=== PATIENT | male | born 1950 | race Caucasian/White ===

== ENCOUNTER 2017-07-21 07:25 | Day surgery (SDC) | payer MEDICARE ==
[2017-07-14 15:34] VITALS: BMI 30.1
[~2017-07-21 07:25] MED LIST: LACTATED RINGERS 1,000 ML IV SCH; LIDOCAINE 1% 20 ML VIAL (10MG/ML) FOR IV START INTRADERMA PRN
[2017-07-21] MEDS: CYCLOPENTOLATE 1% OPHTH SOLN 2 ML BTL OP ONE ×2 (07:40→07:55)
[2017-07-21] MEDS: PHENYLEPHRINE 10% OPHTH DROPS 5 ML BTL OP ONE ×2 (07:43→07:51)
[2017-07-21] MEDS: KETOROLAC 0.5% OPHTH DROPS 3 ML BTL OP ONE ×3 (07:46→07:59)
[2017-07-21 07:47] VITALS: RESP 16; TEMP 98
[2017-07-21 07:47] LABS: Glucose,Whole Blood 93 mg/dL (75-99)
[2017-07-21] MEDS ORDERED: PROPOFOL 10 MG/ML 20 ML VIAL IV ONE ×2 (08:07→08:41)
[2017-07-21] MEDS ORDERED: BALANCED SALT IRRIG SOLN COMB2 15 ML IRRIG.SOLN INTRAOCULA ONE ×2 (08:40→08:51)
[2017-07-21] MEDS: TIMOLOL 0.5% OPHTH SOLN (PF) 0.2 ML DROPERETTE OP ONE ×2 (08:40→08:50)
[2017-07-21] MEDS: GENTAMICIN/PREDNISOL AC OPHTH OINT 3.5GM OPHTHALMIC ONE ×2 (08:40→08:50)
[2017-07-21] MEDS ORDERED: HYALURONATE SODIUM INTRAOCULAR 1 EACH SYRINGE (10MG/ML) INTRAOCULA ONE ×2 (08:40→08:51)
[2017-07-21] MEDS: BUPIVACAINE (PF) 0.75% 5 ML, LIDOCAINE 4% (PF) 5 ML, HYALURONIDASE, HUMAN RECOMB 150 UNIT MISCELLANE ONE ×6 (08:40→08:44)
[2017-07-21] MEDS ORDERED: EPINEPHrine (PF) 0.5 ML in BALANCED SALT IRRIG SOLN COMB2 500 ML IRRIGATION ONE (08:41)
--- NOTE | 2017-07-21 09:03 | P.OP ---
Date of Procedure: 07/21/17 Preoperative Diagnosis: Postoperative Diagnosis: Procedure(s) Performed: PREOPERATIVE DIAGNOSIS: Cataract, left eye. POSTOPERATIVE DIAGNOSIS: Cataract, left eye. OPERATION: Phacoemulsification cataract, left eye. DESCRIPTION OF PROCEDURE: The patient was taken to the preoperative holding area. Intravenous Propofol was given so as to bring about adequate sedation. The following mixture was given for local anesthesia: 5 mL of 2% lidocaine, 5 mL of 0.75% Marcaine, and 1 mL of Wydase. Approximately 4 mL was injected in the retrobulbar space of the surgical eye. Additional 1 mL was then directed to the temporal area of the surgical eye. This was performed to allow adequate neurological block of the facial muscles. The patient was revived and then taken into the operative room. The patient was prepped and draped in the usual sterile manner for the operative eye. A lid speculum was put into position. The conjunctiva was resected back from the limbus in the 12 o'clock position. Bleeding was controlled with electrocautery. A #69 blade was then used and a half-thickness scleral incision approximately 1-mm posterior to the limbus was made on bare sclera. This was shelved in the clear cornea using a crescent knife. Next a 15-degree blade was used to make a stab incision at the 3 o' clock position at the corneolimbal interface. Keratome blade was then used and the superior wound was extended into the anterior chamber. Viscoelastic was injected into the anterior chamber and to maintain its form. Next, a cystotome was used and a continuous anterior capsulotomy was made without difficulty. Hydrodissection using a blunt cannula and BSS was performed. Phaco probe was then employed and a groove extending from 12 to 6 o'clock in the lens was created. A Patrice wand was used through the stab incision so as to perform a divide and conquer technique. Next an irrigation aspiration probe was utilized and any residual cortex was removed from the eye. Again, viscoelastic was injected into the anterior chamber. An Louie posterior chamber lens implant was placed in the cartridge and injected into the anterior chamber without difficulty. The ReadyCartey hook was utilized to spin the lens into position and this was again performed without any difficulty. The irrigation and aspiration probe was again employed and any residual viscoelastic was removed from the eye. Then BSS was injected into the limbal stab incision and the anterior chamber re-inflated. The conjunctiva was reapproximated using electrocautery. One drop of 0.25% Timoptic was placed over the corneal along with TobraDex ophthalmic ointment. Two sterile patches and a Ball eye shield were taped into position. The patient was transported to the recovery room in stable condition. Implants: Pathology: none sent Condition: stable Disposition: same day Indications for Procedure: Operative Findings: Description of Procedure:
[2017-07-21 09:24] VITALS: BP 119/71; PULSE 77
[2017-07-21 09:53] LABS: Glucose,Whole Blood 99 mg/dL (75-99)
== END 2017-07-21 10:17 | disposition home or self-care (01) ==
LOC: OR 07:25
PROVIDERS: ATTEND Ophthalmology
DX: H25.042 Posterior subcapsular polar age-related cataract, left eye (principal); I10 Essential (primary) hypertension; E11.9 Type 2 diabetes mellitus without complications; I25.10 Atherosclerotic heart disease of native coronary artery without angina pectoris; I25.2 Old myocardial infarction; J44.9 Chronic obstructive pulmonary disease, unspecified; M19.90 Unspecified osteoarthritis, unspecified site; K21.9 Gastro-esophageal reflux disease without esophagitis; F17.200 Nicotine dependence, unspecified, uncomplicated; Z79.84 Long term (current) use of oral hypoglycemic drugs; Z79.82 Long term (current) use of aspirin; Z79.4 Long term (current) use of insulin; Z79.899 Other long term (current) drug therapy
CPT/HCPCS: 66984; V2632; J2001; J3470; J0171; J2704

== ENCOUNTER 2022-01-06 13:26 | Inpatient (IN) | payer MEDICARE ==
[2022-01-06] MEDS ORDERED: SODIUM CHLORIDE 0.9% 500 ML 500 ML IV STA (16:04)
[2022-01-06 16:39] LABS: Basophils % (A) 0 %; Eosinophils # (A) 0.2 k/uL (0-0.7); Eosinophils % (A) 1 %; HCT 32.4 % (39.0-53.0); HGB 10.4 gm/dL (13.0-17.5); Lymphocytes # (A) 0.3 k/uL (1.0-4.8); Lymphocytes % (A) 3 %; MCV 97.1 fL (80.0-100.0); Mean Platelet Volume 8.1; Monocytes # (A) 0.4 k/uL (0-1.0); Monocytes % (A) 3 %; Neutrophils # (A) 11.3 k/uL (1.3-7.7); Neutrophils % (A) 93 %; Platelet Count 250 k/uL (150-450); RBC 3.34 m/uL (4.30-5.90); RDW 14.8 % (11.5-15.5); WBC 12.2 k/uL (3.8-10.6)
--- NOTE | 2022-01-06 16:42 | XR ---
EXAMINATION TYPE: XR chest 1V portable DATE OF EXAM: 01/06/2022 4:37 PM COMPARISON:None TECHNIQUE: Frontal view of the chest. CLINICAL INDICATION:Male, 72 years old with history of abdominal pain; FINDINGS: Lungs/Pleura: Multifocal airspace opacities. No evidence of pneumothorax or pleural effusion. Pulmonary vascularity: Unremarkable. Heart/mediastinum: Cardiomediastinal silhouette is unremarkable. Musculoskeletal: No acute osseous pathology. IMPRESSION: Subtle scattered opacities which may represent an atypical pneumonia. Correlate for covid 19.
[2022-01-06] MEDS ORDERED: ONDANSETRON 4 MG/2 ML VIAL IVP STA (16:46)
[2022-01-06] MEDS ORDERED: MORPHINE SULFATE 4 MG/ML SYRINGE IV STA (16:46)
--- NOTE | 2022-01-06 16:47 | ED ---
General Adult HPI - General Chief complaint: Abdominal Pain Stated complaint: Abd pain Time Seen by Provider: 01/06/22 16:03 Source: patient, RN notes reviewed Mode of arrival: ambulatory - History of Present Illness Initial comments: This is a pleasant 72-year-old male with a history of bladder cancer. He presents to emergency department today stating that he has a rock hard area to his abdomen. Patient was recently admitted to the hospital for urinary tract infection and pneumonia. Patient was coughing had an episode of vomiting this morning. Patient states he then noticed that he had a distended, hard area to his abdomen which is quite painful. No headache, no fever or chills, no changes in vision or hearing, no sore throat or difficulty with speech, no neck pain, no chest pain or shortness of breath, no changes in urination or bowel movements, no numbness or tingling, no extremity pain, no skin rashes or lesions. - Related Data Home Medications Medication Instructions Recorded Confirmed Aspirin 81 mg PO DAILY 06/20/15 01/06/22 Atorvastatin [Lipitor] 20 mg PO DAILY 06/20/15 01/06/22 Omeprazole [PriLOSEC] 20 mg PO DAILY 06/20/15 01/06/22 Isosorbide Mononitrate ER [Imdur] 30 mg PO DAILY 07/14/17 01/06/22 Cholecalciferol [Vitamin D3 (25 25 mcg PO DAILY 01/06/22 01/06/22 Mcg = 1000 Iu)] Clopidogrel [Plavix] 75 mg PO DAILY 01/06/22 01/06/22 Docusate [Colace] 100 mg PO DAILY 01/06/22 01/06/22 Empagliflozin [Jardiance] 10 mg PO HS 01/06/22 01/06/22 Insulin Aspart Protam & Aspart 20 unit SQ BID 01/06/22 01/06/22 [NovoLOG MIX 70-30 Flexpen] Metoclopramide [Reglan] 10 mg PO TID PRN 01/06/22 01/06/22 Montelukast [Singulair] 10 mg PO HS 01/06/22 01/06/22 lisinopriL [Zestril] 5 mg PO DAILY 01/06/22 01/06/22 Allergies Allergy/AdvReac Type Severity Reaction Status Date / Time No Known Allergies Allergy Verified 01/06/22 17:24 Review of Systems ROS Statement: Those systems with pertinent positive or pertinent negative responses have been documented in the HPI. ROS Other: All systems not noted in ROS Statement are negative. Past Medical History Past Medical History: Coronary Artery Disease (CAD), Diabetes Mellitus, Eye Disorder, GERD/Reflux, Hyperlipidemia, Hypertension, Osteoarthritis (OA), Prostate Disorder Additional Past Medical History / Comment(s): ENLARGED PROSTATE, 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 History of Any Multi-Drug Resistant Organisms: None Reported Past Surgical History: Heart Catheterization With Stent Additional Past Surgical History / Comment(s): EXC.CATARACT RT EYE WITH LENS IMPLANT, COLONOSCOPY 01/2015, FATTY TUMORS REMOVED FROM STOMACH Past Anesthesia/Blood Transfusion Reactions: No Reported Reaction Date of Last Stent Placement:: 2008 Past Psychological History: No Psychological Hx Reported Smoking Status: Current every day smoker Past Alcohol Use History: Rare Past Drug Use History: None Reported - Past Family History Mother Family Medical History: Cancer, Deep Vein Thrombosis (DVT), Hypertension Additional Family Medical History / Comment(s): OF BREAST CA Father Family Medical History: Cancer Additional Family Medical History / Comment(s): STOMACH CA General Exam General appearance: alert, in distress Head exam: Present: atraumatic, normocephalic, normal inspection Eye exam: Present: normal appearance, PERRL, EOMI. Absent: scleral icterus, conjunctival injection, periorbital swelling ENT exam: Present: normal exam, mucous membranes moist Neck exam: Present: normal inspection. Absent: tenderness, meningismus, lym phadenopathy Respiratory exam: Present: normal lung sounds bilaterally. Absent: respiratory distress, wheezes, rales, rhonchi, stridor Cardiovascular Exam: Present: regular rate, normal rhythm, normal heart sounds. Absent: systolic murmur, diastolic murmur, rubs, gallop, clicks GI/Abdominal exam: Present: soft, distended, tenderness, guarding, normal bowel sounds, other (Patient has a urostomy in the right lower quadrant area. Distended over this area with increased bowel sounds over the area as well.). Absent: rebound, rigid Extremities exam: Present: normal inspection, full ROM, normal capillary refill. Absent: tenderness, pedal edema, joint swelling, calf tenderness Back exam: Present: normal inspection Neurological exam: Present: alert, oriented X3, CN II-XII intact Psychiatric exam: Present: normal affect, normal mood Skin exam: Present: warm, dry, intact, normal color. Absent: rash Course Vital Signs 01/06/22 01/06/22 01/06/22 13:27 17:00 17:30 Temperature 97.7 F 100.0 F H Pulse Rate 77 76 72 Respiratory 18 18 20 Rate Blood Pressure 133/72 116/68 92/54 O2 Sat by Pulse 96 95 95 Oximetry 01/06/22 01/06/22 18:00 18:51 Temperature 100.4 F H Pulse Rate 92 92 Respiratory 22 20 Rate Blood Pressure 102/55 84/54 O2 Sat by Pulse 95 95 Oximetry - Reevaluation(s) Reevaluation #1: 01/06/22 18:10 Medical record is reviewed Patient still complaining of pain. Patient's CAT scan shows a strangulate hernia with perforation per radiology. I did speak to the radiologist on the phone, waiting official report. Gen. surgery called. Patient is informed of results and questions answered Patient in no distress EKG Findings - EKG Comments: EKG Findings:: EKG reveals atrial fibrillation with left axis deviation, pulmonary disease pattern, no acute ST or T-wave changes. Other intervals are normal. Medical Decision Making - Medical Decision Making Case discussed with the on-call surgeon, Dr. Coffey. He stated that he was going to call the operating room for surgical intervention of the patient's strangulated abdominal wall hernia. Patient was given 3.375 g of Zosyn here in the ED. Blood cultures were sent. In the dynamically stable. The case was discussed in detail with ED attending physician. Presentation, findings, treatment plan discussed in detail. - Lab Data Result diagrams: 01/16/22 18:56 01/16/22 05:18 Lab Results 01/06/22 01/06/22 01/06/22 Range/Units 16:29 16:29 16:29 WBC 12.2 H (3.8-10.6) k/uL RBC 3.34 L (4.30-5.90) m/uL Hgb 10.4 L (13.0-17.5) gm/dL Hct 32.4 L (39.0-53.0) % MCV 97.1 (80.0-100.0) fL MCH 31.0 (25.0-35.0) pg MCHC 32.0 (31.0-37.0) g/dL RDW 14.8 (11.5-15.5) % Plt Count 250 (150-450) k/uL MPV 8.1 Neutrophils % 93 % Lymphocytes % 3 % Monocytes % 3 % Eosinophils % 1 % Basophils % 0 % Neutrophils # 11.3 H (1.3-7.7) k/uL Lymphocytes # 0.3 L (1.0-4.8) k/uL Monocytes # 0.4 (0-1.0) k/uL Eosinophils # 0.2 (0-0.7) k/uL Basophils # 0.0 (0-0.2) k/uL Sodium 138 (137-145) mmol/L Potassium 4.8 (3.5-5.1) mmol/L Chloride 101 (98-107) mmol/L Carbon Dioxide 24 (22-30) mmol/L Anion Gap 13 mmol/L BUN 47 H (9-20) mg/dL Creatinine 3.17 H (0.66-1.25) mg/dL Est GFR (CKD-EPI)AfAm 21 (>60 ml/min/1.73 sqM) Est GFR (CKD-EPI)NonAf 18 (>60 ml/min/1.73 sqM) Glucose 252 H (74-99) mg/dL Plasma Lactic Acid Guero 1.1 (0.7-2.0) mmol/L Calcium 9.6 (8.4-10.2) mg/dL Total Bilirubin 0.5 (0.2-1.3) mg/dL AST 21 (17-59) U/L ALT 20 (4-49) U/L Alkaline Phosphatase 103 (38-126) U/L Troponin I (0.000-0.034) ng/mL Total Protein 8.0 (6.3-8.2) g/dL Albumin 4.1 (3.5-5.0) g/dL Amylase 59 (30-110) U/L Lipase 84 (23-300) U/L Blood Type Blood Type Confirm Blood Type Recheck Bld Type Recheck Status Antibody Screen Spec Expiration Date 01/06/22 01/06/22 01/06/22 Range/Units 16:29 18:45 18:46 WBC (3.8-10.6) k/uL RBC (4.30-5.90) m/uL Hgb (13.0-17.5) gm/dL Hct (39.0-53.0) % MCV (80.0-100.0) fL MCH (25.0-35.0) pg MCHC (31.0-37.0) g/dL RDW (11.5-15.5) % Plt Count (150-450) k/uL MPV Neutrophils % % Lymphocytes % % Monocytes % % Eosinophils % % Basophils % % Neutrophils # (1.3-7.7) k/uL Lymphocytes # (1.0-4.8) k/uL Monocytes # (0-1.0) k/uL Eosinophils # (0-0.7) k/uL Basophils # (0-0.2) k/uL Sodium (137-145) mmol/L Potassium (3.5-5.1) mmol/L Chloride (98-107) mmol/L Carbon Dioxide (22-30) mmol/L Anion Gap mmol/L BUN (9-20) mg/dL Creatinine (0.66-1.25) mg/dL Est GFR (CKD-EPI)AfAm (>60 ml/min/1.73 sqM) Est GFR (CKD-EPI)NonAf (>60 ml/min/1.73 sqM) Glucose (74-99) mg/dL Plasma Lactic Acid Guero (0.7-2.0) mmol/L Calcium (8.4-10.2) mg/dL Total Bilirubin (0.2-1.3) mg/dL AST (17-59) U/L ALT (4-49) U/L Alkaline Phosphatase (38-126) U/L Troponin I 0.013 (0.000-0.034) ng/mL Total Protein (6.3-8.2) g/dL Albumin (3.5-5.0) g/dL Amylase (30-110) U/L Lipase (23-300) U/L Blood Type A Positive Blood Type Confirm A Positive Blood Type Recheck No Previous Record Bld Type Recheck Status CABO Indicated Antibody Screen NEGATIVE Spec Expiration Date 01/09/2022 - 2345 Disposition Clinical Impression: Strangulated hernia of abdominal wall, Bowel perforation, Chronic renal failure Disposition: ADMITTED IP TO THIS HOSP
[2022-01-06 16:49] LABS: Albumin 4.1 g/dL (3.5-5.0); Calcium 9.6 mg/dL (8.4-10.2); Potassium 4.8 mmol/L (3.5-5.1); Total Bilirubin 0.5 mg/dL (0.2-1.3)
[2022-01-06] MEDS ORDERED: PIPERACILLIN-TAZOBACTAM 3.375 GM in SODIUM CHLORIDE 0.9% 100 ML IVPB STA (18:00)
--- NOTE | 2022-01-06 18:07 | CT ---
EXAMINATION TYPE: CT abdomen pelvis wo con CT DLP: 786.7 mGycm, Automated exposure control for dose reduction was used. DATE OF EXAM: 01/06/2022 5:31 PM COMPARISON: None. CLINICAL INDICATION:Male, 72 years old with history of abd pain ; abdominal pain, distention TECHNIQUE: Standard CT of the abdomen and pelvis without IV or oral contrast. Lack of IV or oral co ntrast limits evaluation of solid and hollow organ viscera. Coronal and sagittal reformats were perfo rmed. FINDINGS: LOWER CHEST: Unremarkable ABDOMEN LIVER: Unremarkable GALLBLADDER AND BILE DUCTS: Layering high density seen within the gallbladder lumen. PANCREAS: Unremarkable. SPLEEN: Unremarkable. ADRENAL GLANDS: Unremarkable. KIDNEYS AND URETERS: Fat stranding changes to the bilateral kidneys with mild hydronephrosis. There h as been postsurgical changes of the urinary bladder with ileal conduit. Ileal conduit extends into th e ostomy site where there is a parastomal hernia with bowel present. The ileal conduit appears obstru cted near the neck adjacent to loop of small bowel which demonstrate surgical changes. The small alexandre l is dilated there appears to be pneumobilia within the wall the small bowel lumen suggesting strangu lation. Additionally appears to be stool is seen outside the expected lumen best appreciated on 90 of axial. PELVIS BLADDER: Surgically absent with ileal conduit. REPRODUCTIVE: Unremarkable. ABDOMEN & PELVIS STOMACH AND BOWEL: Colonic diverticulosis is present. A forementioned hernia as described above. No e vidence of bowel obstruction. PERITONEUM: No evidence of pneumoperitoneum or free fluid. VASCULATURE: Fusiform infrarenal aortic aneurysm measuring up to 3.7 cm. MUSCULOSKELETAL: No acute osseous abnormalities LYMPH NODES: No gross evidence for lymphadenopathy. SOFT TISSUE/ABDOMINAL WALL: Significant subcutaneous gas is seen around the hernia site superimposed infection is possible. No organizing fluid collection in the soft tissues. Findings communicated to Dr. Ignacio Ruiz, PAC on 01/06/2022 5:[address] Benji Larkin. IMPRESSION: 1. Findings suspicious for parastomal hernia which is obstructing the patient's ileal conduit throug h the subcutaneous tissues. This results in mild bilateral hydronephrosis and hydroureter and [place] i lanza conduit. 2. Parastomal hernia containing small bowel demonstrating pneumobilia suggesting strangulation small bowel with possible perforation. 3. Subcutaneous gas which may represent superimposed infections likely secondary to #2. No evidence o f organizing fluid collection at this time to suggest abscess. 4. Renal fusiform aortic aneurysm. Measuring up to 2.7 cm. 5. Colonic diverticulosis. 6. Biliary sludge/cholelithiasis.
[2022-01-06] MEDS ORDERED: NALOXONE 0.4 MG/ML 1 ML VIAL IV PRN ×2 (18:46→20:45)
[2022-01-06] MEDS ORDERED: 0.9% NACL WITH KCL 20 MEQ/L 1,000 ML IV SCH (19:00)
[2022-01-06] MEDS ORDERED: PHENYLEPHRINE-0.9% NACL SYG 1,000 MCG/10 ML SYRINGE ONE (19:40)
[2022-01-06] MEDS ORDERED: SUCCINYLCHOLINE CHLORIDE 100 MG/5 ML SYR IV ONE (19:40)
[2022-01-06] MEDS ORDERED: fentaNYL (PF) 50 MCG/ML 2 ML AMP ONE (19:40)
[2022-01-06] MEDS ORDERED: GLYCOPYRROLATE 0.2 MG/ML 2 ML VIAL ONE (19:40)
[2022-01-06] MEDS ORDERED: NEOSTIGMINE 1 MG/ML 10 ML VIAL ONE (19:40)
[2022-01-06] MEDS ORDERED: LACTATED RINGERS 1,000 ML IV ONE ×3 (19:40→21:00)
[2022-01-06] MEDS ORDERED: PROPOFOL 10 MG/ML 20 ML VIAL IV ONE (19:40)
[2022-01-06] MEDS ORDERED: ROCURONIUM 10 MG/ML (5 ML VIAL) IV ONE (19:40)
[2022-01-06] MEDS ORDERED: ONDANSETRON 4 MG/2 ML VIAL ONE (19:40)
--- NOTE | 2022-01-06 19:55 | P.GSHP ---
History of Present Illness H&P Date: 01/06/22 Chief Complaint: Strangulated parastomal hernia This a 72-year-old male who had an episode of coughing this morning. He then states he developed a mass at his his ostomy site. Patient developed pain and tenderness throughout the day. He was seen in the emergency room. His CAT scan shows a large parastomal hernia with possible strangulated the bowel. Patient states his urostomy was done at several years ago. He has a history of bladder cancer. Past Medical History Past Medical History: Coronary Artery Disease (CAD), Diabetes Mellitus, Eye Disorder, GERD/Reflux, Hyperlipidemia, Hypertension, Osteoarthritis (OA), Prostate Disorder Additional Past Medical History / Comment(s): ENLARGED PROSTATE, 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 History of Any Multi-Drug Resistant Organisms: None Reported Past Surgical History: Heart Catheterization With Stent Additional Past Surgical History / Comment(s): EXC.CATARACT RT EYE WITH LENS IMPLANT, COLONOSCOPY 01/2015, FATTY TUMORS REMOVED FROM STOMACH Past Anesthesia/Blood Transfusion Reactions: No Reported Reaction Date of Last Stent Placement:: 2008 Past Psychological History: No Psychological Hx Reported Smoking Status: Current every day smoker Past Alcohol Use History: Rare Past Drug Use History: None Reported - Past Family History Mother Family Medical History: Cancer, Deep Vein Thrombosis (DVT), Hypertension Additional Family Medical History / Comment(s): OF BREAST CA Father Family Medical History: Cancer Additional Family Medical History / Comment(s): STOMACH CA Medications and Allergies Home Medications Medication Instructions Recorded Confirmed Type Aspirin 81 mg PO DAILY 06/20/15 01/06/22 History Atorvastatin [Lipitor] 20 mg PO DAILY 06/20/15 01/06/22 History Omeprazole [PriLOSEC] 20 mg PO DAILY 06/20/15 01/06/22 History Isosorbide Mononitrate ER [Imdur] 30 mg PO DAILY 07/14/17 01/06/22 History Cholecalciferol [Vitamin D3 (25 25 mcg PO DAILY 01/06/22 01/06/22 History Mcg = 1000 Iu)] Clopidogrel [Plavix] 75 mg PO DAILY 01/06/22 01/06/22 History Docusate [Colace] 100 mg PO DAILY 01/06/22 01/06/22 History Empagliflozin [Jardiance] 10 mg PO HS 01/06/22 01/06/22 History Insulin Aspart Protam & Aspart 20 unit SQ BID 01/06/22 01/06/22 History [NovoLOG MIX 70-30 Flexpen] Metoclopramide [Reglan] 10 mg PO TID PRN 01/06/22 01/06/22 History Montelukast [Singulair] 10 mg PO HS 01/06/22 01/06/22 History lisinopriL [Zestril] 5 mg PO DAILY 01/06/22 01/06/22 History Allergies Allergy/AdvReac Type Severity Reaction Status Date / Time No Known Allergies Allergy Verified 01/06/22 17:24 Surgical - Exam Vital Signs Temp Pulse Resp BP Pulse Ox 97.7 F 77 18 133/72 96 01/06/22 13:27 01/06/22 13:27 01/06/22 13:27 01/06/22 13:27 01/06/22 13:27 - General well developed, moderate distress - Eyes PERRL - ENT normal pinna - Neck no masses - Respiratory normal expansion - Cardiovascular Rhythm: regular - Abdomen Distended with tenderness. Obvious parastomal hernia. There is evidence of ischemia of the urostomy Results - Labs 01/06/22 16:29 01/06/22 16:29 Abnormal Lab Results - Last 24 Hours (Table) 01/06/22 01/06/22 Range/Units 16:29 16:29 WBC 12.2 H (3.8-10.6) k/uL RBC 3.34 L (4.30-5.90) m/uL Hgb 10.4 L (13.0-17.5) gm/dL Hct 32.4 L (39.0-53.0) % Neutrophils # 11.3 H (1.3-7.7) k/uL Lymphocytes # 0.3 L (1.0-4.8) k/uL BUN 47 H (9-20) mg/dL Creatinine 3.17 H (0.66-1.25) mg/dL Glucose 252 H (74-99) mg/dL Diabetes panel 01/06/22 Range/Units 16:29 Sodium 138 (137-145) mmol/L Potassium 4.8 (3.5-5.1) mmol/L Chloride 101 (98-107) mmol/L Carbon Dioxide 24 (22-30) mmol/L BUN 47 H (9-20) mg/dL Creatinine 3.17 H (0.66-1.25) mg/dL Glucose 252 H (74-99) mg/dL Calcium 9.6 (8.4-10.2) mg/dL AST 21 (17-59) U/L ALT 20 (4-49) U/L Alkaline Phosphatase 103 (38-126) U/L Total Protein 8.0 (6.3-8.2) g/dL Albumin 4.1 (3.5-5.0) g/dL Calcium panel 01/06/22 Range/Units 16:29 Calcium 9.6 (8.4-10.2) mg/dL Albumin 4.1 (3.5-5.0) g/dL Pituitary panel 01/06/22 Range/Units 16:29 Sodium 138 (137-145) mmol/L Potassium 4.8 (3.5-5.1) mmol/L Chloride 101 (98-107) mmol/L Carbon Dioxide 24 (22-30) mmol/L BUN 47 H (9-20) mg/dL Creatinine 3.17 H (0.66-1.25) mg/dL Glucose 252 H (74-99) mg/dL Calcium 9.6 (8.4-10.2) mg/dL Adrenal panel 01/06/22 Range/Units 16:29 Sodium 138 (137-145) mmol/L Potassium 4.8 (3.5-5.1) mmol/L Chloride 101 (98-107) mmol/L Carbon Dioxide 24 (22-30) mmol/L BUN 47 H (9-20) mg/dL Creatinine 3.17 H (0.66-1.25) mg/dL Glucose 252 H (74-99) mg/dL Calcium 9.6 (8.4-10.2) mg/dL Total Bilirubin 0.5 (0.2-1.3) mg/dL AST 21 (17-59) U/L ALT 20 (4-49) U/L Alkaline Phosphatase 103 (38-126) U/L Total Protein 8.0 (6.3-8.2) g/dL Albumin 4.1 (3.5-5.0) g/dL Assessment and Plan Assessment: Strangulate parastomal hernia. Patient may have bowel in the hernia. I discussed the case with Dr. Mcdaniels. We will plan for operative intervention today. Dr. Mcdaniels will be available for surgical assistance if needed.
[2022-01-06] MEDS ORDERED: HYDROcodone/APAP 5-325MG 1 EACH TAB PO PRN (20:45)
[2022-01-06] MEDS ORDERED: ONDANSETRON 4 MG/2 ML VIAL IVP PRN (20:45)
[2022-01-06] MEDS ORDERED: METOCLOPRAMIDE 5 MG/ML 2 ML VIAL IVP PRN (20:45)
[2022-01-06] MEDS ORDERED: ACETAMINOPHEN TAB 325 MG TAB PO PRN (20:45)
--- NOTE | 2022-01-06 20:45 | P.OP ---
Date of Procedure: 01/06/22 Preoperative Diagnosis: Strangulated parastomal hernia Postoperative Diagnosis: Strangulate a parastomal hernia Incisional hernia Procedure(s) Performed: Exploratory laparotomy Repair of strangulated parastomal hernia Small bowel resection with ileostomy Repair of incisional hernia Anesthesia: MARY Surgeon: Colin Weinberg Estimated Blood Loss (ml): 25 Pathology: other (Strength of small bowel) Condition: stable Disposition: PACU Description of Procedure: The patient's placed the operative table in supine position. He received general endotracheal tube anesthesia. His abdomen was prepped and draped usual fashion. Patient had a urostomy right lower quadrant. The abdomen was entered through a midline incision. There was an incisional hernia located in the midline incision. The pleural cavity is entered. The parastomal hernia was visualized. The granulated contents appear stable hernia were tracked in with gentle pressure. There was a segment of small bowel was nonviable. At this point the small bowel was transected proximally distally with the LEIGHTON stapler. The distal end was approximately 4 inches from the ileocecal valve. The abdomen was irrigated there is no bleeding seen. The urostomy entering the fascia appeared to be viable. At this point I had a telephone conversation with Dr. Mcdaniels. I discussed with him the operative findings. It was decided to observe the urostomy and if needed in the future revises for ischemia. The urostomy was producing urine. At this point the parastomal hernia was closed using #1 PDS suture. The ileostomy was brought up in the left upper quadrant. The abdomen was irrigated there is no bleeding seen. The fascia was closed with looped #1 PDS suture. The incisional hernias repaired during fascial closure. Skin was closed yuliya. The ileostomy was then matured with 3-0 Vicryl suture. At the end of the case the urostomy appeared to be less dusky than it had prior to the procedure starting. Patient was extubated sent to recovery room stable condition.
[2022-01-06] MEDS ORDERED: ACETAMINOPHEN IV (For NPO) 1,000 MG/100 ML VIAL IVPB ONE (20:57)
[2022-01-06] MEDS ORDERED: HYDROmorphone 0.5 MG/0.5 ML SYRINGE IVP ONE ×5 (20:58→22:00)
[2022-01-06] MEDS ORDERED: diphenhydrAMINE 50 MG/ML 1 ML VIAL IVP ONE ×2 (21:40→21:45)
[2022-01-06] MEDS ORDERED: ALBUMIN HUMAN 5% (12.5gm) 250 ML BOTTLE IVPB ONE (21:45)
[2022-01-07] MEDS: HYDROmorphone 1 MG/ML 1 ML SYRINGE IVP PRN ×6 (00:13→21:08)
[2022-01-07] MEDS: D5-0.45% NACL WITH KCL 20MEQ/L 1,000 ML IV SCH ×2 (00:15→08:18)
[2022-01-07 06:09] LABS: ALT 18 U/L (4-49); AST 21 U/L (17-59); African American GFR (CKD) 20 (>60 ml/min/1.73 sqM); Albumin 2.9 g/dL (3.5-5.0); Alkaline Phosphatase 57 U/L (38-126); Anion Gap 11 mmol/L; Blood Urea Nitrogen 52 mg/dL (9-20); Calcium 8.5 mg/dL (8.4-10.2); Carbon Dioxide 18 mmol/L (22-30); Chloride 105 mmol/L (98-107); Glucose 340 mg/dL (74-99); Non-African American GFR(CKD) 18 (>60 ml/min/1.73 sqM); Sodium 134 mmol/L (137-145); Total Bilirubin 0.7 mg/dL (0.2-1.3); Total Protein 5.9 g/dL (6.3-8.2)
[2022-01-07 06:35] LABS: Basophils % (A) 1 %; Eosinophils % (A) 0 %; HCT 37.9 % (39.0-53.0); HGB 11.2 gm/dL (13.0-17.5); Hypochromasia Marked; Lymphocytes # (A) 0.2 k/uL (1.0-4.8); Lymphocytes % (A) 8 %; MCH 30.2 pg (25.0-35.0); MCHC 29.4 g/dL (31.0-37.0); Macrocytosis Slight; Mean Platelet Volume 7.7; Monocytes # (A) 0.1 k/uL (0-1.0); Monocytes % (A) 5 %; Neutrophils # (A) 2.2 k/uL (1.3-7.7); Neutrophils % (A) 85 %; Platelet Count 226 k/uL (150-450); RBC 3.69 m/uL (4.30-5.90); RDW 15.4 % (11.5-15.5); WBC 2.6 k/uL (3.8-10.6)
[2022-01-07 06:39] LABS: Potassium 6.1 mmol/L (3.5-5.1)
[2022-01-07 06:59] LABS: MCV 102.7 fL (80.0-100.0)
[2022-01-07] MEDS ORDERED: HYDROmorphone 0.5 MG/0.5 ML SYRINGE IVP PRN (07:00)
[2022-01-07 07:10] LABS: Glucose,Whole Blood 383 mg/dL (75-99)
--- NOTE | 2022-01-07 07:48 | P.GSCN ---
History of Present Illness Consult date: 01/07/22 History of present illness: 72-year-old gentleman in the hospital with an incarcerated peristomal hernia. He required emergency surgical exploration with resection of small bowel, ileostomy. The patient has a known history of bladder cancer. He had a cystectomy with ileal loop approximately 3 years ago at [facility]. He is following with his urologist there. He apparently did some heavy coughing yesterday and developed a parastomal hernia with incarcerated bowel and necrosis. contacted me last night when he was in the operating room because the ileal loop looked dusky on top of the necrotic small bowel that he had to resect a. The patient was making good urine. The question is whether to do anything to the loop at this point in time or wait. Due to the difficulty that would be required to deal with the dusky loop we elected to observe this as it may pink up in time. The patient is examined at the bedside this morning. He is uncomfortable from the surgery. He has had no problems with his loop. Review of Systems All systems: negative - Constitutional Denies fever, Denies weight loss - EENT Eyes: denies blurred vision Ears, nose, mouth and throat: Denies dysphagia - Cardiovascular Denies chest pain, Denies shortness of breath - Respiratory Denies cough, Denies 7 - Gastrointestinal Reports as per HPI - Genitourinary Denies dysuria, Denies hematuria - Integumentary Denies rash, Denies unusual bruising - Neurological Denies headaches, Denies syncope - Hematologic/Lymphatic Denies easy bleeding, Denies easy bruising Past Medical History Past Medical History: Coronary Artery Disease (CAD), Diabetes Mellitus, Eye Disorder, GERD/Reflux, Hyperlipidemia, Hypertension, Osteoarthritis (OA), Prostate Disorder Additional Past Medical History / Comment(s): ENLARGED PROSTATE, 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 Last Myocardial Infarction Date:: 2008 History of Any Multi-Drug Resistant Organisms: None Reported Past Surgical History: Heart Catheterization With Stent Additional Past Surgical History / Comment(s): EXC.CATARACT RT EYE WITH LENS IMPLANT, COLONOSCOPY 01/2015, FATTY TUMORS REMOVED FROM STOMACH Past Anesthesia/Blood Transfusion Reactions: No Reported Reaction Date of Last Stent Placement:: 2008 Past Psychological History: No Psychological Hx Reported Smoking Status: Current every day smoker Past Alcohol Use History: Rare Past Drug Use History: None Reported - Past Family History Mother Family Medical History: Cancer, Deep Vein Thrombosis (DVT), Hypertension Additional Family Medical History / Comment(s): OF BREAST CA Father Family Medical History: Cancer Additional Family Medical History / Comment(s): STOMACH CA Medications and Allergies Home Medications Medication Instructions Recorded Confirmed Type Aspirin 81 mg PO DAILY 06/20/15 01/06/22 History Atorvastatin [Lipitor] 20 mg PO DAILY 06/20/15 01/06/22 History Omeprazole [PriLOSEC] 20 mg PO DAILY 06/20/15 01/06/22 History Isosorbide Mononitrate ER [Imdur] 30 mg PO DAILY 07/14/17 01/06/22 History Cholecalciferol [Vitamin D3 (25 25 mcg PO DAILY 01/06/22 01/06/22 History Mcg = 1000 Iu)] Clopidogrel [Plavix] 75 mg PO DAILY 01/06/22 01/06/22 History Docusate [Colace] 100 mg PO DAILY 01/06/22 01/06/22 History Empagliflozin [Jardiance] 10 mg PO HS 01/06/22 01/06/22 History Insulin Aspart Protam & Aspart 20 unit SQ BID 01/06/22 01/06/22 History [NovoLOG MIX 70-30 Flexpen] Metoclopramide [Reglan] 10 mg PO TID PRN 01/06/22 01/06/22 History Montelukast [Singulair] 10 mg PO HS 01/06/22 01/06/22 History lisinopriL [Zestril] 5 mg PO DAILY 01/06/22 01/06/22 History Allergies Allergy/AdvReac Type Severity Reaction Status Date / Time No Known Allergies Allergy Verified 01/06/22 17:24 Surgical - Exam Vital Signs Temp Pulse Resp BP Pulse Ox 97.7 F 77 18 133/72 96 01/06/22 13:27 01/06/22 13:27 01/06/22 13:27 01/06/22 13:27 01/06/22 13:27 - General well developed, well nourished, moderate distress - Eyes PERRL - ENT no hearing loss - Neck trachea midline - Respiratory normal expansion, normal respiratory effort - Cardiovascular Rhythm: regular - Abdomen There is a left upper quadrant ileostomy with stool. There is a right lower quadrant ileal loop that is somewhat dusky. The urine is clear. Abdomen: soft, tender - Genitourinary normal penis with no external lesions, testicles present Results - Labs 01/07/22 05:20 01/07/22 05:20 Abnormal Lab Results - Last 24 Hours (Table) 01/06/22 01/06/22 01/06/22 Range/Units 16:29 16:29 22:05 WBC 12.2 H (3.8-10.6) k/uL RBC 3.34 L (4.30-5.90) m/uL Hgb 10.4 L (13.0-17.5) gm/dL Hct 32.4 L (39.0-53.0) % MCV (80.0-100.0) fL MCHC (31.0-37.0) g/dL Neutrophils # 11.3 H (1.3-7.7) k/uL Lymphocytes # 0.3 L (1.0-4.8) k/uL Sodium (137-145) mmol/L Potassium (3.5-5.1) mmol/L Carbon Dioxide (22-30) mmol/L BUN 47 H (9-20) mg/dL Creatinine 3.17 H (0.66-1.25) mg/dL Glucose 252 H (74-99) mg/dL POC Glucose (mg/dL) (75-99) mg/dL Plasma Lactic Acid Guero 2.2 H* (0.7-2.0) mmol/L Total Protein (6.3-8.2) g/dL Albumin (3.5-5.0) g/dL 01/07/22 01/07/22 01/07/22 Range/Units 01:27 05:20 05:20 WBC 2.6 L (3.8-10.6) k/uL RBC 3.69 L (4.30-5.90) m/uL Hgb 11.2 L (13.0-17.5) gm/dL Hct 37.9 L (39.0-53.0) % MCV 102.7 H D (80.0-100.0) fL MCHC 29.4 L (31.0-37.0) g/dL Neutrophils # (1.3-7.7) k/uL Lymphocytes # (1.0-4.8) k/uL Sodium 134 L (137-145) mmol/L Potassium 6.1 H* (3.5-5.1) mmol/L Carbon Dioxide 18 L (22-30) mmol/L BUN 52 H (9-20) mg/dL Creatinine 3.29 H (0.66-1.25) mg/dL Glucose 340 H (74-99) mg/dL POC Glucose (mg/dL) (75-99) mg/dL Plasma Lactic Acid Guero 2.9 H* (0.7-2.0) mmol/L Total Protein 5.9 L (6.3-8.2) g/dL Albumin 2.9 L (3.5-5.0) g/dL 01/07/22 01/07/22 Range/Units 05:20 07:07 WBC (3.8-10.6) k/uL RBC (4.30-5.90) m/uL Hgb (13.0-17.5) gm/dL Hct (39.0-53.0) % MCV (80.0-100.0) fL MCHC (31.0-37.0) g/dL Neutrophils # (1.3-7.7) k/uL Lymphocytes # (1.0-4.8) k/uL Sodium (137-145) mmol/L Potassium (3.5-5.1) mmol/L Carbon Dioxide (22-30) mmol/L BUN (9-20) mg/dL Creatinine (0.66-1.25) mg/dL Glucose (74-99) mg/dL POC Glucose (mg/dL) 383 H (75-99) mg/dL Plasma Lactic Acid Guero 3.5 H* (0.7-2.0) mmol/L Total Protein (6.3-8.2) g/dL Albumin (3.5-5.0) g/dL Diabetes panel 01/06/22 01/07/22 Range/Units 16:29 05:20 Sodium 138 134 L (137-145) mmol/L Potassium 4.8 6.1 H* (3.5-5.1) mmol/L Chloride 101 105 (98-107) mmol/L Carbon Dioxide 24 18 L (22-30) mmol/L BUN 47 H 52 H (9-20) mg/dL Creatinine 3.17 H 3.29 H (0.66-1.25) mg/dL Glucose 252 H 340 H (74-99) mg/dL Calcium 9.6 8.5 (8.4-10.2) mg/dL AST 21 21 (17-59) U/L ALT 20 18 (4-49) U/L Alkaline Phosphatase 103 57 (38-126) U/L Total Protein 8.0 5.9 L (6.3-8.2) g/dL Albumin 4.1 2.9 L (3.5-5.0) g/dL Calcium panel 01/06/22 01/07/22 Range/Units 16:29 05:20 Calcium 9.6 8.5 (8.4-10.2) mg/dL Albumin 4.1 2.9 L (3.5-5.0) g/dL Pituitary panel 01/06/22 01/07/22 Range/Units 16:29 05:20 Sodium 138 134 L (137-145) mmol/L Potassium 4.8 6.1 H* (3.5-5.1) mmol/L Chloride 101 105 (98-107) mmol/L Carbon Dioxide 24 18 L (22-30) mmol/L BUN 47 H 52 H (9-20) mg/dL Creatinine 3.17 H 3.29 H (0.66-1.25) mg/dL Glucose 252 H 340 H (74-99) mg/dL Calcium 9.6 8.5 (8.4-10.2) mg/dL Adrenal panel 01/06/22 01/07/22 Range/Units 16:29 05:20 Sodium 138 134 L (137-145) mmol/L Potassium 4.8 6.1 H* (3.5-5.1) mmol/L Chloride 101 105 (98-107) mmol/L Carbon Dioxide 24 18 L (22-30) mmol/L BUN 47 H 52 H (9-20) mg/dL Creatinine 3.17 H 3.29 H (0.66-1.25) mg/dL Glucose 252 H 340 H (74-99) mg/dL Calcium 9.6 8.5 (8.4-10.2) mg/dL Total Bilirubin 0.5 0.7 (0.2-1.3) mg/dL AST 21 21 (17-59) U/L ALT 20 18 (4-49) U/L Alkaline Phosphatase 103 57 (38-126) U/L Total Protein 8.0 5.9 L (6.3-8.2) g/dL Albumin 4.1 2.9 L (3.5-5.0) g/dL Assessment and Plan Assessment: Impression: Peristomal hernia, acute with necrotic bowel, resected. History of bladder cancer status post cystectomy with ileal loop placement. Recommendations: We will continue to observe this loop. Hopefully the superficial layer will slough in the loop will remain viable. If not he may need a loop revision. Need to be done at a tertiary center as we no longer doing this surgical procedure here urologically
[2022-01-07] MEDS ORDERED: PIPERACILLIN-TAZOBACTAM 3.375 GM in SODIUM CHLORIDE 0.9% 100 ML IVPB SCH (08:00)
[2022-01-07] MEDS: SODIUM CHLORIDE 0.9% 1,000 ML IV SCH ×2 (08:36→18:11)
[2022-01-07] MEDS ORDERED: INSULIN REGULAR 100 UNIT/ML VIAL (IV) IV ONE (08:48)
[2022-01-07] MEDS ORDERED: DEXTROSE 50% SYRINGE 50 ML IVP STA (08:49)
[2022-01-07] MEDS ORDERED: DEXTROSE 50% SYRINGE 50 ML IVP ONE (09:13)
--- NOTE | 2022-01-07 10:33 | P.PN ---
Subjective Progress Note Date: 01/07/22 CHIEF COMPLAINT: Strangulated parastomal hernia HISTORY OF PRESENT ILLNESS: Patient is status post Exploratory laparotomy, Repair of strangulated parastomal hernia, Small bowel resection with ileostomy and Repair of incisional hernia. Patient complaining of abdominal pain. He just received IV Dilaudid. He did have a temp last night of 101. He has had some tachycardia and hypotensive. His white count has normalized from 12.2-2.6. HGB 11.2 Potassium elevated at 6.1 creatinine elevated at 2.9 lactic acid 3.5 blood sugar 340. Positive blood cultures. Patient does have a known history of bladder cancer with urostomy. Patient seen by urology. Urine output is pinkish in color. Patient denies any nausea or vomiting. His ostomy does have stool. Patient seen and examined with Dr. allen PHYSICAL EXAM: VITAL SIGNS: Reviewed. GENERAL: Well-developed in no acute distress. HEENT: No sclera icterus. Extraocular movements grossly intact. Moist buccal mucosa. Head is atraumatic, normocephalic. ABDOMEN: Soft. Nondistended. Incisional dressing small area of blood saturation at the distal aspect. Stool present in the ileostomy bag . urostomy urine is pinkish in color stoma from the urostomy is dusky. Per her surgeon the urostomy stoma has shown improvement in color. NEUROLOGIC: Alert and oriented. Cranial nerves II through XII grossly intact. ASSESSMENT: 1. Strangulated parastomal hernia and incisional hernia status post Exploratory laparotomy, Repair of strangulated parastomal hernia, Small bowel resection with ileostomy and Repair of incisional hernia 2. History of bladder cancer with urostomy 3. Hyperkalemia 4. Acute kidney injury 5. Possible sepsis with hypotension, fever, tachycardia PLAN: -Patient is being transferred to the ICU -Dr. Allen did discuss CODE STATUS with patient. Patient wishes to be a no code -Keep patient nothing by mouth -Add IV Tylenol for pain -Continue the Dilaudid -Continue to monitor potassium level -Changed IV fluids normal saline due to elevated potassium and elevated blood sugars.Service has also corrected potassium with insulin and D5 -Repeat potassium level at noon -DVT prophylaxis subcu heparin Physician Director Of Mobile Marketing note has been reviewed by physician. Signing provider agrees with the documented findings, assessment, and plan of care. Objective - Vital Signs Vital signs: Vital Signs Temp 97.5 F L 01/07/22 08:00 Pulse 115 H 01/07/22 08:00 Resp 28 H 01/07/22 08:00 BP 88/54 01/07/22 08:00 Pulse Ox 96 01/07/22 08:00 Intake & Output 01/06/22 01/07/22 01/07/22 18:59 06:59 18:59 Intake Total 2500 Output Total 275 Balance 2225 Weight 83.915 kg 83.915 kg Intake: IV 2500 Output: Urine 200 Estimated Blood Loss 75 - Labs CBC & Chem 7: 01/07/22 05:20 01/07/22 11:39 Labs: Abnormal Lab Results - Last 24 Hours (Table) 01/06/22 01/06/22 01/06/22 Range/Units 16:29 16:29 22:05 WBC 12.2 H (3.8-10.6) k/uL RBC 3.34 L (4.30-5.90) m/uL Hgb 10.4 L (13.0-17.5) gm/dL Hct 32.4 L (39.0-53.0) % MCV (80.0-100.0) fL MCHC (31.0-37.0) g/dL Neutrophils # 11.3 H (1.3-7.7) k/uL Lymphocytes # 0.3 L (1.0-4.8) k/uL Sodium (137-145) mmol/L Potassium (3.5-5.1) mmol/L Carbon Dioxide (22-30) mmol/L BUN 47 H (9-20) mg/dL Creatinine 3.17 H (0.66-1.25) mg/dL Glucose 252 H (74-99) mg/dL POC Glucose (mg/dL) (75-99) mg/dL Plasma Lactic Acid Guero 2.2 H* (0.7-2.0) mmol/L Total Protein (6.3-8.2) g/dL Albumin (3.5-5.0) g/dL 01/07/22 01/07/22 01/07/22 Range/Units 01:27 05:20 05:20 WBC 2.6 L (3.8-10.6) k/uL RBC 3.69 L (4.30-5.90) m/uL Hgb 11.2 L (13.0-17.5) gm/dL Hct 37.9 L (39.0-53.0) % MCV 102.7 H D (80.0-100.0) fL MCHC 29.4 L (31.0-37.0) g/dL Neutrophils # (1.3-7.7) k/uL Lymphocytes # (1.0-4.8) k/uL Sodium 134 L (137-145) mmol/L Potassium 6.1 H* (3.5-5.1) mmol/L Carbon Dioxide 18 L (22-30) mmol/L BUN 52 H (9-20) mg/dL Creatinine 3.29 H (0.66-1.25) mg/dL Glucose 340 H (74-99) mg/dL POC Glucose (mg/dL) (75-99) mg/dL Plasma Lactic Acid Guero 2.9 H* (0.7-2.0) mmol/L Total Protein 5.9 L (6.3-8.2) g/dL Albumin 2.9 L (3.5-5.0) g/dL 01/07/22 01/07/22 01/07/22 Range/Units 05:20 07:07 08:49 WBC (3.8-10.6) k/uL RBC (4.30-5.90) m/uL Hgb (13.0-17.5) gm/dL Hct (39.0-53.0) % MCV (80.0-100.0) fL MCHC (31.0-37.0) g/dL Neutrophils # (1.3-7.7) k/uL Lymphocytes # (1.0-4.8) k/uL Sodium (137-145) mmol/L Potassium (3.5-5.1) mmol/L Carbon Dioxide (22-30) mmol/L BUN (9-20) mg/dL Creatinine (0.66-1.25) mg/dL Glucose (74-99) mg/dL POC Glucose (mg/dL) 383 H (75-99) mg/dL Plasma Lactic Acid Guero 3.5 H* 4.4 H* (0.7-2.0) mmol/L Total Protein (6.3-8.2) g/dL Albumin (3.5-5.0) g/dL
[2022-01-07] MEDS ORDERED: IPRATROPIUM-ALBUTEROL 3 ML NEB INHALATION PRN (10:38)
[2022-01-07] MEDS: INSULIN ASPART (NovoLOG) 100 UNIT/ML VIAL SQ SCH ×4 (10:46→21:06)
[2022-01-07] MEDS: ACETAMINOPHEN IV (For NPO) 1,000 MG in EMPTY BAG 1 BAG IVPB SCH ×3 (10:49→23:30)
[2022-01-07] MEDS: PANTOPRAZOLE 40 MG/10 ML VIAL IVP SCH (10:50)
[2022-01-07] MEDS ORDERED: SODIUM CHLORIDE 0.9% 500 ML 500 ML IV ONE ×2 (11:22→11:23)
[2022-01-07 11:56] LABS: Glucose,Whole Blood 307 mg/dL (75-99)
[2022-01-07 11:58] LABS: Band Neutrophils % 27 %; Basophils # (M) 0.03 k/uL (0-0.2); Lymphocytes # (M) 0.26 k/uL (1.0-4.8); Metamyelocytes % 4 %; Monocytes # (M) 0.13 k/uL (0-1.0); Neutrophils % (M) 55 %; Nucleated Red Blood Cells 0 /100 WBC (0-0); Total Cells Counted 200
[2022-01-07] MEDS: INSULIN DETEMIR (LEVEMIR) 100 UNIT/ML SYR SQ SCH (11:58)
[2022-01-07 12:08] LABS: Calcium 8.1 mg/dL (8.4-10.2); Potassium 5.5 mmol/L (3.5-5.1)
[2022-01-07] MEDS: IPRATROPIUM-ALBUTEROL 3 ML NEB INHALATION SCH ×3 (12:18→20:23)
[2022-01-07 12:34] LABS: Glucose,Whole Blood 293 mg/dL (75-99)
--- NOTE | 2022-01-07 12:49 | P.CNPUL ---
History of Present Illness Consult date: 01/07/22 Requesting physician: Cale Jimenez Reason for consult: other (Critical care management) Chief complaint: Abdominal pain History of present illness: This is a 72-year-old male patient with a known history of coronary artery disease with previous stent placement, diabetes mellitus, hypertension, hyperlipidemia, BPH, chronic and ongoing tobacco dependence. He also has a history of urostomy that was done at [facility] several years ago and previous bladder cancer. He had presented to the emergency room yesterday with complaints of abdominal painand distention. CAT scan of the abdomen revealed cyst addition for parastomal hernia which is obstructing the patient Werner conduit through the subcutaneous tissues. There is mild bilateral hydronephrosis. Parastomal hernia containing small bowel demonstrated pneumobilia suggesting strangulation small bowel with possible perforation. Subcutaneous gas which may represent superimposed infections secondary to the small bowel strangulation and possible perforation. White count 12.2. Hemoglobin 10.4. Sodium 138. Potassium 4.8. BUN 47. Creatinine 3.17. Glucose 252. Plasma lactic acid 2.2. Troponin 0.013. House virus by PCR not detected. He was taken to the operating room last evening and had undergone an exploratory laparotomy, repair of strangulated parastomal hernia, small bowel resection with ileostomy, repair of incisional hernia. Blood cultures preliminary revealing gram-negative bacilli. Lactic acid up to 4.9 today. The patient had issues with hypotension and tachycardia this morning. We're consulted for ICU management. He was transferred there per medicine. 1 L of fluid resuscitation was given. Current labs revealed WBC 2.6. Hemoglobin 11.2. Sodium 133. Potassium 5.5. Chloride 105. Bicarb 17. BUN 55. Creatinine 3.80. Glucose 305. currently on Zosyn. He is seen today in consultation. He is awake and alert. He is having some surgical site pain but denies any worsening shortness of breath. No cough or congestion. No fever. Review of Systems REVIEW OF SYSTEMS: CONSTITUTIONAL: Denies any recent significant weight loss or weight gain. EYES: Denies change in vision. EARS, NOSE, MOUTH, THROAT: Denies headaches, denies sore throat. CARDIOVASCULAR: Denies chest pain, palpitations or syncopal episodes. RESPIRATORY: Denies shortness of breath, cough, congestion or hemoptysis. GASTROINTESTINAL: Positive for surgical site abdominal pain GENITOURINARY: Denies hematuria, denies infections. MUSKULOSKELETAL: Denies pain, denies swelling. INTEGUMENTARY: Denies rash, denies eczema. NEUROLOGICAL: Denies recent memory loss, no recent seizure activity. PSYCHIATRIC: Denies anxiety, denies depression. HEMATOLOGIC/LYMPHATIC: Denies anemia, denies enlarged lymph nodes. Past Medical History Past Medical History: Coronary Artery Disease (CAD), Diabetes Mellitus, Eye Disorder, GERD/Reflux, Hyperlipidemia, Hypertension, Osteoarthritis (OA), Prostate Disorder Additional Past Medical History / Comment(s): ENLARGED PROSTATE, 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 Last Myocardial Infarction Date:: 2008 History of Any Multi-Drug Resistant Organisms: None Reported Past Surgical History: Heart Catheterization With Stent Additional Past Surgical History / Comment(s): EXC.CATARACT RT EYE WITH LENS IMPLANT, COLONOSCOPY 01/2015, FATTY TUMORS REMOVED FROM STOMACH Past Anesthesia/Blood Transfusion Reactions: No Reported Reaction Date of Last Stent Placement:: 2008 Past Psychological History: No Psychological Hx Reported Smoking Status: Current every day smoker Past Alcohol Use History: Rare Past Drug Use History: None Reported - Past Family History Mother Family Medical History: Cancer, Deep Vein Thrombosis (DVT), Hypertension Additional Family Medical History / Comment(s): OF BREAST CA Father Family Medical History: Cancer Additional Family Medical History / Comment(s): STOMACH CA Medications and Allergies Home Medications Medication Instructions Recorded Confirmed Type Aspirin 81 mg PO DAILY 06/20/15 01/06/22 History Atorvastatin [Lipitor] 20 mg PO DAILY 06/20/15 01/06/22 History Omeprazole [PriLOSEC] 20 mg PO DAILY 06/20/15 01/06/22 History Isosorbide Mononitrate ER [Imdur] 30 mg PO DAILY 07/14/17 01/06/22 History Cholecalciferol [Vitamin D3 (25 25 mcg PO DAILY 01/06/22 01/06/22 History Mcg = 1000 Iu)] Clopidogrel [Plavix] 75 mg PO DAILY 01/06/22 01/06/22 History Docusate [Colace] 100 mg PO DAILY 01/06/22 01/06/22 History Empagliflozin [Jardiance] 10 mg PO HS 01/06/22 01/06/22 History Insulin Aspart Protam & Aspart 20 unit SQ BID 01/06/22 01/06/22 History [NovoLOG MIX 70-30 Flexpen] Metoclopramide [Reglan] 10 mg PO TID PRN 01/06/22 01/06/22 History Montelukast [Singulair] 10 mg PO HS 01/06/22 01/06/22 History lisinopriL [Zestril] 5 mg PO DAILY 01/06/22 01/06/22 History Allergies Allergy/AdvReac Type Severity Reaction Status Date / Time No Known Allergies Allergy Verified 01/06/22 17:24 Physical Exam Vitals: Vital Signs Temp Pulse Pulse Resp BP BP Pulse Ox 01/07/22 12:02 96/54 01/07/22 11:44 90/58 01/07/22 11:29 97.6 F 119 H 28 H 78/47 97 01/07/22 11:15 97.6 F 119 H 28 H 78/47 97 01/07/22 08:00 97.5 F L 115 H 28 H 88/54 96 01/07/22 03:49 97.6 F 112 H 18 91/58 94 L 01/06/22 22:55 98.7 F 111 H 18 105/55 96 01/06/22 22:40 93 18 90/48 97 01/06/22 22:25 90 16 102/70 98 01/06/22 22:10 88 16 100/50 97 01/06/22 21:55 102 H 18 87/51 97 01/06/22 21:40 100 18 92/52 100 01/06/22 21:25 96 18 70/40 99 01/06/22 21:10 90 18 110/60 100 01/06/22 20:53 101.6 F H 89 18 95/50 97 01/06/22 18:51 100.4 F H 92 20 84/54 95 01/06/22 18:00 92 22 102/55 95 01/06/22 17:30 100.0 F H 72 20 92/54 95 01/06/22 17:00 76 18 116/68 95 01/06/22 13:27 97.7 F 77 18 133/72 96 Intake and Output 01/06/22 01/07/22 01/07/22 22:59 06:59 14:59 Intake Total 2500 Output Total 75 200 400 Balance 2425 -200 -400 Intake: IV 2500 Output: Drainage 200 Right Abdomen 200 Urine 200 200 Estimated Blood Loss 75 Other: Weight 83.915 kg 83.915 kg GENERAL EXAM: Alert, pleasant 72-year-old gentleman, on 3 L nasal cannula, fairly comfortable in no apparent distress. HEAD: Normocephalic. EYES: Normal reaction of pupils, equal size. NOSE: Clear with pink turbinates. THROAT: No erythema or exudates. NECK: No masses, no JVD. CHEST: No chest wall deformity. LUNGS: Equal air entry with faint crackles in the posterior bases. CVS: S1 and S2 normal with no audible murmur, regular rhythm. ABDOMEN: Colostomy on the left, ileostomy on the right, midline dressing dry and intact. SPINE: No scoliosis or deformity SKIN: No rashes CENTRAL NERVOUS SYSTEM: No focal deficits, tone is normal in all 4 extremities. EXTREMITIES: There is no peripheral edema. No clubbing, no cyanosis. Peripheral pulses are intact. Results - Laboratory Findings CBC and BMP: 01/07/22 05:20 01/07/22 11:39 Abnormal lab findings: Abnormal Labs 01/06/22 01/06/22 01/06/22 16:29 16:29 22:05 WBC 12.2 H RBC 3.34 L Hgb 10.4 L Hct 32.4 L MCV MCHC Neutrophils # 11.3 H Lymphocytes # 0.3 L Lymphocytes # (Manual) Metamyelocytes # (Man) Sodium Potassium Carbon Dioxide BUN 47 H Creatinine 3.17 H Glucose 252 H POC Glucose (mg/dL) Plasma Lactic Acid Guero 2.2 H* Calcium Total Protein Albumin 01/07/22 01/07/22 01/07/22 01:27 05:20 05:20 WBC 2.6 L RBC 3.69 L Hgb 11.2 L Hct 37.9 L MCV 102.7 H D MCHC 29.4 L Neutrophils # Lymphocytes # 0.2 L Lymphocytes # (Manual) 0.26 L Metamyelocytes # (Man) 0.10 H Sodium 134 L Potassium 6.1 H* Carbon Dioxide 18 L BUN 52 H Creatinine 3.29 H Glucose 340 H POC Glucose (mg/dL) Plasma Lactic Acid Guero 2.9 H* Calcium Total Protein 5.9 L Albumin 2.9 L 01/07/22 01/07/22 01/07/22 05:20 07:07 08:49 WBC RBC Hgb Hct MCV MCHC Neutrophils # Lymphocytes # Lymphocytes # (Manual) Metamyelocytes # (Man) Sodium Potassium Carbon Dioxide BUN Creatinine Glucose POC Glucose (mg/dL) 383 H Plasma Lactic Acid Guero 3.5 H* 4.4 H* Calcium Total Protein Albumin 01/07/22 01/07/22 01/07/22 11:39 11:39 11:54 WBC RBC Hgb Hct MCV MCHC Neutrophils # Lymphocytes # Lymphocytes # (Manual) Metamyelocytes # (Man) Sodium 133 L Potassium 5.5 H Carbon Dioxide 17 L BUN 55 H Creatinine 3.80 H Glucose 305 H POC Glucose (mg/dL) 307 H Plasma Lactic Acid Guero 4.9 H* Calcium 8.1 L Total Protein Albumin - Diagnostic Findings Chest x-ray: image reviewed Assessment and Plan Assessment: 1 Acute abdominal pain secondary to parastomal hernia containing small bowel demonstrating pneumobilia suggesting strangulation small bowel with possible perforation. Subcutaneous gas which may represent superimposed infection. No organizing fluid collection of the time to suggest abscess. Status post exploratory laparotomy, repair of strangulated parastomal hernia, small bowel resection with ileostomy, repair of incisional hernia performed on 01/06/2022. This is postoperative day #1. 2 Sepsis secondary to gram-negative bacteremia 3 Hypotension secondary to above 4 Lactic acidosis secondary to above, currently 4.9 5 Acute renal failure, current creatinine 3.8 6 Hyperkalemia secondary to above, current potassium 5.5 7 History of bladder cancer with previous ileostomy. 8 Diabetes mellitus with subsequent hyperglycemia 9 Hyperlipidemia 10 BPH 11 Visual disorder 12 Coronary artery disease with previous stent placement 13 Chronic tobacco dependence Plan: The patient was seen and evaluated in the ICU He is expressing that he is a DO NOT RESUSCITATE/DO NOT INTUBATE CODE STATUS We'll continue with fluid resuscitation Correct electrolyte imbalances Await final blood culture results Currently on Zosyn, ID is consulted We will continue to follow and make further recommendations based on his clinical status I, the cosigning physician, performed a history & physical examination of the patient. Lungs sounds with crackles in the posterior bases. Maintaining good O2 saturations in the 90s on 3 L/m per nasal cannular. I discussed the assessment and plan of care with my nurse practitioner, Cony Siegel. I attest to the above consultation as dictated by her. Time with Patient: Greater than 30
[2022-01-07] MEDS ORDERED: SODIUM CHLORIDE 0.9% 1,000 ML IV ONE ×2 (14:11→15:23)
--- NOTE | 2022-01-07 15:08 | XR ---
EXAMINATION TYPE: XR chest 1V portable DATE OF EXAM: 01/07/2022 COMPARISON: 01/06/2022 HISTORY: Central line placement TECHNIQUE: Single frontal view of the chest is obtained. FINDINGS: Right-sided central line is low in position near the right atrium IVC junction. Diffuse in terstitial pattern with bilateral infiltrate and small effusion. Atherosclerotic change aorta. Hypert rophic and degenerative change of the spine. No pneumothorax. IMPRESSION: 1. Bilateral infiltrate and pleural effusion with suspected chronic underlying interstitial pulmonary fibrosis. 2. No pneumothorax. Central line is somewhat low in position correlate clinically as discussed above.
--- NOTE | 2022-01-07 15:33 | OP ---
OPERATIVE REPORT OPERATIVE REPORT: Placement of right IJ triple-lumen catheter. PREOPERATIVE DIAGNOSIS: Acute Gram-negative sepsis, septic shock possible, hypotension, Gram-negative bacteremia. This was done on an emergency basis. Patient needed IV access. POSTOPERATIVE DIAGNOSIS: Acute Gram-negative sepsis, septic shock possible, hypotension, Gram-negative bacteremia. This was done on an emergency basis. Patient needed IV access. ANESTHESIA USED: Two mL of 1% lidocaine. PROCEDURE DESCRIPTION: The patient was placed in a Trendelenburg position. The right cervical region was prepared in a sterile fashion. Drapes were applied. The area below the posterior belly of the sternocleidomastoid was locally anesthetized with lidocaine. Then, using the posterior approach, the right internal jugular vein was easily cannulated, and a guidewire was placed. The area around the guidewire was dilated. Then a triple-lumen catheter was inserted over the guidewire, and the guidewire was removed. Good blood flow was noted in the 3 different ports. Line was secured using 3.0 silk sutures. Chest x-ray is pending. No immediate complications. MMODL / IJN: [id number] /
--- NOTE | 2022-01-07 15:39 | OP ---
OPERATIVE REPORT OPERATIVE REPORT: Placement of left radial arterial line. PREOPERATIVE DIAGNOSIS: Acute hypotension, sepsis, Gram-negative bacteremia. POSTOPERATIVE DIAGNOSIS: Acute hypotension, sepsis, Gram-negative bacteremia. ANESTHESIA USED: None deployed. PROCEDURE DESCRIPTION: The patient was placed in supine position. Left wrist was placed on a table. The wrist was prepared in a sterile fashion. Drapes were applied. Then the left radial artery was palpated, easily cannulated. A guidewire was placed. A Cook's catheter was inserted over the guidewire, and the guidewire was removed. Good blood flow and good waveform were noted. No complications. Line was secured using 3.0 silk sutures. MMODL / IJN: [id number] /
[2022-01-07] MEDS: NOREPINEPHRINE 8 MG in SODIUM CHLORIDE 0.9% 250 ML IV SCH (15:48)
[2022-01-07 18:09] LABS: Glucose,Whole Blood 200 mg/dL (75-99)
[2022-01-07 21:03] LABS: Glucose,Whole Blood 164 mg/dL (75-99)
[2022-01-07] MEDS: PIPERACILLIN-TAZOBACTAM 3.375 GM in SODIUM CHLORIDE 0.9% 100 ML IVPB SCH (21:05)
[2022-01-07] MEDS: HEPARIN SODIUM,PORCINE/PF 5,000 UNIT/0.5 ML SYRINGE SQ SCH (21:07)
--- NOTE | 2022-01-07 22:36 | P.CONS ---
History of Present Illness - Reason for Consult Consult date: 01/07/22 sepsis , bacteremia Requesting physician: Bernadette Gutiérrez - Chief Complaint abd pain x 1 day - History of Present Illness History of present illness : Patient is a 72-year-old male with a past medical history significant for coronary artery disease diabetes mellitus hypertension hyperlipidemia chronic and ongoing tobacco use history of bladder cancer this we did have a urostomy patient presented to [facility] ER yesterday evening for evaluation of abdominal pain apparently the patient has been going on for for a day or 2 before presentation to the hospital pain was throughout his abdominal with some nausea denies any diarrhea patient on presentation to the hospital did have a fever of 101.6 F the patient did have tachycardia patient did have a CT of abdominal pelvis findings suspicious for a parastomal hernia which is obstructing the patient ileal conduit post hernia containing small bowel demonstrating pneumobilia suggesting of strangulation small bowel patient was evaluated by general surgery he was taken to the OR last night patient status post expiratory laparotomy repair of the strangulated hernia resection of the small bowel with ileostomy and repair of the incisional hernia patient was on the floor hypotensive requiring fluid boluses and subsequently was transferred to the ICU patient also have a blood culture drawn which is showing a gram-negative bacilli that has prompted this infectious disease consultation patient denies having any chest pain shortness breath or cough has been complaining of abdominal pain more of a sharp in nature Ulmus 78 of did have nausea but no vomiting and did not have bowel movement Review of system: CONSTITUTIONAL: Positive for weakness along with the fever. EYES: No complaint. ENT: No complaint. RESPIRATORY: As per history of present illness. CARDIOVASCULAR: No complaint. GENITOURINARY: No complaint. GASTROINTESTINAL: As per history of present illness. MUSCULOSKELETAL: No complaint. INTEGUMENTARY: No complaint. PSYCHOLOGIC: No complaint. ENDOCRINE: No complaint. NEUROLOGIC: No complaint. Past medical history : Reviewed, documented below Past surgical history : Reviewed, documented below Social history: Reviewed, documented below Medications: Reviewed, as documented below EXAMINATION: Vital sigans= Reviewed and documented below GENERAL DESCRIPTION elderly male lying in bed, no distress. No tachypnea or accessory muscle of respiration use. HEENT: Shows Pallor , no scleral icterus. Oral mucous membrane is dry. NECK: Trachea central, no thyromegaly. LUNGS: Unlabored breathing. Decreased breath sound at the base. No wheeze or crackle. HEART: S1, S2, regular rate and rhythm. ABDOMEN: Soft, mild abdominal tenderness , no guarding or rigidity EXTREMITIES: No edema of feet. SKIN: No rash, no masses palpable. NEUROLOGICAL: The patient is awake, alert, oriented x3, mood and affect normal. LABS AND RADIOLOGY: Reviewed results see below Assessment : Patient admitted to hospital with sepsis in this patient did have a fever elevated white count tachycardia source is abdominal in this patient did have incarcerated abdominal hernia status post laparotomy repair resection of the small bowel and ileostomy now with evidence of gram-negative bacteremia likely abdominal source Plan: 1-blood cultures will be repeated document clearance of bacteremia 2-Zosyn 3.375 g every 8 8 hours to provide adequate antibiotic coverage 3-gentle IV fluid We will follow on clinical condition and cultures to further adjust medication if needed Thank you for this consultation we will follow the patient along with you Past Medical History Past Medical History: Coronary Artery Disease (CAD), Diabetes Mellitus, Eye Disorder, GERD/Reflux, Hyperlipidemia, Hypertension, Osteoarthritis (OA), Prostate Disorder Additional Past Medical History / Comment(s): ENLARGED PROSTATE, 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 Last Myocardial Infarction Date:: 2008 History of Any Multi-Drug Resistant Organisms: None Reported Past Surgical History: Heart Catheterization With Stent Additional Past Surgical History / Comment(s): EXC.CATARACT RT EYE WITH LENS IMPLANT, COLONOSCOPY 01/2015, FATTY TUMORS REMOVED FROM STOMACH Past Anesthesia/Blood Transfusion Reactions: No Reported Reaction Date of Last Stent Placement:: 2008 Past Psychological History: No Psychological Hx Reported Smoking Status: Current every day smoker Past Alcohol Use History: Rare Past Drug Use History: None Reported - Past Family History Mother Family Medical History: Cancer, Deep Vein Thrombosis (DVT), Hypertension Additional Family Medical History / Comment(s): OF BREAST CA Father Family Medical History: Cancer Additional Family Medical History / Comment(s): STOMACH CA Medications and Allergies Home Medications Medication Instructions Recorded Confirmed Type Aspirin 81 mg PO DAILY 06/20/15 01/06/22 History Atorvastatin [Lipitor] 20 mg PO DAILY 06/20/15 01/06/22 History Omeprazole [PriLOSEC] 20 mg PO DAILY 06/20/15 01/06/22 History Isosorbide Mononitrate ER [Imdur] 30 mg PO DAILY 07/14/17 01/06/22 History Cholecalciferol [Vitamin D3 (25 25 mcg PO DAILY 01/06/22 01/06/22 History Mcg = 1000 Iu)] Clopidogrel [Plavix] 75 mg PO DAILY 01/06/22 01/06/22 History Docusate [Colace] 100 mg PO DAILY 01/06/22 01/06/22 History Empagliflozin [Jardiance] 10 mg PO HS 01/06/22 01/06/22 History Insulin Aspart Protam & Aspart 20 unit SQ BID 01/06/22 01/06/22 History [NovoLOG MIX 70-30 Flexpen] Metoclopramide [Reglan] 10 mg PO TID PRN 01/06/22 01/06/22 History Montelukast [Singulair] 10 mg PO HS 01/06/22 01/06/22 History lisinopriL [Zestril] 5 mg PO DAILY 01/06/22 01/06/22 History Allergies Allergy/AdvReac Type Severity Reaction Status Date / Time No Known Allergies Allergy Verified 01/06/22 17:24 Physical Exam Vitals: Vital Signs Temp Pulse Pulse Resp BP BP Pulse Ox 01/07/22 12:02 96/54 01/07/22 11:44 90/58 01/07/22 11:29 97.6 F 119 H 28 H 78/47 97 01/07/22 11:15 97.6 F 119 H 28 H 78/47 97 01/07/22 08:00 97.5 F L 115 H 28 H 88/54 96 01/07/22 03:49 97.6 F 112 H 18 91/58 94 L 01/06/22 22:55 98.7 F 111 H 18 105/55 96 01/06/22 22:40 93 18 90/48 97 01/06/22 22:25 90 16 102/70 98 01/06/22 22:10 88 16 100/50 97 01/06/22 21:55 102 H 18 87/51 97 01/06/22 21:40 100 18 92/52 100 01/06/22 21:25 96 18 70/40 99 01/06/22 21:10 90 18 110/60 100 01/06/22 20:53 101.6 F H 89 18 95/50 97 01/06/22 18:51 100.4 F H 92 20 84/54 95 02/07/22 18:00 92 22 102/55 95 01/06/22 17:30 100.0 F H 72 20 92/54 95 01/06/22 17:00 76 18 116/68 95 01/06/22 13:27 97.7 F 77 18 133/72 96 Intake and Output 01/06/22 01/07/22 01/07/22 22:59 06:59 14:59 Intake Total 2500 Output Total 75 200 400 Balance 2425 -200 -400 Intake: IV 2500 Output: Drainage 200 Right Abdomen 200 Urine 200 200 Estimated Blood Loss 75 Other: Weight 83.915 kg 83.915 kg Results CBC & Chem 7: 01/07/22 05:20 01/07/22 11:39 Labs: Abnormal Lab Results - Last 24 Hours (Table) 01/06/22 01/06/22 01/06/22 Range/Units 16:29 16:29 22:05 WBC 12.2 H (3.8-10.6) k/uL RBC 3.34 L (4.30-5.90) m/uL Hgb 10.4 L (13.0-17.5) gm/dL Hct 32.4 L (39.0-53.0) % MCV (80.0-100.0) fL MCHC (31.0-37.0) g/dL Neutrophils # 11.3 H (1.3-7.7) k/uL Lymphocytes # 0.3 L (1.0-4.8) k/uL Lymphocytes # (Manual) (1.0-4.8) k/uL Metamyelocytes # (Man) (0) k/uL Sodium (137-145) mmol/L Potassium (3.5-5.1) mmol/L Carbon Dioxide (22-30) mmol/L BUN 47 H (9-20) mg/dL Creatinine 3.17 H (0.66-1.25) mg/dL Glucose 252 H (74-99) mg/dL POC Glucose (mg/dL) (75-99) mg/dL Plasma Lactic Acid Guero 2.2 H* (0.7-2.0) mmol/L Calcium (8.4-10.2) mg/dL Total Protein (6.3-8.2) g/dL Albumin (3.5-5.0) g/dL 01/07/22 01/07/22 01/07/22 Range/Units 01:27 05:20 05:20 WBC 2.6 L (3.8-10.6) k/uL RBC 3.69 L (4.30-5.90) m/uL Hgb 11.2 L (13.0-17.5) gm/dL Hct 37.9 L (39.0-53.0) % MCV 102.7 H D (80.0-100.0) fL MCHC 29.4 L (31.0-37.0) g/dL Neutrophils # (1.3-7.7) k/uL Lymphocytes # 0.2 L (1.0-4.8) k/uL Lymphocytes # (Manual) 0.26 L (1.0-4.8) k/uL Metamyelocytes # (Man) 0.10 H (0) k/uL Sodium 134 L (137-145) mmol/L Potassium 6.1 H* (3.5-5.1) mmol/L Carbon Dioxide 18 L (22-30) mmol/L BUN 52 H (9-20) mg/dL Creatinine 3.29 H (0.66-1.25) mg/dL Glucose 340 H (74-99) mg/dL POC Glucose (mg/dL) (75-99) mg/dL Plasma Lactic Acid Guero 2.9 H* (0.7-2.0) mmol/L Calcium (8.4-10.2) mg/dL Total Protein 5.9 L (6.3-8.2) g/dL Albumin 2.9 L (3.5-5.0) g/dL 01/07/22 01/07/22 01/07/22 Range/Units 05:20 07:07 08:49 WBC (3.8-10.6) k/uL RBC (4.30-5.90) m/uL Hgb (13.0-17.5) gm/dL Hct (39.0-53.0) % MCV (80.0-100.0) fL MCHC (31.0-37.0) g/dL Neutrophils # (1.3-7.7) k/uL Lymphocytes # (1.0-4.8) k/uL Lymphocytes # (Manual) (1.0-4.8) k/uL Metamyelocytes # (Man) (0) k/uL Sodium (137-145) mmol/L Potassium (3.5-5.1) mmol/L Carbon Dioxide (22-30) mmol/L BUN (9-20) mg/dL Creatinine (0.66-1.25) mg/dL Glucose (74-99) mg/dL POC Glucose (mg/dL) 383 H (75-99) mg/dL Plasma Lactic Acid Guero 3.5 H* 4.4 H* (0.7-2.0) mmol/L Calcium (8.4-10.2) mg/dL Total Protein (6.3-8.2) g/dL Albumin (3.5-5.0) g/dL 01/07/22 01/07/22 01/07/22 Range/Units 11:39 11:39 11:54 WBC (3.8-10.6) k/uL RBC (4.30-5.90) m/uL Hgb (13.0-17.5) gm/dL Hct (39.0-53.0) % MCV (80.0-100.0) fL MCHC (31.0-37.0) g/dL Neutrophils # (1.3-7.7) k/uL Lymphocytes # (1.0-4.8) k/uL Lymphocytes # (Manual) (1.0-4.8) k/uL Metamyelocytes # (Man) (0) k/uL Sodium 133 L (137-145) mmol/L Potassium 5.5 H (3.5-5.1) mmol/L Carbon Dioxide 17 L (22-30) mmol/L BUN 55 H (9-20) mg/dL Creatinine 3.80 H (0.66-1.25) mg/dL Glucose 305 H (74-99) mg/dL POC Glucose (mg/dL) 307 H (75-99) mg/dL Plasma Lactic Acid Guero 4.9 H* (0.7-2.0) mmol/L Calcium 8.1 L (8.4-10.2) mg/dL Total Protein (6.3-8.2) g/dL Albumin (3.5-5.0) g/dL 01/07/22 Range/Units 12:23 WBC (3.8-10.6) k/uL RBC (4.30-5.90) m/uL Hgb (13.0-17.5) gm/dL Hct (39.0-53.0) % MCV (80.0-100.0) fL MCHC (31.0-37.0) g/dL Neutrophils # (1.3-7.7) k/uL Lymphocytes # (1.0-4.8) k/uL Lymphocytes # (Manual) (1.0-4.8) k/uL Metamyelocytes # (Man) (0) k/uL Sodium (137-145) mmol/L Potassium (3.5-5.1) mmol/L Carbon Dioxide (22-30) mmol/L BUN (9-20) mg/dL Creatinine (0.66-1.25) mg/dL Glucose (74-99) mg/dL POC Glucose (mg/dL) 293 H (75-99) mg/dL Plasma Lactic Acid Guero (0.7-2.0) mmol/L Calcium (8.4-10.2) mg/dL Total Protein (6.3-8.2) g/dL Albumin (3.5-5.0) g/dL Microbiology - Last 24 Hours (Table) 01/06/22 18:30 Blood Culture - Final Blood 01/06/22 18:45 Blood Culture - Final Blood
[2022-01-07 23:43] LABS: Appearance,Urine Cloudy (Clear); Bacteria,Urine Rare /hpf; Bilirubin,Urine Negative (Negative); Blood,Urine Large (Negative); Color,Urine Yellow; Glucose,Urine (UA) 3+ (Negative); Ketones,Urine Negative (Negative); Leukocyte Esterase,Urine Large (Negative); Mucus,Urine Rare /hpf; Nitrite,Urine Negative (Negative); PH, Urine 6.5 (5.0-8.0); Protein,Urine 1+ (Negative); RBC,Urine 59 /hpf (0-5); Specific Gravity,Urine 1.011 (1.001-1.035); Squamous Epithelial Cell,Urine <1 /hpf (0-4); Urobilinogen,Urine <2.0 mg/dL (<2.0); WBC,Urine 83 /hpf (0-5)
[2022-01-08] MEDS: NOREPINEPHRINE 8 MG in SODIUM CHLORIDE 0.9% 250 ML IV SCH ×3 (01:23→16:00)
[2022-01-08] MEDS: SODIUM CHLORIDE 0.9% 1,000 ML IV SCH ×3 (01:26→09:16)
[2022-01-08] MEDS: HYDROmorphone 1 MG/ML 1 ML SYRINGE IVP PRN ×4 (03:22→20:06)
[2022-01-08 04:09] LABS: Calcium 7.6 mg/dL (8.4-10.2); Potassium 5.7 mmol/L (3.5-5.1)
[2022-01-08 04:10] LABS: HCT 31.5 % (39.0-53.0); HGB 9.8 gm/dL (13.0-17.5); Hypochromasia Slight; MCH 31.1 pg (25.0-35.0); MCHC 31.1 g/dL (31.0-37.0); MCV 100.1 fL (80.0-100.0); Macrocytosis Slight; Platelet Count 191 k/uL (150-450); RBC 3.15 m/uL (4.30-5.90); RDW 15.2 % (11.5-15.5); WBC 2.6 k/uL (3.8-10.6)
[2022-01-08 04:48] LABS: Band Neutrophils % 17 %; Basophils # (M) 0.03 k/uL (0-0.2); Dohle Bodies Present; Lymphocytes # (M) 0.42 k/uL (1.0-4.8); Metamyelocytes # (M) 0.18 k/uL (0); Metamyelocytes % 7 %; Monocytes # (M) 0.05 k/uL (0-1.0); Neutrophils % (M) 59 %; Nucleated Red Blood Cells 0 /100 WBC (0-0); Total Cells Counted 200
[2022-01-08 06:25] LABS: Glucose,Whole Blood 124 mg/dL (75-99)
[2022-01-08] MEDS: ACETAMINOPHEN IV (For NPO) 1,000 MG in EMPTY BAG 1 BAG IVPB SCH (06:37)
[2022-01-08] MEDS: INSULIN ASPART (NovoLOG) 100 UNIT/ML VIAL SQ SCH ×3 (06:39→17:03)
[2022-01-08] MEDS: INSULIN DETEMIR (LEVEMIR) 100 UNIT/ML SYR SQ SCH (06:39)
[2022-01-08] MEDS: IPRATROPIUM-ALBUTEROL 3 ML NEB INHALATION SCH ×4 (07:22→20:01)
--- NOTE | 2022-01-08 08:28 | P.CONS ---
History of Present Illness - Reason for Consult Consult date: 01/07/22 medical eval - Chief Complaint abdominal pain - History of Present Illness Xavier Langford is a 72 yo M with PMH of bladder cancer s/p cystectomy and urostomy, CAD, T2DM, who presented to the ED complaining of worsening abdominal pain and distention. CT on presentation showed large parastomal hernia obstructing his ileal conduit and concern for strangulation and possible perforation. Initial WBC 12.2. Hemoglobin 10.4. Sodium 138. Potassium 4.8. BUN 47. Creatinine 3.17. Glucose 252. Plasma lactic acid 2.2, trop negative. Pt underwent exploratory laparotomy, repair of strangulated parastomal hernia, small bowel resection with ileostomy, repair of incisional hernia. Today his labs reflect drop in WBC to 2.6, Potassium 6.1, Cr 3.8. Blood cultures preliminary revealing gram-negative bacilli. Review of Systems All systems: negative Constitutional: Reports malaise, Reports weakness, Denies chills, Denies fever Eyes: denies blurred vision, denies pain Ears, nose, mouth and throat: Denies headache, Denies sore throat Cardiovascular: Denies chest pain, Denies shortness of breath Respiratory: Denies cough Gastrointestinal: Reports abdominal pain, Reports bloating, Denies diarrhea, Denies nausea, Denies vomiting Musculoskeletal: Denies myalgias Integumentary: Denies pruritus, Denies rash Neurological: Denies numbness, Denies weakness Psychiatric: Denies anxiety, Denies depression Endocrine: Denies fatigue, Denies weight change Past Medical History Past Medical History: Coronary Artery Disease (CAD), Diabetes Mellitus, Eye Dis order, GERD/Reflux, Hyperlipidemia, Hypertension, Osteoarthritis (OA), Prostate Disorder Additional Past Medical History / Comment(s): ENLARGED PROSTATE, 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 Last Myocardial Infarction Date:: 2008 History of Any Multi-Drug Resistant Organisms: None Reported Past Surgical History: Heart Catheterization With Stent Additional Past Surgical History / Comment(s): EXC.CATARACT RT EYE WITH LENS IMPLANT, COLONOSCOPY 01/2015, FATTY TUMORS REMOVED FROM STOMACH Past Anesthesia/Blood Transfusion Reactions: No Reported Reaction Date of Last Stent Placement:: 2008 Past Psychological History: No Psychological Hx Reported Smoking Status: Current every day smoker Past Alcohol Use History: Rare Past Drug Use History: None Reported - Past Family History Mother Family Medical History: Cancer, Deep Vein Thrombosis (DVT), Hypertension Additional Family Medical History / Comment(s): OF BREAST CA Father Family Medical History: Cancer Additional Family Medical History / Comment(s): STOMACH CA Medications and Allergies Home Medications Medication Instructions Recorded Confirmed Type Aspirin 81 mg PO DAILY 06/20/15 01/06/22 History Atorvastatin [Lipitor] 20 mg PO DAILY 06/20/15 01/06/22 History Omeprazole [PriLOSEC] 20 mg PO DAILY 06/20/15 01/06/22 History Isosorbide Mononitrate ER [Imdur] 30 mg PO DAILY 07/14/17 01/06/22 History Cholecalciferol [Vitamin D3 (25 25 mcg PO DAILY 01/06/22 01/06/22 History Mcg = 1000 Iu)] Clopidogrel [Plavix] 75 mg PO DAILY 01/06/22 01/06/22 History Docusate [Colace] 100 mg PO DAILY 01/06/22 01/06/22 History Empagliflozin [Jardiance] 10 mg PO HS 01/06/22 01/06/22 History Insulin Aspart Protam & Aspart 20 unit SQ BID 01/06/22 01/06/22 History [NovoLOG MIX 70-30 Flexpen] Metoclopramide [Reglan] 10 mg PO TID PRN 01/06/22 01/06/22 History Montelukast [Singulair] 10 mg PO HS 01/06/22 01/06/22 History lisinopriL [Zestril] 5 mg PO DAILY 01/06/22 01/06/22 History Allergies Allergy/AdvReac Type Severity Reaction Status Date / Time No Known Allergies Allergy Verified 01/06/22 17:24 Physical Exam Vitals: Vital Signs Temp Pulse Pulse Resp BP BP Pulse Ox 01/07/22 23:00 129 H 26 H 96 01/07/22 22:30 122 H 21 98 01/07/22 22:00 125 H 25 H 92 L 01/07/22 21:30 126 H 24 97 01/07/22 21:00 123 H 24 106/71 98 01/07/22 20:37 112 H 01/07/22 20:30 115 H 17 106/71 100 01/07/22 20:24 115 H 01/07/22 20:00 98.8 F 120 H 32 H 105/71 97 01/07/22 19:30 120 H 30 H 105/71 94 L 01/07/22 19:00 115 H 22 96 01/07/22 18:30 113 H 18 97 01/07/22 18:00 118 H 22 96 01/07/22 17:30 118 H 13 95 01/07/22 17:00 117 H 28 H 96 01/07/22 16:53 105 H 18 01/07/22 16:39 113 H 18 01/07/22 16:30 98.5 F 117 H 31 H 98 01/07/22 16:00 112 H 26 H 89/34 01/07/22 15:30 116 H 23 89/34 99 01/07/22 15:00 118 H 26 H 99/63 92 L 01/07/22 14:30 116 H 25 H 99/63 93 L 01/07/22 14:00 118 H 28 H 113/99 93 L 01/07/22 13:30 118 H 36 H 85/57 93 L 01/07/22 13:00 118 H 27 H 89/61 93 L 01/07/22 12:30 121 H 38 H 113/68 01/07/22 12:23 123 H 24 113/68 97 01/07/22 12:02 96/54 01/07/22 11:44 90/58 01/07/22 11:29 97.6 F 119 H 28 H 78/47 97 01/07/22 11:15 97.6 F 119 H 28 H 78/47 97 01/07/22 08:00 97.5 F L 115 H 28 H 88/54 96 01/07/22 03:49 97.6 F 112 H 18 91/58 94 L Intake and Output 01/07/22 01/07/22 01/08/22 14:59 22:59 06:59 Intake Total 275 3042.268 150 Output Total 600 435 35 Balance -325 2607.268 115 Intake: IV 275 2900 150 ACETAMINOPHEN IV (For NPO 100 ) 1,000 mg In Empty Bag 1 bag @ 400 mls/hr IVPB Q6HR [facility] Rx#:[id number] Piperacillin-Tazobactam 3 50 25 .375 gm In Sodium Chloride 0.9% 100 ml @ 25 mls/hr IVPB Q12HR [facility] Rx #:[id number] Sodium Chloride 0.9% 1, 275 750 125 000 ml @ 125 mls/hr IV . Q8H [facility] Rx#:[id number] Sodium Chloride 0.9% 1, 2000 000 ml @ 999 mls/hr IV . Q1H1M [facility] Rx#:[id number] Intake, IV Titration 142.268 Amount Norepinephrine 8 mg In 142.268 Sodium Chloride 0.9% 250 ml @ 0.05 MCG/KG/MIN 8. 119 mls/hr IV .Q24H [facility] Rx#:[id number] Output: Drainage 200 Right Abdomen 200 Urine 400 435 35 Other: Weight 83.915 kg ABP, PAP, CO, CI - Last 8 Hours Arterial Blood Pressure 101/47 Arterial Blood Pressure 86/44 Arterial Blood Pressure 91/47 Arterial Blood Pressure 94/46 Arterial Blood Pressure 106/53 Arterial Blood Pressure 108/51 Arterial Blood Pressure 96/60 Arterial Blood Pressure 121/54 Arterial Blood Pressure 108/47 Arterial Blood Pressure 93/42 Arterial Blood Pressure 103/48 Arterial Blood Pressure 101/46 Arterial Blood Pressure 99/52 Arterial Blood Pressure 100/53 Arterial Blood Pressure 119/55 General: well nourished, well developed, NAD. Vitals reviewed Eyes: PERRL, EOMI, conjunctiva normal HENT: normocephalic, mucus membranes moist Neck: supple, no JVD Lungs: normal respiratory effort, no wheezes or rales CV: Regular rate and rhythm, no murmur. Peripheral pulses 2+ Abdomen: soft. generalized tenderness. RLQ ileostomy good urine output. Lymph: no cervical or axillary LAD Skin: warm and dry. Neuro: A&Ox3, normal mood and affect Results CBC & Chem 7: 01/08/22 03:25 01/08/22 03:25 Labs: Abnormal Lab Results - Last 24 Hours (Table) 01/07/22 01/07/22 01/07/22 Range/Units 01:27 05:20 05:20 WBC 2.6 L (3.8-10.6) k/uL RBC 3.69 L (4.30-5.90) m/uL Hgb 11.2 L (13.0-17.5) gm/dL Hct 37.9 L (39.0-53.0) % MCV 102.7 H D (80.0-100.0) fL MCHC 29.4 L (31.0-37.0) g/dL Lymphocytes # 0.2 L (1.0-4.8) k/uL Lymphocytes # (Manual) 0.26 L (1.0-4.8) k/uL Metamyelocytes # (Man) 0.10 H (0) k/uL Sodium 134 L (137-145) mmol/L Potassium 6.1 H* (3.5-5.1) mmol/L Carbon Dioxide 18 L (22-30) mmol/L BUN 52 H (9-20) mg/dL Creatinine 3.29 H (0.66-1.25) mg/dL Glucose 340 H (74-99) mg/dL POC Glucose (mg/dL) (75-99) mg/dL Plasma Lactic Acid Guero 2.9 H* (0.7-2.0) mmol/L Calcium (8.4-10.2) mg/dL Total Protein 5.9 L (6.3-8.2) g/dL Albumin 2.9 L (3.5-5.0) g/dL 01/07/22 01/07/22 01/07/22 Range/Units 05:20 07:07 08:49 WBC (3.8-10.6) k/uL RBC (4.30-5.90) m/uL Hgb (13.0-17.5) gm/dL Hct (39.0-53.0) % MCV (80.0-100.0) fL MCHC (31.0-37.0) g/dL Lymphocytes # (1.0-4.8) k/uL Lymphocytes # (Manual) (1.0-4.8) k/uL Metamyelocytes # (Man) (0) k/uL Sodium (137-145) mmol/L Potassium (3.5-5.1) mmol/L Carbon Dioxide (22-30) mmol/L BUN (9-20) mg/dL Creatinine (0.66-1.25) mg/dL Glucose (74-99) mg/dL POC Glucose (mg/dL) 383 H (75-99) mg/dL Plasma Lactic Acid Guero 3.5 H* 4.4 H* (0.7-2.0) mmol/L Calcium (8.4-10.2) mg/dL Total Protein (6.3-8.2) g/dL Albumin (3.5-5.0) g/dL 01/07/22 01/07/22 01/07/22 Range/Units 11:39 11:39 11:54 WBC (3.8-10.6) k/uL RBC (4.30-5.90) m/uL Hgb (13.0-17.5) gm/dL Hct (39.0-53.0) % MCV (80.0-100.0) fL MCHC (31.0-37.0) g/dL Lymphocytes # (1.0-4.8) k/uL Lymphocytes # (Manual) (1.0-4.8) k/uL Metamyelocytes # (Man) (0) k/uL Sodium 133 L (137-145) mmol/L Potassium 5.5 H (3.5-5.1) mmol/L Carbon Dioxide 17 L (22-30) mmol/L BUN 55 H (9-20) mg/dL Creatinine 3.80 H (0.66-1.25) mg/dL Glucose 305 H (74-99) mg/dL POC Glucose (mg/dL) 307 H (75-99) mg/dL Plasma Lactic Acid Guero 4.9 H* (0.7-2.0) mmol/L Calcium 8.1 L (8.4-10.2) mg/dL Total Protein (6.3-8.2) g/dL Albumin (3.5-5.0) g/dL 01/07/22 01/07/22 01/07/22 Range/Units 12:23 15:23 18:07 WBC (3.8-10.6) k/uL RBC (4.30-5.90) m/uL Hgb (13.0-17.5) gm/dL Hct (39.0-53.0) % MCV (80.0-100.0) fL MCHC (31.0-37.0) g/dL Lymphocytes # (1.0-4.8) k/uL Lymphocytes # (Manual) (1.0-4.8) k/uL Metamyelocytes # (Man) (0) k/uL Sodium (137-145) mmol/L Potassium (3.5-5.1) mmol/L Carbon Dioxide (22-30) mmol/L BUN (9-20) mg/dL Creatinine (0.66-1.25) mg/dL Glucose (74-99) mg/dL POC Glucose (mg/dL) 293 H 200 H (75-99) mg/dL Plasma Lactic Acid Guero 3.1 H* (0.7-2.0) mmol/L Calcium (8.4-10.2) mg/dL Total Protein (6.3-8.2) g/dL Albumin (3.5-5.0) g/dL 01/07/22 Range/Units 21:00 WBC (3.8-10.6) k/uL RBC (4.30-5.90) m/uL Hgb (13.0-17.5) gm/dL Hct (39.0-53.0) % MCV (80.0-100.0) fL MCHC (31.0-37.0) g/dL Lymphocytes # (1.0-4.8) k/uL Lymphocytes # (Manual) (1.0-4.8) k/uL Metamyelocytes # (Man) (0) k/uL Sodium (137-145) mmol/L Potassium (3.5-5.1) mmol/L Carbon Dioxide (22-30) mmol/L BUN (9-20) mg/dL Creatinine (0.66-1.25) mg/dL Glucose (74-99) mg/dL POC Glucose (mg/dL) 164 H (75-99) mg/dL Plasma Lactic Acid Guero (0.7-2.0) mmol/L Calcium (8.4-10.2) mg/dL Total Protein (6.3-8.2) g/dL Albumin (3.5-5.0) g/dL Microbiology - Last 24 Hours (Table) 01/07/22 18:30 Blood Culture Gram Stain - Preliminary Blood Blood Culture - Preliminary Pseudomonas aeruginosa 01/06/22 18:45 Blood Culture Gram Stain - Preliminary Blood 01/06/22 18:30 Blood Culture - Final Blood 01/06/22 18:45 Blood Culture - Final Blood Assessment and Plan Plan: 1. Septic shock; abdominal source. BC positive for pseudomonas. Continue with zosyn. Consult to ID and critical care. Transfer to ICU and pt started on levophed 2. Acute renal failure. Secondary to above. Fluid bolus and NS 3. Hyperkalemia. 10 units insulin; 50 gm D50; continue to monitor renal function. Consult Nephrology 4. Incarcerated hernia s/p colostomy creation. Good stool output today. Continue to monitor 5. T2DM. Accucheck and sliding scale insulin
[2022-01-08 08:40] LABS: ABG Base Excess -12.2 mmol/L; ABG HCO3 16 mmol/L (21-25); ABG Oxygen Saturation 93.8 % (94-97); ABG PCO2 38 mmHg (35-45); ABG PH 7.22 (7.35-7.45); ABG PO2 73 mmHg (83-108); ABG TCO2 17 mmol/L (19-24)
[2022-01-08 08:42] LABS: Allen Test Performed? NO
[2022-01-08] MEDS: PIPERACILLIN-TAZOBACTAM 3.375 GM in SODIUM CHLORIDE 0.9% 100 ML IVPB SCH ×2 (08:58→21:02)
[2022-01-08] MEDS: HEPARIN SODIUM,PORCINE/PF 5,000 UNIT/0.5 ML SYRINGE SQ SCH ×2 (08:59→21:02)
[2022-01-08] MEDS: PANTOPRAZOLE 40 MG/10 ML VIAL IVP SCH (08:59)
[2022-01-08] MEDS ORDERED: SODIUM BICARB 8.4% 50 ML SYR (1 MEQ/ML) ONE ×2 (09:01→19:01)
[2022-01-08] MEDS: DEXTROSE 5% IN WATER 1,000 ML with SODIUM BICARB (1 MEQ/ML) 150 ML IV SCH ×2 (09:15→20:37)
--- NOTE | 2022-01-08 09:42 | XR ---
EXAMINATION TYPE: XR chest 1V portable DATE OF EXAM: 01/08/2022 COMPARISON: Chest x-ray 01/07/2022 HISTORY: Sepsis and pneumonia TECHNIQUE: Single frontal view of the chest is obtained. FINDINGS: Interstitial changes in the lungs are noted peripherally similar to prior exam. No evident pneumothorax, difficult to exclude small effusion. Cardiac mediastinal silhouette is likely stable, aorta is dense. Right jugular central venous catheter is present, distal tip is likely within the rig ht atrium. There are overlying artifacts. IMPRESSION: Correlate for pneumonia versus basilar atelectasis, there is underlying interstitial yoanna g disease
--- NOTE | 2022-01-08 10:02 | P.PN ---
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 He also has a history of urostomy that was done at [facility] several years ago and previous bladder cancer. He had presented to the emergency room yesterday with complaints of abdominal painand distention. CAT scan of the abdomen revealed cyst addition for parastomal hernia which is obstructing the patient Werner conduit through the subcutaneous tissues. There is mild bilateral hydronephrosis. Parastomal hernia containing small bowel demonstrated pneumobilia suggesting strangulation small bowel with possible perforation. Subcutaneous gas which may represent superimposed infections secondary to the small bowel strangulation and possible perforation. White count 12.2. Hemoglobin 10.4. Sodium 138. Potassium 4.8. BUN 47. Creatinine 3.17. Glucose 252. Plasma lactic acid 2.2. Troponin 0.013. House virus by PCR not detected. He was taken to the operating room last evening and had undergone an exploratory laparotomy, repair of strangulated parastomal hernia, small bowel resection with ileostomy, repair of incisional hernia. Blood cultures preliminary revealing gram-negative bacilli. Lactic acid up to 4.9 today. The patient had issues with hypotension and tachycardia this morning. We're consulted for ICU management. He was transferred there per medicine. 1 L of fluid resuscitation was given. Current labs revealed WBC 2.6. Hemoglobin 11.2. Sodium 133. Potassium 5.5. Chloride 105. Bicarb 17. BUN 55. Creatinine 3.80. Glucose 305. currently on Zosyn. He is seen today in consultation. He is awake and alert. He is having some surgical site pain but denies any worsening shortness of breath. No cough or congestion. No fever. The patient is seen today 01/08/2022 in follow-up in the intensive care unit. He is currently sitting up in bed. More awake and alert today. His color is better. He did receive 4 L of fluid resuscitation yesterday. He is now requiring norepinephrine currently at 0.26 mcg/kg/m. He has 0.9% normal saline running at 125 ML's per hour. Mean arterial pressure 85 currently. He is tachycardic in the 120s. Sinus. Maintaining O2 saturation the high 90s on 2 L/m per nasal cannula. Chest x-ray continues to show interstitial changes in the lung bases. No pneumothorax. Suspect basilar atelectasis versus pneumonia and possible underlying interstitial lung disease. The patient denied having had COVID-19 infection. Blood culture is positive for pseudomonas aeruginosa. He is currently on Zosyn. White count 2.6. Hemoglobin 9.8. Sodium 138. Potassium 5.7. Bicarb 16. BUN 55. Creatinine 3.65. Glucose 140. Urinalysis with large amount of blood and high WBCs. Cultures pending. Arterial blood gases on 28% FiO2 revealed a PaO2 of 73, pCO2 38 and a pH of 7.22. He remains on DuoNeb inhalations, heparin for DVT prophylaxis, Protonix for GI prophylaxis. He remains nothing by mouth. There is minimal output of the ileostomy. Midline dressing dry and intact. Urostomy with adequate output. Currently in a 3.2 L positive balance Objective - Vital Signs Vital signs: Vital Signs Temp 98.6 F 01/08/22 04:00 Pulse 126 H 01/08/22 07:33 Resp 31 H 01/08/22 07:00 BP 117/69 01/08/22 07:00 Pulse Ox 98 01/08/22 07:22 Intake & Output 01/07/22 01/08/22 01/08/22 18:59 06:59 18:59 Intake Total 2646.516 2024.548 244.778 Output Total 745 715 230 Balance 9643.083 5105.548 14.778 Weight 83.915 kg 91.9 kg Intake: IV 2625 1575 125 ACETAMINOPHEN IV (For NPO 100 ) 1,000 mg In Empty Bag 1 bag @ 400 mls/hr IVPB Q6HR [facility] Rx#:[id number] Piperacillin-Tazobactam 3 75 .375 gm In Sodium Chloride 0.9% 100 ml @ 25 mls/hr IVPB Q12HR [facility] Rx #:[id number] Sodium Chloride 0.9% 1, 525 1500 125 000 ml @ 125 mls/hr IV . Q8H [facility] Rx#:[id number] Sodium Chloride 0.9% 1, 2000 000 ml @ 999 mls/hr IV . Q1H1M [facility] Rx#:[id number] Intake, IV Titration 21.516 449.548 119.778 Amount Norepinephrine 8 mg In 21.516 449.548 119.778 Sodium Chloride 0.9% 250 ml @ 0.05 MCG/KG/MIN 8. 119 mls/hr IV .Q24H [facility] Rx#:[id number] Output: Drainage 200 Right Abdomen 200 Urine 545 715 230 ABP, PAP, CO, CI - Last Documented Arterial Blood Pressure 105/46 - Exam GENERAL EXAM: Alert, pleasant 72-year-old gentleman, on 2 L nasal cannula, fairly comfortable in no apparent distress. HEAD: Normocephalic. EYES: Normal reaction of pupils, equal size. NOSE: Clear with pink turbinates. THROAT: No erythema or exudates. NECK: No masses, no JVD. CHEST: No chest wall deformity. LUNGS: Equal air entry with crackles in the posterior bases. CVS: S1 and S2 normal with no audible murmur, regular rhythm. ABDOMEN: Urostomy on the left, ileostomy on the right, midline dressing dry and intact. SPINE: No scoliosis or deformity SKIN: No rashes CENTRAL NERVOUS SYSTEM: No focal deficits, tone is normal in all 4 extremities. EXTREMITIES: There is no peripheral edema. No clubbing, no cyanosis. Perip heral pulses are intact. - Labs CBC & Chem 7: 01/08/22 03:25 01/08/22 03:25 Labs: Abnormal Lab Results - Last 24 Hours (Table) 01/07/22 01/07/22 01/07/22 Range/Units 05:20 11:39 11:39 WBC (3.8-10.6) k/uL RBC (4.30-5.90) m/uL Hgb (13.0-17.5) gm/dL Hct (39.0-53.0) % MCV (80.0-100.0) fL Lymphocytes # 0.2 L (1.0-4.8) k/uL Lymphocytes # (Manual) 0.26 L (1.0-4.8) k/uL Metamyelocytes # (Man) 0.10 H (0) k/uL ABG pH (7.35-7.45) ABG pO2 (83-108) mmHg ABG HCO3 (21-25) mmol/L ABG Total CO2 (19-24) mmol/L ABG O2 Saturation (94-97) % Sodium 133 L (137-145) mmol/L Potassium 5.5 H (3.5-5.1) mmol/L Chloride (98-107) mmol/L Carbon Dioxide 17 L (22-30) mmol/L BUN 55 H (9-20) mg/dL Creatinine 3.80 H (0.66-1.25) mg/dL Glucose 305 H (74-99) mg/dL POC Glucose (mg/dL) (75-99) mg/dL Plasma Lactic Acid Guero 4.9 H* (0.7-2.0) mmol/L Calcium 8.1 L (8.4-10.2) mg/dL Urine Protein (Negative) Urine Glucose (UA) (Negative) Urine Blood (Negative) Ur Leukocyte Esterase (Negative) Urine RBC (0-5) /hpf Urine WBC (0-5) /hpf Urine Bacteria (None) /hpf Urine Mucus (None) /hpf 01/07/22 01/07/22 01/07/22 Range/Units 11:54 12:23 15:23 WBC (3.8-10.6) k/uL RBC (4.30-5.90) m/uL Hgb (13.0-17.5) gm/dL Hct (39.0-53.0) % MCV (80.0-100.0) fL Lymphocytes # (1.0-4.8) k/uL Lymphocytes # (Manual) (1.0-4.8) k/uL Metamyelocytes # (Man) (0) k/uL ABG pH (7.35-7.45) ABG pO2 (83-108) mmHg ABG HCO3 (21-25) mmol/L ABG Total CO2 (19-24) mmol/L ABG O2 Saturation (94-97) % Sodium (137-145) mmol/L Potassium (3.5-5.1) mmol/L Chloride (98-107) mmol/L Carbon Dioxide (22-30) mmol/L BUN (9-20) mg/dL Creatinine (0.66-1.25) mg/dL Glucose (74-99) mg/dL POC Glucose (mg/dL) 307 H 293 H (75-99) mg/dL Plasma Lactic Acid Guero 3.1 H* (0.7-2.0) mmol/L Calcium (8.4-10.2) mg/dL Urine Protein (Negative) Urine Glucose (UA) (Negative) Urine Blood (Negative) Ur Leukocyte Esterase (Negative) Urine RBC (0-5) /hpf Urine WBC (0-5) /hpf Urine Bacteria (None) /hpf Urine Mucus (None) /hpf 01/07/22 01/07/22 01/07/22 Range/Units 18:07 21:00 23:30 WBC (3.8-10.6) k/uL RBC (4.30-5.90) m/uL Hgb (13.0-17.5) gm/dL Hct (39.0-53.0) % MCV (80.0-100.0) fL Lymphocytes # (1.0-4.8) k/uL Lymphocytes # (Manual) (1.0-4.8) k/uL Metamyelocytes # (Man) (0) k/uL ABG pH (7.35-7.45) ABG pO2 (83-108) mmHg ABG HCO3 (21-25) mmol/L ABG Total CO2 (19-24) mmol/L ABG O2 Saturation (94-97) % Sodium (137-145) mmol/L Potassium (3.5-5.1) mmol/L Chloride (98-107) mmol/L Carbon Dioxide (22-30) mmol/L BUN (9-20) mg/dL Creatinine (0.66-1.25) mg/dL Glucose (74-99) mg/dL POC Glucose (mg/dL) 200 H 164 H (75-99) mg/dL Plasma Lactic Acid Guero (0.7-2.0) mmol/L Calcium (8.4-10.2) mg/dL Urine Protein 1+ H (Negative) Urine Glucose (UA) 3+ H (Negative) Urine Blood Large H (Negative) Ur Leukocyte Esterase Large H (Negative) Urine RBC 59 H (0-5) /hpf Urine WBC 83 H (0-5) /hpf Urine Bacteria Rare H (None) /hpf Urine Mucus Rare H (None) /hpf 01/08/22 01/08/22 01/08/22 Range/Units 03:25 03:25 06:24 WBC 2.6 L (3.8-10.6) k/uL RBC 3.15 L (4.30-5.90) m/uL Hgb 9.8 L (13.0-17.5) gm/dL Hct 31.5 L (39.0-53.0) % MCV 100.1 H (80.0-100.0) fL Lymphocytes # (1.0-4.8) k/uL Lymphocytes # (Manual) 0.42 L (1.0-4.8) k/uL Metamyelocytes # (Man) 0.18 H (0) k/uL ABG pH (7.35-7.45) ABG pO2 (83-108) mmHg ABG HCO3 (21-25) mmol/L ABG Total CO2 (19-24) mmol/L ABG O2 Saturation (94-97) % Sodium (137-145) mmol/L Potassium 5.7 H (3.5-5.1) mmol/L Chloride 110 H (98-107) mmol/L Carbon Dioxide 16 L (22-30) mmol/L BUN 55 H (9-20) mg/dL Creatinine 3.65 H (0.66-1.25) mg/dL Glucose 140 H (74-99) mg/dL POC Glucose (mg/dL) 124 H (75-99) mg/dL Plasma Lactic Acid Guero (0.7-2.0) mmol/L Calcium 7.6 L (8.4-10.2) mg/dL Urine Protein (Negative) Urine Glucose (UA) (Negative) Urine Blood (Negative) Ur Leukocyte Esterase (Negative) Urine RBC (0-5) /hpf Urine WBC (0-5) /hpf Urine Bacteria (None) /hpf Urine Mucus (None) /hpf 01/08/22 Range/Units 08:38 WBC (3.8-10.6) k/uL RBC (4.30-5.90) m/uL Hgb (13.0-17.5) gm/dL Hct (39.0-53.0) % MCV (80.0-100.0) fL Lymphocytes # (1.0-4.8) k/uL Lymphocytes # (Manual) (1.0-4.8) k/uL Metamyelocytes # (Man) (0) k/uL ABG pH 7.22 L (7.35-7.45) ABG pO2 73 L (83-108) mmHg ABG HCO3 16 L (21-25) mmol/L ABG Total CO2 17 L (19-24) mmol/L ABG O2 Saturation 93.8 L (94-97) % Sodium (137-145) mmol/L Potassium (3.5-5.1) mmol/L Chloride (98-107) mmol/L Carbon Dioxide (22-30) mmol/L BUN (9-20) mg/dL Creatinine (0.66-1.25) mg/dL Glucose (74-99) mg/dL POC Glucose (mg/dL) (75-99) mg/dL Plasma Lactic Acid Guero (0.7-2.0) mmol/L Calcium (8.4-10.2) mg/dL Urine Protein (Negative) Urine Glucose (UA) (Negative) Urine Blood (Negative) Ur Leukocyte Esterase (Negative) Urine RBC (0-5) /hpf Urine WBC (0-5) /hpf Urine Bacteria (None) /hpf Urine Mucus (None) /hpf Microbiology - Last 24 Hours (Table) 01/07/22 18:30 Blood Culture Gram Stain - Preliminary Blood Blood Culture - Preliminary Pseudomonas aeruginosa 01/06/22 18:45 Blood Culture Gram Stain - Preliminary Blood 01/06/22 18:30 Blood Culture - Final Blood 01/06/22 18:45 Blood Culture - Final Blood Assessment and Plan Assessment: 1 Acute abdominal pain secondary to parastomal hernia containing small bowel demonstrating pneumobilia suggesting strangulation small bowel with possible p erforation. Subcutaneous gas which may represent superimposed infection. No organizing fluid collection of the time to suggest abscess. Status post exploratory laparotomy, repair of strangulated parastomal hernia, small bowel resection with ileostomy, repair of incisional hernia performed on 01/06/2022. This is postoperative day #2. 2 Sepsis with bacteremia secondary to pseudomonas aeruginosa, urine culture pending 3 Hypotension secondary to above, requiring norepinephrine 4 Lactic acidosis secondary to above, currently 3.1 5 Acute renal failure, current creatinine 3.65 6 Hyperkalemia secondary to above, current potassium 5.7 7 History of bladder cancer with previous urostomy. 8 Diabetes mellitus with subsequent hyperglycemia 9 Hyperlipidemia 10 BPH 11 Visual disorder 12 Coronary artery disease with previous stent placement 13 Chronic tobacco dependence Plan: The patient was seen and evaluated Chest x-ray, ABGs and labs reviewed Received adequate fluid resuscitation Currently requiring pressors, titrate to mean arterial pressure 60-65 Triple-lumen catheter and arterial line placed yesterday Blood culture noted, urine culture pending Decrease 0.9 normal saline to 50 mL per hour Given 1 amp of bicarb IVP Initiated bicarb drip with 3 A at 50 MLS per hour Correct electrolyte imbalances Currently on Zosyn, ID is consulted Continue work with the incentive spirometer Titrate the FiO2 as tolerated Nutritional support per surgical services We will continue to follow and make further recommendations based on his clinical status I, the cosigning physician, performed a history & physical examination of the patient. Lungs sounds with crackles in the posterior bases. Maintaining good O2 saturations in the 90s on 2 L/m per nasal cannular. I discussed the assessment and plan of care with my nurse practitioner, Cony Siegel. I attest to the above note as dictated by her.
--- NOTE | 2022-01-08 10:12 | P.PN ---
Subjective Progress Note Date: 01/08/22 The patient had an incarcerated parastomal hernia created previously for a cystectomy did an emergency exploration and resection of necrotic bowel an and ileostomy. The ileal loops was dusky appears to be doing much better. I suspect the mucosa sloughing is about 50% of it is pink this voiding. There is urine output from the stoma. I don't think anything urologic will need to be done. Objective - Vital Signs Vital signs: Vital Signs Temp 98.6 F 01/08/22 04:00 Pulse 126 H 01/08/22 07:33 Resp 31 H 01/08/22 07:00 BP 117/69 01/08/22 07:00 Pulse Ox 98 01/08/22 07:22 Intake & Output 01/07/22 01/08/22 01/08/22 18:59 06:59 18:59 Intake Total 2646.516 2024.548 244.778 Output Total 745 715 230 Balance 0933.300 9865.548 14.778 Weight 83.915 kg 91.9 kg Intake: IV 2625 1575 125 ACETAMINOPHEN IV (For NPO 100 ) 1,000 mg In Empty Bag 1 bag @ 400 mls/hr IVPB Q6HR [facility] Rx#:[id number] Piperacillin-Tazobactam 3 75 .375 gm In Sodium Chloride 0.9% 100 ml @ 25 mls/hr IVPB Q12HR [facility] Rx #:[id number] Sodium Chloride 0.9% 1, 525 1500 125 000 ml @ 125 mls/hr IV . Q8H [facility] Rx#:[id number] Sodium Chloride 0.9% 1, 2000 000 ml @ 999 mls/hr IV . Q1H1M [facility] Rx#:[id number] Intake, IV Titration 21.516 449.548 119.778 Amount Norepinephrine 8 mg In 21.516 449.548 119.778 Sodium Chloride 0.9% 250 ml @ 0.05 MCG/KG/MIN 8. 119 mls/hr IV .Q24H [facility] Rx#:[id number] Output: Drainage 200 Right Abdomen 200 Urine 545 715 230 ABP, PAP, CO, CI - Last Documented Arterial Blood Pressure 105/46 - Labs CBC & Chem 7: 01/08/22 03:25 01/08/22 03:25 Labs: Abnormal Lab Results - Last 24 Hours (Table) 01/07/22 01/07/22 01/07/22 Range/Units 05:20 11:39 11:39 WBC (3.8-10.6) k/uL RBC (4.30-5.90) m/uL Hgb (13.0-17.5) gm/dL Hct (39.0-53.0) % MCV (80.0-100.0) fL Lymphocytes # 0.2 L (1.0-4.8) k/uL Lymphocytes # (Manual) 0.26 L (1.0-4.8) k/uL Metamyelocytes # (Man) 0.10 H (0) k/uL ABG pH (7.35-7.45) ABG pO2 (83-108) mmHg ABG HCO3 (21-25) mmol/L ABG Total CO2 (19-24) mmol/L ABG O2 Saturation (94-97) % Sodium 133 L (137-145) mmol/L Potassium 5.5 H (3.5-5.1) mmol/L Chloride (98-107) mmol/L Carbon Dioxide 17 L (22-30) mmol/L BUN 55 H (9-20) mg/dL Creatinine 3.80 H (0.66-1.25) mg/dL Glucose 305 H (74-99) mg/dL POC Glucose (mg/dL) (75-99) mg/dL Plasma Lactic Acid Guero 4.9 H* (0.7-2.0) mmol/L Calcium 8.1 L (8.4-10.2) mg/dL Urine Protein (Negative) Urine Glucose (UA) (Negative) Urine Blood (Negative) Ur Leukocyte Esterase (Negative) Urine RBC (0-5) /hpf Urine WBC (0-5) /hpf Urine Bacteria (None) /hpf Urine Mucus (None) /hpf 01/07/22 01/07/22 01/07/22 Range/Units 11:54 12:23 15:23 WBC (3.8-10.6) k/uL RBC (4.30-5.90) m/uL Hgb (13.0-17.5) gm/dL Hct (39.0-53.0) % MCV (80.0-100.0) fL Lymphocytes # (1.0-4.8) k/uL Lymphocytes # (Manual) (1.0-4.8) k/uL Metamyelocytes # (Man) (0) k/uL ABG pH (7.35-7.45) ABG pO2 (83-108) mmHg ABG HCO3 (21-25) mmol/L ABG Total CO2 (19-24) mmol/L ABG O2 Saturation (94-97) % Sodium (137-145) mmol/L Potassium (3.5-5.1) mmol/L Chloride (98-107) mmol/L Carbon Dioxide (22-30) mmol/L BUN (9-20) mg/dL Creatinine (0.66-1.25) mg/dL Glucose (74-99) mg/dL POC Glucose (mg/dL) 307 H 293 H (75-99) mg/dL Plasma Lactic Acid Guero 3.1 H* (0.7-2.0) mmol/L Calcium (8.4-10.2) mg/dL Urine Protein (Negative) Urine Glucose (UA) (Negative) Urine Blood (Negative) Ur Leukocyte Esterase (Negative) Urine RBC (0-5) /hpf Urine WBC (0-5) /hpf Urine Bacteria (None) /hpf Urine Mucus (None) /hpf 01/07/22 01/07/22 01/07/22 Range/Units 18:07 21:00 23:30 WBC (3.8-10.6) k/uL RBC (4.30-5.90) m/uL Hgb (13.0-17.5) gm/dL Hct (39.0-53.0) % MCV (80.0-100.0) fL Lymphocytes # (1.0-4.8) k/uL Lymphocytes # (Manual) (1.0-4.8) k/uL Metamyelocytes # (Man) (0) k/uL ABG pH (7.35-7.45) ABG pO2 (83-108) mmHg ABG HCO3 (21-25) mmol/L ABG Total CO2 (19-24) mmol/L ABG O2 Saturation (94-97) % Sodium (137-145) mmol/L Potassium (3.5-5.1) mmol/L Chloride (98-107) mmol/L Carbon Dioxide (22-30) mmol/L BUN (9-20) mg/dL Creatinine (0.66-1.25) mg/dL Glucose (74-99) mg/dL POC Glucose (mg/dL) 200 H 164 H (75-99) mg/dL Plasma Lactic Acid Guero (0.7-2.0) mmol/L Calcium (8.4-10.2) mg/dL Urine Protein 1+ H (Negative) Urine Glucose (UA) 3+ H (Negative) Urine Blood Large H (Negative) Ur Leukocyte Esterase Large H (Negative) Urine RBC 59 H (0-5) /hpf Urine WBC 83 H (0-5) /hpf Urine Bacteria Rare H (None) /hpf Urine Mucus Rare H (None) /hpf 01/08/22 01/08/22 01/08/22 Range/Units 03:25 03:25 06:24 WBC 2.6 L (3.8-10.6) k/uL RBC 3.15 L (4.30-5.90) m/uL Hgb 9.8 L (13.0-17.5) gm/dL Hct 31.5 L (39.0-53.0) % MCV 100.1 H (80.0-100.0) fL Lymphocytes # (1.0-4.8) k/uL Lymphocytes # (Manual) 0.42 L (1.0-4.8) k/uL Metamyelocytes # (Man) 0.18 H (0) k/uL ABG pH (7.35-7.45) ABG pO2 (83-108) mmHg ABG HCO3 (21-25) mmol/L ABG Total CO2 (19-24) mmol/L ABG O2 Saturation (94-97) % Sodium (137-145) mmol/L Potassium 5.7 H (3.5-5.1) mmol/L Chloride 110 H (98-107) mmol/L Carbon Dioxide 16 L (22-30) mmol/L BUN 55 H (9-20) mg/dL Creatinine 3.65 H (0.66-1.25) mg/dL Glucose 140 H (74-99) mg/dL POC Glucose (mg/dL) 124 H (75-99) mg/dL Plasma Lactic Acid Guero (0.7-2.0) mmol/L Calcium 7.6 L (8.4-10.2) mg/dL Urine Protein (Negative) Urine Glucose (UA) (Negative) Urine Blood (Negative) Ur Leukocyte Esterase (Negative) Urine RBC (0-5) /hpf Urine WBC (0-5) /hpf Urine Bacteria (None) /hpf Urine Mucus (None) /hpf 01/08/22 Range/Units 08:38 WBC (3.8-10.6) k/uL RBC (4.30-5.90) m/uL Hgb (13.0-17.5) gm/dL Hct (39.0-53.0) % MCV (80.0-100.0) fL Lymphocytes # (1.0-4.8) k/uL Lymphocytes # (Manual) (1.0-4.8) k/uL Metamyelocytes # (Man) (0) k/uL ABG pH 7.22 L (7.35-7.45) ABG pO2 73 L (83-108) mmHg ABG HCO3 16 L (21-25) mmol/L ABG Total CO2 17 L (19-24) mmol/L ABG O2 Saturation 93.8 L (94-97) % Sodium (137-145) mmol/L Potassium (3.5-5.1) mmol/L Chloride (98-107) mmol/L Carbon Dioxide (22-30) mmol/L BUN (9-20) mg/dL Creatinine (0.66-1.25) mg/dL Glucose (74-99) mg/dL POC Glucose (mg/dL) (75-99) mg/dL Plasma Lactic Acid Guero (0.7-2.0) mmol/L Calcium (8.4-10.2) mg/dL Urine Protein (Negative) Urine Glucose (UA) (Negative) Urine Blood (Negative) Ur Leukocyte Esterase (Negative) Urine RBC (0-5) /hpf Urine WBC (0-5) /hpf Urine Bacteria (None) /hpf Urine Mucus (None) /hpf Microbiology - Last 24 Hours (Table) 01/07/22 23:30 Urine Culture - Preliminary Urine,Voided 01/07/22 18:30 Blood Culture Gram Stain - Preliminary Blood Blood Culture - Preliminary Pseudomonas aeruginosa 01/06/22 18:45 Blood Culture Gram Stain - Preliminary Blood 01/06/22 18:30 Blood Culture - Final Blood 01/06/22 18:45 Blood Culture - Final Blood
--- NOTE | 2022-01-08 11:31 | P.NPCON ---
History of Present Illness - Reason for Consult acute renal failure - History of Present Illness Patient is a 72-year-old male with previous history of bladder cancer status post cystectomy and ileal loop urostomy. 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 CT of the abdomen on initial admission showed parastomal hernia with obstruction and subcutaneous gas there was mild bilateral hydronephrosis and hydroureter noted. He has an ileal loop urostomy and urology is also on the case at this time(being monitored. He has had good urinary output from the urostomy. Patient had been hypotensive requiring pressors. Serum creatinine was 3.1 on initial admission and increased to 3.8 yesterday. Today it is down to 3.6 mg/dL. Previous creatinine was 0.7 in 2014. Urine output 80-100 mL an hour. 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 Last Myocardial Infarction Date:: 2008 History of Any Multi-Drug Resistant Organisms: None Reported Past Surgical History: Heart Catheterization With Stent Additional Past Surgical History / Comment(s): EXC.CATARACT RT EYE WITH LENS IMPLANT, COLONOSCOPY 01/2015, FATTY TUMORS REMOVED FROM STOMACH Past Anesthesia/Blood Transfusion Reactions: No Reported Reaction Date of Last Stent Placement:: 2008 Past Psychological History: No Psychological Hx Reported Smoking Status: Current every day smoker Past Alcohol Use History: Rare Past Drug Use History: None Reported - Past Family History Mother Family Medical History: Cancer, Deep Vein Thrombosis (DVT), Hypertension Additional Family Medical History / Comment(s): OF BREAST CA Father Family Medical History: Cancer Additional Family Medical History / Comment(s): STOMACH CA Medications and Allergies Home Medications Medication Instructions Recorded Confirmed Type Aspirin 81 mg PO DAILY 06/20/15 01/06/22 History Atorvastatin [Lipitor] 20 mg PO DAILY 06/20/15 01/06/22 History Omeprazole [PriLOSEC] 20 mg PO DAILY 06/20/15 01/06/22 History Isosorbide Mononitrate ER [Imdur] 30 mg PO DAILY 07/14/17 01/06/22 History Cholecalciferol [Vitamin D3 (25 25 mcg PO DAILY 01/06/22 01/06/22 History Mcg = 1000 Iu)] Clopidogrel [Plavix] 75 mg PO DAILY 01/06/22 01/06/22 History Docusate [Colace] 100 mg PO DAILY 01/06/22 01/06/22 History Empagliflozin [Jardiance] 10 mg PO HS 01/06/22 01/06/22 History Insulin Aspart Protam & Aspart 20 unit SQ BID 01/06/22 01/06/22 History [NovoLOG MIX 70-30 Flexpen] Metoclopramide [Reglan] 10 mg PO TID PRN 01/06/22 01/06/22 History Montelukast [Singulair] 10 mg PO HS 01/06/22 01/06/22 History lisinopriL [Zestril] 5 mg PO DAILY 01/06/22 01/06/22 History Allergies Allergy/AdvReac Type Severity Reaction Status Date / Time No Known Allergies Allergy Verified 01/06/22 17:24 Physical Exam Vitals: Vital Signs Temp Pulse Pulse Resp BP BP Pulse Ox 01/08/22 11:10 126 H 01/08/22 10:59 125 H 01/08/22 10:00 125 H 32 H 113/63 99 01/08/22 09:30 126 H 24 99 01/08/22 09:00 128 H 35 H 120/64 97 01/08/22 08:30 131 H 28 H 97 01/08/22 08:00 128 H 30 H 110/72 98 01/08/22 07:33 126 H 01/08/22 07:30 122 H 30 H 97 01/08/22 07:22 125 H 98 01/08/22 07:00 122 H 31 H 117/69 99 01/08/22 06:30 124 H 22 98 01/08/22 06:00 128 H 31 H 108/67 97 01/08/22 05:30 126 H 19 96 01/08/22 05:00 120 H 21 98 01/08/22 04:30 121 H 19 99/60 98 01/08/22 04:00 98.6 F 121 H 23 98/64 97 01/08/22 03:30 123 H 22 98 01/08/22 03:00 126 H 31 H 123/73 98 01/08/22 02:30 124 H 30 H 97 01/08/22 02:00 125 H 33 H 99/54 96 01/08/22 01:30 122 H 28 H 99/54 98 01/08/22 01:00 121 H 24 113/61 99 01/08/22 00:30 122 H 24 99 01/08/22 00:00 97.5 F L 121 H 20 112/57 99 01/07/22 23:30 121 H 22 100 01/07/22 23:16 122 H 19 99 01/07/22 23:00 129 H 26 H 96 01/07/22 22:30 122 H 21 98 01/07/22 22:00 125 H 25 H 92 L 01/07/22 21:30 126 H 24 97 01/07/22 21:00 123 H 24 106/71 98 01/07/22 20:37 112 H 01/07/22 20:30 115 H 17 106/71 100 01/07/22 20:24 115 H 01/07/22 20:00 98.8 F 120 H 32 H 105/71 97 01/07/22 19:30 120 H 30 H 105/71 94 L 01/07/22 19:00 115 H 22 96 01/07/22 18:30 113 H 18 97 01/07/22 18:00 118 H 22 96 01/07/22 17:30 118 H 13 95 01/07/22 17:00 117 H 28 H 96 01/07/22 16:53 105 H 18 01/07/22 16:39 113 H 18 01/07/22 16:30 98.5 F 117 H 31 H 98 01/07/22 16:00 112 H 26 H 89/34 01/07/22 15:30 116 H 23 89/34 99 01/07/22 15:00 118 H 26 H 99/63 92 L 01/07/22 14:30 116 H 25 H 99/63 93 L 01/07/22 14:00 118 H 28 H 113/99 93 L 01/07/22 13:30 118 H 36 H 85/57 93 L 01/07/22 13:00 118 H 27 H 89/61 93 L 01/07/22 12:30 121 H 38 H 113/68 01/07/22 12:23 123 H 24 113/68 97 01/07/22 12:02 96/54 01/07/22 11:44 90/58 01/07/22 11:29 97.6 F 119 H 28 H 78/47 97 Intake and Output 01/07/22 01/08/22 01/08/22 22:59 06:59 14:59 Intake Total 3042.268 1353.796 305.236 Output Total 435 425 355 Balance 2607.268 928.796 -49.764 Intake: IV 2900 1025 125 ACETAMINOPHEN IV (For NPO 100 ) 1,000 mg In Empty Bag 1 bag @ 400 mls/hr IVPB Q6HR [facility] Rx#:[id number] Piperacillin-Tazobactam 3 50 25 .375 gm In Sodium Chloride 0.9% 100 ml @ 25 mls/hr IVPB Q12HR [facility] Rx #:[id number] Sodium Chloride 0.9% 1, 750 1000 125 000 ml @ 125 mls/hr IV . Q8H [facility] Rx#:[id number] Sodium Chloride 0.9% 1, 2000 000 ml @ 999 mls/hr IV . Q1H1M [facility] Rx#:[id number] Intake, IV Titration 142.268 328.796 180.236 Amount Norepinephrine 8 mg In 142.268 328.796 180.236 Sodium Chloride 0.9% 250 ml @ 0.05 MCG/KG/MIN 8. 119 mls/hr IV .Q24H [facility] Rx#:[id number] Output: Urine 435 425 355 Other: Weight 91.9 kg ABP, PAP, CO, CI - Last 8 Hours Arterial Blood Pressure 106/48 Arterial Blood Pressure 114/49 Arterial Blood Pressure 125/54 Arterial Blood Pressure 121/52 Arterial Blood Pressure 114/49 Arterial Blood Pressure 115/49 Arterial Blood Pressure 105/46 Arterial Blood Pressure 106/47 Arterial Blood Pressure 120/50 Arterial Blood Pressure 124/51 Arterial Blood Pressure 96/44 Arterial Blood Pressure 88/42 Arterial Blood Pressure 86/41 Arterial Blood Pressure 91/42 Patient is currently awake. He is comfortable. Not in any acute distress. Examination of the heart S1 and S2 Examination lungs bilateral breath sounds are heard Abdomen is soft with ileostomy and urostomy Examination lower extremities shows no evidence of edema TECHNICAL OPERATOR exam grossly intact Results - Lab Results Most recent lab results ABG pH 7.22 (7.35-7.45) L 01/08/22 08:38 ABG pCO2 38 mmHg (35-45) 01/08/22 08:38 ABG pO2 73 mmHg (83-108) L 01/08/22 08:38 ABG HCO3 16 mmol/L (21-25) L 01/08/22 08:38 ABG O2 Saturation 93.8 % (94-97) L 01/08/22 08:38 Calcium 7.6 mg/dL (8.4-10.2) L 01/08/22 03:25 01/08/22 03:25 01/08/22 03:25 Assessment and Plan Assessment: 1. Acute kidney injury, ATN nonoliguric secondary to hypotension and sepsis as well as an obstructive, component. Currently urine output is good urine ostomy seems to be working fairly well. Continue with IV fluids 2. Incarcerated parastomal hernia and necrotic bowel status post emergency resection of the bowel with ileostomy and repair of strangulated parastomal hernia. 3. Hypotension from sepsis maintained on antibiotics and pressors. 4. History of bladder cancer status post cystectomy and ileal loop urostomy 5. Hyperkalemia associated with acute kidney injury and metabolic acidosis 6. Metabolic acidosis associated with acute kidney injury and hypotension, maintained on bicarb drip 7. Pseudomonas bacteremia, urine culture currently pending UA suggestive of urinary tract infection. Plan: Increase bicarb drip 200 mL an hour. Can DC normal saline. Continue to wean off pressors. Repeat labs in a.m. Avoid any nephrotoxic agents Repeat imaging studies if renal function does not improve further.
[2022-01-08 11:37] LABS: Glucose,Whole Blood 129 mg/dL (75-99)
--- NOTE | 2022-01-08 14:07 | P.PN ---
Subjective Progress Note Date: 01/08/22 CHIEF COMPLAINT: Strangulated parastomal hernia HISTORY OF PRESENT ILLNESS: Patient is status post Exploratory laparotomy, Repair of strangulated parastomal hernia, Small bowel resection with ileostomy and Repair of incisional hernia. POD #2. Patient transiently ICU yesterday due to possible sepsis with hypotension and tachycardic. Patient sitting up in bed. He is requiring Levophed but less than yesterday. Nephrology has evaluated patient and add sodium bicarb drip. Patient denies any nausea or vomiting. No output through his ostomy at this time. Patient's urostomy bag shows clearing of the urine. His stoma is less dusky and showing improvement. Patient does report abdominal pain. Pain is controlled. Afebrile. Tachycardic. BP 99/44 WBC 2.6 hemoglobin down from 11.2-9.8 sodium 138 potassium 5.7 CO2 16 creatinine 3.65 Patient seen and examined with Dr. allen PHYSICAL EXAM: VITAL SIGNS: Reviewed. GENERAL: Well-developed in no acute distress. HEENT: No sclera icterus. Extraocular movements grossly intact. Moist buccal mucosa. Head is atraumatic, normocephalic. ABDOMEN: Soft. Nondistended. Incisional dressing small area of blood saturation at the distal aspect. Ileostomy home pink. No stool present or air. Urostomy's stoma less dusky. Urine is clearing. NEUROLOGIC: Alert and oriented. Cranial nerves II through XII grossly intact. ASSESSMENT: 1. Strangulated parastomal hernia and incisional hernia status post Exploratory laparotomy, Repair of strangulated parastomal hernia, Small bowel resection with ileostomy and Repair of incisional hernia 2. History of bladder cancer with urostomy 3. Hyperkalemia 4. Acute kidney injury 5. Sepsis and bacteremia with Pseudomonas PLAN: -Continue ICU management -Continue supportive care -Keep patient nothing by mouth except ice chips -Continue pain medication as needed -DVT prophylaxis subcu heparin and GI prophylaxis Protonix Physician Project Manager Finance note has been reviewed by physician. Signing provider agrees with the documented findings, assessment, and plan of care. Objective - Vital Signs Vital signs: Vital Signs Temp 99.4 F 01/08/22 12:00 Pulse 119 H 01/08/22 12:00 Resp 31 H 01/08/22 12:00 BP 112/65 01/08/22 12:00 Pulse Ox 99 01/08/22 12:00 Intake & Output 01/07/22 01/08/22 01/08/22 18:59 06:59 18:59 Intake Total 2646.516 2024.548 734.030 Output Total 745 715 505 Balance 3588.146 1139.548 229.030 Weight 83.915 kg 91.9 kg Intake: IV 2625 1575 525 ACETAMINOPHEN IV (For NPO 100 ) 1,000 mg In Empty Bag 1 bag @ 400 mls/hr IVPB Q6HR [facility] Rx#:[id number] Dextrose 5% in Water 1, 300 000 ml @ 100 mls/hr IV . [id number] [facility] with Sodium Bicarb (1 Meq/ml) 150 ml Rx#:[id number] Piperacillin-Tazobactam 3 75 100 .375 gm In Sodium Chloride 0.9% 100 ml @ 25 mls/hr IVPB Q12HR [facility] Rx #:[id number] Sodium Chloride 0.9% 1, 525 1500 125 000 ml @ 125 mls/hr IV . Q8H [facility] Rx#:[id number] Sodium Chloride 0.9% 1, 2000 000 ml @ 999 mls/hr IV . Q1H1M [facility] Rx#:[id number] Intake, IV Titration 21.516 449.548 209.030 Amount Norepinephrine 8 mg In 21.516 449.548 209.030 Sodium Chloride 0.9% 250 ml @ 0.05 MCG/KG/MIN 8. 119 mls/hr IV .Q24H [facility] Rx#:[id number] Output: Drainage 200 Right Abdomen 200 Urine 545 715 505 ABP, PAP, CO, CI - Last Documented Arterial Blood Pressure 99/44 - Labs CBC & Chem 7: 01/08/22 03:25 01/08/22 03:25 Labs: Abnormal Lab Results - Last 24 Hours (Table) 01/07/22 01/07/22 01/07/22 Range/Units 15:23 18:07 21:00 WBC (3.8-10.6) k/uL RBC (4.30-5.90) m/uL Hgb (13.0-17.5) gm/dL Hct (39.0-53.0) % MCV (80.0-100.0) fL Lymphocytes # (Manual) (1.0-4.8) k/uL Metamyelocytes # (Man) (0) k/uL ABG pH (7.35-7.45) ABG pO2 (83-108) mmHg ABG HCO3 (21-25) mmol/L ABG Total CO2 (19-24) mmol/L ABG O2 Saturation (94-97) % Potassium (3.5-5.1) mmol/L Chloride (98-107) mmol/L Carbon Dioxide (22-30) mmol/L BUN (9-20) mg/dL Creatinine (0.66-1.25) mg/dL Glucose (74-99) mg/dL POC Glucose (mg/dL) 200 H 164 H (75-99) mg/dL Plasma Lactic Acid Guero 3.1 H* (0.7-2.0) mmol/L Calcium (8.4-10.2) mg/dL Urine Protein (Negative) Urine Glucose (UA) (Negative) Urine Blood (Negative) Ur Leukocyte Esterase (Negative) Urine RBC (0-5) /hpf Urine WBC (0-5) /hpf Urine Bacteria (None) /hpf Urine Mucus (None) /hpf 01/07/22 01/08/22 01/08/22 Range/Units 23:30 03:25 03:25 WBC 2.6 L (3.8-10.6) k/uL RBC 3.15 L (4.30-5.90) m/uL Hgb 9.8 L (13.0-17.5) gm/dL Hct 31.5 L (39.0-53.0) % MCV 100.1 H (80.0-100.0) fL Lymphocytes # (Manual) 0.42 L (1.0-4.8) k/uL Metamyelocytes # (Man) 0.18 H (0) k/uL ABG pH (7.35-7.45) ABG pO2 (83-108) mmHg ABG HCO3 (21-25) mmol/L ABG Total CO2 (19-24) mmol/L ABG O2 Saturation (94-97) % Potassium 5.7 H (3.5-5.1) mmol/L Chloride 110 H (98-107) mmol/L Carbon Dioxide 16 L (22-30) mmol/L BUN 55 H (9-20) mg/dL Creatinine 3.65 H (0.66-1.25) mg/dL Glucose 140 H (74-99) mg/dL POC Glucose (mg/dL) (75-99) mg/dL Plasma Lactic Acid Guero (0.7-2.0) mmol/L Calcium 7.6 L (8.4-10.2) mg/dL Urine Protein 1+ H (Negative) Urine Glucose (UA) 3+ H (Negative) Urine Blood Large H (Negative) Ur Leukocyte Esterase Large H (Negative) Urine RBC 59 H (0-5) /hpf Urine WBC 83 H (0-5) /hpf Urine Bacteria Rare H (None) /hpf Urine Mucus Rare H (None) /hpf 01/08/22 01/08/22 01/08/22 Range/Units 06:24 08:38 11:36 WBC (3.8-10.6) k/uL RBC (4.30-5.90) m/uL Hgb (13.0-17.5) gm/dL Hct (39.0-53.0) % MCV (80.0-100.0) fL Lymphocytes # (Manual) (1.0-4.8) k/uL Metamyelocytes # (Man) (0) k/uL ABG pH 7.22 L (7.35-7.45) ABG pO2 73 L (83-108) mmHg ABG HCO3 16 L (21-25) mmol/L ABG Total CO2 17 L (19-24) mmol/L ABG O2 Saturation 93.8 L (94-97) % Potassium (3.5-5.1) mmol/L Chloride (98-107) mmol/L Carbon Dioxide (22-30) mmol/L BUN (9-20) mg/dL Creatinine (0.66-1.25) mg/dL Glucose (74-99) mg/dL POC Glucose (mg/dL) 124 H 129 H (75-99) mg/dL Plasma Lactic Acid Guero (0.7-2.0) mmol/L Calcium (8.4-10.2) mg/dL Urine Protein (Negative) Urine Glucose (UA) (Negative) Urine Blood (Negative) Ur Leukocyte Esterase (Negative) Urine RBC (0-5) /hpf Urine WBC (0-5) /hpf Urine Bacteria (None) /hpf Urine Mucus (None) /hpf Microbiology - Last 24 Hours (Table) 01/06/22 18:45 Blood Culture Gram Stain - Preliminary Blood Blood Culture - Preliminary Gram Neg Bacilli 01/07/22 18:30 Blood Culture Gram Stain - Preliminary Blood Blood Culture - Preliminary Pseudomonas aeruginosa 01/07/22 23:30 Urine Culture - Preliminary Urine,Voided 01/06/22 18:30 Blood Culture - Final Blood 01/06/22 18:45 Blood Culture - Final Blood
[2022-01-08 17:01] LABS: Glucose,Whole Blood 180 mg/dL (75-99)
[2022-01-08] MEDS ORDERED: AMIODARONE 360 MG in DEXTROSE 5% IN WATER 200 ML IV ONE ×2 (17:47)
[2022-01-08] MEDS ORDERED: DEXTROSE 5% IN WATER 100 ML with AMIODARONE 150 MG IV ONE (17:47)
--- NOTE | 2022-01-08 17:49 | P.PN ---
Subjective Progress Note Date: 01/08/22 Xavier Langford is a 72 yo M with PMH of bladder cancer s/p cystectomy and urostomy, CAD, T2DM, who presented to the ED complaining of worsening abdominal pain and distention. CT on presentation showed large parastomal hernia obstructing his ileal conduit and concern for strangulation and possible perforation. Initial WBC 12.2. Hemoglobin 10.4. Sodium 138. Potassium 4.8. BUN 47. Creatinine 3.17. Glucose 252. Plasma lactic acid 2.2, trop negative. Pt underwent exploratory laparotomy, repair of strangulated parastomal hernia, small bowel resection with ileostomy, repair of incisional hernia. Today his labs reflect drop in WBC to 2.6, Potassium 6.1, Cr 3.8. Blood cultures preliminary revealing gram-negative bacilli. 01/08/22 Tachycardic, heart rates in the 120s to 130s, tachypneic.Maintained on Zo syn, blood culture reporting pseudomonas aeruginosa . Urine culture pending. Currently afebrile. Maintaining O2 sats in the high 90s on 2 L nasal cannula.Maintained on IV fluid hydration, and Levophed. Good urine output. Creatinine decreased to 3.65. ABGs reflecting metabolic acidosis, bicarb drip initiated. Complains of abdominal pain, greater on the right. Blood sugars controlled on low-dose Levemir. Objective - Vital Signs Vital signs: Vital Signs Temp 99.4 F 01/08/22 12:00 Pulse 129 H 01/08/22 15:54 Resp 21 01/08/22 14:00 BP 100/62 01/08/22 14:00 Pulse Ox 98 01/08/22 14:00 Intake & Output 01/07/22 01/08/22 01/08/22 18:59 06:59 18:59 Intake Total 2646.516 2024.548 1005.516 Output Total 745 715 605 Balance 7630.126 1850.548 400.516 Weight 83.915 kg 91.9 kg Intake: IV 3045 1575 725 ACETAMINOPHEN IV (For NPO 100 ) 1,000 mg In Empty Bag 1 bag @ 400 mls/hr IVPB Q6HR [facility] Rx#:[id number] Dextrose 5% in Water 1, 500 000 ml @ 100 mls/hr IV . [id number] [facility] with Sodium Bicarb (1 Meq/ml) 150 ml Rx#:[id number] Piperacillin-Tazobactam 3 75 100 .375 gm In Sodium Chloride 0.9% 100 ml @ 25 mls/hr IVPB Q12HR [facility] Rx #:[id number] Sodium Chloride 0.9% 1, 525 1500 125 000 ml @ 125 mls/hr IV . Q8H [facility] Rx#:[id number] Sodium Chloride 0.9% 1, 2000 000 ml @ 999 mls/hr IV . Q1H1M [facility] Rx#:[id number] Intake, IV Titration 21.516 449.548 280.516 Amount Norepinephrine 8 mg In 21.516 449.548 280.516 Sodium Chloride 0.9% 250 ml @ 0.05 MCG/KG/MIN 8. 119 mls/hr IV .Q24H [facility] Rx#:[id number] Output: Drainage 200 Right Abdomen 200 Urine 545 715 605 ABP, PAP, CO, CI - Last Documented Arterial Blood Pressure 108/47 - Exam General: Alert and oriented 3, sitting up in bed, NAD. Vitals reviewed Eyes: PERRL, EOMI, conjunctiva normal HENT: normocephalic, mucus membranes moist Neck: supple, no JVD Lungs: normal respiratory effort, no wheezes or rales CV: Regular rate and rhythm, tachycardic, no murmur. Peripheral pulses 2+ Abdomen: soft. generalized tenderness. RLQ ileostomy good urine output Skin: warm and dry. Microbiology 01/06/22 18:45 Blood Blood Culture Gram Stain - Preliminary 01/06/22 18:45 Blood Blood Culture - Preliminary Gram Neg Bacilli 01/07/22 18:30 Blood Blood Culture Gram Stain - Preliminary 01/07/22 18:30 Blood Blood Culture - Preliminary Pseudomonas aeruginosa 01/07/22 23:30 Urine,Voided Urine Culture - Preliminary 01/06/22 18:30 Blood Blood Culture - Final 01/06/22 18:45 Blood Blood Culture - Final - Labs CBC & Chem 7: 01/08/22 03:25 01/08/22 03:25 Labs: Abnormal Lab Results - Last 24 Hours (Table) 01/07/22 01/07/22 01/07/22 Range/Units 18:07 21:00 23:30 WBC (3.8-10.6) k/uL RBC (4.30-5.90) m/uL Hgb (13.0-17.5) gm/dL Hct (39.0-53.0) % MCV (80.0-100.0) fL Lymphocytes # (Manual) (1.0-4.8) k/uL Metamyelocytes # (Man) (0) k/uL ABG pH (7.35-7.45) ABG pO2 (83-108) mmHg ABG HCO3 (21-25) mmol/L ABG Total CO2 (19-24) mmol/L ABG O2 Saturation (94-97) % Potassium (3.5-5.1) mmol/L Chloride (98-107) mmol/L Carbon Dioxide (22-30) mmol/L BUN (9-20) mg/dL Creatinine (0.66-1.25) mg/dL Glucose (74-99) mg/dL POC Glucose (mg/dL) 200 H 164 H (75-99) mg/dL Calcium (8.4-10.2) mg/dL Urine Protein 1+ H (Negative) Urine Glucose (UA) 3+ H (Negative) Urine Blood Large H (Negative) Ur Leukocyte Esterase Large H (Negative) Urine RBC 59 H (0-5) /hpf Urine WBC 83 H (0-5) /hpf Urine Bacteria Rare H (None) /hpf Urine Mucus Rare H (None) /hpf 01/08/22 01/08/22 01/08/22 Range/Units 03:25 03:25 06:24 WBC 2.6 L (3.8-10.6) k/uL RBC 3.15 L (4.30-5.90) m/uL Hgb 9.8 L (13.0-17.5) gm/dL Hct 31.5 L (39.0-53.0) % MCV 100.1 H (80.0-100.0) fL Lymphocytes # (Manual) 0.42 L (1.0-4.8) k/uL Metamyelocytes # (Man) 0.18 H (0) k/uL ABG pH (7.35-7.45) ABG pO2 (83-108) mmHg ABG HCO3 (21-25) mmol/L ABG Total CO2 (19-24) mmol/L ABG O2 Saturation (94-97) % Potassium 5.7 H (3.5-5.1) mmol/L Chloride 110 H (98-107) mmol/L Carbon Dioxide 16 L (22-30) mmol/L BUN 55 H (9-20) mg/dL Creatinine 3.65 H (0.66-1.25) mg/dL Glucose 140 H (74-99) mg/dL POC Glucose (mg/dL) 124 H (75-99) mg/dL Calcium 7.6 L (8.4-10.2) mg/dL Urine Protein (Negative) Urine Glucose (UA) (Negative) Urine Blood (Negative) Ur Leukocyte Esterase (Negative) Urine RBC (0-5) /hpf Urine WBC (0-5) /hpf Urine Bacteria (None) /hpf Urine Mucus (None) /hpf 01/08/22 01/08/22 01/08/22 Range/Units 08:38 11:36 16:59 WBC (3.8-10.6) k/uL RBC (4.30-5.90) m/uL Hgb (13.0-17.5) gm/dL Hct (39.0-53.0) % MCV (80.0-100.0) fL Lymphocytes # (Manual) (1.0-4.8) k/uL Metamyelocytes # (Man) (0) k/uL ABG pH 7.22 L (7.35-7.45) ABG pO2 73 L (83-108) mmHg ABG HCO3 16 L (21-25) mmol/L ABG Total CO2 17 L (19-24) mmol/L ABG O2 Saturation 93.8 L (94-97) % Potassium (3.5-5.1) mmol/L Chloride (98-107) mmol/L Carbon Dioxide (22-30) mmol/L BUN (9-20) mg/dL Creatinine (0.66-1.25) mg/dL Glucose (74-99) mg/dL POC Glucose (mg/dL) 129 H 180 H (75-99) mg/dL Calcium (8.4-10.2) mg/dL Urine Protein (Negative) Urine Glucose (UA) (Negative) Urine Blood (Negative) Ur Leukocyte Esterase (Negative) Urine RBC (0-5) /hpf Urine WBC (0-5) /hpf Urine Bacteria (None) /hpf Urine Mucus (None) /hpf Microbiology - Last 24 Hours (Table) 01/06/22 18:45 Blood Culture Gram Stain - Preliminary Blood Blood Culture - Preliminary Gram Neg Bacilli 01/07/22 18:30 Blood Culture Gram Stain - Preliminary Blood Blood Culture - Preliminary Pseudomonas aeruginosa 01/07/22 23:30 Urine Culture - Preliminary Urine,Voided Assessment and Plan Assessment: Septic shock secondary to abdominal source. Pseudomonas Bacteremia Hypotension, secondary to septic shock, pressor dependent Acute renal failure secondary to septic shock, hypotension Hyperkalemia secondary to the above Labs acidosis secondary to septic shock with bacteremia Metabolic acidosis secondary to acute renal failure, currently on bicarb drip Incarcerated hernia status post colostomy creation Diabetes mellitus type 2 Plan: Continue on current medication regime ,monitoring and symptomatic treatment. Bicarb drip initiated. Pain management as per surgery.Antibiotics as per ID. urine culture pending. ICU management as per plumbing drafter. Urology evaluation/ recommendations noted. Prognosis guarded given multiple complex medical issues. The impression and plan of care has been dictated as directed. : I performed a history and examination of this patient, discussed the same with the dictator. I agree with the dictator's note ,documented as a scribe. Any additional findings or plans will be noted.
[2022-01-08] MEDS ORDERED: FUROSEMIDE 10 MG/ML 4 ML VIAL ONE (17:52)
[2022-01-08] MEDS ORDERED: FUROSEMIDE 10 MG/ML 4 ML VIAL IV STA (17:52)
[2022-01-08 17:56] LABS: HCT 26.3 % (39.0-53.0); HGB 8.5 gm/dL (13.0-17.5); Hypochromasia Moderate; MCH 32.3 pg (25.0-35.0); MCHC 32.3 g/dL (31.0-37.0); MCV 100.2 fL (80.0-100.0); Macrocytosis Slight; Mean Platelet Volume 8.4; Platelet Count 138 k/uL (150-450); RBC 2.63 m/uL (4.30-5.90); RDW 15.4 % (11.5-15.5); WBC 2.2 k/uL (3.8-10.6)
[2022-01-08] MEDS ORDERED: AMIODARONE IN DEXTROSE,ISO-OSM 360 MG/200 ML PLAST..BAG IV ONE (18:05)
[2022-01-08] MEDS ORDERED: AMIODARONE IN DEXTROSE,ISO-OSM 150 MG/100 ML PLAST..BAG IV ONE (18:05)
[2022-01-08 18:35] LABS: Calcium 7.6 mg/dL (8.4-10.2); Phosphorus 6.5 mg/dL (2.5-4.5); Potassium 5.1 mmol/L (3.5-5.1)
[2022-01-08 18:54] LABS: ABG Base Excess -7.9 mmol/L; ABG HCO3 19 mmol/L (21-25); ABG Oxygen Saturation 92.9 % (94-97); ABG PCO2 39 mmHg (35-45); ABG PH 7.29 (7.35-7.45); ABG PO2 69 mmHg (83-108); ABG TCO2 20 mmol/L (19-24); Allen Test Performed? Yes
[2022-01-08] MEDS ORDERED: SODIUM BICARB 8.4% 50 ML SYR (1 MEQ/ML) IV STA (19:11)
[2022-01-08] MEDS ORDERED: propofoL 100 ML IV ONE (19:44)
[2022-01-08] MEDS ORDERED: CISATRACURIUM 2 MG/ML 5 ML VIAL IV ONE ×2 (20:14→20:18)
[2022-01-08] MEDS ORDERED: Magnesium Replacement Protocol 1 EACH MISC MISCELLANE PRN (20:28)
[2022-01-08] MEDS: MAGNESIUM SULFATE-D5W PMX 1 GM in DEXTROSE/WATER 1 100ML.BAG IVPB SCH ×3 (20:34→22:37)
--- NOTE | 2022-01-08 20:35 | XR ---
EXAMINATION TYPE: XR chest 1V portable DATE OF EXAM: 01/08/2022 8:28 PM COMPARISON:Chest radiograph same day. TECHNIQUE: Frontal view of the chest. CLINICAL INDICATION:Male, 72 years old with history of Tube placement; FINDINGS: Lungs/Pleura: Multifocal airspace opacities. No evidence of pneumothorax or pleural effusion. Pulmonary vascularity: Unremarkable. Heart/mediastinum: Cardiomediastinal silhouette is partially obscured due to overlying and adjacent o pacities. Musculoskeletal: No acute osseous pathology. Other findings: None Lines/Tubes: Endotracheal tube with distal tip 5.1 cm above the jerry Nasogastric tube with its distal tip and side-port projecting under the diaphragm. Right internal jugular central venous catheter with distal tip at the cavoatrial junction. IMPRESSION: 1. Similar multifocal airspace opacities. 2. Support tubes and line in appropriate position.
[2022-01-08] MEDS: NOREPINEPHRINE 32 MG in SODIUM CHLORIDE 0.9% 218 ML IV SCH (20:45)
[2022-01-08] MEDS: CHLORHEXIDINE GLUCONATE 15 ML CUP MUCOUS MEM SCH (21:02)
[2022-01-08] MEDS: fentaNYL (PF) 2,500 MCG in SODIUM CHLORIDE 0.9% 200 ML IV SCH (21:09)
[2022-01-08 21:17] LABS: ABG Base Excess -4.2 mmol/L; ABG HCO3 24 mmol/L (21-25); ABG Oxygen Saturation 99.2 % (94-97); ABG PCO2 62 mmHg (35-45); ABG PO2 218 mmHg (83-108); ABG TCO2 26 mmol/L (19-24); Allen Test Performed? Yes
[2022-01-08] MEDS: SODIUM CHLORIDE 0.9% 50 ML with VASOPRESSIN 20 UNIT IVPB SCH ×2 (21:57)
--- NOTE | 2022-01-08 23:07 | P.PN ---
Subjective Progress Note Date: 01/08/22 Principal diagnosis: Pseudomonas bacteremia Patient is 72-year-old male, presented to hospital with abdominal pain has been diagnosed with strangulated parastomal hernia, in this patient was status post exploratory laparotomy, small bowel resection with ileostomy and re pair of incisional hernia patient was noticed to have a positive blood culture has been finalized with pseudomonas aeruginosa, patient was transferred to the ICU because of hypotension. On today's evaluation that is 01/08/2022, the patient is afebrile, patient is complaining of feeling weak patient denies having any chest pain or shortness of breath mention feeling thirsty and wants to drink abdominal pain is currently controlled no vomiting Objective - Vital Signs Vital signs: Vital Signs Temp 97.5 F L 01/08/22 20:00 Pulse 104 H 01/08/22 23:00 Resp 20 01/08/22 23:00 BP 123/61 01/08/22 22:00 Pulse Ox 99 01/08/22 23:00 Intake & Output 01/08/22 01/08/22 01/09/22 06:59 18:59 06:59 Intake Total 2024.548 1005.516 428.651 Output Total 715 905 650 Balance 1309.548 100.516 -221.349 Weight 91.9 kg Intake: IV 1575 725 300 Dextrose 5% in Water 1, 500 200 000 ml @ 100 mls/hr IV . [id number] [facility] with Sodium Bicarb (1 Meq/ml) 150 ml Rx#:[id number] Piperacillin-Tazobactam 3 75 100 100 .375 gm In Sodium Chloride 0.9% 100 ml @ 25 mls/hr IVPB Q12HR [facility] Rx #:[id number] Sodium Chloride 0.9% 1, 1500 125 000 ml @ 125 mls/hr IV . Q8H [facility] Rx#:[id number] Intake, IV Titration 449.548 280.516 128.651 Amount Norepinephrine 32 mg In 46.165 Sodium Chloride 0.9% 218 ml @ 0.44 MCG/KG/MIN 18. 954 mls/hr IV .[id number] [facility] Rx#:[id number] Norepinephrine 8 mg In 449.548 280.516 59.618 Sodium Chloride 0.9% 250 ml @ 0.05 MCG/KG/MIN 8. 119 mls/hr IV .Q24H [facility] Rx#:[id number] fentaNYL (PF) 2,500 mcg 6.51 In Sodium Chloride 0.9% 200 ml @ 2.5 MCG/KG/HR 22 .975 mls/hr IV .[id number] [facility] Rx#:[id number] propofoL 1,000 mg In 16.358 Empty Bag 1 bag @ Titrate IV .Q0M [facility] Rx#: [id number] Tube Feeding 0 Other 0 Output: Urine 715 905 650 ABP, PAP, CO, CI - Last Documented Arterial Blood Pressure 127/47 - Exam GENERAL DESCRIPTION: An elderly male lying in bed in no distress RESPIRATORY SYSTEM: Unlabored breathing , decreased breath sounds at bases HEART: S1 S2 regular rate and rhythm , ABDOMEN: Soft , mild tenderness EXTREMITIES: No edema fee - Labs CBC & Chem 7: 01/08/22 17:30 01/08/22 17:30 Labs: Abnormal Lab Results - Last 24 Hours (Table) 01/07/22 01/08/22 01/08/22 Range/Units 23:30 03:25 03:25 WBC 2.6 L (3.8-10.6) k/uL RBC 3.15 L (4.30-5.90) m/uL Hgb 9.8 L (13.0-17.5) gm/dL Hct 31.5 L (39.0-53.0) % MCV 100.1 H (80.0-100.0) fL Plt Count (150-450) k/uL Lymphocytes # (Manual) 0.42 L (1.0-4.8) k/uL Metamyelocytes # (Man) 0.18 H (0) k/uL ABG pH (7.35-7.45) ABG pCO2 (35-45) mmHg ABG pO2 (83-108) mmHg ABG HCO3 (21-25) mmol/L ABG Total CO2 (19-24) mmol/L ABG O2 Saturation (94-97) % ABG Lactic Acid (0.5-1.6) mmol/L Potassium 5.7 H (3.5-5.1) mmol/L Chloride 110 H (98-107) mmol/L Carbon Dioxide 16 L (22-30) mmol/L BUN 55 H (9-20) mg/dL Creatinine 3.65 H (0.66-1.25) mg/dL Glucose 140 H (74-99) mg/dL POC Glucose (mg/dL) (75-99) mg/dL Plasma Lactic Acid Guero (0.7-2.0) mmol/L Calcium 7.6 L (8.4-10.2) mg/dL Phosphorus (2.5-4.5) mg/dL Magnesium (1.6-2.3) mg/dL Urine Protein 1+ H (Negative) Urine Glucose (UA) 3+ H (Negative) Urine Blood Large H (Negative) Ur Leukocyte Esterase Large H (Negative) Urine RBC 59 H (0-5) /hpf Urine WBC 83 H (0-5) /hpf Urine Bacteria Rare H (None) /hpf Urine Mucus Rare H (None) /hpf 01/08/22 01/08/22 01/08/22 Range/Units 06:24 08:38 11:36 WBC (3.8-10.6) k/uL RBC (4.30-5.90) m/uL Hgb (13.0-17.5) gm/dL Hct (39.0-53.0) % MCV (80.0-100.0) fL Plt Count (150-450) k/uL Lymphocytes # (Manual) (1.0-4.8) k/uL Metamyelocytes # (Man) (0) k/uL ABG pH 7.22 L (7.35-7.45) ABG pCO2 (35-45) mmHg ABG pO2 73 L (83-108) mmHg ABG HCO3 16 L (21-25) mmol/L ABG Total CO2 17 L (19-24) mmol/L ABG O2 Saturation 93.8 L (94-97) % ABG Lactic Acid (0.5-1.6) mmol/L Potassium (3.5-5.1) mmol/L Chloride (98-107) mmol/L Carbon Dioxide (22-30) mmol/L BUN (9-20) mg/dL Creatinine (0.66-1.25) mg/dL Glucose (74-99) mg/dL POC Glucose (mg/dL) 124 H 129 H (75-99) mg/dL Plasma Lactic Acid Guero (0.7-2.0) mmol/L Calcium (8.4-10.2) mg/dL Phosphorus (2.5-4.5) mg/dL Magnesium (1.6-2.3) mg/dL Urine Protein (Negative) Urine Glucose (UA) (Negative) Urine Blood (Negative) Ur Leukocyte Esterase (Negative) Urine RBC (0-5) /hpf Urine WBC (0-5) /hpf Urine Bacteria (None) /hpf Urine Mucus (None) /hpf 01/08/22 01/08/22 01/08/22 Range/Units 16:59 17:30 17:30 WBC 2.2 L (3.8-10.6) k/uL RBC 2.63 L (4.30-5.90) m/uL Hgb 8.5 L (13.0-17.5) gm/dL Hct 26.3 L (39.0-53.0) % MCV 100.2 H (80.0-100.0) fL Plt Count 138 L (150-450) k/uL Lymphocytes # (Manual) (1.0-4.8) k/uL Metamyelocytes # (Man) (0) k/uL ABG pH (7.35-7.45) ABG pCO2 (35-45) mmHg ABG pO2 (83-108) mmHg ABG HCO3 (21-25) mmol/L ABG Total CO2 (19-24) mmol/L ABG O2 Saturation (94-97) % ABG Lactic Acid (0.5-1.6) mmol/L Potassium (3.5-5.1) mmol/L Chloride 111 H (98-107) mmol/L Carbon Dioxide 15 L (22-30) mmol/L BUN 56 H (9-20) mg/dL Creatinine 3.45 H (0.66-1.25) mg/dL Glucose 200 H (74-99) mg/dL POC Glucose (mg/dL) 180 H (75-99) mg/dL Plasma Lactic Acid Guero (0.7-2.0) mmol/L Calcium 7.6 L (8.4-10.2) mg/dL Phosphorus 6.5 H (2.5-4.5) mg/dL Magnesium 1.0 L (1.6-2.3) mg/dL Urine Protein (Negative) Urine Glucose (UA) (Negative) Urine Blood (Negative) Ur Leukocyte Esterase (Negative) Urine RBC (0-5) /hpf Urine WBC (0-5) /hpf Urine Bacteria (None) /hpf Urine Mucus (None) /hpf 01/08/22 01/08/22 01/08/22 Range/Units 17:30 18:50 21:12 WBC (3.8-10.6) k/uL RBC (4.30-5.90) m/uL Hgb (13.0-17.5) gm/dL Hct (39.0-53.0) % MCV (80.0-100.0) fL Plt Count (150-450) k/uL Lymphocytes # (Manual) (1.0-4.8) k/uL Metamyelocytes # (Man) (0) k/uL ABG pH 7.29 L 7.20 L (7.35-7.45) ABG pCO2 62 H (35-45) mmHg ABG pO2 69 L 218 H (83-108) mmHg ABG HCO3 19 L (21-25) mmol/L ABG Total CO2 26 H (19-24) mmol/L ABG O2 Saturation 92.9 L 99.2 H (94-97) % ABG Lactic Acid 6.5 H* (0.5-1.6) mmol/L Potassium (3.5-5.1) mmol/L Chloride (98-107) mmol/L Carbon Dioxide (22-30) mmol/L BUN (9-20) mg/dL Creatinine (0.66-1.25) mg/dL Glucose (74-99) mg/dL POC Glucose (mg/dL) (75-99) mg/dL Plasma Lactic Acid Guero (0.7-2.0) mmol/L Calcium (8.4-10.2) mg/dL Phosphorus (2.5-4.5) mg/dL Magnesium (1.6-2.3) mg/dL Urine Protein (Negative) Urine Glucose (UA) (Negative) Urine Blood (Negative) Ur Leukocyte Esterase (Negative) Urine RBC (0-5) /hpf Urine WBC (0-5) /hpf Urine Bacteria (None) /hpf Urine Mucus (None) /hpf 01/08/22 Range/Units 21:23 WBC (3.8-10.6) k/uL RBC (4.30-5.90) m/uL Hgb (13.0-17.5) gm/dL Hct (39.0-53.0) % MCV (80.0-100.0) fL Plt Count (150-450) k/uL Lymphocytes # (Manual) (1.0-4.8) k/uL Metamyelocytes # (Man) (0) k/uL ABG pH (7.35-7.45) ABG pCO2 (35-45) mmHg ABG pO2 (83-108) mmHg ABG HCO3 (21-25) mmol/L ABG Total CO2 (19-24) mmol/L ABG O2 Saturation (94-97) % ABG Lactic Acid (0.5-1.6) mmol/L Potassium (3.5-5.1) mmol/L Chloride (98-107) mmol/L Carbon Dioxide (22-30) mmol/L BUN (9-20) mg/dL Creatinine (0.66-1.25) mg/dL Glucose (74-99) mg/dL POC Glucose (mg/dL) (75-99) mg/dL Plasma Lactic Acid Guero 4.7 H* (0.7-2.0) mmol/L Calcium (8.4-10.2) mg/dL Phosphorus (2.5-4.5) mg/dL Magnesium (1.6-2.3) mg/dL Urine Protein (Negative) Urine Glucose (UA) (Negative) Urine Blood (Negative) Ur Leukocyte Esterase (Negative) Urine RBC (0-5) /hpf Urine WBC (0-5) /hpf Urine Bacteria (None) /hpf Urine Mucus (None) /hpf Microbiology - Last 24 Hours (Table) 01/06/22 18:45 Blood Culture Gram Stain - Preliminary Blood Blood Culture - Preliminary Gram Neg Bacilli 01/07/22 18:30 Blood Culture Gram Stain - Preliminary Blood Blood Culture - Preliminary Pseudomonas aeruginosa 01/07/22 23:30 Urine Culture - Preliminary Urine,Voided Assessment and Plan (1) Bacteremia Current Visit: Yes Status: Acute Code(s): R78.81 - BACTEREMIA SNOMED Code(s): 2831152 Plan: Patient with gram-negative bacteremia source is likely abdominal and this patient presented to the hospital with incarcerated hernia status post small b owel resection and ileostomy and repair of the hernia patient is currently covered with the Zosyn to continue while waiting for the sensitivities to finalized and monitor his clinical course closely Time with Patient: Less than 30
[2022-01-08] MEDS: AMIODARONE 450 MG in DEXTROSE 5% IN WATER 250 ML IV SCH ×2 (23:08)
[2022-01-09 00:02] LABS: Glucose,Whole Blood 216 mg/dL (75-99)
[2022-01-09] MEDS: INSULIN ASPART (NovoLOG) 100 UNIT/ML VIAL SQ SCH ×4 (00:17→18:36)
[2022-01-09] MEDS: SODIUM CHLORIDE 0.9% 50 ML with VASOPRESSIN 20 UNIT IVPB SCH ×6 (02:11→18:36)
[2022-01-09] MEDS: SODIUM CHLORIDE 0.9% 1,000 ML IV SCH (04:28)
[2022-01-09] MEDS: DEXTROSE 5% IN WATER 1,000 ML with SODIUM BICARB (1 MEQ/ML) 150 ML IV SCH (05:34)
[2022-01-09 05:40] LABS: Glucose,Whole Blood 196 mg/dL (75-99)
[2022-01-09 06:09] LABS: ABG Base Excess 1.3 mmol/L; ABG HCO3 27 mmol/L (21-25); ABG Oxygen Saturation 98.6 % (94-97); ABG PCO2 46 mmHg (35-45); ABG PH 7.37 (7.35-7.45); ABG PO2 125 mmHg (83-108); ABG TCO2 28 mmol/L (19-24); Allen Test Performed? Yes
[2022-01-09 06:13] LABS: HCT 27.5 % (39.0-53.0); HGB 8.8 gm/dL (13.0-17.5); Hypochromasia Slight; MCH 31.6 pg (25.0-35.0); MCHC 32.1 g/dL (31.0-37.0); MCV 98.4 fL (80.0-100.0); Macrocytosis Slight; Mean Platelet Volume 8.3; Platelet Count 135 k/uL (150-450); RBC 2.79 m/uL (4.30-5.90); WBC 3.8 k/uL (3.8-10.6)
[2022-01-09] MEDS: INSULIN DETEMIR (LEVEMIR) 100 UNIT/ML SYR SQ SCH (06:15)
[2022-01-09 06:18] LABS: Albumin 2.1 g/dL (3.5-5.0); Calcium 7.4 mg/dL (8.4-10.2); Magnesium 1.6 mg/dL (1.6-2.3); Potassium 4.3 mmol/L (3.5-5.1); Total Bilirubin 0.7 mg/dL (0.2-1.3); Total Protein 4.7 g/dL (6.3-8.2)
[2022-01-09] MEDS ORDERED: Magnesium Replacement Protocol 1 EACH MISC MISCELLANE PRN (06:21)
[2022-01-09] MEDS: MAGNESIUM SULFATE-D5W PMX 1 GM in DEXTROSE/WATER 1 100ML.BAG IVPB SCH ×2 (06:51→08:43)
[2022-01-09 06:59] LABS: Band Neutrophils % 29 %; Monocytes # (M) 0.15 k/uL (0-1.0); Neutrophils % (M) 59 %; Nucleated Red Blood Cells 0 /100 WBC (0-0); Total Cells Counted 100
[2022-01-09 07:00] LABS: Anisocytosis (M) Present; Poikilocytosis (M) Present
[2022-01-09] MEDS: IPRATROPIUM-ALBUTEROL 3 ML NEB INHALATION SCH ×4 (07:11→20:56)
--- NOTE | 2022-01-09 07:49 | P.PN ---
Subjective Progress Note Date: 01/09/22 The patient is in the hospital for an incarcerated hernia around his ileal loop stoma. He had emergency surgery to reduce the incarceration and resect the necrotic bowel. At the time of the surgery the ileal loop appeared dusky from the fascial level to the skin. Urine continued to be passed. It was discussed with me as to how to handle this. Most commonly this will resolve on its own with sloughing of the mucosa which is indeed the case. Yesterday about half of the necrotic mucosa sloughed and there is pink mucosa underneath today is almost completely normal. Patient continues to make urine. Unfortunately went into respiratory failure due to sepsis from the necrotic bowel. He is on the v entilator and being managed that way. From a urologic standpoint there is nothing further to be done. Objective - Vital Signs Vital signs: Vital Signs Temp 99 F 01/09/22 04:00 Pulse 99 01/09/22 07:20 Resp 20 01/09/22 07:00 BP 123/61 01/09/22 04:00 Pulse Ox 100 01/09/22 07:00 Intake & Output 01/08/22 01/09/22 01/09/22 18:59 06:59 18:59 Intake Total 0917.825 8821.672 49.396 Output Total 905 2140 Balance 100.516 -140.328 49.396 Weight 95.3 kg Intake: IV 725 1300 Dextrose 5% in Water 1, 500 1200 000 ml @ 100 mls/hr IV . [id number] [facility] with Sodium Bicarb (1 Meq/ml) 150 ml Rx#:[id number] Piperacillin-Tazobactam 3 100 100 .375 gm In Sodium Chloride 0.9% 100 ml @ 25 mls/hr IVPB Q12HR [facility] Rx #:[id number] Sodium Chloride 0.9% 1, 125 000 ml @ 125 mls/hr IV . Q8H [facility] Rx#:[id number] Intake, IV Titration 280.516 699.672 49.396 Amount Norepinephrine 32 mg In 138.502 49.396 Sodium Chloride 0.9% 218 ml @ 0.44 MCG/KG/MIN 18. 954 mls/hr IV .[id number] [facility] Rx#:[id number] Norepinephrine 8 mg In 280.516 235.484 Sodium Chloride 0.9% 250 ml @ 0.05 MCG/KG/MIN 8. 119 mls/hr IV .Q24H [facility] Rx#:[id number] Sodium Chloride 0.9% 50 25.908 ml @ 0.04 UNITS/MIN 6.12 mls/hr IVPB .Q8H20M [facility] with Vasopressin 20 unit Rx#:[id number] fentaNYL (PF) 2,500 mcg 141.297 In Sodium Chloride 0.9% 200 ml @ 2.5 MCG/KG/HR 22 .975 mls/hr IV .[id number] [facility] Rx#:[id number] propofoL 1,000 mg In 158.481 Empty Bag 1 bag @ Titrate IV .Q0M [facility] Rx#: [id number] Tube Feeding 0 Other 0 Output: Gastric Drainage 280 Urine 905 1860 ABP, PAP, CO, CI - Last Documented Arterial Blood Pressure 137/58 - Labs CBC & Chem 7: 01/09/22 05:30 01/09/22 05:30 Labs: Abnormal Lab Results - Last 24 Hours (Table) 01/08/22 01/08/22 01/08/22 Range/Units 08:38 11:36 16:59 WBC (3.8-10.6) k/uL RBC (4.30-5.90) m/uL Hgb (13.0-17.5) gm/dL Hct (39.0-53.0) % MCV (80.0-100.0) fL RDW (11.5-15.5) % Plt Count (150-450) k/uL Lymphocytes # (Manual) (1.0-4.8) k/uL ABG pH 7.22 L (7.35-7.45) ABG pCO2 (35-45) mmHg ABG pO2 73 L (83-108) mmHg ABG HCO3 16 L (21-25) mmol/L ABG Total CO2 17 L (19-24) mmol/L ABG O2 Saturation 93.8 L (94-97) % ABG Lactic Acid (0.5-1.6) mmol/L Chloride (98-107) mmol/L Carbon Dioxide (22-30) mmol/L BUN (9-20) mg/dL Creatinine (0.66-1.25) mg/dL Glucose (74-99) mg/dL POC Glucose (mg/dL) 129 H 180 H (75-99) mg/dL Plasma Lactic Acid Guero (0.7-2.0) mmol/L Calcium (8.4-10.2) mg/dL Phosphorus (2.5-4.5) mg/dL Magnesium (1.6-2.3) mg/dL Total Protein (6.3-8.2) g/dL Albumin (3.5-5.0) g/dL 01/08/22 01/08/22 01/08/22 Range/Units 17:30 17:30 17:30 WBC 2.2 L (3.8-10.6) k/uL RBC 2.63 L (4.30-5.90) m/uL Hgb 8.5 L (13.0-17.5) gm/dL Hct 26.3 L (39.0-53.0) % MCV 100.2 H (80.0-100.0) fL RDW (11.5-15.5) % Plt Count 138 L (150-450) k/uL Lymphocytes # (Manual) (1.0-4.8) k/uL ABG pH (7.35-7.45) ABG pCO2 (35-45) mmHg ABG pO2 (83-108) mmHg ABG HCO3 (21-25) mmol/L ABG Total CO2 (19-24) mmol/L ABG O2 Saturation (94-97) % ABG Lactic Acid 6.5 H* (0.5-1.6) mmol/L Chloride 111 H (98-107) mmol/L Carbon Dioxide 15 L (22-30) mmol/L BUN 56 H (9-20) mg/dL Creatinine 3.45 H (0.66-1.25) mg/dL Glucose 200 H (74-99) mg/dL POC Glucose (mg/dL) (75-99) mg/dL Plasma Lactic Acid Guero (0.7-2.0) mmol/L Calcium 7.6 L (8.4-10.2) mg/dL Phosphorus 6.5 H (2.5-4.5) mg/dL Magnesium 1.0 L (1.6-2.3) mg/dL Total Protein (6.3-8.2) g/dL Albumin (3.5-5.0) g/dL 01/08/22 01/08/22 01/08/22 Range/Units 18:50 21:12 21:23 WBC (3.8-10.6) k/uL RBC (4.30-5.90) m/uL Hgb (13.0-17.5) gm/dL Hct (39.0-53.0) % MCV (80.0-100.0) fL RDW (11.5-15.5) % Plt Count (150-450) k/uL Lymphocytes # (Manual) (1.0-4.8) k/uL ABG pH 7.29 L 7.20 L (7.35-7.45) ABG pCO2 62 H (35-45) mmHg ABG pO2 69 L 218 H (83-108) mmHg ABG HCO3 19 L (21-25) mmol/L ABG Total CO2 26 H (19-24) mmol/L ABG O2 Saturation 92.9 L 99.2 H (94-97) % ABG Lactic Acid (0.5-1.6) mmol/L Chloride (98-107) mmol/L Carbon Dioxide (22-30) mmol/L BUN (9-20) mg/dL Creatinine (0.66-1.25) mg/dL Glucose (74-99) mg/dL POC Glucose (mg/dL) (75-99) mg/dL Plasma Lactic Acid Guero 4.7 H* (0.7-2.0) mmol/L Calcium (8.4-10.2) mg/dL Phosphorus (2.5-4.5) mg/dL Magnesium (1.6-2.3) mg/dL Total Protein (6.3-8.2) g/dL Albumin (3.5-5.0) g/dL 01/09/22 01/09/22 01/09/22 Range/Units 00:01 05:30 05:30 WBC (3.8-10.6) k/uL RBC 2.79 L (4.30-5.90) m/uL Hgb 8.8 L (13.0-17.5) gm/dL Hct 27.5 L (39.0-53.0) % MCV (80.0-100.0) fL RDW 16.0 H (11.5-15.5) % Plt Count 135 L (150-450) k/uL Lymphocytes # (Manual) 0.30 L (1.0-4.8) k/uL ABG pH (7.35-7.45) ABG pCO2 (35-45) mmHg ABG pO2 (83-108) mmHg ABG HCO3 (21-25) mmol/L ABG Total CO2 (19-24) mmol/L ABG O2 Saturation (94-97) % ABG Lactic Acid (0.5-1.6) mmol/L Chloride 108 H (98-107) mmol/L Carbon Dioxide (22-30) mmol/L BUN 59 H (9-20) mg/dL Creatinine 3.15 H (0.66-1.25) mg/dL Glucose 224 H (74-99) mg/dL POC Glucose (mg/dL) 216 H (75-99) mg/dL Plasma Lactic Acid Guero (0.7-2.0) mmol/L Calcium 7.4 L (8.4-10.2) mg/dL Phosphorus (2.5-4.5) mg/dL Magnesium (1.6-2.3) mg/dL Total Protein 4.7 L (6.3-8.2) g/dL Albumin 2.1 L (3.5-5.0) g/dL 01/09/22 01/09/22 Range/Units 05:38 06:03 WBC (3.8-10.6) k/uL RBC (4.30-5.90) m/uL Hgb (13.0-17.5) gm/dL Hct (39.0-53.0) % MCV (80.0-100.0) fL RDW (11.5-15.5) % Plt Count (150-450) k/uL Lymphocytes # (Manual) (1.0-4.8) k/uL ABG pH (7.35-7.45) ABG pCO2 46 H (35-45) mmHg ABG pO2 125 H (83-108) mmHg ABG HCO3 27 H (21-25) mmol/L ABG Total CO2 28 H (19-24) mmol/L ABG O2 Saturation 98.6 H (94-97) % ABG Lactic Acid (0.5-1.6) mmol/L Chloride (98-107) mmol/L Carbon Dioxide (22-30) mmol/L BUN (9-20) mg/dL Creatinine (0.66-1.25) mg/dL Glucose (74-99) mg/dL POC Glucose (mg/dL) 196 H (75-99) mg/dL Plasma Lactic Acid Guero (0.7-2.0) mmol/L Calcium (8.4-10.2) mg/dL Phosphorus (2.5-4.5) mg/dL Magnesium (1.6-2.3) mg/dL Total Protein (6.3-8.2) g/dL Albumin (3.5-5.0) g/dL Microbiology - Last 24 Hours (Table) 01/06/22 18:45 Blood Culture Gram Stain - Preliminary Blood Blood Culture - Preliminary Gram Neg Bacilli 01/07/22 18:30 Blood Culture Gram Stain - Preliminary Blood Blood Culture - Preliminary Pseudomonas aeruginosa 01/07/22 23:30 Urine Culture - Preliminary Urine,Voided
--- NOTE | 2022-01-09 08:12 | XR ---
EXAMINATION TYPE: XR chest 1V portable DATE OF EXAM: 01/09/2022 COMPARISON: Chest x-ray 01/08/2022 HISTORY: Intubated TECHNIQUE: Single frontal view of the chest is obtained. FINDINGS: Endotracheal tube and NG tube, right jugular central venous catheter are all again noted, central venous catheter shows the tip in the right atrium. NG tube is within the stomach. Endotrachea l tube appropriate in position. Bilateral airspace disease and prominent interstitium is present with in the lungs. Cardiac mediastinal silhouette is stable. No evident pneumothorax. Difficult to exclude effusion. IMPRESSION: There is no significant change. Correlate for pneumonia, congestive heart failure, there is interstitial lung disease
[2022-01-09] MEDS: PIPERACILLIN-TAZOBACTAM 3.375 GM in SODIUM CHLORIDE 0.9% 100 ML IVPB SCH ×2 (08:43→20:40)
[2022-01-09] MEDS: fentaNYL (PF) 2,500 MCG in SODIUM CHLORIDE 0.9% 200 ML IV SCH ×2 (08:44→22:40)
[2022-01-09] MEDS: CHLORHEXIDINE GLUCONATE 15 ML CUP MUCOUS MEM SCH ×2 (08:45→20:41)
[2022-01-09] MEDS: PANTOPRAZOLE 40 MG/10 ML VIAL IVP SCH (08:45)
[2022-01-09] MEDS: HEPARIN SODIUM,PORCINE/PF 5,000 UNIT/0.5 ML SYRINGE SQ SCH ×2 (08:46→20:40)
[2022-01-09] MEDS: NOREPINEPHRINE 32 MG in SODIUM CHLORIDE 0.9% 218 ML IV SCH (08:54)
--- NOTE | 2022-01-09 09:08 | P.CRDCN ---
History of Present Illness History of present illness: HISTORY OF PRESENTING ILLNESS Patient is pleasant 72-year-old male with history of CAD with prior PCI, diabetes mellitus type 2, hypertension, hyperlipidemia, BPH, tobacco abuse, bladder cancer with urostomy. Patient had presented to the hospital with abdominal pain and distention and computed tomography scan showed hernia with small bowel perforation and therefore underwent exploratory laparotomy. Since then patient was found to be septic with Pseudomonas bacteremia as well as acute kidney injury. Patient has been having worsened respiratory distress yesterday and eventually intubated. He has had sinus tachycardia throughout his hospitalization with heart rates in the 120s however yesterday went into A. fib with RVR with heart rates in the 130s to 150s. Patient was placed on amiodarone drip and currently this morning is in sinus rhythm with frequent PVCs and PACs. REVIEW OF SYSTEMS Unable to exam secondary to intubated and sedated PHYSICAL EXAMINATION Vital signs reviewed. CONSTITUTIONAL: No apparent distress, ill appearing, sedated on vent HEENT: Head is normocephalic. Pupils are equal, round. Sclerae anicteric. Mucous membranes of the mouth are moist. No JVD. No carotid bruit. CHEST EXAMINATION: Lungs are clear to auscultation. No chest wall tenderness is noted on palpation or with deep breathing. HEART EXAMINATION: Regular rate and rhythm. S1, S2 heard. No murmurs, gallops or rub. ABDOMEN: Soft, nontender. Positive bowel sounds. EXTREMITIES: 2+ peripheral pulses, no lower extremity edema and no calf tenderness. NEUROLOGIC EXAMINATION: Patient is sedated and intubated ASSESSMENT 1. New-onset atrial fibrillation, currently sinus rhythm 2. Status post small bowel perforation and exploratory laparotomy with repair of strangulated hernia 3. Pseudomonas bacteremia 4. Septic shock on vasopressors 5. Acute kidney injury 6. Hyperkalemia 7. Coronary artery disease with prior history of PCI 8. Diabetes mellitus type 2 9. Tobacco abuse 10. Anemia Plan: Patient with new onset atrial fibrillation likely exacerbated by sepsis and bacteremia and metabolic disturbances. Continue amiodarone IV for a full 24 hours and then monitor after this. If he has recurrent episodes may consider more long-term amiodarone. We will check 2-D echo to evaluate left ventricular function. Ideally place patient back on antiplatelets however we will continue to monitor after surgery. Ideally also anticoagulation however we will further assess. Prognosis guarded. Past Medical History Past Medical History: Coronary Artery Disease (CAD), Diabetes Mellitus, Eye Disorder, GERD/Reflux, Hyperlipidemia, Hypertension, Osteoarthritis (OA), Prostate Disorder Additional Past Medical History / Comment(s): ENLARGED PROSTATE, 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 Last Myocardial Infarction Date:: 2008 History of Any Multi-Drug Resistant Organisms: None Reported Past Surgical History: Heart Catheterization With Stent Additional Past Surgical History / Comment(s): EXC.CATARACT RT EYE WITH LENS IMPLANT, COLONOSCOPY 01/2015, FATTY TUMORS REMOVED FROM STOMACH Past Anesthesia/Blood Transfusion Reactions: No Reported Reaction Date of Last Stent Placement:: 2008 Past Psychological History: No Psychological Hx Reported Smoking Status: Current every day smoker Past Alcohol Use History: Rare Past Drug Use History: None Reported - Past Family History Mother Family Medical History: Cancer, Deep Vein Thrombosis (DVT), Hypertension Additional Family Medical History / Comment(s): OF BREAST CA Father Family Medical History: Cancer Additional Family Medical History / Comment(s): STOMACH CA Medications and Allergies Home Medications Medication Instructions Recorded Confirmed Type Aspirin 81 mg PO DAILY 06/20/15 01/06/22 History Atorvastatin [Lipitor] 20 mg PO DAILY 06/20/15 01/06/22 History Omeprazole [PriLOSEC] 20 mg PO DAILY 06/20/15 01/06/22 History Isosorbide Mononitrate ER [Imdur] 30 mg PO DAILY 07/14/17 01/06/22 History Cholecalciferol [Vitamin D3 (25 25 mcg PO DAILY 01/06/22 01/06/22 History Mcg = 1000 Iu)] Clopidogrel [Plavix] 75 mg PO DAILY 01/06/22 01/06/22 History Docusate [Colace] 100 mg PO DAILY 01/06/22 01/06/22 History Empagliflozin [Jardiance] 10 mg PO HS 01/06/22 01/06/22 History Insulin Aspart Protam & Aspart 20 unit SQ BID 01/06/22 01/06/22 History [NovoLOG MIX 70-30 Flexpen] Metoclopramide [Reglan] 10 mg PO TID PRN 01/06/22 01/06/22 History Montelukast [Singulair] 10 mg PO HS 01/06/22 01/06/22 History lisinopriL [Zestril] 5 mg PO DAILY 01/06/22 01/06/22 History Allergies Allergy/AdvReac Type Severity Reaction Status Date / Time No Known Allergies Allergy Verified 01/06/22 17:24 Physical Exam Vitals: Vital Signs Temp Pulse Pulse Resp BP Pulse Ox 01/09/22 07:20 99 01/09/22 07:12 96 01/09/22 07:00 106 H 20 100 01/09/22 06:30 98 20 100 01/09/22 06:00 98 20 100 01/09/22 05:30 95 20 100 01/09/22 05:00 98 20 99 01/09/22 04:30 94 20 100 01/09/22 04:00 99 F 97 20 99 01/09/22 03:30 93 20 99 01/09/22 03:00 80 20 100 01/09/22 02:30 79 20 100 01/09/22 02:00 77 20 100 01/09/22 01:30 81 20 100 01/09/22 01:00 81 20 100 01/09/22 00:30 81 20 100 01/09/22 00:01 103 H 20 100 01/09/22 00:00 98.1 F 112 H 20 100 01/08/22 23:30 100 20 98 01/08/22 23:00 104 H 20 99 01/08/22 22:30 112 H 20 99 01/08/22 22:00 118 H 21 123/61 99 01/08/22 21:30 134 H 16 99 01/08/22 21:00 144 H 21 100 01/08/22 20:30 142 H 21 99 01/08/22 20:01 134 H 01/08/22 20:00 97.5 F L 141 H 24 113/91 88 L 01/08/22 19:30 152 H 23 01/08/22 19:00 144 H 58 H 97/73 74 L 01/08/22 18:30 134 H 16 97/73 97 01/08/22 18:00 151 H 25 H 108/77 95 01/08/22 17:30 133 H 34 H 108/77 94 L 01/08/22 17:00 135 H 29 H 103/52 98 01/08/22 16:30 128 H 24 98 01/08/22 16:00 131 H 119 H 34 H 77/50 99 02/09/22 15:54 129 H 01/08/22 15:45 123 H 01/08/22 15:30 126 H 28 H 99 01/08/22 15:00 120 H 20 100/62 98 01/08/22 14:00 122 H 21 100/62 98 01/08/22 13:30 123 H 18 80/51 97 01/08/22 13:00 124 H 18 107/63 98 01/08/22 12:30 130 H 20 107/63 99 01/08/22 12:00 99.4 F 128 H 119 H 31 H 112/65 99 01/08/22 11:30 131 H 34 H 99 01/08/22 11:10 126 H 01/08/22 11:00 128 H 31 H 98 01/08/22 10:59 125 H 01/08/22 10:30 125 H 27 H 99 01/08/22 10:00 125 H 32 H 113/63 99 01/08/22 09:30 126 H 24 99 Intake and Output 01/08/22 01/09/22 01/09/22 22:59 06:59 14:59 Intake Total 343.924 3933.021 251.631 Output Total 1060 1380 Balance -508.833 91.021 251.631 Intake: IV 400 900 Dextrose 5% in Water 1, 300 900 000 ml @ 100 mls/hr IV . [id number] [facility] with Sodium Bicarb (1 Meq/ml) 150 ml Rx#:[id number] Piperacillin-Tazobactam 3 100 .375 gm In Sodium Chloride 0.9% 100 ml @ 25 mls/hr IVPB Q12HR [facility] Rx #:[id number] Intake, IV Titration 151.167 571.021 251.631 Amount Norepinephrine 32 mg In 46.165 92.337 65.292 Sodium Chloride 0.9% 218 ml @ 0.44 MCG/KG/MIN 18. 954 mls/hr IV .[id number] [facility] Rx#:[id number] Norepinephrine 8 mg In 82.134 175.866 Sodium Chloride 0.9% 250 ml @ 0.05 MCG/KG/MIN 8. 119 mls/hr IV .Q24H [facility] Rx#:[id number] Sodium Chloride 0.9% 50 25.908 40.188 ml @ 0.04 UNITS/MIN 6.12 mls/hr IVPB .Q8H20M [facility] with Vasopressin 20 unit Rx#:[id number] fentaNYL (PF) 2,500 mcg 6.51 134.787 87.611 In Sodium Chloride 0.9% 200 ml @ 2.5 MCG/KG/HR 22 .975 mls/hr IV .[id number] [facility] Rx#:[id number] propofoL 1,000 mg In 16.358 142.123 58.54 Empty Bag 1 bag @ Titrate IV .Q0M [facility] Rx#: [id number] Tube Feeding 0 Other 0 Output: Gastric Drainage 280 Urine 1060 1100 Other: Weight 95.3 kg ABP, PAP, CO, CI - Last 8 Hours Arterial Blood Pressure 137/58 Arterial Blood Pressure 131/49 Arterial Blood Pressure 129/48 Arterial Blood Pressure 141/50 Arterial Blood Pressure 139/46 Arterial Blood Pressure 134/48 Arterial Blood Pressure 138/44 Arterial Blood Pressure 138/47 Arterial Blood Pressure 154/53 Arterial Blood Pressure 131/51 Arterial Blood Pressure 133/52 Arterial Blood Pressure 113/48 Results 01/09/22 05:30 01/09/22 05:30 Cardiac Enzymes 01/09/22 Range/Units 05:30 AST 21 (17-59) U/L CBC 01/08/22 01/09/22 Range/Units 17:30 05:30 WBC 2.2 L 3.8 (3.8-10.6) k/uL RBC 2.63 L 2.79 L (4.30-5.90) m/uL Hgb 8.5 L 8.8 L (13.0-17.5) gm/dL Hct 26.3 L 27.5 L (39.0-53.0) % Plt Count 138 L 135 L (150-450) k/uL Comprehensive Metabolic Panel 01/08/22 01/09/22 Range/Units 17:30 05:30 Sodium 141 141 (137-145) mmol/L Potassium 5.1 4.3 (3.5-5.1) mmol/L Chloride 111 H 108 H (98-107) mmol/L Carbon Dioxide 15 L 23 (22-30) mmol/L BUN 56 H 59 H (9-20) mg/dL Creatinine 3.45 H 3.15 H (0.66-1.25) mg/dL Glucose 200 H 224 H (74-99) mg/dL Calcium 7.6 L 7.4 L (8.4-10.2) mg/dL AST 21 (17-59) U/L ALT 17 (4-49) U/L Alkaline Phosphatase 61 (38-126) U/L Total Protein 4.7 L (6.3-8.2) g/dL Albumin 2.1 L (3.5-5.0) g/dL Current Medications Generic Name Dose Route Start Last Admin Trade Name Freq PRN Reason Stop Dose Admin Acetaminophen 650 mg 01/06/22 20:45 Acetaminophen Tab 325 Mg Tab PO Q6HR PRN Mild Pain or Fever >= 100.5 Hydrocodone Bitart/Acetaminophen 2 each 01/06/22 20:45 Hydrocodone/Apap 5-325mg 1 Each Tab PO Q6HR PRN Moderate to Severe Pain Albuterol/Ipratropium 3 ml 01/07/22 12:00 01/09/22 07:11 Ipratropium-Albuterol 3 Ml Neb INHALATION 3 ml RT-QID [facility] Administration Albuterol/Ipratropium 3 ml 01/07/22 10:38 Ipratropium-Albuterol 3 Ml Neb INHALATION RT-Q2H PRN Shortness Of Breath Or Wheezing Chlorhexidine Gluconate 15 ml 01/08/22 21:00 01/09/22 08:45 Chlorhexidine Gluconate 15 Ml Cup MUCOUS MEM 15 ml BID [facility] Administration Heparin Sodium (Porcine) 5,000 unit 01/07/22 21:00 01/09/22 08:46 Heparin Sodium,Porcine/Pf 5,000 Unit/0.5 Ml Syringe SQ 5,000 unit Q12HR [facility] Administration Hydromorphone HCl 1 mg 01/06/22 20:45 01/08/22 20:06 Hydromorphone 1 Mg/Ml 1 Ml Syringe IVP 1 mg Q3HR PRN Administration Moderate to Severe Pain Piperacillin Sod/Tazobactam 100 mls @ 25 mls/hr 01/07/22 21:00 01/09/22 08:43 Sod 3.375 gm/ Sodium Chloride IVPB 25 mls/hr Q12HR [facility] Administration Sodium Bicarbonate 150 ml/ 1,150 mls @ 100 mls/hr 01/08/22 09:00 01/09/22 05:34 Dextrose/Water IV 100 mls/hr .[id number] [facility] Administration Sodium Chloride 1,000 mls @ 50 mls/hr 01/08/22 09:15 01/09/22 04:28 Saline 0.9% IV 50 mls/hr .Q20H [facility] Administration Amiodarone HCl 450 mg/ 250 mls @ 16.667 mls/hr 01/08/22 23:45 01/08/22 23:08 Dextrose/Water IV 01/09/22 17:44 0.5 mg/min .Q15H [facility] 16.667 mls/hr Administration Protocol 0.5 MG/MIN Propofol 1,000 mg/ IV Solution 100 mls @ 0 mls/hr 01/08/22 20:00 01/09/22 08:45 IV 35 mcg/kg/min .Q0M [facility] 19.299 mls/hr Administration Protocol Titrate Fentanyl Citrate 2,500 mcg/ 250 mls @ 22.975 mls/hr 01/08/22 21:00 01/09/22 08:44 Sodium Chloride IV 2 mcg/kg/hr .[id number] [facility] 18.38 mls/hr Administration Protocol 2.5 MCG/KG/HR Norepinephrine Bitartrate 32 250 mls @ 18.954 mls/hr 01/08/22 20:30 01/09/22 08:54 mg/ Sodium Chloride IV 0.27 mcg/kg/min .[id number] [facility] 11.631 mls/hr Administration Protocol 0.44 MCG/KG/MIN Vasopressin 20 unit/ Sodium 51 mls @ 6.12 mls/hr 01/08/22 21:30 01/09/22 08:45 Chloride IVPB 0.04 units/min .Q8H20M [facility] 6.12 mls/hr Administration Protocol 0.04 UNITS/MIN Insulin Aspart 0 unit 01/09/22 00:00 01/09/22 05:41 Insulin Aspart (Novolog) 100 Unit/Ml Vial SQ 3 unit Q6H [facility] Administration Protocol Insulin Detemir 10 unit 01/07/22 11:30 01/09/22 06:15 Insulin Detemir (Levemir) 100 Unit/Ml Syr SQ 10 unit DAILY@0700 [facility] Administration Metoclopramide HCl 10 mg 01/06/22 20:45 Metoclopramide 5 Mg/Ml 2 Ml Vial IVP Q6H PRN Nausea And Vomiting Miscellaneous Information 1 each 01/08/22 20:28 Magnesium Replacement Protocol 1 Each Misc MISCELLANE DAILY PRN Per Protocol Protocol Miscellaneous Information 1 each 01/09/22 06:21 Magnesium Replacement Protocol 1 Each Misc MISCELLANE DAILY PRN Per Protocol Protocol Naloxone HCl 0.2 mg 01/06/22 20:45 Naloxone 0.4 Mg/Ml 1 Ml Vial IV Q2M PRN Opioid Reversal Ondansetron HCl 4 mg 01/06/22 20:45 Ondansetron 4 Mg/2 Ml Vial IVP Q6HR PRN Nausea And Vomiting Pantoprazole Sodium 40 mg 01/07/22 10:45 01/09/22 08:45 Pantoprazole 40 Mg/10 Ml Vial IVP 40 mg DAILY [facility] Administration Intake and Output 01/08/22 01/09/22 01/09/22 22:59 06:59 14:59 Intake Total 834.585 6458.021 251.631 Output Total 1060 1380 Balance -508.833 91.021 251.631 Intake: IV 400 900 Dextrose 5% in Water 1, 300 900 000 ml @ 100 mls/hr IV . [id number] [facility] with Sodium Bicarb (1 Meq/ml) 150 ml Rx#:[id number] Piperacillin-Tazobactam 3 100 .375 gm In Sodium Chloride 0.9% 100 ml @ 25 mls/hr IVPB Q12HR [facility] Rx #:[id number] Intake, IV Titration 151.167 571.021 251.631 Amount Norepinephrine 32 mg In 46.165 92.337 65.292 Sodium Chloride 0.9% 218 ml @ 0.44 MCG/KG/MIN 18. 954 mls/hr IV .[id number] [facility] Rx#:[id number] Norepinephrine 8 mg In 82.134 175.866 Sodium Chloride 0.9% 250 ml @ 0.05 MCG/KG/MIN 8. 119 mls/hr IV .Q24H [facility] Rx#:[id number] Sodium Chloride 0.9% 50 25.908 40.188 ml @ 0.04 UNITS/MIN 6.12 mls/hr IVPB .Q8H20M [facility] with Vasopressin 20 unit Rx#:[id number] fentaNYL (PF) 2,500 mcg 6.51 134.787 87.611 In Sodium Chloride 0.9% 200 ml @ 2.5 MCG/KG/HR 22 .975 mls/hr IV .[id number] [facility] Rx#:[id number] propofoL 1,000 mg In 16.358 142.123 58.54 Empty Bag 1 bag @ Titrate IV .Q0M [facility] Rx#: [id number] Tube Feeding 0 Other 0 Output: Gastric Drainage 280 Urine 1060 1100 Other: Weight 95.3 kg 01/09/22 05:30 01/09/22 05:30
--- NOTE | 2022-01-09 11:24 | P.PN ---
Subjective Principal diagnosis: Patient is a 72-year-old male with history of bladder cancer status post cystectomy and ileal loop urostomy he was admitted to the hospital with abdominal pain and found to have a parastomal hernia with incarceration and bowel necrosis. Patient was taken to surgery on 01/06/2022 and had explorative laparotomy with repair of strangulated parastomal hernia and small bowel resection with ileostomy and repair of incisional hernia. Patient is seen for follow-up for acute kidney injury, mostly ATN secondary to hypotension and sepsis as well as an obstructive component. Renal function has been improving. Patient has had good output from his urostomy. Pressors are being decreased. Patient remains on IV fluids. Objective - Vital Signs Vital signs: Vital Signs Temp 99 F 01/09/22 04:00 Pulse 99 01/09/22 07:20 Resp 20 01/09/22 07:00 BP 123/61 01/09/22 04:00 Pulse Ox 100 01/09/22 07:00 Intake & Output 01/08/22 01/09/22 01/09/22 18:59 06:59 18:59 Intake Total 0966.811 3379.672 251.631 Output Total 905 2140 Balance 100.516 -140.328 251.631 Weight 95.3 kg Intake: IV 725 1300 Dextrose 5% in Water 1, 500 1200 000 ml @ 100 mls/hr IV . [id number] [facility] with Sodium Bicarb (1 Meq/ml) 150 ml Rx#:[id number] Piperacillin-Tazobactam 3 100 100 .375 gm In Sodium Chloride 0.9% 100 ml @ 25 mls/hr IVPB Q12HR [facility] Rx #:[id number] Sodium Chloride 0.9% 1, 125 000 ml @ 125 mls/hr IV . Q8H [facility] Rx#:[id number] Intake, IV Titration 280.516 699.672 251.631 Amount Norepinephrine 32 mg In 138.502 65.292 Sodium Chloride 0.9% 218 ml @ 0.44 MCG/KG/MIN 18. 954 mls/hr IV .[id number] [facility] Rx#:[id number] Norepinephrine 8 mg In 280.516 235.484 Sodium Chloride 0.9% 250 ml @ 0.05 MCG/KG/MIN 8. 119 mls/hr IV .Q24H [facility] Rx#:[id number] Sodium Chloride 0.9% 50 25.908 40.188 ml @ 0.04 UNITS/MIN 6.12 mls/hr IVPB .Q8H20M [facility] with Vasopressin 20 unit Rx#:[id number] fentaNYL (PF) 2,500 mcg 141.297 87.611 In Sodium Chloride 0.9% 200 ml @ 2.5 MCG/KG/HR 22 .975 mls/hr IV .[id number] [facility] Rx#:[id number] propofoL 1,000 mg In 158.481 58.54 Empty Bag 1 bag @ Titrate IV .Q0M [facility] Rx#: [id number] Tube Feeding 0 Other 0 Output: Gastric Drainage 280 Urine 905 1860 ABP, PAP, CO, CI - Last Documented Arterial Blood Pressure 137/58 - Exam Patient is sedated. He is on the vent. Examination of the heart S1 and S2 Examination lungs bilateral breath sounds are heard Abdomen is soft. Ileostomy and urostomy noted Examination of the lower extremities shows no evidence of edema [employer] exam cannot be performed as patient is sedated - Labs CBC & Chem 7: 01/09/22 05:30 01/09/22 05:30 Labs: Abnormal Lab Results - Last 24 Hours (Table) 01/08/22 01/08/22 01/08/22 Range/Units 11:36 16:59 17:30 WBC 2.2 L (3.8-10.6) k/uL RBC 2.63 L (4.30-5.90) m/uL Hgb 8.5 L (13.0-17.5) gm/dL Hct 26.3 L (39.0-53.0) % MCV 100.2 H (80.0-100.0) fL RDW (11.5-15.5) % Plt Count 138 L (150-450) k/uL Lymphocytes # (Manual) (1.0-4.8) k/uL ABG pH (7.35-7.45) ABG pCO2 (35-45) mmHg ABG pO2 (83-108) mmHg ABG HCO3 (21-25) mmol/L ABG Total CO2 (19-24) mmol/L ABG O2 Saturation (94-97) % ABG Lactic Acid (0.5-1.6) mmol/L Chloride (98-107) mmol/L Carbon Dioxide (22-30) mmol/L BUN (9-20) mg/dL Creatinine (0.66-1.25) mg/dL Glucose (74-99) mg/dL POC Glucose (mg/dL) 129 H 180 H (75-99) mg/dL Plasma Lactic Acid Guero (0.7-2.0) mmol/L Calcium (8.4-10.2) mg/dL Phosphorus (2.5-4.5) mg/dL Magnesium (1.6-2.3) mg/dL Total Protein (6.3-8.2) g/dL Albumin (3.5-5.0) g/dL 01/08/22 01/08/22 01/08/22 Range/Units 17:30 17:30 18:50 WBC (3.8-10.6) k/uL RBC (4.30-5.90) m/uL Hgb (13.0-17.5) gm/dL Hct (39.0-53.0) % MCV (80.0-100.0) fL RDW (11.5-15.5) % Plt Count (150-450) k/uL Lymphocytes # (Manual) (1.0-4.8) k/uL ABG pH 7.29 L (7.35-7.45) ABG pCO2 (35-45) mmHg ABG pO2 69 L (83-108) mmHg ABG HCO3 19 L (21-25) mmol/L ABG Total CO2 (19-24) mmol/L ABG O2 Saturation 92.9 L (94-97) % ABG Lactic Acid 6.5 H* (0.5-1.6) mmol/L Chloride 111 H (98-107) mmol/L Carbon Dioxide 15 L (22-30) mmol/L BUN 56 H (9-20) mg/dL Creatinine 3.45 H (0.66-1.25) mg/dL Glucose 200 H (74-99) mg/dL POC Glucose (mg/dL) (75-99) mg/dL Plasma Lactic Acid Guero (0.7-2.0) mmol/L Calcium 7.6 L (8.4-10.2) mg/dL Phosphorus 6.5 H (2.5-4.5) mg/dL Magnesium 1.0 L (1.6-2.3) mg/dL Total Protein (6.3-8.2) g/dL Albumin (3.5-5.0) g/dL 01/08/22 01/08/22 01/09/22 Range/Units 21:12 21:23 00:01 WBC (3.8-10.6) k/uL RBC (4.30-5.90) m/uL Hgb (13.0-17.5) gm/dL Hct (39.0-53.0) % MCV (80.0-100.0) fL RDW (11.5-15.5) % Plt Count (150-450) k/uL Lymphocytes # (Manual) (1.0-4.8) k/uL ABG pH 7.20 L (7.35-7.45) ABG pCO2 62 H (35-45) mmHg ABG pO2 218 H (83-108) mmHg ABG HCO3 (21-25) mmol/L ABG Total CO2 26 H (19-24) mmol/L ABG O2 Saturation 99.2 H (94-97) % ABG Lactic Acid (0.5-1.6) mmol/L Chloride (98-107) mmol/L Carbon Dioxide (22-30) mmol/L BUN (9-20) mg/dL Creatinine (0.66-1.25) mg/dL Glucose (74-99) mg/dL POC Glucose (mg/dL) 216 H (75-99) mg/dL Plasma Lactic Acid Guero 4.7 H* (0.7-2.0) mmol/L Calcium (8.4-10.2) mg/dL Phosphorus (2.5-4.5) mg/dL Magnesium (1.6-2.3) mg/dL Total Protein (6.3-8.2) g/dL Albumin (3.5-5.0) g/dL 01/09/22 01/09/22 01/09/22 Range/Units 05:30 05:30 05:38 WBC (3.8-10.6) k/uL RBC 2.79 L (4.30-5.90) m/uL Hgb 8.8 L (13.0-17.5) gm/dL Hct 27.5 L (39.0-53.0) % MCV (80.0-100.0) fL RDW 16.0 H (11.5-15.5) % Plt Count 135 L (150-450) k/uL Lymphocytes # (Manual) 0.30 L (1.0-4.8) k/uL ABG pH (7.35-7.45) ABG pCO2 (35-45) mmHg ABG pO2 (83-108) mmHg ABG HCO3 (21-25) mmol/L ABG Total CO2 (19-24) mmol/L ABG O2 Saturation (94-97) % ABG Lactic Acid (0.5-1.6) mmol/L Chloride 108 H (98-107) mmol/L Carbon Dioxide (22-30) mmol/L BUN 59 H (9-20) mg/dL Creatinine 3.15 H (0.66-1.25) mg/dL Glucose 224 H (74-99) mg/dL POC Glucose (mg/dL) 196 H (75-99) mg/dL Plasma Lactic Acid Guero (0.7-2.0) mmol/L Calcium 7.4 L (8.4-10.2) mg/dL Phosphorus (2.5-4.5) mg/dL Magnesium (1.6-2.3) mg/dL Total Protein 4.7 L (6.3-8.2) g/dL Albumin 2.1 L (3.5-5.0) g/dL 01/09/22 Range/Units 06:03 WBC (3.8-10.6) k/uL RBC (4.30-5.90) m/uL Hgb (13.0-17.5) gm/dL Hct (39.0-53.0) % MCV (80.0-100.0) fL RDW (11.5-15.5) % Plt Count (150-450) k/uL Lymphocytes # (Manual) (1.0-4.8) k/uL ABG pH (7.35-7.45) ABG pCO2 46 H (35-45) mmHg ABG pO2 125 H (83-108) mmHg ABG HCO3 27 H (21-25) mmol/L ABG Total CO2 28 H (19-24) mmol/L ABG O2 Saturation 98.6 H (94-97) % ABG Lactic Acid (0.5-1.6) mmol/L Chloride (98-107) mmol/L Carbon Dioxide (22-30) mmol/L BUN (9-20) mg/dL Creatinine (0.66-1.25) mg/dL Glucose (74-99) mg/dL POC Glucose (mg/dL) (75-99) mg/dL Plasma Lactic Acid Guero (0.7-2.0) mmol/L Calcium (8.4-10.2) mg/dL Phosphorus (2.5-4.5) mg/dL Magnesium (1.6-2.3) mg/dL Total Protein (6.3-8.2) g/dL Albumin (3.5-5.0) g/dL Microbiology - Last 24 Hours (Table) 01/07/22 23:30 Urine Culture - Final Urine,Voided 01/06/22 18:45 Blood Culture Gram Stain - Preliminary Blood Blood Culture - Preliminary Gram Neg Bacilli 01/07/22 18:30 Blood Culture Gram Stain - Preliminary Blood Blood Culture - Preliminary Pseudomonas aeruginosa Assessment and Plan Assessment: 1. Acute kidney injury, ATN nonoliguric secondary to hypotension and sepsis as well as an obstructive, component. CT of the abdomen on initial admission showed the parastomal hernia with obstruction and mild bilateral hydronephrosis and hydroureter. Currently urine output is good urine ostomy seems to be working fairly well. Continue with IV fluids 2. Incarcerated parastomal hernia and necrotic bowel status post emergency resection of the bowel with ileostomy and repair of strangulated parastomal hernia. 3. Hypotension from sepsis maintained on antibiotics and pressors. 4. History of bladder cancer status post cystectomy and ileal loop urostomy 5. Hyperkalemia associated with acute kidney injury and metabolic acidosis 6. Metabolic acidosis associated with acute kidney injury and hypotension, maintained on bicarb drip 7. Pseudomonas bacteremia, urine culture currently pending UA suggestive of urinary tract infection. Plan: I continue with IV fluids, we will DC the bicarb drip tomorrow Repeat labs in a.m. Continue with antibiotics
[2022-01-09 11:33] LABS: Glucose,Whole Blood 176 mg/dL (75-99)
[2022-01-09] MEDS: AMIODARONE 450 MG in DEXTROSE 5% IN WATER 250 ML IV SCH ×2 (12:00)
--- NOTE | 2022-01-09 12:25 | P.PN ---
Subjective Progress Note Date: 01/09/22 Principal diagnosis: Acute hypoxic respiratory failure secondary to Sepsis and septic shock secondary to Pseudomonas bacteremia, exact source is unclear This is a 72-year-old male patient with a known history of coronary artery disease with previous stent placement, diabetes mellitus, hypertension, hyperlipidemia, BPH, chronic and ongoing tobacco dependence. He also has a hist ory of urostomy that was done at [facility] several years ago and previous bladder cancer. He had presented to the emergency room yesterday with complaints of abdominal painand distention. CAT scan of the abdomen revealed cyst addition for parastomal hernia which is obstructing the patient Werner conduit through the subcutaneous tissues. There is mild bilateral hydronephrosis. Parastomal hernia containing small bowel demonstrated pneumobilia suggesting strangulation small bowel with possible perforation. Subcutaneous gas which may represent superimposed infections secondary to the small bowel strangulation and possible perforation. White count 12.2. Hemoglobin 10.4. Sodium 138. Pot assium 4.8. BUN 47. Creatinine 3.17. Glucose 252. Plasma lactic acid 2.2. Troponin 0.013. House virus by PCR not detected. He was taken to the operating room last evening and had undergone an exploratory laparotomy, repair of strangulated parastomal hernia, small bowel resection with ileostomy, repair of incisional hernia. Blood cultures preliminary revealing gram-negative bacilli. Lactic acid up to 4.9 today. The patient had issues with hypotension and tachycardia this morning. We're consulted for ICU management. He was transferred there per medicine. 1 L of fluid resuscitation was given. Current labs revealed WBC 2.6. Hemoglobin 11.2. Sodium 133. Potassium 5.5. Chloride 105. Bicarb 17. BUN 55. Creatinine 3.80. Glucose 305. currently on Zosyn. He is seen today in consultation. He is awake and alert. He is having some surgical site pain but denies any worsening shortness of breath. No cough or congestion. No fever. The patient is seen today 01/08/2022 in follow-up in the intensive care unit. He is currently sitting up in bed. More awake and alert today. His color is better. He did receive 4 L of fluid resuscitation yesterday. He is now requiring norepinephrine currently at 0.26 mcg/kg/m. He has 0.9% normal saline running at 125 ML's per hour. Mean arterial pressure 85 currently. He is tachycardic in the 120s. Sinus. Maintaining O2 saturation the high 90s on 2 L/m per nasal cannula. Chest x-ray continues to show interstitial changes in the lung bases. No pneumothorax. Suspect basilar atelectasis versus pneumonia and possible underlying interstitial lung disease. The patient denied having had COVID-19 infection. Blood culture is positive for pseudomonas aeruginosa. He is currently on Zosyn. White count 2.6. Hemoglobin 9.8. Sodium 138. Potassium 5.7. Bicarb 16. BUN 55. Creatinine 3.65. Glucose 140. Urinalysis with large amount of blood and high WBCs. Cultures pending. Arterial blood gases on 28% FiO2 revealed a PaO2 of 73, pCO2 38 and a pH of 7.22. He remains on DuoNeb inhalations, heparin for DVT prophylaxis, Protonix for GI prophylaxis. He remains nothing by mouth. There is minimal output of the ileostomy. [place]lin e dressing dry and intact. Urostomy with adequate output. Currently in a 3.2 L positive balance Reevaluated today on 01/09/2022, patient remains in the ICU, intubated and mechanically ventilated. Clinical status deteriorated last night, patient had to be intubated. He is now on assist control rate of 30 tidal volume 500 FiO2 50% and PEEP of 8. ABG showed a pO2 of 125 pCO2 46 pH of 7.37. Patient had to be placed on bicarb drip yesterday and he is now on bicarbonate 50 mL per hour. His FiO2 was decreased down to 40% after reviewing the ABG. Patient is requiring norepinephrine at 0.25 he is also requiring vasopressin at 0.04. Received multiple fluid boluses yesterday, and the patient clearly has a septic shock presentation. He is on vasopressin at 0.04. He is also on fentanyl at 2 mcg/kg/hour, propofol at 35 mcg/kg/m, patient is not requiring any paralysis. Chest x-ray is showing a picture of congestive heart failure, possibly some pneumonia/superimposed. His cultures have been positive for pseudomonas aeruginosa. Patient remains on Zosyn. Urine cultures are nondiagnostic, sputum cultures are pending. WBC count today is 3.8 hemoglobin is 8.8. Complete metabolic profile is relatively unremarkable except for worsening renal profile with a BUN up to 59 and creatinine 3.15, being followed by nephrology on the case. Objective - Vital Signs Vital signs: Vital Signs Temp 99 F 01/09/22 04:00 Pulse 99 01/09/22 11:27 Resp 20 01/09/22 07:00 BP 123/61 01/09/22 04:00 Pulse Ox 100 01/09/22 07:00 Intake & Output 01/08/22 01/09/22 01/09/22 18:59 06:59 18:59 Intake Total 4566.007 5180.672 251.631 Output Total 905 2140 Balance 100.516 -140.328 251.631 Weight 95.3 kg Intake: IV 725 1300 Dextrose 5% in Water 1, 500 1200 000 ml @ 100 mls/hr IV . [id number] [facility] with Sodium Bicarb (1 Meq/ml) 150 ml Rx#:[id number] Piperacillin-Tazobactam 3 100 100 .375 gm In Sodium Chloride 0.9% 100 ml @ 25 mls/hr IVPB Q12HR COUNT INCLUDES THE [facility] Rx #:[id number] Sodium Chloride 0.9% 1, 125 000 ml @ 125 mls/hr IV . Q8H COUNT INCLUDES THE [facility] Rx#:[id number] Intake, IV Titration 280.516 699.672 251.631 Amount Norepinephrine 32 mg In 138.502 65.292 Sodium Chloride 0.9% 218 ml @ 0.44 MCG/KG/MIN 18. 954 mls/hr IV .[id number] COUNT INCLUDES THE [facility] Rx#:[id number] Norepinephrine 8 mg In 280.516 235.484 Sodium Chloride 0.9% 250 ml @ 0.05 MCG/KG/MIN 8. 119 mls/hr IV .Q24H COUNT INCLUDES THE [facility] Rx#:[id number] Sodium Chloride 0.9% 50 25.908 40.188 ml @ 0.04 UNITS/MIN 6.12 mls/hr IVPB .Q8H20M [facility] with Vasopressin 20 unit Rx#:[id number] fentaNYL (PF) 2,500 mcg 141.297 87.611 In Sodium Chloride 0.9% 200 ml @ 2.5 MCG/KG/HR 22 .975 mls/hr IV .[id number] COUNT INCLUDES THE [facility] Rx#:[id number] propofoL 1,000 mg In 158.481 58.54 Empty Bag 1 bag @ Titrate IV .Q0M COUNT INCLUDES THE [facility] Rx#: [id number] Tube Feeding 0 Other 0 Output: Gastric Drainage 280 Urine 905 1860 ABP, PAP, CO, CI - Last Documented Arterial Blood Pressure 137/58 - Exam GENERAL EXAM: Revealed a 72-year-old white male intubated, mechanically ventilated, sedated, but not paralysis. HEAD: Normocephalic. Atraumatic. EYES: Normal reaction of pupils, equal size. NOSE: Clear with pink turbinates. THROAT: No erythema or exudates. Endotracheal tube and orogastric tube are intact. NECK: No masses, no JVD. CHEST: Symmetrical chest expansion, no deformity. LUNGS: Fine crackles at the bases. CVS: Irregular irregular rhythm. S1 and S2 normal with no audible murmur, regular rhythm. ABDOMEN: Urostomy on the left, ileostomy on the right, midline dressing dry and intact. SKIN: No rashes CENTRAL NERVOUS SYSTEM: Cannot assess, patient is fully sedated. On propofol and fentanyl. EXTREMITIES: Cannot assess - Labs CBC & Chem 7: 01/09/22 05:30 01/09/22 05:30 Labs: Abnormal Lab Results - Last 24 Hours (Table) 01/08/22 01/08/22 01/08/22 Range/Units 16:59 17:30 17:30 WBC 2.2 L (3.8-10.6) k/uL RBC 2.63 L (4.30-5.90) m/uL Hgb 8.5 L (13.0-17.5) gm/dL Hct 26.3 L (39.0-53.0) % MCV 100.2 H (80.0-100.0) fL RDW (11.5-15.5) % Plt Count 138 L (150-450) k/uL Lymphocytes # (Manual) (1.0-4.8) k/uL ABG pH (7.35-7.45) ABG pCO2 (35-45) mmHg ABG pO2 (83-108) mmHg ABG HCO3 (21-25) mmol/L ABG Total CO2 (19-24) mmol/L ABG O2 Saturation (94-97) % ABG Lactic Acid (0.5-1.6) mmol/L Chloride 111 H (98-107) mmol/L Carbon Dioxide 15 L (22-30) mmol/L BUN 56 H (9-20) mg/dL Creatinine 3.45 H (0.66-1.25) mg/dL Glucose 200 H (74-99) mg/dL POC Glucose (mg/dL) 180 H (75-99) mg/dL Plasma Lactic Acid Guero (0.7-2.0) mmol/L Calcium 7.6 L (8.4-10.2) mg/dL Phosphorus 6.5 H (2.5-4.5) mg/dL Magnesium 1.0 L (1.6-2.3) mg/dL Total Protein (6.3-8.2) g/dL Albumin (3.5-5.0) g/dL 01/08/22 01/08/22 01/08/22 Range/Units 17:30 18:50 21:12 WBC (3.8-10.6) k/uL RBC (4.30-5.90) m/uL Hgb (13.0-17.5) gm/dL Hct (39.0-53.0) % MCV (80.0-100.0) fL RDW (11.5-15.5) % Plt Count (150-450) k/uL Lymphocytes # (Manual) (1.0-4.8) k/uL ABG pH 7.29 L 7.20 L (7.35-7.45) ABG pCO2 62 H (35-45) mmHg ABG pO2 69 L 218 H (83-108) mmHg ABG HCO3 19 L (21-25) mmol/L ABG Total CO2 26 H (19-24) mmol/L ABG O2 Saturation 92.9 L 99.2 H (94-97) % ABG Lactic Acid 6.5 H* (0.5-1.6) mmol/L Chloride (98-107) mmol/L Carbon Dioxide (22-30) mmol/L BUN (9-20) mg/dL Creatinine (0.66-1.25) mg/dL Glucose (74-99) mg/dL POC Glucose (mg/dL) (75-99) mg/dL Plasma Lactic Acid Guero (0.7-2.0) mmol/L Calcium (8.4-10.2) mg/dL Phosphorus (2.5-4.5) mg/dL Magnesium (1.6-2.3) mg/dL Total Protein (6.3-8.2) g/dL Albumin (3.5-5.0) g/dL 01/08/22 01/09/22 01/09/22 Range/Units 21:23 00:01 05:30 WBC (3.8-10.6) k/uL RBC (4.30-5.90) m/uL Hgb (13.0-17.5) gm/dL Hct (39.0-53.0) % MCV (80.0-100.0) fL RDW (11.5-15.5) % Plt Count (150-450) k/uL Lymphocytes # (Manual) (1.0-4.8) k/uL ABG pH (7.35-7.45) ABG pCO2 (35-45) mmHg ABG pO2 (83-108) mmHg ABG HCO3 (21-25) mmol/L ABG Total CO2 (19-24) mmol/L ABG O2 Saturation (94-97) % ABG Lactic Acid (0.5-1.6) mmol/L Chloride 108 H (98-107) mmol/L Carbon Dioxide (22-30) mmol/L BUN 59 H (9-20) mg/dL Creatinine 3.15 H (0.66-1.25) mg/dL Glucose 224 H (74-99) mg/dL POC Glucose (mg/dL) 216 H (75-99) mg/dL Plasma Lactic Acid Guero 4.7 H* (0.7-2.0) mmol/L Calcium 7.4 L (8.4-10.2) mg/dL Phosphorus (2.5-4.5) mg/dL Magnesium (1.6-2.3) mg/dL Total Protein 4.7 L (6.3-8.2) g/dL Albumin 2.1 L (3.5-5.0) g/dL 01/09/22 01/09/22 01/09/22 Range/Units 05:30 05:38 06:03 WBC (3.8-10.6) k/uL RBC 2.79 L (4.30-5.90) m/uL Hgb 8.8 L (13.0-17.5) gm/dL Hct 27.5 L (39.0-53.0) % MCV (80.0-100.0) fL RDW 16.0 H (11.5-15.5) % Plt Count 135 L (150-450) k/uL Lymphocytes # (Manual) 0.30 L (1.0-4.8) k/uL ABG pH (7.35-7.45) ABG pCO2 46 H (35-45) mmHg ABG pO2 125 H (83-108) mmHg ABG HCO3 27 H (21-25) mmol/L ABG Total CO2 28 H (19-24) mmol/L ABG O2 Saturation 98.6 H (94-97) % ABG Lactic Acid (0.5-1.6) mmol/L Chloride (98-107) mmol/L Carbon Dioxide (22-30) mmol/L BUN (9-20) mg/dL Creatinine (0.66-1.25) mg/dL Glucose (74-99) mg/dL POC Glucose (mg/dL) 196 H (75-99) mg/dL Plasma Lactic Acid Guero (0.7-2.0) mmol/L Calcium (8.4-10.2) mg/dL Phosphorus (2.5-4.5) mg/dL Magnesium (1.6-2.3) mg/dL Total Protein (6.3-8.2) g/dL Albumin (3.5-5.0) g/dL 01/09/22 Range/Units 11:32 WBC (3.8-10.6) k/uL RBC (4.30-5.90) m/uL Hgb (13.0-17.5) gm/dL Hct (39.0-53.0) % MCV (80.0-100.0) fL RDW (11.5-15.5) % Plt Count (150-450) k/uL Lymphocytes # (Manual) (1.0-4.8) k/uL ABG pH (7.35-7.45) ABG pCO2 (35-45) mmHg ABG pO2 (83-108) mmHg ABG HCO3 (21-25) mmol/L ABG Total CO2 (19-24) mmol/L ABG O2 Saturation (94-97) % ABG Lactic Acid (0.5-1.6) mmol/L Chloride (98-107) mmol/L Carbon Dioxide (22-30) mmol/L BUN (9-20) mg/dL Creatinine (0.66-1.25) mg/dL Glucose (74-99) mg/dL POC Glucose (mg/dL) 176 H (75-99) mg/dL Plasma Lactic Acid Guero (0.7-2.0) mmol/L Calcium (8.4-10.2) mg/dL Phosphorus (2.5-4.5) mg/dL Magnesium (1.6-2.3) mg/dL Total Protein (6.3-8.2) g/dL Albumin (3.5-5.0) g/dL Microbiology - Last 24 Hours (Table) 01/07/22 23:30 Urine Culture - Final Urine,Voided 01/06/22 18:45 Blood Culture Gram Stain - Preliminary Blood Blood Culture - Preliminary Gram Neg Bacilli 01/07/22 18:30 Blood Culture Gram Stain - Preliminary Blood Blood Culture - Preliminary Pseudomonas aeruginosa Assessment and Plan Assessment: Impression: Acute hypoxic respiratory failure secondary to septic shock, secondary to Pseudomonas aeruginosa bacteremia, exact source is not clear, patient presented initially with strangulation of the small bowel with possible perforation and had small bowel and pneumobilia. Patient is status post exploratory laparotomy repair of strangulated parastomal hernia small bowel resection and ileostomy with repair of incisional hernia on 01/06/2022, postoperative day #3. Patient was intubated on 01/08/20, and remains intubated Pseudomonas aeruginosa bacteremia Hypotension secondary to septic shock Lactic acidosis secondary to sepsis and septic shock Acute kidney injury secondary to sepsis and septic shock, suspect acute tubular necrosis Hyperkalemia secondary to acute kidney injury and septic shock/hypotension History of bladder cancer with previous urostomy Type 2 diabetes. Dyslipidemia. Coronary artery disease and previous stent placement. Tobacco dependence syndrome. New onset atrial fibrillation that developed last night, patient was treated w ith amiodarone, he is presently in sinus rhythm. Being followed by cardiology. Recommendation: Continue ventilatory support. FiO2 was decreased down to 40% today. Continue hemodynamic support. Patient is presently on vasopressin and norepinephrine Continue sedation, patient is not ready for weaning. Continue antibiotics/Zosyn. Continue bicarb drip but cut down the dose. Nephrology is addressing his acute kidney injury Enteral feeding/nutritional support continue amiodarone. Continue subcu heparin Continue GI and DVT prophylaxis. Prognosis remains relatively poor and guarded. Patient is critically ill. Critical care time is over 30 minutes. . Time with Patient: Greater than 30
--- NOTE | 2022-01-09 12:41 | P.PN ---
Subjective Progress Note Date: 01/09/22 CHIEF COMPLAINT: Strangulated parastomal hernia HISTORY OF PRESENT ILLNESS: Patient is status post Exploratory laparotomy, Repair of strangulated parastomal hernia, Small bowel resection with ileostomy and Repair of incisional hernia. POD #3. Patient required to be intubated last night. He went into atrial fibrillation and had elevated respiratory rate. Patient's by cardiology. He is on amiodarone drip. Patient remains on a bicarb drip. Also requiring Levophed and vasopressin. He did receive multiple fluid boluses yesterday. Afebrile. WBC 3.8 hemoglobin 8.8 platelets 135 creatinine is 3.15 Patient seen and examined with Dr. allen PHYSICAL EXAM: VITAL SIGNS: Reviewed. GENERAL: Well-developed in no acute distress. HEENT: No sclera icterus. Extraocular movements grossly intact. Moist buccal mucosa. Head is atraumatic, normocephalic. ABDOMEN: Soft. Nondistended. Incisional site clean dry and intact. There is some dried blood noted on E incisional dressing. Ileostomy stoma pink. No stool present or air in bag. Urostomy's stoma less dusky. Urine is clearing. NEUROLOGIC: Alert and oriented. Cranial nerves II through XII grossly intact. ASSESSMENT: 1. Strangulated parastomal hernia and incisional hernia status post Exploratory laparotomy, Repair of strangulated parastomal hernia, Small bowel resection with ileostomy and Repair of incisional hernia 2. History of bladder cancer with urostomy 3. Hyperkalemia 4. Acute kidney injury 5. Sepsis and septic shock 6. Bacteremia with Pseudomonas 7. New onset of A. fib PLAN: -Continue ICU management -Continue supportive care -Continue antibiotics per ID -Continue IV fluids -DVT prophylaxis subcu heparin and GI prophylaxis Protonix Physician [employer] note has been reviewed by physician. Signing provider agrees with the documented findings, assessment, and plan of care. Objective - Vital Signs Vital signs: Vital Signs Temp 99 F 01/09/22 04:00 Pulse 99 01/09/22 11:27 Resp 20 01/09/22 07:00 BP 123/61 01/09/22 04:00 Pulse Ox 100 01/09/22 07:00 Intake & Output 01/08/22 01/09/22 01/09/22 18:59 06:59 18:59 Intake Total 9401.286 8218.672 251.631 Output Total 905 2140 Balance 100.516 -140.328 251.631 Weight 95.3 kg Intake: IV 725 1300 Dextrose 5% in Water 1, 500 1200 000 ml @ 100 mls/hr IV . [id number] [facility] with Sodium Bicarb (1 Meq/ml) 150 ml Rx#:[id number] Piperacillin-Tazobactam 3 100 100 .375 gm In Sodium Chloride 0.9% 100 ml @ 25 mls/hr IVPB Q12HR [facility] Rx #:[id number] Sodium Chloride 0.9% 1, 125 000 ml @ 125 mls/hr IV . Q8H [facility] Rx#:[id number] Intake, IV Titration 280.516 699.672 251.631 Amount Norepinephrine 32 mg In 138.502 65.292 Sodium Chloride 0.9% 218 ml @ 0.44 MCG/KG/MIN 18. 954 mls/hr IV .[id number] [facility] Rx#:[id number] Norepinephrine 8 mg In 280.516 235.484 Sodium Chloride 0.9% 250 ml @ 0.05 MCG/KG/MIN 8. 119 mls/hr IV .Q24H [facility] Rx#:[id number] Sodium Chloride 0.9% 50 25.908 40.188 ml @ 0.04 UNITS/MIN 6.12 mls/hr IVPB .Q8H20M [facility] with Vasopressin 20 unit Rx#:[id number] fentaNYL (PF) 2,500 mcg 141.297 87.611 In Sodium Chloride 0.9% 200 ml @ 2.5 MCG/KG/HR 22 .975 mls/hr IV .[id number] [facility] Rx#:[id number] propofoL 1,000 mg In 158.481 58.54 Empty Bag 1 bag @ Titrate IV .Q0M [facility] Rx#: [id number] Tube Feeding 0 Other 0 Output: Gastric Drainage 280 Urine 905 1860 ABP, PAP, CO, CI - Last Documented Arterial Blood Pressure 137/58 - Labs CBC & Chem 7: 01/09/22 05:30 01/09/22 05:30 Labs: Abnormal Lab Results - Last 24 Hours (Table) 01/08/22 01/08/22 01/08/22 Range/Units 16:59 17:30 17:30 WBC 2.2 L (3.8-10.6) k/uL RBC 2.63 L (4.30-5.90) m/uL Hgb 8.5 L (13.0-17.5) gm/dL Hct 26.3 L (39.0-53.0) % MCV 100.2 H (80.0-100.0) fL RDW (11.5-15.5) % Plt Count 138 L (150-450) k/uL Lymphocytes # (Manual) (1.0-4.8) k/uL ABG pH (7.35-7.45) ABG pCO2 (35-45) mmHg ABG pO2 (83-108) mmHg ABG HCO3 (21-25) mmol/L ABG Total CO2 (19-24) mmol/L ABG O2 Saturation (94-97) % ABG Lactic Acid (0.5-1.6) mmol/L Chloride 111 H (98-107) mmol/L Carbon Dioxide 15 L (22-30) mmol/L BUN 56 H (9-20) mg/dL Creatinine 3.45 H (0.66-1.25) mg/dL Glucose 200 H (74-99) mg/dL POC Glucose (mg/dL) 180 H (75-99) mg/dL Plasma Lactic Acid Guero (0.7-2.0) mmol/L Calcium 7.6 L (8.4-10.2) mg/dL Phosphorus 6.5 H (2.5-4.5) mg/dL Magnesium 1.0 L (1.6-2.3) mg/dL Total Protein (6.3-8.2) g/dL Albumin (3.5-5.0) g/dL 01/08/22 01/08/22 01/08/22 Range/Units 17:30 18:50 21:12 WBC (3.8-10.6) k/uL RBC (4.30-5.90) m/uL Hgb (13.0-17.5) gm/dL Hct (39.0-53.0) % MCV (80.0-100.0) fL RDW (11.5-15.5) % Plt Count (150-450) k/uL Lymphocytes # (Manual) (1.0-4.8) k/uL ABG pH 7.29 L 7.20 L (7.35-7.45) ABG pCO2 62 H (35-45) mmHg ABG pO2 69 L 218 H (83-108) mmHg ABG HCO3 19 L (21-25) mmol/L ABG Total CO2 26 H (19-24) mmol/L ABG O2 Saturation 92.9 L 99.2 H (94-97) % ABG Lactic Acid 6.5 H* (0.5-1.6) mmol/L Chloride (98-107) mmol/L Carbon Dioxide (22-30) mmol/L BUN (9-20) mg/dL Creatinine (0.66-1.25) mg/dL Glucose (74-99) mg/dL POC Glucose (mg/dL) (75-99) mg/dL Plasma Lactic Acid Guero (0.7-2.0) mmol/L Calcium (8.4-10.2) mg/dL Phosphorus (2.5-4.5) mg/dL Magnesium (1.6-2.3) mg/dL Total Protein (6.3-8.2) g/dL Albumin (3.5-5.0) g/dL 01/08/22 01/09/22 01/09/22 Range/Units 21:23 00:01 05:30 WBC (3.8-10.6) k/uL RBC (4.30-5.90) m/uL Hgb (13.0-17.5) gm/dL Hct (39.0-53.0) % MCV (80.0-100.0) fL RDW (11.5-15.5) % Plt Count (150-450) k/uL Lymphocytes # (Manual) (1.0-4.8) k/uL ABG pH (7.35-7.45) ABG pCO2 (35-45) mmHg ABG pO2 (83-108) mmHg ABG HCO3 (21-25) mmol/L ABG Total CO2 (19-24) mmol/L ABG O2 Saturation (94-97) % ABG Lactic Acid (0.5-1.6) mmol/L Chloride 108 H (98-107) mmol/L Carbon Dioxide (22-30) mmol/L BUN 59 H (9-20) mg/dL Creatinine 3.15 H (0.66-1.25) mg/dL Glucose 224 H (74-99) mg/dL POC Glucose (mg/dL) 216 H (75-99) mg/dL Plasma Lactic Acid Guero 4.7 H* (0.7-2.0) mmol/L Calcium 7.4 L (8.4-10.2) mg/dL Phosphorus (2.5-4.5) mg/dL Magnesium (1.6-2.3) mg/dL Total Protein 4.7 L (6.3-8.2) g/dL Albumin 2.1 L (3.5-5.0) g/dL 01/09/22 01/09/22 01/09/22 Range/Units 05:30 05:38 06:03 WBC (3.8-10.6) k/uL RBC 2.79 L (4.30-5.90) m/uL Hgb 8.8 L (13.0-17.5) gm/dL Hct 27.5 L (39.0-53.0) % MCV (80.0-100.0) fL RDW 16.0 H (11.5-15.5) % Plt Count 135 L (150-450) k/uL Lymphocytes # (Manual) 0.30 L (1.0-4.8) k/uL ABG pH (7.35-7.45) ABG pCO2 46 H (35-45) mmHg ABG pO2 125 H (83-108) mmHg ABG HCO3 27 H (21-25) mmol/L ABG Total CO2 28 H (19-24) mmol/L ABG O2 Saturation 98.6 H (94-97) % ABG Lactic Acid (0.5-1.6) mmol/L Chloride (98-107) mmol/L Carbon Dioxide (22-30) mmol/L BUN (9-20) mg/dL Creatinine (0.66-1.25) mg/dL Glucose (74-99) mg/dL POC Glucose (mg/dL) 196 H (75-99) mg/dL Plasma Lactic Acid Guero (0.7-2.0) mmol/L Calcium (8.4-10.2) mg/dL Phosphorus (2.5-4.5) mg/dL Magnesium (1.6-2.3) mg/dL Total Protein (6.3-8.2) g/dL Albumin (3.5-5.0) g/dL 01/09/22 Range/Units 11:32 WBC (3.8-10.6) k/uL RBC (4.30-5.90) m/uL Hgb (13.0-17.5) gm/dL Hct (39.0-53.0) % MCV (80.0-100.0) fL RDW (11.5-15.5) % Plt Count (150-450) k/uL Lymphocytes # (Manual) (1.0-4.8) k/uL ABG pH (7.35-7.45) ABG pCO2 (35-45) mmHg ABG pO2 (83-108) mmHg ABG HCO3 (21-25) mmol/L ABG Total CO2 (19-24) mmol/L ABG O2 Saturation (94-97) % ABG Lactic Acid (0.5-1.6) mmol/L Chloride (98-107) mmol/L Carbon Dioxide (22-30) mmol/L BUN (9-20) mg/dL Creatinine (0.66-1.25) mg/dL Glucose (74-99) mg/dL POC Glucose (mg/dL) 176 H (75-99) mg/dL Plasma Lactic Acid Guero (0.7-2.0) mmol/L Calcium (8.4-10.2) mg/dL Phosphorus (2.5-4.5) mg/dL Magnesium (1.6-2.3) mg/dL Total Protein (6.3-8.2) g/dL Albumin (3.5-5.0) g/dL Microbiology - Last 24 Hours (Table) 01/07/22 23:30 Urine Culture - Final Urine,Voided 01/06/22 18:45 Blood Culture Gram Stain - Preliminary Blood Blood Culture - Preliminary Gram Neg Bacilli 01/07/22 18:30 Blood Culture Gram Stain - Preliminary Blood Blood Culture - Preliminary Pseudomonas aeruginosa
--- NOTE | 2022-01-09 16:49 | P.PN ---
Subjective Progress Note Date: 01/09/22 Xavier Langford is a 72 yo M with PMH of bladder cancer s/p cystectomy and urostomy, CAD, T2DM, who presented to the ED complaining of worsening abdominal pain and distention. CT on presentation showed large parastomal hernia obstructing his ileal conduit and concern for strangulation and possible perforation. Initial WBC 12.2. Hemoglobin 10.4. Sodium 138. Potassium 4.8. BUN 47. Creatinine 3.17. Glucose 252. Plasma lactic acid 2.2, trop negative. Pt underwent exploratory laparotomy, repair of strangulated parastomal hernia, small bowel resection with ileostomy, repair of incisional hernia. Today his labs reflect drop in WBC to 2.6, Potassium 6.1, Cr 3.8. Blood cultures preliminary revealing gram-negative bacilli. 01/08/22 Tachycardic, heart rates in the 120s to 130s, tachypneic.Maintained on Zo syn, blood culture reporting pseudomonas aeruginosa . Urine culture pending. Currently afebrile. Maintaining O2 sats in the high 90s on 2 L nasal cannula.Maintained on IV fluid hydration, and Levophed. Good urine output. Creatinine decreased to 3.65. ABGs reflecting metabolic acidosis, bicarb drip initiated. Complains of abdominal pain, greater on the right. Blood sugars controlled on low-dose Levemir. 01/09/2022 Developed atrial fibrillation with RVR in addition to respiratory distress requiring intubation and antiarrhythmics last night. Currently on FiO2 40%/+8 of PEEP. Maintained on fentanyl, bicarb, diprovan, amiodarone, vasopressin and the Levophed drips. Telemetry currently sinus rhythm .Continues on Zosyn for Pseudomonas bacteremia. Urine cultures negative. Sputum culture pending. Multiple fluid boluses yesterday, chest x-ray this morning reporting possible pneumonia, CHF, interstitial lung disease. Afebrile, T-max 99.4, normal WBC. Hemoglobin 8.8, platelets 135. Creatinine trending down, 3.15,Magnesium 1.6, nephrology following. Objective - Vital Signs Vital signs: Vital Signs Temp 98.6 F 01/09/22 12:00 Pulse 104 H 01/09/22 15:13 Resp 20 01/09/22 14:00 BP 123/61 01/09/22 04:00 Pulse Ox 98 01/09/22 14:00 Intake & Output 01/08/22 01/09/22 01/09/22 18:59 06:59 18:59 Intake Total 2362.840 6786.672 317.865 Output Total 905 2140 Balance 100.516 -140.328 317.865 Weight 95.3 kg Intake: IV 725 1300 Dextrose 5% in Water 1, 500 1200 000 ml @ 100 mls/hr IV . [id number] [facility] with Sodium Bicarb (1 Meq/ml) 150 ml Rx#:[id number] Piperacillin-Tazobactam 3 100 100 .375 gm In Sodium Chloride 0.9% 100 ml @ 25 mls/hr IVPB Q12HR COUNTS INCLUDE 234 BEDS AT [facility] Rx #:[id number] Sodium Chloride 0.9% 1, 125 000 ml @ 125 mls/hr IV . Q8H COUNTS INCLUDE 234 BEDS AT [facility] Rx#:[id number] Intake, IV Titration 280.516 699.672 317.865 Amount Norepinephrine 32 mg In 138.502 126.936 Sodium Chloride 0.9% 218 ml @ 0.44 MCG/KG/MIN 18. 954 mls/hr IV .[id number] COUNTS INCLUDE 234 BEDS AT [facility] Rx#:[id number] Norepinephrine 8 mg In 280.516 235.484 Sodium Chloride 0.9% 250 ml @ 0.05 MCG/KG/MIN 8. 119 mls/hr IV .Q24H COUNTS INCLUDE 234 BEDS AT [facility] Rx#:[id number] Sodium Chloride 0.9% 50 25.908 44.778 ml @ 0.04 UNITS/MIN 6.12 mls/hr IVPB .Q8H20M COUNTS INCLUDE 234 BEDS AT [facility] with Vasopressin 20 unit Rx#:[id number] fentaNYL (PF) 2,500 mcg 141.297 87.611 In Sodium Chloride 0.9% 200 ml @ 2.5 MCG/KG/HR 22 .975 mls/hr IV .[id number] COUNTS INCLUDE 234 BEDS AT [facility] Rx#:[id number] propofoL 1,000 mg In 158.481 58.54 Empty Bag 1 bag @ Titrate IV .Q0M COUNTS INCLUDE 234 BEDS AT [facility] Rx#: [id number] Tube Feeding 0 Other 0 Output: Gastric Drainage 280 Urine 905 1860 ABP, PAP, CO, CI - Last Documented Arterial Blood Pressure 127/50 - Exam General: Intubated and sedated Eyes: PERRL, EOMI, conjunctiva normal HENT: normocephalic, atraumatic Neck: supple, no JVD Lungs: normal respiratory effort, no wheezes CV: Regular rate and rhythm, less tachycardic, no murmur. Peripheral pulses 2+ Abdomen: soft. generalized tenderness. RLQ ileostomy good urine output Skin: warm and dry. - Labs CBC & Chem 7: 01/09/22 05:30 01/09/22 05:30 Labs: Abnormal Lab Results - Last 24 Hours (Table) 01/08/22 01/08/22 01/08/22 Range/Units 16:59 17:30 17:30 WBC 2.2 L (3.8-10.6) k/uL RBC 2.63 L (4.30-5.90) m/uL Hgb 8.5 L (13.0-17.5) gm/dL Hct 26.3 L (39.0-53.0) % MCV 100.2 H (80.0-100.0) fL RDW (11.5-15.5) % Plt Count 138 L (150-450) k/uL Lymphocytes # (Manual) (1.0-4.8) k/uL ABG pH (7.35-7.45) ABG pCO2 (35-45) mmHg ABG pO2 (83-108) mmHg ABG HCO3 (21-25) mmol/L ABG Total CO2 (19-24) mmol/L ABG O2 Saturation (94-97) % ABG Lactic Acid (0.5-1.6) mmol/L Chloride 111 H (98-107) mmol/L Carbon Dioxide 15 L (22-30) mmol/L BUN 56 H (9-20) mg/dL Creatinine 3.45 H (0.66-1.25) mg/dL Glucose 200 H (74-99) mg/dL POC Glucose (mg/dL) 180 H (75-99) mg/dL Plasma Lactic Acid Guero (0.7-2.0) mmol/L Calcium 7.6 L (8.4-10.2) mg/dL Phosphorus 6.5 H (2.5-4.5) mg/dL Magnesium 1.0 L (1.6-2.3) mg/dL Total Protein (6.3-8.2) g/dL Albumin (3.5-5.0) g/dL 01/08/22 01/08/22 01/08/22 Range/Units 17:30 18:50 21:12 WBC (3.8-10.6) k/uL RBC (4.30-5.90) m/uL Hgb (13.0-17.5) gm/dL Hct (39.0-53.0) % MCV (80.0-100.0) fL RDW (11.5-15.5) % Plt Count (150-450) k/uL Lymphocytes # (Manual) (1.0-4.8) k/uL ABG pH 7.29 L 7.20 L (7.35-7.45) ABG pCO2 62 H (35-45) mmHg ABG pO2 69 L 218 H (83-108) mmHg ABG HCO3 19 L (21-25) mmol/L ABG Total CO2 26 H (19-24) mmol/L ABG O2 Saturation 92.9 L 99.2 H (94-97) % ABG Lactic Acid 6.5 H* (0.5-1.6) mmol/L Chloride (98-107) mmol/L Carbon Dioxide (22-30) mmol/L BUN (9-20) mg/dL Creatinine (0.66-1.25) mg/dL Glucose (74-99) mg/dL POC Glucose (mg/dL) (75-99) mg/dL Plasma Lactic Acid Guero (0.7-2.0) mmol/L Calcium (8.4-10.2) mg/dL Phosphorus (2.5-4.5) mg/dL Magnesium (1.6-2.3) mg/dL Total Protein (6.3-8.2) g/dL Albumin (3.5-5.0) g/dL 01/08/22 01/09/22 01/09/22 Range/Units 21:23 00:01 05:30 WBC (3.8-10.6) k/uL RBC (4.30-5.90) m/uL Hgb (13.0-17.5) gm/dL Hct (39.0-53.0) % MCV (80.0-100.0) fL RDW (11.5-15.5) % Plt Count (150-450) k/uL Lymphocytes # (Manual) (1.0-4.8) k/uL ABG pH (7.35-7.45) ABG pCO2 (35-45) mmHg ABG pO2 (83-108) mmHg ABG HCO3 (21-25) mmol/L ABG Total CO2 (19-24) mmol/L ABG O2 Saturation (94-97) % ABG Lactic Acid (0.5-1.6) mmol/L Chloride 108 H (98-107) mmol/L Carbon Dioxide (22-30) mmol/L BUN 59 H (9-20) mg/dL Creatinine 3.15 H (0.66-1.25) mg/dL Glucose 224 H (74-99) mg/dL POC Glucose (mg/dL) 216 H (75-99) mg/dL Plasma Lactic Acid Guero 4.7 H* (0.7-2.0) mmol/L Calcium 7.4 L (8.4-10.2) mg/dL Phosphorus (2.5-4.5) mg/dL Magnesium (1.6-2.3) mg/dL Total Protein 4.7 L (6.3-8.2) g/dL Albumin 2.1 L (3.5-5.0) g/dL 01/09/22 01/09/22 01/09/22 Range/Units 05:30 05:38 06:03 WBC (3.8-10.6) k/uL RBC 2.79 L (4.30-5.90) m/uL Hgb 8.8 L (13.0-17.5) gm/dL Hct 27.5 L (39.0-53.0) % MCV (80.0-100.0) fL RDW 16.0 H (11.5-15.5) % Plt Count 135 L (150-450) k/uL Lymphocytes # (Manual) 0.30 L (1.0-4.8) k/uL ABG pH (7.35-7.45) ABG pCO2 46 H (35-45) mmHg ABG pO2 125 H (83-108) mmHg ABG HCO3 27 H (21-25) mmol/L ABG Total CO2 28 H (19-24) mmol/L ABG O2 Saturation 98.6 H (94-97) % ABG Lactic Acid (0.5-1.6) mmol/L Chloride (98-107) mmol/L Carbon Dioxide (22-30) mmol/L BUN (9-20) mg/dL Creatinine (0.66-1.25) mg/dL Glucose (74-99) mg/dL POC Glucose (mg/dL) 196 H (75-99) mg/dL Plasma Lactic Acid Guero (0.7-2.0) mmol/L Calcium (8.4-10.2) mg/dL Phosphorus (2.5-4.5) mg/dL Magnesium (1.6-2.3) mg/dL Total Protein (6.3-8.2) g/dL Albumin (3.5-5.0) g/dL 01/09/22 Range/Units 11:32 WBC (3.8-10.6) k/uL RBC (4.30-5.90) m/uL Hgb (13.0-17.5) gm/dL Hct (39.0-53.0) % MCV (80.0-100.0) fL RDW (11.5-15.5) % Plt Count (150-450) k/uL Lymphocytes # (Manual) (1.0-4.8) k/uL ABG pH (7.35-7.45) ABG pCO2 (35-45) mmHg ABG pO2 (83-108) mmHg ABG HCO3 (21-25) mmol/L ABG Total CO2 (19-24) mmol/L ABG O2 Saturation (94-97) % ABG Lactic Acid (0.5-1.6) mmol/L Chloride (98-107) mmol/L Carbon Dioxide (22-30) mmol/L BUN (9-20) mg/dL Creatinine (0.66-1.25) mg/dL Glucose (74-99) mg/dL POC Glucose (mg/dL) 176 H (75-99) mg/dL Plasma Lactic Acid Guero (0.7-2.0) mmol/L Calcium (8.4-10.2) mg/dL Phosphorus (2.5-4.5) mg/dL Magnesium (1.6-2.3) mg/dL Total Protein (6.3-8.2) g/dL Albumin (3.5-5.0) g/dL Microbiology - Last 24 Hours (Table) 01/06/22 18:45 Blood Culture Gram Stain - Final Blood Blood Culture - Final Pseudomonas aeruginosa 01/07/22 18:30 Blood Culture Gram Stain - Final Blood Blood Culture - Final Pseudomonas aeruginosa 01/07/22 23:30 Urine Culture - Final Urine,Voided Assessment and Plan Assessment: Septic shock secondary to Pseudomonas bacteremia, etiology unclear, suspect abdomen Acute hypoxic respiratory failure secondary to the above Pseudomonas Bacteremia Hypotension, secondary to septic shock, pressor dependent Acute renal failure secondary to septic shock, hypotension Atrial fibrillation with RVR, new onset-suspect related to septic shock and bacteremia, currently sinus rhythm Hyperkalemia secondary to the above Labs acidosis secondary to septic shock with bacteremia Metabolic acidosis secondary to acute renal failure, currently on bicarb drip Incarcerated hernia status post colostomy creation Diabetes mellitus type 2 History of bladder cancer with previous urostomy Plan: Continue on current medication regime ,monitoring and symptomatic treatment. Antiarrhythmics/anticoagulation as per cardiology, antibiotics as per ID, ICU management as per head loader. Prognosis guarded given multiple complex medical issues. The impression and plan of care has been dictated as directed. : I performed a history and examination of this patient, discussed the same with the dictator. I agree with the dictator's note ,documented as a scribe. Any additional findings or plans will be noted.
[2022-01-09 17:26] LABS: Glucose,Whole Blood 141 mg/dL (75-99)
[2022-01-09] MEDS ORDERED: fentaNYL (PF) 2,500 MCG in SODIUM CHLORIDE 0.9% 200 ML IV SCH (20:00)
[2022-01-09 23:10] LABS: Glucose,Whole Blood 75 mg/dL (75-99)
[2022-01-10] MEDS: INSULIN ASPART (NovoLOG) 100 UNIT/ML VIAL SQ SCH ×5 (00:18→23:40)
[2022-01-10] MEDS: SODIUM CHLORIDE 0.9% 50 ML with VASOPRESSIN 20 UNIT IVPB SCH ×6 (02:43→20:54)
[2022-01-10 04:24] LABS: Anisocytosis Slight; HCT 25.3 % (39.0-53.0); HGB 8.6 gm/dL (13.0-17.5); MCH 32.5 pg (25.0-35.0); MCV 95.6 fL (80.0-100.0); Mean Platelet Volume 8.5; RBC 2.65 m/uL (4.30-5.90); RDW 16.1 % (11.5-15.5); WBC 4.5 k/uL (3.8-10.6)
[2022-01-10 04:51] LABS: Calcium 7.7 mg/dL (8.4-10.2); Magnesium 1.9 mg/dL (1.6-2.3); Platelet Count 98 k/uL (150-450); Potassium 3.6 mmol/L (3.5-5.1); Total Bilirubin 0.7 mg/dL (0.2-1.3); Total Protein 4.5 g/dL (6.3-8.2)
[2022-01-10 05:01] LABS: Band Neutrophils % 10 %; Dohle Bodies Present; Eosinophils # (M) 0.09 k/uL (0-0.7); Lymphocytes # (M) 0.32 k/uL (1.0-4.8); Monocytes # (M) 0.09 k/uL (0-1.0); Neutrophils % (M) 79 %; Nucleated Red Blood Cells 0 /100 WBC (0-0); Total Cells Counted 100; Toxic Granulation Present
[2022-01-10 05:36] LABS: ABG Base Excess 5.9 mmol/L; ABG HCO3 31 mmol/L (21-25); ABG Oxygen Saturation 97.9 % (94-97); ABG PCO2 45 mmHg (35-45); ABG PH 7.45 (7.35-7.45); ABG PO2 106 mmHg (83-108); Allen Test Performed? Yes
[2022-01-10 05:37] LABS: Glucose,Whole Blood 80 mg/dL (75-99)
[2022-01-10] MEDS ORDERED: Magnesium Replacement Protocol 1 EACH MISC MISCELLANE PRN (06:50)
[2022-01-10] MEDS: NOREPINEPHRINE 32 MG in SODIUM CHLORIDE 0.9% 218 ML IV SCH ×2 (06:57→17:51)
[2022-01-10] MEDS: INSULIN DETEMIR (LEVEMIR) 100 UNIT/ML SYR SQ SCH (07:08)
[2022-01-10] MEDS: IPRATROPIUM-ALBUTEROL 3 ML NEB INHALATION SCH ×4 (08:29→20:17)
[2022-01-10] MEDS: DEXTROSE 5% IN WATER 1,000 ML with SODIUM BICARB (1 MEQ/ML) 150 ML IV SCH (08:36)
[2022-01-10] MEDS: fentaNYL (PF) 2,500 MCG in SODIUM CHLORIDE 0.9% 200 ML IV SCH ×3 (08:37→18:39)
[2022-01-10] MEDS: PANTOPRAZOLE 40 MG/10 ML VIAL IVP SCH (08:55)
[2022-01-10] MEDS: PIPERACILLIN-TAZOBACTAM 3.375 GM in SODIUM CHLORIDE 0.9% 100 ML IVPB SCH (08:55)
[2022-01-10] MEDS: CHLORHEXIDINE GLUCONATE 15 ML CUP MUCOUS MEM SCH ×2 (08:55→19:48)
[2022-01-10] MEDS: MAGNESIUM SULFATE-D5W PMX 1 GM in DEXTROSE/WATER 1 100ML.BAG IVPB SCH ×2 (08:56→11:05)
--- NOTE | 2022-01-10 09:02 | XR ---
EXAMINATION TYPE: XR chest 1V portable DATE OF EXAM: 01/10/2022 COMPARISON: 01/09/2022 HISTORY: Tube placement FINDINGS: There are bilateral pleural effusions with cardiomegaly and bibasilar infiltrate. There is a diffuse interstitial pattern. ET and NG tube stable. Right-sided central line overlying the right atrium. Hy perinflation may been the basis of COPD. Hypertrophic and degenerative change of the spine and arthro melia shoulders. Atherosclerotic change aorta. IMPRESSION: 1. Bilateral infiltrate and pleural effusion stable. Correlate for CHF superimposed on a background o f chronic interstitial pulmonary fibrosis and COPD. Underlying pneumonia not excluded.
--- NOTE | 2022-01-10 09:03 | P.PN ---
Subjective HISTORY OF PRESENTING ILLNESS Patient is pleasant 72-year-old male with history of CAD with prior PCI, diabetes mellitus type 2, hypertension, hyperlipidemia, BPH, tobacco abuse, bladder cancer with urostomy. Patient had presented to the hospital with abdominal pain and distention and computed tomography scan showed hernia with small bowel perforation and therefore underwent exploratory laparotomy. Since then patient was found to be septic with Pseudomonas bacteremia as well as acute kidney injury. Patient has been having worsened respiratory distress yesterday and eventually intubated. He has had sinus tachycardia throughout his hospit alization with heart rates in the 120s however yesterday went into A. fib with RVR with heart rates in the 130s to 150s. Patient was placed on amiodarone drip and currently this morning is in sinus rhythm with frequent PVCs and PACs. 01/10 Patient seen and examined. Patient remains intubated and sedated. No further episodes of A. fib however frequent PACs and PVCs. No anticoagulation given rec ent surgery. Remains on pressors for septic shock. REVIEW OF SYSTEMS Unable to exam secondary to intubated and sedated PHYSICAL EXAMINATION Vital signs reviewed. CONSTITUTIONAL: No apparent distress, ill appearing, sedated on vent HEENT: Head is normocephalic. Pupils are equal, round. Sclerae anicteric. Mucous membranes of the mouth are moist. No JVD. No carotid bruit. CHEST EXAMINATION: Lungs are clear to auscultation. No chest wall tenderness is noted on palpation or with deep breathing. HEART EXAMINATION: Regular rate and rhythm. S1, S2 heard. No murmurs, gallops or rub. ABDOMEN: Soft, nontender. Positive bowel sounds. EXTREMITIES: 2+ peripheral pulses, no lower extremity edema and no calf tenderness. NEUROLOGIC EXAMINATION: Patient is sedated and intubated ASSESSMENT 1. New-onset atrial fibrillation, currently sinus rhythm s/p amio for 24 hrs 2. Status post small bowel perforation and exploratory laparotomy with repair of strangulated hernia 3. Pseudomonas bacteremia 4. Septic shock on vasopressors 5. Acute kidney injury 6. Hyperkalemia 7. Coronary artery disease with prior history of PCI 8. Diabetes mellitus type 2 9. Tobacco abuse 10. Anemia Plan: Patient with new onset atrial fibrillation likely exacerbated by sepsis and bacteremia and metabolic disturbances. Continue to monitor rhythm however currently sinus rhythm with frequent PACs. Await 2-D echo. Continue supportive care for septic shock. Ideally place patient back on antiplatelets and anticoagulation however we will continue to monitor after surgery. Prognosis guarded. Objective - Vital Signs Vital signs: Vital Signs Temp 99.8 F H 01/10/22 08:00 Pulse 92 01/10/22 08:39 Resp 22 01/10/22 08:15 BP 135/70 01/10/22 08:15 Pulse Ox 97 01/10/22 08:15 Intake & Output 01/09/22 01/10/22 01/10/22 18:59 06:59 18:59 Intake Total 4804.699 1361.856 302.294 Output Total 1205 1150 115 Balance 119.083 124.856 187.294 Weight 95.2 kg Intake: IV 650 600 100 Dextrose 5% in Water 1, 550 600 100 000 ml @ 50 mls/hr IV . Q23H [facility] with Sodium Bicarb (1 Meq/ml) 150 ml Rx#:[id number] Piperacillin-Tazobactam 3 100 .375 gm In Sodium Chloride 0.9% 100 ml @ 25 mls/hr IVPB Q12HR [facility] Rx #:[id number] Intake, IV Titration 674.083 674.856 202.294 Amount Amiodarone 450 mg In 214.449 Dextrose 5% in Water 250 ml @ 0.5 MG/MIN 16.667 mls/hr IV .Q15H [facility] Rx#: [id number] Norepinephrine 32 mg In 126.936 187.6 19.413 Sodium Chloride 0.9% 218 ml @ 0.44 MCG/KG/MIN 18. 954 mls/hr IV .[id number] [facility] Rx#:[id number] Sodium Chloride 0.9% 50 86.547 37.256 ml @ 0.04 UNITS/MIN 6.12 mls/hr IVPB .Q8H20M [facility] with Vasopressin 20 unit Rx#:[id number] fentaNYL (PF) 2,500 mcg 87.611 250 182.881 In Sodium Chloride 0.9% 200 ml @ 2.5 MCG/KG/HR 22 .975 mls/hr IV .[id number] [facility] Rx#:[id number] propofoL 1,000 mg In 158.54 200 Empty Bag 1 bag @ Titrate IV .Q0M [facility] Rx#: [id number] Output: Urine 1205 1150 115 ABP, PAP, CO, CI - Last Documented Arterial Blood Pressure 133/50 - Labs CBC & Chem 7: 01/10/22 03:58 01/10/22 03:58 Labs: Abnormal Lab Results - Last 24 Hours (Table) 01/09/22 01/09/22 01/10/22 Range/Units 11:32 17:24 03:58 RBC 2.65 L (4.30-5.90) m/uL Hgb 8.6 L (13.0-17.5) gm/dL Hct 25.3 L (39.0-53.0) % RDW 16.1 H (11.5-15.5) % Plt Count 98 L (150-450) k/uL Lymphocytes # (Manual) 0.32 L (1.0-4.8) k/uL ABG HCO3 (21-25) mmol/L ABG O2 Saturation (94-97) % Carbon Dioxide (22-30) mmol/L BUN (9-20) mg/dL Creatinine (0.66-1.25) mg/dL POC Glucose (mg/dL) 176 H 141 H (75-99) mg/dL Calcium (8.4-10.2) mg/dL Total Protein (6.3-8.2) g/dL Albumin (3.5-5.0) g/dL 01/10/22 01/10/22 Range/Units 03:58 05:45 RBC (4.30-5.90) m/uL Hgb (13.0-17.5) gm/dL Hct (39.0-53.0) % RDW (11.5-15.5) % Plt Count (150-450) k/uL Lymphocytes # (Manual) (1.0-4.8) k/uL ABG HCO3 31 H (21-25) mmol/L ABG O2 Saturation 97.9 H (94-97) % Carbon Dioxide 31 H (22-30) mmol/L BUN 58 H (9-20) mg/dL Creatinine 2.72 H (0.66-1.25) mg/dL POC Glucose (mg/dL) (75-99) mg/dL Calcium 7.7 L (8.4-10.2) mg/dL Total Protein 4.5 L (6.3-8.2) g/dL Albumin 2.0 L (3.5-5.0) g/dL Microbiology - Last 24 Hours (Table) 01/09/22 00:00 Sputum Culture - Preliminary Sputum 01/06/22 18:45 Blood Culture Gram Stain - Final Blood Blood Culture - Final Pseudomonas aeruginosa 01/07/22 18:30 Blood Culture Gram Stain - Final Blood Blood Culture - Final Pseudomonas aeruginosa 01/07/22 23:30 Urine Culture - Final Urine,Voided
[2022-01-10] MEDS: HEPARIN SODIUM,PORCINE/PF 5,000 UNIT/0.5 ML SYRINGE SQ SCH ×2 (10:09→19:48)
[2022-01-10 11:38] LABS: Glucose,Whole Blood 133 mg/dL (75-99)
[2022-01-10 12:18] LABS: Ionized Calcium 4.3 mg/dL (4.5-5.3)
[2022-01-10 12:31] LABS: Phosphorus 4.5 mg/dL (2.5-4.5)
--- NOTE | 2022-01-10 13:19 | P.PN ---
Subjective Progress Note Date: 01/10/22 Xavier Langford is a 72 yo M with PMH of bladder cancer s/p cystectomy and urostomy, CAD, T2DM, who presented to the ED complaining of worsening abdominal pain and distention. CT on presentation showed large parastomal hernia obstructing his ileal conduit and concern for strangulation and possible perforation. Initial WBC 12.2. Hemoglobin 10.4. Sodium 138. Potassium 4.8. BUN 47. Creatinine 3.17. Glucose 252. Plasma lactic acid 2.2, trop negative. Pt underwent exploratory laparotomy, repair of strangulated parastomal hernia, small bowel resection with ileostomy, repair of incisional hernia. Today his labs reflect drop in WBC to 2.6, Potassium 6.1, Cr 3.8. Blood cultures preliminary revealing gram-negative bacilli. 01/08/22 Tachycardic, heart rates in the 120s to 130s, tachypneic.Maintained on Zo syn, blood culture reporting pseudomonas aeruginosa . Urine culture pending. Currently afebrile. Maintaining O2 sats in the high 90s on 2 L nasal cannula.Maintained on IV fluid hydration, and Levophed. Good urine output. Creatinine decreased to 3.65. ABGs reflecting metabolic acidosis, bicarb drip initiated. Complains of abdominal pain, greater on the right. Blood sugars controlled on low-dose Levemir. 01/09/2022 Developed atrial fibrillation with RVR in addition to respiratory distress requiring intubation and antiarrhythmics last night. Currently on FiO2 40%/+8 of PEEP. Maintained on fentanyl, bicarb, diprovan, amiodarone, vasopressin and the Levophed drips. Telemetry currently sinus rhythm .Continues on Zosyn for Pseudomonas bacteremia. Urine cultures negative. Sputum culture pending. Multiple fluid boluses yesterday, chest x-ray this morning reporting possible pneumonia, CHF, interstitial lung disease. Afebrile, T-max 99.4, normal WBC. Hemoglobin 8.8, platelets 135. Creatinine trending down, 3.15,Magnesium 1.6, nephrology following. 01/10/22 Remains vent dependent, FiO2 40%/+8 peep. Chest x-ray reporting stable bilateral infiltrate and pleural effusion, possible CHF superimposed on background of chronic interstitial pulmonary fibrosis and COPD, possible un derlying pneumonia. Telemetry sinus rhythm. 2-D echo completed, results pending .Maintained on bicarb, fentanyl, vasopressin, Levophed, diprovan drips. Hemoglobin 8.6 Creatinine continues to improve down to 2.72. T-max 99.8, WBC 4.5. Continues on Zosyn. Objective - Vital Signs Vital signs: Vital Signs Temp 99.8 F H 01/10/22 08:00 Pulse 89 01/10/22 10:00 Resp 20 01/10/22 10:00 BP 112/56 01/10/22 10:00 Pulse Ox 98 01/10/22 10:00 Intake & Output 01/09/22 01/10/22 01/10/22 18:59 06:59 18:59 Intake Total 7782.169 8269.856 540.240 Output Total 1205 1150 190 Balance 119.083 124.856 350.240 Weight 95.2 kg 95.2 kg Intake: IV 650 600 165 .9 NS 15 Dextrose 5% in Water 1, 550 600 150 000 ml @ 50 mls/hr IV . Q23H [facility] with Sodium Bicarb (1 Meq/ml) 150 ml Rx#:[id number] Piperacillin-Tazobactam 3 100 .375 gm In Sodium Chloride 0.9% 100 ml @ 25 mls/hr IVPB Q12HR [facility] Rx #:[id number] Intake, IV Titration 674.083 674.856 375.240 Amount Amiodarone 450 mg In 214.449 Dextrose 5% in Water 250 ml @ 0.5 MG/MIN 16.667 mls/hr IV .Q15H [facility] Rx#: [id number] Norepinephrine 32 mg In 126.936 187.6 19.413 Sodium Chloride 0.9% 218 ml @ 0.44 MCG/KG/MIN 18. 954 mls/hr IV .[id number] [facility] Rx#:[id number] Sodium Chloride 0.9% 50 86.547 37.256 35.573 ml @ 0.04 UNITS/MIN 6.12 mls/hr IVPB .Q8H20M [facility] with Vasopressin 20 unit Rx#:[id number] fentaNYL (PF) 2,500 mcg 87.611 250 220.254 In Sodium Chloride 0.9% 200 ml @ 2.5 MCG/KG/HR 22 .975 mls/hr IV .[id number] COUNTS INCLUDE 234 BEDS AT [facility] Rx#:[id number] propofoL 1,000 mg In 158.54 200 100 Empty Bag 1 bag @ Titrate IV .Q0M COUNTS INCLUDE 234 BEDS AT [facility] Rx#: [id number] Output: Urine 1205 1150 190 ABP, PAP, CO, CI - Last Documented Arterial Blood Pressure 124/52 - Exam General: Intubated and sedated Eyes: PERRL, EOMI, conjunctiva normal HENT: normocephalic, atraumatic Neck: supple, no JVD Lungs: normal respiratory effort, no wheezes CV: Regular rate and rhythm, less tachycardic, no murmur. Peripheral pulses 2+ Abdomen: Distended,firmer on right sided abdominal quadrants,Righ RLQ ileostomy good urine output, hypoactive BS. Skin: warm and dry. - Labs CBC & Chem 7: 01/10/22 03:58 01/10/22 03:58 Labs: Abnormal Lab Results - Last 24 Hours (Table) 01/09/22 01/10/22 01/10/22 Range/Units 17:24 03:58 03:58 RBC 2.65 L (4.30-5.90) m/uL Hgb 8.6 L (13.0-17.5) gm/dL Hct 25.3 L (39.0-53.0) % RDW 16.1 H (11.5-15.5) % Plt Count 98 L (150-450) k/uL Lymphocytes # (Manual) 0.32 L (1.0-4.8) k/uL ABG HCO3 (21-25) mmol/L ABG O2 Saturation (94-97) % Carbon Dioxide 31 H (22-30) mmol/L BUN 58 H (9-20) mg/dL Creatinine 2.72 H (0.66-1.25) mg/dL POC Glucose (mg/dL) 141 H (75-99) mg/dL Calcium 7.7 L (8.4-10.2) mg/dL Ionized Calcium Cait (4.5-5.3) mg/dL Total Protein 4.5 L (6.3-8.2) g/dL Albumin 2.0 L (3.5-5.0) g/dL 01/10/22 01/10/22 01/10/22 Range/Units 05:45 11:37 11:55 RBC (4.30-5.90) m/uL Hgb (13.0-17.5) gm/dL Hct (39.0-53.0) % RDW (11.5-15.5) % Plt Count (150-450) k/uL Lymphocytes # (Manual) (1.0-4.8) k/uL ABG HCO3 31 H (21-25) mmol/L ABG O2 Saturation 97.9 H (94-97) % Carbon Dioxide (22-30) mmol/L BUN (9-20) mg/dL Creatinine (0.66-1.25) mg/dL POC Glucose (mg/dL) 133 H (75-99) mg/dL Calcium (8.4-10.2) mg/dL Ionized Calcium Cait 4.3 L (4.5-5.3) mg/dL Total Protein (6.3-8.2) g/dL Albumin (3.5-5.0) g/dL Microbiology - Last 24 Hours (Table) 01/09/22 00:00 Gram Stain - Preliminary Sputum Sputum Culture - Preliminary 01/06/22 18:45 Blood Culture Gram Stain - Final Blood Blood Culture - Final Pseudomonas aeruginosa 01/07/22 18:30 Blood Culture Gram Stain - Final Blood Blood Culture - Final Pseudomonas aeruginosa 01/07/22 23:30 Urine Culture - Final Urine,Voided Assessment and Plan Assessment: Septic shock secondary to Pseudomonas bacteremia, etiology unclear, suspect abdomen Acute hypoxic respiratory failure secondary to the above Pseudomonas Bacteremia Hypotension, secondary to septic shock, pressor dependent Acute renal failure secondary to septic shock, hypotension Atrial fibrillation with RVR, new onset-suspect related to septic shock and bacteremia, currently sinus rhythm Hyperkalemia secondary to the above Labs acidosis secondary to septic shock with bacteremia Metabolic acidosis secondary to acute renal failure, currently on bicarb drip Incarcerated hernia status post colostomy creation Diabetes mellitus type 2 History of bladder cancer with previous urostomy Plan: Continue on current medication regime ,monitoring and symptomatic treatment. Echo results pending .Antiarrhythmics/anticoagulation as per cardiology. Maintained antibiotics as per ID, ICU management as per prefabricator. Prognosis guarded given multiple complex medical issues. The impression and plan of care has been dictated as directed. : I performed a history and examination of this patient, discussed the same with the dictator. I agree with the dictator's note ,documented as a scribe. Any additional findings or plans will be noted.
[2022-01-10] MEDS ORDERED: PARENTERAL ELECTROLYTES 20 ML, MVI, ADULT NO.4 WITH VIT K 10 ML, TRACE (CONC-1ML/DOSE) ... IV ONE ×4 (14:00)
--- NOTE | 2022-01-10 14:00 | P.PN ---
Subjective Progress Note Date: 01/10/22 Principal diagnosis: Acute hypoxic respiratory failure secondary to Sepsis and septic shock secondary to Pseudomonas bacteremia, exact source is unclear This is a 72-year-old male patient with a known history of coronary artery disease with previous stent placement, diabetes mellitus, hypertension, hyperlipidemia, BPH, chronic and ongoing tobacco dependence. He also has a hist ory of urostomy that was done at [facility] several years ago and previous bladder cancer. He had presented to the emergency room yesterday with complaints of abdominal painand distention. CAT scan of the abdomen revealed cyst addition for parastomal hernia which is obstructing the patient Werner conduit through the subcutaneous tissues. There is mild bilateral hydronephrosis. Parastomal hernia containing small bowel demonstrated pneumobilia suggesting strangulation small bowel with possible perforation. Subcutaneous gas which may represent superimposed infections secondary to the small bowel strangulation and possible perforation. White count 12.2. Hemoglobin 10.4. Sodium 138. Pot assium 4.8. BUN 47. Creatinine 3.17. Glucose 252. Plasma lactic acid 2.2. Troponin 0.013. House virus by PCR not detected. He was taken to the operating room last evening and had undergone an exploratory laparotomy, repair of strangulated parastomal hernia, small bowel resection with ileostomy, repair of incisional hernia. Blood cultures preliminary revealing gram-negative bacilli. Lactic acid up to 4.9 today. The patient had issues with hypotension and tachycardia this morning. We're consulted for ICU management. He was transferred there per medicine. 1 L of fluid resuscitation was given. Current labs revealed WBC 2.6. Hemoglobin 11.2. Sodium 133. Potassium 5.5. Chloride 105. Bicarb 17. BUN 55. Creatinine 3.80. Glucose 305. currently on Zosyn. He is seen today in consultation. He is awake and alert. He is having some surgical site pain but denies any worsening shortness of breath. No cough or congestion. No fever. The patient is seen today 01/08/2022 in follow-up in the intensive care unit. He is currently sitting up in bed. More awake and alert today. His color is better. He did receive 4 L of fluid resuscitation yesterday. He is now requiring norepinephrine currently at 0.26 mcg/kg/m. He has 0.9% normal saline running at 125 ML's per hour. Mean arterial pressure 85 currently. He is tachycardic in the 120s. Sinus. Maintaining O2 saturation the high 90s on 2 L/m per nasal cannula. Chest x-ray continues to show interstitial changes in the lung bases. No pneumothorax. Suspect basilar atelectasis versus pneumonia and possible underlying interstitial lung disease. The patient denied having had COVID-19 infection. Blood culture is positive for pseudomonas aeruginosa. He is currently on Zosyn. White count 2.6. Hemoglobin 9.8. Sodium 138. Potassium 5.7. Bicarb 16. BUN 55. Creatinine 3.65. Glucose 140. Urinalysis with large amount of blood and high WBCs. Cultures pending. Arterial blood gases on 28% FiO2 revealed a PaO2 of 73, pCO2 38 and a pH of 7.22. He remains on DuoNeb inhalations, heparin for DVT prophylaxis, Protonix for GI prophylaxis. He remains nothing by mouth. There is minimal output of the ileostomy. Midlin e dressing dry and intact. Urostomy with adequate output. Currently in a 3.2 L positive balance Reevaluated today on 01/09/2022, patient remains in the ICU, intubated and mechanically ventilated. Clinical status deteriorated last night, patient had to be intubated. He is now on assist control rate of 30 tidal volume 500 FiO2 50% and PEEP of 8. ABG showed a pO2 of 125 pCO2 46 pH of 7.37. Patient had to be placed on bicarb drip yesterday and he is now on bicarbonate 50 mL per hour. His FiO2 was decreased down to 40% after reviewing the ABG. Patient is requiring norepinephrine at 0.25 he is also requiring vasopressin at 0.04. Received multiple fluid boluses yesterday, and the patient clearly has a septic shock presentation. He is on vasopressin at 0.04. He is also on fentanyl at 2 mcg/kg/hour, propofol at 35 mcg/kg/m, patient is not requiring any paralysis. Chest x-ray is showing a picture of congestive heart failure, possibly some pneumonia/superimposed. His cultures have been positive for pseudomonas aeruginosa. Patient remains on Zosyn. Urine cultures are nondiagnostic, sputum cultures are pending. WBC count today is 3.8 hemoglobin is 8.8. Complete metabolic profile is relatively unremarkable except for worsening renal profile with a BUN up to 59 and creatinine 3.15, being followed by nephrology on the case. Reevaluated today on 01/10/2022, patient remains in the ICU, intubated and mechanically ventilated sedated, but not paralyzed. Patient is on assist cont rol mode of mechanical ventilation rate of 20, volume 500 FiO2 40% and PEEP of 8. ABG showed a pO2 of 106 pCO2 45 pH of 7.45. Patient is still requiring hemodynamic support, he is on vasopressin at 0.03 units per minute, norepinephrine at 0.24 mcg/kg/m. Total of 22 mcg/m. He is on fentanyl at 2 mcg/kg/m. And on propofol at 35 mcg/kg/m. Chest x-ray continues to show bilateral interstitial edema and/or infiltrates. Patient received significant amount of fluids on his initial presentation when he was septic and hypotensive, later on he was placed on pressors in the form of vasopressin and norepinephrine. CVP today is 8, hence no need for more fluids and no need for aggressive diuresis. Patient remains on bicarb drip at 50 mL per hour, and I will go ahead and discontinue bicarbonate based on his electrolytes and based on his ABG. His bicarb is 31. Renal profile today is improving, it was as high as 3.8, creatinine now is 2.72. WBC count is 4.5 hemoglobin is 8.6. Patient remains on Zosyn for his Pseudomonas bacteremia and I believe the most likely source of his Pseudomonas is his GI tract patient remains on GI and DVT prophylaxis. Platelets are 98,000, not unexpected considering the patient is septic and has septic shock on presentation Objective - Vital Signs Vital signs: Vital Signs Temp 99.0 F 01/10/22 12:00 Pulse 80 01/10/22 13:24 Resp 20 01/10/22 13:00 BP 114/68 01/10/22 12:15 Pulse Ox 98 01/10/22 13:00 Intake & Output 01/09/22 01/10/22 01/10/22 18:59 06:59 18:59 Intake Total 4851.507 3056.856 758.859 Output Total 1205 1150 540 Balance 119.083 124.856 218.859 Weight 95.2 kg 95.2 kg Intake: IV 650 600 340 .9 NS 115 Dextrose 5% in Water 1, 550 600 150 000 ml @ 50 mls/hr IV . Q23H [facility] with Sodium Bicarb (1 Meq/ml) 150 ml Rx#:[id number] Piperacillin-Tazobactam 3 100 75 .375 gm In Sodium Chloride 0.9% 100 ml @ 25 mls/hr IVPB Q12HR [facility] Rx #:[id number] Intake, IV Titration 674.083 674.856 418.859 Amount Amiodarone 450 mg In 214.449 Dextrose 5% in Water 250 ml @ 0.5 MG/MIN 16.667 mls/hr IV .Q15H [facility] Rx#: [id number] Norepinephrine 32 mg In 126.936 187.6 19.413 Sodium Chloride 0.9% 218 ml @ 0.44 MCG/KG/MIN 18. 954 mls/hr IV .[id number] [facility] Rx#:[id number] Sodium Chloride 0.9% 50 86.547 37.256 43.121 ml @ 0.04 UNITS/MIN 6.12 mls/hr IVPB .Q8H20M [facility] with Vasopressin 20 unit Rx#:[id number] fentaNYL (PF) 2,500 mcg 87.611 250 256.325 In Sodium Chloride 0.9% 200 ml @ 2.5 MCG/KG/HR 22 .975 mls/hr IV .[id number] [facility] Rx#:[id number] propofoL 1,000 mg In 158.54 200 100 Empty Bag 1 bag @ Titrate IV .Q0M [facility] Rx#: [id number] Output: Urine 1205 1150 540 ABP, PAP, CO, CI - Last Documented Arterial Blood Pressure 113/49 - Exam GENERAL EXAM: Revealed a 72-year-old white male intubated, mechanically ventilated, sedated, on propofol and fentanyl. HEAD: Normocephalic. Atraumatic. EYES: Normal reaction of pupils, equal size. NOSE: Clear with pink turbinates. THROAT: No erythema or exudates. Endotracheal tube and orogastric tube are intact. NECK: No masses, no JVD. CHEST: Symmetrical chest expansion, no deformity. LUNGS: Fine crackles at the bases. CVS: Irregular irregular rhythm. S1 and S2 normal with no audible murmur, regular rhythm. ABDOMEN: Urostomy on the left, ileostomy on the right, midline dressing dry and intact. SKIN: No rashes CENTRAL NERVOUS SYSTEM: Cannot assess, patient is fully sedated. On propofol and fentanyl. EXTREMITIES: Cannot assess - Labs CBC & Chem 7: 01/10/22 03:58 01/10/22 03:58 Labs: Abnormal Lab Results - Last 24 Hours (Table) 01/09/22 01/10/22 01/10/22 Range/Units 17:24 03:58 03:58 RBC 2.65 L (4.30-5.90) m/uL Hgb 8.6 L (13.0-17.5) gm/dL Hct 25.3 L (39.0-53.0) % RDW 16.1 H (11.5-15.5) % Plt Count 98 L (150-450) k/uL Lymphocytes # (Manual) 0.32 L (1.0-4.8) k/uL ABG HCO3 (21-25) mmol/L ABG O2 Saturation (94-97) % Carbon Dioxide 31 H (22-30) mmol/L BUN 58 H (9-20) mg/dL Creatinine 2.72 H (0.66-1.25) mg/dL POC Glucose (mg/dL) 141 H (75-99) mg/dL Calcium 7.7 L (8.4-10.2) mg/dL Ionized Calcium Cait (4.5-5.3) mg/dL Total Protein 4.5 L (6.3-8.2) g/dL Albumin 2.0 L (3.5-5.0) g/dL 01/10/22 01/10/22 01/10/22 Range/Units 05:45 11:37 11:55 RBC (4.30-5.90) m/uL Hgb (13.0-17.5) gm/dL Hct (39.0-53.0) % RDW (11.5-15.5) % Plt Count (150-450) k/uL Lymphocytes # (Manual) (1.0-4.8) k/uL ABG HCO3 31 H (21-25) mmol/L ABG O2 Saturation 97.9 H (94-97) % Carbon Dioxide (22-30) mmol/L BUN (9-20) mg/dL Creatinine (0.66-1.25) mg/dL POC Glucose (mg/dL) 133 H (75-99) mg/dL Calcium (8.4-10.2) mg/dL Ionized Calcium Cait 4.3 L (4.5-5.3) mg/dL Total Protein (6.3-8.2) g/dL Albumin (3.5-5.0) g/dL Microbiology - Last 24 Hours (Table) 01/09/22 00:00 Gram Stain - Preliminary Sputum Sputum Culture - Preliminary 01/06/22 18:45 Blood Culture Gram Stain - Final Blood Blood Culture - Final Pseudomonas aeruginosa 01/07/22 18:30 Blood Culture Gram Stain - Final Blood Blood Culture - Final Pseudomonas aeruginosa 01/07/22 23:30 Urine Culture - Final Urine,Voided Assessment and Plan Assessment: Impression: Acute hypoxic respiratory failure secondary to septic shock, secondary to Pseudomonas aeruginosa bacteremia, most likely is GI source. patient presented initially with strangulation of the small bowel with possible perforation and had small bowel and pneumobilia. Patient is status post exploratory laparotomy repair of strangulated parastomal hernia small bowel resection and ileostomy with repair of incisional hernia on 01/06/2022, postoperative day #4. Patient was intubated on 01/08/20, and remains intubated , sedated, and mechanically ventilated. Pseudomonas aeruginosa bacteremia Hypotension secondary to septic shock Lactic acidosis secondary to sepsis and septic shock Acute kidney injury secondary to sepsis and septic shock, suspect acute tubular necrosis, today seems to be improving. Hyperkalemia secondary to acute kidney injury and septic shock/hypotension, resolved. History of bladder cancer with previous urostomy Type 2 diabetes. Dyslipidemia. Coronary artery disease and previous stent placement. Tobacco dependence syndrome. New onset atrial fibrillation that developed last night, patient was treated with amiodarone, he is presently in sinus rhythm. Being followed by cardiology. Recommendation: Continue ventilatory support. No changes made in his ventilator settings today Continue hemodynamic support. Patient is presently on vasopressin and norepinephrine, titrate accordingly Continue sedation, patient is not ready for weaning. Continue Zosyn. Discontinue bicarb drip. Start patient on TPN. continue amiodarone. Continue subcu heparin Continue GI and DVT prophylaxis. Prognosis remains relatively poor and guarded. Patient is critically ill. Critical care time is over 30 minutes. . Time with Patient: Greater than 30
--- NOTE | 2022-01-10 14:26 | P.PN ---
Subjective Progress Note Date: 01/10/22 CHIEF COMPLAINT: Strangulated parastomal hernia HISTORY OF PRESENT ILLNESS: Patient is status post Exploratory laparotomy, Repair of strangulated parastomal hernia, Small bowel resection with ileostomy and Repair of incisional hernia. POD #4. Patient is intubated and on mechanical ventilation. FiO2 40% PEEP of 8. Patient still requiring vasopressin and norepinephrine. Patient does remain on a bicarb drip. Patient has Pseudomonas bacteremia and Dr. allen feels that it's likely coming from the GI tract. Low-grade temps 99.8 WBC 4.5 hemoglobin 8.6 platelets 98 sodium 142 potassium 3.6 creatinine 2.72 Patient seen and examined with Dr. allen PHYSICAL EXAM: VITAL SIGNS: Reviewed. GENERAL: Well-developed in no acute distress. HEENT: No sclera icterus. Extraocular movements grossly intact. Moist buccal mucosa. Head is atraumatic, normocephalic. ABDOMEN: Soft. Nondistended. Incisional site clean dry and intact. Ileostomy stoma pink. No stool present or air in bag. Urostomy's stoma less dusky and becoming more pink. Urine is clearing. NEUROLOGIC: Alert and oriented. Cranial nerves II through XII grossly intact. ASSESSMENT: 1. Strangulated parastomal hernia and incisional hernia status post Exploratory laparotomy, Repair of strangulated parastomal hernia, Small bowel resection with ileostomy and Repair of incisional hernia 2. History of bladder cancer with urostomy 3. Hyperkalemia 4. Acute kidney injury 5. Sepsis and septic shock 6. Bacteremia with Pseudomonas 7. New onset of A. fib PLAN: -Consult dietitian to start TPN -Consult placed for PICC line placement -Continue ICU management -Continue supportive care -Continue antibiotics per ID -DVT prophylaxis subcu heparin and GI prophylaxis Protonix Physician Hide Trimmer note has been reviewed by physician. Signing provider agrees with the documented findings, assessment, and plan of care. Objective - Vital Signs Vital signs: Vital Signs Temp 99.0 F 01/10/22 12:00 Pulse 80 01/10/22 13:24 Resp 20 01/10/22 13:00 BP 114/68 01/10/22 12:15 Pulse Ox 98 01/10/22 13:00 Intake & Output 02/10/22 02/11/22 02/11/22 18:59 06:59 18:59 Intake Total 0409.451 7605.856 758.859 Output Total 1205 1150 540 Balance 119.083 124.856 218.859 Weight 95.2 kg 95.2 kg Intake: IV 650 600 340 .9 NS 115 Dextrose 5% in Water 1, 550 600 150 000 ml @ 50 mls/hr IV . Q23H [facility] with Sodium Bicarb (1 Meq/ml) 150 ml Rx#:[id number] Piperacillin-Tazobactam 3 100 75 .375 gm In Sodium Chloride 0.9% 100 ml @ 25 mls/hr IVPB Q12HR [facility] Rx #:[id number] Intake, IV Titration 674.083 674.856 418.859 Amount Amiodarone 450 mg In 214.449 Dextrose 5% in Water 250 ml @ 0.5 MG/MIN 16.667 mls/hr IV .Q15H [facility] Rx#: [id number] Norepinephrine 32 mg In 126.936 187.6 19.413 Sodium Chloride 0.9% 218 ml @ 0.44 MCG/KG/MIN 18. 954 mls/hr IV .[id number] [facility] Rx#:[id number] Sodium Chloride 0.9% 50 86.547 37.256 43.121 ml @ 0.04 UNITS/MIN 6.12 mls/hr IVPB .Q8H20M [facility] with Vasopressin 20 unit Rx#:[id number] fentaNYL (PF) 2,500 mcg 87.611 250 256.325 In Sodium Chloride 0.9% 200 ml @ 2.5 MCG/KG/HR 22 .975 mls/hr IV .[id number] [facility] Rx#:[id number] propofoL 1,000 mg In 158.54 200 100 Empty Bag 1 bag @ Titrate IV .Q0M [facility] Rx#: [id number] Output: Urine 1205 1150 540 ABP, PAP, CO, CI - Last Documented Arterial Blood Pressure 113/49 - Labs CBC & Chem 7: 01/10/22 03:58 01/10/22 03:58 Labs: Abnormal Lab Results - Last 24 Hours (Table) 01/09/22 01/10/22 01/10/22 Range/Units 17:24 03:58 03:58 RBC 2.65 L (4.30-5.90) m/uL Hgb 8.6 L (13.0-17.5) gm/dL Hct 25.3 L (39.0-53.0) % RDW 16.1 H (11.5-15.5) % Plt Count 98 L (150-450) k/uL Lymphocytes # (Manual) 0.32 L (1.0-4.8) k/uL ABG HCO3 (21-25) mmol/L ABG O2 Saturation (94-97) % Carbon Dioxide 31 H (22-30) mmol/L BUN 58 H (9-20) mg/dL Creatinine 2.72 H (0.66-1.25) mg/dL POC Glucose (mg/dL) 141 H (75-99) mg/dL Calcium 7.7 L (8.4-10.2) mg/dL Ionized Calcium Cait (4.5-5.3) mg/dL Total Protein 4.5 L (6.3-8.2) g/dL Albumin 2.0 L (3.5-5.0) g/dL 01/10/22 01/10/22 01/10/22 Range/Units 05:45 11:37 11:55 RBC (4.30-5.90) m/uL Hgb (13.0-17.5) gm/dL Hct (39.0-53.0) % RDW (11.5-15.5) % Plt Count (150-450) k/uL Lymphocytes # (Manual) (1.0-4.8) k/uL ABG HCO3 31 H (21-25) mmol/L ABG O2 Saturation 97.9 H (94-97) % Carbon Dioxide (22-30) mmol/L BUN (9-20) mg/dL Creatinine (0.66-1.25) mg/dL POC Glucose (mg/dL) 133 H (75-99) mg/dL Calcium (8.4-10.2) mg/dL Ionized Calcium Cait 4.3 L (4.5-5.3) mg/dL Total Protein (6.3-8.2) g/dL Albumin (3.5-5.0) g/dL Microbiology - Last 24 Hours (Table) 01/09/22 00:00 Gram Stain - Preliminary Sputum Sputum Culture - Preliminary 01/06/22 18:45 Blood Culture Gram Stain - Final Blood Blood Culture - Final Pseudomonas aeruginosa 01/07/22 18:30 Blood Culture Gram Stain - Final Blood Blood Culture - Final Pseudomonas aeruginosa 01/07/22 23:30 Urine Culture - Final Urine,Voided
--- NOTE | 2022-01-10 15:24 | P.PN ---
Subjective Progress Note Date: 01/09/22 Principal diagnosis: Pseudomonas bacteremia Patient is 72-year-old male, presented to hospital with abdominal pain has been diagnosed with strangulated parastomal hernia, in this patient was status post exploratory laparotomy, small bowel resection with ileostomy and re pair of incisional hernia patient was noticed to have a positive blood culture has been finalized with pseudomonas aeruginosa, patient was transferred to the ICU because of hypotension. On today's evaluation that is 01/09/2022, the patient remains to be afebrile, patient did have worsening respiratory status requiring intubation, currently on the vent, is hemodynamically stable not on any pressor support no significant purulent secretions through the ET or diarrhea reported by the nursing staff Objective - Vital Signs Vital signs: Vital Signs Temp 99 F 01/09/22 04:00 Pulse 99 01/09/22 11:27 Resp 20 01/09/22 07:00 BP 123/61 01/09/22 04:00 Pulse Ox 100 01/09/22 07:00 Intake & Output 01/08/22 01/09/22 01/09/22 18:59 06:59 18:59 Intake Total 1568.743 2381.672 251.631 Output Total 905 2140 Balance 100.516 -140.328 251.631 Weight 95.3 kg Intake: IV 725 1300 Dextrose 5% in Water 1, 500 1200 000 ml @ 100 mls/hr IV . [id number] [facility] with Sodium Bicarb (1 Meq/ml) 150 ml Rx#:[id number] Piperacillin-Tazobactam 3 100 100 .375 gm In Sodium Chloride 0.9% 100 ml @ 25 mls/hr IVPB Q12HR [facility] Rx #:[id number] Sodium Chloride 0.9% 1, 125 000 ml @ 125 mls/hr IV . Q8H [facility] Rx#:[id number] Intake, IV Titration 280.516 699.672 251.631 Amount Norepinephrine 32 mg In 138.502 65.292 Sodium Chloride 0.9% 218 ml @ 0.44 MCG/KG/MIN 18. 954 mls/hr IV .[id number] [facility] Rx#:[id number] Norepinephrine 8 mg In 280.516 235.484 Sodium Chloride 0.9% 250 ml @ 0.05 MCG/KG/MIN 8. 119 mls/hr IV .Q24H [facility] Rx#:[id number] Sodium Chloride 0.9% 50 25.908 40.188 ml @ 0.04 UNITS/MIN 6.12 mls/hr IVPB .Q8H20M [facility] with Vasopressin 20 unit Rx#:[id number] fentaNYL (PF) 2,500 mcg 141.297 87.611 In Sodium Chloride 0.9% 200 ml @ 2.5 MCG/KG/HR 22 .975 mls/hr IV .[id number] [facility] Rx#:[id number] propofoL 1,000 mg In 158.481 58.54 Empty Bag 1 bag @ Titrate IV .Q0M [facility] Rx#: [id number] Tube Feeding 0 Other 0 Output: Gastric Drainage 280 Urine 905 1860 ABP, PAP, CO, CI - Last Documented Arterial Blood Pressure 137/58 - Exam GENERAL DESCRIPTION: An elderly male intubated on the vent RESPIRATORY SYSTEM: Unlabored breathing , decreased breath sounds at bases HEART: S1 S2 regular rate and rhythm , ABDOMEN: Soft , mild distention, no tenderness EXTREMITIES: No edema feeT - Labs CBC & Chem 7: 01/10/22 03:58 01/10/22 03:58 Labs: Abnormal Lab Results - Last 24 Hours (Table) 01/08/22 01/08/22 01/08/22 Range/Units 16:59 17:30 17:30 WBC 2.2 L (3.8-10.6) k/uL RBC 2.63 L (4.30-5.90) m/uL Hgb 8.5 L (13.0-17.5) gm/dL Hct 26.3 L (39.0-53.0) % MCV 100.2 H (80.0-100.0) fL RDW (11.5-15.5) % Plt Count 138 L (150-450) k/uL Lymphocytes # (Manual) (1.0-4.8) k/uL ABG pH (7.35-7.45) ABG pCO2 (35-45) mmHg ABG pO2 (83-108) mmHg ABG HCO3 (21-25) mmol/L ABG Total CO2 (19-24) mmol/L ABG O2 Saturation (94-97) % ABG Lactic Acid (0.5-1.6) mmol/L Chloride 111 H (98-107) mmol/L Carbon Dioxide 15 L (22-30) mmol/L BUN 56 H (9-20) mg/dL Creatinine 3.45 H (0.66-1.25) mg/dL Glucose 200 H (74-99) mg/dL POC Glucose (mg/dL) 180 H (75-99) mg/dL Plasma Lactic Acid Guero (0.7-2.0) mmol/L Calcium 7.6 L (8.4-10.2) mg/dL Phosphorus 6.5 H (2.5-4.5) mg/dL Magnesium 1.0 L (1.6-2.3) mg/dL Total Protein (6.3-8.2) g/dL Albumin (3.5-5.0) g/dL 01/08/22 01/08/22 01/08/22 Range/Units 17:30 18:50 21:12 WBC (3.8-10.6) k/uL RBC (4.30-5.90) m/uL Hgb (13.0-17.5) gm/dL Hct (39.0-53.0) % MCV (80.0-100.0) fL RDW (11.5-15.5) % Plt Count (150-450) k/uL Lymphocytes # (Manual) (1.0-4.8) k/uL ABG pH 7.29 L 7.20 L (7.35-7.45) ABG pCO2 62 H (35-45) mmHg ABG pO2 69 L 218 H (83-108) mmHg ABG HCO3 19 L (21-25) mmol/L ABG Total CO2 26 H (19-24) mmol/L ABG O2 Saturation 92.9 L 99.2 H (94-97) % ABG Lactic Acid 6.5 H* (0.5-1.6) mmol/L Chloride (98-107) mmol/L Carbon Dioxide (22-30) mmol/L BUN (9-20) mg/dL Creatinine (0.66-1.25) mg/dL Glucose (74-99) mg/dL POC Glucose (mg/dL) (75-99) mg/dL Plasma Lactic Acid Guero (0.7-2.0) mmol/L Calcium (8.4-10.2) mg/dL Phosphorus (2.5-4.5) mg/dL Magnesium (1.6-2.3) mg/dL Total Protein (6.3-8.2) g/dL Albumin (3.5-5.0) g/dL 01/08/22 01/09/22 01/09/22 Range/Units 21:23 00:01 05:30 WBC (3.8-10.6) k/uL RBC (4.30-5.90) m/uL Hgb (13.0-17.5) gm/dL Hct (39.0-53.0) % MCV (80.0-100.0) fL RDW (11.5-15.5) % Plt Count (150-450) k/uL Lymphocytes # (Manual) (1.0-4.8) k/uL ABG pH (7.35-7.45) ABG pCO2 (35-45) mmHg ABG pO2 (83-108) mmHg ABG HCO3 (21-25) mmol/L ABG Total CO2 (19-24) mmol/L ABG O2 Saturation (94-97) % ABG Lactic Acid (0.5-1.6) mmol/L Chloride 108 H (98-107) mmol/L Carbon Dioxide (22-30) mmol/L BUN 59 H (9-20) mg/dL Creatinine 3.15 H (0.66-1.25) mg/dL Glucose 224 H (74-99) mg/dL POC Glucose (mg/dL) 216 H (75-99) mg/dL Plasma Lactic Acid Guero 4.7 H* (0.7-2.0) mmol/L Calcium 7.4 L (8.4-10.2) mg/dL Phosphorus (2.5-4.5) mg/dL Magnesium (1.6-2.3) mg/dL Total Protein 4.7 L (6.3-8.2) g/dL Albumin 2.1 L (3.5-5.0) g/dL 01/09/22 01/09/22 01/09/22 Range/Units 05:30 05:38 06:03 WBC (3.8-10.6) k/uL RBC 2.79 L (4.30-5.90) m/uL Hgb 8.8 L (13.0-17.5) gm/dL Hct 27.5 L (39.0-53.0) % MCV (80.0-100.0) fL RDW 16.0 H (11.5-15.5) % Plt Count 135 L (150-450) k/uL Lymphocytes # (Manual) 0.30 L (1.0-4.8) k/uL ABG pH (7.35-7.45) ABG pCO2 46 H (35-45) mmHg ABG pO2 125 H (83-108) mmHg ABG HCO3 27 H (21-25) mmol/L ABG Total CO2 28 H (19-24) mmol/L ABG O2 Saturation 98.6 H (94-97) % ABG Lactic Acid (0.5-1.6) mmol/L Chloride (98-107) mmol/L Carbon Dioxide (22-30) mmol/L BUN (9-20) mg/dL Creatinine (0.66-1.25) mg/dL Glucose (74-99) mg/dL POC Glucose (mg/dL) 196 H (75-99) mg/dL Plasma Lactic Acid Guero (0.7-2.0) mmol/L Calcium (8.4-10.2) mg/dL Phosphorus (2.5-4.5) mg/dL Magnesium (1.6-2.3) mg/dL Total Protein (6.3-8.2) g/dL Albumin (3.5-5.0) g/dL 01/09/22 Range/Units 11:32 WBC (3.8-10.6) k/uL RBC (4.30-5.90) m/uL Hgb (13.0-17.5) gm/dL Hct (39.0-53.0) % MCV (80.0-100.0) fL RDW (11.5-15.5) % Plt Count (150-450) k/uL Lymphocytes # (Manual) (1.0-4.8) k/uL ABG pH (7.35-7.45) ABG pCO2 (35-45) mmHg ABG pO2 (83-108) mmHg ABG HCO3 (21-25) mmol/L ABG Total CO2 (19-24) mmol/L ABG O2 Saturation (94-97) % ABG Lactic Acid (0.5-1.6) mmol/L Chloride (98-107) mmol/L Carbon Dioxide (22-30) mmol/L BUN (9-20) mg/dL Creatinine (0.66-1.25) mg/dL Glucose (74-99) mg/dL POC Glucose (mg/dL) 176 H (75-99) mg/dL Plasma Lactic Acid Guero (0.7-2.0) mmol/L Calcium (8.4-10.2) mg/dL Phosphorus (2.5-4.5) mg/dL Magnesium (1.6-2.3) mg/dL Total Protein (6.3-8.2) g/dL Albumin (3.5-5.0) g/dL Microbiology - Last 24 Hours (Table) 01/07/22 23:30 Urine Culture - Final Urine,Voided 01/06/22 18:45 Blood Culture Gram Stain - Preliminary Blood Blood Culture - Preliminary Gram Neg Bacilli 01/07/22 18:30 Blood Culture Gram Stain - Preliminary Blood Blood Culture - Preliminary Pseudomonas aeruginosa Assessment and Plan (1) Bacteremia Current Visit: Yes Status: Acute Code(s): R78.81 - BACTEREMIA SNOMED Code(s): 3584408 Plan: Patient with gram-negative bacteremia source is likely abdominal and this patient presented to the hospital with incarcerated hernia status post small bowel resection and ileostomy and repair of the hernia patient did have worsening of his respiratory status requiring intubation, patient to continue with the Zosyn while waiting for the sensitivities to finalized and monitor his clinical course closely Time with Patient: Less than 30
--- NOTE | 2022-01-10 15:25 | P.PN ---
Subjective Progress Note Date: 01/10/22 Principal diagnosis: Pseudomonas bacteremia Patient is 72-year-old male, presented to hospital with abdominal pain has been diagnosed with strangulated parastomal hernia, in this patient was status post exploratory laparotomy, small bowel resection with ileostomy and re pair of incisional hernia patient was noticed to have a positive blood culture has been finalized with pseudomonas aeruginosa, patient was transferred to the ICU because of hypotension. On today's evaluation that is 01/10/2022, the patient did have a low-grade fever of 99F, patient remains to be intubated on the vent, the patient is hemodynamically stable not on any pressor support no significant purulent secretions through the ET or diarrhea reported by the nursing staff Objective - Vital Signs Vital signs: Vital Signs Temp 99.0 F 01/10/22 12:00 Pulse 83 01/10/22 15:00 Resp 20 01/10/22 15:00 BP 99/58 01/10/22 14:15 Pulse Ox 99 01/10/22 15:00 Intake & Output 01/09/22 01/10/22 01/10/22 18:59 06:59 18:59 Intake Total 1426.365 3969.856 758.859 Output Total 1205 1150 540 Balance 119.083 124.856 218.859 Weight 95.2 kg 95.2 kg Intake: IV 650 600 340 .9 NS 115 Dextrose 5% in Water 1, 550 600 150 000 ml @ 50 mls/hr IV . Q23H [facility] with Sodium Bicarb (1 Meq/ml) 150 ml Rx#:[id number] Piperacillin-Tazobactam 3 100 75 .375 gm In Sodium Chloride 0.9% 100 ml @ 25 mls/hr IVPB Q12HR [facility] Rx #:[id number] Intake, IV Titration 674.083 674.856 418.859 Amount Amiodarone 450 mg In 214.449 Dextrose 5% in Water 250 ml @ 0.5 MG/MIN 16.667 mls/hr IV .Q15H [facility] Rx#: [id number] Norepinephrine 32 mg In 126.936 187.6 19.413 Sodium Chloride 0.9% 218 ml @ 0.44 MCG/KG/MIN 18. 954 mls/hr IV .[id number] [facility] Rx#:[id number] Sodium Chloride 0.9% 50 86.547 37.256 43.121 ml @ 0.04 UNITS/MIN 6.12 mls/hr IVPB .Q8H20M [facility] with Vasopressin 20 unit Rx#:[id number] fentaNYL (PF) 2,500 mcg 87.611 250 256.325 In Sodium Chloride 0.9% 200 ml @ 2.5 MCG/KG/HR 22 .975 mls/hr IV .[id number] ON LICENSE OF [facility] Rx#:[id number] propofoL 1,000 mg In 158.54 200 100 Empty Bag 1 bag @ Titrate IV .Q0M [facility] OF [facility] Rx#: [id number] Output: Urine 1205 1150 540 ABP, PAP, CO, CI - Last Documented Arterial Blood Pressure 119/52 - Exam GENERAL DESCRIPTION: An elderly male intubated on the vent RESPIRATORY SYSTEM: Unlabored breathing , decreased breath sounds at bases HEART: S1 S2 regular rate and rhythm , ABDOMEN: Soft , mild distention, no tenderness EXTREMITIES: No edema feeT - Labs CBC & Chem 7: 01/10/22 03:58 01/10/22 03:58 Labs: Abnormal Lab Results - Last 24 Hours (Table) 01/09/22 01/10/22 01/10/22 Range/Units 17:24 03:58 03:58 RBC 2.65 L (4.30-5.90) m/uL Hgb 8.6 L (13.0-17.5) gm/dL Hct 25.3 L (39.0-53.0) % RDW 16.1 H (11.5-15.5) % Plt Count 98 L (150-450) k/uL Lymphocytes # (Manual) 0.32 L (1.0-4.8) k/uL ABG HCO3 (21-25) mmol/L ABG O2 Saturation (94-97) % Carbon Dioxide 31 H (22-30) mmol/L BUN 58 H (9-20) mg/dL Creatinine 2.72 H (0.66-1.25) mg/dL POC Glucose (mg/dL) 141 H (75-99) mg/dL Calcium 7.7 L (8.4-10.2) mg/dL Ionized Calcium Cait (4.5-5.3) mg/dL Total Protein 4.5 L (6.3-8.2) g/dL Albumin 2.0 L (3.5-5.0) g/dL 01/10/22 01/10/22 01/10/22 Range/Units 05:45 11:37 11:55 RBC (4.30-5.90) m/uL Hgb (13.0-17.5) gm/dL Hct (39.0-53.0) % RDW (11.5-15.5) % Plt Count (150-450) k/uL Lymphocytes # (Manual) (1.0-4.8) k/uL ABG HCO3 31 H (21-25) mmol/L ABG O2 Saturation 97.9 H (94-97) % Carbon Dioxide (22-30) mmol/L BUN (9-20) mg/dL Creatinine (0.66-1.25) mg/dL POC Glucose (mg/dL) 133 H (75-99) mg/dL Calcium (8.4-10.2) mg/dL Ionized Calcium Cait 4.3 L (4.5-5.3) mg/dL Total Protein (6.3-8.2) g/dL Albumin (3.5-5.0) g/dL Microbiology - Last 24 Hours (Table) 01/09/22 00:00 Gram Stain - Preliminary Sputum Sputum Culture - Preliminary 01/06/22 18:45 Blood Culture Gram Stain - Final Blood Blood Culture - Final Pseudomonas aeruginosa 01/07/22 18:30 Blood Culture Gram Stain - Final Blood Blood Culture - Final Pseudomonas aeruginosa 01/07/22 23:30 Urine Culture - Final Urine,Voided Assessment and Plan (1) Bacteremia Current Visit: Yes Status: Acute Code(s): R78.81 - BACTEREMIA SNOMED Code(s): 5052710 Plan: Patient with gram-negative bacteremia source is likely abdominal and this pat ient presented to the hospital with incarcerated hernia status post small bowel resection and ileostomy and repair of the hernia patient did have worsening of his respiratory status requiring intubation, patient pseudomonas and it shows intermediate sensitivity to Zosyn and cefepime, antibiotic will be switched over to meropenem and will monitor his clinical course closely Time with Patient: Less than 30
--- NOTE | 2022-01-10 15:38 | P.PN ---
Subjective Principal diagnosis: Patient is a 72-year-old male with history of bladder cancer status post cystectomy and ileal loop urostomy, he was admitted to the hospital with abdominal pain and found to have a parastomal hernia with incarceration and bowel necrosis. Patient was taken to surgery on 01/06/2022 and had explorative laparotomy with repair of strangulated parastomal hernia and small bowel resection with ileostomy and repair of incisional hernia. Patient is seen for follow-up for acute kidney injury, mostly ATN secondary to hypotension and sepsis as well as an obstructive component. Renal function has been improving. Patient has had good output from his urostomy. Pressors are being decreased. Patient remains on IV fluids. Urine output at about 75 mL an hour. Levo fed is at 0.25 mcg/kg/m. Vasopressin is off. Objective - Vital Signs Vital signs: Vital Signs Temp 99.0 F 01/10/22 12:00 Pulse 83 01/10/22 15:00 Resp 20 01/10/22 15:00 BP 99/58 01/10/22 14:15 Pulse Ox 99 01/10/22 15:00 Intake & Output 01/09/22 01/10/22 01/10/22 18:59 06:59 18:59 Intake Total 2477.173 5428.856 758.859 Output Total 1205 1150 540 Balance 119.083 124.856 218.859 Weight 95.2 kg 95.2 kg Intake: IV 650 600 340 .9 NS 115 Dextrose 5% in Water 1, 550 600 150 000 ml @ 50 mls/hr IV . Q23H [facility] with Sodium Bicarb (1 Meq/ml) 150 ml Rx#:[id number] Piperacillin-Tazobactam 3 100 75 .375 gm In Sodium Chloride 0.9% 100 ml @ 25 mls/hr IVPB Q12HR [facility] Rx #:[id number] Intake, IV Titration 674.083 674.856 418.859 Amount Amiodarone 450 mg In 214.449 Dextrose 5% in Water 250 ml @ 0.5 MG/MIN 16.667 mls/hr IV .Q15H [facility] Rx#: [id number] Norepinephrine 32 mg In 126.936 187.6 19.413 Sodium Chloride 0.9% 218 ml @ 0.44 MCG/KG/MIN 18. 954 mls/hr IV .[id number] [facility] Rx#:[id number] Sodium Chloride 0.9% 50 86.547 37.256 43.121 ml @ 0.04 UNITS/MIN 6.12 mls/hr IVPB .Q8H20M [facility] with Vasopressin 20 unit Rx#:[id number] fentaNYL (PF) 2,500 mcg 87.611 250 256.325 In Sodium Chloride 0.9% 200 ml @ 2.5 MCG/KG/HR 22 .975 mls/hr IV .[id number] [facility] Rx#:[id number] propofoL 1,000 mg In 158.54 200 100 Empty Bag 1 bag @ Titrate IV .Q0M [facility] Rx#: [id number] Output: Urine 1205 1150 540 ABP, PAP, CO, CI - Last Documented Arterial Blood Pressure 119/52 - Exam Patient is sedated. He is on the vent. Examination of the heart S1 and S2 Examination lungs bilateral breath sounds are heard Abdomen is soft. Ileostomy and urostomy noted. Stoma off the urostomy is dark in color. Some sloughing is noted. Examination of the lower extremities shows no evidence of edema [employer] exam cannot be performed as patient is sedated - Labs CBC & Chem 7: 01/10/22 03:58 01/10/22 03:58 Labs: Abnormal Lab Results - Last 24 Hours (Table) 01/09/22 01/10/22 01/10/22 Range/Units 17:24 03:58 03:58 RBC 2.65 L (4.30-5.90) m/uL Hgb 8.6 L (13.0-17.5) gm/dL Hct 25.3 L (39.0-53.0) % RDW 16.1 H (11.5-15.5) % Plt Count 98 L (150-450) k/uL Lymphocytes # (Manual) 0.32 L (1.0-4.8) k/uL ABG HCO3 (21-25) mmol/L ABG O2 Saturation (94-97) % Carbon Dioxide 31 H (22-30) mmol/L BUN 58 H (9-20) mg/dL Creatinine 2.72 H (0.66-1.25) mg/dL POC Glucose (mg/dL) 141 H (75-99) mg/dL Calcium 7.7 L (8.4-10.2) mg/dL Ionized Calcium Cait (4.5-5.3) mg/dL Total Protein 4.5 L (6.3-8.2) g/dL Albumin 2.0 L (3.5-5.0) g/dL 01/10/22 01/10/22 01/10/22 Range/Units 05:45 11:37 11:55 RBC (4.30-5.90) m/uL Hgb (13.0-17.5) gm/dL Hct (39.0-53.0) % RDW (11.5-15.5) % Plt Count (150-450) k/uL Lymphocytes # (Manual) (1.0-4.8) k/uL ABG HCO3 31 H (21-25) mmol/L ABG O2 Saturation 97.9 H (94-97) % Carbon Dioxide (22-30) mmol/L BUN (9-20) mg/dL Creatinine (0.66-1.25) mg/dL POC Glucose (mg/dL) 133 H (75-99) mg/dL Calcium (8.4-10.2) mg/dL Ionized Calcium Cait 4.3 L (4.5-5.3) mg/dL Total Protein (6.3-8.2) g/dL Albumin (3.5-5.0) g/dL Microbiology - Last 24 Hours (Table) 01/09/22 00:00 Gram Stain - Preliminary Sputum Sputum Culture - Preliminary 01/06/22 18:45 Blood Culture Gram Stain - Final Blood Blood Culture - Final Pseudomonas aeruginosa 01/07/22 18:30 Blood Culture Gram Stain - Final Blood Blood Culture - Final Pseudomonas aeruginosa 01/07/22 23:30 Urine Culture - Final Urine,Voided Assessment and Plan Assessment: 1. Acute kidney injury, ATN nonoliguric secondary to hypotension and sepsis as well as an obstructive, component. CT of the abdomen on initial admission showed the parastomal hernia with obstruction and mild bilateral hydronephrosis and hydroureter. Currently urine output is good urine ostomy seems to be working fairly well. Continue with IV fluids 2. Incarcerated parastomal hernia and necrotic bowel status post emergency resection of the bowel with ileostomy and repair of strangulated parastomal hernia. 3. Hypotension from sepsis maintained on antibiotics and pressors. 4. History of bladder cancer status post cystectomy and ileal loop urostomy 5. Hyperkalemia associated with acute kidney injury and metabolic acidosis 6. Metabolic acidosis associated with acute kidney injury and hypotension, maintained on bicarb drip 7. Pseudomonas bacteremia, source is likely abdominal. Urine culture is negative. Plan: continue with IV fluids Discontinue IV bicarb Repeat labs in a.m. Continue with antibiotics
[2022-01-10] MEDS ORDERED: POTASSIUM CHLORIDE 10 MEQ in WATER FOR INJECTION 1 100ML.BAG IVPB STA (16:38)
[2022-01-10] MEDS ORDERED: PIPERACILLIN-TAZOBACTAM 3.375 GM in SODIUM CHLORIDE 0.9% 100 ML IVPB SCH (17:00)
[2022-01-10] MEDS: MEROPENEM 1 GM in SODIUM CHLORIDE 0.9% 100 ML IVPB SCH ×2 (17:40→23:40)
[2022-01-10] MEDS: SODIUM CHLORIDE 0.9% 1,000 ML IV SCH (17:50)
[2022-01-10 18:00] LABS: Glucose,Whole Blood 153 mg/dL (75-99)
[2022-01-10 23:37] LABS: Glucose,Whole Blood 228 mg/dL (75-99)
[2022-01-11] MEDS: NOREPINEPHRINE 32 MG in SODIUM CHLORIDE 0.9% 218 ML IV SCH ×2 (00:39→16:20)
[2022-01-11 05:37] LABS: HCT 26.3 % (39.0-53.0); HGB 8.5 gm/dL (13.0-17.5); Hypochromasia Slight; MCH 31.6 pg (25.0-35.0); MCHC 32.3 g/dL (31.0-37.0); MCV 97.9 fL (80.0-100.0); Macrocytosis Slight; Mean Platelet Volume 9.8; RBC 2.69 m/uL (4.30-5.90); WBC 5.4 k/uL (3.8-10.6)
[2022-01-11 05:39] LABS: Platelet Count 85 k/uL (150-450)
[2022-01-11 05:49] LABS: Calcium 7.7 mg/dL (8.4-10.2); Magnesium 2.2 mg/dL (1.6-2.3); Phosphorus 4.8 mg/dL (2.5-4.5); Potassium 3.4 mmol/L (3.5-5.1); Total Bilirubin 0.6 mg/dL (0.2-1.3); Total Protein 4.4 g/dL (6.3-8.2)
[2022-01-11 05:51] LABS: Glucose,Whole Blood 197 mg/dL (75-99)
[2022-01-11 05:55] LABS: ABG Base Excess 5.9 mmol/L; ABG HCO3 30 mmol/L (21-25); ABG Oxygen Saturation 98.9 % (94-97); ABG PCO2 41 mmHg (35-45); ABG PH 7.46 (7.35-7.45); ABG PO2 135 mmHg (83-108); ABG TCO2 31 mmol/L (19-24); Allen Test Performed? Yes
[2022-01-11] MEDS: fentaNYL (PF) 2,500 MCG in SODIUM CHLORIDE 0.9% 200 ML IV SCH ×2 (06:17→15:45)
[2022-01-11] MEDS: INSULIN ASPART (NovoLOG) 100 UNIT/ML VIAL SQ SCH ×3 (06:18→18:36)
[2022-01-11 06:20] LABS: Band Neutrophils % 22 %; Eosinophils # (M) 0.05 k/uL (0-0.7); Lymphocytes # (M) 0.54 k/uL (1.0-4.8); Monocytes # (M) 0.05 k/uL (0-1.0); Neutrophils % (M) 66 %; Nucleated Red Blood Cells 0 /100 WBC (0-0); Total Cells Counted 100
[2022-01-11] MEDS: SODIUM CHLORIDE 0.9% 1,000 ML IV SCH ×2 (06:20→09:40)
[2022-01-11 06:21] LABS: Anisocytosis (M) Present
--- NOTE | 2022-01-11 06:46 | XR ---
EXAMINATION TYPE: XR chest 1V portable DATE OF EXAM: 01/11/2022 5:41 AM COMPARISON:Chest radiograph from one day prior. TECHNIQUE: XR chest 1V portable Frontal view of the chest. CLINICAL INDICATION:Male, 72 years old with history of Tube placement; FINDINGS: Lungs/Pleura: Similar multifocal airspace opacities. No evidence of pneumothorax or pleural effusion. Pulmonary vascularity: Unremarkable. Heart/mediastinum: Cardiomediastinal silhouette is unremarkable. Musculoskeletal: No acute osseous pathology. Other findings: None Lines/Tubes: Endotracheal tube with distal tip is 5.5 cm above the jerry Nasogastric tube with its distal tip and side-port projecting under the diaphragm. Right internal jugular central venous catheter with distal tip at the cavoatrial junction. IMPRESSION: 1. Similar multifocal airspace opacities. 2. Stable support lines and tubes.
[2022-01-11] MEDS: POTASSIUM CHLORIDE 20 MEQ in WATER FOR INJECTION 1 100ML.BAG IVPB SCH ×2 (06:52→09:11)
[2022-01-11] MEDS: IPRATROPIUM-ALBUTEROL 3 ML NEB INHALATION SCH ×4 (07:44→19:47)
[2022-01-11] MEDS: SODIUM CHLORIDE 0.9% 50 ML with VASOPRESSIN 20 UNIT IVPB SCH ×4 (08:45→16:43)
[2022-01-11] MEDS: PANTOPRAZOLE 40 MG/10 ML VIAL IVP SCH (09:10)
[2022-01-11] MEDS: CHLORHEXIDINE GLUCONATE 15 ML CUP MUCOUS MEM SCH ×2 (09:11→19:35)
[2022-01-11] MEDS: INSULIN DETEMIR (LEVEMIR) 100 UNIT/ML SYR SQ SCH (09:11)
[2022-01-11] MEDS: MEROPENEM 1 GM in SODIUM CHLORIDE 0.9% 100 ML IVPB SCH ×2 (09:11→16:03)
--- NOTE | 2022-01-11 10:11 | P.PN ---
Progress Note - Text Progress Note Date: 01/11/22 The patient remains on the ventilator. He did have a sedation holiday yesterday. He is currently on 40% FiO2. On exam vital signs appear stable. Abdomen soft. Urostomy has less ischemic appearance. It is slightly more pink than yesterday. His ileostomy is healthy and pink there is no evidence of any significant bowel function. However he has had limited NG tube output. Status post repair of strangulated parastomal hernia. Patient sepsis has improved. Hopefully he can start weaning trials. We will start some low-dose tube feeds and give him a trial of enteric feeding.
--- NOTE | 2022-01-11 10:46 | P.PN ---
Subjective Principal diagnosis: Patient is a 72-year-old male with history of bladder cancer status post cystectomy and ileal loop urostomy, he was admitted to the hospital with abdominal pain and found to have a parastomal hernia with incarceration and bowel necrosis. Patient was taken to surgery on 01/06/2022 and had explorative laparotomy with repair of strangulated parastomal hernia and small bowel resection with ileostomy and repair of incisional hernia. Patient is seen for follow-up for acute kidney injury, mostly ATN secondary to hypotension and sepsis as well as an obstructive component. Renal function has been improving. Patient has had good output from his urostomy. Pressors are being decreased. Patient remains on IV fluids. Urine output at about 75 - 200mL an hour. Levo fed is at 0.25 mcg/kg/m. Vasopressin is off. Objective - Vital Signs Vital signs: Vital Signs Temp 99.4 F 01/11/22 08:00 Pulse 108 H 01/11/22 09:45 Resp 21 01/11/22 09:45 BP 93/57 01/11/22 09:45 Pulse Ox 98 01/11/22 09:45 Intake & Output 01/10/22 01/11/22 01/11/22 18:59 06:59 18:59 Intake Total 9983.592 7134.526 256.746 Output Total 915 1080 Balance 253.859 391.526 256.746 Weight 95.2 kg 95.3 kg Intake: IV 650 1200 .9 NS 365 840 Dextrose 5% in Water 1, 150 000 ml @ 50 mls/hr IV . Q23H [facility] with Sodium Bicarb (1 Meq/ml) 150 ml Rx#:[id number] Parenteral Electrolytes 60 360 20 ml Mvi, Adult No.4 with Vit K 10 ml Trace ( Conc-1Ml/Dose) 1 ml In Amino Acid 4.25%-D10w 1, 000 ml @ 30 mls/hr IV . Q24H ONE Rx#:[id number] Piperacillin-Tazobactam 3 75 .375 gm In Sodium Chloride 0.9% 100 ml @ 25 mls/hr IVPB Q12HR [facility] Rx #:[id number] Intake, IV Titration 518.859 271.526 256.746 Amount Norepinephrine 32 mg In 19.413 171.947 Sodium Chloride 0.9% 218 ml @ 0.44 MCG/KG/MIN 18. 954 mls/hr IV .[id number] [facility] Rx#:[id number] Sodium Chloride 0.9% 50 43.121 ml @ 0.04 UNITS/MIN 6.12 mls/hr IVPB .Q8H20M [facility] with Vasopressin 20 unit Rx#:[id number] fentaNYL (PF) 2,500 mcg 256.325 In Sodium Chloride 0.9% 200 ml @ 2.5 MCG/KG/HR 22 .975 mls/hr IV .[id number] [facility] Rx#:[id number] fentaNYL (PF) 2,500 mcg 201.72 In Sodium Chloride 0.9% 200 ml @ 2.5 MCG/KG/HR 22 .975 mls/hr IV .[id number] [facility] Rx#:[id number] propofoL 1,000 mg In 200.000 99.579 55.026 Empty Bag 1 bag @ Titrate IV .Q0M [facility] Rx#: [id number] Output: Gastric Drainage 100 Urine 915 980 ABP, PAP, CO, CI - Last Documented Arterial Blood Pressure 106/50 - Exam Patient is sedated. He is on the vent. Examination of the heart S1 and S2 Examination lungs bilateral breath sounds are heard Abdomen is soft. Ileostomy and urostomy noted. Stoma off the urostomy is dark in color. Some sloughing is noted. Examination of the lower extremities shows no evidence of edema [employer] exam cannot be performed as patient is sedated - Labs CBC & Chem 7: 01/11/22 05:00 01/11/22 05:00 Labs: Abnormal Lab Results - Last 24 Hours (Table) 01/10/22 01/10/22 01/10/22 Range/Units 11:37 11:55 17:59 RBC (4.30-5.90) m/uL Hgb (13.0-17.5) gm/dL Hct (39.0-53.0) % RDW (11.5-15.5) % Plt Count (150-450) k/uL Lymphocytes # (Manual) (1.0-4.8) k/uL ABG pH (7.35-7.45) ABG pO2 (83-108) mmHg ABG HCO3 (21-25) mmol/L ABG Total CO2 (19-24) mmol/L ABG O2 Saturation (94-97) % Potassium (3.5-5.1) mmol/L BUN (9-20) mg/dL Creatinine (0.66-1.25) mg/dL Glucose (74-99) mg/dL POC Glucose (mg/dL) 133 H 153 H (75-99) mg/dL Calcium (8.4-10.2) mg/dL Ionized Calcium Cait 4.3 L (4.5-5.3) mg/dL Phosphorus (2.5-4.5) mg/dL Total Protein (6.3-8.2) g/dL Albumin (3.5-5.0) g/dL Triglycerides 514.00 H (0.00-149.00) mg/dL 01/10/22 01/11/22 01/11/22 Range/Units 23:35 05:00 05:00 RBC 2.69 L (4.30-5.90) m/uL Hgb 8.5 L (13.0-17.5) gm/dL Hct 26.3 L (39.0-53.0) % RDW 16.0 H (11.5-15.5) % Plt Count 85 L (150-450) k/uL Lymphocytes # (Manual) 0.54 L (1.0-4.8) k/uL ABG pH (7.35-7.45) ABG pO2 (83-108) mmHg ABG HCO3 (21-25) mmol/L ABG Total CO2 (19-24) mmol/L ABG O2 Saturation (94-97) % Potassium 3.4 L (3.5-5.1) mmol/L BUN 63 H (9-20) mg/dL Creatinine 2.53 H (0.66-1.25) mg/dL Glucose 200 H (74-99) mg/dL POC Glucose (mg/dL) 228 H (75-99) mg/dL Calcium 7.7 L (8.4-10.2) mg/dL Ionized Calcium Cait (4.5-5.3) mg/dL Phosphorus 4.8 H (2.5-4.5) mg/dL Total Protein 4.4 L (6.3-8.2) g/dL Albumin 2.0 L (3.5-5.0) g/dL Triglycerides (0.00-149.00) mg/dL 01/11/22 01/11/22 Range/Units 05:36 05:50 RBC (4.30-5.90) m/uL Hgb (13.0-17.5) gm/dL Hct (39.0-53.0) % RDW (11.5-15.5) % Plt Count (150-450) k/uL Lymphocytes # (Manual) (1.0-4.8) k/uL ABG pH 7.46 H (7.35-7.45) ABG pO2 135 H (83-108) mmHg ABG HCO3 30 H (21-25) mmol/L ABG Total CO2 31 H (19-24) mmol/L ABG O2 Saturation 98.9 H (94-97) % Potassium (3.5-5.1) mmol/L BUN (9-20) mg/dL Creatinine (0.66-1.25) mg/dL Glucose (74-99) mg/dL POC Glucose (mg/dL) 197 H (75-99) mg/dL Calcium (8.4-10.2) mg/dL Ionized Calcium Cait (4.5-5.3) mg/dL Phosphorus (2.5-4.5) mg/dL Total Protein (6.3-8.2) g/dL Albumin (3.5-5.0) g/dL Triglycerides (0.00-149.00) mg/dL Microbiology - Last 24 Hours (Table) 01/09/22 00:00 Gram Stain - Final Sputum Sputum Culture - Final Vesta albicans Assessment and Plan Assessment: 1. Acute kidney injury, ATN nonoliguric secondary to hypotension and sepsis as well as an obstructive, component. CT of the abdomen on initial admission showed the parastomal hernia with obstruction and mild bilateral hydronephrosis and hydroureter. Currently urine output is good urine ostomy seems to be wor brynn fairly well. Continue with IV fluids 2. Incarcerated parastomal hernia and necrotic bowel status post emergency resection of the bowel with ileostomy and repair of strangulated parastomal hernia. 3. Hypotension from sepsis maintained on antibiotics and pressors. 4. History of bladder cancer status post cystectomy and ileal loop urostomy 5. Hyperkalemia associated with acute kidney injury and metabolic acidosis 6. Metabolic acidosis associated with acute kidney injury and hypotension, maintained on bicarb drip 7. Pseudomonas bacteremia, source is likely abdominal. Urine culture is negative. Plan: continue with IV fluids, if patient is getting TPN we can DC the normal saline. Repeat labs in a.m. Continue with antibiotics
--- NOTE | 2022-01-11 11:24 | P.PN ---
Subjective Progress Note Date: 01/11/22 Principal diagnosis: Acute hypoxic respiratory failure secondary to Sepsis and septic shock secondary to Pseudomonas bacteremia, exact source is unclear This is a 72-year-old male patient with a known history of coronary artery disease with previous stent placement, diabetes mellitus, hypertension, hyperlipidemia, BPH, chronic and ongoing tobacco dependence. He also has a hist ory of urostomy that was done at [facility] several years ago and previous bladder cancer. He had presented to the emergency room yesterday with complaints of abdominal painand distention. CAT scan of the abdomen revealed cyst addition for parastomal hernia which is obstructing the patient Werner conduit through the subcutaneous tissues. There is mild bilateral hydronephrosis. Parastomal hernia containing small bowel demonstrated pneumobilia suggesting strangulation small bowel with possible perforation. Subcutaneous gas which may represent superimposed infections secondary to the small bowel strangulation and possible perforation. White count 12.2. Hemoglobin 10.4. Sodium 138. Pot assium 4.8. BUN 47. Creatinine 3.17. Glucose 252. Plasma lactic acid 2.2. Troponin 0.013. House virus by PCR not detected. He was taken to the operating room last evening and had undergone an exploratory laparotomy, repair of strangulated parastomal hernia, small bowel resection with ileostomy, repair of incisional hernia. Blood cultures preliminary revealing gram-negative bacilli. Lactic acid up to 4.9 today. The patient had issues with hypotension and tachycardia this morning. We're consulted for ICU management. He was transferred there per medicine. 1 L of fluid resuscitation was given. Current labs revealed WBC 2.6. Hemoglobin 11.2. Sodium 133. Potassium 5.5. Chloride 105. Bicarb 17. BUN 55. Creatinine 3.80. Glucose 305. currently on Zosyn. He is seen today in consultation. He is awake and alert. He is having some surgical site pain but denies any worsening shortness of breath. No cough or congestion. No fever. The patient is seen today 01/08/2022 in follow-up in the intensive care unit. He is currently sitting up in bed. More awake and alert today. His color is better. He did receive 4 L of fluid resuscitation yesterday. He is now requiring norepinephrine currently at 0.26 mcg/kg/m. He has 0.9% normal saline running at 125 ML's per hour. Mean arterial pressure 85 currently. He is tachycardic in the 120s. Sinus. Maintaining O2 saturation the high 90s on 2 L/m per nasal cannula. Chest x-ray continues to show interstitial changes in the lung bases. No pneumothorax. Suspect basilar atelectasis versus pneumonia and possible underlying interstitial lung disease. The patient denied having had COVID-19 infection. Blood culture is positive for pseudomonas aeruginosa. He is currently on Zosyn. White count 2.6. Hemoglobin 9.8. Sodium 138. Potassium 5.7. Bicarb 16. BUN 55. Creatinine 3.65. Glucose 140. Urinalysis with large amount of blood and high WBCs. Cultures pending. Arterial blood gases on 28% FiO2 revealed a PaO2 of 73, pCO2 38 and a pH of 7.22. He remains on DuoNeb inhalations, heparin for DVT prophylaxis, Protonix for GI prophylaxis. He remains nothing by mouth. There is minimal output of the ileostomy. Midlin e dressing dry and intact. Urostomy with adequate output. Currently in a 3.2 L positive balance Reevaluated today on 01/09/2022, patient remains in the ICU, intubated and mechanically ventilated. Clinical status deteriorated last night, patient had to be intubated. He is now on assist control rate of 30 tidal volume 500 FiO2 50% and PEEP of 8. ABG showed a pO2 of 125 pCO2 46 pH of 7.37. Patient had to be placed on bicarb drip yesterday and he is now on bicarbonate 50 mL per hour. His FiO2 was decreased down to 40% after reviewing the ABG. Patient is requiring norepinephrine at 0.25 he is also requiring vasopressin at 0.04. Received multiple fluid boluses yesterday, and the patient clearly has a septic shock presentation. He is on vasopressin at 0.04. He is also on fentanyl at 2 mcg/kg/hour, propofol at 35 mcg/kg/m, patient is not requiring any paralysis. Chest x-ray is showing a picture of congestive heart failure, possibly some pneumonia/superimposed. His cultures have been positive for pseudomonas aeruginosa. Patient remains on Zosyn. Urine cultures are nondiagnostic, sputum cultures are pending. WBC count today is 3.8 hemoglobin is 8.8. Complete metabolic profile is relatively unremarkable except for worsening renal profile with a BUN up to 59 and creatinine 3.15, being followed by nephrology on the case. Reevaluated today on 01/10/2022, patient remains in the ICU, intubated and mechanically ventilated sedated, but not paralyzed. Patient is on assist cont rol mode of mechanical ventilation rate of 20, volume 500 FiO2 40% and PEEP of 8. ABG showed a pO2 of 106 pCO2 45 pH of 7.45. Patient is still requiring hemodynamic support, he is on vasopressin at 0.03 units per minute, norepinephrine at 0.24 mcg/kg/m. Total of 22 mcg/m. He is on fentanyl at 2 mcg/kg/m. And on propofol at 35 mcg/kg/m. Chest x-ray continues to show bilateral interstitial edema and/or infiltrates. Patient received significant amount of fluids on his initial presentation when he was septic and hypotensive, later on he was placed on pressors in the form of vasopressin and norepinephrine. CVP today is 8, hence no need for more fluids and no need for aggressive diuresis. Patient remains on bicarb drip at 50 mL per hour, and I will go ahead and discontinue bicarbonate based on his electrolytes and based on his ABG. His bicarb is 31. Renal profile today is improving, it was as high as 3.8, creatinine now is 2.72. WBC count is 4.5 hemoglobin is 8.6. Patient remains on Zosyn for his Pseudomonas bacteremia and I believe the most likely source of his Pseudomonas is his GI tract patient remains on GI and DVT prophylaxis. Platelets are 98,000, not unexpected considering the patient is septic and has septic shock on presentation Reevaluated today on 01/11/2022, patient remains in the ICU, intubated and mechanically ventilated. He is on assist control rate of 2012 volume 500 FiO2 40% and PEEP of 8. Today I cut down the PEEP down to 6. ABG showed a pO2 of 13 5 pCO2 41 pH of 7.46. WBC count is 5.4 hemoglobin 8.5. Electrolytes are normal, renal profile is improving with a BUN 63 creatinine is down to 2.53. Creatinine was as high as 3.80 few days ago. Chest x-ray continues to show bilateral interstitial infiltrates/interstitial edema but nonetheless it is improving. Patient remains empirically on antibiotics for his Pseudomonas bacteremia and sepsis as well as septic shock. His platelets are noted to go down further today, hence I'm holding the heparin, patient will have Venodyne boots, and we will order a heparin-induced thrombocytopenia profile. Noted today that the patient was changed to Merrem instead of Zosyn. Mostly because the sensitivity on the pseudomonas seems to be intermediate to Zosyn. However it is sensitive to Merrem. Patient is still requiring norepinephrine he is on 0.21 mcg/kg/minute, and he is off vasopressin. I have a feeling that the patient will likely even though much less on norepinephrine if we cut down his sedation especially his fentanyl. And I plan to do so. We'll try to manage the patient's sedation only with propofol if possible. Objective - Vital Signs Vital signs: Vital Signs Temp 99.4 F 01/11/22 08:00 Pulse 108 H 01/11/22 09:45 Resp 21 01/11/22 09:45 BP 93/57 01/11/22 09:45 Pulse Ox 98 01/11/22 09:45 Intake & Output 01/10/22 01/11/22 01/11/22 18:59 06:59 18:59 Intake Total 2563.897 2331.526 256.746 Output Total 915 1080 Balance 253.859 391.526 256.746 Weight 95.2 kg 95.3 kg Intake: IV 650 1200 .9 NS 365 840 Dextrose 5% in Water 1, 150 000 ml @ 50 mls/hr IV . Q23H [facility] with Sodium Bicarb (1 Meq/ml) 150 ml Rx#:[id number] Parenteral Electrolytes 60 360 20 ml Mvi, Adult No.4 with Vit K 10 ml Trace ( Conc-1Ml/Dose) 1 ml In Amino Acid 4.25%-D10w 1, 000 ml @ 30 mls/hr IV . Q24H [facility] Rx#:[id number] Piperacillin-Tazobactam 3 75 .375 gm In Sodium Chloride 0.9% 100 ml @ 25 mls/hr IVPB Q12HR [facility] Rx #:[id number] Intake, IV Titration 518.859 271.526 256.746 Amount Norepinephrine 32 mg In 19.413 171.947 Sodium Chloride 0.9% 218 ml @ 0.44 MCG/KG/MIN 18. 954 mls/hr IV .[id number] [facility] Rx#:[id number] Sodium Chloride 0.9% 50 43.121 ml @ 0.04 UNITS/MIN 6.12 mls/hr IVPB .Q8H20M [facility] with Vasopressin 20 unit Rx#:[id number] fentaNYL (PF) 2,500 mcg 256.325 In Sodium Chloride 0.9% 200 ml @ 2.5 MCG/KG/HR 22 .975 mls/hr IV .[id number] [facility] Rx#:[id number] fentaNYL (PF) 2,500 mcg 201.72 In Sodium Chloride 0.9% 200 ml @ 2.5 MCG/KG/HR 22 .975 mls/hr IV .[id number] [facility] Rx#:[id number] propofoL 1,000 mg In 200.000 99.579 55.026 Empty Bag 1 bag @ Titrate IV .Q0M [facility] Rx#: [id number] Output: Gastric Drainage 100 Urine 915 980 ABP, PAP, CO, CI - Last Documented Arterial Blood Pressure 106/50 - Exam GENERAL EXAM: Revealed a 72-year-old white male intubated, mechanically ventilated, sedated, on propofol and fentanyl. Still requiring norepinephrine but off vasopressin. HEAD: Normocephalic. Atraumatic. EYES: Normal reaction of pupils, equal size. NOSE: Clear with pink turbinates. THROAT: No erythema or exudates. Endotracheal tube and orogastric tube are intact. NECK: No masses, no JVD. CHEST: Symmetrical chest expansion, no deformity. LUNGS: Fine crackles at the bases. CVS: Irregular irregular rhythm. S1 and S2 normal with no audible murmur, regular rhythm. ABDOMEN: Urostomy on the left, ileostomy on the right, midline dressing dry and intact. SKIN: No rashes CENTRAL NERVOUS SYSTEM: Cannot assess, patient is fully sedated. On propofol and fentanyl. EXTREMITIES: Cannot assess - Labs CBC & Chem 7: 01/11/22 05:00 01/11/22 05:00 Labs: Abnormal Lab Results - Last 24 Hours (Table) 01/10/22 01/10/22 01/10/22 Range/Units 11:37 11:55 17:59 RBC (4.30-5.90) m/uL Hgb (13.0-17.5) gm/dL Hct (39.0-53.0) % RDW (11.5-15.5) % Plt Count (150-450) k/uL Lymphocytes # (Manual) (1.0-4.8) k/uL ABG pH (7.35-7.45) ABG pO2 (83-108) mmHg ABG HCO3 (21-25) mmol/L ABG Total CO2 (19-24) mmol/L ABG O2 Saturation (94-97) % Potassium (3.5-5.1) mmol/L BUN (9-20) mg/dL Creatinine (0.66-1.25) mg/dL Glucose (74-99) mg/dL POC Glucose (mg/dL) 133 H 153 H (75-99) mg/dL Calcium (8.4-10.2) mg/dL Ionized Calcium Cait 4.3 L (4.5-5.3) mg/dL Phosphorus (2.5-4.5) mg/dL Total Protein (6.3-8.2) g/dL Albumin (3.5-5.0) g/dL Triglycerides 514.00 H (0.00-149.00) mg/dL 01/10/22 01/11/22 01/11/22 Range/Units 23:35 05:00 05:00 RBC 2.69 L (4.30-5.90) m/uL Hgb 8.5 L (13.0-17.5) gm/dL Hct 26.3 L (39.0-53.0) % RDW 16.0 H (11.5-15.5) % Plt Count 85 L (150-450) k/uL Lymphocytes # (Manual) 0.54 L (1.0-4.8) k/uL ABG pH (7.35-7.45) ABG pO2 (83-108) mmHg ABG HCO3 (21-25) mmol/L ABG Total CO2 (19-24) mmol/L ABG O2 Saturation (94-97) % Potassium 3.4 L (3.5-5.1) mmol/L BUN 63 H (9-20) mg/dL Creatinine 2.53 H (0.66-1.25) mg/dL Glucose 200 H (74-99) mg/dL POC Glucose (mg/dL) 228 H (75-99) mg/dL Calcium 7.7 L (8.4-10.2) mg/dL Ionized Calcium Cait (4.5-5.3) mg/dL Phosphorus 4.8 H (2.5-4.5) mg/dL Total Protein 4.4 L (6.3-8.2) g/dL Albumin 2.0 L (3.5-5.0) g/dL Triglycerides (0.00-149.00) mg/dL 01/11/22 01/11/22 Range/Units 05:36 05:50 RBC (4.30-5.90) m/uL Hgb (13.0-17.5) gm/dL Hct (39.0-53.0) % RDW (11.5-15.5) % Plt Count (150-450) k/uL Lymphocytes # (Manual) (1.0-4.8) k/uL ABG pH 7.46 H (7.35-7.45) ABG pO2 135 H (83-108) mmHg ABG HCO3 30 H (21-25) mmol/L ABG Total CO2 31 H (19-24) mmol/L ABG O2 Saturation 98.9 H (94-97) % Potassium (3.5-5.1) mmol/L BUN (9-20) mg/dL Creatinine (0.66-1.25) mg/dL Glucose (74-99) mg/dL POC Glucose (mg/dL) 197 H (75-99) mg/dL Calcium (8.4-10.2) mg/dL Ionized Calcium Cait (4.5-5.3) mg/dL Phosphorus (2.5-4.5) mg/dL Total Protein (6.3-8.2) g/dL Albumin (3.5-5.0) g/dL Triglycerides (0.00-149.00) mg/dL Microbiology - Last 24 Hours (Table) 01/09/22 00:00 Gram Stain - Final Sputum Sputum Culture - Final Vesta albicans Assessment and Plan Assessment: Impression: Acute hypoxic respiratory failure secondary to septic shock, secondary to Pseudomonas aeruginosa bacteremia, most likely is GI source. patient presented initially with strangulation of the small bowel with possible perforation and had small bowel and pneumobilia. Patient is status post exploratory laparotomy repair of strangulated parastomal hernia small bowel resection and ileostomy with repair of incisional hernia on 01/06/2022, postoperative day #5. Patient was intubated on 01/08/20, and remains intubated , sedated, and mechanically ventilated. Pseudomonas aeruginosa bacteremia Hypotension secondary to septic shock Lactic acidosis secondary to sepsis and septic shock Acute kidney injury secondary to sepsis and septic shock, suspect acute tubular necrosis, today seems to be improving. Hyperkalemia secondary to acute kidney injury and septic shock/hypotension, resolved. History of bladder cancer with previous urostomy Type 2 diabetes. Dyslipidemia. Coronary artery disease and previous stent placement. Tobacco dependence syndrome. New onset atrial fibrillation being addressed by cardiology. Recommendation: Continue ventilatory support. Daily assessment of mental status or at least a sedation holiday on a daily basis. Continue hemodynamic support. Patient is off vasopressin but norepinephrine is being titrated down. Continue sedation, patient is not ready for weaning. Continue Merrem, patient is off Zosyn. Continue TPN./Nutritional support Discontinue heparin, order heparin-induced thrombocytopenia profile. Continue GI and DVT prophylaxis. Prognosis remains relatively poor and guarded. Patient is critically ill. Critical care time is over 30 minutes. . Time with Patient: Greater than 30
[2022-01-11 11:41] LABS: Glucose,Whole Blood 208 mg/dL (75-99)
--- NOTE | 2022-01-11 13:18 | P.PN ---
Subjective HISTORY OF PRESENTING ILLNESS Patient is pleasant 72-year-old male with history of CAD with prior PCI, diabetes mellitus type 2, hypertension, hyperlipidemia, BPH, tobacco abuse, bladder cancer with urostomy. Patient had presented to the hospital with abdominal pain and distention and computed tomography scan showed hernia with small bowel perforation and therefore underwent exploratory laparotomy. Since then patient was found to be septic with Pseudomonas bacteremia as well as acute kidney injury. Patient has been having worsened respiratory distress yesterday and eventually intubated. He has had sinus tachycardia throughout his hospit alization with heart rates in the 120s however yesterday went into A. fib with RVR with heart rates in the 130s to 150s. Patient was placed on amiodarone drip and currently this morning is in sinus rhythm with frequent PVCs and PACs. 01/10 Patient seen and examined. Patient remains intubated and sedated. No further episodes of A. fib however frequent PACs and PVCs. No anticoagulation given rec ent surgery. Remains on pressors for septic shock. 01/11 seen and examined. Patient remains on ventilator with FiO2 of 35% and a PEEP of 6. Remains on a low-dose of norepinephrine at 0.23. Echo was performed 01/09/2022 however report not transferred over however on personal review EF appears 35-40% with global hypokinesis and no significant valvular disease, mild aortic stenosis. Patient to go in A. fib with mild RVR heart rates in the 110 range overnight. Converted back to sinus rhythm this morning. REVIEW OF SYSTEMS Unable to exam secondary to intubated and sedated PHYSICAL EXAMINATION Vital signs reviewed. CONSTITUTIONAL: No apparent distress, ill appearing, sedated on vent HEENT: Head is normocephalic. Pupils are equal, round. Sclerae anicteric. Mucous membranes of the mouth are moist. No JVD. No carotid bruit. CHEST EXAMINATION: Lungs are clear to auscultation. No chest wall tenderness is noted on palpation or with deep breathing. HEART EXAMINATION: Regular rate and rhythm. S1, S2 heard. No murmurs, gallops or rub. ABDOMEN: Soft, nontender. Positive bowel sounds. EXTREMITIES: 2+ peripheral pulses, no lower extremity edema and no calf tenderness. NEUROLOGIC EXAMINATION: Patient is sedated and intubated ASSESSMENT 1. New-onset atrial fibrillation, currently sinus rhythm s/p amio for 24 hrs 2. Status post small bowel perforation and exploratory laparotomy with repair of strangulated hernia 3. Pseudomonas bacteremia 4. Septic shock on vasopressors 5. Acute kidney injury 6. Hyperkalemia 7. Coronary artery disease with prior history of PCI 8. Diabetes mellitus type 2 9. Tobacco abuse 10. Anemia 11. New cardiomyopathy EF 35-40% may be related to sepsis versus other, prior EF 2014 EF 50-55% Plan: Continue supportive care. Ideally restart antiplatelets as well as anticoagulation pending approval by surgery. Patient to go back in A. fib with mild RVR overnight for approximately 12 hours. Back in and is currently. We will however start amiodarone to attempt to further control him during ICU admission. Ideally start heart failure regimen if blood pressure can tolerate however currently hypotensive. Decrease EF may be related to A. fib with RVR, sepsis versus other. Continue to monitor. Objective - Vital Signs Vital signs: Vital Signs Temp 99.1 F 01/11/22 12:00 Pulse 120 H 01/11/22 12:00 Resp 21 01/11/22 12:00 BP 107/57 01/11/22 12:00 Pulse Ox 98 01/11/22 12:00 Intake & Output 01/10/22 01/11/22 01/11/22 18:59 06:59 18:59 Intake Total 5703.756 0059.526 965.606 Output Total 915 1080 485 Balance 253.859 391.526 480.606 Weight 95.2 kg 95.3 kg Intake: IV 650 1200 700 .9 NS 365 840 280 Dextrose 5% in Water 1, 150 000 ml @ 50 mls/hr IV . Q23H [facility] with Sodium Bicarb (1 Meq/ml) 150 ml Rx#:[id number] Parenteral Electrolytes 60 360 120 20 ml Mvi, Adult No.4 with Vit K 10 ml Trace ( Conc-1Ml/Dose) 1 ml In Amino Acid 4.25%-D10w 1, 000 ml @ 30 mls/hr IV . Q24H [facility] Rx#:[id number] Piperacillin-Tazobactam 3 75 100 .375 gm In Sodium Chloride 0.9% 100 ml @ 25 mls/hr IVPB Q12HR [facility] Rx #:[id number] Potassium Chloride 20 meq 200 In Water For Injection 1 100ml.bag @ 50 mls/hr IVPB Q2H [facility] Rx#: [id number] Intake, IV Titration 518.859 271.526 265.606 Amount Norepinephrine 32 mg In 19.413 171.947 Sodium Chloride 0.9% 218 ml @ 0.44 MCG/KG/MIN 18. 954 mls/hr IV .[id number] [facility] Rx#:[id number] Sodium Chloride 0.9% 50 43.121 ml @ 0.04 UNITS/MIN 6.12 mls/hr IVPB .Q8H20M [facility] with Vasopressin 20 unit Rx#:[id number] fentaNYL (PF) 2,500 mcg 256.325 In Sodium Chloride 0.9% 200 ml @ 2.5 MCG/KG/HR 22 .975 mls/hr IV .[id number] [facility] Rx#:[id number] fentaNYL (PF) 2,500 mcg 201.72 In Sodium Chloride 0.9% 200 ml @ 2.5 MCG/KG/HR 22 .975 mls/hr IV .[id number] [facility] Rx#:[id number] propofoL 1,000 mg In 200.000 99.579 63.886 Empty Bag 1 bag @ Titrate IV .Q0M [facility] Rx#: [id number] Output: Gastric Drainage 100 Urine 915 980 485 ABP, PAP, CO, CI - Last Documented Arterial Blood Pressure 83/59 - Labs CBC & Chem 7: 01/11/22 05:00 01/11/22 05:00 Labs: Abnormal Lab Results - Last 24 Hours (Table) 01/10/22 01/10/22 01/10/22 Range/Units 11:55 17:59 23:35 RBC (4.30-5.90) m/uL Hgb (13.0-17.5) gm/dL Hct (39.0-53.0) % RDW (11.5-15.5) % Plt Count (150-450) k/uL Lymphocytes # (Manual) (1.0-4.8) k/uL ABG pH (7.35-7.45) ABG pO2 (83-108) mmHg ABG HCO3 (21-25) mmol/L ABG Total CO2 (19-24) mmol/L ABG O2 Saturation (94-97) % Potassium (3.5-5.1) mmol/L BUN (9-20) mg/dL Creatinine (0.66-1.25) mg/dL Glucose (74-99) mg/dL POC Glucose (mg/dL) 153 H 228 H (75-99) mg/dL Calcium (8.4-10.2) mg/dL Phosphorus (2.5-4.5) mg/dL Total Protein (6.3-8.2) g/dL Albumin (3.5-5.0) g/dL Triglycerides 514.00 H (0.00-149.00) mg/dL 01/11/22 01/11/22 01/11/22 Range/Units 05:00 05:00 05:36 RBC 2.69 L (4.30-5.90) m/uL Hgb 8.5 L (13.0-17.5) gm/dL Hct 26.3 L (39.0-53.0) % RDW 16.0 H (11.5-15.5) % Plt Count 85 L (150-450) k/uL Lymphocytes # (Manual) 0.54 L (1.0-4.8) k/uL ABG pH 7.46 H (7.35-7.45) ABG pO2 135 H (83-108) mmHg ABG HCO3 30 H (21-25) mmol/L ABG Total CO2 31 H (19-24) mmol/L ABG O2 Saturation 98.9 H (94-97) % Potassium 3.4 L (3.5-5.1) mmol/L BUN 63 H (9-20) mg/dL Creatinine 2.53 H (0.66-1.25) mg/dL Glucose 200 H (74-99) mg/dL POC Glucose (mg/dL) (75-99) mg/dL Calcium 7.7 L (8.4-10.2) mg/dL Phosphorus 4.8 H (2.5-4.5) mg/dL Total Protein 4.4 L (6.3-8.2) g/dL Albumin 2.0 L (3.5-5.0) g/dL Triglycerides (0.00-149.00) mg/dL 01/11/22 01/11/22 01/11/22 Range/Units 05:50 11:36 11:39 RBC (4.30-5.90) m/uL Hgb (13.0-17.5) gm/dL Hct (39.0-53.0) % RDW (11.5-15.5) % Plt Count (150-450) k/uL Lymphocytes # (Manual) (1.0-4.8) k/uL ABG pH (7.35-7.45) ABG pO2 (83-108) mmHg ABG HCO3 (21-25) mmol/L ABG Total CO2 (19-24) mmol/L ABG O2 Saturation (94-97) % Potassium (3.5-5.1) mmol/L BUN (9-20) mg/dL Creatinine (0.66-1.25) mg/dL Glucose (74-99) mg/dL POC Glucose (mg/dL) 197 H 208 H (75-99) mg/dL Calcium (8.4-10.2) mg/dL Phosphorus (2.5-4.5) mg/dL Total Protein (6.3-8.2) g/dL Albumin 1.9 L (3.5-5.0) g/dL Triglycerides (0.00-149.00) mg/dL Microbiology - Last 24 Hours (Table) 01/09/22 00:00 Gram Stain - Final Sputum Sputum Culture - Final Vesta albicans
[2022-01-11] MEDS: AMIODARONE 200 MG TAB PO SCH ×2 (16:04→19:35)
[2022-01-11] MEDS: ASPIRIN 81 MG PO SCH (16:04)
[2022-01-11] MEDS: 1: PARENTERAL ELECTROLYTES 20 ML, MVI, ADULT NO.4 WITH VIT K 10 ML, TRACE (CONC-1ML/DOSE IV SCH ×4 (16:04)
[2022-01-11] MEDS: HYDROmorphone 1 MG/ML 1 ML SYRINGE IVP PRN ×2 (16:05→19:35)
--- NOTE | 2022-01-11 16:17 | PN ---
PROGRESS NOTE I am covering for Dr. Jimenez. DATE OF SERVICE: 01/11/2022 This 72-year-old gentleman who was admitted with multiple medical issues, including exploratory laparotomy with repair of strangulated parastomal hernia, also had atrial fibrillation as well as Pseudomonas sepsis. The patient also had acute hypoxic respiratory failure. The patient is mechanically ventilated and sedated and monitored in the ICU at this time. Patient is on broad-spectrum IV antibiotics. The vent settings are noted. Multiple consultants are following the patient closely. Past medical history reviewed. Review of systems could not be taken; the patient is sedated. CURRENT MEDICATIONS: Reviewed. They include Tylenol, [place], DuoNeb, Cordarone, hydromorphone, Levemir, meropenem. PHYSICAL EXAMINATION: Patient is mechanically and sedated. Vent settings are noted. Pulse 87, blood pressure 101/50, respiration 20, temperature normal, pulse ox 97% on mechanical ventilation. HEENT: Conjunctivae normal. NECK: No jugular venous distention. CARDIOVASCULAR: S1, S2 muffled. RESPIRATORY SYSTEM: A few scattered rhonchi. ABDOMEN: Soft. Status post surgery, LEGS: No edema. No swelling. NERVOUS SYSTEM: Patient is mechanically ventilated and sedated. LABS: Hemoglobin 8.5. ABGs noted. Sodium 140, potassium 3.5, creatinine is 2.53. ASSESSMENT: 1. Acute strangulation and parastomal hernia with small-bowel resection and ileostomy with repair of incisional hernia and status post exploratory laparotomy. 2. Acute hypoxic respiratory failure secondary to sepsis and septic shock. 3. Pseudomonas aeruginosa bacteremia. 4. Atrial fibrillation with fast ventricular rate. 5. Lactic acidosis. 6. Diabetes mellitus, type 2. 7. Hyperlipidemia. 8. History of coronary artery disease and stents. RECOMMENDATIONS AND DISCUSSION: In this 72-year-old gentleman who presented with multiple complex medical issues, would recommend to continue the current medications, continue with symptomatic treatment. Continue the mechanical ventilation. Sputum culture also showed some Vesta albicans and blood culture showed Pseudomonas aeruginosa last done on 01/07. Recommend repeat blood cultures and add antifungals to the current regimen. Guarded prognosis. Further recommendations to follow. MMODL / IJN: [id number] /
[2022-01-11] MEDS: FLUCONAZOLE IN NACL,ISO-OSM 100 MG in SALINE 1 50ML.BAG IVPB SCH (16:20)
[2022-01-11 17:41] LABS: Glucose,Whole Blood 200 mg/dL (75-99)
[2022-01-11 23:59] LABS: Glucose,Whole Blood 221 mg/dL (75-99)
[2022-01-12] MEDS: INSULIN ASPART (NovoLOG) 100 UNIT/ML VIAL SQ SCH ×4 (00:01→19:23)
[2022-01-12] MEDS: MEROPENEM 1 GM in SODIUM CHLORIDE 0.9% 100 ML IVPB SCH ×3 (00:02→16:16)
[2022-01-12] MEDS: SODIUM CHLORIDE 0.9% 50 ML with VASOPRESSIN 20 UNIT IVPB SCH ×6 (00:03→19:20)
[2022-01-12] MEDS: fentaNYL (PF) 2,500 MCG in SODIUM CHLORIDE 0.9% 200 ML IV SCH ×2 (00:08→19:18)
[2022-01-12 05:44] LABS: Basophils % (A) 0 %; Eosinophils # (A) 0.1 k/uL (0-0.7); Eosinophils % (A) 1 %; HCT 25.7 % (39.0-53.0); HGB 8.1 gm/dL (13.0-17.5); Hypochromasia Slight; Lymphocytes # (A) 0.3 k/uL (1.0-4.8); Lymphocytes % (A) 4 %; MCH 31.2 pg (25.0-35.0); MCHC 31.4 g/dL (31.0-37.0); MCV 99.4 fL (80.0-100.0); Macrocytosis Slight; Mean Platelet Volume 9.2; Monocytes # (A) 0.3 k/uL (0-1.0); Monocytes % (A) 3 %; Neutrophils # (A) 7.9 k/uL (1.3-7.7); Neutrophils % (A) 91 %; RBC 2.59 m/uL (4.30-5.90); RDW 15.9 % (11.5-15.5); WBC 8.7 k/uL (3.8-10.6)
[2022-01-12 05:52] LABS: Glucose,Whole Blood 265 mg/dL (75-99)
[2022-01-12 05:53] LABS: Albumin 1.8 g/dL (3.5-5.0); Calcium 7.7 mg/dL (8.4-10.2); Phosphorus 3.7 mg/dL (2.5-4.5); Potassium 3.4 mmol/L (3.5-5.1); Total Bilirubin 0.5 mg/dL (0.2-1.3); Total Protein 4.2 g/dL (6.3-8.2)
[2022-01-12] MEDS: NOREPINEPHRINE 32 MG in SODIUM CHLORIDE 0.9% 218 ML IV SCH ×2 (05:54→20:05)
[2022-01-12] MEDS ORDERED: Potassium Replacement Protocol 1 EACH MISC MISCELLANE PRN (05:58)
[2022-01-12 06:02] LABS: Platelet Count 83 k/uL (150-450)
[2022-01-12 06:05] LABS: ABG HCO3 29 mmol/L (21-25); ABG Oxygen Saturation 97.4 % (94-97); ABG PCO2 42 mmHg (35-45); ABG PH 7.45 (7.35-7.45); ABG PO2 97 mmHg (83-108); ABG TCO2 30 mmol/L (19-24); Allen Test Performed? Yes
[2022-01-12] MEDS: INSULIN DETEMIR (LEVEMIR) 100 UNIT/ML SYR SQ SCH (06:25)
[2022-01-12] MEDS: POTASSIUM BICARBONATE/CIT AC 20 MEQ TABLET.EFF NG-TUBE SCH ×2 (06:25→09:02)
[2022-01-12] MEDS ORDERED: FUROSEMIDE 10 MG/ML 4 ML VIAL IV STA (08:05)
[2022-01-12] MEDS: IPRATROPIUM-ALBUTEROL 3 ML NEB INHALATION SCH ×4 (08:19→19:55)
--- NOTE | 2022-01-12 08:46 | XR ---
EXAMINATION TYPE: XR chest 1V portable DATE OF EXAM: 01/12/2022 COMPARISON: 01/11/2022 INDICATION: Tube placement difficulty breathing TECHNIQUE: Single frontal view of the chest is obtained. FINDINGS: The heart size is normal. The pulmonary vasculature is normal. Mild diffuse increased lung markings are present greater at the left base and periphery of the right lung. Findings are stable. Endotracheal tube tip is above the jerry. Nasogastric tube transverses the thorax. Right central juan david ous catheter tip is within the right atrium. IMPRESSION: 1. Stable diffuse infiltrates. 2. Lines and catheters discussed above.
--- NOTE | 2022-01-12 08:59 | P.PN ---
Subjective Progress Note Date: 01/11/22 Principal diagnosis: Pseudomonas bacteremia Patient is 72-year-old male, presented to hospital with abdominal pain has been diagnosed with strangulated parastomal hernia, in this patient was status post exploratory laparotomy, small bowel resection with ileostomy and re pair of incisional hernia patient was noticed to have a positive blood culture has been finalized with pseudomonas aeruginosa, patient was transferred to the ICU because of hypotension. On today's evaluation that is 01/11/2022, the patient afebrile, patient intubated on the vent and FiO2 is currently stable, the patient is hemodynamically stable not requiring any pressor support no significant purulent secretions through the ET or diarrhea reported by the nursing staff Objective - Vital Signs Vital signs: Vital Signs Temp 99.1 F 01/11/22 12:00 Pulse 120 H 01/11/22 12:00 Resp 21 01/11/22 12:00 BP 107/57 01/11/22 12:00 Pulse Ox 98 01/11/22 12:00 Intake & Output 01/10/22 01/11/22 01/11/22 18:59 06:59 18:59 Intake Total 2368.823 7521.526 965.606 Output Total 915 1080 485 Balance 253.859 391.526 480.606 Weight 95.2 kg 95.3 kg Intake: IV 650 1200 700 .9 NS 365 840 280 Dextrose 5% in Water 1, 150 000 ml @ 50 mls/hr IV . Q23H [facility] with Sodium Bicarb (1 Meq/ml) 150 ml Rx#:[id number] Parenteral Electrolytes 60 360 120 20 ml Mvi, Adult No.4 with Vit K 10 ml Trace ( Conc-1Ml/Dose) 1 ml In Amino Acid 4.25%-D10w 1, 000 ml @ 30 mls/hr IV . Q24H [facility] Rx#:[id number] Piperacillin-Tazobactam 3 75 100 .375 gm In Sodium Chloride 0.9% 100 ml @ 25 mls/hr IVPB Q12HR [facility] Rx #:[id number] Potassium Chloride 20 meq 200 In Water For Injection 1 100ml.bag @ 50 mls/hr IVPB Q2H [facility] Rx#: [id number] Intake, IV Titration 518.859 271.526 265.606 Amount Norepinephrine 32 mg In 19.413 171.947 Sodium Chloride 0.9% 218 ml @ 0.44 MCG/KG/MIN 18. 954 mls/hr IV .[id number] [facility] Rx#:[id number] Sodium Chloride 0.9% 50 43.121 ml @ 0.04 UNITS/MIN 6.12 mls/hr IVPB .Q8H20M [facility] with Vasopressin 20 unit Rx#:[id number] fentaNYL (PF) 2,500 mcg 256.325 In Sodium Chloride 0.9% 200 ml @ 2.5 MCG/KG/HR 22 .975 mls/hr IV .[id number] [facility] Rx#:[id number] fentaNYL (PF) 2,500 mcg 201.72 In Sodium Chloride 0.9% 200 ml @ 2.5 MCG/KG/HR 22 .975 mls/hr IV .[id number] [facility] Rx#:[id number] propofoL 1,000 mg In 200.000 99.579 63.886 Empty Bag 1 bag @ Titrate IV .Q0M [facility] Rx#: [id number] Output: Gastric Drainage 100 Urine 915 980 485 ABP, PAP, CO, CI - Last Documented Arterial Blood Pressure 83/59 - Exam GENERAL DESCRIPTION: An elderly male intubated on the vent RESPIRATORY SYSTEM: Unlabored breathing , decreased breath sounds at bases HEART: S1 S2 regular rate and rhythm , ABDOMEN: Soft , mild distention, no tenderness EXTREMITIES: No edema feeT - Labs CBC & Chem 7: 01/12/22 05:25 01/12/22 05:25 Labs: Abnormal Lab Results - Last 24 Hours (Table) 01/10/22 01/10/22 01/10/22 Range/Units 11:55 17:59 23:35 RBC (4.30-5.90) m/uL Hgb (13.0-17.5) gm/dL Hct (39.0-53.0) % RDW (11.5-15.5) % Plt Count (150-450) k/uL Lymphocytes # (Manual) (1.0-4.8) k/uL ABG pH (7.35-7.45) ABG pO2 (83-108) mmHg ABG HCO3 (21-25) mmol/L ABG Total CO2 (19-24) mmol/L ABG O2 Saturation (94-97) % Potassium (3.5-5.1) mmol/L BUN (9-20) mg/dL Creatinine (0.66-1.25) mg/dL Glucose (74-99) mg/dL POC Glucose (mg/dL) 153 H 228 H (75-99) mg/dL Calcium (8.4-10.2) mg/dL Phosphorus (2.5-4.5) mg/dL Total Protein (6.3-8.2) g/dL Albumin (3.5-5.0) g/dL Triglycerides 514.00 H (0.00-149.00) mg/dL 01/11/22 01/11/22 01/11/22 Range/Units 05:00 05:00 05:36 RBC 2.69 L (4.30-5.90) m/uL Hgb 8.5 L (13.0-17.5) gm/dL Hct 26.3 L (39.0-53.0) % RDW 16.0 H (11.5-15.5) % Plt Count 85 L (150-450) k/uL Lymphocytes # (Manual) 0.54 L (1.0-4.8) k/uL ABG pH 7.46 H (7.35-7.45) ABG pO2 135 H (83-108) mmHg ABG HCO3 30 H (21-25) mmol/L ABG Total CO2 31 H (19-24) mmol/L ABG O2 Saturation 98.9 H (94-97) % Potassium 3.4 L (3.5-5.1) mmol/L BUN 63 H (9-20) mg/dL Creatinine 2.53 H (0.66-1.25) mg/dL Glucose 200 H (74-99) mg/dL POC Glucose (mg/dL) (75-99) mg/dL Calcium 7.7 L (8.4-10.2) mg/dL Phosphorus 4.8 H (2.5-4.5) mg/dL Total Protein 4.4 L (6.3-8.2) g/dL Albumin 2.0 L (3.5-5.0) g/dL Triglycerides (0.00-149.00) mg/dL 01/11/22 01/11/22 01/11/22 Range/Units 05:50 11:36 11:39 RBC (4.30-5.90) m/uL Hgb (13.0-17.5) gm/dL Hct (39.0-53.0) % RDW (11.5-15.5) % Plt Count (150-450) k/uL Lymphocytes # (Manual) (1.0-4.8) k/uL ABG pH (7.35-7.45) ABG pO2 (83-108) mmHg ABG HCO3 (21-25) mmol/L ABG Total CO2 (19-24) mmol/L ABG O2 Saturation (94-97) % Potassium (3.5-5.1) mmol/L BUN (9-20) mg/dL Creatinine (0.66-1.25) mg/dL Glucose (74-99) mg/dL POC Glucose (mg/dL) 197 H 208 H (75-99) mg/dL Calcium (8.4-10.2) mg/dL Phosphorus (2.5-4.5) mg/dL Total Protein (6.3-8.2) g/dL Albumin 1.9 L (3.5-5.0) g/dL Triglycerides (0.00-149.00) mg/dL Microbiology - Last 24 Hours (Table) 01/09/22 00:00 Gram Stain - Final Sputum Sputum Culture - Final Vesta albicans Assessment and Plan (1) Bacteremia Current Visit: Yes Status: Acute Code(s): R78.81 - BACTEREMIA SNOMED Code(s): 3356598 Plan: 1-Patient with pseudomonas bacteremia source is likely abdominal and this patient presented to the hospital with incarcerated hernia status post small bowel resection and ileostomy and repair of the hernia patient did have worsening of his respiratory status requiring intubation, patient pseudomonas is intermediate sensitivity to Zosyn and cefepime, patient is currently covered with meropenem and will monitor his clinical course closely 2-positive sputum culture with Vesta likely colonizer Time with Patient: Less than 30
[2022-01-12] MEDS: 1: PARENTERAL ELECTROLYTES 20 ML, MVI, ADULT NO.4 WITH VIT K 10 ML, TRACE (CONC-1ML/DOSE IV SCH ×4 (09:02)
[2022-01-12] MEDS: PANTOPRAZOLE 40 MG/10 ML VIAL IVP SCH (09:02)
[2022-01-12] MEDS: CHLORHEXIDINE GLUCONATE 15 ML CUP MUCOUS MEM SCH ×2 (09:02→21:24)
[2022-01-12] MEDS: SODIUM CHLORIDE 0.9% 1,000 ML IV SCH (09:03)
[2022-01-12] MEDS: AMIODARONE 200 MG TAB PO SCH ×2 (09:03→21:24)
[2022-01-12] MEDS: ASPIRIN 81 MG PO SCH (09:04)
--- NOTE | 2022-01-12 10:07 | OP ---
OPERATIVE REPORT OPERATIVE REPORT: Placement of left brachial arterial line. PREOPERATIVE DIAGNOSIS: Acute hypoxic respiratory failure secondary to septic shock. POSTOPERATIVE DIAGNOSIS: Acute hypoxic respiratory failure secondary to septic shock. ANESTHESIA USED: None deployed. PROCEDURE DESCRIPTION: The patient was placed in supine position. The left brachial region was prepared in a sterile fashion and drapes were applied. The left brachial artery was palpated, easily cannulated, and a guidewire was placed. A Cook's catheter was inserted over the guidewire, and the guidewire was removed. Good blood flow and good waveform were noted. No complications. Line was secured using 3.0 silk sutures. MMODL / IJN: [id number] /
--- NOTE | 2022-01-12 10:52 | P.PN ---
Subjective Progress Note Date: 01/12/22 Principal diagnosis: Acute hypoxic respiratory failure secondary to Sepsis and septic shock secondary to Pseudomonas bacteremia, most likely secondary to abdominal sepsis This is a 72-year-old male patient with a known history of coronary artery disease with previous stent placement, diabetes mellitus, hypertension, hyperlipidemia, BPH, chronic and ongoing tobacco dependence. He also has a history of urostomy that was done at [facility] several years ago and previous bladder cancer. He had presented to the emergency room yesterday with complaints of abdominal painand distention. CAT scan of the abdomen revealed cyst addition for parastomal hernia which is obstructing the patient Werner conduit through the subcutaneous tissues. There is mild bilateral hydronephrosis. Parastomal hernia containing small bowel demonstrated pneumobilia suggesting strangulation small bowel with possible perforation. Subcutaneous gas which may represent superimposed infections secondary to the small bowel strangulation and possible perforation. White count 12.2. Hemoglobin 10.4. Sodium 138. Potassium 4.8. BUN 47. Creatinine 3.17. Glucose 252. Plasma lactic acid 2.2. Troponin 0.013. House virus by PCR not detected. He was taken to the operating room last evening and had undergone an exploratory laparotomy, repair of strangulated parastomal hernia, small bowel resection with ileostomy, repair of incisional hernia. Blood cultures preliminary revealing gram-negative bacilli. Lactic acid up to 4.9 today. The patient had issues with hypotension and tachycardia this morning. We're consulted for ICU management. He was transferred there per medicine. 1 L of fluid resuscitation was given. Current labs revealed WBC 2.6. Hemoglobin 11.2. Sodium 133. Potassium 5.5. Chloride 105. Bicarb 17. BUN 55. Creatinine 3.80. Glucose 305. currently on Zosyn. He is seen today in consultation. He is awake and alert. He is having some surgical site pain but denies any worsening shortness of breath. No cough or congestion. No fever. The patient is seen today 01/08/2022 in follow-up in the intensive care unit. He is currently sitting up in bed. More awake and alert today. His color is better. He did receive 4 L of fluid resuscitation yesterday. He is now req uiring norepinephrine currently at 0.26 mcg/kg/m. He has 0.9% normal saline running at 125 ML's per hour. Mean arterial pressure 85 currently. He is tachycardic in the 120s. Sinus. Maintaining O2 saturation the high 90s on 2 L/m per nasal cannula. Chest x-ray continues to show interstitial changes in the lung bases. No pneumothorax. Suspect basilar atelectasis versus pneumonia and possible underlying interstitial lung disease. The patient denied having had COVID-19 infection. Blood culture is positive for pseudomonas aeruginosa. He is currently on Zosyn. White count 2.6. Hemoglobin 9.8. Sodium 138. Potassium 5.7. Bicarb 16. BUN 55. Creatinine 3.65. Glucose 140. Urinalysis with large amount of blood and high WBCs. Cultures pending. Arterial blood gases on 28% FiO2 revealed a PaO2 of 73, pCO2 38 and a pH of 7.22. He remains on DuoNeb inhalations, heparin for DVT prophylaxis, Protonix for GI prophylaxis. He remains nothing by mouth. There is minimal output of the ileostomy. Midline dressing dry and intact. Urostomy with adequate output. Currently in a 3.2 L positive balance Reevaluated today on 01/09/2022, patient remains in the ICU, intubated and mechanically ventilated. Clinical status deteriorated last night, patient had to be intubated. He is now on assist control rate of 30 tidal volume 500 FiO2 50% and PEEP of 8. ABG showed a pO2 of 125 pCO2 46 pH of 7.37. Patient had to be placed on bicarb drip yesterday and he is now on bicarbonate 50 mL per hour. His FiO2 was decreased down to 40% after reviewing the ABG. Patient is requiring norepinephrine at 0.25 he is also requiring vasopressin at 0.04. Received multiple fluid boluses yesterday, and the patient clearly has a septic shock presentation. He is on vasopressin at 0.04. He is also on fentanyl at 2 mcg/kg/hour, propofol at 35 mcg/kg/m, patient is not requiring any paralysis. Chest x-ray is showing a picture of congestive heart failure, possibly some pneumonia/superimposed. His cultures have been positive for pseudomonas aeruginosa. Patient remains on Zosyn. Urine cultures are nondiagnostic, sputum cultures are pending. WBC count today is 3.8 hemoglobin is 8.8. Complete metabolic profile is relatively unremarkable except for worsening renal profile with a BUN up to 59 and creatinine 3.15, being followed by nephrology on the case. Reevaluated today on 01/10/2022, patient remains in the ICU, intubated and mechanically ventilated sedated, but not paralyzed. Patient is on assist control mode of mechanical ventilation rate of 20, volume 500 FiO2 40% and PEEP of 8. ABG showed a pO2 of 106 pCO2 45 pH of 7.45. Patient is still requiring hemodynamic support, he is on vasopressin at 0.03 units per minute, norepinephrine at 0.24 mcg/kg/m. Total of 22 mcg/m. He is on fentanyl at 2 mcg/kg/m. And on propofol at 35 mcg/kg/m. Chest x-ray continues to show bilateral interstitial edema and/or infiltrates. Patient received significant amount of fluids on his initial presentation when he was septic and hypotensive, later on he was placed on pressors in the form of vasopressin and norepinephrine. CVP today is 8, hence no need for more fluids and no need for aggressive diuresis. Patient remains on bicarb drip at 50 mL per hour, and I will go ahead and discontinue bicarbonate based on his electrolytes and based on his ABG. His bicarb is 31. Renal profile today is improving, it was as high as 3.8, creatinine now is 2.72. WBC count is 4.5 hemoglobin is 8.6. Patient remains on Zosyn for his Pseudomonas bacteremia and I believe the most likely source of his Pseudomonas is his GI tract patient remains on GI and DVT prophylaxis. Platelets are 98,000, not unexpected considering the patient is septic and has septic shock on presentation Reevaluated today on 01/11/2022, patient remains in the ICU, intubated and mechanically ventilated. He is on assist control rate of 2012 volume 500 FiO2 40% and PEEP of 8. Today I cut down the PEEP down to 6. ABG showed a pO2 of 135 pCO2 41 pH of 7.46. WBC count is 5.4 hemoglobin 8.5. Electrolytes are normal, renal profile is improving with a BUN 63 creatinine is down to 2.53. Creatinine was as high as 3.80 few days ago. Chest x-ray continues to show bilateral interstitial infiltrates/interstitial edema but nonetheless it is improving. Patient remains empirically on antibiotics for his Pseudomonas patricia teremia and sepsis as well as septic shock. His platelets are noted to go down further today, hence I'm holding the heparin, patient will have Venodyne boots, and we will order a heparin-induced thrombocytopenia profile. Noted today that the patient was changed to Merrem instead of Zosyn. Mostly because the sensitivity on the pseudomonas seems to be intermediate to Zosyn. However it is sensitive to Merrem. Patient is still requiring norepinephrine he is on 0.21 mcg/kg/minute, and he is off vasopressin. I have a feeling that the patient will likely even though much less on norepinephrine if we cut down his sedation especially his fentanyl. And I plan to do so. We'll try to manage the patient's sedation only with propofol if possible. Reevaluated today on 01/12/2022, patient remains in the ICU, intubated and mechanically ventilated. Patient is on assist control rate of 20, volume 500 FiO2 40% and PEEP of 6. ABG showed a pO2 of 97 pCO2 42 pH of 7.45. Chest x-ray continues to show bilateral infiltrates, and possibly some component of interstitial edema. His WBC count is 8.7 hemoglobin is 8.1 and hematocrit is 25.7. Patient remains on propofol at 50 mcg/kg/m, remains on norepinephrine at 0.25, IV fluids at 75 mL per hour. Electrolytes showed low potassium of 3.4, BUN is 66 creatinine is 2.18, steadily improving. Patient is receiving Nepro and he is still on TPN. Platelets are down to 83, patient remains off heparin even subcu heparin. Workup for heparin-induced thrombocytopenia is pending. Patient remains on Merrem for pseudomonas aeruginosa bacteremia sepsis and septic shock. Objective - Vital Signs Vital signs: Vital Signs Temp 99.8 F H 01/12/22 08:00 Pulse 86 01/12/22 09:30 Resp 23 01/12/22 09:30 BP 105/58 01/12/22 09:30 Pulse Ox 98 01/12/22 09:30 Intake & Output 01/11/22 01/12/22 01/12/22 18:59 06:59 18:59 Intake Total 2136.172 1480.464 100 Output Total 980 1050 Balance 1156.172 430.464 100 Weight 95.8 kg Intake: IV 1550 840 .9 NS 770 840 Fluconazole in NaCl,Iso- 50 Osm 100 mg In Saline 1 50ml.bag @ 50 mls/hr IVPB DAILY@1600 [facility] Rx#: [id number] Meropenem 1 gm In Sodium 100 Chloride 0.9% 100 ml @ 33 .3 mls/hr IVPB Q8HR [facility] Rx#:[id number] Parenteral Electrolytes 330 20 ml Mvi, Adult No.4 with Vit K 10 ml Trace ( Conc-1Ml/Dose) 1 ml In Amino Acid 4.25%-D10w 1, 000 ml @ 30 mls/hr IV . Q24H [facility] Rx#:[id number] Piperacillin-Tazobactam 3 100 .375 gm In Sodium Chloride 0.9% 100 ml @ 25 mls/hr IVPB Q12HR [facility] Rx #:[id number] Potassium Chloride 20 meq 200 In Water For Injection 1 100ml.bag @ 50 mls/hr IVPB Q2H [facility] Rx#: [id number] Intake, IV Titration 526.172 310.464 100 Amount Norepinephrine 32 mg In 169.426 124.075 Sodium Chloride 0.9% 218 ml @ 0.44 MCG/KG/MIN 18. 954 mls/hr IV .[id number] [facility] Rx#:[id number] fentaNYL (PF) 2,500 mcg 201.72 In Sodium Chloride 0.9% 200 ml @ 2.5 MCG/KG/HR 22 .975 mls/hr IV .[id number] [facility] Rx#:[id number] propofoL 1,000 mg In 155.026 186.389 100 Empty Bag 1 bag @ Titrate IV .Q0M [facility] Rx#: [id number] Tube Feeding 60 240 Other 90 Output: Urine 980 1050 ABP, PAP, CO, CI - Last Documented Arterial Blood Pressure 118/48 - Exam GENERAL EXAM: Revealed a 72-year-old white male intubated, mechanically ventilated, sedated, on propofol and fentanyl. Still requiring norepinephrine , being titrated, new arterial line was placed today since the old one was not functional HEAD: Normocephalic. Atraumatic. EYES: Normal reaction of pupils, equal size. NOSE: Clear with pink turbinates. THROAT: No erythema or exudates. Endotracheal tube and orogastric tube are intact. NECK: No masses, no JVD. CHEST: Symmetrical chest expansion, no deformity. LUNGS: Fine crackles at the bases. CVS: Irregular irregular rhythm. S1 and S2 normal with no audible murmur, regular rhythm. ABDOMEN: Urostomy on the left, ileostomy on the right, midline dressing dry and intact. SKIN: No rashes CENTRAL NERVOUS SYSTEM: Cannot assess, patient is fully sedated. On propofol and fentanyl. However the patient was appropriate according to the nurses when sedation was placed on hold yesterday EXTREMITIES: Cannot assess - Labs CBC & Chem 7: 01/12/22 05:25 01/12/22 05:25 Labs: Abnormal Lab Results - Last 24 Hours (Table) 01/11/22 01/11/22 01/11/22 Range/Units 11:36 11:39 17:40 RBC (4.30-5.90) m/uL Hgb (13.0-17.5) gm/dL Hct (39.0-53.0) % RDW (11.5-15.5) % Plt Count (150-450) k/uL Neutrophils # (1.3-7.7) k/uL Lymphocytes # (1.0-4.8) k/uL ABG HCO3 (21-25) mmol/L ABG Total CO2 (19-24) mmol/L ABG O2 Saturation (94-97) % Potassium (3.5-5.1) mmol/L BUN (9-20) mg/dL Creatinine (0.66-1.25) mg/dL Glucose (74-99) mg/dL POC Glucose (mg/dL) 208 H 200 H (75-99) mg/dL Calcium (8.4-10.2) mg/dL Total Protein (6.3-8.2) g/dL Albumin 1.9 L (3.5-5.0) g/dL 01/11/22 01/12/22 01/12/22 Range/Units 23:57 05:25 05:25 RBC 2.59 L (4.30-5.90) m/uL Hgb 8.1 L (13.0-17.5) gm/dL Hct 25.7 L (39.0-53.0) % RDW 15.9 H (11.5-15.5) % Plt Count 83 L (150-450) k/uL Neutrophils # 7.9 H (1.3-7.7) k/uL Lymphocytes # 0.3 L (1.0-4.8) k/uL ABG HCO3 (21-25) mmol/L ABG Total CO2 (19-24) mmol/L ABG O2 Saturation (94-97) % Potassium 3.4 L (3.5-5.1) mmol/L BUN 66 H (9-20) mg/dL Creatinine 2.18 H (0.66-1.25) mg/dL Glucose 248 H (74-99) mg/dL POC Glucose (mg/dL) 221 H (75-99) mg/dL Calcium 7.7 L (8.4-10.2) mg/dL Total Protein 4.2 L (6.3-8.2) g/dL Albumin 1.8 L (3.5-5.0) g/dL 01/12/22 01/12/22 Range/Units 05:51 06:00 RBC (4.30-5.90) m/uL Hgb (13.0-17.5) gm/dL Hct (39.0-53.0) % RDW (11.5-15.5) % Plt Count (150-450) k/uL Neutrophils # (1.3-7.7) k/uL Lymphocytes # (1.0-4.8) k/uL ABG HCO3 29 H (21-25) mmol/L ABG Total CO2 30 H (19-24) mmol/L ABG O2 Saturation 97.4 H (94-97) % Potassium (3.5-5.1) mmol/L BUN (9-20) mg/dL Creatinine (0.66-1.25) mg/dL Glucose (74-99) mg/dL POC Glucose (mg/dL) 265 H (75-99) mg/dL Calcium (8.4-10.2) mg/dL Total Protein (6.3-8.2) g/dL Albumin (3.5-5.0) g/dL Microbiology - Last 24 Hours (Table) 01/10/22 11:55 Blood Culture - Preliminary Blood No Growth after 24 hours 01/09/22 00:00 Gram Stain - Final Sputum Sputum Culture - Final Vesta albicans Assessment and Plan Assessment: Impression: Acute hypoxic respiratory failure secondary to septic shock, secondary to Pseudomonas aeruginosa bacteremia, most likely is GI source. patient presented initially with strangulation of the small bowel with possible perforation and had small bowel and pneumobilia. Patient is status post exploratory laparotomy repair of strangulated parastomal hernia small bowel resection and ileostomy with repair of incisional hernia on 01/06/2022, postoperative day #6. Patient was intubated on 01/08/20, and remains intubated , sedated, and mechanically ventilated. Pseudomonas aeruginosa bacteremia, presently on Merrem. Hypotension secondary to septic shock, improving. Nonetheless the patient is still requiring norepinephrine but he is off vasopressin. Lactic acidosis secondary to sepsis and septic shock, resolved. Acute kidney injury secondary to sepsis and septic shock, suspect acute tubular necrosis, steadily improving Hyperkalemia secondary to acute kidney injury and septic shock/hypotension, resolved. History of bladder cancer with previous urostomy Type 2 diabetes. Dyslipidemia. Coronary artery disease and previous stent placement. Tobacco dependence syndrome. New onset atrial fibrillation being addressed by cardiology. Recommendation: Continue ventilatory support. No changes made in his ventilator settings, remains on assist control rate of 20, volume 500 FiO2 40% and PEEP of 6 Daily assessment of mental status or at least a sedation holiday on a daily basis. Continue hemodynamic support.norepinephrine is being titrated down. Continue sedation, patient is not ready for weaning. Continue Merrem, patient is off Zosyn. Continue TPN./Nutritional support, patient was restarted on enteral feeding slo wly. Now he has both on board. Continue to hold heparin, order heparin-induced thrombocytopenia profile. Continue GI and DVT prophylaxis. Prognosis remains relatively poor and guarded. Patient is critically ill. Critical care time is over 30 minutes. . 0 Time with Patient: Greater than 30
--- NOTE | 2022-01-12 10:54 | P.PN ---
Subjective Principal diagnosis: Patient is a 72-year-old male with history of bladder cancer status post cystectomy and ileal loop urostomy, he was admitted to the hospital with abdominal pain and found to have a parastomal hernia with incarceration and bowel necrosis. Patient was taken to surgery on 01/06/2022 and had explorative laparotomy with repair of strangulated parastomal hernia and small bowel resection with ileostomy and repair of incisional hernia. Patient is seen for follow-up for acute kidney injury, mostly ATN secondary to hypotension and sepsis as well as an obstructive component. Renal function has been improving. Patient has had good output from his urostomy. Pressors are being decreased. Patient remains on IV fluids. TPN started but tolerating tube feeds so hopefully it will be discontinued Urine output at about 75 - 200mL an hour. Levo fed is at 0.27mcg/kg/m. Vasopressin is off. Objective - Vital Signs Vital signs: Vital Signs Temp 99.8 F H 01/12/22 08:00 Pulse 86 01/12/22 09:30 Resp 23 01/12/22 09:30 BP 105/58 01/12/22 09:30 Pulse Ox 98 01/12/22 09:30 Intake & Output 01/11/22 01/12/22 01/12/22 18:59 06:59 18:59 Intake Total 2136.172 1480.464 100 Output Total 980 1050 Balance 1156.172 430.464 100 Weight 95.8 kg Intake: IV 1550 840 .9 NS 770 840 Fluconazole in NaCl,Iso- 50 Osm 100 mg In Saline 1 50ml.bag @ 50 mls/hr IVPB DAILY@1600 [facility] Rx#: [id number] Meropenem 1 gm In Sodium 100 Chloride 0.9% 100 ml @ 33 .3 mls/hr IVPB Q8HR [facility] Rx#:[id number] Parenteral Electrolytes 330 20 ml Mvi, Adult No.4 with Vit K 10 ml Trace ( Conc-1Ml/Dose) 1 ml In Amino Acid 4.25%-D10w 1, 000 ml @ 30 mls/hr IV . Q24H [facility] Rx#:[id number] Piperacillin-Tazobactam 3 100 .375 gm In Sodium Chloride 0.9% 100 ml @ 25 mls/hr IVPB Q12HR [facility] Rx #:[id number] Potassium Chloride 20 meq 200 In Water For Injection 1 100ml.bag @ 50 mls/hr IVPB Q2H [facility] Rx#: [id number] Intake, IV Titration 526.172 310.464 100 Amount Norepinephrine 32 mg In 169.426 124.075 Sodium Chloride 0.9% 218 ml @ 0.44 MCG/KG/MIN 18. 954 mls/hr IV .[id number] [facility] Rx#:[id number] fentaNYL (PF) 2,500 mcg 201.72 In Sodium Chloride 0.9% 200 ml @ 2.5 MCG/KG/HR 22 .975 mls/hr IV .[id number] [facility] Rx#:[id number] propofoL 1,000 mg In 155.026 186.389 100 Empty Bag 1 bag @ Titrate IV .Q0M [facility] Rx#: [id number] Tube Feeding 60 240 Other 90 Output: Urine 980 1050 ABP, PAP, CO, CI - Last Documented Arterial Blood Pressure 118/48 - Exam Patient is sedated. He is on the vent. Examination of the heart S1 and S2 Examination lungs bilateral breath sounds are heard Abdomen is soft. Ileostomy and urostomy noted. Stoma off the urostomy is dark in color. Some sloughing is noted. Examination of the lower extremities shows no evidence of edema [employer] exam cannot be performed as patient is sedated - Labs CBC & Chem 7: 01/12/22 05:25 01/12/22 05:25 Labs: Abnormal Lab Results - Last 24 Hours (Table) 01/11/22 01/11/22 01/11/22 Range/Units 11:36 11:39 17:40 RBC (4.30-5.90) m/uL Hgb (13.0-17.5) gm/dL Hct (39.0-53.0) % RDW (11.5-15.5) % Plt Count (150-450) k/uL Neutrophils # (1.3-7.7) k/uL Lymphocytes # (1.0-4.8) k/uL ABG HCO3 (21-25) mmol/L ABG Total CO2 (19-24) mmol/L ABG O2 Saturation (94-97) % Potassium (3.5-5.1) mmol/L BUN (9-20) mg/dL Creatinine (0.66-1.25) mg/dL Glucose (74-99) mg/dL POC Glucose (mg/dL) 208 H 200 H (75-99) mg/dL Calcium (8.4-10.2) mg/dL Total Protein (6.3-8.2) g/dL Albumin 1.9 L (3.5-5.0) g/dL 01/11/22 01/12/22 01/12/22 Range/Units 23:57 05:25 05:25 RBC 2.59 L (4.30-5.90) m/uL Hgb 8.1 L (13.0-17.5) gm/dL Hct 25.7 L (39.0-53.0) % RDW 15.9 H (11.5-15.5) % Plt Count 83 L (150-450) k/uL Neutrophils # 7.9 H (1.3-7.7) k/uL Lymphocytes # 0.3 L (1.0-4.8) k/uL ABG HCO3 (21-25) mmol/L ABG Total CO2 (19-24) mmol/L ABG O2 Saturation (94-97) % Potassium 3.4 L (3.5-5.1) mmol/L BUN 66 H (9-20) mg/dL Creatinine 2.18 H (0.66-1.25) mg/dL Glucose 248 H (74-99) mg/dL POC Glucose (mg/dL) 221 H (75-99) mg/dL Calcium 7.7 L (8.4-10.2) mg/dL Total Protein 4.2 L (6.3-8.2) g/dL Albumin 1.8 L (3.5-5.0) g/dL 01/12/22 01/12/22 Range/Units 05:51 06:00 RBC (4.30-5.90) m/uL Hgb (13.0-17.5) gm/dL Hct (39.0-53.0) % RDW (11.5-15.5) % Plt Count (150-450) k/uL Neutrophils # (1.3-7.7) k/uL Lymphocytes # (1.0-4.8) k/uL ABG HCO3 29 H (21-25) mmol/L ABG Total CO2 30 H (19-24) mmol/L ABG O2 Saturation 97.4 H (94-97) % Potassium (3.5-5.1) mmol/L BUN (9-20) mg/dL Creatinine (0.66-1.25) mg/dL Glucose (74-99) mg/dL POC Glucose (mg/dL) 265 H (75-99) mg/dL Calcium (8.4-10.2) mg/dL Total Protein (6.3-8.2) g/dL Albumin (3.5-5.0) g/dL Microbiology - Last 24 Hours (Table) 01/10/22 11:55 Blood Culture - Preliminary Blood No Growth after 24 hours 01/09/22 00:00 Gram Stain - Final Sputum Sputum Culture - Final Vesta albicans Assessment and Plan Assessment: 1. Acute kidney injury, ATN nonoliguric secondary to hypotension and sepsis as well as an obstructive, component. CT of the abdomen on initial admission showed the parastomal hernia with obstruction and mild bilateral hydronephrosis and hydroureter. Currently urine output is good urine ostomy seems to be working fairly well. Continue with IV fluids 2. Incarcerated parastomal hernia and necrotic bowel status post emergency resection of the bowel with ileostomy and repair of strangulated parastomal hernia. 3. Hypotension from sepsis maintained on antibiotics and pressors. 4. History of bladder cancer status post cystectomy and ileal loop urostomy 5. Hyperkalemia associated with acute kidney injury and metabolic acidosis 6. Metabolic acidosis associated with acute kidney injury and hypotension, status post IV bicarb 7. Pseudomonas bacteremia, source is likely abdominal. Urine culture is negativtive Plan: continue with IV fluids, if patient is getting TPN we can DC the normal saline. Repeat labs in a.m. Replace potassium Continue with antibiotics
--- NOTE | 2022-01-12 11:25 | P.PN ---
Progress Note - Text Progress Note Date: 01/12/22 Patient remains on the ventilator. Vital signs are stable. Abdomen soft incision is clean dry intact. Urostomy appears viable. The superficial mucosa soft. There is healthy pink tissue seen beneath. Ileostomy is had some minimal function. Status post repair of strangulated parastomal hernia with small bowel resection. Patient will continue to receive supportive care.
[2022-01-12 11:32] LABS: Glucose,Whole Blood 283 mg/dL (75-99)
--- NOTE | 2022-01-12 12:18 | P.PN ---
Subjective HISTORY OF PRESENTING ILLNESS Patient is pleasant 72-year-old male with history of CAD with prior PCI, diabetes mellitus type 2, hypertension, hyperlipidemia, BPH, tobacco abuse, bladder cancer with urostomy. Patient had presented to the hospital with abdominal pain and distention and computed tomography scan showed hernia with small bowel perforation and therefore underwent exploratory laparotomy. Since then patient was found to be septic with Pseudomonas bacteremia as well as acute kidney injury. Patient has been having worsened respiratory distress yesterday and eventually intubated. He has had sinus tachycardia throughout his hospit alization with heart rates in the 120s however yesterday went into A. fib with RVR with heart rates in the 130s to 150s. Patient was placed on amiodarone drip and currently this morning is in sinus rhythm with frequent PVCs and PACs. 01/10 Patient seen and examined. Patient remains intubated and sedated. No further episodes of A. fib however frequent PACs and PVCs. No anticoagulation given rec ent surgery. Remains on pressors for septic shock. 01/11 seen and examined. Patient remains on ventilator with FiO2 of 35% and a PEEP of 6. Remains on a low-dose of norepinephrine at 0.23. Echo was performed 01/09/2022 however report not transferred over however on personal review EF appears 35-40% with global hypokinesis and no significant valvular disease, mild aortic stenosis. Patient to go in A. fib with mild RVR heart rates in the 110 range overnight. Converted back to sinus rhythm this morning. 01/12 Patient seen and examined. Discussed with with no reported history of cardiomyopathy in the past. No history of atrial fibrillation either. Remains on vent with similar pressors, norepinephrine at 0.23. He is receiving IV fluids at 70 mL creatinine mildly improved to 2.1 today. He has remained in sinus rhythm with frequent PVCs, mild sinus tachycardia. REVIEW OF SYSTEMS Unable to exam secondary to intubated and sedated PHYSICAL EXAMINATION Vital signs reviewed. CONSTITUTIONAL: No apparent distress, ill appearing, sedated on vent HEENT: Head is normocephalic. Pupils are equal, round. Sclerae anicteric. Mucous membranes of the mouth are moist. No JVD. No carotid bruit. CHEST EXAMINATION: Lungs are clear to auscultation. No chest wall tenderness is noted on palpation or with deep breathing. HEART EXAMINATION: Regular rate and rhythm. S1, S2 heard. No murmurs, gallops or rub. ABDOMEN: Soft, nontender. Positive bowel sounds. EXTREMITIES: 2+ peripheral pulses, no lower extremity edema and no calf tenderness. NEUROLOGIC EXAMINATION: Patient is sedated and intubated ASSESSMENT 1. New-onset atrial fibrillation, currently sinus rhythm s/p amio for 24 hrs 2. Status post small bowel perforation and exploratory laparotomy with repair of strangulated hernia 3. Pseudomonas bacteremia 4. Septic shock on vasopressors 5. Acute kidney injury 6. Hyperkalemia 7. Coronary artery disease with prior history of PCI 8. Diabetes mellitus type 2 9. Tobacco abuse 10. Anemia 11. New cardiomyopathy EF 35-40% may be related to sepsis versus other, prior EF 2014 EF 50-55% Plan: Continue supportive care. Ideally restart antiplatelets as well as anticoagu lation pending approval by surgery. Discussed long-term recommendations for anticoagulation with . Continue amiodarone. Kidney injury appears improving with IV fluids. Per new cardiomyopathy and would recommend further workup when stabilizes. Ideally start heart failure regimen if blood pressure can tolerate however currently hypotensive. Decrease EF may be related to A. fib with RVR, sepsis versus other. Objective - Vital Signs Vital signs: Vital Signs Temp 99.8 F H 01/12/22 08:00 Pulse 86 01/12/22 09:30 Resp 23 01/12/22 09:30 BP 105/58 01/12/22 09:30 Pulse Ox 98 01/12/22 09:30 Intake & Output 01/11/22 01/12/22 01/12/22 18:59 06:59 18:59 Intake Total 2136.172 1480.464 100 Output Total 980 1050 Balance 1156.172 430.464 100 Weight 95.8 kg Intake: IV 1550 840 .9 NS 770 840 Fluconazole in NaCl,Iso- 50 Osm 100 mg In Saline 1 50ml.bag @ 50 mls/hr IVPB DAILY@1600 [facility] Rx#: [id number] Meropenem 1 gm In Sodium 100 Chloride 0.9% 100 ml @ 33 .3 mls/hr IVPB Q8HR [facility] Rx#:[id number] Parenteral Electrolytes 330 20 ml Mvi, Adult No.4 with Vit K 10 ml Trace ( Conc-1Ml/Dose) 1 ml In Amino Acid 4.25%-D10w 1, 000 ml @ 30 mls/hr IV . Q24H [facility] Rx#:[id number] Piperacillin-Tazobactam 3 100 .375 gm In Sodium Chloride 0.9% 100 ml @ 25 mls/hr IVPB Q12HR [facility] Rx #:[id number] Potassium Chloride 20 meq 200 In Water For Injection 1 100ml.bag @ 50 mls/hr IVPB Q2H [facility] Rx#: [id number] Intake, IV Titration 526.172 310.464 100 Amount Norepinephrine 32 mg In 169.426 124.075 Sodium Chloride 0.9% 218 ml @ 0.44 MCG/KG/MIN 18. 954 mls/hr IV .[id number] [facility] Rx#:[id number] fentaNYL (PF) 2,500 mcg 201.72 In Sodium Chloride 0.9% 200 ml @ 2.5 MCG/KG/HR 22 .975 mls/hr IV .[id number] [facility] Rx#:[id number] propofoL 1,000 mg In 155.026 186.389 100 Empty Bag 1 bag @ Titrate IV .Q0M [facility] Rx#: [id number] Tube Feeding 60 240 Other 90 Output: Urine 980 1050 ABP, PAP, CO, CI - Last Documented Arterial Blood Pressure 118/48 - Labs CBC & Chem 7: 01/12/22 05:25 01/12/22 05:25 Labs: Abnormal Lab Results - Last 24 Hours (Table) 01/11/22 01/11/22 01/11/22 Range/Units 11:36 17:40 23:57 RBC (4.30-5.90) m/uL Hgb (13.0-17.5) gm/dL Hct (39.0-53.0) % RDW (11.5-15.5) % Plt Count (150-450) k/uL Neutrophils # (1.3-7.7) k/uL Lymphocytes # (1.0-4.8) k/uL ABG HCO3 (21-25) mmol/L ABG Total CO2 (19-24) mmol/L ABG O2 Saturation (94-97) % Potassium (3.5-5.1) mmol/L BUN (9-20) mg/dL Creatinine (0.66-1.25) mg/dL Glucose (74-99) mg/dL POC Glucose (mg/dL) 200 H 221 H (75-99) mg/dL Calcium (8.4-10.2) mg/dL Total Protein (6.3-8.2) g/dL Albumin 1.9 L (3.5-5.0) g/dL 01/12/22 01/12/22 01/12/22 Range/Units 05:25 05:25 05:51 RBC 2.59 L (4.30-5.90) m/uL Hgb 8.1 L (13.0-17.5) gm/dL Hct 25.7 L (39.0-53.0) % RDW 15.9 H (11.5-15.5) % Plt Count 83 L (150-450) k/uL Neutrophils # 7.9 H (1.3-7.7) k/uL Lymphocytes # 0.3 L (1.0-4.8) k/uL ABG HCO3 (21-25) mmol/L ABG Total CO2 (19-24) mmol/L ABG O2 Saturation (94-97) % Potassium 3.4 L (3.5-5.1) mmol/L BUN 66 H (9-20) mg/dL Creatinine 2.18 H (0.66-1.25) mg/dL Glucose 248 H (74-99) mg/dL POC Glucose (mg/dL) 265 H (75-99) mg/dL Calcium 7.7 L (8.4-10.2) mg/dL Total Protein 4.2 L (6.3-8.2) g/dL Albumin 1.8 L (3.5-5.0) g/dL 01/12/22 01/12/22 Range/Units 06:00 11:29 RBC (4.30-5.90) m/uL Hgb (13.0-17.5) gm/dL Hct (39.0-53.0) % RDW (11.5-15.5) % Plt Count (150-450) k/uL Neutrophils # (1.3-7.7) k/uL Lymphocytes # (1.0-4.8) k/uL ABG HCO3 29 H (21-25) mmol/L ABG Total CO2 30 H (19-24) mmol/L ABG O2 Saturation 97.4 H (94-97) % Potassium (3.5-5.1) mmol/L BUN (9-20) mg/dL Creatinine (0.66-1.25) mg/dL Glucose (74-99) mg/dL POC Glucose (mg/dL) 283 H (75-99) mg/dL Calcium (8.4-10.2) mg/dL Total Protein (6.3-8.2) g/dL Albumin (3.5-5.0) g/dL Microbiology - Last 24 Hours (Table) 01/10/22 11:55 Blood Culture - Preliminary Blood No Growth after 24 hours 01/09/22 00:00 Gram Stain - Final Sputum Sputum Culture - Final Vesta albicans
[2022-01-12 12:33] LABS: Glucose,Whole Blood 271 mg/dL (75-99)
[2022-01-12] MEDS: FLUCONAZOLE IN NACL,ISO-OSM 100 MG in SALINE 1 50ML.BAG IVPB SCH (16:16)
[2022-01-12 19:13] LABS: Glucose,Whole Blood 271 mg/dL (75-99)
--- NOTE | 2022-01-12 20:04 | PN ---
PROGRESS NOTE DATE OF SERVICE: 01/12/2022 This 72-year-old gentleman who was admitted after exploratory laparotomy has Pseudomonas sepsis at this time. The patient also had acute respiratory failure. The patient was mechanically ventilated and intubated. Patient also had thrombocytopenia. HIT workup is underway. The patient is currently on bronchodilators as well as broad- spectrum antibiotics and meropenem. The cultures are also showing Vesta albicans. Past medical history reviewed. Review of systems could not be taken; the patient is mechanically ventilated. CURRENT MEDICATIONS: Current medications are reviewed and include [place], DuoNeb, Cordarone. Doses and other medications are reviewed. PHYSICAL EXAMINATION: Pulse is 86, blood pressure 103/56, respiration 28, temperature normal. HEENT: Conjunctivae normal. CARDIOVASCULAR: S1, S2 muffled. RESPIRATION: Breath sounds diminished at the bases. A few scattered rhonchi. ABDOMEN: Soft. Status post surgery. LEGS: No edema. No swelling. NERVOUS SYSTEM: Sedated. LABS: WBC 8.6, hemoglobin 8.1, platelets 83. ASSESSMENT: 1. Acute strangulation of parastomal hernia with small-bowel resection and ileostomy with exploratory laparotomy. 2. Acute hypoxic respiratory failure secondary to sepsis and septic shock. 3. Pseudomonas aeruginosa sepsis. 4. Thrombocytopenia. Rule out HIT. 5. Atrial fibrillation with fast ventricular rate. 6. Lactic acidosis. 7. Diabetes mellitus, type 2. 8. Hyperlipidemia. 9. History of coronary artery disease, stents. RECOMMENDATIONS AND DISCUSSION: I recommend to continue current medications, continue with the monitoring, symptomatic treatment. Continue broad-spectrum IV antibiotics. HIT workup. Continue with the mechanical ventilation. Repeat labs. Chest x-ray reviewed personally. Prognosis is guarded because of multiple complex medical issues. Further recommendations to follow. MMODL / IJN: [id number] /
--- NOTE | 2022-01-12 20:37 | P.PN ---
Subjective Progress Note Date: 01/12/22 Principal diagnosis: Pseudomonas bacteremia Patient is 72-year-old male, presented to hospital with abdominal pain has been diagnosed with strangulated parastomal hernia, in this patient was status post exploratory laparotomy, small bowel resection with ileostomy and re pair of incisional hernia patient was noticed to have a positive blood culture has been finalized with pseudomonas aeruginosa, patient was transferred to the ICU because of hypotension. On today's evaluation that is 01/12/2022, the patient did have low-grade fever of 99.8F this morning, patient intubated on the vent and FiO2 is currently stable at 40%, the patient is hemodynamically stable requiring low-dose pressor support no significant purulent secretions through the ET or diarrhea reported by the nursing staff Objective - Vital Signs Vital signs: Vital Signs Temp 99.8 F H 01/12/22 08:00 Pulse 82 01/12/22 15:57 Resp 23 01/12/22 09:30 BP 105/58 01/12/22 09:30 Pulse Ox 98 01/12/22 09:30 Intake & Output 01/11/22 01/12/22 01/12/22 18:59 06:59 18:59 Intake Total 2136.172 1480.464 100 Output Total 980 1050 Balance 1156.172 430.464 100 Weight 95.8 kg Intake: IV 1550 840 .9 NS 770 840 Fluconazole in NaCl,Iso- 50 Osm 100 mg In Saline 1 50ml.bag @ 50 mls/hr IVPB DAILY@1600 [facility] Rx#: [id number] Meropenem 1 gm In Sodium 100 Chloride 0.9% 100 ml @ 33 .3 mls/hr IVPB Q8HR [facility] Rx#:[id number] Parenteral Electrolytes 330 20 ml Mvi, Adult No.4 with Vit K 10 ml Trace ( Conc-1Ml/Dose) 1 ml In Amino Acid 4.25%-D10w 1, 000 ml @ 30 mls/hr IV . Q24H [facility] Rx#:[id number] Piperacillin-Tazobactam 3 100 .375 gm In Sodium Chloride 0.9% 100 ml @ 25 mls/hr IVPB Q12HR [facility] Rx #:[id number] Potassium Chloride 20 meq 200 In Water For Injection 1 100ml.bag @ 50 mls/hr IVPB Q2H [facility] Rx#: [id number] Intake, IV Titration 526.172 310.464 100 Amount Norepinephrine 32 mg In 169.426 124.075 Sodium Chloride 0.9% 218 ml @ 0.44 MCG/KG/MIN 18. 954 mls/hr IV .[id number] [facility] Rx#:[id number] fentaNYL (PF) 2,500 mcg 201.72 In Sodium Chloride 0.9% 200 ml @ 2.5 MCG/KG/HR 22 .975 mls/hr IV .[id number] [facility] Rx#:[id number] propofoL 1,000 mg In 155.026 186.389 100 Empty Bag 1 bag @ Titrate IV .Q0M [facility] Rx#: [id number] Tube Feeding 60 240 Other 90 Output: Urine 980 1050 ABP, PAP, CO, CI - Last Documented Arterial Blood Pressure 118/48 - Exam GENERAL DESCRIPTION: An elderly male intubated on the vent RESPIRATORY SYSTEM: Unlabored breathing , decreased breath sounds at bases HEART: S1 S2 regular rate and rhythm , ABDOMEN: Soft , mild distention, no tenderness EXTREMITIES: No edema feeT - Labs CBC & Chem 7: 01/12/22 05:25 01/12/22 05:25 Labs: Abnormal Lab Results - Last 24 Hours (Table) 01/11/22 01/11/22 01/12/22 Range/Units 17:40 23:57 05:25 RBC (4.30-5.90) m/uL Hgb (13.0-17.5) gm/dL Hct (39.0-53.0) % RDW (11.5-15.5) % Plt Count (150-450) k/uL Neutrophils # (1.3-7.7) k/uL Lymphocytes # (1.0-4.8) k/uL ABG HCO3 (21-25) mmol/L ABG Total CO2 (19-24) mmol/L ABG O2 Saturation (94-97) % Potassium 3.4 L (3.5-5.1) mmol/L BUN 66 H (9-20) mg/dL Creatinine 2.18 H (0.66-1.25) mg/dL Glucose 248 H (74-99) mg/dL POC Glucose (mg/dL) 200 H 221 H (75-99) mg/dL Calcium 7.7 L (8.4-10.2) mg/dL Total Protein 4.2 L (6.3-8.2) g/dL Albumin 1.8 L (3.5-5.0) g/dL 01/12/22 01/12/22 01/12/22 Range/Units 05:25 05:51 06:00 RBC 2.59 L (4.30-5.90) m/uL Hgb 8.1 L (13.0-17.5) gm/dL Hct 25.7 L (39.0-53.0) % RDW 15.9 H (11.5-15.5) % Plt Count 83 L (150-450) k/uL Neutrophils # 7.9 H (1.3-7.7) k/uL Lymphocytes # 0.3 L (1.0-4.8) k/uL ABG HCO3 29 H (21-25) mmol/L ABG Total CO2 30 H (19-24) mmol/L ABG O2 Saturation 97.4 H (94-97) % Potassium (3.5-5.1) mmol/L BUN (9-20) mg/dL Creatinine (0.66-1.25) mg/dL Glucose (74-99) mg/dL POC Glucose (mg/dL) 265 H (75-99) mg/dL Calcium (8.4-10.2) mg/dL Total Protein (6.3-8.2) g/dL Albumin (3.5-5.0) g/dL 01/12/22 01/12/22 Range/Units 11:29 12:31 RBC (4.30-5.90) m/uL Hgb (13.0-17.5) gm/dL Hct (39.0-53.0) % RDW (11.5-15.5) % Plt Count (150-450) k/uL Neutrophils # (1.3-7.7) k/uL Lymphocytes # (1.0-4.8) k/uL ABG HCO3 (21-25) mmol/L ABG Total CO2 (19-24) mmol/L ABG O2 Saturation (94-97) % Potassium (3.5-5.1) mmol/L BUN (9-20) mg/dL Creatinine (0.66-1.25) mg/dL Glucose (74-99) mg/dL POC Glucose (mg/dL) 283 H 271 H (75-99) mg/dL Calcium (8.4-10.2) mg/dL Total Protein (6.3-8.2) g/dL Albumin (3.5-5.0) g/dL Microbiology - Last 24 Hours (Table) 01/10/22 11:55 Blood Culture - Preliminary Blood No Growth after 24 hours Assessment and Plan (1) Bacteremia Current Visit: Yes Status: Acute Code(s): R78.81 - BACTEREMIA SNOMED Code(s): 9092889 Plan: 1-Patient with pseudomonas bacteremia source is likely abdominal and this patient presented to the hospital with incarcerated hernia status post small bowel resection and ileostomy and repair of the hernia patient did have worsening of his respiratory status requiring intubation, patient pseudomonas is intermediate sensitivity to Zosyn and cefepime, patient to continue with meropenem and will monitor his clinical course closely 2-positive sputum culture with Vesta likely colonizer, continue supportive care Time with Patient: Less than 30
[2022-01-13] MEDS: MEROPENEM 1 GM in SODIUM CHLORIDE 0.9% 100 ML IVPB SCH ×3 (01:12→16:32)
[2022-01-13] MEDS: SODIUM CHLORIDE 0.9% 50 ML with VASOPRESSIN 20 UNIT IVPB SCH ×2 (01:53)
[2022-01-13 02:02] LABS: Glucose,Whole Blood 272 mg/dL (75-99)
[2022-01-13] MEDS: INSULIN ASPART (NovoLOG) 100 UNIT/ML VIAL SQ SCH ×4 (02:03→19:00)
[2022-01-13] MEDS: SODIUM CHLORIDE 0.9% 1,000 ML IV SCH (02:04)
[2022-01-13] MEDS: fentaNYL (PF) 2,500 MCG in SODIUM CHLORIDE 0.9% 200 ML IV SCH (02:05)
[2022-01-13] MEDS: 1: PARENTERAL ELECTROLYTES 20 ML, MVI, ADULT NO.4 WITH VIT K 10 ML, TRACE (CONC-1ML/DOSE IV SCH ×10 (02:51→20:40)
[2022-01-13 06:10] LABS: ABG Base Excess 4.6 mmol/L; ABG HCO3 29 mmol/L (21-25); ABG Oxygen Saturation 97.6 % (94-97); ABG PCO2 42 mmHg (35-45); ABG PH 7.45 (7.35-7.45); ABG PO2 101 mmHg (83-108); ABG TCO2 30 mmol/L (19-24); Allen Test Performed? Yes
[2022-01-13] MEDS: NOREPINEPHRINE 32 MG in SODIUM CHLORIDE 0.9% 218 ML IV SCH (06:17)
[2022-01-13 06:23] LABS: Glucose,Whole Blood 257 mg/dL (75-99)
[2022-01-13] MEDS: INSULIN DETEMIR (LEVEMIR) 100 UNIT/ML SYR SQ SCH (06:29)
[2022-01-13 07:04] LABS: Albumin 1.8 g/dL (3.5-5.0); Calcium 7.9 mg/dL (8.4-10.2); Magnesium 1.9 mg/dL (1.6-2.3); Phosphorus 3.6 mg/dL (2.5-4.5); Potassium 3.6 mmol/L (3.5-5.1); Total Bilirubin 0.6 mg/dL (0.2-1.3); Total Protein 4.5 g/dL (6.3-8.2)
[2022-01-13 07:32] LABS: INR 0.9 (<1.2); Prothrombin Time 9.8 sec (9.0-12.0)
[2022-01-13] MEDS ORDERED: Potassium Replacement Protocol 1 EACH MISC MISCELLANE PRN (07:51)
[2022-01-13] MEDS ORDERED: Magnesium Replacement Protocol 1 EACH MISC MISCELLANE PRN (07:51)
[2022-01-13] MEDS ORDERED: POTASSIUM BICARBONATE/CIT AC 20 MEQ TABLET.EFF NG-TUBE SCH (08:00)
[2022-01-13] MEDS: MAGNESIUM SULFATE-D5W PMX 1 GM in DEXTROSE/WATER 1 100ML.BAG IVPB SCH ×2 (08:09→09:49)
[2022-01-13] MEDS: ASPIRIN 81 MG PO SCH (08:10)
[2022-01-13] MEDS: AMIODARONE 200 MG TAB PO SCH ×2 (08:10→20:13)
[2022-01-13] MEDS: PANTOPRAZOLE 40 MG/10 ML VIAL IVP SCH (08:10)
[2022-01-13] MEDS: CHLORHEXIDINE GLUCONATE 15 ML CUP MUCOUS MEM SCH ×2 (08:10→20:13)
[2022-01-13] MEDS ORDERED: FUROSEMIDE 10 MG/ML 4 ML VIAL IV STA (08:39)
--- NOTE | 2022-01-13 08:44 | P.PN ---
Subjective Patient is seen in follow-up for acute kidney injury. Renal function fairly stable. Nonoliguric. Receiving TPN as well as tube feeds. On Levophed. Vital signs are stable. On vasopressor support. HEENT: Intubated. LUNGS: Lungs are clear to auscultation and percussion. Breath sounds decreased. HEART: Rate and Rhythm are regular. ABDOMEN: No distention. EXTREMITITES: No edema. Objective - Vital Signs Vital signs: Vital Signs Temp 100.3 F H 01/13/22 04:00 Pulse 85 01/13/22 07:15 Resp 22 01/13/22 07:15 BP 137/79 01/13/22 07:15 Pulse Ox 99 01/13/22 07:15 Intake & Output 01/12/22 01/13/22 01/13/22 18:59 06:59 18:59 Intake Total 2190 1825.000 Output Total 1115 1555 Balance 1075 270.000 Weight 98.2 kg Intake: IV 1680 1105 .9 NS 770 325 Fluconazole in NaCl,Iso- 50 Osm 100 mg In Saline 1 50ml.bag @ 50 mls/hr IVPB DAILY@1600 [facility] Rx#: [id number] Meropenem 1 gm In Sodium 200 Chloride 0.9% 100 ml @ 33 .3 mls/hr IVPB Q8HR [facility] Rx#:[id number] Parenteral Electrolytes 660 780 20 ml Potassium Chloride 20 meq In Amino Acid 4.25 %-D10w 1,000 ml @ 60 mls/ hr IV .BY DURATION [facility] Rx #:[id number] Intake, IV Titration 200 350.000 Amount Norepinephrine 32 mg In 250.000 Sodium Chloride 0.9% 218 ml @ 0.44 MCG/KG/MIN 18. 954 mls/hr IV .[id number] [facility] Rx#:[id number] propofoL 1,000 mg In 200 100 Empty Bag 1 bag @ Titrate IV .Q0M [facility] Rx#: [id number] Tube Feeding 220 220 Other 90 150 Output: Urine 1115 1555 ABP, PAP, CO, CI - Last Documented Arterial Blood Pressure 149/55 - Labs CBC & Chem 7: 01/12/22 05:25 01/13/22 06:20 Labs: Abnormal Lab Results - Last 24 Hours (Table) 01/12/22 01/12/22 01/12/22 Range/Units 11:29 12:31 19:11 ABG HCO3 (21-25) mmol/L ABG Total CO2 (19-24) mmol/L ABG O2 Saturation (94-97) % Chloride (98-107) mmol/L BUN (9-20) mg/dL Creatinine (0.66-1.25) mg/dL Glucose (74-99) mg/dL POC Glucose (mg/dL) 283 H 271 H 271 H (75-99) mg/dL Calcium (8.4-10.2) mg/dL Total Protein (6.3-8.2) g/dL Albumin (3.5-5.0) g/dL 01/13/22 01/13/22 01/13/22 Range/Units 02:00 06:06 06:20 ABG HCO3 29 H (21-25) mmol/L ABG Total CO2 30 H (19-24) mmol/L ABG O2 Saturation 97.6 H (94-97) % Chloride 112 H (98-107) mmol/L BUN 73 H (9-20) mg/dL Creatinine 2.09 H (0.66-1.25) mg/dL Glucose 244 H (74-99) mg/dL POC Glucose (mg/dL) 272 H (75-99) mg/dL Calcium 7.9 L (8.4-10.2) mg/dL Total Protein 4.5 L (6.3-8.2) g/dL Albumin 1.8 L (3.5-5.0) g/dL 01/13/22 Range/Units 06:22 ABG HCO3 (21-25) mmol/L ABG Total CO2 (19-24) mmol/L ABG O2 Saturation (94-97) % Chloride (98-107) mmol/L BUN (9-20) mg/dL Creatinine (0.66-1.25) mg/dL Glucose (74-99) mg/dL POC Glucose (mg/dL) 257 H (75-99) mg/dL Calcium (8.4-10.2) mg/dL Total Protein (6.3-8.2) g/dL Albumin (3.5-5.0) g/dL Microbiology - Last 24 Hours (Table) 01/10/22 11:55 Blood Culture - Final Blood 01/11/22 16:39 Blood Culture - Preliminary Blood No Growth after 24 hours Assessment and Plan Plan: Assessment: 1. Acute kidney injury secondary to ATN secondary to septic shock and ob structive uropathy. Patient fairly stable. Creatinine 2.09 today. Nonoliguric. 2. Strangulated parastomal hernia status post for a laparotomy with repair of hernia, small bowel resection with ileostomy on 01/06/2022. 3. History of bladder cancer status post cystectomy and ileal loop urostomy. 4. Pseudomonas bacteremia on antibiotics. 5. Metabolic acidosis secondary to acute kidney injury. Status post IV bicarb. Resolved. Plan: Maintain TPN. Also receiving tube feeds. Wean FiO2 and vasopressors. Avoid nephrotoxins. Continue to monitor renal function and urine output. Potassium being replaced.
--- NOTE | 2022-01-13 08:50 | XR ---
EXAMINATION TYPE: XR chest 1V portable DATE OF EXAM: 01/13/2022 COMPARISON: 01/12/2022 HISTORY: Tube placement TECHNIQUE: Single frontal view of the chest is obtained. FINDINGS: ET and NG tube and right-sided central line stable and there is a diffuse interstitial pat tern with bilateral infiltrate and pleural effusion. Hypertrophic and degenerative change of the spin e. Atherosclerotic change aorta. Diffuse osteopenia and arthropathy shoulders. IMPRESSION: 1. Diffuse bilateral infiltrate with pleural effusion correlate for CHF, ARDS or diffuse pneumonia.
[2022-01-13] MEDS: IPRATROPIUM-ALBUTEROL 3 ML NEB INHALATION SCH ×4 (09:21→19:48)
--- NOTE | 2022-01-13 10:09 | P.PN ---
Subjective Progress Note Date: 01/13/22 Principal diagnosis: Respiratory failure. Reevaluated today on 01/10/2022, patient remains in the ICU, intubated and mechanically ventilated sedated, but not paralyzed. Patient is on assist control mode of mechanical ventilation rate of 20, volume 500 FiO2 40% and PEEP of 8. ABG showed a pO2 of 106 pCO2 45 pH of 7.45. Patient is still requiring hemodynamic support, he is on vasopressin at 0.03 units per minute, norepinephrine at 0.24 mcg/kg/m. Total of 22 mcg/m. He is on fentanyl at 2 mcg/kg/m. And on propofol at 35 mcg/kg/m. Chest x-ray continues to show bilateral interstitial edema and/or infiltrates. Patient received significant amount of fluids on his initial presentation when he was septic and hypotensive, later on he was placed on pressors in the form of vasopressin and norepinephrine. CVP today is 8, hence no need for more fluids and no need for aggressive diuresis. Patient remains on bicarb drip at 50 mL per hour, and I will go ahead and discontinue bicarbonate based on his electrolytes and based on his ABG. His bicarb is 31. Renal profile today is improving, it was as high as 3.8, creatinine now is 2.72. WBC count is 4.5 hemoglobin is 8.6. Patient remains on Zosyn for his Pseudomonas bacteremia and I believe the most likely source of his Pseudomonas is his GI tract patient remains on GI and DVT prophylaxis. Platelets are 98,000, not unexpected considering the patient is septic and has septic shock on presentation Reevaluated today on 01/11/2022, patient remains in the ICU, intubated and mechanically ventilated. He is on assist control rate of 2012 volume 500 FiO2 40% and PEEP of 8. Today I cut down the PEEP down to 6. ABG showed a pO2 of 135 pCO2 41 pH of 7.46. WBC count is 5.4 hemoglobin 8.5. Electrolytes are normal, renal profile is improving with a BUN 63 creatinine is down to 2.53. Creatinine was as high as 3.80 few days ago. Chest x-ray continues to show bilateral interstitial infiltrates/interstitial edema but nonetheless it is improving. Patient remains empirically on antibiotics for his Pseudomonas bacteremia and sepsis as well as septic shock. His platelets are noted to go down further today, hence I'm holding the heparin, patient will have Venodyne boots, and we will order a heparin-induced thrombocytopenia profile. Noted today that the patient was changed to Merrem instead of Zosyn. Mostly because the sensitivity on the pseudomonas seems to be intermediate to Zosyn. However it is sensitive to Merrem. Patient is still requiring norepinephrine he is on 0.21 mcg/kg/minute, and he is off vasopressin. I have a feeling that the patient will likely even though much less on norepinephrine if we cut down his sedation especially his fentanyl. And I plan to do so. We'll try to manage the patient's sedation only with propofol if possible. Reevaluated today on 01/12/2022, patient remains in the ICU, intubated and mechanically ventilated. Patient is on assist control rate of 20, volume 500 FiO2 40% and PEEP of 6. ABG showed a pO2 of 97 pCO2 42 pH of 7.45. Chest x-ray continues to show bilateral infiltrates, and possibly some component of interstitial edema. His WBC count is 8.7 hemoglobin is 8.1 and hematocrit is 25.7. Patient remains on propofol at 50 mcg/kg/m, remains on norepinephrine at 0.25, IV fluids at 75 mL per hour. Electrolytes showed low potassium of 3.4, BUN is 66 creatinine is 2.18, steadily improving. Patient is receiving Nepro and he is still on TPN. Platelets are down to 83, patient remains off heparin even subcu heparin. Workup for heparin-induced thrombocytopenia is pending. Patient remains on Merrem for pseudomonas aeruginosa bacteremia sepsis and septic shock. Progress note dated 01/13/2022. 72-year-old male, again seen in room 261. The patient was initially admitted back on 01/06, for abdominal pain, and an incarcerated hernia. The patient went to the operating room on 01/06, for exploratory laparotomy and ileostomy. The patient was extubated successfully, but came to the intensive care unit on 01/07/2022, and was intubated on 01/07/2022. The patient remains on the mechanical ventilator. Blood cultures show evidence of Pseudomonas. Currently, he's on meropenem and fluconazole. He will get some Lasix IV push today, as he is quite edematous. Current ventilator settings include the volume assist control mode, rate 20, tidal volume 500, FiO2 40%, and PEEP of 6. Arterial blood gases show pO2 101, pCO2 42, and pH 7.45. The patient remains on norepinephrine at 25 mcg/m, propofol at 35 mcg/kg/m, TPN at 60 mL an hour, tube feedings with Nepro at 20 mL an hour, and saline at 25 mL an hour. Because of the ongoing use of norepinephrine, I asked the nurses to draw a stat TSH and random cortisol. Current laboratory data includes a sodium 143, potassium 3.6, chlorides 112, CO2 27, anion gap 4, BUN 73, and creatinine 2.09. Blood cultures from January 06 and January 07 both show evidence of pseudomonas aeruginosa. Chest x-ray shows diffuse bilateral infiltrates. Objective - Vital Signs Vital signs: Vital Signs Temp 99.1 F 01/13/22 08:00 Pulse 91 01/13/22 09:00 Resp 23 01/13/22 09:00 BP 123/65 01/13/22 09:00 Pulse Ox 98 01/13/22 09:00 Intake & Output 01/12/22 01/13/22 01/13/22 18:59 06:59 18:59 Intake Total 2190 1925.000 471.530 Output Total 1115 1555 315 Balance 1075 370.000 156.530 Weight 98.2 kg Intake: IV 1680 1105 175 .9 NS 770 325 75 Fluconazole in NaCl,Iso- 50 Osm 100 mg In Saline 1 50ml.bag @ 50 mls/hr IVPB DAILY@1600 [facility] Rx#: [id number] Meropenem 1 gm In Sodium 200 100 Chloride 0.9% 100 ml @ 33 .3 mls/hr IVPB Q8HR [facility] Rx#:[id number] Parenteral Electrolytes 660 780 20 ml Potassium Chloride 20 meq In Amino Acid 4.25 %-D10w 1,000 ml @ 60 mls/ hr IV .BY DURATION [facility] Rx #:[id number] Intake, IV Titration 200 450.000 236.530 Amount Magnesium Sulfate-D5w Pmx 200 1 gm In Dextrose/Water 1 100ml.bag @ 100 mls/hr IVPB Q1H [facility] Rx#: [id number] Norepinephrine 32 mg In 250.000 36.530 Sodium Chloride 0.9% 218 ml @ 0.44 MCG/KG/MIN 18. 954 mls/hr IV .[id number] [facility] Rx#:[id number] propofoL 1,000 mg In 200 200 Empty Bag 1 bag @ Titrate IV .Q0M [facility] Rx#: [id number] Tube Feeding 220 220 60 Other 90 150 Output: Urine 1115 1555 315 ABP, PAP, CO, CI - Last Documented Arterial Blood Pressure 134/55 - Exam No acute distress, sedated and intubated, with an orally placed endotracheal tube and NG tube. HEENT examination is grossly unremarkable. Neck supple. Full range of motion. No adenopathy thyromegaly or neck vein distention. Cardiovascular examination reveals regular rhythm rate. S1-S2 normal. No S3 or S4. No discernible murmur noted. Heart sounds are distant. Heart rate 91 bpm. Lungs reveal coarse bilateral rhonchi. Breath sounds equal. No wheezes or crackles. Saturations are 98-99%. Abdomen soft, without bowel sounds. A urostomy bag and a ileostomy bag is noted. Extremities are intact. No cyanosis or clubbing. Diffuse anasarca is noted. Skin is without rash or lesion. Neurologic examination cannot be adequately assessed as the patient's currently sedated. - Labs CBC & Chem 7: 01/12/22 05:25 01/13/22 06:20 Labs: Abnormal Lab Results - Last 24 Hours (Table) 01/12/22 01/12/22 01/12/22 Range/Units 11:29 12:31 19:11 ABG HCO3 (21-25) mmol/L ABG Total CO2 (19-24) mmol/L ABG O2 Saturation (94-97) % Chloride (98-107) mmol/L BUN (9-20) mg/dL Creatinine (0.66-1.25) mg/dL Glucose (74-99) mg/dL POC Glucose (mg/dL) 283 H 271 H 271 H (75-99) mg/dL Calcium (8.4-10.2) mg/dL Total Protein (6.3-8.2) g/dL Albumin (3.5-5.0) g/dL 01/13/22 01/13/22 01/13/22 Range/Units 02:00 06:06 06:20 ABG HCO3 29 H (21-25) mmol/L ABG Total CO2 30 H (19-24) mmol/L ABG O2 Saturation 97.6 H (94-97) % Chloride 112 H (98-107) mmol/L BUN 73 H (9-20) mg/dL Creatinine 2.09 H (0.66-1.25) mg/dL Glucose 244 H (74-99) mg/dL POC Glucose (mg/dL) 272 H (75-99) mg/dL Calcium 7.9 L (8.4-10.2) mg/dL Total Protein 4.5 L (6.3-8.2) g/dL Albumin 1.8 L (3.5-5.0) g/dL 01/13/22 Range/Units 06:22 ABG HCO3 (21-25) mmol/L ABG Total CO2 (19-24) mmol/L ABG O2 Saturation (94-97) % Chloride (98-107) mmol/L BUN (9-20) mg/dL Creatinine (0.66-1.25) mg/dL Glucose (74-99) mg/dL POC Glucose (mg/dL) 257 H (75-99) mg/dL Calcium (8.4-10.2) mg/dL Total Protein (6.3-8.2) g/dL Albumin (3.5-5.0) g/dL Microbiology - Last 24 Hours (Table) 01/10/22 11:55 Blood Culture - Final Blood 01/11/22 16:39 Blood Culture - Preliminary Blood No Growth after 24 hours Assessment and Plan Assessment: Acute hypoxemic respiratory failure secondary to septic shock, from pseudomonas aeruginosa bacteremia, likely related to a GI source. Status post exploratory laparotomy with repair of strangulated parastomal hernia, small bowel resection, incisional hernia repair, and ileostomy, on January 06, postop day #7. Status post intubation on 01/07/2022, for respiratory failure. Routine postoperative ventilator management. Hypotension, secondary to septic shock, still requiring norepinephrine. Pseudomonas aeruginosa bacteremia. Lactic acidosis, secondary to sepsis, resolved. Acute kidney injury secondary to septic shock. History of bladder cancer, status post urostomy. Type 2 diabetes. Hyperlipidemia. CAD with previous stent placement. Tobacco dependence syndrome. New onset atrial fibrillation. Plan: Plan dated 01/13/2022. The patient will have a stat TSH and cortisol level sent. The patient remains on antibiotic for Pseudomonas bacteremia. Labs, x-rays, and medications are all reviewed. The patient's postop day #7. Patient was intubated for respiratory failure on 01/07/2022. We continue with postoperative ventilator management. We will continue to follow make recommendations where appropriate. Prognosis is very guarded. Time with Patient: Greater than 30
--- NOTE | 2022-01-13 11:50 | P.PN ---
Subjective Progress Note Date: 01/13/22 This is a 72-year-old gentleman with history of coronary artery disease with previous PCI, diabetes mellitus, hypertension and hyperlipidemia and also history of bladder cancer with urostomy. Patient is status post surgery for perforated viscus. Patient is also intubated. His echocardiogram showed an ej ection fraction about 35-40% with global hypokinesia without any significant valvular abnormalities. Patient had an episode of A. fib but converted back to sinus rhythm. In the rhythm appears to be mostly is a sinus rhythm with APCs are multifocal atrial rhythm at this time. Objective - Vital Signs Vital signs: Vital Signs Temp 99.1 F 01/13/22 08:00 Pulse 83 01/13/22 11:39 Resp 23 01/13/22 09:00 BP 123/65 01/13/22 09:00 Pulse Ox 98 01/13/22 09:00 Intake & Output 01/12/22 01/13/22 01/13/22 18:59 06:59 18:59 Intake Total 2190 1925.000 471.530 Output Total 1115 1555 715 Balance 1075 370.000 -243.470 Weight 98.2 kg Intake: IV 1680 1105 175 .9 NS 770 325 75 Fluconazole in NaCl,Iso- 50 Osm 100 mg In Saline 1 50ml.bag @ 50 mls/hr IVPB DAILY@1600 [facility] Rx#: [id number] Meropenem 1 gm In Sodium 200 100 Chloride 0.9% 100 ml @ 33 .3 mls/hr IVPB Q8HR [facility] Rx#:[id number] Parenteral Electrolytes 660 780 20 ml Potassium Chloride 20 meq In Amino Acid 4.25 %-D10w 1,000 ml @ 60 mls/ hr IV .BY DURATION [facility] Rx #:[id number] Intake, IV Titration 200 450.000 236.530 Amount Magnesium Sulfate-D5w Pmx 200 1 gm In Dextrose/Water 1 100ml.bag @ 100 mls/hr IVPB Q1H [facility] Rx#: [id number] Norepinephrine 32 mg In 250.000 36.530 Sodium Chloride 0.9% 218 ml @ 0.44 MCG/KG/MIN 18. 954 mls/hr IV .[id number] [facility] Rx#:[id number] propofoL 1,000 mg In 200 200 Empty Bag 1 bag @ Titrate IV .Q0M [facility] Rx#: [id number] Tube Feeding 220 220 60 Other 90 150 Output: Urine 1115 1555 315 Stool 400 ABP, PAP, CO, CI - Last Documented Arterial Blood Pressure 134/55 - Exam GENERAL EXAM: Patient is intubated and sedated HEENT: Normocephalic. Normal reaction of pupils, equal size, normal range of extraocular motion. No erythema or exudates in the throat. NECK: No masses, no nuchal rigidity. CHEST: No chest wall deformity. LUNGS: Diminished air exchange HEART: S1 and S2 normal . Distant heart sounds ABDOMEN: No hepatosplenomegaly, normal bowel sounds, no guarding or rigidity. SKIN: No rashes CENTRAL NERVOUS SYSTEM: Deferred EXTREMITIES: No cyanosis, clubbing or edema. - Labs CBC & Chem 7: 01/12/22 05:25 01/13/22 06:20 Labs: Abnormal Lab Results - Last 24 Hours (Table) 01/12/22 01/12/22 01/13/22 Range/Units 12:31 19:11 02:00 ABG HCO3 (21-25) mmol/L ABG Total CO2 (19-24) mmol/L ABG O2 Saturation (94-97) % Chloride (98-107) mmol/L BUN (9-20) mg/dL Creatinine (0.66-1.25) mg/dL Glucose (74-99) mg/dL POC Glucose (mg/dL) 271 H 271 H 272 H (75-99) mg/dL Calcium (8.4-10.2) mg/dL Total Protein (6.3-8.2) g/dL Albumin (3.5-5.0) g/dL 01/13/22 01/13/22 01/13/22 Range/Units 06:06 06:20 06:22 ABG HCO3 29 H (21-25) mmol/L ABG Total CO2 30 H (19-24) mmol/L ABG O2 Saturation 97.6 H (94-97) % Chloride 112 H (98-107) mmol/L BUN 73 H (9-20) mg/dL Creatinine 2.09 H (0.66-1.25) mg/dL Glucose 244 H (74-99) mg/dL POC Glucose (mg/dL) 257 H (75-99) mg/dL Calcium 7.9 L (8.4-10.2) mg/dL Total Protein 4.5 L (6.3-8.2) g/dL Albumin 1.8 L (3.5-5.0) g/dL Microbiology - Last 24 Hours (Table) 01/10/22 11:55 Blood Culture - Final Blood 01/11/22 16:39 Blood Culture - Preliminary Blood No Growth after 24 hours Assessment and Plan (1) Atrial fibrillation Current Visit: Yes Status: Acute Code(s): I48.91 - UNSPECIFIED ATRIAL FIBRILLATION SNOMED Code(s): 53603935 (2) Bowel perforation Current Visit: Yes Status: Acute Code(s): K63.1 - PERFORATION OF INTESTINE (NONTRAUMATIC) SNOMED Code(s): 88484885 (3) Chronic renal failure Current Visit: Yes Status: Acute Code(s): N18.9 - CHRONIC KIDNEY DISEASE, UNSPECIFIED SNOMED Code(s): 92328025 (4) Strangulated hernia of abdominal wall Current Visit: Yes Status: Acute Code(s): K43.6 - OTHER AND UNSP VENTRAL HERNIA WITH OBSTRUCTION, W/O GANGRENE SNOMED Code(s): 46499448 Plan: Patient is back in what looks to sinus rhythm with APCs or multifocal atrial rhythm. Continue current cardiac management. Rest of the management as for the ancillary services manager
[2022-01-13 12:05] LABS: Glucose,Whole Blood 277 mg/dL (75-99)
--- NOTE | 2022-01-13 13:47 | P.PN ---
Subjective Progress Note Date: 01/13/22 Xavier Langford is a 72 yo M with PMH of bladder cancer s/p cystectomy and urostomy, CAD, T2DM, who presented to the ED complaining of worsening abdominal pain and distention. CT on presentation showed large parastomal hernia obstructing his ileal conduit and concern for strangulation and possible perforation. Initial WBC 12.2. Hemoglobin 10.4. Sodium 138. Potassium 4.8. BUN 47. Creatinine 3.17. Glucose 252. Plasma lactic acid 2.2, trop negative. Pt underwent exploratory laparotomy, repair of strangulated parastomal hernia, small bowel resection with ileostomy, repair of incisional hernia. Today his labs reflect drop in WBC to 2.6, Potassium 6.1, Cr 3.8. Blood cultures preliminary revealing gram-negative bacilli. 01/08/22 Tachycardic, heart rates in the 120s to 130s, tachypneic.Maintained on Zo syn, blood culture reporting pseudomonas aeruginosa . Urine culture pending. Currently afebrile. Maintaining O2 sats in the high 90s on 2 L nasal cannula.Maintained on IV fluid hydration, and Levophed. Good urine output. Creatinine decreased to 3.65. ABGs reflecting metabolic acidosis, bicarb drip initiated. Complains of abdominal pain, greater on the right. Blood sugars controlled on low-dose Levemir. 01/09/2022 Developed atrial fibrillation with RVR in addition to respiratory distress requiring intubation and antiarrhythmics last night. Currently on FiO2 40%/+8 of PEEP. Maintained on fentanyl, bicarb, diprovan, amiodarone, vasopressin and the Levophed drips. Telemetry currently sinus rhythm .Continues on Zosyn for Pseudomonas bacteremia. Urine cultures negative. Sputum culture pending. Multiple fluid boluses yesterday, chest x-ray this morning reporting possible pneumonia, CHF, interstitial lung disease. Afebrile, T-max 99.4, normal WBC. Hemoglobin 8.8, platelets 135. Creatinine trending down, 3.15,Magnesium 1.6, nephrology following. 01/10/22 Remains vent dependent, FiO2 40%/+8 peep. Chest x-ray reporting stable bilateral infiltrate and pleural effusion, possible CHF superimposed on background of chronic interstitial pulmonary fibrosis and COPD, possible un derlying pneumonia. Telemetry sinus rhythm. 2-D echo completed, results pending .Maintained on bicarb, fentanyl, vasopressin, Levophed, diprovan drips. Hemoglobin 8.6 Creatinine continues to improve down to 2.72. T-max 99.8, WBC 4.5. Continues on Zosyn. 01/13/2010 remains vent dependent, FiO2 40%/+6 of PEEP. Chest x-ray pending. Maintained on diprovan, Levophed drips. T-max 100.1. Pseudomonas bacteremia suspect related to the abdomen. Maintained on meropenem, fluconazole. Preliminary repeat blood cultures currently reporting no growth after 24 hours. BUN 73, creatinine 2.09. Received a dose of Lasix today-generalized edema. Continues on TPN, tube feeds. Objective - Vital Signs Vital signs: Vital Signs Temp 99.1 F 01/13/22 08:00 Pulse 82 01/13/22 12:00 Resp 19 01/13/22 12:00 BP 105/63 01/13/22 11:00 Pulse Ox 99 01/13/22 12:00 Intake & Output 01/12/22 01/13/22 01/13/22 18:59 06:59 18:59 Intake Total 2190 1925.000 561.530 Output Total 1115 1555 1215 Balance 1075 370.000 -653.470 Weight 98.2 kg Intake: IV 1680 1105 225 .9 NS 770 325 125 Fluconazole in NaCl,Iso- 50 Osm 100 mg In Saline 1 50ml.bag @ 50 mls/hr IVPB DAILY@1600 [facility] Rx#: [id number] Meropenem 1 gm In Sodium 200 100 Chloride 0.9% 100 ml @ 33 .3 mls/hr IVPB Q8HR [facility] Rx#:[id number] Parenteral Electrolytes 660 780 20 ml Potassium Chloride 20 meq In Amino Acid 4.25 %-D10w 1,000 ml @ 60 mls/ hr IV .BY DURATION [facility] Rx #:[id number] Intake, IV Titration 200 450.000 236.530 Amount Magnesium Sulfate-D5w Pmx 200 1 gm In Dextrose/Water 1 100ml.bag @ 100 mls/hr IVPB Q1H [facility] Rx#: [id number] Norepinephrine 32 mg In 250.000 36.530 Sodium Chloride 0.9% 218 ml @ 0.44 MCG/KG/MIN 18. 954 mls/hr IV .[id number] [facility] Rx#:[id number] propofoL 1,000 mg In 200 200 Empty Bag 1 bag @ Titrate IV .Q0M [facility] Rx#: [id number] Tube Feeding 220 220 100 Other 90 150 Output: Urine 1115 1555 815 Stool 400 ABP, PAP, CO, CI - Last Documented Arterial Blood Pressure 129/52 - Exam General: Intubated and sedated Eyes: PERRL, EOMI, conjunctiva normal HENT: normocephalic, atraumatic Neck: supple, no JVD Lungs: normal respiratory effort, coarse rhonchi, no wheezes. CV: Regular rate and rhythm, no murmur. Peripheral pulses 2+ Abdomen: Distended,tense, ileostomy and urostomy,hypoactive BS. Skin: warm and dry. - Labs CBC & Chem 7: 01/12/22 05:25 01/13/22 06:20 Labs: Abnormal Lab Results - Last 24 Hours (Table) 01/12/22 01/13/22 01/13/22 Range/Units 19:11 02:00 06:06 ABG HCO3 29 H (21-25) mmol/L ABG Total CO2 30 H (19-24) mmol/L ABG O2 Saturation 97.6 H (94-97) % Chloride (98-107) mmol/L BUN (9-20) mg/dL Creatinine (0.66-1.25) mg/dL Glucose (74-99) mg/dL POC Glucose (mg/dL) 271 H 272 H (75-99) mg/dL Calcium (8.4-10.2) mg/dL Total Protein (6.3-8.2) g/dL Albumin (3.5-5.0) g/dL 01/13/22 01/13/22 01/13/22 Range/Units 06:20 06:22 12:03 ABG HCO3 (21-25) mmol/L ABG Total CO2 (19-24) mmol/L ABG O2 Saturation (94-97) % Chloride 112 H (98-107) mmol/L BUN 73 H (9-20) mg/dL Creatinine 2.09 H (0.66-1.25) mg/dL Glucose 244 H (74-99) mg/dL POC Glucose (mg/dL) 257 H 277 H (75-99) mg/dL Calcium 7.9 L (8.4-10.2) mg/dL Total Protein 4.5 L (6.3-8.2) g/dL Albumin 1.8 L (3.5-5.0) g/dL Microbiology - Last 24 Hours (Table) 01/10/22 11:55 Blood Culture - Final Blood 01/11/22 16:39 Blood Culture - Preliminary Blood No Growth after 24 hours Assessment and Plan Assessment: Septic shock secondary to Pseudomonas bacteremia, etiology unclear, suspect abdomen Acute hypoxic respiratory failure secondary to the above. Pseudomonas Bacteremia Hypotension, secondary to septic shock, pressor dependent Acute renal failure secondary to septic shock, hypotension Atrial fibrillation with RVR, new onset-suspect related to septic shock and bacteremia, currently sinus rhythm Thrombocytopenia, HIT W/U in progress Hyperkalemia secondary to the above Labs acidosis secondary to septic shock with bacteremia Metabolic acidosis secondary to acute renal failure, currently on bicarb drip Incarcerated hernia status post colostomy creation Diabetes mellitus type 2 History of bladder cancer with previous urostomy Plan: Continue on current medication regime ,monitoring and symptomatic treatment. HIT workup in progress .Antibiotics as per ID. ICU management as per milieu manager. Prognosis guarded given multiple complex medical issues. The impression and plan of care has been dictated as directed. : I performed a history and examination of this patient, discussed the same with the dictator. I agree with the dictator's note ,documented as a scribe. Any additional findings or plans will be noted.
--- NOTE | 2022-01-13 14:56 | P.PN ---
Subjective Progress Note Date: 01/13/22 CHIEF COMPLAINT: Strangulated parastomal hernia HISTORY OF PRESENT ILLNESS: Patient is status post Exploratory laparotomy, Repair of strangulated parastomal hernia, Small bowel resection with ileostomy and Repair of incisional hernia. POD #7. Patient is intubated and on mechanical ventilation. On he is on TPN as well as tube feeds at 20 mL per hour. He did receive a dose of IV Lasix for edema. He is also still requiring norepinephrine. Patient has been having fevers to 100.3 WBC is 8.7 hemoglobin 8.1 platelets 83 sodium 143 potassium 3.6 creatinine 2.09 albumin 1.8 Patient seen and examined with Dr. allen PHYSICAL EXAM: VITAL SIGNS: Reviewed. GENERAL: Well-developed in no acute distress. HEENT: No sclera icterus. Extraocular movements grossly intact. Moist buccal mucosa. Head is atraumatic, normocephalic. ABDOMEN: Soft. Nondistended. Incision site with 2 areas of purulent drainage. Ileostomy stoma pink. Stool present in ileostomy bag. Urostomy's stoma less dusky and becoming more pink. Urine is clear NEUROLOGIC: Alert and oriented. Cranial nerves II through XII grossly intact. ASSESSMENT: 1. Strangulated parastomal hernia and incisional hernia status post Exploratory laparotomy, Repair of strangulated parastomal hernia, Small bowel resection with ileostomy and Repair of incisional hernia 2. Abdominal incision infection 3. History of bladder cancer with urostomy 4. Acute kidney injury 5. Sepsis and septic shock 6. Bacteremia with Pseudomonas 7. New onset of A. fib PLAN: -Dr. allen removed 4 yuliya from abdominal incision. There is an opening in the upper area of the incision and the distal aspect of the incision areas was packed with gauze. Purulent drainage was noted. -Continue local wound care -Continue ICU management -Continue supportive care -Continue antibiotics per ID -DVT prophylaxis subcu heparin and GI prophylaxis Protonix Physician Disassembler note has been reviewed by physician. Signing provider agrees with the documented findings, assessment, and plan of care. Objective - Vital Signs Vital signs: Vital Signs Temp 99.1 F 01/13/22 08:00 Pulse 82 01/13/22 12:00 Resp 19 01/13/22 12:00 BP 105/63 01/13/22 11:00 Pulse Ox 99 01/13/22 12:00 Intake & Output 01/12/22 01/13/22 01/13/22 18:59 06:59 18:59 Intake Total 2190 1925.000 701.773 Output Total 1115 1555 1215 Balance 1075 370.000 -513.227 Weight 98.2 kg 98.2 kg Intake: IV 1680 1105 225 .9 NS 770 325 125 Fluconazole in NaCl,Iso- 50 Osm 100 mg In Saline 1 50ml.bag @ 50 mls/hr IVPB DAILY@1600 [facility] Rx#: [id number] Meropenem 1 gm In Sodium 200 100 Chloride 0.9% 100 ml @ 33 .3 mls/hr IVPB Q8HR [facility] Rx#:[id number] Parenteral Electrolytes 660 780 20 ml Potassium Chloride 20 meq In Amino Acid 4.25 %-D10w 1,000 ml @ 60 mls/ hr IV .BY DURATION [facility] Rx #:[id number] Intake, IV Titration 200 450.000 376.773 Amount Magnesium Sulfate-D5w Pmx 200 1 gm In Dextrose/Water 1 100ml.bag @ 100 mls/hr IVPB Q1H [facility] Rx#: [id number] Norepinephrine 32 mg In 250.000 76.773 Sodium Chloride 0.9% 218 ml @ 0.44 MCG/KG/MIN 18. 954 mls/hr IV .[id number] [facility] Rx#:[id number] propofoL 1,000 mg In 200 200 100 Empty Bag 1 bag @ Titrate IV .Q0M [facility] Rx#: [id number] Tube Feeding 220 220 100 Other 90 150 Output: Urine 1115 1555 815 Stool 400 ABP, PAP, CO, CI - Last Documented Arterial Blood Pressure 129/52 - Labs CBC & Chem 7: 01/12/22 05:25 01/13/22 06:20 Labs: Abnormal Lab Results - Last 24 Hours (Table) 01/12/22 01/13/22 01/13/22 Range/Units 19:11 02:00 06:06 ABG HCO3 29 H (21-25) mmol/L ABG Total CO2 30 H (19-24) mmol/L ABG O2 Saturation 97.6 H (94-97) % Chloride (98-107) mmol/L BUN (9-20) mg/dL Creatinine (0.66-1.25) mg/dL Glucose (74-99) mg/dL POC Glucose (mg/dL) 271 H 272 H (75-99) mg/dL Calcium (8.4-10.2) mg/dL Total Protein (6.3-8.2) g/dL Albumin (3.5-5.0) g/dL 01/13/22 01/13/22 01/13/22 Range/Units 06:20 06:22 12:03 ABG HCO3 (21-25) mmol/L ABG Total CO2 (19-24) mmol/L ABG O2 Saturation (94-97) % Chloride 112 H (98-107) mmol/L BUN 73 H (9-20) mg/dL Creatinine 2.09 H (0.66-1.25) mg/dL Glucose 244 H (74-99) mg/dL POC Glucose (mg/dL) 257 H 277 H (75-99) mg/dL Calcium 7.9 L (8.4-10.2) mg/dL Total Protein 4.5 L (6.3-8.2) g/dL Albumin 1.8 L (3.5-5.0) g/dL Microbiology - Last 24 Hours (Table) 01/10/22 11:55 Blood Culture Gram Stain - Preliminary Blood 01/10/22 11:55 Blood Culture - Final Blood 01/11/22 16:39 Blood Culture - Preliminary Blood No Growth after 24 hours
[2022-01-13] MEDS: FLUCONAZOLE IN NACL,ISO-OSM 100 MG in SALINE 1 50ML.BAG IVPB SCH (16:33)
[2022-01-13 18:07] LABS: Glucose,Whole Blood 225 mg/dL (75-99)
--- NOTE | 2022-01-13 22:12 | P.PN ---
Subjective Progress Note Date: 01/13/22 Principal diagnosis: Pseudomonas bacteremia Patient is 72-year-old male, presented to hospital with abdominal pain has been diagnosed with strangulated parastomal hernia, in this patient was status post exploratory laparotomy, small bowel resection with ileostomy and re pair of incisional hernia patient was noticed to have a positive blood culture has been finalized with pseudomonas aeruginosa, patient was transferred to the ICU because of hypotension. On today's evaluation that is 01/13/2022, the patient did have a fever of 100F this morning, patient intubated on the vent and FiO2 is currently stable at 40%, the patient is hemodynamically stable and pressors are currently being weaned off, no significant purulent secretions through the ET or diarrhea reported by the nursing staff Objective - Vital Signs Vital signs: Vital Signs Temp 99.1 F 01/13/22 08:00 Pulse 82 01/13/22 12:00 Resp 19 01/13/22 12:00 BP 105/63 01/13/22 11:00 Pulse Ox 99 01/13/22 12:00 Intake & Output 01/12/22 01/13/22 01/13/22 18:59 06:59 18:59 Intake Total 2190 1925.000 561.530 Output Total 1115 1555 1215 Balance 1075 370.000 -653.470 Weight 98.2 kg Intake: IV 1680 1105 225 .9 NS 770 325 125 Fluconazole in NaCl,Iso- 50 Osm 100 mg In Saline 1 50ml.bag @ 50 mls/hr IVPB DAILY@1600 [facility] Rx#: [id number] Meropenem 1 gm In Sodium 200 100 Chloride 0.9% 100 ml @ 33 .3 mls/hr IVPB Q8HR [facility] Rx#:[id number] Parenteral Electrolytes 660 780 20 ml Potassium Chloride 20 meq In Amino Acid 4.25 %-D10w 1,000 ml @ 60 mls/ hr IV .BY DURATION [facility] Rx #:[id number] Intake, IV Titration 200 450.000 236.530 Amount Magnesium Sulfate-D5w Pmx 200 1 gm In Dextrose/Water 1 100ml.bag @ 100 mls/hr IVPB Q1H [facility] Rx#: [id number] Norepinephrine 32 mg In 250.000 36.530 Sodium Chloride 0.9% 218 ml @ 0.44 MCG/KG/MIN 18. 954 mls/hr IV .[id number] [facility] Rx#:[id number] propofoL 1,000 mg In 200 200 Empty Bag 1 bag @ Titrate IV .Q0M [facility] Rx#: [id number] Tube Feeding 220 220 100 Other 90 150 Output: Urine 1115 1555 815 Stool 400 ABP, PAP, CO, CI - Last Documented Arterial Blood Pressure 129/52 - Exam GENERAL DESCRIPTION: An elderly male intubated on the vent RESPIRATORY SYSTEM: Unlabored breathing , decreased breath sounds at bases HEART: S1 S2 regular rate and rhythm , ABDOMEN: Soft , mild distention, no tenderness EXTREMITIES: No edema feeT - Labs CBC & Chem 7: 01/12/22 05:25 01/13/22 06:20 Labs: Abnormal Lab Results - Last 24 Hours (Table) 01/12/22 01/13/22 01/13/22 Range/Units 19:11 02:00 06:06 ABG HCO3 29 H (21-25) mmol/L ABG Total CO2 30 H (19-24) mmol/L ABG O2 Saturation 97.6 H (94-97) % Chloride (98-107) mmol/L BUN (9-20) mg/dL Creatinine (0.66-1.25) mg/dL Glucose (74-99) mg/dL POC Glucose (mg/dL) 271 H 272 H (75-99) mg/dL Calcium (8.4-10.2) mg/dL Total Protein (6.3-8.2) g/dL Albumin (3.5-5.0) g/dL 01/13/22 01/13/22 01/13/22 Range/Units 06:20 06:22 12:03 ABG HCO3 (21-25) mmol/L ABG Total CO2 (19-24) mmol/L ABG O2 Saturation (94-97) % Chloride 112 H (98-107) mmol/L BUN 73 H (9-20) mg/dL Creatinine 2.09 H (0.66-1.25) mg/dL Glucose 244 H (74-99) mg/dL POC Glucose (mg/dL) 257 H 277 H (75-99) mg/dL Calcium 7.9 L (8.4-10.2) mg/dL Total Protein 4.5 L (6.3-8.2) g/dL Albumin 1.8 L (3.5-5.0) g/dL Microbiology - Last 24 Hours (Table) 01/10/22 11:55 Blood Culture - Final Blood 01/11/22 16:39 Blood Culture - Preliminary Blood No Growth after 24 hours Assessment and Plan (1) Bacteremia Current Visit: Yes Status: Acute Code(s): R78.81 - BACTEREMIA SNOMED Code(s): 0728152 Plan: 1-Patient with pseudomonas bacteremia source is likely abdominal and this patient presented to the hospital with incarcerated hernia status post small bowel resection and ileostomy and repair of the hernia patient did have worsening of his respiratory status requiring intubation, patient pseudomonas with intermediate sensitivity to Zosyn and cefepime, patient is currently being treated with meropenem repeat blood culture has been negative 2-positive sputum culture with Vesta likely colonizer, continue supportive care Time with Patient: Less than 30
[2022-01-14] MEDS: NOREPINEPHRINE 32 MG in SODIUM CHLORIDE 0.9% 218 ML IV SCH ×2 (01:59→07:29)
[2022-01-14] MEDS: 1: PARENTERAL ELECTROLYTES 20 ML, MVI, ADULT NO.4 WITH VIT K 10 ML, TRACE (CONC-1ML/DOSE IV SCH ×5 (02:05)
[2022-01-14] MEDS: MEROPENEM 1 GM in SODIUM CHLORIDE 0.9% 100 ML IVPB SCH ×3 (02:15→17:16)
[2022-01-14] MEDS: SODIUM CHLORIDE 0.9% 1,000 ML IV SCH (02:17)
[2022-01-14 02:25] LABS: Glucose,Whole Blood 313 mg/dL (75-99)
[2022-01-14] MEDS: INSULIN ASPART (NovoLOG) 100 UNIT/ML VIAL SQ SCH ×4 (02:25→18:35)
[2022-01-14] MEDS: DILTIAZEM 125 MG in SODIUM CHLORIDE 0.9% 100 ML IV SCH (05:00)
[2022-01-14 05:29] LABS: Basophils % (A) 0 %; Eosinophils # (A) 0.1 k/uL (0-0.7); Eosinophils % (A) 1 %; HCT 26.6 % (39.0-53.0); HGB 8.4 gm/dL (13.0-17.5); Hypochromasia Moderate; Lymphocytes # (A) 0.4 k/uL (1.0-4.8); Lymphocytes % (A) 3 %; MCH 31.6 pg (25.0-35.0); MCHC 31.7 g/dL (31.0-37.0); MCV 99.6 fL (80.0-100.0); Macrocytosis Slight; Mean Platelet Volume 9.7; Monocytes # (A) 0.2 k/uL (0-1.0); Monocytes % (A) 2 %; Neutrophils # (A) 10.6 k/uL (1.3-7.7); Neutrophils % (A) 93 %; RBC 2.67 m/uL (4.30-5.90); RDW 15.7 % (11.5-15.5); WBC 11.4 k/uL (3.8-10.6)
[2022-01-14 05:31] LABS: Platelet Count 98 k/uL (150-450)
[2022-01-14 05:37] LABS: INR 0.9 (<1.2); Prothrombin Time 10.1 sec (9.0-12.0)
[2022-01-14 05:40] LABS: Calcium 7.9 mg/dL (8.4-10.2); Magnesium 2.2 mg/dL (1.6-2.3); Phosphorus 3.8 mg/dL (2.5-4.5); Potassium 4.1 mmol/L (3.5-5.1)
[2022-01-14 05:53] LABS: ABG Base Excess 3.1 mmol/L; ABG HCO3 27 mmol/L (21-25); ABG Oxygen Saturation 97.3 % (94-97); ABG PCO2 38 mmHg (35-45); ABG PH 7.46 (7.35-7.45); ABG PO2 96 mmHg (83-108); ABG TCO2 28 mmol/L (19-24); Allen Test Performed? Yes
[2022-01-14 07:07] LABS: Glucose,Whole Blood 314 mg/dL (75-99)
[2022-01-14] MEDS: INSULIN DETEMIR (LEVEMIR) 100 UNIT/ML SYR SQ SCH (07:23)
[2022-01-14] MEDS: IPRATROPIUM-ALBUTEROL 3 ML NEB INHALATION SCH ×4 (07:59→19:29)
--- NOTE | 2022-01-14 08:25 | P.PN ---
Subjective Patient is seen in follow-up for acute kidney injury. Renal function fairly stable. Nonoliguric. Receiving TPN as well as tube feeds. On Levophed. Cardizem drip started last night for A. fib. Intubated. On 40% FiO2. Vital signs are stable. On vasopressor support. HEENT: Intubated. LUNGS: Breath sounds decreased. HEART: Irregular rate and rhythm. ABDOMEN: No distention. EXTREMITITES: No edema. Objective - Vital Signs Vital signs: Vital Signs Temp 100.2 F H 01/14/22 04:00 Pulse 105 H 01/14/22 08:10 Resp 28 H 01/14/22 07:00 BP 86/69 01/14/22 07:00 Pulse Ox 98 01/14/22 07:00 Intake & Output 01/13/22 01/14/22 01/14/22 18:59 06:59 18:59 Intake Total 0344.086 9284.724 190.805 Output Total 2210 1100 Balance -1031.467 315.724 190.805 Weight 98.2 kg Intake: IV 550 950 .9 NS 300 250 Fluconazole in NaCl,Iso- 50 Osm 100 mg In Saline 1 50ml.bag @ 50 mls/hr IVPB DAILY@1600 [facility] Rx#: [id number] Meropenem 1 gm In Sodium 200 100 Chloride 0.9% 100 ml @ 33 .3 mls/hr IVPB Q8HR [facility] Rx#:[id number] Parenteral Electrolytes 600 20 ml Potassium Chloride 20 meq In Amino Acid 4.25 %-D10w 1,000 ml @ 60 mls/ hr IV .BY DURATION [facility] Rx #:[id number] Intake, IV Titration 388.533 115.724 190.805 Amount Magnesium Sulfate-D5w Pmx 200 1 gm In Dextrose/Water 1 100ml.bag @ 100 mls/hr IVPB Q1H [facility] Rx#: [id number] Norepinephrine 32 mg In 88.533 15.724 90.805 Sodium Chloride 0.9% 218 ml @ 0.44 MCG/KG/MIN 18. 954 mls/hr IV .[id number] [facility] Rx#:[id number] propofoL 1,000 mg In 100 100.000 100 Empty Bag 1 bag @ Titrate IV .Q0M [facility] Rx#: [id number] Tube Feeding 240 200 Other 150 Output: Urine 1660 1100 Stool 550 ABP, PAP, CO, CI - Last Documented Arterial Blood Pressure 98/53 - Labs CBC & Chem 7: 01/14/22 04:30 01/14/22 04:30 Labs: Abnormal Lab Results - Last 24 Hours (Table) 01/13/22 01/13/22 01/14/22 Range/Units 12:03 18:05 02:23 WBC (3.8-10.6) k/uL RBC (4.30-5.90) m/uL Hgb (13.0-17.5) gm/dL Hct (39.0-53.0) % RDW (11.5-15.5) % Plt Count (150-450) k/uL Neutrophils # (1.3-7.7) k/uL Lymphocytes # (1.0-4.8) k/uL ABG pH (7.35-7.45) ABG HCO3 (21-25) mmol/L ABG Total CO2 (19-24) mmol/L ABG O2 Saturation (94-97) % Chloride (98-107) mmol/L BUN (9-20) mg/dL Creatinine (0.66-1.25) mg/dL Glucose (74-99) mg/dL POC Glucose (mg/dL) 277 H 225 H 313 H (75-99) mg/dL Calcium (8.4-10.2) mg/dL 01/14/22 01/14/22 01/14/22 Range/Units 04:30 04:30 05:49 WBC 11.4 H (3.8-10.6) k/uL RBC 2.67 L (4.30-5.90) m/uL Hgb 8.4 L (13.0-17.5) gm/dL Hct 26.6 L (39.0-53.0) % RDW 15.7 H (11.5-15.5) % Plt Count 98 L (150-450) k/uL Neutrophils # 10.6 H (1.3-7.7) k/uL Lymphocytes # 0.4 L (1.0-4.8) k/uL ABG pH 7.46 H (7.35-7.45) ABG HCO3 27 H (21-25) mmol/L ABG Total CO2 28 H (19-24) mmol/L ABG O2 Saturation 97.3 H (94-97) % Chloride 109 H (98-107) mmol/L BUN 84 H (9-20) mg/dL Creatinine 2.01 H (0.66-1.25) mg/dL Glucose 299 H (74-99) mg/dL POC Glucose (mg/dL) (75-99) mg/dL Calcium 7.9 L (8.4-10.2) mg/dL 01/14/22 Range/Units 07:06 WBC (3.8-10.6) k/uL RBC (4.30-5.90) m/uL Hgb (13.0-17.5) gm/dL Hct (39.0-53.0) % RDW (11.5-15.5) % Plt Count (150-450) k/uL Neutrophils # (1.3-7.7) k/uL Lymphocytes # (1.0-4.8) k/uL ABG pH (7.35-7.45) ABG HCO3 (21-25) mmol/L ABG Total CO2 (19-24) mmol/L ABG O2 Saturation (94-97) % Chloride (98-107) mmol/L BUN (9-20) mg/dL Creatinine (0.66-1.25) mg/dL Glucose (74-99) mg/dL POC Glucose (mg/dL) 314 H (75-99) mg/dL Calcium (8.4-10.2) mg/dL Microbiology - Last 24 Hours (Table) 01/11/22 16:39 Blood Culture - Preliminary Blood No Growth after 48 hours 01/10/22 11:55 Blood Culture - Final Blood 01/10/22 11:55 Blood Culture Gram Stain - Preliminary Blood Assessment and Plan Plan: Assessment: 1. Acute kidney injury secondary to ATN secondary to septic shock and obstructive uropathy. Renal function stable. Creatinine 2.01 today. Nonoligur ic. 2. Strangulated parastomal hernia status post for a laparotomy with repair of hernia, small bowel resection with ileostomy on 01/06/2022. 3. History of bladder cancer status post cystectomy and ileal loop urostomy. 4. Pseudomonas bacteremia on antibiotics. 5. Metabolic acidosis secondary to acute kidney injury. Status post IV bicarb. Resolved. 6. A. fib with RVR maintained on Cardizem drip. Plan: Receiving tube feeds. Also on TPN. Wean FiO2 and vasopressors. Avoid nephrotoxins. Continue to monitor renal function and urine output.
[2022-01-14] MEDS: PANTOPRAZOLE 40 MG/10 ML VIAL IVP SCH (08:27)
[2022-01-14] MEDS: AMIODARONE 200 MG TAB PO SCH ×2 (08:27→20:54)
[2022-01-14] MEDS: ASPIRIN 81 MG PO SCH (08:27)
[2022-01-14] MEDS: CHLORHEXIDINE GLUCONATE 15 ML CUP MUCOUS MEM SCH ×2 (08:27→20:54)
--- NOTE | 2022-01-14 09:04 | XR ---
EXAMINATION TYPE: XR chest 1V portable DATE OF EXAM: 01/14/2022 COMPARISON: X-ray dated 01/13/2022 HISTORY: Follow-up TECHNIQUE: Single frontal view of the chest is obtained. FINDINGS: Slight interval improvement of the previously seen congested bilateral pulmonary vasculature and prom inent interstitial lung markings yet still appreciated. This could be related to improving pulmonary edema, please correlate clinically. The tip of endotracheal tube is about 5.9 cm proximal to the jerry. Unchanged position of the NG tub e and the right central venous line with the latter tip is seen within the right atrium. Persistent s mall right pleural effusion. Unchanged cardiomediastinal silhouette and bony thoracic cage. IMPRESSION: Apparent slight improvement of the previously seen signs suggestive of pulmonary edema as described jr damon, for follow-up.
--- NOTE | 2022-01-14 09:59 | P.PN ---
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 He also has a history of urostomy that was done at [facility] several years ago and previous bladder cancer. He had presented to the emergency room yesterday with complaints of abdominal painand distention. CAT scan of the abdomen revealed cyst addition for parastomal hernia which is obstructing the patient Werner conduit through the subcutaneous tissues. There is mild bilateral hydronephrosis. Parastomal hernia containing small bowel demonstrated pneumobilia suggesting strangulation small bowel with possible perforation. Subcutaneous gas which may represent superimposed infections secondary to the small bowel strangulation and possible perforation. White count 12.2. Hemoglobin 10.4. Sodium 138. Potassium 4.8. BUN 47. Creatinine 3.17. Glucose 252. Plasma lactic acid 2.2. Troponin 0.013. House virus by PCR not detected. He was taken to the operating room last evening and had undergone an exploratory laparotomy, repair of strangulated parastomal hernia, small bowel resection with ileostomy, repair of incisional hernia. Blood cultures preliminary revealing gram-negative bacilli. Lactic acid up to 4.9 today. The patient had issues with hypotension and tachycardia this morning. We're consulted for ICU management. He was transferred there per medicine. 1 L of fluid resuscitation was given. Current labs revealed WBC 2.6. Hemoglobin 11.2. Sodium 133. Potassium 5.5. Chloride 105. Bicarb 17. BUN 55. Creatinine 3.80. Glucose 305. currently on Zosyn. He is seen today in consultation. He is awake and alert. He is having some surgical site pain but denies any worsening shortness of breath. No cough or congestion. No fever. The patient is seen today 01/08/2022 in follow-up in the intensive care unit. He is currently sitting up in bed. More awake and alert today. His color is better. He did receive 4 L of fluid resuscitation yesterday. He is now requiring norepinephrine currently at 0.26 mcg/kg/m. He has 0.9% normal saline running at 125 ML's per hour. Mean arterial pressure 85 currently. He is tachycardic in the 120s. Sinus. Maintaining O2 saturation the high 90s on 2 L/m per nasal cannula. Chest x-ray continues to show interstitial changes in the lung bases. No pneumothorax. Suspect basilar atelectasis versus pneumonia and possible underlying interstitial lung disease. The patient denied having had COVID-19 infection. Blood culture is positive for pseudomonas aeruginosa. He is currently on Zosyn. White count 2.6. Hemoglobin 9.8. Sodium 138. Potassium 5.7. Bicarb 16. BUN 55. Creatinine 3.65. Glucose 140. Urinalysis with large amount of blood and high WBCs. Cultures pending. Arterial blood gases on 28% FiO2 revealed a PaO2 of 73, pCO2 38 and a pH of 7.22. He remains on DuoNeb inhalations, heparin for DVT prophylaxis, Protonix for GI prophylaxis. He remains nothing by mouth. There is minimal output of the ileostomy. Midline dressing dry and intact. Urostomy with adequate output. Currently in a 3.2 L positive balance Progress note dated 01/13/2022. 72-year-old male, again seen in room 261. The patient was initially admitted back on 01/06, for abdominal pain, and an incarcerated hernia. The patient went to the operating room on 01/06, for exploratory laparotomy and ileostomy. The patient was extubated successfully, but came to the intensive care unit on 01/07/2022, and was intubated on 01/07/2022. The patient remains on the mechanical ventilator. Blood cultures show evidence of Pseudomonas. Currently, he's on meropenem and fluconazole. He will get some Lasix IV push today, as he is quite edematous. Current ventilator settings include the volume assist control mode, rate 20, tidal volume 500, FiO2 40%, and PEEP of 6. Arterial blood gases show pO2 101, pCO2 42, and pH 7.45. The patient remains on norepinephrine at 25 mcg/m, propofol at 35 mcg/kg/m, TPN at 60 mL an hour, tube feedings with Nepro at 20 mL an hour, and saline at 25 mL an hour. Because of the ongoing use of norepinephrine, I asked the nurses to draw a stat TSH and random cortisol. Current laboratory data includes a sodium 143, potassium 3.6, chlorides 112, CO2 27, anion gap 4, BUN 73, and creatinine 2.09. Blood cultures from January 06 and January 07 both show evidence of pseudomonas aeruginosa. Chest x-ray shows diffuse bilateral infiltrates. The patient is seen today 01/14/2022 in follow-up in the intensive care unit. He remains intubated and on mechanical ventilator. Currently on assist control mode at a rate of 20, tidal volume 500, FiO2 40% and a PEEP of 6. Morning blood gases revealed a PaO2 of 96, pCO2 38, pH 7.46. He is still requiring norepinephrine at 24 mcg/kg/m. He is on a Cardizem drip at 5 mg an hour. He is being nourished with TPN at 60 ML's per hour and 0.9 normal saline at a 20 ML's per hour. He is being transitioned to Vital HP. Today's chest x-ray shows slight improvement. There is continued bilateral patchy infiltrates mostly in the lower lobes. Nasogastric tube remains in place. Right central line remains in place. Initial blood cultures were positive for pseudomonas aeruginosa. Subsequent blood cultures are pending. Continued on meropenem and fluconazole. White count 11.4. Hemoglobin 8.4. Platelet count 90,000. Sodium 142. Potassium 4.1. Chloride 109. BUN 84. Creatinine 2.01. Blood glucose 299. Serum cortisol level is 22. He remains on DuoNeb inhalations. Currently in sinus rhythm. Having issues with paroxysmal atrial fibrillation which occurred yesterday during his daily interruption of sedation. Objective - Vital Signs Vital signs: Vital Signs Temp 100.2 F H 01/14/22 04:00 Pulse 105 H 01/14/22 08:10 Resp 28 H 01/14/22 07:00 BP 86/69 01/14/22 07:00 Pulse Ox 98 01/14/22 07:00 Intake & Output 01/13/22 01/14/22 01/14/22 18:59 06:59 18:59 Intake Total 3819.002 9152.724 201.445 Output Total 2210 1100 Balance -1031.467 315.724 201.445 Weight 98.2 kg Intake: IV 550 950 .9 NS 300 250 Fluconazole in NaCl,Iso- 50 Osm 100 mg In Saline 1 50ml.bag @ 50 mls/hr IVPB DAILY@1600 [facility] Rx#: [id number] Meropenem 1 gm In Sodium 200 100 Chloride 0.9% 100 ml @ 33 .3 mls/hr IVPB Q8HR [facility] Rx#:[id number] Parenteral Electrolytes 600 20 ml Potassium Chloride 20 meq In Amino Acid 4.25 %-D10w 1,000 ml @ 60 mls/ hr IV .BY DURATION [facility] Rx #:[id number] Intake, IV Titration 388.533 115.724 201.445 Amount Magnesium Sulfate-D5w Pmx 200 1 gm In Dextrose/Water 1 100ml.bag @ 100 mls/hr IVPB Q1H [facility] Rx#: [id number] Norepinephrine 32 mg In 88.533 15.724 101.445 Sodium Chloride 0.9% 218 ml @ 0.44 MCG/KG/MIN 18. 954 mls/hr IV .[id number] [facility] Rx#:[id number] propofoL 1,000 mg In 100 100.000 100 Empty Bag 1 bag @ Titrate IV .Q0M [facility] Rx#: [id number] Tube Feeding 240 200 Other 150 Output: Urine 1660 1100 Stool 550 ABP, PAP, CO, CI - Last Documented Arterial Blood Pressure 98/53 - Exam GENERAL EXAM: Intubated, sedated 72-year-old gentleman, fairly comfortable in no apparent distress. HEAD: Normocephalic. EYES: Normal reaction of pupils, equal size. NOSE: Clear with pink turbinates. THROAT: Oral endotracheal and gastric tube secured in place. No erythema or exudates. NECK: No masses, no JVD. CHEST: No chest wall deformity. LUNGS: Equal air entry with crackles in the posterior bases. CVS: S1 and S2 normal with no audible murmur, regular rhythm. ABDOMEN: Urostomy on the left, ileostomy on the right, midline dressing dry and intact. SPINE: No scoliosis or deformity SKIN: No rashes CENTRAL NERVOUS SYSTEM: No focal deficits, tone is normal in all 4 extremities. EXTREMITIES: There is no peripheral edema. No clubbing, no cyanosis. Peripheral pulses are intact. - Labs CBC & Chem 7: 01/14/22 04:30 01/14/22 04:30 Labs: Abnormal Lab Results - Last 24 Hours (Table) 01/13/22 01/13/22 01/14/22 Range/Units 12:03 18:05 02:23 WBC (3.8-10.6) k/uL RBC (4.30-5.90) m/uL Hgb (13.0-17.5) gm/dL Hct (39.0-53.0) % RDW (11.5-15.5) % Plt Count (150-450) k/uL Neutrophils # (1.3-7.7) k/uL Lymphocytes # (1.0-4.8) k/uL ABG pH (7.35-7.45) ABG HCO3 (21-25) mmol/L ABG Total CO2 (19-24) mmol/L ABG O2 Saturation (94-97) % Chloride (98-107) mmol/L BUN (9-20) mg/dL Creatinine (0.66-1.25) mg/dL Glucose (74-99) mg/dL POC Glucose (mg/dL) 277 H 225 H 313 H (75-99) mg/dL Calcium (8.4-10.2) mg/dL 01/14/22 01/14/22 01/14/22 Range/Units 04:30 04:30 05:49 WBC 11.4 H (3.8-10.6) k/uL RBC 2.67 L (4.30-5.90) m/uL Hgb 8.4 L (13.0-17.5) gm/dL Hct 26.6 L (39.0-53.0) % RDW 15.7 H (11.5-15.5) % Plt Count 98 L (150-450) k/uL Neutrophils # 10.6 H (1.3-7.7) k/uL Lymphocytes # 0.4 L (1.0-4.8) k/uL ABG pH 7.46 H (7.35-7.45) ABG HCO3 27 H (21-25) mmol/L ABG Total CO2 28 H (19-24) mmol/L ABG O2 Saturation 97.3 H (94-97) % Chloride 109 H (98-107) mmol/L BUN 84 H (9-20) mg/dL Creatinine 2.01 H (0.66-1.25) mg/dL Glucose 299 H (74-99) mg/dL POC Glucose (mg/dL) (75-99) mg/dL Calcium 7.9 L (8.4-10.2) mg/dL 01/14/22 Range/Units 07:06 WBC (3.8-10.6) k/uL RBC (4.30-5.90) m/uL Hgb (13.0-17.5) gm/dL Hct (39.0-53.0) % RDW (11.5-15.5) % Plt Count (150-450) k/uL Neutrophils # (1.3-7.7) k/uL Lymphocytes # (1.0-4.8) k/uL ABG pH (7.35-7.45) ABG HCO3 (21-25) mmol/L ABG Total CO2 (19-24) mmol/L ABG O2 Saturation (94-97) % Chloride (98-107) mmol/L BUN (9-20) mg/dL Creatinine (0.66-1.25) mg/dL Glucose (74-99) mg/dL POC Glucose (mg/dL) 314 H (75-99) mg/dL Calcium (8.4-10.2) mg/dL Microbiology - Last 24 Hours (Table) 01/11/22 16:39 Blood Culture - Preliminary Blood No Growth after 48 hours 01/10/22 11:55 Blood Culture - Final Blood 01/10/22 11:55 Blood Culture Gram Stain - Preliminary Blood Assessment and Plan Assessment: 1 Acute abdominal pain secondary to parastomal hernia containing small bowel demonstrating pneumobilia suggesting strangulation small bowel with possible perforation. Subcutaneous gas which may represent superimposed infection. No organizing fluid collection of the time to suggest abscess. Status post exploratory laparotomy, repair of strangulated parastomal hernia, small bowel resection with ileostomy, repair of incisional hernia performed on 01/06/2022. 2 Sepsis with bacteremia secondary to pseudomonas aeruginosa 3 Hypotension secondary to above, requiring norepinephrine 4 Lactic acidosis, resolved 5 Acute renal failure, current creatinine 2.01 6 Hyperkalemia secondary to above, current potassium 4.1 7 History of bladder cancer with previous urostomy. 8 Diabetes mellitus with subsequent hyperglycemia 9 Hyperlipidemia 10 BPH 11 Visual disorder 12 Coronary artery disease with previous stent placement 13 Chronic tobacco dependence Plan: The patient was seen and evaluated Chest x-ray, ABGs and labs reviewed We'll plan for daily interruption of sedation Continued on meropenem and fluconazole Start hydrocortisone 50 mg IVP every 6 hours Wean down the norepinephrine as tolerated Transition to vital HP for nutritional support Remains on a Cardizem drip. Anticoagulants per cardiology We will continue to follow and make further recommendations based on his clinical status Critical care time 36 minutes I, the cosigning physician, performed a history & physical examination of the patient. Lungs sounds with crackles in the posterior bases. Maintaining good O2 saturations in the 90s on 40% FiO2 and a PEEP of 6 via the mechanical ventilator. I discussed the assessment and plan of care with my nurse prac titioner, Cony Siegel. I attest to the above note as dictated by her.
[2022-01-14] MEDS ORDERED: INSULIN DETEMIR (LEVEMIR) 100 UNIT/ML SYR SQ ONE (11:08)
[2022-01-14] MEDS: HYDROCORTISONE SUCCINATE 100 MG/2 ML VIAL IV SCH ×3 (11:38→18:35)
[2022-01-14 11:39] LABS: Glucose,Whole Blood 257 mg/dL (75-99)
--- NOTE | 2022-01-14 13:39 | P.PN ---
Subjective Progress Note Date: 01/14/22 Xavier Langford is a 72 yo M with PMH of bladder cancer s/p cystectomy and urostomy, CAD, T2DM, who presented to the ED complaining of worsening abdominal pain and distention. CT on presentation showed large parastomal hernia obstructing his ileal conduit and concern for strangulation and possible perforation. Initial WBC 12.2. Hemoglobin 10.4. Sodium 138. Potassium 4.8. BUN 47. Creatinine 3.17. Glucose 252. Plasma lactic acid 2.2, trop negative. Pt underwent exploratory laparotomy, repair of strangulated parastomal hernia, small bowel resection with ileostomy, repair of incisional hernia. Today his labs reflect drop in WBC to 2.6, Potassium 6.1, Cr 3.8. Blood cultures preliminary revealing gram-negative bacilli. 01/08/22 Tachycardic, heart rates in the 120s to 130s, tachypneic.Maintained on Zo syn, blood culture reporting pseudomonas aeruginosa . Urine culture pending. Currently afebrile. Maintaining O2 sats in the high 90s on 2 L nasal cannula.Maintained on IV fluid hydration, and Levophed. Good urine output. Creatinine decreased to 3.65. ABGs reflecting metabolic acidosis, bicarb drip initiated. Complains of abdominal pain, greater on the right. Blood sugars controlled on low-dose Levemir. 01/09/2022 Developed atrial fibrillation with RVR in addition to respiratory distress requiring intubation and antiarrhythmics last night. Currently on FiO2 40%/+8 of PEEP. Maintained on fentanyl, bicarb, diprovan, amiodarone, vasopressin and the Levophed drips. Telemetry currently sinus rhythm .Continues on Zosyn for Pseudomonas bacteremia. Urine cultures negative. Sputum culture pending. Multiple fluid boluses yesterday, chest x-ray this morning reporting possible pneumonia, CHF, interstitial lung disease. Afebrile, T-max 99.4, normal WBC. Hemoglobin 8.8, platelets 135. Creatinine trending down, 3.15,Magnesium 1.6, nephrology following. 01/10/22 Remains vent dependent, FiO2 40%/+8 peep. Chest x-ray reporting stable bilateral infiltrate and pleural effusion, possible CHF superimposed on background of chronic interstitial pulmonary fibrosis and COPD, possible un derlying pneumonia. Telemetry sinus rhythm. 2-D echo completed, results pending .Maintained on bicarb, fentanyl, vasopressin, Levophed, diprovan drips. Hemoglobin 8.6 Creatinine continues to improve down to 2.72. T-max 99.8, WBC 4.5. Continues on Zosyn. 01/13/2010 remains vent dependent, FiO2 40%/+6 of PEEP. Chest x-ray pending. Maintained on diprovan, Levophed drips. T-max 100.1. Pseudomonas bacteremia suspect related to the abdomen. Maintained on meropenem, fluconazole. Preliminary repeat blood cultures currently reporting no growth after 24 hours. BUN 73, creatinine 2.09. Received a dose of Lasix today-generalized edema. Continues on TPN, tube feeds. 01/14/2022 vent dependent, FiO2 40%/+6 of PEEP. Chest x-ray reporting slight improvement. Last night developed atrial fibrillation with RVR, placed on Cardizem drip. Currently on sedation holiday with diprovan temporarily off. Continues to require pressor support with Levophed. Maintained on TPN ,blood sugars elevated. T-max 100.3, WBC 11.4, repeat preliminary blood cultures reporting no growth after 48 hours. Objective - Vital Signs Vital signs: Vital Signs Temp 99.0 F 01/14/22 08:00 Pulse 110 H 01/14/22 09:00 Resp 26 H 01/14/22 09:00 BP 110/71 01/14/22 09:00 Pulse Ox 97 01/14/22 09:00 Intake & Output 01/13/22 01/14/22 01/14/22 18:59 06:59 18:59 Intake Total 0451.336 4077.724 221.445 Output Total 2210 1100 Balance -1031.467 315.724 221.445 Weight 98.2 kg Intake: IV 550 950 .9 NS 300 250 Fluconazole in NaCl,Iso- 50 Osm 100 mg In Saline 1 50ml.bag @ 50 mls/hr IVPB DAILY@1600 [facility] Rx#: [id number] Meropenem 1 gm In Sodium 200 100 Chloride 0.9% 100 ml @ 33 .3 mls/hr IVPB Q8HR [facility] Rx#:[id number] Parenteral Electrolytes 600 20 ml Potassium Chloride 20 meq In Amino Acid 4.25 %-D10w 1,000 ml @ 60 mls/ hr IV .BY DURATION [facility] Rx #:[id number] Intake, IV Titration 388.533 115.724 201.445 Amount Magnesium Sulfate-D5w Pmx 200 1 gm In Dextrose/Water 1 100ml.bag @ 100 mls/hr IVPB Q1H [facility] Rx#: [id number] Norepinephrine 32 mg In 88.533 15.724 101.445 Sodium Chloride 0.9% 218 ml @ 0.44 MCG/KG/MIN 18. 954 mls/hr IV .[id number] [facility] Rx#:[id number] propofoL 1,000 mg In 100 100.000 100 Empty Bag 1 bag @ Titrate IV .Q0M [facility] Rx#: [id number] Tube Feeding 240 200 20 Other 150 Output: Urine 1660 1100 Stool 550 ABP, PAP, CO, CI - Last Documented Arterial Blood Pressure 74/47 - Exam General: Intubated, sedation recently turned off Eyes: PERRL, EOMI, conjunctiva normal HENT: normocephalic, atraumatic Neck: supple, no JVD Lungs: normal respiratory effort, coarse rhonchi, no wheezes. CV: Regular rate and rhythm, no murmur. Peripheral pulses 2+ Abdomen: Distended, softer, ileostomy and urostomy,hypoactive BS. Skin: warm and dry. - Labs CBC & Chem 7: 01/14/22 04:30 01/14/22 04:30 Labs: Abnormal Lab Results - Last 24 Hours (Table) 01/13/22 01/14/22 01/14/22 Range/Units 18:05 02:23 04:30 WBC 11.4 H (3.8-10.6) k/uL RBC 2.67 L (4.30-5.90) m/uL Hgb 8.4 L (13.0-17.5) gm/dL Hct 26.6 L (39.0-53.0) % RDW 15.7 H (11.5-15.5) % Plt Count 98 L (150-450) k/uL Neutrophils # 10.6 H (1.3-7.7) k/uL Lymphocytes # 0.4 L (1.0-4.8) k/uL ABG pH (7.35-7.45) ABG HCO3 (21-25) mmol/L ABG Total CO2 (19-24) mmol/L ABG O2 Saturation (94-97) % Chloride (98-107) mmol/L BUN (9-20) mg/dL Creatinine (0.66-1.25) mg/dL Glucose (74-99) mg/dL POC Glucose (mg/dL) 225 H 313 H (75-99) mg/dL Calcium (8.4-10.2) mg/dL 01/14/22 01/14/22 01/14/22 Range/Units 04:30 05:49 07:06 WBC (3.8-10.6) k/uL RBC (4.30-5.90) m/uL Hgb (13.0-17.5) gm/dL Hct (39.0-53.0) % RDW (11.5-15.5) % Plt Count (150-450) k/uL Neutrophils # (1.3-7.7) k/uL Lymphocytes # (1.0-4.8) k/uL ABG pH 7.46 H (7.35-7.45) ABG HCO3 27 H (21-25) mmol/L ABG Total CO2 28 H (19-24) mmol/L ABG O2 Saturation 97.3 H (94-97) % Chloride 109 H (98-107) mmol/L BUN 84 H (9-20) mg/dL Creatinine 2.01 H (0.66-1.25) mg/dL Glucose 299 H (74-99) mg/dL POC Glucose (mg/dL) 314 H (75-99) mg/dL Calcium 7.9 L (8.4-10.2) mg/dL 01/14/22 Range/Units 11:37 WBC (3.8-10.6) k/uL RBC (4.30-5.90) m/uL Hgb (13.0-17.5) gm/dL Hct (39.0-53.0) % RDW (11.5-15.5) % Plt Count (150-450) k/uL Neutrophils # (1.3-7.7) k/uL Lymphocytes # (1.0-4.8) k/uL ABG pH (7.35-7.45) ABG HCO3 (21-25) mmol/L ABG Total CO2 (19-24) mmol/L ABG O2 Saturation (94-97) % Chloride (98-107) mmol/L BUN (9-20) mg/dL Creatinine (0.66-1.25) mg/dL Glucose (74-99) mg/dL POC Glucose (mg/dL) 257 H (75-99) mg/dL Calcium (8.4-10.2) mg/dL Microbiology - Last 24 Hours (Table) 01/10/22 11:55 Blood Culture Gram Stain - Final Blood Blood Culture - Final Proprionibacterium species 01/11/22 16:39 Blood Culture - Preliminary Blood No Growth after 48 hours 01/10/22 11:55 Blood Culture - Final Blood Assessment and Plan Assessment: Septic shock secondary to Pseudomonas bacteremia, etiology unclear, suspect abdomen Acute hypoxic respiratory failure secondary to the above. Hypotension, secondary to septic shock, pressor dependent Acute renal failure secondary to septic shock, hypotension Atrial fibrillation with RVR, new onset-suspect related to septic shock and bacteremia, currently sinus rhythm Thrombocytopenia, HIT W/U in progress Hyperkalemia secondary to the above Labs acidosis secondary to septic shock with bacteremia Metabolic acidosis secondary to acute renal failure, currently on bicarb drip Incarcerated hernia status post colostomy creation Diabetes mellitus type 2 History of bladder cancer with previous urostomy Plan: Continue on current medication regime ,monitoring and symptomatic treatment. Antibiotics as per ID. ICU management as per adjunct professor. Prognosis guarded given multiple complex medical issues. The impression and plan of care has been dictated as directed. : I performed a history and examination of this patient, discussed the same with the dictator. I agree with the dictator's note ,documented as a scribe. Any additional findings or plans will be noted.
[2022-01-14] MEDS: FLUCONAZOLE IN NACL,ISO-OSM 100 MG in SALINE 1 50ML.BAG IVPB SCH (15:05)
--- NOTE | 2022-01-14 15:29 | P.PN ---
Subjective Progress Note Date: 01/14/22 CHIEF COMPLAINT: Strangulated parastomal hernia HISTORY OF PRESENT ILLNESS: Patient is status post Exploratory laparotomy, Repair of strangulated parastomal hernia, Small bowel resection with ileostomy and Repair of incisional hernia. POD #8. Patient is intubated and on mechanical ventilation. On he is on TPN as well as tube feeds at 20 mL per hour. He did receive a dose of IV Lasix for edema. He is also still requiring norepinephrine. Patient has had low-grade fevers as high as 100.3. WBC 11.4 hemoglobin 8.4 platelets 98 sodium 142 potassium 4.1 creatinine 2.01 Patient seen and examined with Dr. allen PHYSICAL EXAM: VITAL SIGNS: Reviewed. GENERAL: Well-developed in no acute distress. HEENT: No sclera icterus. Extraocular movements grossly intact. Moist buccal mucosa. Head is atraumatic, normocephalic. ABDOMEN: Soft. Nondistended. Abdominal incision site clean dry and intact. 2 areas are open with gauze placed. Ileostomy liquidy brown stool. Urostomy stoma continues become less dusky and more pink B day. Urine is clear NEUROLOGIC: Alert and oriented. Cranial nerves II through XII grossly intact. ASSESSMENT: 1. Strangulated parastomal hernia and incisional hernia status post Exploratory laparotomy, Repair of strangulated parastomal hernia, Small bowel resection with ileostomy and Repair of incisional hernia 2. Abdominal incision infection 3. History of bladder cancer with urostomy 4. Acute kidney injury 5. Sepsis and septic shock 6. Bacteremia with Pseudomonas 7. New onset of A. fib PLAN: -Dietitian consulted to Discontinue TPN and titrate tube feedings to goal -Continue local wound care -Continue ICU management -Continue supportive care -Continue antibiotics per ID -DVT prophylaxis subcu heparin and GI prophylaxis Protonix Physician Change Management Consultant note has been reviewed by physician. Signing provider agrees with the documented findings, assessment, and plan of care. Objective - Vital Signs Vital signs: Vital Signs Temp 99.0 F 01/14/22 08:00 Pulse 110 H 01/14/22 09:00 Resp 26 H 01/14/22 09:00 BP 110/71 01/14/22 09:00 Pulse Ox 97 01/14/22 09:00 Intake & Output 01/13/22 01/14/22 01/14/22 18:59 06:59 18:59 Intake Total 7777.361 8844.724 290.199 Output Total 2210 1100 Balance -1031.467 315.724 290.199 Weight 98.2 kg 98.2 kg Intake: IV 550 950 .9 NS 300 250 Fluconazole in NaCl,Iso- 50 Osm 100 mg In Saline 1 50ml.bag @ 50 mls/hr IVPB DAILY@1600 [facility] Rx#: [id number] Meropenem 1 gm In Sodium 200 100 Chloride 0.9% 100 ml @ 33 .3 mls/hr IVPB Q8HR [facility] Rx#:[id number] Parenteral Electrolytes 600 20 ml Potassium Chloride 20 meq In Amino Acid 4.25 %-D10w 1,000 ml @ 60 mls/ hr IV .BY DURATION [facility] Rx #:[id number] Intake, IV Titration 388.533 115.724 270.199 Amount Magnesium Sulfate-D5w Pmx 200 1 gm In Dextrose/Water 1 100ml.bag @ 100 mls/hr IVPB Q1H [facility] Rx#: [id number] Norepinephrine 32 mg In 88.533 15.724 170.199 Sodium Chloride 0.9% 218 ml @ 0.44 MCG/KG/MIN 18. 954 mls/hr IV .[id number] [facility] Rx#:[id number] propofoL 1,000 mg In 100 100.000 100 Empty Bag 1 bag @ Titrate IV .Q0M [facility] Rx#: [id number] Tube Feeding 240 200 20 Other 150 Output: Urine 1660 1100 Stool 550 ABP, PAP, CO, CI - Last Documented Arterial Blood Pressure 74/47 - Labs CBC & Chem 7: 01/14/22 04:30 01/14/22 04:30 Labs: Abnormal Lab Results - Last 24 Hours (Table) 01/13/22 01/14/22 01/14/22 Range/Units 18:05 02:23 04:30 WBC 11.4 H (3.8-10.6) k/uL RBC 2.67 L (4.30-5.90) m/uL Hgb 8.4 L (13.0-17.5) gm/dL Hct 26.6 L (39.0-53.0) % RDW 15.7 H (11.5-15.5) % Plt Count 98 L (150-450) k/uL Neutrophils # 10.6 H (1.3-7.7) k/uL Lymphocytes # 0.4 L (1.0-4.8) k/uL ABG pH (7.35-7.45) ABG HCO3 (21-25) mmol/L ABG Total CO2 (19-24) mmol/L ABG O2 Saturation (94-97) % Chloride (98-107) mmol/L BUN (9-20) mg/dL Creatinine (0.66-1.25) mg/dL Glucose (74-99) mg/dL POC Glucose (mg/dL) 225 H 313 H (75-99) mg/dL Calcium (8.4-10.2) mg/dL 01/14/22 01/14/22 01/14/22 Range/Units 04:30 05:49 07:06 WBC (3.8-10.6) k/uL RBC (4.30-5.90) m/uL Hgb (13.0-17.5) gm/dL Hct (39.0-53.0) % RDW (11.5-15.5) % Plt Count (150-450) k/uL Neutrophils # (1.3-7.7) k/uL Lymphocytes # (1.0-4.8) k/uL ABG pH 7.46 H (7.35-7.45) ABG HCO3 27 H (21-25) mmol/L ABG Total CO2 28 H (19-24) mmol/L ABG O2 Saturation 97.3 H (94-97) % Chloride 109 H (98-107) mmol/L BUN 84 H (9-20) mg/dL Creatinine 2.01 H (0.66-1.25) mg/dL Glucose 299 H (74-99) mg/dL POC Glucose (mg/dL) 314 H (75-99) mg/dL Calcium 7.9 L (8.4-10.2) mg/dL 01/14/22 Range/Units 11:37 WBC (3.8-10.6) k/uL RBC (4.30-5.90) m/uL Hgb (13.0-17.5) gm/dL Hct (39.0-53.0) % RDW (11.5-15.5) % Plt Count (150-450) k/uL Neutrophils # (1.3-7.7) k/uL Lymphocytes # (1.0-4.8) k/uL ABG pH (7.35-7.45) ABG HCO3 (21-25) mmol/L ABG Total CO2 (19-24) mmol/L ABG O2 Saturation (94-97) % Chloride (98-107) mmol/L BUN (9-20) mg/dL Creatinine (0.66-1.25) mg/dL Glucose (74-99) mg/dL POC Glucose (mg/dL) 257 H (75-99) mg/dL Calcium (8.4-10.2) mg/dL Microbiology - Last 24 Hours (Table) 01/10/22 11:55 Blood Culture Gram Stain - Final Blood Blood Culture - Final Proprionibacterium species 01/11/22 16:39 Blood Culture - Preliminary Blood No Growth after 48 hours 01/10/22 11:55 Blood Culture - Final Blood
--- NOTE | 2022-01-14 17:40 | P.PN ---
Subjective Progress Note Date: 01/14/22 This is a 72-year-old gentleman with history of coronary artery disease with previous PCI, diabetes mellitus, hypertension and hyperlipidemia and also history of bladder cancer with urostomy. Patient is status post surgery for perforated viscus. Patient is also intubated. His echocardiogram showed an ej ection fraction about 35-40% with global hypokinesia without any significant valvular abnormalities. Patient had an episode of A. fib but converted back to sinus rhythm. In the rhythm appears to be mostly is a sinus rhythm with APCs are multifocal atrial rhythm at this time. 01/14/2022: This patient is status post surgery for possible perforated viscus. Patient also has sepsis. We're following patient because of intermittent atrial fibrillation. Patient is currently on IV Cardizem 5 mg daily is maintaining sinus rhythm. His her multiple medications including antibiotics. Still on mechanical ventilator. His echo Cardigan showed ejection fraction 35-40%. We'll continue current management. We'll follow Objective - Vital Signs Vital signs: Vital Signs Temp 98.8 F 01/14/22 12:00 Pulse 87 01/14/22 17:00 Resp 20 01/14/22 17:00 BP 130/75 01/14/22 17:00 Pulse Ox 99 01/14/22 17:00 Intake & Output 01/13/22 01/14/22 01/14/22 18:59 06:59 18:59 Intake Total 1862.271 7946.724 1082.403 Output Total 2210 1100 700 Balance -1031.467 315.724 382.403 Weight 98.2 kg 98.2 kg Intake: IV 550 950 500 .9 NS 300 250 250 Fluconazole in NaCl,Iso- 50 50 Osm 100 mg In Saline 1 50ml.bag @ 50 mls/hr IVPB DAILY@1600 [facility] Rx#: [id number] Meropenem 1 gm In Sodium 200 100 200 Chloride 0.9% 100 ml @ 33 .3 mls/hr IVPB Q8HR [facility] Rx#:[id number] Parenteral Electrolytes 600 20 ml Potassium Chloride 20 meq In Amino Acid 4.25 %-D10w 1,000 ml @ 60 mls/ hr IV .BY DURATION [facility] Rx #:[id number] Intake, IV Titration 388.533 115.724 331.403 Amount Magnesium Sulfate-D5w Pmx 200 1 gm In Dextrose/Water 1 100ml.bag @ 100 mls/hr IVPB Q1H [facility] Rx#: [id number] Norepinephrine 32 mg In 88.533 15.724 190.159 Sodium Chloride 0.9% 218 ml @ 0.44 MCG/KG/MIN 18. 954 mls/hr IV .[id number] [facility] Rx#:[id number] propofoL 1,000 mg In 100 100.000 141.244 Empty Bag 1 bag @ Titrate IV .Q0M [facility] Rx#: [id number] Tube Feeding 240 200 251 Other 150 Output: Urine 1660 1100 700 Stool 550 ABP, PAP, CO, CI - Last Documented Arterial Blood Pressure 88/47 - Exam GENERAL EXAM: Patient is intubated and sedated HEENT: Normocephalic. Normal reaction of pupils, equal size, normal range of extraocular motion. No erythema or exudates in the throat. NECK: No masses, no nuchal rigidity. CHEST: No chest wall deformity. LUNGS: Diminished air exchange HEART: S1 and S2 normal . Distant heart sounds ABDOMEN: No hepatosplenomegaly, normal bowel sounds, no guarding or rigidity. SKIN: No rashes CENTRAL NERVOUS SYSTEM: Deferred EXTREMITIES: No cyanosis, clubbing or edema. - Labs CBC & Chem 7: 01/14/22 04:30 01/14/22 04:30 Labs: Abnormal Lab Results - Last 24 Hours (Table) 01/13/22 01/14/22 01/14/22 Range/Units 18:05 02:23 04:30 WBC 11.4 H (3.8-10.6) k/uL RBC 2.67 L (4.30-5.90) m/uL Hgb 8.4 L (13.0-17.5) gm/dL Hct 26.6 L (39.0-53.0) % RDW 15.7 H (11.5-15.5) % Plt Count 98 L (150-450) k/uL Neutrophils # 10.6 H (1.3-7.7) k/uL Lymphocytes # 0.4 L (1.0-4.8) k/uL ABG pH (7.35-7.45) ABG HCO3 (21-25) mmol/L ABG Total CO2 (19-24) mmol/L ABG O2 Saturation (94-97) % Chloride (98-107) mmol/L BUN (9-20) mg/dL Creatinine (0.66-1.25) mg/dL Glucose (74-99) mg/dL POC Glucose (mg/dL) 225 H 313 H (75-99) mg/dL Calcium (8.4-10.2) mg/dL 01/14/22 01/14/22 01/14/22 Range/Units 04:30 05:49 07:06 WBC (3.8-10.6) k/uL RBC (4.30-5.90) m/uL Hgb (13.0-17.5) gm/dL Hct (39.0-53.0) % RDW (11.5-15.5) % Plt Count (150-450) k/uL Neutrophils # (1.3-7.7) k/uL Lymphocytes # (1.0-4.8) k/uL ABG pH 7.46 H (7.35-7.45) ABG HCO3 27 H (21-25) mmol/L ABG Total CO2 28 H (19-24) mmol/L ABG O2 Saturation 97.3 H (94-97) % Chloride 109 H (98-107) mmol/L BUN 84 H (9-20) mg/dL Creatinine 2.01 H (0.66-1.25) mg/dL Glucose 299 H (74-99) mg/dL POC Glucose (mg/dL) 314 H (75-99) mg/dL Calcium 7.9 L (8.4-10.2) mg/dL 01/14/22 Range/Units 11:37 WBC (3.8-10.6) k/uL RBC (4.30-5.90) m/uL Hgb (13.0-17.5) gm/dL Hct (39.0-53.0) % RDW (11.5-15.5) % Plt Count (150-450) k/uL Neutrophils # (1.3-7.7) k/uL Lymphocytes # (1.0-4.8) k/uL ABG pH (7.35-7.45) ABG HCO3 (21-25) mmol/L ABG Total CO2 (19-24) mmol/L ABG O2 Saturation (94-97) % Chloride (98-107) mmol/L BUN (9-20) mg/dL Creatinine (0.66-1.25) mg/dL Glucose (74-99) mg/dL POC Glucose (mg/dL) 257 H (75-99) mg/dL Calcium (8.4-10.2) mg/dL Microbiology - Last 24 Hours (Table) 01/10/22 11:55 Blood Culture Gram Stain - Final Blood Blood Culture - Final Proprionibacterium species 01/11/22 16:39 Blood Culture - Preliminary Blood No Growth after 48 hours 01/10/22 11:55 Blood Culture - Final Blood Assessment and Plan (1) Atrial fibrillation Current Visit: Yes Status: Acute Code(s): I48.91 - UNSPECIFIED ATRIAL FIBRILLATION SNOMED Code(s): 96750718 (2) Bowel perforation Current Visit: Yes Status: Acute Code(s): K63.1 - PERFORATION OF INTESTINE (NONTRAUMATIC) SNOMED Code(s): 62685308 (3) Chronic renal failure Current Visit: Yes Status: Acute Code(s): N18.9 - CHRONIC KIDNEY DISEASE, UNSPECIFIED SNOMED Code(s): 41162069 (4) Strangulated hernia of abdominal wall Current Visit: Yes Status: Acute Code(s): K43.6 - OTHER AND UNSP VENTRAL HERNIA WITH OBSTRUCTION, W/O GANGRENE SNOMED Code(s): 71860070 Plan: On IV Cardizem 5 mg. Maintaining sinus rhythm. On the respirator support and antibiotics. Continue current management. We will follow
[2022-01-14 17:48] LABS: Glucose,Whole Blood 487 mg/dL (75-99)
[2022-01-14] MEDS ORDERED: INSULIN DETEMIR (LEVEMIR) 100 UNIT/ML SYR SQ SCH (21:00)
[2022-01-15] MEDS: HYDROCORTISONE SUCCINATE 100 MG/2 ML VIAL IV SCH ×4 (00:30→17:48)
[2022-01-15 02:41] LABS: Glucose,Whole Blood 162 mg/dL (75-99)
[2022-01-15] MEDS: DILTIAZEM 125 MG in SODIUM CHLORIDE 0.9% 100 ML IV SCH (03:00)
[2022-01-15] MEDS: INSULIN ASPART (NovoLOG) 100 UNIT/ML VIAL SQ SCH ×4 (03:16→17:48)
[2022-01-15] MEDS: MEROPENEM 1 GM in SODIUM CHLORIDE 0.9% 100 ML IVPB SCH ×3 (03:21→17:36)
[2022-01-15] MEDS: SODIUM CHLORIDE 0.9% 1,000 ML IV SCH (03:42)
[2022-01-15 05:30] LABS: ABG Base Excess 2.1 mmol/L; ABG HCO3 26 mmol/L (21-25); ABG Oxygen Saturation 97.7 % (94-97); ABG PCO2 40 mmHg (35-45); ABG PH 7.43 (7.35-7.45); ABG PO2 100 mmHg (83-108); ABG TCO2 28 mmol/L (19-24)
[2022-01-15 05:32] LABS: Allen Test Performed? no
[2022-01-15 05:50] LABS: Anisocytosis Slight; Basophils % (A) 0 %; Eosinophils % (A) 0 %; HCT 25.6 % (39.0-53.0); HGB 7.8 gm/dL (13.0-17.5); Hypochromasia Moderate; Lymphocytes # (A) 0.3 k/uL (1.0-4.8); Lymphocytes % (A) 3 %; MCH 30.3 pg (25.0-35.0); MCHC 30.6 g/dL (31.0-37.0); MCV 98.9 fL (80.0-100.0); Macrocytosis Slight; Mean Platelet Volume 10.3; Monocytes # (A) 0.2 k/uL (0-1.0); Monocytes % (A) 3 %; Neutrophils % (A) 93 %; Platelet Count 124 k/uL (150-450); RBC 2.58 m/uL (4.30-5.90); RDW 16.2 % (11.5-15.5); WBC 9.7 k/uL (3.8-10.6)
[2022-01-15 05:51] LABS: Calcium 8.1 mg/dL (8.4-10.2); Phosphorus 5.3 mg/dL (2.5-4.5); Potassium 4.6 mmol/L (3.5-5.1)
[2022-01-15 05:55] LABS: Glucose,Whole Blood 259 mg/dL (75-99)
[2022-01-15] MEDS ORDERED: INSULIN DETEMIR (LEVEMIR) 100 UNIT/ML SYR SQ SCH (07:00)
[2022-01-15] MEDS ORDERED: FUROSEMIDE 10 MG/ML 4 ML VIAL IV STA (07:59)
[2022-01-15] MEDS: IPRATROPIUM-ALBUTEROL 3 ML NEB INHALATION SCH ×4 (08:01→19:59)
--- NOTE | 2022-01-15 09:16 | P.PN ---
Subjective Patient is seen in follow-up for acute kidney injury. Renal function fairly stable. Nonoliguric. Receiving tube feeds. On Levophed. Cardizem drip started last night for A. fib. Intubated. On 40% FiO2. Vital signs are stable. On vasopressor support. HEENT: Intubated. LUNGS: Breath sounds decreased. HEART: Irregular rate and rhythm. ABDOMEN: No distention. EXTREMITITES: Trace edema in lower extremities. 2+ edema in the upper extremities. Objective - Vital Signs Vital signs: Vital Signs Temp 99.1 F 01/15/22 04:00 Pulse 77 01/15/22 08:19 Resp 24 01/15/22 07:00 BP 108/56 01/15/22 07:00 Pulse Ox 98 01/15/22 07:00 Intake & Output 01/14/22 01/15/22 01/15/22 18:59 06:59 18:59 Intake Total 3205.583 4325.224 64 Output Total 900 1150 75 Balance 294.403 27.224 -11 Weight 98.2 kg Intake: IV 550 463.0 33 .9 NS 300 275 25 Cardizem 55 5 Fluconazole in NaCl,Iso- 50 Osm 100 mg In Saline 1 50ml.bag @ 50 mls/hr IVPB DAILY@1600 [facility] Rx#: [id number] Meropenem 1 gm In Sodium 200 100.0 Chloride 0.9% 100 ml @ 33 .3 mls/hr IVPB Q8HR [facility] Rx#:[id number] Pressure bag 33 3 Intake, IV Titration 331.403 263.224 Amount Diltiazem 125 mg In 110 Sodium Chloride 0.9% 100 ml @ 5 MG/HR 5 mls/hr IV .Q24H [facility] Rx#:[id number] Norepinephrine 32 mg In 190.159 12.406 Sodium Chloride 0.9% 218 ml @ 0.44 MCG/KG/MIN 18. 954 mls/hr IV .[id number] [facility] Rx#:[id number] propofoL 1,000 mg In 141.244 140.818 Empty Bag 1 bag @ Titrate IV .Q0M [facility] Rx#: [id number] Tube Feeding 313 361 31 Other 90 Output: Urine 850 1150 75 Stool 50 ABP, PAP, CO, CI - Last Documented Arterial Blood Pressure 112/46 - Labs CBC & Chem 7: 01/15/22 04:50 01/15/22 04:50 Labs: Abnormal Lab Results - Last 24 Hours (Table) 01/14/22 01/14/22 01/15/22 Range/Units 11:37 17:46 00:25 RBC (4.30-5.90) m/uL Hgb (13.0-17.5) gm/dL Hct (39.0-53.0) % MCHC (31.0-37.0) g/dL RDW (11.5-15.5) % Plt Count (150-450) k/uL Neutrophils # (1.3-7.7) k/uL Lymphocytes # (1.0-4.8) k/uL ABG HCO3 (21-25) mmol/L ABG Total CO2 (19-24) mmol/L ABG O2 Saturation (94-97) % Chloride (98-107) mmol/L BUN (9-20) mg/dL Creatinine (0.66-1.25) mg/dL Glucose (74-99) mg/dL POC Glucose (mg/dL) 257 H 487 H 162 H (75-99) mg/dL Calcium (8.4-10.2) mg/dL Phosphorus (2.5-4.5) mg/dL 01/15/22 01/15/22 01/15/22 Range/Units 04:50 04:50 05:28 RBC 2.58 L (4.30-5.90) m/uL Hgb 7.8 L (13.0-17.5) gm/dL Hct 25.6 L (39.0-53.0) % MCHC 30.6 L (31.0-37.0) g/dL RDW 16.2 H (11.5-15.5) % Plt Count 124 L (150-450) k/uL Neutrophils # 9.0 H (1.3-7.7) k/uL Lymphocytes # 0.3 L (1.0-4.8) k/uL ABG HCO3 26 H (21-25) mmol/L ABG Total CO2 28 H (19-24) mmol/L ABG O2 Saturation 97.7 H (94-97) % Chloride 112 H (98-107) mmol/L BUN 98 H (9-20) mg/dL Creatinine 2.10 H (0.66-1.25) mg/dL Glucose 230 H (74-99) mg/dL POC Glucose (mg/dL) (75-99) mg/dL Calcium 8.1 L (8.4-10.2) mg/dL Phosphorus 5.3 H (2.5-4.5) mg/dL 01/15/22 Range/Units 05:54 RBC (4.30-5.90) m/uL Hgb (13.0-17.5) gm/dL Hct (39.0-53.0) % MCHC (31.0-37.0) g/dL RDW (11.5-15.5) % Plt Count (150-450) k/uL Neutrophils # (1.3-7.7) k/uL Lymphocytes # (1.0-4.8) k/uL ABG HCO3 (21-25) mmol/L ABG Total CO2 (19-24) mmol/L ABG O2 Saturation (94-97) % Chloride (98-107) mmol/L BUN (9-20) mg/dL Creatinine (0.66-1.25) mg/dL Glucose (74-99) mg/dL POC Glucose (mg/dL) 259 H (75-99) mg/dL Calcium (8.4-10.2) mg/dL Phosphorus (2.5-4.5) mg/dL Microbiology - Last 24 Hours (Table) 01/11/22 16:39 Blood Culture - Preliminary Blood No Growth after 72 hours 01/10/22 11:55 Blood Culture Gram Stain - Final Blood Blood Culture - Final Proprionibacterium species Assessment and Plan Plan: Assessment: 1. Acute kidney injury secondary to ATN secondary to septic shock and obstructive uropathy. Renal function stable. Creatinine 2.1 today. Nonoliguric. 2. Strangulated parastomal hernia status post for a laparotomy with repair of hernia, small bowel resection with ileostomy on 01/06/2022. 3. History of bladder cancer status post cystectomy and ileal loop urostomy. 4. Pseudomonas bacteremia on antibiotics. 5. Metabolic acidosis secondary to acute kidney injury. Status post IV bicarb. Resolved. 6. A. fib with RVR maintained on Cardizem drip. 7. Mild hypernatremia from lack of oral water intake. 8. Volume overload. Plan: Receiving tube feeds. Add free water flushes 200 mL every 4 hours. Lasix 40 mg IV once today. Wean FiO2 and vasopressors. Avoid nephrotoxins. Continue to monitor renal function and urine output.
[2022-01-15] MEDS: NOREPINEPHRINE 32 MG in SODIUM CHLORIDE 0.9% 218 ML IV SCH ×3 (09:34→23:12)
[2022-01-15] MEDS: PANTOPRAZOLE 40 MG/10 ML VIAL IVP SCH (09:39)
[2022-01-15] MEDS: CHLORHEXIDINE GLUCONATE 15 ML CUP MUCOUS MEM SCH ×2 (09:39→21:36)
[2022-01-15] MEDS: ASPIRIN 81 MG PO SCH (09:39)
[2022-01-15] MEDS: AMIODARONE 200 MG TAB PO SCH ×2 (09:39→21:36)
--- NOTE | 2022-01-15 09:51 | P.PN ---
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 He also has a history of urostomy that was done at [facility] several years ago and previous bladder cancer. He had presented to the emergency room yesterday with complaints of abdominal painand distention. CAT scan of the abdomen revealed cyst addition for parastomal hernia which is obstructing the patient Werner conduit through the subcutaneous tissues. There is mild bilateral hydronephrosis. Parastomal hernia containing small bowel demonstrated pneumobilia suggesting strangulation small bowel with possible perforation. Subcutaneous gas which may represent superimposed infections secondary to the small bowel strangulation and possible perforation. White count 12.2. Hemoglobin 10.4. Sodium 138. Potassium 4.8. BUN 47. Creatinine 3.17. Glucose 252. Plasma lactic acid 2.2. Troponin 0.013. House virus by PCR not detected. He was taken to the operating room last evening and had undergone an exploratory laparotomy, repair of strangulated parastomal hernia, small bowel resection with ileostomy, repair of incisional hernia. Blood cultures preliminary revealing gram-negative bacilli. Lactic acid up to 4.9 today. The patient had issues with hypotension and tachycardia this morning. We're consulted for ICU management. He was transferred there per medicine. 1 L of fluid resuscitation was given. Current labs revealed WBC 2.6. Hemoglobin 11.2. Sodium 133. Potassium 5.5. Chloride 105. Bicarb 17. BUN 55. Creatinine 3.80. Glucose 305. currently on Zosyn. He is seen today in consultation. He is awake and alert. He is having some surgical site pain but denies any worsening shortness of breath. No cough or congestion. No fever. The patient is seen today 01/08/2022 in follow-up in the intensive care unit. He is currently sitting up in bed. More awake and alert today. His color is better. He did receive 4 L of fluid resuscitation yesterday. He is now requiring norepinephrine currently at 0.26 mcg/kg/m. He has 0.9% normal saline running at 125 ML's per hour. Mean arterial pressure 85 currently. He is tachycardic in the 120s. Sinus. Maintaining O2 saturation the high 90s on 2 L/m per nasal cannula. Chest x-ray continues to show interstitial changes in the lung bases. No pneumothorax. Suspect basilar atelectasis versus pneumonia and possible underlying interstitial lung disease. The patient denied having had COVID-19 infection. Blood culture is positive for pseudomonas aeruginosa. He is currently on Zosyn. White count 2.6. Hemoglobin 9.8. Sodium 138. Potassium 5.7. Bicarb 16. BUN 55. Creatinine 3.65. Glucose 140. Urinalysis with large amount of blood and high WBCs. Cultures pending. Arterial blood gases on 28% FiO2 revealed a PaO2 of 73, pCO2 38 and a pH of 7.22. He remains on DuoNeb inhalations, heparin for DVT prophylaxis, Protonix for GI prophylaxis. He remains nothing by mouth. There is minimal output of the ileostomy. Midline dressing dry and intact. Urostomy with adequate output. Currently in a 3.2 L positive balance Progress note dated 01/13/2022. 72-year-old male, again seen in room 261. The patient was initially admitted back on 01/06, for abdominal pain, and an incarcerated hernia. The patient went to the operating room on 01/06, for exploratory laparotomy and ileostomy. The patient was extubated successfully, but came to the intensive care unit on 01/07/2022, and was intubated on 01/07/2022. The patient remains on the mechanical ventilator. Blood cultures show evidence of Pseudomonas. Currently, he's on meropenem and fluconazole. He will get some Lasix IV push today, as he is quite edematous. Current ventilator settings include the volume assist control mode, rate 20, tidal volume 500, FiO2 40%, and PEEP of 6. Arterial blood gases show pO2 101, pCO2 42, and pH 7.45. The patient remains on norepinephrine at 25 mcg/m, propofol at 35 mcg/kg/m, TPN at 60 mL an hour, tube feedings with Nepro at 20 mL an hour, and saline at 25 mL an hour. Because of the ongoing use of norepinephrine, I asked the nurses to draw a stat TSH and random cortisol. Current laboratory data includes a sodium 143, potassium 3.6, chlorides 112, CO2 27, anion gap 4, BUN 73, and creatinine 2.09. Blood cultures from January 06 and January 07 both show evidence of pseudomonas aeruginosa. Chest x-ray shows diffuse bilateral infiltrates. The patient is seen today 01/14/2022 in follow-up in the intensive care unit. He remains intubated and on mechanical ventilator. Currently on assist control mode at a rate of 20, tidal volume 500, FiO2 40% and a PEEP of 6. Morning blood gases revealed a PaO2 of 96, pCO2 38, pH 7.46. He is still requiring norepinephrine at 24 mcg/kg/m. He is on a Cardizem drip at 5 mg an hour. He is being nourished with TPN at 60 ML's per hour and 0.9 normal saline at a 20 ML's per hour. He is being transitioned to Vital HP. Today's chest x-ray shows slight improvement. There is continued bilateral patchy infiltrates mostly in the lower lobes. Nasogastric tube remains in place. Right central line remains in place. Initial blood cultures were positive for pseudomonas aeruginosa. Subsequent blood cultures are pending. Continued on meropenem and fluconazole. White count 11.4. Hemoglobin 8.4. Platelet count 90,000. Sodium 142. Potassium 4.1. Chloride 109. BUN 84. Creatinine 2.01. Blood glucose 299. Serum cortisol level is 22. He remains on DuoNeb inhalations. Currently in sinus rhythm. Having issues with paroxysmal atrial fibrillation which occurred yesterday during his daily interruption of sedation. The patient is seen today 01/15/2022 in follow-up in the intensive care unit. He remains intubated on the mechanical ventilator. Current settings are assist-control mode at a rate of 20, tidal volume 500, FiO2 40% and a PEEP of 6. Morning blood gases revealed a PaO2 of 100, pCO2 40, pH 7.43. He is still requiring norepinephrine at 0.16 mcg/kg/m. He's on Cardizem drip at 5 mg per hour. Sedated with propofol at 25 mcg/mg/m. He is being nourished with vital HP at 31 ML's per hour which is goal. His ostomies are functioning. He is on antibiotics in the form of meropenem and fluconazole. He did fail weaning trials yesterday. He develops atrial fibrillation with rapid ventricular response and increased respiratory rate. He is currently in sinus rhythm. He was given Lasix 80 mg IVP 1 this morning per nephrology. Free water flushes were increased as well. Blood cultures were positive for Proprionibacterium species. Previous cultures positive for pseudomonas aeruginosa. Sputum culture positive for Vesta. White count 9.7. Hemoglobin 7.8. Platelets 124,000. Sodium 144. Potassium 4.6. BUN 98. Creatinine 2.10. Glucose 230. He is currently in a -715 ML balance. He remains on Solu-Cortef, bronchodilators, amiodarone. Blood glucose controlled with Levemir. Objective - Vital Signs Vital signs: Vital Signs Temp 99.1 F 01/15/22 04:00 Pulse 77 01/15/22 09:00 Resp 27 H 01/15/22 09:00 BP 114/62 01/15/22 09:00 Pulse Ox 98 01/15/22 09:00 Intake & Output 01/14/22 01/15/22 01/15/22 18:59 06:59 18:59 Intake Total 2719.280 7172.224 64 Output Total 900 1150 250 Balance 294.403 27.224 -186 Weight 98.2 kg 97.2 kg Intake: IV 550 463.0 33 .9 NS 300 275 25 Cardizem 55 5 Fluconazole in NaCl,Iso- 50 Osm 100 mg In Saline 1 50ml.bag @ 50 mls/hr IVPB DAILY@1600 [facility] Rx#: [id number] Meropenem 1 gm In Sodium 200 100.0 Chloride 0.9% 100 ml @ 33 .3 mls/hr IVPB Q8HR [facility] Rx#:[id number] Pressure bag 33 3 Intake, IV Titration 331.403 263.224 Amount Diltiazem 125 mg In 110 Sodium Chloride 0.9% 100 ml @ 5 MG/HR 5 mls/hr IV .Q24H [facility] Rx#:[id number] Norepinephrine 32 mg In 190.159 12.406 Sodium Chloride 0.9% 218 ml @ 0.44 MCG/KG/MIN 18. 954 mls/hr IV .[id number] [facility] Rx#:[id number] propofoL 1,000 mg In 141.244 140.818 Empty Bag 1 bag @ Titrate IV .Q0M [facility] Rx#: [id number] Tube Feeding 313 361 31 Other 90 Output: Urine 850 1150 200 Stool 50 50 ABP, PAP, CO, CI - Last Documented Arterial Blood Pressure 103/42 - Exam GENERAL EXAM: Intubated, sedated 72-year-old gentleman, fairly comfortable in no apparent distress. HEAD: Normocephalic. EYES: Normal reaction of pupils, equal size. NOSE: Clear with pink turbinates. THROAT: Oral endotracheal and gastric tube secured in place. No erythema or exudates. NECK: No masses, no JVD. CHEST: No chest wall deformity. LUNGS: Equal air entry with crackles in the posterior bases. CVS: S1 and S2 normal with no audible murmur, regular rhythm. ABDOMEN: Urostomy on the left, ileostomy on the right, midline dressing dry and intact. SPINE: No scoliosis or deformity SKIN: No rashes CENTRAL NERVOUS SYSTEM: No focal deficits, tone is normal in all 4 extremities. EXTREMITIES: There is no peripheral edema. No clubbing, no cyanosis. Peripheral pulses are intact. - Labs CBC & Chem 7: 01/15/22 04:50 01/15/22 04:50 Labs: Abnormal Lab Results - Last 24 Hours (Table) 01/14/22 01/14/22 01/15/22 Range/Units 11:37 17:46 00:25 RBC (4.30-5.90) m/uL Hgb (13.0-17.5) gm/dL Hct (39.0-53.0) % MCHC (31.0-37.0) g/dL RDW (11.5-15.5) % Plt Count (150-450) k/uL Neutrophils # (1.3-7.7) k/uL Lymphocytes # (1.0-4.8) k/uL ABG HCO3 (21-25) mmol/L ABG Total CO2 (19-24) mmol/L ABG O2 Saturation (94-97) % Chloride (98-107) mmol/L BUN (9-20) mg/dL Creatinine (0.66-1.25) mg/dL Glucose (74-99) mg/dL POC Glucose (mg/dL) 257 H 487 H 162 H (75-99) mg/dL Calcium (8.4-10.2) mg/dL Phosphorus (2.5-4.5) mg/dL 01/15/22 01/15/22 01/15/22 Range/Units 04:50 04:50 05:28 RBC 2.58 L (4.30-5.90) m/uL Hgb 7.8 L (13.0-17.5) gm/dL Hct 25.6 L (39.0-53.0) % MCHC 30.6 L (31.0-37.0) g/dL RDW 16.2 H (11.5-15.5) % Plt Count 124 L (150-450) k/uL Neutrophils # 9.0 H (1.3-7.7) k/uL Lymphocytes # 0.3 L (1.0-4.8) k/uL ABG HCO3 26 H (21-25) mmol/L ABG Total CO2 28 H (19-24) mmol/L ABG O2 Saturation 97.7 H (94-97) % Chloride 112 H (98-107) mmol/L BUN 98 H (9-20) mg/dL Creatinine 2.10 H (0.66-1.25) mg/dL Glucose 230 H (74-99) mg/dL POC Glucose (mg/dL) (75-99) mg/dL Calcium 8.1 L (8.4-10.2) mg/dL Phosphorus 5.3 H (2.5-4.5) mg/dL 01/15/22 Range/Units 05:54 RBC (4.30-5.90) m/uL Hgb (13.0-17.5) gm/dL Hct (39.0-53.0) % MCHC (31.0-37.0) g/dL RDW (11.5-15.5) % Plt Count (150-450) k/uL Neutrophils # (1.3-7.7) k/uL Lymphocytes # (1.0-4.8) k/uL ABG HCO3 (21-25) mmol/L ABG Total CO2 (19-24) mmol/L ABG O2 Saturation (94-97) % Chloride (98-107) mmol/L BUN (9-20) mg/dL Creatinine (0.66-1.25) mg/dL Glucose (74-99) mg/dL POC Glucose (mg/dL) 259 H (75-99) mg/dL Calcium (8.4-10.2) mg/dL Phosphorus (2.5-4.5) mg/dL Microbiology - Last 24 Hours (Table) 01/11/22 16:39 Blood Culture - Preliminary Blood No Growth after 72 hours 01/10/22 11:55 Blood Culture Gram Stain - Final Blood Blood Culture - Final Proprionibacterium species Assessment and Plan Assessment: 1 Acute abdominal pain secondary to parastomal hernia containing small bowel demonstrating pneumobilia suggesting strangulation small bowel with possible perforation. Subcutaneous gas which may represent superimposed infection. No organizing fluid collection of the time to suggest abscess. Status post e xploratory laparotomy, repair of strangulated parastomal hernia, small bowel resection with ileostomy, repair of incisional hernia performed on 01/06/2022. 2 Sepsis with bacteremia secondary to pseudomonas aeruginosa 3 Hypotension secondary to above, requiring norepinephrine 4 Lactic acidosis, resolved 5 Acute renal failure, current creatinine 2.10 6 Hyperkalemia secondary to above, current potassium 4.6 7 History of bladder cancer with previous urostomy. 8 Diabetes mellitus with subsequent hyperglycemia 9 Hyperlipidemia 10 BPH 11 Visual disorder 12 Coronary artery disease with previous stent placement 13 Chronic tobacco dependence 14 Anemia, current hemoglobin 7.8 15 Thrombocytopenia, improving, current platelet count 124,000 Plan: The patient was seen and evaluated ABGs and labs reviewed We'll plan for daily interruption of sedation Continued on meropenem and fluconazole Continue hydrocortisone 50 mg IVP every 6 hours Wean down the norepinephrine as tolerated Continue vital HP for nutritional support Remains on a Cardizem drip. Anticoagulants per cardiology We will continue to follow and make further recommendations based on his clinical status Critical care time 38 minutes I, the cosigning physician, performed a history & physical examination of the patient. Lungs sounds with crackles in the posterior bases. Maintaining good O2 saturations in the 90s on 40% FiO2 and a PEEP of 6 via the mechanical ventilator. I discussed the assessment and plan of care with my nurse practitioner, Cony Siegel. I attest to the above note as dictated by her.
[2022-01-15 11:32] LABS: Glucose,Whole Blood 301 mg/dL (75-99)
[2022-01-15] MEDS ORDERED: LIDOCAINE 1% INJ 10MG/ML (20 ML MDV) SQ ONE (12:01)
[2022-01-15] MEDS ORDERED: INSULIN DETEMIR (LEVEMIR) 100 UNIT/ML SYR SQ ONE (13:00)
--- NOTE | 2022-01-15 13:17 | XR ---
EXAMINATION TYPE: XR chest 1V confirm line [facility] DATE OF EXAM: 01/15/2022 COMPARISON: 01/15/2022 HISTORY: PICC line TECHNIQUE: Single frontal view of the chest is obtained. FINDINGS: Right-sided PICC line seen overlying the right atrial SVC confluence. Additional right IJ central line seen with tip overlying the right atrium. Interstitial lung pattern again noted with bonnie ateral infiltrate and small effusion. Heart size stable. Atherosclerotic change aorta. No pneumothora x. IMPRESSION: 1. PICC line in good position. 2. Stable bilateral interstitial and alveolar infiltrates.
--- NOTE | 2022-01-15 13:26 | P.PN ---
Subjective Progress Note Date: 01/15/22 Xavier Langford is a 72 yo M with PMH of bladder cancer s/p cystectomy and urostomy, CAD, T2DM, who presented to the ED complaining of worsening abdominal pain and distention. CT on presentation showed large parastomal hernia obstructing his ileal conduit and concern for strangulation and possible perforation. Initial WBC 12.2. Hemoglobin 10.4. Sodium 138. Potassium 4.8. BUN 47. Creatinine 3.17. Glucose 252. Plasma lactic acid 2.2, trop negative. Pt underwent exploratory laparotomy, repair of strangulated parastomal hernia, small bowel resection with ileostomy, repair of incisional hernia. Today his labs reflect drop in WBC to 2.6, Potassium 6.1, Cr 3.8. Blood cultures preliminary revealing gram-negative bacilli. 01/08/22 Tachycardic, heart rates in the 120s to 130s, tachypneic.Maintained on Zo syn, blood culture reporting pseudomonas aeruginosa . Urine culture pending. Currently afebrile. Maintaining O2 sats in the high 90s on 2 L nasal cannula.Maintained on IV fluid hydration, and Levophed. Good urine output. Creatinine decreased to 3.65. ABGs reflecting metabolic acidosis, bicarb drip initiated. Complains of abdominal pain, greater on the right. Blood sugars controlled on low-dose Levemir. 01/09/2022 Developed atrial fibrillation with RVR in addition to respiratory distress requiring intubation and antiarrhythmics last night. Currently on FiO2 40%/+8 of PEEP. Maintained on fentanyl, bicarb, diprovan, amiodarone, vasopressin and the Levophed drips. Telemetry currently sinus rhythm .Continues on Zosyn for Pseudomonas bacteremia. Urine cultures negative. Sputum culture pending. Multiple fluid boluses yesterday, chest x-ray this morning reporting possible pneumonia, CHF, interstitial lung disease. Afebrile, T-max 99.4, normal WBC. Hemoglobin 8.8, platelets 135. Creatinine trending down, 3.15,Magnesium 1.6, nephrology following. 01/10/22 Remains vent dependent, FiO2 40%/+8 peep. Chest x-ray reporting stable bilateral infiltrate and pleural effusion, possible CHF superimposed on background of chronic interstitial pulmonary fibrosis and COPD, possible un derlying pneumonia. Telemetry sinus rhythm. 2-D echo completed, results pending .Maintained on bicarb, fentanyl, vasopressin, Levophed, diprovan drips. Hemoglobin 8.6 Creatinine continues to improve down to 2.72. T-max 99.8, WBC 4.5. Continues on Zosyn. 01/13/2010 remains vent dependent, FiO2 40%/+6 of PEEP. Chest x-ray pending. Maintained on diprovan, Levophed drips. T-max 100.1. Pseudomonas bacteremia suspect related to the abdomen. Maintained on meropenem, fluconazole. Preliminary repeat blood cultures currently reporting no growth after 24 hours. BUN 73, creatinine 2.09. Received a dose of Lasix today-generalized edema. Continues on TPN, tube feeds. 01/14/2022 vent dependent, FiO2 40%/+6 of PEEP. Chest x-ray reporting slight improvement. Last night developed atrial fibrillation with RVR, placed on Cardizem drip. Currently on sedation holiday with diprovan temporarily off. Continues to require pressor support with Levophed. Maintained on TPN ,blood sugars elevated. T-max 100.3, WBC 11.4, repeat preliminary blood cultures reporting no growth after 48 hours. 01/15/2022 remains vent dependent with FiO2 40%/+6 of PEEP. Maintained on Cardizem, Levophed and Diprovan drips. Failed weaning trials yesterday. Objective - Vital Signs Vital signs: Vital Signs Temp 99.1 F 01/15/22 04:00 Pulse 77 01/15/22 09:00 Resp 27 H 01/15/22 09:00 BP 114/62 01/15/22 09:00 Pulse Ox 98 01/15/22 09:00 Intake & Output 01/14/22 01/15/22 01/15/22 18:59 06:59 18:59 Intake Total 8721.182 2087.224 64 Output Total 900 1150 250 Balance 294.403 27.224 -186 Weight 98.2 kg 97.2 kg Intake: IV 550 463.0 33 .9 NS 300 275 25 Cardizem 55 5 Fluconazole in NaCl,Iso- 50 Osm 100 mg In Saline 1 50ml.bag @ 50 mls/hr IVPB DAILY@1600 [facility] Rx#: [id number] Meropenem 1 gm In Sodium 200 100.0 Chloride 0.9% 100 ml @ 33 .3 mls/hr IVPB Q8HR [facility] Rx#:[id number] Pressure bag 33 3 Intake, IV Titration 331.403 263.224 Amount Diltiazem 125 mg In 110 Sodium Chloride 0.9% 100 ml @ 5 MG/HR 5 mls/hr IV .Q24H [facility] Rx#:[id number] Norepinephrine 32 mg In 190.159 12.406 Sodium Chloride 0.9% 218 ml @ 0.44 MCG/KG/MIN 18. 954 mls/hr IV .[id number] [facility] Rx#:[id number] propofoL 1,000 mg In 141.244 140.818 Empty Bag 1 bag @ Titrate IV .Q0M [facility] Rx#: [id number] Tube Feeding 313 361 31 Other 90 Output: Urine 850 1150 200 Stool 50 50 ABP, PAP, CO, CI - Last Documented Arterial Blood Pressure 103/42 - Exam General: Intubated, sedation recently turned off Eyes: PERRL, EOMI, conjunctiva normal HENT: normocephalic, atraumatic Neck: supple, no JVD Lungs: normal respiratory effort, coarse rhonchi, no wheezes. CV: Regular rate and rhythm, no murmur. Peripheral pulses 2+, positive edema with trace edema lower extremities Abdomen: Distended, soft, ileostomy and urostomy,hypoactive BS. Skin: warm and dry. Microbiology 01/11/22 16:39 Blood Blood Culture - Preliminary No Growth after 72 hours 01/10/22 11:55 Blood Blood Culture Gram Stain - Final 01/10/22 11:55 Blood Blood Culture - Final Proprionibacterium species 01/10/22 11:55 Blood Blood Culture - Final 01/09/22 00:00 Sputum Gram Stain - Final 01/09/22 00:00 Sputum Sputum Culture - Final Vesta albicans 01/06/22 18:45 Blood Blood Culture Gram Stain - Final 01/06/22 18:45 Blood Blood Culture - Final Pseudomonas aeruginosa 01/07/22 18:30 Blood Blood Culture Gram Stain - Final 01/07/22 18:30 Blood Blood Culture - Final Pseudomonas aeruginosa 01/07/22 23:30 Urine,Voided Urine Culture - Final 01/06/22 18:30 Blood Blood Culture - Final 01/06/22 18:45 Blood Blood Culture - Final - Labs CBC & Chem 7: 01/15/22 04:50 01/15/22 04:50 Labs: Abnormal Lab Results - Last 24 Hours (Table) 01/14/22 01/15/22 01/15/22 Range/Units 17:46 00:25 04:50 RBC 2.58 L (4.30-5.90) m/uL Hgb 7.8 L (13.0-17.5) gm/dL Hct 25.6 L (39.0-53.0) % MCHC 30.6 L (31.0-37.0) g/dL RDW 16.2 H (11.5-15.5) % Plt Count 124 L (150-450) k/uL Neutrophils # 9.0 H (1.3-7.7) k/uL Lymphocytes # 0.3 L (1.0-4.8) k/uL ABG HCO3 (21-25) mmol/L ABG Total CO2 (19-24) mmol/L ABG O2 Saturation (94-97) % Chloride (98-107) mmol/L BUN (9-20) mg/dL Creatinine (0.66-1.25) mg/dL Glucose (74-99) mg/dL POC Glucose (mg/dL) 487 H 162 H (75-99) mg/dL Calcium (8.4-10.2) mg/dL Phosphorus (2.5-4.5) mg/dL 01/15/22 01/15/22 01/15/22 Range/Units 04:50 05:28 05:54 RBC (4.30-5.90) m/uL Hgb (13.0-17.5) gm/dL Hct (39.0-53.0) % MCHC (31.0-37.0) g/dL RDW (11.5-15.5) % Plt Count (150-450) k/uL Neutrophils # (1.3-7.7) k/uL Lymphocytes # (1.0-4.8) k/uL ABG HCO3 26 H (21-25) mmol/L ABG Total CO2 28 H (19-24) mmol/L ABG O2 Saturation 97.7 H (94-97) % Chloride 112 H (98-107) mmol/L BUN 98 H (9-20) mg/dL Creatinine 2.10 H (0.66-1.25) mg/dL Glucose 230 H (74-99) mg/dL POC Glucose (mg/dL) 259 H (75-99) mg/dL Calcium 8.1 L (8.4-10.2) mg/dL Phosphorus 5.3 H (2.5-4.5) mg/dL 01/15/22 Range/Units 11:30 RBC (4.30-5.90) m/uL Hgb (13.0-17.5) gm/dL Hct (39.0-53.0) % MCHC (31.0-37.0) g/dL RDW (11.5-15.5) % Plt Count (150-450) k/uL Neutrophils # (1.3-7.7) k/uL Lymphocytes # (1.0-4.8) k/uL ABG HCO3 (21-25) mmol/L ABG Total CO2 (19-24) mmol/L ABG O2 Saturation (94-97) % Chloride (98-107) mmol/L BUN (9-20) mg/dL Creatinine (0.66-1.25) mg/dL Glucose (74-99) mg/dL POC Glucose (mg/dL) 301 H (75-99) mg/dL Calcium (8.4-10.2) mg/dL Phosphorus (2.5-4.5) mg/dL Microbiology - Last 24 Hours (Table) 01/11/22 16:39 Blood Culture - Preliminary Blood No Growth after 72 hours 01/10/22 11:55 Blood Culture Gram Stain - Final Blood Blood Culture - Final Proprionibacterium species Assessment and Plan Assessment: Septic shock secondary to Pseudomonas bacteremia, etiology unclear, suspect abdomen Acute hypoxic respiratory failure secondary to the above. Hypotension, secondary to septic shock, pressor dependent Acute renal failure secondary to septic shock, hypotension Atrial fibrillation with RVR, new onset-suspect related to septic shock and bacteremia, currently sinus rhythm Thrombocytopenia, HIT W/U in progress Hyperkalemia secondary to the above Labs acidosis secondary to septic shock with bacteremia Metabolic acidosis secondary to acute renal failure, currently on bicarb drip Incarcerated hernia status post colostomy creation Diabetes mellitus type 2 History of bladder cancer with previous urostomy Plan: Continue on current medication regime ,monitoring and symptomatic treatment. Antibiotics as per ID. weaning trial scheduled again for today .ICU management as per multimedia author. Prognosis guarded given multiple complex medical issues. The impression and plan of care has been dictated as directed. : I performed a history and examination of this patient, discussed the same with the dictator. I agree with the dictator's note ,documented as a scribe. Any additional findings or plans will be noted.
--- NOTE | 2022-01-15 13:44 | IR ---
PICC LINE PLACEMENT: HISTORY: TPN PROCEDURE: Ultrasound guidance of PICC line placement. COMPLICATIONS: None ANESTHESIA: 1. 1% Lidocaine locally. FINDINGS/TECHNIQUE: The procedure was explained to the patient. The risks, complications, benefits and alternatives were discussed and any questions were answered. Informed consent was obtained. The patient was placed supine on the fluoroscopic table and prepped and draped in the usual sterile fash ion. Utilizing a 21 gauge needle and sonographic guidance, access in the right basilic vein was ach ieved and there is placement of a 0.018 guidewire. The vein is patent. A 5-F. sheath was placed ove r the guidewire. The guidewire and dilator were removed and a 5-F. Double lumen PICC line was placed through the sheath with the chest x-ray confirming the tip at the level of the SVC. The sheath was removed, the catheter was flushed and sutured into position. The patient was stable throughout the p rocedure and remained stable upon discharge from the Department of Radiology. The vein puncture was patent under ultrasound. A clancy scale image was obtained to document patency of the vein punctured. All elements of the maximal barrier technique were utilized. IMPRESSION: 1. Successful PICC line placement under ultrasound performed bedside within the ICU.
[2022-01-15] MEDS ORDERED: SODIUM FERRIC GLUCONAT-SUCROSE 125 MG in SODIUM CHLORIDE 0.9% 100 ML IVPB ONE (15:00)
--- NOTE | 2022-01-15 15:18 | P.PN ---
Subjective Progress Note Date: 01/15/22 CHIEF COMPLAINT: Strangulated parastomal hernia HISTORY OF PRESENT ILLNESS: Patient is status post Exploratory laparotomy, Repair of strangulated parastomal hernia, Small bowel resection with ileostomy and Repair of incisional hernia. POD #9. They're trying to wean patient off of the vent today. He is tolerating tube feeds. TPN has been discontinued. He remains anemic 11 7.8 which is down from 8.4. He'll receive a dose of IV iron. They have discontinue the propofol and weaning down on the Levophed. Ostomy is functioning. Afebrile Patient seen and examined with Dr. allen PHYSICAL EXAM: VITAL SIGNS: Reviewed. GENERAL: Well-developed in no acute distress. HEENT: No sclera icterus. Extraocular movements grossly intact. Moist buccal mucosa. Head is atraumatic, normocephalic. ABDOMEN: Soft. Abdominal incision site clean dry and intact. 2 areas are open with gauze placed. Ileostomy liquidy brown stool. Urostomy stoma continues become less dusky and more pink. Urine is clear NEUROLOGIC: Intubated and sedated ASSESSMENT: 1. Strangulated parastomal hernia and incisional hernia status post Exploratory laparotomy, Repair of strangulated parastomal hernia, Small bowel resection with ileostomy and Repair of incisional hernia 2. Abdominal incision infection 3. History of bladder cancer with urostomy 4. Acute kidney injury 5. Sepsis and septic shock 6. Bacteremia with Pseudomonas 7. New onset of A. fib PLAN: -We'll give a dose of IV iron for anemia -Continue local wound care -Continue ICU management -Continue supportive care -Continue antibiotics per ID -DVT prophylaxis subcu heparin and GI prophylaxis Protonix Physician Mortgage Counselor note has been reviewed by physician. Signing provider agrees with the documented findings, assessment, and plan of care. Objective - Vital Signs Vital signs: Vital Signs Temp 99.1 F 01/15/22 04:00 Pulse 79 01/15/22 15:13 Resp 31 H 01/15/22 14:00 BP 111/61 01/15/22 12:00 Pulse Ox 98 01/15/22 14:00 Intake & Output 01/14/22 01/15/22 01/15/22 18:59 06:59 18:59 Intake Total 7512.150 6700.224 784.980 Output Total 900 1150 1300 Balance 294.403 27.224 -515.020 Weight 98.2 kg 97.2 kg Intake: IV 550 463.0 133 .9 NS 300 275 25 Cardizem 55 5 Fluconazole in NaCl,Iso- 50 Osm 100 mg In Saline 1 50ml.bag @ 50 mls/hr IVPB DAILY@1600 [facility] Rx#: [id number] Meropenem 1 gm In Sodium 200 100.0 100 Chloride 0.9% 100 ml @ 33 .3 mls/hr IVPB Q8HR [facility] Rx#:[id number] Pressure bag 33 3 Intake, IV Titration 331.403 263.224 296.980 Amount Diltiazem 125 mg In 110 Sodium Chloride 0.9% 100 ml @ 5 MG/HR 5 mls/hr IV .Q24H [facility] Rx#:[id number] Norepinephrine 32 mg In 190.159 12.406 133.150 Sodium Chloride 0.9% 218 ml @ 0.44 MCG/KG/MIN 18. 954 mls/hr IV .[id number] [facility] Rx#:[id number] Sodium Ferric Gluconat- 100 Sucrose 125 mg In Sodium Chloride 0.9% 100 ml @ 100 mls/hr IVPB ONCE ONE Rx#:[id number] propofoL 1,000 mg In 141.244 140.818 63.83 Empty Bag 1 bag @ Titrate IV .Q0M [facility] Rx#: [id number] Tube Feeding 313 361 155 Other 90 200 Output: Urine 850 1150 1150 Stool 50 150 ABP, PAP, CO, CI - Last Documented Arterial Blood Pressure 110/37 - Labs CBC & Chem 7: 01/15/22 04:50 01/15/22 04:50 Labs: Abnormal Lab Results - Last 24 Hours (Table) 01/14/22 01/15/22 01/15/22 Range/Units 17:46 00:25 04:50 RBC 2.58 L (4.30-5.90) m/uL Hgb 7.8 L (13.0-17.5) gm/dL Hct 25.6 L (39.0-53.0) % MCHC 30.6 L (31.0-37.0) g/dL RDW 16.2 H (11.5-15.5) % Plt Count 124 L (150-450) k/uL Neutrophils # 9.0 H (1.3-7.7) k/uL Lymphocytes # 0.3 L (1.0-4.8) k/uL ABG HCO3 (21-25) mmol/L ABG Total CO2 (19-24) mmol/L ABG O2 Saturation (94-97) % Chloride (98-107) mmol/L BUN (9-20) mg/dL Creatinine (0.66-1.25) mg/dL Glucose (74-99) mg/dL POC Glucose (mg/dL) 487 H 162 H (75-99) mg/dL Calcium (8.4-10.2) mg/dL Phosphorus (2.5-4.5) mg/dL 01/15/22 01/15/22 01/15/22 Range/Units 04:50 05:28 05:54 RBC (4.30-5.90) m/uL Hgb (13.0-17.5) gm/dL Hct (39.0-53.0) % MCHC (31.0-37.0) g/dL RDW (11.5-15.5) % Plt Count (150-450) k/uL Neutrophils # (1.3-7.7) k/uL Lymphocytes # (1.0-4.8) k/uL ABG HCO3 26 H (21-25) mmol/L ABG Total CO2 28 H (19-24) mmol/L ABG O2 Saturation 97.7 H (94-97) % Chloride 112 H (98-107) mmol/L BUN 98 H (9-20) mg/dL Creatinine 2.10 H (0.66-1.25) mg/dL Glucose 230 H (74-99) mg/dL POC Glucose (mg/dL) 259 H (75-99) mg/dL Calcium 8.1 L (8.4-10.2) mg/dL Phosphorus 5.3 H (2.5-4.5) mg/dL 01/15/22 Range/Units 11:30 RBC (4.30-5.90) m/uL Hgb (13.0-17.5) gm/dL Hct (39.0-53.0) % MCHC (31.0-37.0) g/dL RDW (11.5-15.5) % Plt Count (150-450) k/uL Neutrophils # (1.3-7.7) k/uL Lymphocytes # (1.0-4.8) k/uL ABG HCO3 (21-25) mmol/L ABG Total CO2 (19-24) mmol/L ABG O2 Saturation (94-97) % Chloride (98-107) mmol/L BUN (9-20) mg/dL Creatinine (0.66-1.25) mg/dL Glucose (74-99) mg/dL POC Glucose (mg/dL) 301 H (75-99) mg/dL Calcium (8.4-10.2) mg/dL Phosphorus (2.5-4.5) mg/dL Microbiology - Last 24 Hours (Table) 01/11/22 16:39 Blood Culture - Preliminary Blood No Growth after 72 hours 01/10/22 11:55 Blood Culture Gram Stain - Final Blood Blood Culture - Final Proprionibacterium species
--- NOTE | 2022-01-15 15:35 | P.PN ---
Subjective Progress Note Date: 01/15/22 This is a 72-year-old gentleman with history of coronary artery disease with previous PCI, diabetes mellitus, hypertension and hyperlipidemia and also history of bladder cancer with urostomy. Patient is status post surgery for perforated viscus. Patient is also intubated. His echocardiogram showed an ej ection fraction about 35-40% with global hypokinesia without any significant valvular abnormalities. Patient had an episode of A. fib but converted back to sinus rhythm. In the rhythm appears to be mostly is a sinus rhythm with APCs are multifocal atrial rhythm at this time. 01/14/2022: This patient is status post surgery for possible perforated viscus. Patient also has sepsis. We're following patient because of intermittent atrial fibrillation. Patient is currently on IV Cardizem 5 mg daily is maintaining sinus rhythm. His her multiple medications including antibiotics. Still on mechanical ventilator. His echo [place] showed ejection fraction 35-40%. We'll continue current management. We'll follow. 01/15/2022: This patient with history of coronary artery disease, diabetes, hy pertension and hypercholesterolemia who was admitted to the abdominal pain and was noted. Strength ablation of the small bowel in the parastomal hernia. Patient underwent surgical procedure including small bowel resection and ileostomy. Patient is also being treated for sepsis and bacteremia and also hypertension. patient had episodes of atrial fibrillation and was treated with amiodarone. Patient is on IV Cardizem and maintaining sinus rhythm. Patient had thrombocytopenia and also anemia. Platelet count is improving and seemed to be around 1 20,000. However, his hemoglobin dropped to 7.8. Patient needs to go on and decortication therapy because of his coronary artery disease and imp aired LV function. He was okay with the surgical team, patient to be constricted for Eliquis 5 mg by mouth twice a day. However, his platelet counts and hemoglobin 8 followed closely Objective - Vital Signs Vital signs: Vital Signs Temp 99.1 F 01/15/22 04:00 Pulse 79 01/15/22 15:13 Resp 31 H 01/15/22 14:00 BP 111/61 01/15/22 12:00 Pulse Ox 98 01/15/22 14:00 Intake & Output 01/14/22 01/15/22 01/15/22 18:59 06:59 18:59 Intake Total 0840.706 3867.224 784.980 Output Total 900 1150 1300 Balance 294.403 27.224 -515.020 Weight 98.2 kg 97.2 kg Intake: IV 550 463.0 133 .9 NS 300 275 25 Cardizem 55 5 Fluconazole in NaCl,Iso- 50 Osm 100 mg In Saline 1 50ml.bag @ 50 mls/hr IVPB DAILY@1600 [facility] Rx#: [id number] Meropenem 1 gm In Sodium 200 100.0 100 Chloride 0.9% 100 ml @ 33 .3 mls/hr IVPB Q8HR [facility] Rx#:[id number] Pressure bag 33 3 Intake, IV Titration 331.403 263.224 296.980 Amount Diltiazem 125 mg In 110 Sodium Chloride 0.9% 100 ml @ 5 MG/HR 5 mls/hr IV .Q24H [facility] Rx#:[id number] Norepinephrine 32 mg In 190.159 12.406 133.150 Sodium Chloride 0.9% 218 ml @ 0.44 MCG/KG/MIN 18. 954 mls/hr IV .[id number] [facility] Rx#:[id number] Sodium Ferric Gluconat- 100 Sucrose 125 mg In Sodium Chloride 0.9% 100 ml @ 100 mls/hr IVPB ONCE ONE Rx#:[id number] propofoL 1,000 mg In 141.244 140.818 63.83 Empty Bag 1 bag @ Titrate IV .Q0M [facility] Rx#: [id number] Tube Feeding 313 361 155 Other 90 200 Output: Urine 850 1150 1150 Stool 50 150 ABP, PAP, CO, CI - Last Documented Arterial Blood Pressure 110/37 - Exam GENERAL EXAM: Patient is intubated and sedated HEENT: Normocephalic. Normal reaction of pupils, equal size, normal range of extraocular motion. No erythema or exudates in the throat. NECK: No masses, no nuchal rigidity. CHEST: No chest wall deformity. LUNGS: Diminished air exchange HEART: S1 and S2 normal . Distant heart sounds ABDOMEN: No hepatosplenomegaly, normal bowel sounds, no guarding or rigidity. SKIN: No rashes CENTRAL NERVOUS SYSTEM: Deferred EXTREMITIES: No cyanosis, clubbing or edema. - Labs CBC & Chem 7: 01/15/22 04:50 01/15/22 04:50 Labs: Abnormal Lab Results - Last 24 Hours (Table) 0201/15/22 01/15/22 Range/Units 17:46 00:25 04:50 RBC 2.58 L (4.30-5.90) m/uL Hgb 7.8 L (13.0-17.5) gm/dL Hct 25.6 L (39.0-53.0) % MCHC 30.6 L (31.0-37.0) g/dL RDW 16.2 H (11.5-15.5) % Plt Count 124 L (150-450) k/uL Neutrophils # 9.0 H (1.3-7.7) k/uL Lymphocytes # 0.3 L (1.0-4.8) k/uL ABG HCO3 (21-25) mmol/L ABG Total CO2 (19-24) mmol/L ABG O2 Saturation (94-97) % Chloride (98-107) mmol/L BUN (9-20) mg/dL Creatinine (0.66-1.25) mg/dL Glucose (74-99) mg/dL POC Glucose (mg/dL) 487 H 162 H (75-99) mg/dL Calcium (8.4-10.2) mg/dL Phosphorus (2.5-4.5) mg/dL 01/15/22 01/15/22 01/15/22 Range/Units 04:50 05:28 05:54 RBC (4.30-5.90) m/uL Hgb (13.0-17.5) gm/dL Hct (39.0-53.0) % MCHC (31.0-37.0) g/dL RDW (11.5-15.5) % Plt Count (150-450) k/uL Neutrophils # (1.3-7.7) k/uL Lymphocytes # (1.0-4.8) k/uL ABG HCO3 26 H (21-25) mmol/L ABG Total CO2 28 H (19-24) mmol/L ABG O2 Saturation 97.7 H (94-97) % Chloride 112 H (98-107) mmol/L BUN 98 H (9-20) mg/dL Creatinine 2.10 H (0.66-1.25) mg/dL Glucose 230 H (74-99) mg/dL POC Glucose (mg/dL) 259 H (75-99) mg/dL Calcium 8.1 L (8.4-10.2) mg/dL Phosphorus 5.3 H (2.5-4.5) mg/dL 01/15/22 Range/Units 11:30 RBC (4.30-5.90) m/uL Hgb (13.0-17.5) gm/dL Hct (39.0-53.0) % MCHC (31.0-37.0) g/dL RDW (11.5-15.5) % Plt Count (150-450) k/uL Neutrophils # (1.3-7.7) k/uL Lymphocytes # (1.0-4.8) k/uL ABG HCO3 (21-25) mmol/L ABG Total CO2 (19-24) mmol/L ABG O2 Saturation (94-97) % Chloride (98-107) mmol/L BUN (9-20) mg/dL Creatinine (0.66-1.25) mg/dL Glucose (74-99) mg/dL POC Glucose (mg/dL) 301 H (75-99) mg/dL Calcium (8.4-10.2) mg/dL Phosphorus (2.5-4.5) mg/dL Microbiology - Last 24 Hours (Table) 01/11/22 16:39 Blood Culture - Preliminary Blood No Growth after 72 hours 01/10/22 11:55 Blood Culture Gram Stain - Final Blood Blood Culture - Final Proprionibacterium species Assessment and Plan (1) Atrial fibrillation Current Visit: Yes Status: Acute Code(s): I48.91 - UNSPECIFIED ATRIAL FIBRILLATION SNOMED Code(s): 68935787 (2) Bowel perforation Current Visit: Yes Status: Acute Code(s): K63.1 - PERFORATION OF INTESTINE (NONTRAUMATIC) SNOMED Code(s): 64599538 (3) Chronic renal failure Current Visit: Yes Status: Acute Code(s): N18.9 - CHRONIC KIDNEY DISEASE, UNSPECIFIED SNOMED Code(s): 00163063 (4) Strangulated hernia of abdominal wall Current Visit: Yes Status: Acute Code(s): K43.6 - OTHER AND UNSP VENTRAL HERNIA WITH OBSTRUCTION, W/O GANGRENE SNOMED Code(s): 84503353 Plan: A she is maintaining sinus rhythm. His on IV Cardizem. His hemoglobin dropped to 7.8, platelet count improved to 1 25,000. We will discuss with surgical team regarding possibility of initiating anticoagulation therapy
[2022-01-15] MEDS: FLUCONAZOLE IN NACL,ISO-OSM 100 MG in SALINE 1 50ML.BAG IVPB SCH (16:38)
[2022-01-15 17:46] LABS: Glucose,Whole Blood 299 mg/dL (75-99)
[2022-01-15] MEDS: HYDROmorphone 1 MG/ML 1 ML SYRINGE IVP PRN (19:07)
[2022-01-15 21:29] LABS: Glucose,Whole Blood 278 mg/dL (75-99)
[2022-01-15] MEDS: INSULIN DETEMIR (LEVEMIR) 100 UNIT/ML SYR SQ SCH (21:29)
[2022-01-15] MEDS: APIXABAN 5 MG TAB PO SCH (21:37)
--- NOTE | 2022-01-15 21:40 | P.PN ---
Subjective Progress Note Date: 01/14/22 Principal diagnosis: Pseudomonas bacteremia Patient is 72-year-old male, presented to hospital with abdominal pain has been diagnosed with strangulated parastomal hernia, in this patient was status post exploratory laparotomy, small bowel resection with ileostomy and re pair of incisional hernia patient was noticed to have a positive blood culture has been finalized with pseudomonas aeruginosa, patient was transferred to the ICU because of hypotension. On today's evaluation that is 01/13/2022, the patient did have a fever of 100.2F this morning, patient remains to be intubated on the vent and FiO2 is currently stable at 40%, the patient is hemodynamically stable , no significant purulent secretions through the ET or diarrhea reported by the nursing staff Objective - Vital Signs Vital signs: Vital Signs Temp 99.0 F 01/14/22 08:00 Pulse 110 H 01/14/22 09:00 Resp 26 H 01/14/22 09:00 BP 110/71 01/14/22 09:00 Pulse Ox 97 01/14/22 09:00 Intake & Output 01/13/22 01/14/22 01/14/22 18:59 06:59 18:59 Intake Total 0873.002 6853.724 221.445 Output Total 2210 1100 Balance -1031.467 315.724 221.445 Weight 98.2 kg 98.2 kg Intake: IV 550 950 .9 NS 300 250 Fluconazole in NaCl,Iso- 50 Osm 100 mg In Saline 1 50ml.bag @ 50 mls/hr IVPB DAILY@1600 [facility] Rx#: [id number] Meropenem 1 gm In Sodium 200 100 Chloride 0.9% 100 ml @ 33 .3 mls/hr IVPB Q8HR [facility] Rx#:[id number] Parenteral Electrolytes 600 20 ml Potassium Chloride 20 meq In Amino Acid 4.25 %-D10w 1,000 ml @ 60 mls/ hr IV .BY DURATION [facility] Rx #:[id number] Intake, IV Titration 388.533 115.724 201.445 Amount Magnesium Sulfate-D5w Pmx 200 1 gm In Dextrose/Water 1 100ml.bag @ 100 mls/hr IVPB Q1H [facility] Rx#: [id number] Norepinephrine 32 mg In 88.533 15.724 101.445 Sodium Chloride 0.9% 218 ml @ 0.44 MCG/KG/MIN 18. 954 mls/hr IV .[id number] [facility] Rx#:[id number] propofoL 1,000 mg In 100 100.000 100 Empty Bag 1 bag @ Titrate IV .Q0M [facility] Rx#: [id number] Tube Feeding 240 200 20 Other 150 Output: Urine 1660 1100 Stool 550 ABP, PAP, CO, CI - Last Documented Arterial Blood Pressure 74/47 - Exam GENERAL DESCRIPTION: An elderly male intubated on the vent RESPIRATORY SYSTEM: Unlabored breathing , decreased breath sounds at bases HEART: S1 S2 regular rate and rhythm , ABDOMEN: Soft , mild distention, no tenderness EXTREMITIES: No edema feeT - Labs CBC & Chem 7: 01/15/22 04:50 01/15/22 04:50 Labs: Abnormal Lab Results - Last 24 Hours (Table) 01/13/22 01/14/22 01/14/22 Range/Units 18:05 02:23 04:30 WBC 11.4 H (3.8-10.6) k/uL RBC 2.67 L (4.30-5.90) m/uL Hgb 8.4 L (13.0-17.5) gm/dL Hct 26.6 L (39.0-53.0) % RDW 15.7 H (11.5-15.5) % Plt Count 98 L (150-450) k/uL Neutrophils # 10.6 H (1.3-7.7) k/uL Lymphocytes # 0.4 L (1.0-4.8) k/uL ABG pH (7.35-7.45) ABG HCO3 (21-25) mmol/L ABG Total CO2 (19-24) mmol/L ABG O2 Saturation (94-97) % Chloride (98-107) mmol/L BUN (9-20) mg/dL Creatinine (0.66-1.25) mg/dL Glucose (74-99) mg/dL POC Glucose (mg/dL) 225 H 313 H (75-99) mg/dL Calcium (8.4-10.2) mg/dL 01/14/22 01/14/22 01/14/22 Range/Units 04:30 05:49 07:06 WBC (3.8-10.6) k/uL RBC (4.30-5.90) m/uL Hgb (13.0-17.5) gm/dL Hct (39.0-53.0) % RDW (11.5-15.5) % Plt Count (150-450) k/uL Neutrophils # (1.3-7.7) k/uL Lymphocytes # (1.0-4.8) k/uL ABG pH 7.46 H (7.35-7.45) ABG HCO3 27 H (21-25) mmol/L ABG Total CO2 28 H (19-24) mmol/L ABG O2 Saturation 97.3 H (94-97) % Chloride 109 H (98-107) mmol/L BUN 84 H (9-20) mg/dL Creatinine 2.01 H (0.66-1.25) mg/dL Glucose 299 H (74-99) mg/dL POC Glucose (mg/dL) 314 H (75-99) mg/dL Calcium 7.9 L (8.4-10.2) mg/dL 01/14/22 Range/Units 11:37 WBC (3.8-10.6) k/uL RBC (4.30-5.90) m/uL Hgb (13.0-17.5) gm/dL Hct (39.0-53.0) % RDW (11.5-15.5) % Plt Count (150-450) k/uL Neutrophils # (1.3-7.7) k/uL Lymphocytes # (1.0-4.8) k/uL ABG pH (7.35-7.45) ABG HCO3 (21-25) mmol/L ABG Total CO2 (19-24) mmol/L ABG O2 Saturation (94-97) % Chloride (98-107) mmol/L BUN (9-20) mg/dL Creatinine (0.66-1.25) mg/dL Glucose (74-99) mg/dL POC Glucose (mg/dL) 257 H (75-99) mg/dL Calcium (8.4-10.2) mg/dL Microbiology - Last 24 Hours (Table) 01/10/22 11:55 Blood Culture Gram Stain - Final Blood Blood Culture - Final Proprionibacterium species 01/11/22 16:39 Blood Culture - Preliminary Blood No Growth after 48 hours 01/10/22 11:55 Blood Culture - Final Blood Assessment and Plan (1) Bacteremia Current Visit: Yes Status: Acute Code(s): R78.81 - BACTEREMIA SNOMED Code(s): 0375898 Plan: 1-Patient with pseudomonas bacteremia source is likely abdominal and this patient presented to the hospital with incarcerated hernia status post small bowel resection and ileostomy and repair of the hernia patient did have worsening of his respiratory status requiring intubation, patient pseudomonas with intermediate sensitivity to Zosyn and cefepime, patient is currently covered with meropenem repeat blood culture has been negative so for 2-positive sputum culture with Vesta likely colonizer, continue supportive care Time with Patient: Less than 30
--- NOTE | 2022-01-15 21:42 | P.PN ---
Subjective Progress Note Date: 01/15/22 Principal diagnosis: Pseudomonas bacteremia Patient is 72-year-old male, presented to hospital with abdominal pain has been diagnosed with strangulated parastomal hernia, in this patient was status post exploratory laparotomy, small bowel resection with ileostomy and re pair of incisional hernia patient was noticed to have a positive blood culture has been finalized with pseudomonas aeruginosa, patient was transferred to the ICU because of hypotension. On today's evaluation that is 01/15/2022, the patient is afebrile today, patient is intubated on the vent and FiO2 is currently stable at 40%, the patient is hemodynamically stable, no purulent secretions through the ET or diarrhea reported by the nursing staff Objective - Vital Signs Vital signs: Vital Signs Temp 98.6 F 01/15/22 16:00 Pulse 75 01/15/22 16:00 Resp 33 H 01/15/22 16:00 BP 111/61 01/15/22 12:00 Pulse Ox 95 01/15/22 16:00 Intake & Output 01/14/22 01/15/22 01/15/22 18:59 06:59 18:59 Intake Total 7475.676 3439.224 1108.980 Output Total 900 1150 1450 Balance 294.403 27.224 -341.020 Weight 98.2 kg 97.2 kg Intake: IV 550 463.0 133 .9 NS 300 275 25 Cardizem 55 5 Fluconazole in NaCl,Iso- 50 Osm 100 mg In Saline 1 50ml.bag @ 50 mls/hr IVPB DAILY@1600 [facility] Rx#: [id number] Meropenem 1 gm In Sodium 200 100.0 100 Chloride 0.9% 100 ml @ 33 .3 mls/hr IVPB Q8HR [facility] Rx#:[id number] Pressure bag 33 3 Intake, IV Titration 331.403 263.224 296.980 Amount Diltiazem 125 mg In 110 Sodium Chloride 0.9% 100 ml @ 5 MG/HR 5 mls/hr IV .Q24H [facility] Rx#:[id number] Norepinephrine 32 mg In 190.159 12.406 133.150 Sodium Chloride 0.9% 218 ml @ 0.44 MCG/KG/MIN 18. 954 mls/hr IV .[id number] [facility] Rx#:[id number] Sodium Ferric Gluconat- 100 Sucrose 125 mg In Sodium Chloride 0.9% 100 ml @ 100 mls/hr IVPB ONCE ONE Rx#:[id number] propofoL 1,000 mg In 141.244 140.818 63.83 Empty Bag 1 bag @ Titrate IV .Q0M [facility] Rx#: [id number] Tube Feeding 313 361 279 Other 90 400 Output: Urine 850 1150 1300 Stool 50 150 ABP, PAP, CO, CI - Last Documented Arterial Blood Pressure 110/34 - Exam GENERAL DESCRIPTION: An elderly male intubated on the vent RESPIRATORY SYSTEM: Unlabored breathing , decreased breath sounds at bases HEART: S1 S2 regular rate and rhythm , ABDOMEN: Soft , mild distention, no tenderness EXTREMITIES: No edema feet - Labs CBC & Chem 7: 01/15/22 04:50 01/15/22 04:50 Labs: Abnormal Lab Results - Last 24 Hours (Table) 01/14/22 01/15/22 01/15/22 Range/Units 17:46 00:25 04:50 RBC 2.58 L (4.30-5.90) m/uL Hgb 7.8 L (13.0-17.5) gm/dL Hct 25.6 L (39.0-53.0) % MCHC 30.6 L (31.0-37.0) g/dL RDW 16.2 H (11.5-15.5) % Plt Count 124 L (150-450) k/uL Neutrophils # 9.0 H (1.3-7.7) k/uL Lymphocytes # 0.3 L (1.0-4.8) k/uL ABG HCO3 (21-25) mmol/L ABG Total CO2 (19-24) mmol/L ABG O2 Saturation (94-97) % Chloride (98-107) mmol/L BUN (9-20) mg/dL Creatinine (0.66-1.25) mg/dL Glucose (74-99) mg/dL POC Glucose (mg/dL) 487 H 162 H (75-99) mg/dL Calcium (8.4-10.2) mg/dL Phosphorus (2.5-4.5) mg/dL 01/15/22 01/15/22 01/15/22 Range/Units 04:50 05:28 05:54 RBC (4.30-5.90) m/uL Hgb (13.0-17.5) gm/dL Hct (39.0-53.0) % MCHC (31.0-37.0) g/dL RDW (11.5-15.5) % Plt Count (150-450) k/uL Neutrophils # (1.3-7.7) k/uL Lymphocytes # (1.0-4.8) k/uL ABG HCO3 26 H (21-25) mmol/L ABG Total CO2 28 H (19-24) mmol/L ABG O2 Saturation 97.7 H (94-97) % Chloride 112 H (98-107) mmol/L BUN 98 H (9-20) mg/dL Creatinine 2.10 H (0.66-1.25) mg/dL Glucose 230 H (74-99) mg/dL POC Glucose (mg/dL) 259 H (75-99) mg/dL Calcium 8.1 L (8.4-10.2) mg/dL Phosphorus 5.3 H (2.5-4.5) mg/dL 01/15/22 Range/Units 11:30 RBC (4.30-5.90) m/uL Hgb (13.0-17.5) gm/dL Hct (39.0-53.0) % MCHC (31.0-37.0) g/dL RDW (11.5-15.5) % Plt Count (150-450) k/uL Neutrophils # (1.3-7.7) k/uL Lymphocytes # (1.0-4.8) k/uL ABG HCO3 (21-25) mmol/L ABG Total CO2 (19-24) mmol/L ABG O2 Saturation (94-97) % Chloride (98-107) mmol/L BUN (9-20) mg/dL Creatinine (0.66-1.25) mg/dL Glucose (74-99) mg/dL POC Glucose (mg/dL) 301 H (75-99) mg/dL Calcium (8.4-10.2) mg/dL Phosphorus (2.5-4.5) mg/dL Microbiology - Last 24 Hours (Table) 01/11/22 16:39 Blood Culture - Preliminary Blood No Growth after 72 hours 01/10/22 11:55 Blood Culture Gram Stain - Final Blood Blood Culture - Final Proprionibacterium species Assessment and Plan (1) Bacteremia Current Visit: Yes Status: Acute Code(s): R78.81 - BACTEREMIA SNOMED Code(s): 1852972 Plan: 1-Patient with pseudomonas bacteremia source is likely abdominal and this patient presented to the hospital with incarcerated hernia status post small bowel resection and ileostomy and repair of the hernia patient did have worsening of his respiratory status requiring intubation, patient pseudomonas with intermediate sensitivity to Zosyn and cefepime, patient is currently covered with meropenem repeat blood culture did grew Propionibacterium and should be covered with the meropenem 2-positive sputum culture with Vesta likely colonizer, continue supportive care Time with Patient: Less than 30
[2022-01-15 23:57] LABS: Glucose,Whole Blood 195 mg/dL (75-99)
[2022-01-16 00:05] LABS: Glucose,Whole Blood 210 mg/dL (75-99)
[2022-01-16] MEDS: HYDROCORTISONE SUCCINATE 100 MG/2 ML VIAL IV SCH ×3 (00:07→17:37)
[2022-01-16] MEDS: INSULIN ASPART (NovoLOG) 100 UNIT/ML VIAL SQ SCH ×5 (00:07→23:37)
[2022-01-16] MEDS: MEROPENEM 1 GM in SODIUM CHLORIDE 0.9% 100 ML IVPB SCH ×4 (00:07→23:37)
[2022-01-16] MEDS: SODIUM CHLORIDE 0.9% 1,000 ML IV SCH (00:08)
[2022-01-16 05:14] LABS: Glucose,Whole Blood 210 mg/dL (75-99)
[2022-01-16 05:28] LABS: Anisocytosis Slight; Basophils % (A) 0 %; Eosinophils % (A) 0 %; HCT 21.4 % (39.0-53.0); Hypochromasia Slight; Lymphocytes # (A) 0.3 k/uL (1.0-4.8); Lymphocytes % (A) 4 %; MCH 30.8 pg (25.0-35.0); MCHC 31.2 g/dL (31.0-37.0); MCV 98.7 fL (80.0-100.0); Macrocytosis Slight; Mean Platelet Volume 10.4; Monocytes # (A) 0.2 k/uL (0-1.0); Monocytes % (A) 4 %; Neutrophils # (A) 5.8 k/uL (1.3-7.7); Neutrophils % (A) 91 %; Platelet Count 126 k/uL (150-450); RBC 2.17 m/uL (4.30-5.90); RDW 16.2 % (11.5-15.5); WBC 6.4 k/uL (3.8-10.6)
[2022-01-16 05:31] LABS: ABG Base Excess 2.7 mmol/L; ABG HCO3 27 mmol/L (21-25); ABG PCO2 39 mmHg (35-45); ABG PH 7.44 (7.35-7.45); ABG PO2 108 mmHg (83-108); ABG TCO2 28 mmol/L (19-24); Allen Test Performed? Yes
[2022-01-16 05:38] LABS: HGB 6.7 gm/dL (13.0-17.5)
[2022-01-16 05:49] LABS: Potassium 3.9 mmol/L (3.5-5.1)
[2022-01-16] MEDS: IPRATROPIUM-ALBUTEROL 3 ML NEB INHALATION SCH ×4 (08:18→20:59)
--- NOTE | 2022-01-16 08:46 | P.PN ---
Subjective Patient is seen in follow-up for acute kidney injury. Renal function slightly better. Scheduled to receive a unit of blood today. Possible extubation today as well. Nonoliguric. Receiving tube feeds. Off Levophed. On Cardizem drip for A. fib. Intubated. On 40% FiO2. Vital signs are stable. HEENT: Intubated. LUNGS: Breath sounds decreased. HEART: Regular rate and rhythm. ABDOMEN: No distention. EXTREMITITES: Trace edema. Objective - Vital Signs Vital signs: Vital Signs Temp 98.8 F 01/16/22 04:00 Pulse 85 01/16/22 08:27 Resp 26 H 01/16/22 07:00 BP 118/59 01/16/22 06:00 Pulse Ox 97 01/16/22 07:00 Intake & Output 01/15/22 01/16/22 01/16/22 18:59 06:59 18:59 Intake Total 1590.906 889.214 47 Output Total 1925 1095 50 Balance -334.094 -205.786 -3 Weight 97.2 kg 96.3 kg Intake: IV 283 164 16 .9 NS 25 140 10 Cardizem 5 Fluconazole in NaCl,Iso- 50 Osm 100 mg In Saline 1 50ml.bag @ 50 mls/hr IVPB DAILY@1600 [facility] Rx#: [id number] Meropenem 1 gm In Sodium 200 Chloride 0.9% 100 ml @ 33 .3 mls/hr IVPB Q8HR [facility] Rx#:[id number] Pressure bag 3 24 6 Intake, IV Titration 304.906 46.214 Amount Norepinephrine 32 mg In 141.076 46.214 Sodium Chloride 0.9% 218 ml @ 0.44 MCG/KG/MIN 18. 954 mls/hr IV .[id number] [facility] Rx#:[id number] Sodium Ferric Gluconat- 100 Sucrose 125 mg In Sodium Chloride 0.9% 100 ml @ 100 mls/hr IVPB ONCE ONE Rx#:[id number] propofoL 1,000 mg In 63.83 Empty Bag 1 bag @ Titrate IV .Q0M [facility] Rx#: [id number] Tube Feeding 403 279 31 Other 600 400 Output: Urine 1775 995 50 Stool 150 100 ABP, PAP, CO, CI - Last Documented Arterial Blood Pressure 113/45 - Labs CBC & Chem 7: 01/16/22 05:18 01/16/22 05:18 Labs: Abnormal Lab Results - Last 24 Hours (Table) 01/15/22 01/15/22 01/15/22 Range/Units 11:30 17:45 21:28 RBC (4.30-5.90) m/uL Hgb (13.0-17.5) gm/dL Hct (39.0-53.0) % RDW (11.5-15.5) % Plt Count (150-450) k/uL Lymphocytes # (1.0-4.8) k/uL ABG HCO3 (21-25) mmol/L ABG Total CO2 (19-24) mmol/L ABG O2 Saturation (94-97) % Sodium (137-145) mmol/L Chloride (98-107) mmol/L BUN (9-20) mg/dL Creatinine (0.66-1.25) mg/dL Glucose (74-99) mg/dL POC Glucose (mg/dL) 301 H 299 H 278 H (75-99) mg/dL Calcium (8.4-10.2) mg/dL Crossmatch 01/15/22 01/16/22 01/16/22 Range/Units 23:55 00:03 04:55 RBC (4.30-5.90) m/uL Hgb (13.0-17.5) gm/dL Hct (39.0-53.0) % RDW (11.5-15.5) % Plt Count (150-450) k/uL Lymphocytes # (1.0-4.8) k/uL ABG HCO3 27 H (21-25) mmol/L ABG Total CO2 28 H (19-24) mmol/L ABG O2 Saturation 98.0 H (94-97) % Sodium (137-145) mmol/L Chloride (98-107) mmol/L BUN (9-20) mg/dL Creatinine (0.66-1.25) mg/dL Glucose (74-99) mg/dL POC Glucose (mg/dL) 195 H 210 H (75-99) mg/dL Calcium (8.4-10.2) mg/dL Crossmatch 01/16/22 01/16/22 01/16/22 Range/Units 05:12 05:18 05:18 RBC 2.17 L (4.30-5.90) m/uL Hgb 6.7 L* (13.0-17.5) gm/dL Hct 21.4 L (39.0-53.0) % RDW 16.2 H (11.5-15.5) % Plt Count 126 L (150-450) k/uL Lymphocytes # 0.3 L (1.0-4.8) k/uL ABG HCO3 (21-25) mmol/L ABG Total CO2 (19-24) mmol/L ABG O2 Saturation (94-97) % Sodium 146 H (137-145) mmol/L Chloride 116 H (98-107) mmol/L BUN 114 H* (9-20) mg/dL Creatinine 1.96 H (0.66-1.25) mg/dL Glucose 200 H (74-99) mg/dL POC Glucose (mg/dL) 210 H (75-99) mg/dL Calcium 8.0 L (8.4-10.2) mg/dL Crossmatch 01/16/22 Range/Units 06:37 RBC (4.30-5.90) m/uL Hgb (13.0-17.5) gm/dL Hct (39.0-53.0) % RDW (11.5-15.5) % Plt Count (150-450) k/uL Lymphocytes # (1.0-4.8) k/uL ABG HCO3 (21-25) mmol/L ABG Total CO2 (19-24) mmol/L ABG O2 Saturation (94-97) % Sodium (137-145) mmol/L Chloride (98-107) mmol/L BUN (9-20) mg/dL Creatinine (0.66-1.25) mg/dL Glucose (74-99) mg/dL POC Glucose (mg/dL) (75-99) mg/dL Calcium (8.4-10.2) mg/dL Crossmatch See Detail Microbiology - Last 24 Hours (Table) 01/11/22 16:39 Blood Culture - Preliminary Blood No Growth after 96 hours Assessment and Plan Plan: Assessment: 1. Acute kidney injury secondary to ATN secondary to septic shock and obstructive uropathy. Renal function stable. Creatinine 1.96 today. Nonoliguric. Elevated BUN secondary to steroids and possible bleed. 2. Strangulated parastomal hernia status post for a laparotomy with repair of hernia, small bowel resection with ileostomy on 01/06/2022. 3. History of bladder cancer status post cystectomy and ileal loop urostomy. 4. Pseudomonas bacteremia on antibiotics. 5. Metabolic acidosis secondary to acute kidney injury. Status post IV bicarb. Resolved. 6. A. fib with RVR maintained on Cardizem drip. 7. Mild hypernatremia from lack of oral water intake. 8. Volume overload. 9. Acute blood loss anemia. No active bleeding or nurse. Plan: Receiving tube feeds. Maintain water flushes. If extubated, start D5W at 70 mL an hour. Lasix 40 mg IV once today after blood transfusion completed. Wean FiO2. Avoid nephrotoxins. Continue to monitor renal function and urine output. I will give him a dose of IV DDAVP today.
--- NOTE | 2022-01-16 08:54 | XR ---
EXAMINATION TYPE: XR chest 1V portable DATE OF EXAM: 01/16/2022 COMPARISON: 01/15/2022 HISTORY: Shortness of breath TECHNIQUE: Single frontal view of the chest is obtained. FINDINGS: Right-sided PICC line seen overlying the right atrial SVC confluence. Additional right IJ central line seen with tip overlying the right atrium. Interstitial lung pattern again noted with bonnie ateral infiltrate and small effusion. Heart size stable. Atherosclerotic change aorta. No pneumothora x. IMPRESSION: Stable diffuse bilateral pleural-parenchymal changes correlate for diffuse pneumonia or CHF.
[2022-01-16] MEDS ORDERED: DESMOPRESSIN ACETATE 24 MCG in SODIUM CHLORIDE 0.9% 50 ML IVPB ONE (09:00)
[2022-01-16] MEDS ORDERED: HYDROCORTISONE SUCCINATE 100 MG/2 ML VIAL IV SCH (09:00)
[2022-01-16] MEDS: DILTIAZEM 125 MG in SODIUM CHLORIDE 0.9% 100 ML IV SCH (09:35)
[2022-01-16] MEDS: CHLORHEXIDINE GLUCONATE 15 ML CUP MUCOUS MEM SCH (09:36)
[2022-01-16] MEDS: AMIODARONE 200 MG TAB PO SCH ×2 (09:36→21:12)
[2022-01-16] MEDS: SCOPOLAMINE 1.5MG/72HR PATCH TRANSDERM SCH (09:37)
[2022-01-16] MEDS: INSULIN DETEMIR (LEVEMIR) 100 UNIT/ML SYR SQ SCH ×2 (09:44→20:57)
[2022-01-16] MEDS: PANTOPRAZOLE 40 MG/10 ML VIAL IVP SCH (09:44)
--- NOTE | 2022-01-16 09:46 | P.PN ---
Subjective Progress Note Date: 01/16/22 Principal diagnosis: Her stomal hernia containing small bowel demonstrating pneumobilia suggesting strangulation, status post repair This is a 72-year-old male patient with a known history of coronary artery disease with previous stent placement, diabetes mellitus, hypertension, hyperlipidemia, BPH, chronic and ongoing tobacco dependence. He also has a history of urostomy that was done at [facility] several years ago and previous bladder cancer. He had presented to the emergency room yesterday with complaints of abdominal painand distention. CAT scan of the abdomen revealed cyst addition for parastomal hernia which is obstructing the patient Werner conduit through the subcutaneous tissues. There is mild bilateral hydronephrosis. Parastomal hernia containing small bowel demonstrated pneumobilia suggesting strangulation small bowel with possible perforation. Subcutaneous gas which may represent superimposed infections secondary to the small bowel strangulation and possible perforation. White count 12.2. Hemoglobin 10.4. Sodium 138. Potassium 4.8. BUN 47. Creatinine 3.17. Glucose 252. Plasma lactic acid 2.2. Troponin 0.013. House virus by PCR not detected. He was taken to the operating room last evening and had undergone an exploratory laparotomy, repair of strangulated parastomal hernia, small bowel resection with ileostomy, repair of incisional hernia. Blood cultures preliminary revealing gram-negative bacilli. Lactic acid up to 4.9 today. The patient had issues with hypotension and tachycardia this morning. We're consulted for ICU management. He was transferred there per medicine. 1 L of fluid resuscitation was given. Current labs revealed WBC 2.6. Hemoglobin 11.2. Sodium 133. Potassium 5.5. Chloride 105. Bicarb 17. BUN 55. Creatinine 3.80. Glucose 305. currently on Zosyn. He is seen today in consultation. He is awake and alert. He is having some surgical site pain but denies any worsening shortness of breath. No cough or congestion. No fever. The patient is seen today 01/08/2022 in follow-up in the intensive care unit. He is currently sitting up in bed. More awake and alert today. His color is better. He did receive 4 L of fluid resuscitation yesterday. He is now requiring norepinephrine currently at 0.26 mcg/kg/m. He has 0.9% normal saline running at 125 ML's per hour. Mean arterial pressure 85 currently. He is tachycardic in the 120s. Sinus. Maintaining O2 saturation the high 90s on 2 L/m per nasal cannula. Chest x-ray continues to show interstitial changes in the lung bases. No pneumothorax. Suspect basilar atelectasis versus pneumonia and possible underlying interstitial lung disease. The patient denied having had COVID-19 infection. Blood culture is positive for pseudomonas aeruginosa. He is currently on Zosyn. White count 2.6. Hemoglobin 9.8. Sodium 138. Potassium 5.7. Bicarb 16. BUN 55. Creatinine 3.65. Glucose 140. Urinalysis with large amount of blood and high WBCs. Cultures pending. Arterial blood gases on 28% FiO2 revealed a PaO2 of 73, pCO2 38 and a pH of 7.22. He remains on DuoNeb inhalations, heparin for DVT prophylaxis, Protonix for GI prophylaxis. He remains nothing by mouth. There is minimal output of the ileostomy. Midline dressing dry and intact. Urostomy with adequate output. Currently in a 3.2 L positive balance Progress note dated 01/13/2022. 72-year-old male, again seen in room 261. The patient was initially admitted back on 01/06, for abdominal pain, and an incarcerated hernia. The patient went to the operating room on 01/06, for exploratory laparotomy and ileostomy. The patient was extubated successfully, but came to the intensive care unit on 01/07/2022, and was intubated on 01/07/2022. The patient remains on the mechanical ventilator. Blood cultures show evidence of Pseudomonas. Currently, he's on meropenem and fluconazole. He will get some Lasix IV push today, as he is quite edematous. Current ventilator settings include the volume assist control mode, rate 20, tidal volume 500, FiO2 40%, and PEEP of 6. Arterial blood gases show pO2 101, pCO2 42, and pH 7.45. The patient remains on norepinephrine at 25 mcg/m, propofol at 35 mcg/kg/m, TPN at 60 mL an hour, tube feedings with Nepro at 20 mL an hour, and saline at 25 mL an hour. Because of the ongoing use of norepinephrine, I asked the nurses to draw a stat TSH and random cortisol. Current laboratory data includes a sodium 143, potassium 3.6, chlorides 112, CO2 27, anion gap 4, BUN 73, and creatinine 2.09. Blood cultures from January 06 and January 07 both show evidence of pseudomonas aeruginosa. Chest x-ray shows diffuse bilateral infiltrates. The patient is seen today 01/14/2022 in follow-up in the intensive care unit. He remains intubated and on mechanical ventilator. Currently on assist control mode at a rate of 20, tidal volume 500, FiO2 40% and a PEEP of 6. Morning blood gases revealed a PaO2 of 96, pCO2 38, pH 7.46. He is still requiring norepinephrine at 24 mcg/kg/m. He is on a Cardizem drip at 5 mg an hour. He is being nourished with TPN at 60 ML's per hour and 0.9 normal saline at a 20 ML's per hour. He is being transitioned to Vital HP. Today's chest x-ray shows slight improvement. There is continued bilateral patchy infiltrates mostly in the lower lobes. Nasogastric tube remains in place. Right central line remains in place. Initial blood cultures were positive for pseudomonas aeruginosa. Subsequent blood cultures are pending. Continued on meropenem and fluconazole. White count 11.4. Hemoglobin 8.4. Platelet count 90,000. Sodium 142. Potassium 4.1. Chloride 109. BUN 84. Creatinine 2.01. Blood glucose 299. Serum cortisol level is 22. He remains on DuoNeb inhalations. Currently in sinus rhythm. Having issues with paroxysmal atrial fibrillation which occurred yesterday during his daily interruption of sedation. The patient is seen today 01/15/2022 in follow-up in the intensive care unit. He remains intubated on the mechanical ventilator. Current settings are assist-control mode at a rate of 20, tidal volume 500, FiO2 40% and a PEEP of 6. Morning blood gases revealed a PaO2 of 100, pCO2 40, pH 7.43. He is still requiring norepinephrine at 0.16 mcg/kg/m. He's on Cardizem drip at 5 mg per hour. Sedated with propofol at 25 mcg/mg/m. He is being nourished with vital HP at 31 ML's per hour which is goal. His ostomies are functioning. He is on antibiotics in the form of meropenem and fluconazole. He did fail weaning trials yesterday. He develops atrial fibrillation with rapid ventricular response and increased respiratory rate. He is currently in sinus rhythm. He was given Lasix 80 mg IVP 1 this morning per nephrology. Free water flushes were increased as well. Blood cultures were positive for Proprionibacterium species. Previous cultures positive for pseudomonas aeruginosa. Sputum culture positive for Vesta. White count 9.7. Hemoglobin 7.8. Platelets 124,000. Sodium 144. Potassium 4.6. BUN 98. Creatinine 2.10. Glucose 230. He is currently in a -715 ML balance. He remains on Solu-Cortef, bronchodilators, amiodarone. Blood glucose controlled with Levemir. Patient is seen today 01/16/2022 in the intensive care unit. Blood gases revealed a PaO2 of 108, pCO2 39 and a pH of 7.44 on 40% FiO2. He had good weaning parameters and was extubated earlier this morning. He is currently on 6 L high flow nasal cannula. He is maintaining O2 saturation in the upper 90s. Currently afebrile. Hemodynamically stable. His ventricular rate is well controlled. He is still on Cardizem drip at 5 mg per hour. He's been restarted on Eliquis 5 mg twice a day. He is awake. Still quite weak. He has a weak cough. His heart rate is better controlled. He's on Cardizem drip at 5 mg per hour. Amiodarone 400 mg by mouth twice a day. He's been resumed on Eliquis 5 mg twice a day. He is continued on meropenem and fluconazole. Earlier blood cultures are positive for pseudomonas aeruginosa. Follow-up blood cultures are revealing no growth thus far. 0.9 normal saline at KVO. He is continued on Solu-Cortef 50 mg IV every 6 hours. Levemir for blood glucose control. He remains on bronchodilators. Chest x-ray continues to show diffuse bilateral patchy infiltrates. White count 6.4. Hemoglobin 6.7. Platelet count 127,000. Sodium 146. Potassium 3.9. Bicarb 25. BUN 114. Creatinine 1.96. Glucose 200. He is currently in a positive balance 183 ML's. Objective - Vital Signs Vital signs: Vital Signs Temp 98.6 F 01/16/22 08:00 Pulse 83 01/16/22 09:00 Resp 32 H 01/16/22 09:00 BP 112/32 01/16/22 09:00 Pulse Ox 98 02/17/22 09:00 Intake & Output 01/15/22 01/16/22 01/16/22 18:59 06:59 18:59 Intake Total 1590.906 889.214 110 Output Total 1925 1095 200 Balance -334.094 -205.786 -90 Weight 97.2 kg 96.3 kg Intake: IV 283 164 48 .9 NS 25 140 30 Cardizem 5 Fluconazole in NaCl,Iso- 50 Osm 100 mg In Saline 1 50ml.bag @ 50 mls/hr IVPB DAILY@1600 [facility] Rx#: [id number] Meropenem 1 gm In Sodium 200 Chloride 0.9% 100 ml @ 33 .3 mls/hr IVPB Q8HR [facility] Rx#:[id number] Pressure bag 3 24 18 Intake, IV Titration 304.906 46.214 Amount Norepinephrine 32 mg In 141.076 46.214 Sodium Chloride 0.9% 218 ml @ 0.44 MCG/KG/MIN 18. 954 mls/hr IV .[id number] [facility] Rx#:[id number] Sodium Ferric Gluconat- 100 Sucrose 125 mg In Sodium Chloride 0.9% 100 ml @ 100 mls/hr IVPB ONCE ONE Rx#:[id number] propofoL 1,000 mg In 63.83 Empty Bag 1 bag @ Titrate IV .Q0M [facility] Rx#: [id number] Tube Feeding 403 279 62 Other 600 400 Output: Urine 1775 995 200 Stool 150 100 ABP, PAP, CO, CI - Last Documented Arterial Blood Pressure 107/47 - Exam GENERAL EXAM: Awake, alert quite weak and debilitated 72-year-old gentleman, on 6 L high flow nasal cannula, fairly comfortable in no apparent distress. HEAD: Normocephalic. EYES: Normal reaction of pupils, equal size. NOSE: Clear with pink turbinates. THROAT: Oral endotracheal and gastric tube secured in place. No erythema or exudates. NECK: No masses, no JVD. CHEST: No chest wall deformity. LUNGS: Equal air entry with crackles in the posterior bases. CVS: S1 and S2 normal with no audible murmur, regular rhythm. ABDOMEN: Urostomy and ileostomy both functioning.. SPINE: No scoliosis or deformity SKIN: No rashes CENTRAL NERVOUS SYSTEM: No focal deficits, tone is normal in all 4 extremities. EXTREMITIES: There is no peripheral edema. No clubbing, no cyanosis. Peripheral pulses are intact. - Labs CBC & Chem 7: 01/16/22 05:18 01/16/22 05:18 Labs: Abnormal Lab Results - Last 24 Hours (Table) 01/15/22 01/15/22 01/15/22 Range/Units 11:30 17:45 21:28 RBC (4.30-5.90) m/uL Hgb (13.0-17.5) gm/dL Hct (39.0-53.0) % RDW (11.5-15.5) % Plt Count (150-450) k/uL Lymphocytes # (1.0-4.8) k/uL ABG HCO3 (21-25) mmol/L ABG Total CO2 (19-24) mmol/L ABG O2 Saturation (94-97) % Sodium (137-145) mmol/L Chloride (98-107) mmol/L BUN (9-20) mg/dL Creatinine (0.66-1.25) mg/dL Glucose (74-99) mg/dL POC Glucose (mg/dL) 301 H 299 H 278 H (75-99) mg/dL Calcium (8.4-10.2) mg/dL Crossmatch 01/15/22 01/16/22 01/16/22 Range/Units 23:55 00:03 04:55 RBC (4.30-5.90) m/uL Hgb (13.0-17.5) gm/dL Hct (39.0-53.0) % RDW (11.5-15.5) % Plt Count (150-450) k/uL Lymphocytes # (1.0-4.8) k/uL ABG HCO3 27 H (21-25) mmol/L ABG Total CO2 28 H (19-24) mmol/L ABG O2 Saturation 98.0 H (94-97) % Sodium (137-145) mmol/L Chloride (98-107) mmol/L BUN (9-20) mg/dL Creatinine (0.66-1.25) mg/dL Glucose (74-99) mg/dL POC Glucose (mg/dL) 195 H 210 H (75-99) mg/dL Calcium (8.4-10.2) mg/dL Crossmatch 01/16/22 01/16/22 01/16/22 Range/Units 05:12 05:18 05:18 RBC 2.17 L (4.30-5.90) m/uL Hgb 6.7 L* (13.0-17.5) gm/dL Hct 21.4 L (39.0-53.0) % RDW 16.2 H (11.5-15.5) % Plt Count 126 L (150-450) k/uL Lymphocytes # 0.3 L (1.0-4.8) k/uL ABG HCO3 (21-25) mmol/L ABG Total CO2 (19-24) mmol/L ABG O2 Saturation (94-97) % Sodium 146 H (137-145) mmol/L Chloride 116 H (98-107) mmol/L BUN 114 H* (9-20) mg/dL Creatinine 1.96 H (0.66-1.25) mg/dL Glucose 200 H (74-99) mg/dL POC Glucose (mg/dL) 210 H (75-99) mg/dL Calcium 8.0 L (8.4-10.2) mg/dL Crossmatch 01/16/22 Range/Units 06:37 RBC (4.30-5.90) m/uL Hgb (13.0-17.5) gm/dL Hct (39.0-53.0) % RDW (11.5-15.5) % Plt Count (150-450) k/uL Lymphocytes # (1.0-4.8) k/uL ABG HCO3 (21-25) mmol/L ABG Total CO2 (19-24) mmol/L ABG O2 Saturation (94-97) % Sodium (137-145) mmol/L Chloride (98-107) mmol/L BUN (9-20) mg/dL Creatinine (0.66-1.25) mg/dL Glucose (74-99) mg/dL POC Glucose (mg/dL) (75-99) mg/dL Calcium (8.4-10.2) mg/dL Crossmatch See Detail Microbiology - Last 24 Hours (Table) 01/11/22 16:39 Blood Culture - Preliminary Blood No Growth after 96 hours Assessment and Plan Assessment: 1 Acute abdominal pain secondary to parastomal hernia containing small bowel demonstrating pneumobilia suggesting strangulation small bowel with possible perforation. Subcutaneous gas which may represent superimposed infection. No o rganizing fluid collection of the time to suggest abscess. Status post exploratory laparotomy, repair of strangulated parastomal hernia, small bowel resection with ileostomy, repair of incisional hernia performed on 01/06/2022. 2 Sepsis with bacteremia secondary to pseudomonas aeruginosa 3 Acute hypoxemic respiratory failure secondary to above requiring prolonged intubation. Extubated on 01/16/2022. Currently on 6 L high flow nasal cannula. 4 Lactic acidosis, resolved 5 Acute renal failure, current creatinine 1.96 6 Hyperkalemia secondary to above, current potassium 3.9 7 History of bladder cancer with previous urostomy. 8 Diabetes mellitus with subsequent hyperglycemia 9 Hyperlipidemia 10 BPH 11 Visual disorder 12 Coronary artery disease with previous stent placement 13 Chronic tobacco dependence 14 Anemia, current hemoglobin 6.7 15 Thrombocytopenia, improving, current platelet count 126,000 Plan: The patient was seen and evaluated Chest x-ray, ABGs and labs reviewed Extubated this morning to 6 L high flow nasal cannula Titrate the FiO2 as tolerated Oral suctioning as needed, continues with a weak cough Continued on meropenem and fluconazole Decrease hydrocortisone 50 mg IVP every 12 hours Weaned off norepinephrine Continue vital HP for nutritional support Remains on a Cardizem drip. Anticoagulanted with Eliquis We will continue to follow and make further recommendations based on his clinical status Critical care time 36 minutes I, the cosigning physician, performed a history & physical examination of the patient. Lungs sounds with crackles in the posterior bases. Maintaining good O2 saturations in the 90s on 6 L high flow nasal cannula. I discussed the assessment and plan of care with my nurse practitioner, Cony Siegel. I attest to the above note as dictated by her.
[2022-01-16] MEDS: DEXTROSE 5% IN WATER 1,000 ML IV SCH (10:37)
[2022-01-16 11:51] LABS: Glucose,Whole Blood 244 mg/dL (75-99)
[2022-01-16] MEDS: NOREPINEPHRINE 32 MG in SODIUM CHLORIDE 0.9% 218 ML IV SCH (12:48)
--- NOTE | 2022-01-16 12:59 | P.PN ---
Subjective Progress Note Date: 01/16/22 This is a 72-year-old gentleman with history of coronary artery disease with previous PCI, diabetes mellitus, hypertension and hyperlipidemia and also history of bladder cancer with urostomy. Patient is status post surgery for perforated viscus. Patient is also intubated. His echocardiogram showed an ej ection fraction about 35-40% with global hypokinesia without any significant valvular abnormalities. Patient had an episode of A. fib but converted back to sinus rhythm. In the rhythm appears to be mostly is a sinus rhythm with APCs are multifocal atrial rhythm at this time. 01/14/2022: This patient is status post surgery for possible perforated viscus. Patient also has sepsis. We're following patient because of intermittent atrial fibrillation. Patient is currently on IV Cardizem 5 mg daily is maintaining sinus rhythm. His her multiple medications including antibiotics. Still on mechanical ventilator. His echo [place] showed ejection fraction 35-40%. We'll continue current management. We'll follow. 01/15/2022: This patient with history of coronary artery disease, diabetes, hy pertension and hypercholesterolemia who was admitted to the abdominal pain and was noted. Strength ablation of the small bowel in the parastomal hernia. Patient underwent surgical procedure including small bowel resection and ileostomy. Patient is also being treated for sepsis and bacteremia and also hypertension. patient had episodes of atrial fibrillation and was treated with amiodarone. Patient is on IV Cardizem and maintaining sinus rhythm. Patient had thrombocytopenia and also anemia. Platelet count is improving and seemed to be around 1 20,000. However, his hemoglobin dropped to 7.8. Patient needs to go on and decortication therapy because of his coronary artery disease and imp aired LV function. He was okay with the surgical team, patient to be constricted for Eliquis 5 mg by mouth twice a day. However, his platelet counts and hemoglobin 8 followed closely. 01/16/2022: This patient is extubated today. Is awake but seemed to be weak and frail. Patient is afebrile. So far his maintaining sinus rhythm. He is on anticoagulation therapy is also on IV Cardizem. We'll switch to by mouth Cardizem. He is also on amiodarone 400 mg by mouth twice a day. We will taper the amiodarone to 200 mg by mouth twice a day from tomorrow. Chest x-ray shows bilateral infiltrates. Apparently blood cultures have been negative. His hemoglobin dropped to 6.8. Surgical team is following. Plan is to repeat hemoglobin in the afternoon. If hemoglobin evidence for the, may have to discontinue anticoagulation. Further examination depend upon clinical course Objective - Vital Signs Vital signs: Vital Signs Temp 98.6 F 01/16/22 08:00 Pulse 84 01/16/22 11:25 Resp 42 H 01/16/22 11:00 BP 113/50 01/16/22 11:00 Pulse Ox 98 01/16/22 11:00 Intake & Output 01/15/22 01/16/22 01/16/22 18:59 06:59 18:59 Intake Total 0104.199 3959.214 422 Output Total 1925 1095 475 Balance -334.094 -80.786 -53 Weight 97.2 kg 96.3 kg Intake: IV 283 164 360 .9 NS 25 140 40 Cardizem 5 Desmopressin Acetate 24 50 mcg In Sodium Chloride 0. 9% 50 ml @ 200 mls/hr IVPB ONCE ONE Rx#: [id number] Dextrose 5% in Water 1, 140 000 ml @ 70 mls/hr IV . [id number] [facility] Rx#:[id number] Fluconazole in NaCl,Iso- 50 Osm 100 mg In Saline 1 50ml.bag @ 50 mls/hr IVPB DAILY@1600 [facility] Rx#: [id number] Meropenem 1 gm In Sodium 200 100 Chloride 0.9% 100 ml @ 33 .3 mls/hr IVPB Q8HR [facility] Rx#:[id number] Pressure bag 3 24 30 Intake, IV Titration 304.906 171.214 Amount Diltiazem 125 mg In 125 Sodium Chloride 0.9% 100 ml @ 5 MG/HR 5 mls/hr IV .Q24H [facility] Rx#:[id number] Norepinephrine 32 mg In 141.076 46.214 Sodium Chloride 0.9% 218 ml @ 0.44 MCG/KG/MIN 18. 954 mls/hr IV .[id number] [facility] Rx#:[id number] Sodium Ferric Gluconat- 100 Sucrose 125 mg In Sodium Chloride 0.9% 100 ml @ 100 mls/hr IVPB ONCE ONE Rx#:[id number] propofoL 1,000 mg In 63.83 Empty Bag 1 bag @ Titrate IV .Q0M [facility] Rx#: [id number] Tube Feeding 403 279 62 Other 600 400 Output: Urine 1775 995 475 Stool 150 100 ABP, PAP, CO, CI - Last Documented Arterial Blood Pressure 103/46 - Exam GENERAL EXAM: Patient is intubated and sedated HEENT: Normocephalic. Normal reaction of pupils, equal size, normal range of extraocular motion. No erythema or exudates in the throat. NECK: No masses, no nuchal rigidity. CHEST: No chest wall deformity. LUNGS: Diminished air exchange HEART: S1 and S2 normal . Distant heart sounds ABDOMEN: No hepatosplenomegaly, normal bowel sounds, no guarding or rigidity. SKIN: No rashes CENTRAL NERVOUS SYSTEM: Deferred EXTREMITIES: No cyanosis, clubbing or edema. - Labs CBC & Chem 7: 01/16/22 05:18 01/16/22 05:18 Labs: Abnormal Lab Results - Last 24 Hours (Table) 01/15/22 01/15/22 01/15/22 Range/Units 17:45 21:28 23:55 RBC (4.30-5.90) m/uL Hgb (13.0-17.5) gm/dL Hct (39.0-53.0) % RDW (11.5-15.5) % Plt Count (150-450) k/uL Lymphocytes # (1.0-4.8) k/uL ABG HCO3 (21-25) mmol/L ABG Total CO2 (19-24) mmol/L ABG O2 Saturation (94-97) % Sodium (137-145) mmol/L Chloride (98-107) mmol/L BUN (9-20) mg/dL Creatinine (0.66-1.25) mg/dL Glucose (74-99) mg/dL POC Glucose (mg/dL) 299 H 278 H 195 H (75-99) mg/dL Calcium (8.4-10.2) mg/dL Crossmatch 01/16/22 01/16/22 01/16/22 Range/Units 00:03 04:55 05:12 RBC (4.30-5.90) m/uL Hgb (13.0-17.5) gm/dL Hct (39.0-53.0) % RDW (11.5-15.5) % Plt Count (150-450) k/uL Lymphocytes # (1.0-4.8) k/uL ABG HCO3 27 H (21-25) mmol/L ABG Total CO2 28 H (19-24) mmol/L ABG O2 Saturation 98.0 H (94-97) % Sodium (137-145) mmol/L Chloride (98-107) mmol/L BUN (9-20) mg/dL Creatinine (0.66-1.25) mg/dL Glucose (74-99) mg/dL POC Glucose (mg/dL) 210 H 210 H (75-99) mg/dL Calcium (8.4-10.2) mg/dL Crossmatch 01/16/22 01/16/22 01/16/22 Range/Units 05:18 05:18 06:37 RBC 2.17 L (4.30-5.90) m/uL Hgb 6.7 L* (13.0-17.5) gm/dL Hct 21.4 L (39.0-53.0) % RDW 16.2 H (11.5-15.5) % Plt Count 126 L (150-450) k/uL Lymphocytes # 0.3 L (1.0-4.8) k/uL ABG HCO3 (21-25) mmol/L ABG Total CO2 (19-24) mmol/L ABG O2 Saturation (94-97) % Sodium 146 H (137-145) mmol/L Chloride 116 H (98-107) mmol/L BUN 114 H* (9-20) mg/dL Creatinine 1.96 H (0.66-1.25) mg/dL Glucose 200 H (74-99) mg/dL POC Glucose (mg/dL) (75-99) mg/dL Calcium 8.0 L (8.4-10.2) mg/dL Crossmatch See Detail 01/16/22 Range/Units 11:50 RBC (4.30-5.90) m/uL Hgb (13.0-17.5) gm/dL Hct (39.0-53.0) % RDW (11.5-15.5) % Plt Count (150-450) k/uL Lymphocytes # (1.0-4.8) k/uL ABG HCO3 (21-25) mmol/L ABG Total CO2 (19-24) mmol/L ABG O2 Saturation (94-97) % Sodium (137-145) mmol/L Chloride (98-107) mmol/L BUN (9-20) mg/dL Creatinine (0.66-1.25) mg/dL Glucose (74-99) mg/dL POC Glucose (mg/dL) 244 H (75-99) mg/dL Calcium (8.4-10.2) mg/dL Crossmatch Microbiology - Last 24 Hours (Table) 01/11/22 16:39 Blood Culture - Preliminary Blood No Growth after 96 hours Assessment and Plan (1) Atrial fibrillation Current Visit: Yes Status: Acute Code(s): I48.91 - UNSPECIFIED ATRIAL FIBRILLATION SNOMED Code(s): 30939943 (2) Bowel perforation Current Visit: Yes Status: Acute Code(s): K63.1 - PERFORATION OF INTESTINE (NONTRAUMATIC) SNOMED Code(s): 13290267 (3) Chronic renal failure Current Visit: Yes Status: Acute Code(s): N18.9 - CHRONIC KIDNEY DISEASE, UNSPECIFIED SNOMED Code(s): 76614281 (4) Strangulated hernia of abdominal wall Current Visit: Yes Status: Acute Code(s): K43.6 - OTHER AND UNSP VENTRAL HERNIA WITH OBSTRUCTION, W/O GANGRENE SNOMED Code(s): 38938438 Plan: Patient is successfully extubated. Remained in sinus rhythm. On amiodarone 400 mg by mouth twice a day which will be tapered down to 200 mg by mouth twice a day from tomorrow. We'll also initiate him on by mouth Cardizem and discontinue IV Cardizem. Further recommendations depend upon the clinical course
--- NOTE | 2022-01-16 15:13 | P.PN ---
Subjective Progress Note Date: 01/16/22 CHIEF COMPLAINT: Strangulated parastomal hernia HISTORY OF PRESENT ILLNESS: Patient is status post Exploratory laparotomy, Repair of strangulated parastomal hernia, Small bowel resection with ileostomy and Repair of incisional hernia. POD #10. Patient has been extubated this morning. He is currently on 6 L high flow oxygen satting 99%. Patient has been weaned off the norepinephrine. He was started on Eliquis for anticoagulation for his atrial fibrillation. Patient's ileostomy is functioning. He is receiving tube feeds for nutrition support. Afebrile. WBC 6.4 hemoglobin is down to 6.7 he is receiving a unit of blood today. Patient did receive a dose of IV iron yesterday. Patient seen and examined with Dr. allen PHYSICAL EXAM: VITAL SIGNS: Reviewed. GENERAL: Well-developed in no acute distress. HEENT: No sclera icterus. Extraocular movements grossly intact. Moist buccal mucosa. Head is atraumatic, normocephalic. ABDOMEN: Soft. Abdominal incision site clean dry and intact. 2 areas are open with gauze placed. There is a small amount purulent drainage noted at these 2 areas. Ileostomy liquidy brown stool. Urostomy stoma continues become less dusky and more pink. Urine is clear NEUROLOGIC: Intubated and sedated ASSESSMENT: 1. Strangulated parastomal hernia and incisional hernia status post Exploratory laparotomy, Repair of strangulated parastomal hernia, Small bowel resection with ileostomy and Repair of incisional hernia 2. Abdominal incision infection 3. History of bladder cancer with urostomy 4. Acute kidney injury 5. Sepsis and septic shock 6. Bacteremia with Pseudomonas 7. New onset of A. fib PLAN: -Continue local wound care -Continue ICU management -Continue supportive care -Continue antibiotics per ID -DVT prophylaxis subcu heparin and GI prophylaxis Protonix Physician Boat Dispatcher note has been reviewed by physician. Signing provider agrees with the documented findings, assessment, and plan of care. Objective - Vital Signs Vital signs: Vital Signs Temp 98.7 F 01/16/22 13:00 Pulse 96 01/16/22 15:04 Resp 30 H 01/16/22 14:00 BP 111/53 01/16/22 14:00 Pulse Ox 99 01/16/22 14:00 Intake & Output 01/15/22 01/16/22 01/16/22 18:59 06:59 18:59 Intake Total 7772.534 9456.214 680 Output Total 1925 1095 875 Balance -334.094 -80.786 -195 Weight 97.2 kg 96.3 kg Intake: IV 283 164 618 .9 NS 25 140 70 Cardizem 5 Desmopressin Acetate 24 50 mcg In Sodium Chloride 0. 9% 50 ml @ 200 mls/hr IVPB ONCE ONE Rx#: [id number] Dextrose 5% in Water 1, 350 000 ml @ 70 mls/hr IV . [id number] [facility] Rx#:[id number] Fluconazole in NaCl,Iso- 50 Osm 100 mg In Saline 1 50ml.bag @ 50 mls/hr IVPB DAILY@1600 [facility] Rx#: [id number] Meropenem 1 gm In Sodium 200 100 Chloride 0.9% 100 ml @ 33 .3 mls/hr IVPB Q8HR [facility] Rx#:[id number] Pressure bag 3 24 48 Intake, IV Titration 304.906 171.214 Amount Diltiazem 125 mg In 125 Sodium Chloride 0.9% 100 ml @ 5 MG/HR 5 mls/hr IV .Q24H [facility] Rx#:[id number] Norepinephrine 32 mg In 141.076 46.214 Sodium Chloride 0.9% 218 ml @ 0.44 MCG/KG/MIN 18. 954 mls/hr IV .[id number] [facility] Rx#:[id number] Sodium Ferric Gluconat- 100 Sucrose 125 mg In Sodium Chloride 0.9% 100 ml @ 100 mls/hr IVPB ONCE ONE Rx#:[id number] propofoL 1,000 mg In 63.83 Empty Bag 1 bag @ Titrate IV .Q0M [facility] Rx#: [id number] Tube Feeding 403 279 62 Other 600 400 Output: Urine 1775 995 875 Stool 150 100 ABP, PAP, CO, CI - Last Documented Arterial Blood Pressure 101/44 - Labs CBC & Chem 7: 01/16/22 05:18 01/16/22 05:18 Labs: Abnormal Lab Results - Last 24 Hours (Table) 01/15/22 01/15/22 01/15/22 Range/Units 17:45 21:28 23:55 RBC (4.30-5.90) m/uL Hgb (13.0-17.5) gm/dL Hct (39.0-53.0) % RDW (11.5-15.5) % Plt Count (150-450) k/uL Lymphocytes # (1.0-4.8) k/uL ABG HCO3 (21-25) mmol/L ABG Total CO2 (19-24) mmol/L ABG O2 Saturation (94-97) % Sodium (137-145) mmol/L Chloride (98-107) mmol/L BUN (9-20) mg/dL Creatinine (0.66-1.25) mg/dL Glucose (74-99) mg/dL POC Glucose (mg/dL) 299 H 278 H 195 H (75-99) mg/dL Calcium (8.4-10.2) mg/dL Crossmatch 01/16/22 01/16/22 01/16/22 Range/Units 00:03 04:55 05:12 RBC (4.30-5.90) m/uL Hgb (13.0-17.5) gm/dL Hct (39.0-53.0) % RDW (11.5-15.5) % Plt Count (150-450) k/uL Lymphocytes # (1.0-4.8) k/uL ABG HCO3 27 H (21-25) mmol/L ABG Total CO2 28 H (19-24) mmol/L ABG O2 Saturation 98.0 H (94-97) % Sodium (137-145) mmol/L Chloride (98-107) mmol/L BUN (9-20) mg/dL Creatinine (0.66-1.25) mg/dL Glucose (74-99) mg/dL POC Glucose (mg/dL) 210 H 210 H (75-99) mg/dL Calcium (8.4-10.2) mg/dL Crossmatch 01/16/22 01/16/22 01/16/22 Range/Units 05:18 05:18 06:37 RBC 2.17 L (4.30-5.90) m/uL Hgb 6.7 L* (13.0-17.5) gm/dL Hct 21.4 L (39.0-53.0) % RDW 16.2 H (11.5-15.5) % Plt Count 126 L (150-450) k/uL Lymphocytes # 0.3 L (1.0-4.8) k/uL ABG HCO3 (21-25) mmol/L ABG Total CO2 (19-24) mmol/L ABG O2 Saturation (94-97) % Sodium 146 H (137-145) mmol/L Chloride 116 H (98-107) mmol/L BUN 114 H* (9-20) mg/dL Creatinine 1.96 H (0.66-1.25) mg/dL Glucose 200 H (74-99) mg/dL POC Glucose (mg/dL) (75-99) mg/dL Calcium 8.0 L (8.4-10.2) mg/dL Crossmatch See Detail 01/16/22 Range/Units 11:50 RBC (4.30-5.90) m/uL Hgb (13.0-17.5) gm/dL Hct (39.0-53.0) % RDW (11.5-15.5) % Plt Count (150-450) k/uL Lymphocytes # (1.0-4.8) k/uL ABG HCO3 (21-25) mmol/L ABG Total CO2 (19-24) mmol/L ABG O2 Saturation (94-97) % Sodium (137-145) mmol/L Chloride (98-107) mmol/L BUN (9-20) mg/dL Creatinine (0.66-1.25) mg/dL Glucose (74-99) mg/dL POC Glucose (mg/dL) 244 H (75-99) mg/dL Calcium (8.4-10.2) mg/dL Crossmatch Microbiology - Last 24 Hours (Table) 01/11/22 16:39 Blood Culture - Preliminary Blood No Growth after 96 hours
--- NOTE | 2022-01-16 15:35 | P.PN ---
Subjective Progress Note Date: 01/16/22 Xavier Langford is a 72 yo M with PMH of bladder cancer s/p cystectomy and urostomy, CAD, T2DM, who presented to the ED complaining of worsening abdominal pain and distention. CT on presentation showed large parastomal hernia obstructing his ileal conduit and concern for strangulation and possible perforation. Initial WBC 12.2. Hemoglobin 10.4. Sodium 138. Potassium 4.8. BUN 47. Creatinine 3.17. Glucose 252. Plasma lactic acid 2.2, trop negative. Pt underwent exploratory laparotomy, repair of strangulated parastomal hernia, small bowel resection with ileostomy, repair of incisional hernia. Today his labs reflect drop in WBC to 2.6, Potassium 6.1, Cr 3.8. Blood cultures preliminary revealing gram-negative bacilli. 01/08/22 Tachycardic, heart rates in the 120s to 130s, tachypneic.Maintained on Zo syn, blood culture reporting pseudomonas aeruginosa . Urine culture pending. Currently afebrile. Maintaining O2 sats in the high 90s on 2 L nasal cannula.Maintained on IV fluid hydration, and Levophed. Good urine output. Creatinine decreased to 3.65. ABGs reflecting metabolic acidosis, bicarb drip initiated. Complains of abdominal pain, greater on the right. Blood sugars controlled on low-dose Levemir. 01/09/2022 Developed atrial fibrillation with RVR in addition to respiratory distress requiring intubation and antiarrhythmics last night. Currently on FiO2 40%/+8 of PEEP. Maintained on fentanyl, bicarb, diprovan, amiodarone, vasopressin and the Levophed drips. Telemetry currently sinus rhythm .Continues on Zosyn for Pseudomonas bacteremia. Urine cultures negative. Sputum culture pending. Multiple fluid boluses yesterday, chest x-ray this morning reporting possible pneumonia, CHF, interstitial lung disease. Afebrile, T-max 99.4, normal WBC. Hemoglobin 8.8, platelets 135. Creatinine trending down, 3.15,Magnesium 1.6, nephrology following. 01/10/22 Remains vent dependent, FiO2 40%/+8 peep. Chest x-ray reporting stable bilateral infiltrate and pleural effusion, possible CHF superimposed on background of chronic interstitial pulmonary fibrosis and COPD, possible un derlying pneumonia. Telemetry sinus rhythm. 2-D echo completed, results pending .Maintained on bicarb, fentanyl, vasopressin, Levophed, diprovan drips. Hemoglobin 8.6 Creatinine continues to improve down to 2.72. T-max 99.8, WBC 4.5. Continues on Zosyn. 01/13/2010 remains vent dependent, FiO2 40%/+6 of PEEP. Chest x-ray pending. Maintained on diprovan, Levophed drips. T-max 100.1. Pseudomonas bacteremia suspect related to the abdomen. Maintained on meropenem, fluconazole. Preliminary repeat blood cultures currently reporting no growth after 24 hours. BUN 73, creatinine 2.09. Received a dose of Lasix today-generalized edema. Continues on TPN, tube feeds. 01/14/2022 vent dependent, FiO2 40%/+6 of PEEP. Chest x-ray reporting slight improvement. Last night developed atrial fibrillation with RVR, placed on Cardizem drip. Currently on sedation holiday with diprovan temporarily off. Continues to require pressor support with Levophed. Maintained on TPN ,blood sugars elevated. T-max 100.3, WBC 11.4, repeat preliminary blood cultures reporting no growth after 48 hours. 01/15/2022 remains vent dependent with FiO2 40%/+6 of PEEP. Maintained on Cardizem, Levophed and Diprovan drips. Failed weaning trials yesterday. 01/16/2022 remained off of sedation 24 hours with good weaning parameters, extubated this morning.Levophed has been off early a.m.Maintaining O2 sats in the 90s on 6 L high flow nasal cannula. Audible loose congestion,weak cough,scopolamine patch added to med regimen. Chest x-ray reporting stable diffuse bilateral pleural parenchymal changes.telemetry sinus rhythm.Continues on Cardizem drip,oral amiodarone with Eliquis resumed.hemoglobin 6.7, no blood t ransfusion at this time with repeat hemoglobin this afternoon as per surgery. Sodium 146,BUN 114, creatinine 1.96;DDAVP and IV fluids adjusted to D5 /0.45 as per nephrology.continues on meropenem and fluconazole,repeat blood culture report no growth after 96 hours. Objective - Vital Signs Vital signs: Vital Signs Temp 98.7 F 01/16/22 13:00 Pulse 96 01/16/22 15:04 Resp 30 H 01/16/22 14:00 BP 111/53 01/16/22 14:00 Pulse Ox 99 01/16/22 14:00 Intake & Output 01/15/22 01/16/22 01/16/22 18:59 06:59 18:59 Intake Total 3005.605 9361.214 680 Output Total 1925 1095 875 Balance -334.094 -80.786 -195 Weight 97.2 kg 96.3 kg Intake: IV 283 164 618 .9 NS 25 140 70 Cardizem 5 Desmopressin Acetate 24 50 mcg In Sodium Chloride 0. 9% 50 ml @ 200 mls/hr IVPB ONCE ONE Rx#: [id number] Dextrose 5% in Water 1, 350 000 ml @ 70 mls/hr IV . [id number] [facility] Rx#:[id number] Fluconazole in NaCl,Iso- 50 Osm 100 mg In Saline 1 50ml.bag @ 50 mls/hr IVPB DAILY@1600 [facility] Rx#: [id number] Meropenem 1 gm In Sodium 200 100 Chloride 0.9% 100 ml @ 33 .3 mls/hr IVPB Q8HR [facility] Rx#:[id number] Pressure bag 3 24 48 Intake, IV Titration 304.906 171.214 Amount Diltiazem 125 mg In 125 Sodium Chloride 0.9% 100 ml @ 5 MG/HR 5 mls/hr IV .Q24H [facility] Rx#:[id number] Norepinephrine 32 mg In 141.076 46.214 Sodium Chloride 0.9% 218 ml @ 0.44 MCG/KG/MIN 18. 954 mls/hr IV .[id number] [facility] Rx#:[id number] Sodium Ferric Gluconat- 100 Sucrose 125 mg In Sodium Chloride 0.9% 100 ml @ 100 mls/hr IVPB ONCE ONE Rx#:[id number] propofoL 1,000 mg In 63.83 Empty Bag 1 bag @ Titrate IV .Q0M [facility] Rx#: [id number] Tube Feeding 403 279 62 Other 600 400 Output: Urine 1775 995 875 Stool 150 100 ABP, PAP, CO, CI - Last Documented Arterial Blood Pressure 101/44 - Exam General:recently extubated, following simple commands. Alert and oriented 2 Eyes: PERRL, EOMI, conjunctiva normal HENT: normocephalic, atraumatic Neck: supple, no JVD Lungs: normal respiratory effort, coarse rhonchi, no wheezes. CV: Regular rate and rhythm, no murmur. Peripheral pulses 2+, positive edema with trace edema lower extremities Abdomen: Distended, soft, ileostomy and urostomy,hypoactive BS. Skin: warm and dry. Microbiology 01/11/22 16:39 Blood Blood Culture - Preliminary No Growth after 96 hours 01/10/22 11:55 Blood Blood Culture Gram Stain - Final 01/10/22 11:55 Blood Blood Culture - Final Proprionibacterium species 01/10/22 11:55 Blood Blood Culture - Final 01/09/22 00:00 Sputum Gram Stain - Final 01/09/22 00:00 Sputum Sputum Culture - Final Vesta albicans 01/06/22 18:45 Blood Blood Culture Gram Stain - Final 01/06/22 18:45 Blood Blood Culture - Final Pseudomonas aeruginosa 01/07/22 18:30 Blood Blood Culture Gram Stain - Final 01/07/22 18:30 Blood Blood Culture - Final Pseudomonas aeruginosa 01/07/22 23:30 Urine,Voided Urine Culture - Final 01/06/22 18:30 Blood Blood Culture - Final 01/06/22 18:45 Blood Blood Culture - Final - Labs CBC & Chem 7: 01/16/22 05:18 01/16/22 05:18 Labs: Abnormal Lab Results - Last 24 Hours (Table) 01/15/22 01/15/22 01/15/22 Range/Units 17:45 21:28 23:55 RBC (4.30-5.90) m/uL Hgb (13.0-17.5) gm/dL Hct (39.0-53.0) % RDW (11.5-15.5) % Plt Count (150-450) k/uL Lymphocytes # (1.0-4.8) k/uL ABG HCO3 (21-25) mmol/L ABG Total CO2 (19-24) mmol/L ABG O2 Saturation (94-97) % Sodium (137-145) mmol/L Chloride (98-107) mmol/L BUN (9-20) mg/dL Creatinine (0.66-1.25) mg/dL Glucose (74-99) mg/dL POC Glucose (mg/dL) 299 H 278 H 195 H (75-99) mg/dL Calcium (8.4-10.2) mg/dL Crossmatch 01/16/22 01/16/22 01/16/22 Range/Units 00:03 04:55 05:12 RBC (4.30-5.90) m/uL Hgb (13.0-17.5) gm/dL Hct (39.0-53.0) % RDW (11.5-15.5) % Plt Count (150-450) k/uL Lymphocytes # (1.0-4.8) k/uL ABG HCO3 27 H (21-25) mmol/L ABG Total CO2 28 H (19-24) mmol/L ABG O2 Saturation 98.0 H (94-97) % Sodium (137-145) mmol/L Chloride (98-107) mmol/L BUN (9-20) mg/dL Creatinine (0.66-1.25) mg/dL Glucose (74-99) mg/dL POC Glucose (mg/dL) 210 H 210 H (75-99) mg/dL Calcium (8.4-10.2) mg/dL Crossmatch 01/16/22 01/16/22 01/16/22 Range/Units 05:18 05:18 06:37 RBC 2.17 L (4.30-5.90) m/uL Hgb 6.7 L* (13.0-17.5) gm/dL Hct 21.4 L (39.0-53.0) % RDW 16.2 H (11.5-15.5) % Plt Count 126 L (150-450) k/uL Lymphocytes # 0.3 L (1.0-4.8) k/uL ABG HCO3 (21-25) mmol/L ABG Total CO2 (19-24) mmol/L ABG O2 Saturation (94-97) % Sodium 146 H (137-145) mmol/L Chloride 116 H (98-107) mmol/L BUN 114 H* (9-20) mg/dL Creatinine 1.96 H (0.66-1.25) mg/dL Glucose 200 H (74-99) mg/dL POC Glucose (mg/dL) (75-99) mg/dL Calcium 8.0 L (8.4-10.2) mg/dL Crossmatch See Detail 01/16/22 Range/Units 11:50 RBC (4.30-5.90) m/uL Hgb (13.0-17.5) gm/dL Hct (39.0-53.0) % RDW (11.5-15.5) % Plt Count (150-450) k/uL Lymphocytes # (1.0-4.8) k/uL ABG HCO3 (21-25) mmol/L ABG Total CO2 (19-24) mmol/L ABG O2 Saturation (94-97) % Sodium (137-145) mmol/L Chloride (98-107) mmol/L BUN (9-20) mg/dL Creatinine (0.66-1.25) mg/dL Glucose (74-99) mg/dL POC Glucose (mg/dL) 244 H (75-99) mg/dL Calcium (8.4-10.2) mg/dL Crossmatch Microbiology - Last 24 Hours (Table) 01/11/22 16:39 Blood Culture - Preliminary Blood No Growth after 96 hours Assessment and Plan Assessment: Septic shock secondary to Pseudomonas,repeat culture reported Proprionibacterium species bacteremia, etiology unclear, suspect abdomen Acute hypoxic respiratory failure secondary to the above,status post vent dependent. Hypotension, secondary to septic shock,status post pressor dependent Acute renal failure secondary to septic shock, hypotension hypernatremia, mild anemia Atrial fibrillation with RVR, new onset-suspect related to septic shock and bacteremia, currently sinus rhythm Thrombocytopenia, HIT W/U in progress Hyperkalemia secondary to the above Labs acidosis secondary to septic shock with bacteremia Metabolic acidosis secondary to acute renal failure, currently on bicarb drip Incarcerated hernia status post colostomy creation Diabetes mellitus type 2 History of bladder cancer with previous urostomy Plan: Continue on current medication regime ,monitoring and symptomatic treatment. repeat hemoglobin this afternoon-may require packed RBCs. antiarrhythmics/anticoagulation as per cardiology.Antibiotics as per ID.ICU management as per pelt inspector. mild hypernatremia,IV fluids adjusted. Prognosis guarded given multiple complex medical issues. The impression and plan of care has been dictated as directed. : I performed a history and examination of this patient, discussed the same with the dictator. I agree with the dictator's note ,documented as a scribe. Any additional findings or plans will be noted.
[2022-01-16] MEDS: DILTIAZEM ORAL 60 MG TAB PO SCH ×2 (16:45→21:12)
[2022-01-16] MEDS: ASPIRIN 81 MG PO SCH (17:34)
[2022-01-16] MEDS: APIXABAN 5 MG TAB PO SCH ×2 (17:34→21:12)
[2022-01-16] MEDS: FLUCONAZOLE IN NACL,ISO-OSM 100 MG in SALINE 1 50ML.BAG IVPB SCH (17:37)
[2022-01-16 17:40] LABS: Glucose,Whole Blood 180 mg/dL (75-99)
[2022-01-16 19:06] LABS: Anisocytosis Slight; HCT 22.4 % (39.0-53.0); Hypochromasia Slight; MCH 30.7 pg (25.0-35.0); MCHC 31.2 g/dL (31.0-37.0); MCV 98.4 fL (80.0-100.0); Macrocytosis Slight; Mean Platelet Volume 10.7; Platelet Count 145 k/uL (150-450); RBC 2.28 m/uL (4.30-5.90); RDW 16.2 % (11.5-15.5); WBC 8.3 k/uL (3.8-10.6)
[2022-01-16 20:39] LABS: Glucose,Whole Blood 144 mg/dL (75-99)
--- NOTE | 2022-01-16 21:25 | P.PN ---
Subjective Progress Note Date: 01/16/22 Principal diagnosis: Pseudomonas bacteremia Patient is 72-year-old male, presented to hospital with abdominal pain has been diagnosed with strangulated parastomal hernia, in this patient was status post exploratory laparotomy, small bowel resection with ileostomy and re pair of incisional hernia patient was noticed to have a positive blood culture has been finalized with pseudomonas aeruginosa, patient was transferred to the ICU because of hypotension. On today's evaluation that is 01/16/2022, the patient remains to be afebrile, patient has been extremely this morning and is currently on a 6 L nasal cannula, the patient is hemodynamically stable not requiring any pressor support, the patient remains to be lethargic and unable to provide any history Objective - Vital Signs Vital signs: Vital Signs Temp 98.6 F 01/16/22 08:00 Pulse 85 01/16/22 10:00 Resp 35 H 01/16/22 10:00 BP 106/48 01/16/22 10:00 Pulse Ox 98 01/16/22 10:00 Intake & Output 01/15/22 01/16/22 01/16/22 18:59 06:59 18:59 Intake Total 5680.638 2901.214 336 Output Total 1925 1095 350 Balance -334.094 -80.786 -14 Weight 97.2 kg 96.3 kg Intake: IV 283 164 274 .9 NS 25 140 30 Cardizem 5 Desmopressin Acetate 24 50 mcg In Sodium Chloride 0. 9% 50 ml @ 200 mls/hr IVPB ONCE ONE Rx#: [id number] Dextrose 5% in Water 1, 70 000 ml @ 70 mls/hr IV . [id number] [facility] Rx#:[id number] Fluconazole in NaCl,Iso- 50 Osm 100 mg In Saline 1 50ml.bag @ 50 mls/hr IVPB DAILY@1600 [facility] Rx#: [id number] Meropenem 1 gm In Sodium 200 100 Chloride 0.9% 100 ml @ 33 .3 mls/hr IVPB Q8HR [facility] Rx#:[id number] Pressure bag 3 24 24 Intake, IV Titration 304.906 171.214 Amount Diltiazem 125 mg In 125 Sodium Chloride 0.9% 100 ml @ 5 MG/HR 5 mls/hr IV .Q24H [facility] Rx#:[id number] Norepinephrine 32 mg In 141.076 46.214 Sodium Chloride 0.9% 218 ml @ 0.44 MCG/KG/MIN 18. 954 mls/hr IV .[id number] [facility] Rx#:[id number] Sodium Ferric Gluconat- 100 Sucrose 125 mg In Sodium Chloride 0.9% 100 ml @ 100 mls/hr IVPB ONCE ONE Rx#:[id number] propofoL 1,000 mg In 63.83 Empty Bag 1 bag @ Titrate IV .Q0M [facility] Rx#: [id number] Tube Feeding 403 279 62 Other 600 400 Output: Urine 1775 995 350 Stool 150 100 ABP, PAP, CO, CI - Last Documented Arterial Blood Pressure 110/47 - Exam GENERAL DESCRIPTION: An elderly male lying in bed in no distress RESPIRATORY SYSTEM: Unlabored breathing , decreased breath sounds at bases HEART: S1 S2 regular rate and rhythm , ABDOMEN: Soft , no tenderness EXTREMITIES: No edema feet - Labs CBC & Chem 7: 01/16/22 18:56 01/16/22 05:18 Labs: Abnormal Lab Results - Last 24 Hours (Table) 01/15/22 01/15/22 01/15/22 Range/Units 11:30 17:45 21:28 RBC (4.30-5.90) m/uL Hgb (13.0-17.5) gm/dL Hct (39.0-53.0) % RDW (11.5-15.5) % Plt Count (150-450) k/uL Lymphocytes # (1.0-4.8) k/uL ABG HCO3 (21-25) mmol/L ABG Total CO2 (19-24) mmol/L ABG O2 Saturation (94-97) % Sodium (137-145) mmol/L Chloride (98-107) mmol/L BUN (9-20) mg/dL Creatinine (0.66-1.25) mg/dL Glucose (74-99) mg/dL POC Glucose (mg/dL) 301 H 299 H 278 H (75-99) mg/dL Calcium (8.4-10.2) mg/dL Crossmatch 01/15/22 01/16/22 01/16/22 Range/Units 23:55 00:03 04:55 RBC (4.30-5.90) m/uL Hgb (13.0-17.5) gm/dL Hct (39.0-53.0) % RDW (11.5-15.5) % Plt Count (150-450) k/uL Lymphocytes # (1.0-4.8) k/uL ABG HCO3 27 H (21-25) mmol/L ABG Total CO2 28 H (19-24) mmol/L ABG O2 Saturation 98.0 H (94-97) % Sodium (137-145) mmol/L Chloride (98-107) mmol/L BUN (9-20) mg/dL Creatinine (0.66-1.25) mg/dL Glucose (74-99) mg/dL POC Glucose (mg/dL) 195 H 210 H (75-99) mg/dL Calcium (8.4-10.2) mg/dL Crossmatch 01/16/22 01/16/22 01/16/22 Range/Units 05:12 05:18 05:18 RBC 2.17 L (4.30-5.90) m/uL Hgb 6.7 L* (13.0-17.5) gm/dL Hct 21.4 L (39.0-53.0) % RDW 16.2 H (11.5-15.5) % Plt Count 126 L (150-450) k/uL Lymphocytes # 0.3 L (1.0-4.8) k/uL ABG HCO3 (21-25) mmol/L ABG Total CO2 (19-24) mmol/L ABG O2 Saturation (94-97) % Sodium 146 H (137-145) mmol/L Chloride 116 H (98-107) mmol/L BUN 114 H* (9-20) mg/dL Creatinine 1.96 H (0.66-1.25) mg/dL Glucose 200 H (74-99) mg/dL POC Glucose (mg/dL) 210 H (75-99) mg/dL Calcium 8.0 L (8.4-10.2) mg/dL Crossmatch 01/16/22 Range/Units 06:37 RBC (4.30-5.90) m/uL Hgb (13.0-17.5) gm/dL Hct (39.0-53.0) % RDW (11.5-15.5) % Plt Count (150-450) k/uL Lymphocytes # (1.0-4.8) k/uL ABG HCO3 (21-25) mmol/L ABG Total CO2 (19-24) mmol/L ABG O2 Saturation (94-97) % Sodium (137-145) mmol/L Chloride (98-107) mmol/L BUN (9-20) mg/dL Creatinine (0.66-1.25) mg/dL Glucose (74-99) mg/dL POC Glucose (mg/dL) (75-99) mg/dL Calcium (8.4-10.2) mg/dL Crossmatch See Detail Microbiology - Last 24 Hours (Table) 01/11/22 16:39 Blood Culture - Preliminary Blood No Growth after 96 hours Assessment and Plan (1) Bacteremia Current Visit: Yes Status: Acute Code(s): R78.81 - BACTEREMIA SNOMED Code (s): 9007984 Plan: 1-Patient with pseudomonas bacteremia source is likely abdominal and this patient presented to the hospital with incarcerated hernia status post small bowel resection and ileostomy and repair of the hernia patient did have worsening of his respiratory status requiring intubation, patient pseudomonas with intermediate sensitivity to Zosyn and cefepime, patient to continue with meropenem repeat blood culture did grew Propionibacterium and should be covered with the meropenem and continue supportive care 2-positive sputum culture with Vesta likely colonizer versus oropharyngeal candidiasis and is covered with the Diflucan Time with Patient: Less than 30
[2022-01-16 23:35] LABS: Glucose,Whole Blood 175 mg/dL (75-99)
[2022-01-17 04:13] LABS: Basophils % (A) 0 %; Eosinophils % (A) 0 %; HCT 22.3 % (39.0-53.0); Hypochromasia Slight; Lymphocytes # (A) 0.3 k/uL (1.0-4.8); Lymphocytes % (A) 4 %; MCH 30.6 pg (25.0-35.0); MCHC 30.8 g/dL (31.0-37.0); MCV 99.3 fL (80.0-100.0); Macrocytosis Slight; Mean Platelet Volume 10.6; Monocytes # (A) 0.2 k/uL (0-1.0); Monocytes % (A) 3 %; Neutrophils # (A) 6.8 k/uL (1.3-7.7); Neutrophils % (A) 93 %; Platelet Count 144 k/uL (150-450); RBC 2.24 m/uL (4.30-5.90); RDW 15.4 % (11.5-15.5); WBC 7.4 k/uL (3.8-10.6)
[2022-01-17 04:31] LABS: Calcium 8.3 mg/dL (8.4-10.2); Potassium 3.2 mmol/L (3.5-5.1)
[2022-01-17 04:41] LABS: HGB 6.9 gm/dL (13.0-17.5)
[2022-01-17] MEDS ORDERED: POTASSIUM CHLORIDE 40 MEQ in WATER FOR INJECTION 1 100ML.BAG IVPB ONE (04:59)
[2022-01-17] MEDS ORDERED: POTASSIUM CHLORIDE ER 20 MEQ TAB.ER PO SCH (05:00)
[2022-01-17] MEDS ORDERED: POTASSIUM CHLORIDE 100 ML IVPB SCH (05:15)
[2022-01-17 05:18] LABS: Glucose,Whole Blood 142 mg/dL (75-99)
[2022-01-17] MEDS: POTASSIUM CHLORIDE 20 MEQ in WATER FOR INJECTION 1 100ML.BAG IVPB SCH ×4 (05:22→11:44)
[2022-01-17] MEDS: INSULIN ASPART (NovoLOG) 100 UNIT/ML VIAL SQ SCH ×3 (05:22→17:04)
[2022-01-17] MEDS: HYDROCORTISONE SUCCINATE 100 MG/2 ML VIAL IV SCH ×2 (05:22→17:04)
[2022-01-17] MEDS: SODIUM CHLORIDE 0.9% 1,000 ML IV SCH (06:44)
[2022-01-17] MEDS: PANTOPRAZOLE 40 MG/10 ML VIAL IVP SCH (08:27)
[2022-01-17] MEDS: DILTIAZEM ORAL 60 MG TAB PO SCH ×2 (08:28→20:49)
[2022-01-17] MEDS: APIXABAN 5 MG TAB PO SCH ×2 (08:28→20:49)
[2022-01-17] MEDS: AMIODARONE 200 MG TAB PO SCH ×2 (08:28→20:49)
[2022-01-17] MEDS: ASPIRIN 81 MG PO SCH (08:28)
[2022-01-17] MEDS: MEROPENEM 1 GM in SODIUM CHLORIDE 0.9% 100 ML IVPB SCH ×3 (08:28→23:51)
[2022-01-17] MEDS: IPRATROPIUM-ALBUTEROL 3 ML NEB INHALATION SCH ×4 (08:32→20:54)
[2022-01-17] MEDS: DEXTROSE 5% IN WATER 1,000 ML IV SCH ×4 (08:34→22:47)
[2022-01-17] MEDS: NOREPINEPHRINE 32 MG in SODIUM CHLORIDE 0.9% 218 ML IV SCH ×2 (08:59→16:00)
[2022-01-17] MEDS: INSULIN DETEMIR (LEVEMIR) 100 UNIT/ML SYR SQ SCH ×2 (09:02→20:50)
--- NOTE | 2022-01-17 09:04 | P.PN ---
Subjective Patient is seen in follow-up for acute kidney injury. Renal function a little worse today. Extubated 01/16/2022. Nonoliguric. Sodium level 149. Started on full liquid diet today. Hemoglobin 6.9 today. No active bleeding. Vital signs are stable. HEENT: On nasal cannula. LUNGS: Breath sounds decreased. HEART: Regular rate and rhythm. ABDOMEN: No distention. EXTREMITITES: Trace edema. Objective - Vital Signs Vital signs: Vital Signs Temp 99.2 F 01/17/22 04:00 Pulse 92 01/17/22 08:40 Resp 28 H 01/17/22 07:00 BP 112/58 01/17/22 07:00 Pulse Ox 96 01/17/22 07:00 Intake & Output 01/16/22 01/17/22 01/17/22 18:59 06:59 18:59 Intake Total 1024 1307.167 Output Total 1245 1440 Balance -221 -132.833 Weight 96.3 kg Intake: IV 962 1258 .9 NS 110 120 Desmopressin Acetate 24 50 mcg In Sodium Chloride 0. 9% 50 ml @ 200 mls/hr IVPB ONCE ONE Rx#: [id number] Dextrose 5% in Water 1, 630 910 000 ml @ 70 mls/hr IV . [id number] [facility] Rx#:[id number] Fluconazole in NaCl,Iso- 50 Osm 100 mg In Saline 1 50ml.bag @ 50 mls/hr IVPB DAILY@1600 [facility] Rx#: [id number] Meropenem 1 gm In Sodium 100 100 Chloride 0.9% 100 ml @ 33 .3 mls/hr IVPB Q8HR [facility] Rx#:[id number] Pressure bag 72 78 Intake, IV Titration 49.167 Amount Diltiazem 125 mg In 49.167 Sodium Chloride 0.9% 100 ml @ 5 MG/HR 5 mls/hr IV .Q24H [facility] Rx#:[id number] Tube Feeding 62 Output: Urine 1245 1240 Stool 200 ABP, PAP, CO, CI - Last Documented Arterial Blood Pressure 128/52 - Labs CBC & Chem 7: 01/17/22 04:05 01/17/22 04:05 Labs: Abnormal Lab Results - Last 24 Hours (Table) 01/16/22 01/16/22 01/16/22 Range/Units 11:50 17:39 18:56 RBC 2.28 L (4.30-5.90) m/uL Hgb 7.0 L (13.0-17.5) gm/dL Hct 22.4 L (39.0-53.0) % MCHC (31.0-37.0) g/dL RDW 16.2 H (11.5-15.5) % Plt Count 145 L (150-450) k/uL Lymphocytes # (1.0-4.8) k/uL Sodium (137-145) mmol/L Potassium (3.5-5.1) mmol/L Chloride (98-107) mmol/L BUN (9-20) mg/dL Creatinine (0.66-1.25) mg/dL Glucose (74-99) mg/dL POC Glucose (mg/dL) 244 H 180 H (75-99) mg/dL Calcium (8.4-10.2) mg/dL 01/16/22 01/16/22 01/17/22 Range/Units 20:37 23:33 04:05 RBC 2.24 L (4.30-5.90) m/uL Hgb 6.9 L* (13.0-17.5) gm/dL Hct 22.3 L (39.0-53.0) % MCHC 30.8 L (31.0-37.0) g/dL RDW (11.5-15.5) % Plt Count 144 L (150-450) k/uL Lymphocytes # 0.3 L (1.0-4.8) k/uL Sodium (137-145) mmol/L Potassium (3.5-5.1) mmol/L Chloride (98-107) mmol/L BUN (9-20) mg/dL Creatinine (0.66-1.25) mg/dL Glucose (74-99) mg/dL POC Glucose (mg/dL) 144 H 175 H (75-99) mg/dL Calcium (8.4-10.2) mg/dL 01/17/22 01/17/22 Range/Units 04:05 05:17 RBC (4.30-5.90) m/uL Hgb (13.0-17.5) gm/dL Hct (39.0-53.0) % MCHC (31.0-37.0) g/dL RDW (11.5-15.5) % Plt Count (150-450) k/uL Lymphocytes # (1.0-4.8) k/uL Sodium 149 H (137-145) mmol/L Potassium 3.2 L (3.5-5.1) mmol/L Chloride 117 H (98-107) mmol/L BUN 106 H* (9-20) mg/dL Creatinine 2.15 H (0.66-1.25) mg/dL Glucose 147 H (74-99) mg/dL POC Glucose (mg/dL) 142 H (75-99) mg/dL Calcium 8.3 L (8.4-10.2) mg/dL Microbiology - Last 24 Hours (Table) 01/11/22 16:39 Blood Culture - Preliminary Blood No Growth after 120 hours Assessment and Plan Plan: Assessment: 1. Acute kidney injury secondary to ATN secondary to septic shock and obstructive uropathy. Renal function slightly worse today. Creatinine 2.15 today. Nonoliguric. Elevated BUN secondary to steroids and possible bleed. 2. Strangulated parastomal hernia status post for a laparotomy with repair of hernia, small bowel resection with ileostomy on 01/06/2022. 3. History of bladder cancer status post cystectomy and ileal loop urostomy. 4. Pseudomonas bacteremia on antibiotics. 5. Metabolic acidosis secondary to acute kidney injury. Status post IV bicarb. Resolved. 6. A. fib with RVR maintained on oral Cardizem and amiodarone. 7. Hypernatremia from lack of oral water intake. 8. Volume overload. Improved. 9. Acute blood loss anemia. No active bleeding per nurse. Hemoglobin 6.9 today. Also received IV DDAVP 01/16/2022. 10. Hypokalemia from poor intake and diuresis. Plan: Increase D5W to 100 mL an hour. Repeat sodium level this evening. Consider blood transfusion. Defer to ICU and primary team. Avoid nephrotoxins. Continue to monitor renal function and urine output. Potassium being replaced.
--- NOTE | 2022-01-17 09:13 | P.PN ---
Progress Note - Text Progress Note Date: 01/17/22 Patient is clinically improving. He is tolerating some food orally. On exam vital signs are stable. Abdomen soft. Ileostomy dysfunction. Urostomy is pink and viable. Status post repair of strangulated parastomal hernia at urostomy site. Patient will start full liquid diet and advance as tolerated. He'll continue receive supportive care.
--- NOTE | 2022-01-17 09:37 | XR ---
EXAMINATION TYPE: XR chest 1V portable DATE OF EXAM: 01/17/2022 COMPARISON: 01/16/2022 HISTORY: Cough TECHNIQUE: Single frontal view of the chest is obtained. FINDINGS: Right-sided central line and PICC line again noted. Central line is distally placed near t he atrial ventricular junction correlate clinically. ET and NG tube have been removed. Diffuse inters titial pattern with bilateral infiltrate and pleural effusion noted. Hypertrophic and degenerative ch [place] of the spine. Atherosclerotic change aorta. IMPRESSION: Stable diffuse bilateral infiltrate and pleural effusion correlate for CHF versus diffus e pneumonia.
--- NOTE | 2022-01-17 10:07 | P.PN ---
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 He also has a history of urostomy that was done at [facility] several years ago and previous bladder cancer. He had presented to the emergency room yesterday with complaints of abdominal painand distention. CAT scan of the abdomen revealed cyst addition for parastomal hernia which is obstructing the patient Werner conduit through the subcutaneous tissues. There is mild bilateral hydronephrosis. Parastomal hernia containing small bowel demonstrated pneumobilia suggesting strangulation small bowel with possible perforation. Subcutaneous gas which may represent superimposed infections secondary to the small bowel strangulation and possible perforation. White count 12.2. Hemoglobin 10.4. Sodium 138. Potassium 4.8. BUN 47. Creatinine 3.17. Glucose 252. Plasma lactic acid 2.2. Troponin 0.013. House virus by PCR not detected. He was taken to the op erating room last evening and had undergone an exploratory laparotomy, repair of strangulated parastomal hernia, small bowel resection with ileostomy, repair of incisional hernia. Blood cultures preliminary revealing gram-negative bacilli. Lactic acid up to 4.9 today. The patient had issues with hypotension and tachycardia this morning. We're consulted for ICU management. He was transferred there per medicine. 1 L of fluid resuscitation was given. Current labs revealed WBC 2.6. Hemoglobin 11.2. Sodium 133. Potassium 5.5. Chloride 105. Bicarb 17. BUN 55. Creatinine 3.80. Glucose 305. currently on Zosyn. He is seen today in consultation. He is awake and alert. He is having some surg ical site pain but denies any worsening shortness of breath. No cough or congestion. No fever. The patient is seen today 01/08/2022 in follow-up in the intensive care unit. He is currently sitting up in bed. More awake and alert today. His color is better. He did receive 4 L of fluid resuscitation yesterday. He is now requiring norepinephrine currently at 0.26 mcg/kg/m. He has 0.9% normal saline running at 125 ML's per hour. Mean arterial pressure 85 currently. He is tachycardic in the 120s. Sinus. Maintaining O2 saturation the high 90s on 2 L/m per nasal cannula. Chest x-ray continues to show interstitial changes in the lung bases. No pneumothorax. Suspect basilar atelectasis versus pneumonia and possible underlying interstitial lung disease. The patient denied having had COVID-19 infection. Blood culture is positive for pseudomonas aeruginosa. He is currently on Zosyn. White count 2.6. Hemoglobin 9.8. Sodium 138. Potassium 5.7. Bicarb 16. BUN 55. Creatinine 3.65. Glucose 140. Urinalysis with large amount of blood and high WBCs. Cultures pending. Arterial blood gases on 28% FiO2 revealed a PaO2 of 73, pCO2 38 and a pH of 7.22. He remains on DuoNeb inhalations, heparin for DVT prophylaxis, Protonix for GI prophylaxis. He remains nothing by mouth. There is minimal output of the ileostomy. Midline dressing dry and intact. Urostomy with adequate output. Currently in a 3.2 L positive balance Progress note dated 01/13/2022. 72-year-old male, again seen in room 261. The patient was initially admitted back on 01/06, for abdominal pain, and an incarcerated hernia. The patient went to the operating room on 01/06, for exploratory laparotomy and ileostomy. The patient was extubated successfully, but came to the intensive care unit on 06/2022, and was intubated on 01/07/2022. The patient remains on the mechanical ventilator. Blood cultures show evidence of Pseudomonas. Currently, he's on meropenem and fluconazole. He will get some Lasix IV push today, as he is quite edematous. Current ventilator settings include the volume assist control mode, rate 20, tidal volume 500, FiO2 40%, and PEEP of 6. Arterial blood gases show pO2 101, pCO2 42, and pH 7.45. The patient remains on norepinephrine at 25 mcg/m, propofol at 35 mcg/kg/m, TPN at 60 mL an hour, tube feedings with Nepro at 20 mL an hour, and saline at 25 mL an hour. Because of the ongoing use of norepinephrine, I asked the nurses to draw a stat TSH and random cortisol. Current laboratory data includes a sodium 143, potassium 3.6, chlorides 112, CO2 27, anion gap 4, BUN 73, and creatinine 2.09. Blood cultures from January 06 and January 07 both show evidence of pseudomonas aeruginosa. Chest x-ray shows diffuse bilateral infiltrates. The patient is seen today 01/14/2022 in follow-up in the intensive care unit. He remains intubated and on mechanical ventilator. Currently on assist control mode at a rate of 20, tidal volume 500, FiO2 40% and a PEEP of 6. Morning blood gases revealed a PaO2 of 96, pCO2 38, pH 7.46. He is still requiring norepinephrine at 24 mcg/kg/m. He is on a Cardizem drip at 5 mg an hour. He is being nourished with TPN at 60 ML's per hour and 0.9 normal saline at a 20 ML's per hour. He is being transitioned to Vital HP. Today's chest x-ray shows slight improvement. There is continued bilateral patchy infiltrates mostly in the lower lobes. Nasogastric tube remains in place. Right central line remains in place. Initial blood cultures were positive for pseudomonas aeruginosa. Subsequent blood cultures are pending. Continued on meropenem and fluconazole. White count 11.4. Hemoglobin 8.4. Platelet count 90,000. Sodium 142. Potassium 4.1. Chloride 109. BUN 84. Creatinine 2.01. Blood glucose 299. Serum cortisol level is 22. He remains on DuoNeb inhalations. Currently in sinus rhythm. Having issues with paroxysmal atrial fibrillation which occurred yesterday during his daily interruption of sedation. The patient is seen today 01/15/2022 in follow-up in the intensive care unit. He remains intubated on the mechanical ventilator. Current settings are assist- control mode at a rate of 20, tidal volume 500, FiO2 40% and a PEEP of 6. Morning blood gases revealed a PaO2 of 100, pCO2 40, pH 7.43. He is still requiring norepinephrine at 0.16 mcg/kg/m. He's on Cardizem drip at 5 mg per hour. Sedated with propofol at 25 mcg/mg/m. He is being nourished with vital HP at 31 ML's per hour which is goal. His ostomies are functioning. He is on antibiotics in the form of meropenem and fluconazole. He did fail weaning trials yesterday. He develops atrial fibrillation with rapid ventricular r esponse and increased respiratory rate. He is currently in sinus rhythm. He was given Lasix 80 mg IVP 1 this morning per nephrology. Free water flushes were increased as well. Blood cultures were positive for Proprionibacterium species. Previous cultures positive for pseudomonas aeruginosa. Sputum culture positive for Vesta. White count 9.7. Hemoglobin 7.8. Platelets 124,000. Sodium 144. Potassium 4.6. BUN 98. Creatinine 2.10. Glucose 230. He is currently in a -715 ML balance. He remains on Solu-Cortef, bronchodilators, amiodarone. Blood glucose controlled with Levemir. Patient is seen today 01/16/2022 in the intensive care unit. Blood gases revealed a PaO2 of 108, pCO2 39 and a pH of 7.44 on 40% FiO2. He had good weaning parameters and was extubated earlier this morning. He is currently on 6 L high flow nasal cannula. He is maintaining O2 saturation in the upper 90s. Currently afebrile. Hemodynamically stable. His ventricular rate is well controlled. He is still on Cardizem drip at 5 mg per hour. He's been restarted on Eliquis 5 mg twice a day. He is awake. Still quite weak. He has a weak cough. His heart rate is better controlled. He's on Cardizem drip at 5 mg per hour. Amiodarone 400 mg by mouth twice a day. He's been resumed on Eliquis 5 mg twice a day. He is continued on meropenem and fluconazole. Earlier blood cultures are positive for pseudomonas aeruginosa. Follow-up blood cultures are revealing no growth thus far. 0.9 normal saline at [facility]. He is continued on Solu-Cortef 50 mg IV every 6 hours. Levemir for blood glucose control. He remains on bronchodilators. Chest x-ray continues to show diffuse bilateral patchy infiltrates. White count 6.4. Hemoglobin 6.7. Platelet count 127,000. Sodium 146. Potassium 3.9. Bicarb 25. BUN 114. Creatinine 1.96. Glucose 200. He is currently in a positive balance 183 ML's. The patient is seen today 01/17/2022 in follow-up in the intensive care unit. He is sitting up in bed. More awake and alert today.he is maintaining O2 saturation in the 90s on 2 L/m per nasal cannula. Chest x-ray reveals stable diffuse bilateral infiltrates and pleural effusions. Afebrile. Hemodynamically stable. Tolerating clear liquids. Ostomies are functioning. WBC 7.4. Hemoglobin 6.9. Platelets 144. Sodium 149. Potassium 3.2. Bicarb 25. BUN 106. Creatinine 2.15. Glucose 147. He is in a positive balance of 182 ML's. His weight is 96.3 kg. He remains on oral amiodarone. Anticoagulated with Eliquis. Continued on Solu-Cortef. Antibiotics in the form of meropenem. Cont inued on fluconazole. Follow-up blood cultures are revealing no growth. Remains on effect 100 ML's per hour per nephrology. Objective - Vital Signs Vital signs: Vital Signs Temp 99.2 F 01/17/22 04:00 Pulse 92 01/17/22 08:40 Resp 28 H 01/17/22 07:00 BP 112/58 01/17/22 07:00 Pulse Ox 96 01/17/22 07:00 Intake & Output 01/16/22 01/17/22 01/17/22 18:59 06:59 18:59 Intake Total 1024 1307.167 Output Total 1245 1440 Balance -221 -132.833 Weight 96.3 kg Intake: IV 962 1258 .9 NS 110 120 Desmopressin Acetate 24 50 mcg In Sodium Chloride 0. 9% 50 ml @ 200 mls/hr IVPB ONCE ONE Rx#: [id number] Dextrose 5% in Water 1, 630 910 000 ml @ 70 mls/hr IV . [id number] [facility] Rx#:[id number] Fluconazole in NaCl,Iso- 50 Osm 100 mg In Saline 1 50ml.bag @ 50 mls/hr IVPB DAILY@1600 [facility] Rx#: [id number] Meropenem 1 gm In Sodium 100 100 Chloride 0.9% 100 ml @ 33 .3 mls/hr IVPB Q8HR [facility] Rx#:[id number] Pressure bag 72 78 Intake, IV Titration 49.167 Amount Diltiazem 125 mg In 49.167 Sodium Chloride 0.9% 100 ml @ 5 MG/HR 5 mls/hr IV .Q24H [facility] Rx#:[id number] Tube Feeding 62 Output: Urine 1245 1240 Stool 200 ABP, PAP, CO, CI - Last Documented Arterial Blood Pressure 128/52 - Exam GENERAL EXAM: Awake, alert quite weak 72-year-old gentleman, on 2 L high flow nasal cannula, fairly comfortable in no apparent distress. HEAD: Normocephalic. EYES: Normal reaction of pupils, equal size. NOSE: Clear with pink turbinates. THROAT: Oral endotracheal and gastric tube secured in place. No erythema or exudates. NECK: No masses, no JVD. CHEST: No chest wall deformity. LUNGS: Equal air entry with crackles in the posterior bases. CVS: S1 and S2 normal with no audible murmur, regular rhythm. ABDOMEN: Urostomy and ileostomy both functioning.. SPINE: No scoliosis or deformity SKIN: No rashes CENTRAL NERVOUS SYSTEM: No focal deficits, tone is normal in all 4 extremities. EXTREMITIES: There is no peripheral edema. No clubbing, no cyanosis. Peripheral pulses are intact. - Labs CBC & Chem 7: 01/17/22 04:05 01/17/22 04:05 Labs: Abnormal Lab Results - Last 24 Hours (Table) 01/16/22 01/16/22 01/16/22 Range/Units 11:50 17:39 18:56 RBC 2.28 L (4.30-5.90) m/uL Hgb 7.0 L (13.0-17.5) gm/dL Hct 22.4 L (39.0-53.0) % MCHC (31.0-37.0) g/dL RDW 16.2 H (11.5-15.5) % Plt Count 145 L (150-450) k/uL Lymphocytes # (1.0-4.8) k/uL Sodium (137-145) mmol/L Potassium (3.5-5.1) mmol/L Chloride (98-107) mmol/L BUN (9-20) mg/dL Creatinine (0.66-1.25) mg/dL Glucose (74-99) mg/dL POC Glucose (mg/dL) 244 H 180 H (75-99) mg/dL Calcium (8.4-10.2) mg/dL 01/16/22 01/16/22 01/17/22 Range/Units 20:37 23:33 04:05 RBC 2.24 L (4.30-5.90) m/uL Hgb 6.9 L* (13.0-17.5) gm/dL Hct 22.3 L (39.0-53.0) % MCHC 30.8 L (31.0-37.0) g/dL RDW (11.5-15.5) % Plt Count 144 L (150-450) k/uL Lymphocytes # 0.3 L (1.0-4.8) k/uL Sodium (137-145) mmol/L Potassium (3.5-5.1) mmol/L Chloride (98-107) mmol/L BUN (9-20) mg/dL Creatinine (0.66-1.25) mg/dL Glucose (74-99) mg/dL POC Glucose (mg/dL) 144 H 175 H (75-99) mg/dL Calcium (8.4-10.2) mg/dL 01/17/22 01/17/22 Range/Units 04:05 05:17 RBC (4.30-5.90) m/uL Hgb (13.0-17.5) gm/dL Hct (39.0-53.0) % MCHC (31.0-37.0) g/dL RDW (11.5-15.5) % Plt Count (150-450) k/uL Lymphocytes # (1.0-4.8) k/uL Sodium 149 H (137-145) mmol/L Potassium 3.2 L (3.5-5.1) mmol/L Chloride 117 H (98-107) mmol/L BUN 106 H* (9-20) mg/dL Creatinine 2.15 H (0.66-1.25) mg/dL Glucose 147 H (74-99) mg/dL POC Glucose (mg/dL) 142 H (75-99) mg/dL Calcium 8.3 L (8.4-10.2) mg/dL Microbiology - Last 24 Hours (Table) 01/11/22 16:39 Blood Culture - Preliminary Blood No Growth after 120 hours Assessment and Plan Assessment: 1 Acute abdominal pain secondary to parastomal hernia containing small bowel demonstrating pneumobilia suggesting strangulation small bowel with possible perforation. Subcutaneous gas which may represent superimposed infection. No organizing fluid collection of the time to suggest abscess. Status post e xploratory laparotomy, repair of strangulated parastomal hernia, small bowel resection with ileostomy, repair of incisional hernia performed on 01/06/2022. 2 Sepsis with bacteremia secondary to pseudomonas aeruginosa Follow-up blood cultures revealing no growth. 3 Acute hypoxemic respiratory failure secondary to above requiring prolonged intubation. Extubated on 01/16/2022. Currently on 2 L high flow nasal cannula. 4 Lactic acidosis, resolved 5 Acute renal failure, current creatinine 2.15 6 Hyperkalemia secondary to above, current potassium 3.2 7 History of bladder cancer with previous urostomy. 8 Diabetes mellitus with subsequent hyperglycemia 9 Hyperlipidemia 10 BPH 11 Visual disorder 12 Coronary artery disease with previous stent placement 13 Chronic tobacco dependence 14 Anemia, current hemoglobin 6.9 15 Thrombocytopenia, improving, current platelet count 144,000 16 Hypernatremia Plan: The patient was seen and evaluated Chest x-ray and labs reviewed Up remains on D5W at 100 ML's per hour. Continue on 2 L high flow nasal cannula Titrate the FiO2 as tolerated Continued on meropenem and fluconazole Discontinue hydrocortisone Advance diet per surgical services Remains on a Cardizem and amiodarone. Anticoagulanted with Eliquis We will continue to follow and make further recommendations based on his clinical status I, the cosigning physician, performed a history & physical examination of the patient. Lungs sounds with crackles in the posterior bases. Maintaining good O2 saturations in the 90s on 2 L nasal cannula. I discussed the assessment and plan of care with my nurse practitioner, Cony Siegel. I attest to the above note as dictated by her. I have personally seen and examined the patient, performed the documentation and the assessment and plan as written. Number of minutes spent on the visit: 10. <Benji Trotter - Last Filed: 01/17/22 10:07> Objective - Vital Signs Vital signs: Vital Signs Temp 99.2 F 01/17/22 04:00 Pulse 92 01/17/22 08:40 Resp 28 H 01/17/22 07:00 BP 112/58 01/17/22 07:00 Pulse Ox 96 01/17/22 07:00 Intake & Output 01/16/22 01/17/22 01/17/22 18:59 06:59 18:59 Intake Total 1024 1307.167 Output Total 1245 1440 Balance -221 -132.833 Weight 96.3 kg Intake: IV 962 1258 .9 NS 110 120 Desmopressin Acetate 24 50 mcg In Sodium Chloride 0. 9% 50 ml @ 200 mls/hr IVPB ONCE ONE Rx#: [id number] Dextrose 5% in Water 1, 630 910 000 ml @ 70 mls/hr IV . [id number] [facility] Rx#:[id number] Fluconazole in NaCl,Iso- 50 Osm 100 mg In Saline 1 50ml.bag @ 50 mls/hr IVPB DAILY@1600 [facility] Rx#: [id number] Meropenem 1 gm In Sodium 100 100 Chloride 0.9% 100 ml @ 33 .3 mls/hr IVPB Q8HR [facility] Rx#:[id number] Pressure bag 72 78 Intake, IV Titration 49.167 Amount Diltiazem 125 mg In 49.167 Sodium Chloride 0.9% 100 ml @ 5 MG/HR 5 mls/hr IV .Q24H [facility] Rx#:[id number] Tube Feeding 62 Output: Urine 1245 1240 Stool 200 ABP, PAP, CO, CI - Last Documented Arterial Blood Pressure 128/52 - Labs CBC & Chem 7: 01/17/22 04:05 01/17/22 04:05 Labs: Abnormal Lab Results - Last 24 Hours (Table) 01/16/22 01/16/22 01/16/22 Range/Units 11:50 17:39 18:56 RBC 2.28 L (4.30-5.90) m/uL Hgb 7.0 L (13.0-17.5) gm/dL Hct 22.4 L (39.0-53.0) % MCHC (31.0-37.0) g/dL RDW 16.2 H (11.5-15.5) % Plt Count 145 L (150-450) k/uL Lymphocytes # (1.0-4.8) k/uL Sodium (137-145) mmol/L Potassium (3.5-5.1) mmol/L Chloride (98-107) mmol/L BUN (9-20) mg/dL Creatinine (0.66-1.25) mg/dL Glucose (74-99) mg/dL POC Glucose (mg/dL) 244 H 180 H (75-99) mg/dL Calcium (8.4-10.2) mg/dL 01/16/22 01/16/22 01/17/22 Range/Units 20:37 23:33 04:05 RBC 2.24 L (4.30-5.90) m/uL Hgb 6.9 L* (13.0-17.5) gm/dL Hct 22.3 L (39.0-53.0) % MCHC 30.8 L (31.0-37.0) g/dL RDW (11.5-15.5) % Plt Count 144 L (150-450) k/uL Lymphocytes # 0.3 L (1.0-4.8) k/uL Sodium (137-145) mmol/L Potassium (3.5-5.1) mmol/L Chloride (98-107) mmol/L BUN (9-20) mg/dL Creatinine (0.66-1.25) mg/dL Glucose (74-99) mg/dL POC Glucose (mg/dL) 144 H 175 H (75-99) mg/dL Calcium (8.4-10.2) mg/dL 01/17/22 01/17/22 Range/Units 04:05 05:17 RBC (4.30-5.90) m/uL Hgb (13.0-17.5) gm/dL Hct (39.0-53.0) % MCHC (31.0-37.0) g/dL RDW (11.5-15.5) % Plt Count (150-450) k/uL Lymphocytes # (1.0-4.8) k/uL Sodium 149 H (137-145) mmol/L Potassium 3.2 L (3.5-5.1) mmol/L Chloride 117 H (98-107) mmol/L BUN 106 H* (9-20) mg/dL Creatinine 2.15 H (0.66-1.25) mg/dL Glucose 147 H (74-99) mg/dL POC Glucose (mg/dL) 142 H (75-99) mg/dL Calcium 8.3 L (8.4-10.2) mg/dL Microbiology - Last 24 Hours (Table) 01/11/22 16:39 Blood Culture - Preliminary Blood No Growth after 120 hours Assessment and Plan Assessment: I have personally seen and examined the patient, performed the documentation and the assessment and plan as written. Number of minutes spent on the visit: 20.
[2022-01-17 11:40] LABS: Glucose,Whole Blood 104 mg/dL (75-99)
--- NOTE | 2022-01-17 13:51 | P.PN ---
Subjective Progress Note Date: 01/17/22 This is a 72-year-old gentleman with history of coronary artery disease with previous PCI, diabetes mellitus, hypertension and hyperlipidemia and also history of bladder cancer with urostomy. Patient is status post surgery for perforated viscus. Patient is also intubated. His echocardiogram showed an ej ection fraction about 35-40% with global hypokinesia without any significant valvular abnormalities. Patient had an episode of A. fib but converted back to sinus rhythm. In the rhythm appears to be mostly is a sinus rhythm with APCs are multifocal atrial rhythm at this time. 01/14/2022: This patient is status post surgery for possible perforated viscus. Patient also has sepsis. We're following patient because of intermittent atrial fibrillation. Patient is currently on IV Cardizem 5 mg daily is maintaining sinus rhythm. His her multiple medications including antibiotics. Still on mechanical ventilator. His echo [place] showed ejection fraction 35-40%. We'll continue current management. We'll follow. 01/15/2022: This patient with history of coronary artery disease, diabetes, hy pertension and hypercholesterolemia who was admitted to the abdominal pain and was noted. Strength ablation of the small bowel in the parastomal hernia. Patient underwent surgical procedure including small bowel resection and ileostomy. Patient is also being treated for sepsis and bacteremia and also hypertension. patient had episodes of atrial fibrillation and was treated with amiodarone. Patient is on IV Cardizem and maintaining sinus rhythm. Patient had thrombocytopenia and also anemia. Platelet count is improving and seemed to be around 1 20,000. However, his hemoglobin dropped to 7.8. Patient needs to go on and decortication therapy because of his coronary artery disease and imp aired LV function. He was okay with the surgical team, patient to be constricted for Eliquis 5 mg by mouth twice a day. However, his platelet counts and hemoglobin 8 followed closely. 01/16/2022: This patient is extubated today. Is awake but seemed to be weak and frail. Patient is afebrile. So far his maintaining sinus rhythm. He is on anticoagulation therapy is also on IV Cardizem. We'll switch to by mouth Cardizem. He is also on amiodarone 400 mg by mouth twice a day. We will taper the amiodarone to 200 mg by mouth twice a day from tomorrow. Chest x-ray shows bilateral infiltrates. Apparently blood cultures have been negative. His hemoglobin dropped to 6.8. Surgical team is following. Plan is to repeat hemoglobin in the afternoon. If hemoglobin evidence for the, may have to discontinue anticoagulation. Further examination depend upon clinical course. 01/17/2022: Patient remained extubated. He seemed to be more alert, maintaining oxygen saturation. Chest x-ray shows stable findings. Patient seemed to maintaining sinus rhythm. He is on by mouth Cardizem and amiodarone. I will cut back the dose of amiodarone and tomorrow to 200 mg by mouth twice a day. Potassium is low which is being corrected. He is also on anti-cognition therapy. Hemoglobin is maintaining about 6.8-7 g range. Rest of the management as for intensivists Objective - Vital Signs Vital signs: Vital Signs Temp 98.0 F 01/17/22 12:00 Pulse 89 01/17/22 13:00 Resp 34 H 01/17/22 13:00 BP 118/77 01/17/22 13:00 Pulse Ox 92 L 01/17/22 13:00 Intake & Output 01/16/22 01/17/22 01/17/22 18:59 06:59 18:59 Intake Total 1024 3598.889 0701 Output Total 1245 1440 1345 Balance -221 -132.833 -45 Weight 96.3 kg 96.3 kg Intake: IV 962 1258 750 .9 NS 110 120 60 Desmopressin Acetate 24 50 mcg In Sodium Chloride 0. 9% 50 ml @ 200 mls/hr IVPB ONCE ONE Rx#: [id number] Dextrose 5% in Water 1, 630 910 570 000 ml @ 70 mls/hr IV . [id number] [facility] Rx#:[id number] Fluconazole in NaCl,Iso- 50 Osm 100 mg In Saline 1 50ml.bag @ 50 mls/hr IVPB DAILY@1600 [facility] Rx#: [id number] Meropenem 1 gm In Sodium 100 100 Chloride 0.9% 100 ml @ 33 .3 mls/hr IVPB Q8HR [facility] Rx#:[id number] Pressure bag 72 78 120 Intake, IV Titration 49.167 Amount Diltiazem 125 mg In 49.167 Sodium Chloride 0.9% 100 ml @ 5 MG/HR 5 mls/hr IV .Q24H [facility] Rx#:[id number] Oral 550 Tube Feeding 62 Output: Urine 1245 1240 995 Stool 200 350 Other: Voiding Method Indwelling Catheter ABP, PAP, CO, CI - Last Documented Arterial Blood Pressure 118/41 - Exam GENERAL EXAM: Patient is extubated and seemed to be alert but frail and weak HEENT: Normocephalic. Normal reaction of pupils, equal size, normal range of extraocular motion. No erythema or exudates in the throat. NECK: No masses, no nuchal rigidity. CHEST: No chest wall deformity. LUNGS: Diminished air exchange HEART: S1 and S2 normal . Distant heart sounds ABDOMEN: No hepatosplenomegaly, normal bowel sounds, no guarding or rigidity. SKIN: No rashes CENTRAL NERVOUS SYSTEM: Deferred EXTREMITIES: No cyanosis, clubbing or edema. - Labs CBC & Chem 7: 01/17/22 04:05 01/17/22 04:05 Labs: Abnormal Lab Results - Last 24 Hours (Table) 01/16/22 01/16/22 01/16/22 Range/Units 17:39 18:56 20:37 RBC 2.28 L (4.30-5.90) m/uL Hgb 7.0 L (13.0-17.5) gm/dL Hct 22.4 L (39.0-53.0) % MCHC (31.0-37.0) g/dL RDW 16.2 H (11.5-15.5) % Plt Count 145 L (150-450) k/uL Lymphocytes # (1.0-4.8) k/uL Sodium (137-145) mmol/L Potassium (3.5-5.1) mmol/L Chloride (98-107) mmol/L BUN (9-20) mg/dL Creatinine (0.66-1.25) mg/dL Glucose (74-99) mg/dL POC Glucose (mg/dL) 180 H 144 H (75-99) mg/dL Calcium (8.4-10.2) mg/dL 01/16/22 01/17/22 01/17/22 Range/Units 23:33 04:05 04:05 RBC 2.24 L (4.30-5.90) m/uL Hgb 6.9 L* (13.0-17.5) gm/dL Hct 22.3 L (39.0-53.0) % MCHC 30.8 L (31.0-37.0) g/dL RDW (11.5-15.5) % Plt Count 144 L (150-450) k/uL Lymphocytes # 0.3 L (1.0-4.8) k/uL Sodium 149 H (137-145) mmol/L Potassium 3.2 L (3.5-5.1) mmol/L Chloride 117 H (98-107) mmol/L BUN 106 H* (9-20) mg/dL Creatinine 2.15 H (0.66-1.25) mg/dL Glucose 147 H (74-99) mg/dL POC Glucose (mg/dL) 175 H (75-99) mg/dL Calcium 8.3 L (8.4-10.2) mg/dL 01/17/22 01/17/22 Range/Units 05:17 11:39 RBC (4.30-5.90) m/uL Hgb (13.0-17.5) gm/dL Hct (39.0-53.0) % MCHC (31.0-37.0) g/dL RDW (11.5-15.5) % Plt Count (150-450) k/uL Lymphocytes # (1.0-4.8) k/uL Sodium (137-145) mmol/L Potassium (3.5-5.1) mmol/L Chloride (98-107) mmol/L BUN (9-20) mg/dL Creatinine (0.66-1.25) mg/dL Glucose (74-99) mg/dL POC Glucose (mg/dL) 142 H 104 H (75-99) mg/dL Calcium (8.4-10.2) mg/dL Microbiology - Last 24 Hours (Table) 01/11/22 16:39 Blood Culture - Preliminary Blood No Growth after 120 hours Assessment and Plan (1) Atrial fibrillation Current Visit: Yes Status: Acute Code(s): I48.91 - UNSPECIFIED ATRIAL FIBRILLATION SNOMED Code(s): 84699685 (2) Bowel perforation Current Visit: Yes Status: Acute Code(s): K63.1 - PERFORATION OF INTESTINE (NONTRAUMATIC) SNOMED Code(s): 30796906 (3) Chronic renal failure Current Visit: Yes Status: Acute Code(s): N18.9 - CHRONIC KIDNEY DISEASE, UNSPECIFIED SNOMED Code(s): 07530343 (4) Strangulated hernia of abdominal wall Current Visit: Yes Status: Acute Code(s): K43.6 - OTHER AND UNSP VENTRAL HERNIA WITH OBSTRUCTION, W/O GANGRENE SNOMED Code(s): 55525831 Plan: Patient is maintaining sinus rhythm. On by mouth Cardizem and amiodarone along with anticoagulation therapy. We will continue current medical therapy. We will follow
--- NOTE | 2022-01-17 14:53 | P.PN ---
Subjective Progress Note Date: 01/17/22 Xavier Langford is a 72 yo M with PMH of bladder cancer s/p cystectomy and urostomy, CAD, T2DM, who presented to the ED complaining of worsening abdominal pain and distention. CT on presentation showed large parastomal hernia obstructing his ileal conduit and concern for strangulation and possible perforation. Initial WBC 12.2. Hemoglobin 10.4. Sodium 138. Potassium 4.8. BUN 47. Creatinine 3.17. Glucose 252. Plasma lactic acid 2.2, trop negative. Pt underwent exploratory laparotomy, repair of strangulated parastomal hernia, small bowel resection with ileostomy, repair of incisional hernia. Today his labs reflect drop in WBC to 2.6, Potassium 6.1, Cr 3.8. Blood cultures preliminary revealing gram-negative bacilli. 01/08/22 Tachycardic, heart rates in the 120s to 130s, tachypneic.Maintained on Zo syn, blood culture reporting pseudomonas aeruginosa . Urine culture pending. Currently afebrile. Maintaining O2 sats in the high 90s on 2 L nasal cannula.Maintained on IV fluid hydration, and Levophed. Good urine output. Creatinine decreased to 3.65. ABGs reflecting metabolic acidosis, bicarb drip initiated. Complains of abdominal pain, greater on the right. Blood sugars controlled on low-dose Levemir. 01/09/2022 Developed atrial fibrillation with RVR in addition to respiratory distress requiring intubation and antiarrhythmics last night. Currently on FiO2 40%/+8 of PEEP. Maintained on fentanyl, bicarb, diprovan, amiodarone, vasopressin and the Levophed drips. Telemetry currently sinus rhythm .Continues on Zosyn for Pseudomonas bacteremia. Urine cultures negative. Sputum culture pending. Multiple fluid boluses yesterday, chest x-ray this morning reporting possible pneumonia, CHF, interstitial lung disease. Afebrile, T-max 99.4, normal WBC. Hemoglobin 8.8, platelets 135. Creatinine trending down, 3.15,Magnesium 1.6, nephrology following. 01/10/22 Remains vent dependent, FiO2 40%/+8 peep. Chest x-ray reporting stable bilateral infiltrate and pleural effusion, possible CHF superimposed on background of chronic interstitial pulmonary fibrosis and COPD, possible un derlying pneumonia. Telemetry sinus rhythm. 2-D echo completed, results pending .Maintained on bicarb, fentanyl, vasopressin, Levophed, diprovan drips. Hemoglobin 8.6 Creatinine continues to improve down to 2.72. T-max 99.8, WBC 4.5. Continues on Zosyn. 01/13/2010 remains vent dependent, FiO2 40%/+6 of PEEP. Chest x-ray pending. Maintained on diprovan, Levophed drips. T-max 100.1. Pseudomonas bacteremia suspect related to the abdomen. Maintained on meropenem, fluconazole. Preliminary repeat blood cultures currently reporting no growth after 24 hours. BUN 73, creatinine 2.09. Received a dose of Lasix today-generalized edema. Continues on TPN, tube feeds. 01/14/2022 vent dependent, FiO2 40%/+6 of PEEP. Chest x-ray reporting slight improvement. Last night developed atrial fibrillation with RVR, placed on Cardizem drip. Currently on sedation holiday with diprovan temporarily off. Continues to require pressor support with Levophed. Maintained on TPN ,blood sugars elevated. T-max 100.3, WBC 11.4, repeat preliminary blood cultures reporting no growth after 48 hours. 01/15/2022 remains vent dependent with FiO2 40%/+6 of PEEP. Maintained on Cardizem, Levophed and Diprovan drips. Failed weaning trials yesterday. 01/16/2022 remained off of sedation 24 hours with good weaning parameters, extubated this morning.Levophed has been off early a.m.Maintaining O2 sats in the 90s on 6 L high flow nasal cannula. Audible loose congestion,weak cough,scopolamine patch added to med regimen. Chest x-ray reporting stable diffuse bilateral pleural parenchymal changes.telemetry sinus rhythm.Continues on Cardizem drip,oral amiodarone with Eliquis resumed.hemoglobin 6.7, no blood t ransfusion at this time with repeat hemoglobin this afternoon as per surgery. Sodium 146,BUN 114, creatinine 1.96;DDAVP and IV fluids adjusted to D5 /0.45 as per nephrology.continues on meropenem and fluconazole,repeat blood culture report no growth after 96 hours. 01/17/2022 extubated yesterday, maintaining O2 sats in the 90s on 4 L nasal cannula. Chest x-ray reporting stable diffuse bilateral infiltrates and pleural effusions. Tolerating clear liquids ,diet has been advanced to full liquids for lunch time as per surgery. Conversing with minimal shortness of breath weak nonproductive cough, attempting to clear throat. Renal function mildly worsened, BUN 106, creatinine 2.15. Sodium worsening up to 149, IV fluids of D5W increased. Receiving potassium supplements for potassium of 3.2. Maintained on Merrem and fluconazole. Afebrile, WBC 7.4 ,T-max 99.2. Hemoglobin 6.9, platelets 144. Telemetry sinus rhythm on oral amiodarone and Cardizem. Anticoagulated with Eliquis. Objective - Vital Signs Vital signs: Vital Signs Temp 99.2 F 01/17/22 04:00 Pulse 100 01/17/22 07:00 Resp 28 H 01/17/22 07:00 BP 112/58 01/17/22 07:00 Pulse Ox 96 01/17/22 07:00 Intake & Output 01/16/22 01/17/22 01/17/22 18:59 06:59 18:59 Intake Total 1024 1307.167 Output Total 1245 1290 Balance -221 17.167 Weight 96.3 kg Intake: IV 962 1258 .9 NS 110 120 Desmopressin Acetate 24 50 mcg In Sodium Chloride 0. 9% 50 ml @ 200 mls/hr IVPB ONCE ONE Rx#: [id number] Dextrose 5% in Water 1, 630 910 000 ml @ 70 mls/hr IV . [id number] [facility] Rx#:[id number] Fluconazole in NaCl,Iso- 50 Osm 100 mg In Saline 1 50ml.bag @ 50 mls/hr IVPB DAILY@1600 [facility] Rx#: [id number] Meropenem 1 gm In Sodium 100 100 Chloride 0.9% 100 ml @ 33 .3 mls/hr IVPB Q8HR [facility] Rx#:[id number] Pressure bag 72 78 Intake, IV Titration 49.167 Amount Diltiazem 125 mg In 49.167 Sodium Chloride 0.9% 100 ml @ 5 MG/HR 5 mls/hr IV .Q24H [facility] Rx#:[id number] Tube Feeding 62 Output: Urine 1245 1240 Stool 50 ABP, PAP, CO, CI - Last Documented Arterial Blood Pressure 128/52 - Exam General: Alert and oriented 2, sitting up in bed, conversing appropriately, weak Eyes: PERRL, EOMI, conjunctiva normal HENT: normocephalic, atraumatic Neck: supple, no JVD Lungs: normal respiratory effort, coarse rhonchi, fine bibasilar crackles ,no wheezes. CV: Regular rate and rhythm, no murmur. Peripheral pulses 2+, positive edema with trace edema lower extremities Abdomen: Distended, soft, ileostomy and urostomy, positive BS. Skin: warm and dry. - Labs CBC & Chem 7: 01/17/22 04:05 01/17/22 04:05 Labs: Abnormal Lab Results - Last 24 Hours (Table) 01/16/22 01/16/22 01/16/22 Range/Units 06:37 11:50 17:39 RBC (4.30-5.90) m/uL Hgb (13.0-17.5) gm/dL Hct (39.0-53.0) % MCHC (31.0-37.0) g/dL RDW (11.5-15.5) % Plt Count (150-450) k/uL Lymphocytes # (1.0-4.8) k/uL Sodium (137-145) mmol/L Potassium (3.5-5.1) mmol/L Chloride (98-107) mmol/L BUN (9-20) mg/dL Creatinine (0.66-1.25) mg/dL Glucose (74-99) mg/dL POC Glucose (mg/dL) 244 H 180 H (75-99) mg/dL Calcium (8.4-10.2) mg/dL Crossmatch See Detail 01/16/22 01/16/22 01/16/22 Range/Units 18:56 20:37 23:33 RBC 2.28 L (4.30-5.90) m/uL Hgb 7.0 L (13.0-17.5) gm/dL Hct 22.4 L (39.0-53.0) % MCHC (31.0-37.0) g/dL RDW 16.2 H (11.5-15.5) % Plt Count 145 L (150-450) k/uL Lymphocytes # (1.0-4.8) k/uL Sodium (137-145) mmol/L Potassium (3.5-5.1) mmol/L Chloride (98-107) mmol/L BUN (9-20) mg/dL Creatinine (0.66-1.25) mg/dL Glucose (74-99) mg/dL POC Glucose (mg/dL) 144 H 175 H (75-99) mg/dL Calcium (8.4-10.2) mg/dL Crossmatch 01/17/22 01/17/22 01/17/22 Range/Units 04:05 04:05 05:17 RBC 2.24 L (4.30-5.90) m/uL Hgb 6.9 L* (13.0-17.5) gm/dL Hct 22.3 L (39.0-53.0) % MCHC 30.8 L (31.0-37.0) g/dL RDW (11.5-15.5) % Plt Count 144 L (150-450) k/uL Lymphocytes # 0.3 L (1.0-4.8) k/uL Sodium 149 H (137-145) mmol/L Potassium 3.2 L (3.5-5.1) mmol/L Chloride 117 H (98-107) mmol/L BUN 106 H* (9-20) mg/dL Creatinine 2.15 H (0.66-1.25) mg/dL Glucose 147 H (74-99) mg/dL POC Glucose (mg/dL) 142 H (75-99) mg/dL Calcium 8.3 L (8.4-10.2) mg/dL Crossmatch Microbiology - Last 24 Hours (Table) 01/11/22 16:39 Blood Culture - Preliminary Blood No Growth after 120 hours Assessment and Plan Assessment: Septic shock secondary to Pseudomonas,repeat culture reported Proprionibacterium species bacteremia, etiology unclear, suspect abdomen Acute hypoxic respiratory failure secondary to the above,status post vent dependent. Hypotension, secondary to septic shock,status post pressor dependent Acute renal failure secondary to septic shock, hypotension hypernatremia anemia Atrial fibrillation with RVR, new onset-suspect related to septic shock and bacteremia, currently sinus rhythm Thrombocytopenia, HIT W/U in progress Hyperkalemia secondary to the above Labs acidosis secondary to septic shock with bacteremia Metabolic acidosis secondary to acute renal failure, currently on bicarb drip Incarcerated hernia status post colostomy creation Diabetes mellitus type 2 History of bladder cancer with previous urostomy Plan: Continue on current medication regime ,monitoring and symptomatic treatment. Potassium supplementation.Antiarrhythmics as per cardiology.Antibiotics as per ID.ICU management as per rn internship. Hypernatremia,IV fluids of D5W increased to 100ml/hr. Prognosis guarded given multiple complex medical issues. The impression and plan of care has been dictated as directed. : I performed a history and examination of this patient, discussed the same with the dictator. I agree with the dictator's note ,documented as a scribe. Any additional findings or plans will be noted.
[2022-01-17] MEDS: FLUCONAZOLE IN NACL,ISO-OSM 100 MG in SALINE 1 50ML.BAG IVPB SCH (15:59)
[2022-01-17 16:10] LABS: Potassium 3.7 mmol/L (3.5-5.1)
[2022-01-17 16:41] LABS: Glucose,Whole Blood 214 mg/dL (75-99)
--- NOTE | 2022-01-17 23:35 | P.PN ---
Subjective Progress Note Date: 01/17/22 Principal diagnosis: Pseudomonas bacteremia Patient is 72-year-old male, presented to hospital with abdominal pain has been diagnosed with strangulated parastomal hernia, in this patient was status post exploratory laparotomy, small bowel resection with ileostomy and re pair of incisional hernia patient was noticed to have a positive blood culture has been finalized with pseudomonas aeruginosa, patient was transferred to the ICU because of hypotension. On today's evaluation that is 01/17/2022, the patient continues to be afebrile, patient remains to be lethargic however he is breathing comfortably on nasal cannula oxygen, the patient is hemodynamically stable not requiring any pressor support, did have output in his ileostomy Objective - Vital Signs Vital signs: Vital Signs Temp 98.0 F 01/17/22 12:00 Pulse 89 01/17/22 13:00 Resp 34 H 01/17/22 13:00 BP 118/77 01/17/22 13:00 Pulse Ox 92 L 01/17/22 13:00 Intake & Output 01/16/22 01/17/22 01/17/22 18:59 06:59 18:59 Intake Total 1024 4558.490 2931 Output Total 1245 1440 1345 Balance -221 -132.833 -45 Weight 96.3 kg 96.3 kg Intake: IV 962 1258 750 .9 NS 110 120 60 Desmopressin Acetate 24 50 mcg In Sodium Chloride 0. 9% 50 ml @ 200 mls/hr IVPB ONCE ONE Rx#: [id number] Dextrose 5% in Water 1, 630 910 570 000 ml @ 70 mls/hr IV . [id number] [facility] Rx#:[id number] Fluconazole in NaCl,Iso- 50 Osm 100 mg In Saline 1 50ml.bag @ 50 mls/hr IVPB DAILY@1600 [facility] Rx#: [id number] Meropenem 1 gm In Sodium 100 100 Chloride 0.9% 100 ml @ 33 .3 mls/hr IVPB Q8HR [facility] Rx#:[id number] Pressure bag 72 78 120 Intake, IV Titration 49.167 Amount Diltiazem 125 mg In 49.167 Sodium Chloride 0.9% 100 ml @ 5 MG/HR 5 mls/hr IV .Q24H [facility] Rx#:[id number] Oral 550 Tube Feeding 62 Output: Urine 1245 1240 995 Stool 200 350 Other: Voiding Method Indwelling Catheter ABP, PAP, CO, CI - Last Documented Arterial Blood Pressure 118/41 - Exam GENERAL DESCRIPTION: An elderly male lying in bed in no distress RESPIRATORY SYSTEM: Unlabored breathing , decreased breath sounds at bases HEART: S1 S2 regular rate and rhythm , ABDOMEN: Soft , no tenderness EXTREMITIES: No edema feet - Labs CBC & Chem 7: 01/17/22 04:05 01/17/22 15:58 Labs: Abnormal Lab Results - Last 24 Hours (Table) 01/16/22 01/16/22 01/16/22 Range/Units 17:39 18:56 20:37 RBC 2.28 L (4.30-5.90) m/uL Hgb 7.0 L (13.0-17.5) gm/dL Hct 22.4 L (39.0-53.0) % MCHC (31.0-37.0) g/dL RDW 16.2 H (11.5-15.5) % Plt Count 145 L (150-450) k/uL Lymphocytes # (1.0-4.8) k/uL Sodium (137-145) mmol/L Potassium (3.5-5.1) mmol/L Chloride (98-107) mmol/L BUN (9-20) mg/dL Creatinine (0.66-1.25) mg/dL Glucose (74-99) mg/dL POC Glucose (mg/dL) 180 H 144 H (75-99) mg/dL Calcium (8.4-10.2) mg/dL 01/16/22 01/17/22 01/17/22 Range/Units 23:33 04:05 04:05 RBC 2.24 L (4.30-5.90) m/uL Hgb 6.9 L* (13.0-17.5) gm/dL Hct 22.3 L (39.0-53.0) % MCHC 30.8 L (31.0-37.0) g/dL RDW (11.5-15.5) % Plt Count 144 L (150-450) k/uL Lymphocytes # 0.3 L (1.0-4.8) k/uL Sodium 149 H (137-145) mmol/L Potassium 3.2 L (3.5-5.1) mmol/L Chloride 117 H (98-107) mmol/L BUN 106 H* (9-20) mg/dL Creatinine 2.15 H (0.66-1.25) mg/dL Glucose 147 H (74-99) mg/dL POC Glucose (mg/dL) 175 H (75-99) mg/dL Calcium 8.3 L (8.4-10.2) mg/dL 01/17/22 01/17/22 Range/Units 05:17 11:39 RBC (4.30-5.90) m/uL Hgb (13.0-17.5) gm/dL Hct (39.0-53.0) % MCHC (31.0-37.0) g/dL RDW (11.5-15.5) % Plt Count (150-450) k/uL Lymphocytes # (1.0-4.8) k/uL Sodium (137-145) mmol/L Potassium (3.5-5.1) mmol/L Chloride (98-107) mmol/L BUN (9-20) mg/dL Creatinine (0.66-1.25) mg/dL Glucose (74-99) mg/dL POC Glucose (mg/dL) 142 H 104 H (75-99) mg/dL Calcium (8.4-10.2) mg/dL Microbiology - Last 24 Hours (Table) 01/11/22 16:39 Blood Culture - Preliminary Blood No Growth after 120 hours Assessment and Plan (1) Bacteremia Current Visit: Yes Status: Acute Code(s): R78.81 - BACTEREMIA SNOMED Code(s): 8603581 Plan: 1-Patient with pseudomonas bacteremia source is likely abdominal and this patient presented to the hospital with incarcerated hernia status post small bowel resection and ileostomy and repair of the hernia patient did have worsening of his respiratory status requiring intubation, patient pseudomonas with intermediate sensitivity to Zosyn and cefepime,repeat blood culture did grew Propionibacterium for the patient is currently covered with the meropenem to continue and monitor clinical course closely 2-positive sputum culture with Vesta likely colonizer versus oropharyngeal candidiasis and is covered with the Diflucan Time with Patient: Less than 30
[2022-01-18 00:22] LABS: Glucose,Whole Blood 258 mg/dL (75-99)
[2022-01-18] MEDS: INSULIN ASPART (NovoLOG) 100 UNIT/ML VIAL SQ SCH ×4 (00:24→17:39)
[2022-01-18] MEDS: SODIUM CHLORIDE 0.9% 1,000 ML IV SCH (00:26)
[2022-01-18] MEDS: NOREPINEPHRINE 32 MG in SODIUM CHLORIDE 0.9% 218 ML IV SCH (05:01)
[2022-01-18 06:05] LABS: Glucose,Whole Blood 151 mg/dL (75-99)
[2022-01-18] MEDS: HYDROCORTISONE SUCCINATE 100 MG/2 ML VIAL IV SCH ×2 (06:10→17:39)
[2022-01-18] MEDS: INSULIN DETEMIR (LEVEMIR) 100 UNIT/ML SYR SQ SCH ×2 (06:10→20:17)
[2022-01-18] MEDS: IPRATROPIUM-ALBUTEROL 3 ML NEB INHALATION SCH ×3 (08:41→15:54)
[2022-01-18] MEDS: PANTOPRAZOLE 40 MG/10 ML VIAL IVP SCH (09:45)
[2022-01-18 10:24] LABS: Basophils % (A) 0 %; Eosinophils % (A) 0 %; HGB 7.3 gm/dL (13.0-17.5); Hypochromasia Moderate; Lymphocytes # (A) 0.2 k/uL (1.0-4.8); Lymphocytes % (A) 3 %; MCH 31.6 pg (25.0-35.0); MCHC 31.5 g/dL (31.0-37.0); MCV 100.4 fL (80.0-100.0); Macrocytosis Slight; Mean Platelet Volume 9.5; Monocytes # (A) 0.2 k/uL (0-1.0); Monocytes % (A) 2 %; Neutrophils # (A) 6.5 k/uL (1.3-7.7); Neutrophils % (A) 94 %; Platelet Count 146 k/uL (150-450); RBC 2.29 m/uL (4.30-5.90); RDW 15.5 % (11.5-15.5)
[2022-01-18 10:33] LABS: Calcium 8.2 mg/dL (8.4-10.2); Potassium 3.5 mmol/L (3.5-5.1)
[2022-01-18] MEDS ORDERED: SODIUM CHLORIDE 0.9% 1,000 ML IV ONE (10:55)
--- NOTE | 2022-01-18 11:30 | P.PN ---
Subjective Progress Note Date: 01/18/22 Principal diagnosis: This 72-year-old male seen in consultation with acute kidney injury. He had obstructive uropathy and septic shock, had pseudomonas aeruginosa bacteremia. His creatinine improved from a high of 3.8 on 01/07/2022, came down 2.15 yesterday to 1.89 this morning. Currently he is somewhat short of breath. His sodium has gone up from 148-152. He was on D5W. This morning he was started on normal saline because of blood pressures 84/52. Currently blood pressure is 109/53 He is short of breath. A chest x-ray done yesterday shows congestive heart failure, possibly worsening. Objective - Vital Signs Vital signs: Vital Signs Temp 97.6 F 01/18/22 08:00 Pulse 104 H 01/18/22 10:45 Resp 21 01/18/22 10:45 BP 109/53 01/18/22 11:08 Pulse Ox 95 01/18/22 10:45 Intake & Output 01/17/22 01/18/22 01/18/22 18:59 06:59 18:59 Intake Total 2300 469 Output Total 2295 475 100 Balance 5 -6 -100 Weight 96.3 kg Intake: IV 1400 469 .9 NS 110 40 Dextrose 5% in Water 1, 1070 400 000 ml @ 70 mls/hr IV . [id number] [facility] Rx#:[id number] Pressure bag 220 29 Oral 900 Output: Urine 1845 475 Stool 450 100 Other: Voiding Method Indwelling Catheter Indwelling Catheter Indwelling Catheter ABP, PAP, CO, CI - Last Documented Arterial Blood Pressure 108/42 On examination is awake alert somewhat in distress. He is on nasal cannula oxygen A chin exam no JVP neck is supple no facial asymmetry Lungs are significant for diminished breath sounds and occasional fine crackle at bases. Heart sounds unremarkable for any murmur rub gallop gallop is in atrial fibrillation Abdomen soft with both urine draining through the loop ileostomy as well as stool drainage through a ostomy bag Extremity exam reveals no edema Neurologically awake alert but generalized weakness somewhat anxious and in respiratory distress - Labs CBC & Chem 7: 01/18/22 10:03 01/18/22 10:03 Labs: Abnormal Lab Results - Last 24 Hours (Table) 01/17/22 01/17/22 01/17/22 Range/Units 11:39 15:58 16:39 RBC (4.30-5.90) m/uL Hgb (13.0-17.5) gm/dL Hct (39.0-53.0) % MCV (80.0-100.0) fL Plt Count (150-450) k/uL Lymphocytes # (1.0-4.8) k/uL Sodium 148 H (137-145) mmol/L Chloride (98-107) mmol/L BUN (9-20) mg/dL Creatinine (0.66-1.25) mg/dL POC Glucose (mg/dL) 104 H 214 H (75-99) mg/dL Calcium (8.4-10.2) mg/dL 01/18/22 01/18/22 01/18/22 Range/Units 00:21 06:00 10:03 RBC 2.29 L (4.30-5.90) m/uL Hgb 7.3 L (13.0-17.5) gm/dL Hct 23.0 L (39.0-53.0) % MCV 100.4 H (80.0-100.0) fL Plt Count 146 L (150-450) k/uL Lymphocytes # 0.2 L (1.0-4.8) k/uL Sodium (137-145) mmol/L Chloride (98-107) mmol/L BUN (9-20) mg/dL Creatinine (0.66-1.25) mg/dL POC Glucose (mg/dL) 258 H 151 H (75-99) mg/dL Calcium (8.4-10.2) mg/dL 01/18/22 Range/Units 10:03 RBC (4.30-5.90) m/uL Hgb (13.0-17.5) gm/dL Hct (39.0-53.0) % MCV (80.0-100.0) fL Plt Count (150-450) k/uL Lymphocytes # (1.0-4.8) k/uL Sodium 152 H (137-145) mmol/L Chloride 118 H (98-107) mmol/L BUN 101 H* (9-20) mg/dL Creatinine 1.89 H (0.66-1.25) mg/dL POC Glucose (mg/dL) (75-99) mg/dL Calcium 8.2 L (8.4-10.2) mg/dL Microbiology - Last 24 Hours (Table) 01/11/22 16:39 Blood Culture - Final Blood No Growth after 144 hours Assessment and Plan Assessment: Impression 1. Acute kidney injury secondary to combination of sepsis, bacteremia, creatinine improved to 1.89, from a peak of 3.8 on 01/07/2022 2. Hypernatremia sodium has gone up slowly over the last few days from 138 dated 01/08/2022 consistently 148 yesterday and 152 this morning. This is related to fluid loss and will reduce intake of free water 3. Anemia hemoglobin 7.3 4. Congestive heart failure. 5. Urine draining through a loop ileostomy and in ileostomy or colostomy. Recommendation 1. Discontinue IV fluids. 2. Use Lasix 40 mg IV 1 dose 3. Redo stat labs labs. Later today at 4 PM and results to be called stat to 4. Resume D5W at 75 an hour
[2022-01-18] MEDS: DILTIAZEM ORAL 60 MG TAB PO SCH ×2 (11:38→20:07)
[2022-01-18] MEDS: AMIODARONE 200 MG TAB PO SCH ×2 (11:38→20:07)
[2022-01-18] MEDS: ASPIRIN 81 MG PO SCH (11:38)
[2022-01-18] MEDS: FUROSEMIDE 10 MG/ML 4 ML VIAL IV SCH ×2 (11:49→20:07)
--- NOTE | 2022-01-18 11:51 | P.PN ---
Subjective Progress Note Date: 01/18/22 HISTORY OF PRESENT ILLNESS This is a 72-year-old gentleman with history of coronary artery disease with pr evious PCI, diabetes mellitus, hypertension and hyperlipidemia and also history of bladder cancer with urostomy. Patient is status post surgery for perforated viscus. Patient is also intubated. His echocardiogram showed an ejection fraction about 35-40% with global hypokinesia without any significant valvular abnormalities. Patient had an episode of A. fib but converted back to sinus rhythm. In the rhythm appears to be mostly is a sinus rhythm with APCs are multifocal atrial rhythm at this time. 01/14/2022: This patient is status post surgery for possible perforated viscus. Patient also has sepsis. We're following patient because of intermittent atrial fibrillation. Patient is currently on IV Cardizem 5 mg daily is maintaining sinus rhythm. His her multiple medications including antibiotics. Still on mechanical ventilator. His echo [place] showed ejection fraction 35-40%. W e'll continue current management. We'll follow. 01/15/2022: This patient with history of coronary artery disease, diabetes, hypertension and hypercholesterolemia who was admitted to the abdominal pain and was noted. Strength ablation of the small bowel in the parastomal hernia. Patient underwent surgical procedure including small bowel resection and ileostomy. Patient is also being treated for sepsis and bacteremia and also hypertension. patient had episodes of atrial fibrillation and was treated with amiodarone. Patient is on IV Cardizem and maintaining sinus rhythm. Patient had thrombocytopenia and also anemia. Platelet count is improving and seemed to be around 1 20,000. However, his hemoglobin dropped to 7.8. Patient needs to go on and decortication therapy because of his coronary artery disease and impaired LV function. He was okay with the surgical team, patient to be co nstricted for Eliquis 5 mg by mouth twice a day. However, his platelet counts and hemoglobin 8 followed closely. 01/16/2022: This patient is extubated today. Is awake but seemed to be weak and frail. Patient is afebrile. So far his maintaining sinus rhythm. He is on anticoagulation therapy is also on IV Cardizem. We'll switch to by mouth Cardizem. He is also on amiodarone 400 mg by mouth twice a day. We will taper the amiodarone to 200 mg by mouth twice a day from tomorrow. Chest x-ray shows bilateral infiltrates. Apparently blood cultures have been negative. His hemoglobin dropped to 6.8. Surgical team is following. Plan is to repeat hemoglobin in the afternoon. If hemoglobin evidence for the, may have to discontinue anticoagulation. Further examination depend upon clinical course. 01/17/2022: Patient remained extubated. He seemed to be more alert, maintaining oxygen saturation. Chest x-ray shows stable findings. Patient seemed to maintaining sinus rhythm. He is on by mouth Cardizem and amiodarone. I will cut back the dose of amiodarone and tomorrow to 200 mg by mouth twice a day. Potassium is low which is being corrected. He is also on anti-cognition thera py. Hemoglobin is maintaining about 6.8-7 g range. Rest of the management as for intensivists 01/18: Patient has been transferred out of the intensive care unit and seen today on the cardiac stepdown unit. Patient has transition from atrial fibrillation to sinus rhythm. He has been started on anticoagulation with eliquis. He is currently on amiodarone 400 mg twice daily and will maintain this dose for another 24 hours PHYSICAL EXAMINATION GENERAL EXAM: Patient is resting in bed and appears to be comfortable. No acute respiratory distress noted. HEENT: Normocephalic. Normal reaction of pupils, equal size, normal range of extraocular motion. No erythema or exudates in the throat. NECK: No masses, no nuchal rigidity. CHEST: No chest wall deformity. LUNGS: Diminished air exchange HEART: S1 and S2 normal . Distant heart sounds ABDOMEN: No hepatosplenomegaly, normal bowel sounds, no guarding or rigidity. SKIN: No rashes CENTRAL NERVOUS SYSTEM: Deferred EXTREMITIES: No cyanosis, clubbing or edema. ASSESSMENT Atrial fibrillation with RVR, paroxysmal atrial fibrillation, currently in sinus rhythm Bowel perforation Acute kidney injury Chronic kidney disease Hypernatremia Septic shock secondary to Pseudomonas PLAN Maintain patient on amiodarone 400 mg twice daily and eliquis 5 mg twice daily, aspirin 81 mg daily, Cardizem 60 mg twice daily Lasix 40 mg IV every 12 hours per nephrology Further recommendations to follow based upon clinical course Thank you kindly for this consultation. Nurse practitioner note has been reviewed, I agree with documented findings and plan of care. Patient was seen and examined. Objective - Vital Signs Vital signs: Vital Signs Temp 97.6 F 01/18/22 08:00 Pulse 80 01/18/22 08:54 Resp 26 H 01/18/22 08:00 BP 103/49 01/18/22 08:00 Pulse Ox 93 L 01/18/22 08:00 Intake & Output 01/17/22 01/18/22 01/18/22 18:59 06:59 18:59 Intake Total 2300 469 Output Total 2295 475 Balance 5 -6 Weight 96.3 kg Intake: IV 1400 469 .9 NS 110 40 Dextrose 5% in Water 1, 1070 400 000 ml @ 70 mls/hr IV . [id number] [facility] Rx#:[id number] Pressure bag 220 29 Oral 900 Output: Urine 1845 475 Stool 450 Other: Voiding Method Indwelling Catheter Indwelling Catheter ABP, PAP, CO, CI - Last Documented Arterial Blood Pressure 108/42 - Labs CBC & Chem 7: 01/18/22 10:03 01/18/22 10:03 Labs: Abnormal Lab Results - Last 24 Hours (Table) 01/17/22 01/17/22 01/17/22 Range/Units 11:39 15:58 16:39 Sodium 148 H (137-145) mmol/L POC Glucose (mg/dL) 104 H 214 H (75-99) mg/dL 01/18/22 01/18/22 Range/Units 00:21 06:00 Sodium (137-145) mmol/L POC Glucose (mg/dL) 258 H 151 H (75-99) mg/dL Microbiology - Last 24 Hours (Table) 01/11/22 16:39 Blood Culture - Final Blood No Growth after 144 hours
[2022-01-18] MEDS: MEROPENEM 1 GM in SODIUM CHLORIDE 0.9% 100 ML IVPB SCH ×2 (11:55→18:31)
[2022-01-18 12:17] LABS: Glucose,Whole Blood 84 mg/dL (75-99)
[2022-01-18] MEDS: MIDODRINE 5 MG TAB PO SCH ×2 (14:29→17:40)
[2022-01-18] MEDS: APIXABAN 5 MG TAB PO SCH ×2 (15:30→20:07)
[2022-01-18] MEDS: DEXTROSE 5% IN WATER 1,000 ML IV SCH ×3 (16:03→22:01)
--- NOTE | 2022-01-18 16:27 | P.PN ---
Subjective Progress Note Date: 01/18/22 Principal diagnosis: Respiratory failure. Reevaluated today on 01/10/2022, patient remains in the ICU, intubated and mechanically ventilated sedated, but not paralyzed. Patient is on assist control mode of mechanical ventilation rate of 20, volume 500 FiO2 40% and PEEP of 8. ABG showed a pO2 of 106 pCO2 45 pH of 7.45. Patient is still requiring hemodynamic support, he is on vasopressin at 0.03 units per minute, norepinephrine at 0.24 mcg/kg/m. Total of 22 mcg/m. He is on fentanyl at 2 mcg/kg/m. And on propofol at 35 mcg/kg/m. Chest x-ray continues to show bilateral interstitial edema and/or infiltrates. Patient received significant amount of fluids on his initial presentation when he was septic and hypotensive, later on he was placed on pressors in the form of vasopressin and norepinephrine. CVP today is 8, hence no need for more fluids and no need for aggressive diuresis. Patient remains on bicarb drip at 50 mL per hour, and I will go ahead and discontinue bicarbonate based on his electrolytes and based on his ABG. His bicarb is 31. Renal profile today is improving, it was as high as 3.8, creatinine now is 2.72. WBC count is 4.5 hemoglobin is 8.6. Patient remains on Zosyn for his Pseudomonas bacteremia and I believe the most likely source of his Pseudomonas is his GI tract patient remains on GI and DVT prophylaxis. Platelets are 98,000, not unexpected considering the patient is septic and has septic shock on presentation Reevaluated today on 01/11/2022, patient remains in the ICU, intubated and mechanically ventilated. He is on assist control rate of 2012 volume 500 FiO2 40% and PEEP of 8. Today I cut down the PEEP down to 6. ABG showed a pO2 of 135 pCO2 41 pH of 7.46. WBC count is 5.4 hemoglobin 8.5. Electrolytes are normal, renal profile is improving with a BUN 63 creatinine is down to 2.53. Creatinine was as high as 3.80 few days ago. Chest x-ray continues to show bilateral interstitial infiltrates/interstitial edema but nonetheless it is improving. Patient remains empirically on antibiotics for his Pseudomonas bacteremia and sepsis as well as septic shock. His platelets are noted to go down further today, hence I'm holding the heparin, patient will have Venodyne boots, and we will order a heparin-induced thrombocytopenia profile. Noted today that the patient was changed to Merrem instead of Zosyn. Mostly because the sensitivity on the pseudomonas seems to be intermediate to Zosyn. However it is sensitive to Merrem. Patient is still requiring norepinephrine he is on 0.21 mcg/kg/minute, and he is off vasopressin. I have a feeling that the patient will likely even though much less on norepinephrine if we cut down his sedation especially his fentanyl. And I plan to do so. We'll try to manage the patient's sedation only with propofol if possible. Reevaluated today on 01/12/2022, patient remains in the ICU, intubated and mechanically ventilated. Patient is on assist control rate of 20, volume 500 FiO2 40% and PEEP of 6. ABG showed a pO2 of 97 pCO2 42 pH of 7.45. Chest x-ray continues to show bilateral infiltrates, and possibly some component of interstitial edema. His WBC count is 8.7 hemoglobin is 8.1 and hematocrit is 25.7. Patient remains on propofol at 50 mcg/kg/m, remains on norepinephrine at 0.25, IV fluids at 75 mL per hour. Electrolytes showed low potassium of 3.4, BUN is 66 creatinine is 2.18, steadily improving. Patient is receiving Nepro and he is still on TPN. Platelets are down to 83, patient remains off heparin even subcu heparin. Workup for heparin-induced thrombocytopenia is pending. Patient remains on Merrem for pseudomonas aeruginosa bacteremia sepsis and septic shock. Progress note dated 01/13/2022. 72-year-old male, again seen in room 261. The patient was initially admitted back on 01/06, for abdominal pain, and an incarcerated hernia. The patient went to the operating room on 01/06, for exploratory laparotomy and ileostomy. The patient was extubated successfully, but came to the intensive care unit on 01/07/2022, and was intubated on 01/07/2022. The patient remains on the mechanical ventilator. Blood cultures show evidence of Pseudomonas. Currently, he's on meropenem and fluconazole. He will get some Lasix IV push today, as he is quite edematous. Current ventilator settings include the volume assist control mode, rate 20, tidal volume 500, FiO2 40%, and PEEP of 6. Arterial blood gases show pO2 101, pCO2 42, and pH 7.45. The patient remains on norepinephrine at 25 mcg/m, propofol at 35 mcg/kg/m, TPN at 60 mL an hour, tube feedings with Nepro at 20 mL an hour, and saline at 25 mL an hour. Because of the ongoing use of norepinephrine, I asked the nurses to draw a stat TSH and random cortisol. Current laboratory data includes a sodium 143, potassium 3.6, chlorides 112, CO2 27, anion gap 4, BUN 73, and creatinine 2.09. Blood cultures from January 06 and January 07 both show evidence of pseudomonas aeruginosa. Chest x-ray shows diffuse bilateral infiltrates. Progress note dated 01/18/2022. 72-year-old male seen on the general medical floor, room 374. He was moved out of the intensive care unit yesterday. The patient was initially admitted back on January 06 for abdominal pain, and an incarcerated hernia. The patient went to the operating room on the same day, for exploratory laparotomy and ileostomy. The patient was successfully extubated but came to the intensive care unit on 01/07/2022, and was intubated on the same day. More recently, the patient was again extubated, and was transferred out of the intensive care unit. The patient's currently on 2 L nasal cannula, with adequate saturations. Apparently after leaving the intensive care unit, the patient's wound apparently dehisced, and his blood pressure has been steadily dropping. The patient is not to be reintubated according to family members. White count is 7, hemoglobin 7.3, hematocrit 23, platelet count 146,000. Sodium 152, potassium 3.5, chlorides 118, CO2 26, anion gap 8, BUN 101, and creatinine 1.89. Calcium is 8.2. Objective - Vital Signs Vital signs: Vital Signs Temp 97.6 F 01/18/22 08:00 Pulse 110 H 01/18/22 16:05 Resp 20 01/18/22 14:00 BP 95/53 01/18/22 15:42 Pulse Ox 95 01/18/22 10:45 Intake & Output 01/17/22 01/18/22 01/18/22 18:59 06:59 18:59 Intake Total 2300 469 Output Total 2295 475 1700 Balance 5 -6 -1700 Weight 96.3 kg Intake: IV 1400 469 .9 NS 110 40 Dextrose 5% in Water 1, 1070 400 000 ml @ 70 mls/hr IV . [id number] [facility] Rx#:[id number] Pressure bag 220 29 Oral 900 Output: Urine 0189 181 3099 Stool 450 100 Other: Voiding Method Indwelling Catheter Indwelling Catheter Indwelling Catheter ABP, PAP, CO, CI - Last Documented Arterial Blood Pressure 108/42 - Exam No acute distress, currently on 2 L nasal cannula. No respiratory difficulty or distress. HEENT examination is grossly unremarkable. Neck supple. Full range of motion. No adenopathy thyromegaly or neck vein distention. Cardiovascular examination reveals regular rhythm rate. S1-S2 normal. No S3 or S4. No discernible murmur noted. Heart sounds are distant. Heart rate 110 bpm. Lungs reveal coarse bilateral rhonchi. Breath sounds equal. No wheezes or crackles. Saturations are 95% on 2 L. Abdomen soft, without bowel sounds. A urostomy bag and a ileostomy bag is noted. Extremities are intact. No cyanosis or clubbing. Diffuse anasarca is noted. Skin is without rash or lesion. Neurologic examination is brief but nonfocal. - Labs CBC & Chem 7: 01/18/22 10:03 01/18/22 10:03 Labs: Abnormal Lab Results - Last 24 Hours (Table) 01/17/22 01/18/22 01/18/22 Range/Units 16:39 00:21 06:00 RBC (4.30-5.90) m/uL Hgb (13.0-17.5) gm/dL Hct (39.0-53.0) % MCV (80.0-100.0) fL Plt Count (150-450) k/uL Lymphocytes # (1.0-4.8) k/uL Sodium (137-145) mmol/L Chloride (98-107) mmol/L BUN (9-20) mg/dL Creatinine (0.66-1.25) mg/dL POC Glucose (mg/dL) 214 H 258 H 151 H (75-99) mg/dL Calcium (8.4-10.2) mg/dL 01/18/22 01/18/22 Range/Units 10:03 10:03 RBC 2.29 L (4.30-5.90) m/uL Hgb 7.3 L (13.0-17.5) gm/dL Hct 23.0 L (39.0-53.0) % MCV 100.4 H (80.0-100.0) fL Plt Count 146 L (150-450) k/uL Lymphocytes # 0.2 L (1.0-4.8) k/uL Sodium 152 H (137-145) mmol/L Chloride 118 H (98-107) mmol/L BUN 101 H* (9-20) mg/dL Creatinine 1.89 H (0.66-1.25) mg/dL POC Glucose (mg/dL) (75-99) mg/dL Calcium 8.2 L (8.4-10.2) mg/dL Microbiology - Last 24 Hours (Table) 01/11/22 16:39 Blood Culture - Final Blood No Growth after 144 hours Assessment and Plan Assessment: 1 Acute abdominal pain secondary to parastomal hernia containing small bowel demonstrating pneumobilia suggesting strangulation small bowel with possible perforation. Subcutaneous gas which may represent superimposed infection. No organizing fluid collection of the time to suggest abscess. Status post exploratory laparotomy, repair of strangulated parastomal hernia, small bowel resection with ileostomy, repair of incisional hernia performed on 01/06/2022. 2 Sepsis with bacteremia secondary to pseudomonas aeruginosa Follow-up blood cultures revealing no growth. 3 Acute hypoxemic respiratory failure secondary to above requiring prolonged intubation. Extubated on 01/16/2022. 4 Lactic acidosis, resolved. 5 Acute renal failure. 6 Hyperkalemia secondary to above. 7 History of bladder cancer with previous urostomy. 8 Diabetes mellitus. 9 Hyperlipidemia. 10 BPH. 11 Visual disorder. 12 Coronary artery disease with previous stent placement. 13 Chronic tobacco dependence. 14 Anemia. 15 Thrombocytopenia. 16 Hypernatremia. Plan: Plan dated 01/13/2022. The patient will have a stat TSH and cortisol level sent. The patient remains on antibiotic for Pseudomonas bacteremia. Labs, x-rays, and medications are all reviewed. The patient's postop day #7. Patient was intubated for respiratory failure on 01/07/2022. We continue with postoperative ventilator management. We will continue to follow make recommendations where appropriate. Prognosis is very guarded. Plan dated 01/18/2022. The patient was transferred out of the ICU yesterday. He is postop day number 12. According to the family, the patient is not to be reintubated. The patient remains on antibiotics in the form of daptomycin and meropenem. We will continue to follow make recommendations where appropriate. Unnecessary medications were discontinued. We added midodrine for blood pressure. Prognosis remains guarded. Saturations are 95% on 2 L nasal cannula. Time with Patient: Less than 30
--- NOTE | 2022-01-18 16:40 | P.PN ---
Subjective Progress Note Date: 01/18/22 CHIEF COMPLAINT: Strangulated parastomal hernia HISTORY OF PRESENT ILLNESS: The patient is a 72-year-old male with complicated history of strangulated parastomal hernia, urostomy, ileostomy including sepsis with septic shock. Patient was in intensive care unit now on the floor this morning. Earlier this morning, I was notified by nurse that patient was hypotensive with systolic blood pressure in the 80s. Patient is being followed by infectious disease, cardiology, pulmonary team as well. ROS: Recent septic shock with hypotension New-onset atrial fibrillation. History of urostomy. Congestive heart failure PHYSICAL EXAM: VITAL SIGNS: Reviewed CONSTITUTIONAL: Well developed and in no acute distress. EYES: Conjuctivae without sclera icterus. Extraocular movements grossly intact. HEAD, EARS, NOSE, THROAT: Moist buccal mucosa. Head is atraumatic, normocephalic. Hears conversational speech. No nasal drainage. RESPIRATORY: Labored respirations and equal bilateral excursions. CARDIOVASCULAR: Palpable 2+ radial pulses. ABDOMEN: Urostomy, ileostomy patent. Wound already opened and mid and inferior portion with yuliya absent. No malodorous, purulent drainage. Fascia intact. MUSCULOSKELETAL: No gross deformity of the lower extremities noted. No clubbing. No cyanosis. SKIN: Good skin turgor. Well perfused. NEUROLOGIC: Cranial nerves II through XII grossly intact. No focal or lateralizing signs. PSYCH: Alert to person. CLINICAL LABS: Reviewed. WBC normal 7.0. Hemoglobin low with anemia 7.3. Prior hemoglobin 6.9. Creatinine improved to 0.15-1.9. ASSESSMENT: 1. Parastomal hernia with strangulation 2. Ileostomy 3. Urostomy 4. Hypotension PLAN: 1. Continue IV antibiotics. 2. Continue supportive care with volume expanders. 3. Normal saline ordered 4. Patient at risk for volume overload and may have adrenal suppression. BNP level being obtained and may need recent cortisol level check. 5. Wound cultures were obtained by nursing for infectious disease team. Objective - Vital Signs Vital signs: Vital Signs Temp 97.6 F 01/18/22 08:00 Pulse 119 H 01/18/22 12:43 Resp 21 01/18/22 10:45 BP 95/53 01/18/22 13:12 Pulse Ox 95 01/18/22 10:45 Intake & Output 01/17/22 01/18/22 01/18/22 18:59 06:59 18:59 Intake Total 2300 469 Output Total 2295 475 1700 Balance 5 -6 -1700 Weight 96.3 kg Intake: IV 1400 469 .9 NS 110 40 Dextrose 5% in Water 1, 1070 400 000 ml @ 70 mls/hr IV . [id number] [facility] Rx#:[id number] Pressure bag 220 29 Oral 900 Output: Urine 7286 714 8479 Stool 450 100 Other: Voiding Method Indwelling Catheter Indwelling Catheter Indwelling Catheter ABP, PAP, CO, CI - Last Documented Arterial Blood Pressure 108/42 - Labs CBC & Chem 7: 01/18/22 10:03 01/18/22 10:03 Labs: Abnormal Lab Results - Last 24 Hours (Table) 01/17/22 01/17/22 01/18/22 Range/Units 15:58 16:39 00:21 RBC (4.30-5.90) m/uL Hgb (13.0-17.5) gm/dL Hct (39.0-53.0) % MCV (80.0-100.0) fL Plt Count (150-450) k/uL Lymphocytes # (1.0-4.8) k/uL Sodium 148 H (137-145) mmol/L Chloride (98-107) mmol/L BUN (9-20) mg/dL Creatinine (0.66-1.25) mg/dL POC Glucose (mg/dL) 214 H 258 H (75-99) mg/dL Calcium (8.4-10.2) mg/dL 01/18/22 01/18/22 01/18/22 Range/Units 06:00 10:03 10:03 RBC 2.29 L (4.30-5.90) m/uL Hgb 7.3 L (13.0-17.5) gm/dL Hct 23.0 L (39.0-53.0) % MCV 100.4 H (80.0-100.0) fL Plt Count 146 L (150-450) k/uL Lymphocytes # 0.2 L (1.0-4.8) k/uL Sodium 152 H (137-145) mmol/L Chloride 118 H (98-107) mmol/L BUN 101 H* (9-20) mg/dL Creatinine 1.89 H (0.66-1.25) mg/dL POC Glucose (mg/dL) 151 H (75-99) mg/dL Calcium 8.2 L (8.4-10.2) mg/dL Microbiology - Last 24 Hours (Table) 01/11/22 16:39 Blood Culture - Final Blood No Growth after 144 hours
[2022-01-18 16:43] LABS: Calcium 7.9 mg/dL (8.4-10.2); Potassium 3.2 mmol/L (3.5-5.1)
[2022-01-18] MEDS: FLUCONAZOLE IN NACL,ISO-OSM 100 MG in SALINE 1 50ML.BAG IVPB SCH (16:57)
[2022-01-18 18:11] LABS: Glucose,Whole Blood 153 mg/dL (75-99)
[2022-01-18 19:55] LABS: Glucose,Whole Blood 153 mg/dL (75-99)
[2022-01-18] MEDS: POTASSIUM CHLORIDE 20 MEQ in WATER FOR INJECTION 1 100ML.BAG IVPB SCH ×2 (20:06→22:00)
--- NOTE | 2022-01-18 21:57 | P.PN ---
Subjective This is a pleasant 72 years old male with multiple medical problems presents with signs and symptoms of strangulated parastomal abdominal hernia status post surgical repair with small bowel resection and ileostomy on 01/06. With evidence of intra-abdominal infection, possible aspiration pneumonia and UTI, with pseudomonas bacteremia and propionibacterum bacteremia covered with meropenem and IV daptomycin with infectious disease team on the case. His hospital course is complicated with A. fib and RVR, currently rate controlled with amiodarone 400 mg and Cardizem 60 mg twice a day as well as he is on Eliquis 5 mg. His hypernatremia is been treated with D5W at 75 mL/h. Also he is on IV Lasix for evidence of CHF on chest x-ray. Adrenal deficiency is suspected and he is currently on Karina U Cortef 50 mg twice a day. Also medodrine is added for borderline blood pressure. Glucose is controlled. Patient looks very weak and tired and low volume sound but looks appropriate, at bedside and states he tolerates bowel well and STEMI back is working Chest x-ray showing bilateral infiltrates suspicious for CHF versus pneumonia. Hemoglobin 7.3, creatinine improved to 3.1 down to 1.9. Sodium 149. He is tachycardic at and at 110, blood pressure 92/46 and his fever subsided Objective - Vital Signs Vital signs: Vital Signs Temp 97.6 F 01/18/22 08:00 Pulse 112 H 01/18/22 12:23 Resp 21 01/18/22 10:45 BP 108/51 01/18/22 12:08 Pulse Ox 95 01/18/22 10:45 Intake & Output 01/17/22 01/18/22 01/18/22 18:59 06:59 18:59 Intake Total 2300 469 Output Total 2295 475 1700 Balance 5 -6 -1700 Weight 96.3 kg Intake: IV 1400 469 .9 NS 110 40 Dextrose 5% in Water 1, 1070 400 000 ml @ 70 mls/hr IV . [id number] [facility] Rx#:[id number] Pressure bag 220 29 Oral 900 Output: Urine 9473 369 5526 Stool 450 100 Other: Voiding Method Indwelling Catheter Indwelling Catheter Indwelling Catheter ABP, PAP, CO, CI - Last Documented Arterial Blood Pressure 108/42 - Exam - GENERAL: The patient is alert and oriented x3, not in any acute distress. Well very weak HEENT: Pupils are round and equally reacting to light. EOMI. No scleral icterus. No conjunctival pallor. Normocephalic, atraumatic. No pharyngeal erythema. No thyromegaly. CARDIOVASCULAR: S1 and S2 present. No murmurs, rubs, or gallops. -PULMONARY: Chest is clear to auscultation, mild Bilaterall basal crepitations - ABDOMEN: Soft, nontender, nondistended, normoactive bowel sounds. No palpable organomegaly. Ileostomy back in place MUSCULOSKELETAL: No joint swelling or deformity. EXTREMITIES: No cyanosis, clubbing, or pedal edema. NEUROLOGICAL: Gross neurological examination did not reveal any focal deficits. SKIN: No rashes. no petechiae. - Labs CBC & Chem 7: 01/18/22 10:03 01/18/22 16:18 Labs: Abnormal Lab Results - Last 24 Hours (Table) 01/17/22 01/17/22 01/18/22 Range/Units 15:58 16:39 00:21 RBC (4.30-5.90) m/uL Hgb (13.0-17.5) gm/dL Hct (39.0-53.0) % MCV (80.0-100.0) fL Plt Count (150-450) k/uL Lymphocytes # (1.0-4.8) k/uL Sodium 148 H (137-145) mmol/L Chloride (98-107) mmol/L BUN (9-20) mg/dL Creatinine (0.66-1.25) mg/dL POC Glucose (mg/dL) 214 H 258 H (75-99) mg/dL Calcium (8.4-10.2) mg/dL 01/18/22 01/18/22 01/18/22 Range/Units 06:00 10:03 10:03 RBC 2.29 L (4.30-5.90) m/uL Hgb 7.3 L (13.0-17.5) gm/dL Hct 23.0 L (39.0-53.0) % MCV 100.4 H (80.0-100.0) fL Plt Count 146 L (150-450) k/uL Lymphocytes # 0.2 L (1.0-4.8) k/uL Sodium 152 H (137-145) mmol/L Chloride 118 H (98-107) mmol/L BUN 101 H* (9-20) mg/dL Creatinine 1.89 H (0.66-1.25) mg/dL POC Glucose (mg/dL) 151 H (75-99) mg/dL Calcium 8.2 L (8.4-10.2) mg/dL Microbiology - Last 24 Hours (Table) 01/11/22 16:39 Blood Culture - Final Blood No Growth after 144 hours Assessment and Plan Assessment: Strangulated parastomal hernia status post surgical resection of the small bowel and hernia repair with ileostomy on 01/06 Pseudomonas,repeat culture reported Proprionibacterium species bacteremia, secondary to intra-abdominal infection Hypotension, secondary to sepsis, currently on midodrine Acute renal failure, improving hypernatremia anemia Atrial fibrillation with RVR, new on Eliquis and amiodarone and Cardizem Thrombocytopenia Adrenal insufficiency Diabetes mellitus type 2 History of bladder cancer with previous urostomy Plan: This is a pleasant 72 years old male status post hernia repair, bacteremia, hypernatremia, kidney injury and A. fib. Continue with antibiotic, currently on meropenem on daptomycin Continue with the Eliquis, amiodarone and Cardizem Continue with D5W and monitor sodium level Continue with IV Lasix Continue with Solu-Cortef He is on midodrine Consulting us on the case including pulmonary, infectious disease, cardiology as well as nephrology. Also surgery primary team Labs and medication were reviewed.. Continue same treatment. Continue with symptomatic treatment. Resume home medication. Monitor lytes and vitals. DVT and GI prophylaxis. Further recommendations as per clinical course of the patient DVT prophylaxis: Eliquis GI Prophylaxis: Ppi Prognosis is guarded
[2022-01-19 00:01] LABS: Glucose,Whole Blood 130 mg/dL (75-99)
[2022-01-19] MEDS: INSULIN ASPART (NovoLOG) 100 UNIT/ML VIAL SQ SCH ×4 (00:10→17:43)
[2022-01-19] MEDS: MEROPENEM 1 GM in SODIUM CHLORIDE 0.9% 100 ML IVPB SCH ×3 (00:12→17:27)
[2022-01-19] MEDS: POTASSIUM CHLORIDE 20 MEQ in WATER FOR INJECTION 1 100ML.BAG IVPB SCH ×5 (00:12→22:23)
[2022-01-19 06:04] LABS: Glucose,Whole Blood 72 mg/dL (75-99)
[2022-01-19] MEDS: INSULIN DETEMIR (LEVEMIR) 100 UNIT/ML SYR SQ SCH ×3 (06:17→22:19)
[2022-01-19] MEDS: MIDODRINE 5 MG TAB PO SCH ×3 (06:33→17:27)
[2022-01-19] MEDS: HYDROCORTISONE SUCCINATE 100 MG/2 ML VIAL IV SCH ×3 (06:33→22:19)
--- NOTE | 2022-01-19 09:22 | P.PN ---
Subjective Progress Note Date: 01/19/22 Principal diagnosis: This 72-year-old male seen in consultation with acute kidney injury. He has a value loop ostomy with obstructive uropathy and septic shock, had pseudomonas ae ruginosa bacteremia. His creatinine improved from a high of 3.8 on 01/07/2022, to 1.89 as of yesterd ay Currently he is feeling much there are less short of breath. Yesterday because of shortness of breath is IV fluids were discontinued and he was given IV Lasix. He is currently on D5W because of hyponatremia sodium was 152 Blood pressures in the 90s to 110s, heart rate 110s, 24-hour intake is not recorded and output is 2600 Objective - Vital Signs Vital signs: Vital Signs Temp 97.8 F 01/19/22 07:50 Pulse 103 H 01/19/22 07:50 Resp 21 01/19/22 07:50 BP 97/53 01/19/22 07:50 Pulse Ox 99 01/19/22 07:50 Intake & Output 01/18/22 01/19/22 01/19/22 18:59 06:59 18:59 Intake Total 0 Output Total 2600 Balance -2600 0 Intake: Oral 0 Output: Urine 2500 Suprapubic 900 Stool 100 Other: Voiding Method Indwelling Catheter Ileal Conduit (Right) ABP, PAP, CO, CI - Last Documented Arterial Blood Pressure 108/42 Examination he remains short of breath and has profound weakness. HEENT exam no JVP, no facial asymmetry Lungs are significant for bilateral fine crackles at bases fairly good air entry Heart sounds unremarkable for any murmur rub gallop Abdomen soft nontender Extremity examination reveals minimal edema Neurologically performed weakness - Labs CBC & Chem 7: 01/18/22 10:03 01/18/22 16:18 Labs: Abnormal Lab Results - Last 24 Hours (Table) 01/18/22 01/18/22 01/18/22 Range/Units 10:03 10:03 16:18 RBC 2.29 L (4.30-5.90) m/uL Hgb 7.3 L (13.0-17.5) gm/dL Hct 23.0 L (39.0-53.0) % MCV 100.4 H (80.0-100.0) fL Plt Count 146 L (150-450) k/uL Lymphocytes # 0.2 L (1.0-4.8) k/uL Sodium 152 H 149 H (137-145) mmol/L Potassium 3.2 L (3.5-5.1) mmol/L Chloride 118 H 117 H (98-107) mmol/L BUN 101 H* 95 H (9-20) mg/dL Creatinine 1.89 H 1.93 H (0.66-1.25) mg/dL Glucose 134 H (74-99) mg/dL POC Glucose (mg/dL) (75-99) mg/dL Calcium 8.2 L 7.9 L (8.4-10.2) mg/dL 01/18/22 01/18/22 01/18/22 Range/Units 18:09 19:53 23:59 RBC (4.30-5.90) m/uL Hgb (13.0-17.5) gm/dL Hct (39.0-53.0) % MCV (80.0-100.0) fL Plt Count (150-450) k/uL Lymphocytes # (1.0-4.8) k/uL Sodium (137-145) mmol/L Potassium (3.5-5.1) mmol/L Chloride (98-107) mmol/L BUN (9-20) mg/dL Creatinine (0.66-1.25) mg/dL Glucose (74-99) mg/dL POC Glucose (mg/dL) 153 H 153 H 130 H (75-99) mg/dL Calcium (8.4-10.2) mg/dL 01/19/22 Range/Units 06:02 RBC (4.30-5.90) m/uL Hgb (13.0-17.5) gm/dL Hct (39.0-53.0) % MCV (80.0-100.0) fL Plt Count (150-450) k/uL Lymphocytes # (1.0-4.8) k/uL Sodium (137-145) mmol/L Potassium (3.5-5.1) mmol/L Chloride (98-107) mmol/L BUN (9-20) mg/dL Creatinine (0.66-1.25) mg/dL Glucose (74-99) mg/dL POC Glucose (mg/dL) 72 L (75-99) mg/dL Calcium (8.4-10.2) mg/dL Microbiology - Last 24 Hours (Table) 01/18/22 14:15 Gram Stain - Preliminary Abdomen Wound Culture - Preliminary Assessment and Plan Assessment: Impression 1. Acute kidney injury secondary to combination of sepsis, bacteremia, creatinine improved to 1.89, from a peak of 3.8 on 01/07/2022. Today's labs are pending 2. Hypernatremia , secondary to decreased free water intake and acute kidney injury, sodium was 152 yesterday started on D5W. Sodium was 149 last night after starting D5W 3. Anemia hemoglobin 7.3 4. Congestive heart failure. Responded to Lasix with good urine output 5. Urine draining through a loop ileostomy and in ileostomy or colostomy. 6. Hypokalemia secondary to diuretics with a potassium is 3.2 as of this Recommendation 1. Continue Lasix, increase dose 40 every 12 2. Continue D5W at 75 an hour 3. Replace potassium 60 mEq total. 4. Monitor labs intake and output closely
[2022-01-19] MEDS ORDERED: FUROSEMIDE 10 MG/ML 2 ML VIAL IV SCH (09:30)
[2022-01-19 09:34] LABS: Calcium 8.2 mg/dL (8.4-10.2); Potassium 3.4 mmol/L (3.5-5.1)
[2022-01-19] MEDS: FUROSEMIDE 10 MG/ML 4 ML VIAL IV SCH ×2 (09:49→22:13)
[2022-01-19] MEDS: SCOPOLAMINE 1.5MG/72HR PATCH TRANSDERM SCH (09:49)
[2022-01-19] MEDS: PANTOPRAZOLE 40 MG/10 ML VIAL IVP SCH (09:49)
[2022-01-19 10:09] LABS: Basophils % (A) 0 %; Eosinophils # (A) 0.1 k/uL (0-0.7); Eosinophils % (A) 1 %; HCT 25.2 % (39.0-53.0); HGB 7.4 gm/dL (13.0-17.5); Hypochromasia Marked; Lymphocytes # (A) 0.3 k/uL (1.0-4.8); Lymphocytes % (A) 4 %; MCH 30.1 pg (25.0-35.0); MCHC 29.2 g/dL (31.0-37.0); Macrocytosis Moderate; Mean Platelet Volume 9.8; Monocytes # (A) 0.2 k/uL (0-1.0); Monocytes % (A) 3 %; Neutrophils # (A) 6.9 k/uL (1.3-7.7); Neutrophils % (A) 92 %; Platelet Count 168 k/uL (150-450); RBC 2.45 m/uL (4.30-5.90); RDW 15.9 % (11.5-15.5); WBC 7.5 k/uL (3.8-10.6)
[2022-01-19 10:27] LABS: C Reactive Protein 14.8 mg/dL (<1.0)
--- NOTE | 2022-01-19 11:17 | P.PN ---
Subjective This is a pleasant 72 years old male with multiple medical problems presents with signs and symptoms of strangulated parastomal abdominal hernia status post surgical repair with small bowel resection and ileostomy on 01/06. With evidence of intra-abdominal infection, possible aspiration pneumonia and UTI, with pseudomonas bacteremia and propionibacterum bacteremia covered with meropenem and IV daptomycin with infectious disease team on the case. His hospital course is complicated with A. fib and RVR, currently rate controlled with amiodarone 400 mg and Cardizem 60 mg twice a day as well as he is on Eliquis 5 mg. His hypernatremia is been treated with D5W at 75 mL/h. Also he is on IV Lasix for evidence of CHF on chest x-ray. Adrenal deficiency is suspected and he is currently on Karina U Cortef 50 mg twice a day. Also medodrine is added for borderline blood pressure. Glucose is controlled. Patient looks very weak and tired and low volume sound but looks appropriate, at bedside and states he tolerates bowel well and STEMI back is working Chest x-ray showing bilateral infiltrates suspicious for CHF versus pneumonia. Hemoglobin 7.3, creatinine improved to 3.1 down to 1.9. Sodium 149. He is tachycardic at and at 110, blood pressure 92/46 and his fever subsided 01/19/2022 Patient token in very low tone, he can hardly talk but he follows commands, he can hardly move his extremities, he can hardly lift his arms or legs off the bed. Right side slightly better than left side but not much difference. He is eating with ileostomy bag showing lose light brown stool. No much respiratory symptoms, slightly tachypneic while he is sitting in bed. Could not specify about urinary symptoms. His hemoglobin 7.4 which is a stable, creatinine slightly less 1.8. Sodium is elevated at 150. Glucose was 72 and this morning which is low. Distal slightly tachycardic 112 with a blood pressure is 97/53. Zazueta catheter is in place. And he has D5W running at 75 which is increased today to 100 mL per hour because of high sodium and low glucose. Also we lowered his Levemir Dr. 18 units. Patient kept on Eliquis, daptomycin, meropenem, IV Lasix. 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 We going to increase his Solu-Cortef dose to 3 times a day to help with his blood pressure Objective - Vital Signs Vital signs: Vital Signs Temp 97.8 F 01/19/22 07:50 Pulse 103 H 01/19/22 07:50 Resp 21 01/19/22 07:50 BP 97/53 01/19/22 07:50 Pulse Ox 99 01/19/22 07:50 Intake & Output 01/18/22 01/19/22 01/19/22 18:59 06:59 18:59 Intake Total 0 Output Total 2600 Balance -2600 0 Intake: Oral 0 Output: Urine 2500 Suprapubic 900 Stool 100 Other: Voiding Method Indwelling Catheter Ileal Conduit (Right) ABP, PAP, CO, CI - Last Documented Arterial Blood Pressure 108/42 - Exam - GENERAL: The patient is confused with low tone x3, not in any acute distress. He is very weak which is generalized HEENT: Pupils are round and equally reacting to light. EOMI. No scleral icterus. No conjunctival pallor. Normocephalic, atraumatic. No pharyngeal erythema. No thyromegaly. CARDIOVASCULAR: S1 and S2 present. No murmurs, rubs, or gallops. -PULMONARY: Chest is clear to auscultation, mild Bilaterall basal crepitations - ABDOMEN: Soft, nontender, nondistended, normoactive bowel sounds. No palpable organomegaly. Ileostomy back in place MUSCULOSKELETAL: No joint swelling or deformity. EXTREMITIES: No cyanosis, clubbing, or pedal edema. -NEUROLOGICAL: Patient was confused with generalized weakness which limits his examination however cranial nerves are grossly intact. Rest of exam is limited but no meningeal signs SKIN: No rashes. no petechiae. - Labs CBC & Chem 7: 01/19/22 08:47 01/19/22 08:47 Labs: Abnormal Lab Results - Last 24 Hours (Table) 01/18/22 01/18/22 01/18/22 Range/Units 10:03 16:18 18:09 RBC (4.30-5.90) m/uL Hgb (13.0-17.5) gm/dL Hct (39.0-53.0) % MCV (80.0-100.0) fL MCHC (31.0-37.0) g/dL RDW (11.5-15.5) % Lymphocytes # (1.0-4.8) k/uL Sodium 152 H 149 H (137-145) mmol/L Potassium 3.2 L (3.5-5.1) mmol/L Chloride 118 H 117 H (98-107) mmol/L BUN 101 H* 95 H (9-20) mg/dL Creatinine 1.89 H 1.93 H (0.66-1.25) mg/dL Glucose 134 H (74-99) mg/dL POC Glucose (mg/dL) 153 H (75-99) mg/dL Calcium 8.2 L 7.9 L (8.4-10.2) mg/dL C-Reactive Protein (<1.0) mg/dL 01/18/22 01/18/22 01/19/22 Range/Units 19:53 23:59 06:02 RBC (4.30-5.90) m/uL Hgb (13.0-17.5) gm/dL Hct (39.0-53.0) % MCV (80.0-100.0) fL MCHC (31.0-37.0) g/dL RDW (11.5-15.5) % Lymphocytes # (1.0-4.8) k/uL Sodium (137-145) mmol/L Potassium (3.5-5.1) mmol/L Chloride (98-107) mmol/L BUN (9-20) mg/dL Creatinine (0.66-1.25) mg/dL Glucose (74-99) mg/dL POC Glucose (mg/dL) 153 H 130 H 72 L (75-99) mg/dL Calcium (8.4-10.2) mg/dL C-Reactive Protein (<1.0) mg/dL 01/19/22 01/19/22 Range/Units 08:47 08:47 RBC 2.45 L (4.30-5.90) m/uL Hgb 7.4 L (13.0-17.5) gm/dL Hct 25.2 L (39.0-53.0) % MCV 103.0 H (80.0-100.0) fL MCHC 29.2 L (31.0-37.0) g/dL RDW 15.9 H (11.5-15.5) % Lymphocytes # 0.3 L (1.0-4.8) k/uL Sodium 150 H (137-145) mmol/L Potassium 3.4 L (3.5-5.1) mmol/L Chloride 119 H (98-107) mmol/L BUN 88 H (9-20) mg/dL Creatinine 1.81 H (0.66-1.25) mg/dL Glucose (74-99) mg/dL POC Glucose (mg/dL) (75-99) mg/dL Calcium 8.2 L (8.4-10.2) mg/dL C-Reactive Protein 14.8 H (<1.0) mg/dL Microbiology - Last 24 Hours (Table) 01/18/22 14:15 Gram Stain - Preliminary Abdomen Wound Culture - Preliminary Assessment and Plan Assessment: Strangulated parastomal hernia status post surgical resection of the small bowel and hernia repair with ileostomy on 01/06 Pseudomonas,repeat culture reported Proprionibacterium species bacteremia, secondary to intra-abdominal infection Hypotension, secondary to sepsis, currently on midodrine and hydrocortisone Generalized weakness Metabolic encephalopathy Acute renal failure, improving hypernatremia anemia Atrial fibrillation with RVR, new on Eliquis and amiodarone and Cardizem Thrombocytopenia Adrenal insufficiency Diabetes mellitus type 2 History of bladder cancer with previous urostomy Plan: This is a pleasant 72 years old male status post hernia repair, bacteremia, hypernatremia, kidney injury and A. fib. Continue with antibiotic, currently on meropenem on daptomycin Continue with the Eliquis, amiodarone and Cardizem Continue with D5W and monitor sodium level. 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 Increased dose to every 8 hours He is on midodrine Consulting us on the case including pulmonary, infectious disease, cardiology as well as nephrology. Also surgery primary team Labs and medication were reviewed.. Continue same treatment. Continue with symptomatic treatment. Resume home medication. Monitor lytes and vitals. DVT and GI prophylaxis. Further recommendations as per clinical course of the patient DVT prophylaxis: Eliquis GI Prophylaxis: Ppi Prognosis is guarded
--- NOTE | 2022-01-19 11:37 | P.PN ---
Subjective Progress Note Date: 01/19/22 HISTORY OF PRESENT ILLNESS This is a 72-year-old gentleman with history of coronary artery disease with pr evious PCI, diabetes mellitus, hypertension and hyperlipidemia and also history of bladder cancer with urostomy. Patient is status post surgery for perforated viscus. Patient is also intubated. His echocardiogram showed an ejection fraction about 35-40% with global hypokinesia without any significant valvular abnormalities. Patient had an episode of A. fib but converted back to sinus rhythm. In the rhythm appears to be mostly is a sinus rhythm with APCs are multifocal atrial rhythm at this time. 01/14/2022: This patient is status post surgery for possible perforated viscus. Patient also has sepsis. We're following patient because of intermittent atrial fibrillation. Patient is currently on IV Cardizem 5 mg daily is maintaining sinus rhythm. His her multiple medications including antibiotics. Still on mechanical ventilator. His echo Cardigan showed ejection fraction 35-40%. W e'll continue current management. We'll follow. 01/15/2022: This patient with history of coronary artery disease, diabetes, hypertension and hypercholesterolemia who was admitted to the abdominal pain and was noted. Strength ablation of the small bowel in the parastomal hernia. Patient underwent surgical procedure including small bowel resection and ileostomy. Patient is also being treated for sepsis and bacteremia and also hypertension. patient had episodes of atrial fibrillation and was treated with amiodarone. Patient is on IV Cardizem and maintaining sinus rhythm. Patient had thrombocytopenia and also anemia. Platelet count is improving and seemed to be around 1 20,000. However, his hemoglobin dropped to 7.8. Patient needs to go on and decortication therapy because of his coronary artery disease and impaired LV function. He was okay with the surgical team, patient to be co nstricted for Eliquis 5 mg by mouth twice a day. However, his platelet counts and hemoglobin 8 followed closely. 01/16/2022: This patient is extubated today. Is awake but seemed to be weak and frail. Patient is afebrile. So far his maintaining sinus rhythm. He is on anticoagulation therapy is also on IV Cardizem. We'll switch to by mouth Cardizem. He is also on amiodarone 400 mg by mouth twice a day. We will taper the amiodarone to 200 mg by mouth twice a day from tomorrow. Chest x-ray shows bilateral infiltrates. Apparently blood cultures have been negative. His hemoglobin dropped to 6.8. Surgical team is following. Plan is to repeat hemoglobin in the afternoon. If hemoglobin evidence for the, may have to discontinue anticoagulation. Further examination depend upon clinical course. 01/17/2022: Patient remained extubated. He seemed to be more alert, maintaining oxygen saturation. Chest x-ray shows stable findings. Patient seemed to maintaining sinus rhythm. He is on by mouth Cardizem and amiodarone. I will cut back the dose of amiodarone and tomorrow to 200 mg by mouth twice a day. Potassium is low which is being corrected. He is also on anti-cognition thera py. Hemoglobin is maintaining about 6.8-7 g range. Rest of the management as for intensivists 01/18: Patient has been transferred out of the intensive care unit and seen today on the cardiac stepdown unit. Patient has transition from atrial fibrillation to sinus rhythm. He has been started on anticoagulation with eliquis. He is currently on amiodarone 400 mg twice daily and will maintain this dose for another 24 hours 01/19: threat monitoring analyst is atrial fibrillation in the low 100s, blood pressure 97/53. Patient is currently on amiodarone, Cardizem, IV Lasix managed by nephrology. Pulmonary started patient on midodrine yesterday. No adjustment in medications will be made by us today to marginal blood pressure. PHYSICAL EXAMINATION GENERAL EXAM: Patient is resting in bed and appears to be comfortable. No acute respiratory distress noted. HEENT: Normocephalic. Normal reaction of pupils, equal size, normal range of extraocular motion. No erythema or exudates in the throat. NECK: No masses, no nuchal rigidity. CHEST: No chest wall deformity. LUNGS: Diminished air exchange HEART: S1 and S2 normal . Distant heart sounds ABDOMEN: No hepatosplenomegaly, normal bowel sounds, no guarding or rigidity. SKIN: No rashes CENTRAL NERVOUS SYSTEM: Deferred EXTREMITIES: No cyanosis, clubbing or edema. ASSESSMENT Atrial fibrillation with RVR, paroxysmal atrial fibrillation Bowel perforation Acute kidney injury Chronic kidney disease Hypernatremia Septic shock secondary to Pseudomonas PLAN Continue patient on amiodarone 400 mg twice daily and eliquis 5 mg twice daily, aspirin 81 mg daily, Cardizem 60 mg twice daily Lasix 40 mg IV every 12 hours per nephrology Further recommendations to follow based upon clinical course Thank you kindly for this consultation. Nurse practitioner note has been reviewed, I agree with documented findings and plan of care. Patient was seen and examined. Objective - Vital Signs Vital signs: Vital Signs Temp 97.8 F 01/19/22 07:50 Pulse 103 H 01/19/22 07:50 Resp 21 01/19/22 07:50 BP 97/53 01/19/22 07:50 Pulse Ox 99 01/19/22 07:50 Intake & Output 01/18/22 01/19/22 01/19/22 18:59 06:59 18:59 Intake Total 0 Output Total 2600 Balance -2600 0 Intake: Oral 0 Output: Urine 2500 Suprapubic 900 Stool 100 Other: Voiding Method Indwelling Catheter Ileal Conduit (Right) ABP, PAP, CO, CI - Last Documented Arterial Blood Pressure 108/42 - Labs CBC & Chem 7: 01/19/22 08:47 01/19/22 08:47 Labs: Abnormal Lab Results - Last 24 Hours (Table) 01/18/22 01/18/22 01/18/22 Range/Units 10:03 10:03 16:18 RBC 2.29 L (4.30-5.90) m/uL Hgb 7.3 L (13.0-17.5) gm/dL Hct 23.0 L (39.0-53.0) % MCV 100.4 H (80.0-100.0) fL Plt Count 146 L (150-450) k/uL Lymphocytes # 0.2 L (1.0-4.8) k/uL Sodium 152 H 149 H (137-145) mmol/L Potassium 3.2 L (3.5-5.1) mmol/L Chloride 118 H 117 H (98-107) mmol/L BUN 101 H* 95 H (9-20) mg/dL Creatinine 1.89 H 1.93 H (0.66-1.25) mg/dL Glucose 134 H (74-99) mg/dL POC Glucose (mg/dL) (75-99) mg/dL Calcium 8.2 L 7.9 L (8.4-10.2) mg/dL 01/18/22 01/18/22 01/18/22 Range/Units 18:09 19:53 23:59 RBC (4.30-5.90) m/uL Hgb (13.0-17.5) gm/dL Hct (39.0-53.0) % MCV (80.0-100.0) fL Plt Count (150-450) k/uL Lymphocytes # (1.0-4.8) k/uL Sodium (137-145) mmol/L Potassium (3.5-5.1) mmol/L Chloride (98-107) mmol/L BUN (9-20) mg/dL Creatinine (0.66-1.25) mg/dL Glucose (74-99) mg/dL POC Glucose (mg/dL) 153 H 153 H 130 H (75-99) mg/dL Calcium (8.4-10.2) mg/dL 01/19/22 Range/Units 06:02 RBC (4.30-5.90) m/uL Hgb (13.0-17.5) gm/dL Hct (39.0-53.0) % MCV (80.0-100.0) fL Plt Count (150-450) k/uL Lymphocytes # (1.0-4.8) k/uL Sodium (137-145) mmol/L Potassium (3.5-5.1) mmol/L Chloride (98-107) mmol/L BUN (9-20) mg/dL Creatinine (0.66-1.25) mg/dL Glucose (74-99) mg/dL POC Glucose (mg/dL) 72 L (75-99) mg/dL Calcium (8.4-10.2) mg/dL Microbiology - Last 24 Hours (Table) 01/18/22 14:15 Gram Stain - Preliminary Abdomen Wound Culture - Preliminary
[2022-01-19 12:24] LABS: Glucose,Whole Blood 155 mg/dL (75-99)
[2022-01-19] MEDS ORDERED: POTASSIUM CHLORIDE ER 20 MEQ TAB.ER PO SCH (14:00)
[2022-01-19] MEDS: FLUCONAZOLE IN NACL,ISO-OSM 100 MG in SALINE 1 50ML.BAG IVPB SCH (15:35)
[2022-01-19] MEDS: AMIODARONE 200 MG TAB PO SCH (15:42)
[2022-01-19] MEDS: APIXABAN 5 MG TAB PO SCH (15:43)
[2022-01-19] MEDS: DILTIAZEM ORAL 60 MG TAB PO SCH (15:43)
[2022-01-19] MEDS: ASPIRIN 81 MG PO SCH (15:43)
[2022-01-19] MEDS ORDERED: Potassium Replacement Protocol 1 EACH MISC MISCELLANE PRN (15:45)
--- NOTE | 2022-01-19 15:55 | P.PN ---
Subjective Progress Note Date: 01/19/22 Principal diagnosis: Respiratory failure. Reevaluated today on 01/10/2022, patient remains in the ICU, intubated and mechanically ventilated sedated, but not paralyzed. Patient is on assist control mode of mechanical ventilation rate of 20, volume 500 FiO2 40% and PEEP of 8. ABG showed a pO2 of 106 pCO2 45 pH of 7.45. Patient is still requiring hemodynamic support, he is on vasopressin at 0.03 units per minute, norepinephrine at 0.24 mcg/kg/m. Total of 22 mcg/m. He is on fentanyl at 2 mcg/kg/m. And on propofol at 35 mcg/kg/m. Chest x-ray continues to show bilateral interstitial edema and/or infiltrates. Patient received significant amount of fluids on his initial presentation when he was septic and hypotensive, later on he was placed on pressors in the form of vasopressin and norepinephrine. CVP today is 8, hence no need for more fluids and no need for aggressive diuresis. Patient remains on bicarb drip at 50 mL per hour, and I will go ahead and discontinue bicarbonate based on his electrolytes and based on his ABG. His bicarb is 31. Renal profile today is improving, it was as high as 3.8, creatinine now is 2.72. WBC count is 4.5 hemoglobin is 8.6. Patient remains on Zosyn for his Pseudomonas bacteremia and I believe the most likely source of his Pseudomonas is his GI tract patient remains on GI and DVT prophylaxis. Platelets are 98,000, not unexpected considering the patient is septic and has septic shock on presentation Reevaluated today on 01/11/2022, patient remains in the ICU, intubated and mechanically ventilated. He is on assist control rate of 2012 volume 500 FiO2 40% and PEEP of 8. Today I cut down the PEEP down to 6. ABG showed a pO2 of 135 pCO2 41 pH of 7.46. WBC count is 5.4 hemoglobin 8.5. Electrolytes are normal, renal profile is improving with a BUN 63 creatinine is down to 2.53. Creatinine was as high as 3.80 few days ago. Chest x-ray continues to show bilateral interstitial infiltrates/interstitial edema but nonetheless it is improving. Patient remains empirically on antibiotics for his Pseudomonas bacteremia and sepsis as well as septic shock. His platelets are noted to go down further today, hence I'm holding the heparin, patient will have Venodyne boots, and we will order a heparin-induced thrombocytopenia profile. Noted today that the patient was changed to Merrem instead of Zosyn. Mostly because the sensitivity on the pseudomonas seems to be intermediate to Zosyn. However it is sensitive to Merrem. Patient is still requiring norepinephrine he is on 0.21 mcg/kg/minute, and he is off vasopressin. I have a feeling that the patient will likely even though much less on norepinephrine if we cut down his sedation especially his fentanyl. And I plan to do so. We'll try to manage the patient's sedation only with propofol if possible. Reevaluated today on 01/12/2022, patient remains in the ICU, intubated and mechanically ventilated. Patient is on assist control rate of 20, volume 500 FiO2 40% and PEEP of 6. ABG showed a pO2 of 97 pCO2 42 pH of 7.45. Chest x-ray continues to show bilateral infiltrates, and possibly some component of interstitial edema. His WBC count is 8.7 hemoglobin is 8.1 and hematocrit is 25.7. Patient remains on propofol at 50 mcg/kg/m, remains on norepinephrine at 0.25, IV fluids at 75 mL per hour. Electrolytes showed low potassium of 3.4, BUN is 66 creatinine is 2.18, steadily improving. Patient is receiving Nepro and he is still on TPN. Platelets are down to 83, patient remains off heparin even subcu heparin. Workup for heparin-induced thrombocytopenia is pending. Patient remains on Merrem for pseudomonas aeruginosa bacteremia sepsis and septic shock. Progress note dated 01/13/2022. 72-year-old male, again seen in room 261. The patient was initially admitted back on 01/06, for abdominal pain, and an incarcerated hernia. The patient went to the operating room on 01/06, for exploratory laparotomy and ileostomy. The patient was extubated successfully, but came to the intensive care unit on 01/07/2022, and was intubated on 01/07/2022. The patient remains on the mechanical ventilator. Blood cultures show evidence of Pseudomonas. Currently, he's on meropenem and fluconazole. He will get some Lasix IV push today, as he is quite edematous. Current ventilator settings include the volume assist control mode, rate 20, tidal volume 500, FiO2 40%, and PEEP of 6. Arterial blood gases show pO2 101, pCO2 42, and pH 7.45. The patient remains on norepinephrine at 25 mcg/m, propofol at 35 mcg/kg/m, TPN at 60 mL an hour, tube feedings with Nepro at 20 mL an hour, and saline at 25 mL an hour. Because of the ongoing use of norepinephrine, I asked the nurses to draw a stat TSH and random cortisol. Current laboratory data includes a sodium 143, potassium 3.6, chlorides 112, CO2 27, anion gap 4, BUN 73, and creatinine 2.09. Blood cultures from January 06 and January 07 both show evidence of pseudomonas aeruginosa. Chest x-ray shows diffuse bilateral infiltrates. Progress note dated 01/18/2022. 72-year-old male seen on the general medical floor, room 374. He was moved out of the intensive care unit yesterday. The patient was initially admitted back on January 06 for abdominal pain, and an incarcerated hernia. The patient went to the operating room on the same day, for exploratory laparotomy and ileostomy. The patient was successfully extubated but came to the intensive care unit on 01/07/2022, and was intubated on the same day. More recently, the patient was again extubated, and was transferred out of the intensive care unit. The patient's currently on 2 L nasal cannula, with adequate saturations. Apparently after leaving the intensive care unit, the patient's wound apparently dehisced, and his blood pressure has been steadily dropping. The patient is not to be reintubated according to family members. White count is 7, hemoglobin 7.3, hematocrit 23, platelet count 146,000. Sodium 152, potassium 3.5, chlorides 118, CO2 26, anion gap 8, BUN 101, and creatinine 1.89. Calcium is 8.2. Progress note dated 01/19/2022. 72-year-old male, again seen in room 374. Patient has been in the hospital for nearly 2 weeks. He was moved out of the intensive care unit 2 days ago. He was initially admitted back on 01/06, for abdominal pain, and was discovered to have an incarcerated hernia. The patient went to the operating room on the same day, for exploratory laparotomy, and ileostomy. The patient was successfully extubated but came to the intensive care unit the following day, and was intub ated. The patient was suddenly extubated a few days later. Currently, the patient is on 2 L nasal cannula. He is getting D5W at 75 mL an hour. Yesterday, his blood pressure was low. Today it is 132/65. Today's laboratory data includes a white count 7.5, hemoglobin 7.4, hematocrit 25.2, and platelet count 168,000. Sodium 150, potassium 3.4, chlorides 119, CO2 24, anion gap 7, BUN 88, and creatinine 1.81. Blood cultures were positive for Pseudomonas on December and . Objective - Vital Signs Vital signs: Vital Signs Temp 97.5 F L 01/19/22 11:15 Pulse 96 01/19/22 11:15 Resp 24 01/19/22 11:15 BP 132/65 01/19/22 11:15 Pulse Ox 95 01/19/22 11:15 Intake & Output 01/18/22 01/19/22 01/19/22 18:59 06:59 18:59 Intake Total 0 Output Total 2600 Balance -2600 0 Intake: Oral 0 Output: Urine 2500 Suprapubic 900 Stool 100 Other: Voiding Method Indwelling Catheter Ileal Conduit (Right) Ileal Conduit (Right) ABP, PAP, CO, CI - Last Documented Arterial Blood Pressure 108/42 - Exam No acute distress, currently on 2 L nasal cannula. No respiratory difficulty or distress. HEENT examination is grossly unremarkable. Neck supple. Full range of motion. No adenopathy thyromegaly or neck vein distention. Cardiovascular examination reveals regular rhythm rate. S1-S2 normal. No S3 or S4. No discernible murmur noted. Heart sounds are distant. Heart rate 96 bpm. Lungs reveal coarse bilateral rhonchi. Breath sounds equal. No wheezes or crackles. Saturations are 95% on 2 L. Abdomen soft, without bowel sounds. A urostomy bag and a ileostomy bag is noted. Extremities are intact. No cyanosis or clubbing. Diffuse anasarca is noted. Skin is without rash or lesion. Neurologic examination is brief but nonfocal. - Labs CBC & Chem 7: 01/19/22 08:47 01/19/22 08:47 Labs: Abnormal Lab Results - Last 24 Hours (Table) 01/18/22 01/18/22 01/18/22 Range/Units 16:18 18:09 19:53 RBC (4.30-5.90) m/uL Hgb (13.0-17.5) gm/dL Hct (39.0-53.0) % MCV (80.0-100.0) fL MCHC (31.0-37.0) g/dL RDW (11.5-15.5) % Lymphocytes # (1.0-4.8) k/uL Sodium 149 H (137-145) mmol/L Potassium 3.2 L (3.5-5.1) mmol/L Chloride 117 H (98-107) mmol/L BUN 95 H (9-20) mg/dL Creatinine 1.93 H (0.66-1.25) mg/dL Glucose 134 H (74-99) mg/dL POC Glucose (mg/dL) 153 H 153 H (75-99) mg/dL Calcium 7.9 L (8.4-10.2) mg/dL C-Reactive Protein (<1.0) mg/dL 01/18/22 01/19/22 01/19/22 Range/Units 23:59 06:02 08:47 RBC (4.30-5.90) m/uL Hgb (13.0-17.5) gm/dL Hct (39.0-53.0) % MCV (80.0-100.0) fL MCHC (31.0-37.0) g/dL RDW (11.5-15.5) % Lymphocytes # (1.0-4.8) k/uL Sodium 150 H (137-145) mmol/L Potassium 3.4 L (3.5-5.1) mmol/L Chloride 119 H (98-107) mmol/L BUN 88 H (9-20) mg/dL Creatinine 1.81 H (0.66-1.25) mg/dL Glucose (74-99) mg/dL POC Glucose (mg/dL) 130 H 72 L (75-99) mg/dL Calcium 8.2 L (8.4-10.2) mg/dL C-Reactive Protein 14.8 H (<1.0) mg/dL 01/19/22 01/19/22 Range/Units 08:47 12:23 RBC 2.45 L (4.30-5.90) m/uL Hgb 7.4 L (13.0-17.5) gm/dL Hct 25.2 L (39.0-53.0) % MCV 103.0 H (80.0-100.0) fL MCHC 29.2 L (31.0-37.0) g/dL RDW 15.9 H (11.5-15.5) % Lymphocytes # 0.3 L (1.0-4.8) k/uL Sodium (137-145) mmol/L Potassium (3.5-5.1) mmol/L Chloride (98-107) mmol/L BUN (9-20) mg/dL Creatinine (0.66-1.25) mg/dL Glucose (74-99) mg/dL POC Glucose (mg/dL) 155 H (75-99) mg/dL Calcium (8.4-10.2) mg/dL C-Reactive Protein (<1.0) mg/dL Microbiology - Last 24 Hours (Table) 01/18/22 14:15 Gram Stain - Preliminary Abdomen Wound Culture - Preliminary Assessment and Plan Assessment: 1 Acute abdominal pain secondary to parastomal hernia containing small bowel demonstrating pneumobilia suggesting strangulation small bowel with possible perforation. Subcutaneous gas which may represent superimposed infection. No organizing fluid collection of the time to suggest abscess. Status post exploratory laparotomy, repair of strangulated parastomal hernia, small bowel resection with ileostomy, repair of incisional hernia performed on 01/06/2022. 2 Sepsis with bacteremia secondary to pseudomonas aeruginosa. 3 Acute hypoxemic respiratory failure secondary to above requiring prolonged intubation. Extubated on 01/16/2022. 4 Lactic acidosis, resolved. 5 Acute renal failure. 6 Hyperkalemia secondary to above. 7 History of bladder cancer with previous urostomy. 8 Diabetes mellitus. 9 Hyperlipidemia. 10 BPH. 11 Visual disorder. 12 Coronary artery disease with previous stent placement. 13 Chronic tobacco dependence. 14 Anemia. 15 Thrombocytopenia. 16 Hypernatremia. Plan: Plan dated 01/13/2022. The patient will have a stat TSH and cortisol level sent. The patient remains on antibiotic for Pseudomonas bacteremia. Labs, x-rays, and medications are all reviewed. The patient's postop day #7. Patient was intubated for respiratory failure on 01/07/2022. We continue with postoperative ventilator management. We will continue to follow make recommendations where appropriate. Prognosis is very guarded. Plan dated 01/18/2022. The patient was transferred out of the ICU yesterday. He is postop day number 12. According to the family, the patient is not to be reintubated. The patient remains on antibiotics in the form of daptomycin and meropenem. We will contin ue to follow make recommendations where appropriate. Unnecessary medications were discontinued. We added midodrine for blood pressure. Prognosis remains guarded. Saturations are 95% on 2 L nasal cannula. Plan dated 01/19/2022. The patient was transferred out of the ICU 2 days ago. Today's postop day #13. I had a long discussion with the today. Initially, while in the ICU, the patient was apparently a do not reintubate. After talking to the today, I'm not so sure about that. I asked her to clarify that with her said that we know what to do should something catastrophic happen. The patient's respiratory status is stable. Midodrine orally seem to help the blood pressure. The patient remains on daptomycin and meropenem per infectious diseases. The patient also remains on fluconazole. Prognosis is guarded. We will continue to follow and make recommendations where appropriate. Time with Patient: Less than 30
--- NOTE | 2022-01-19 16:29 | P.PN ---
Subjective Progress Note Date: 01/19/22 CHIEF COMPLAINT: Strangulated parastomal hernia HISTORY OF PRESENT ILLNESS: The patient is a 72-year-old male with complicated history of strangulated parastomal hernia, urostomy, ileostomy including sepsis with septic shock. Today, his blood pressure is better. No further severe hypotension. Patient is in bed and weak. ROS: Recent septic shock with hypotension. Atrial fibrillation. History of uro stomy. Congestive heart failure PHYSICAL EXAM: VITAL SIGNS: Reviewed CONSTITUTIONAL: Well developed and in no acute distress. EYES: Conjuctivae without sclera icterus. Extraocular movements grossly intact. HEAD, EARS, NOSE, THROAT: Moist buccal mucosa. Head is atraumatic, normocephalic. Hears conversational speech. No nasal drainage. RESPIRATORY: Labored respirations and equal bilateral excursions. CARDIOVASCULAR: Palpable 2+ radial pulses. ABDOMEN: Urostomy, ileostomy patent. Wound opened in mid and lower abdomen. MUSCULOSKELETAL: No gross deformity of the lower extremities noted. No clubbing. No cyanosis. SKIN: Good skin turgor. Well perfused. NEUROLOGIC: Cranial nerves II through XII grossly intact. No focal or lateralizing signs. PSYCH: Alert to person. CLINICAL LABS: Reviewed. Hemoglobin low with anemia 7.3, now 7.4 ASSESSMENT: 1. Parastomal hernia with strangulation 2. Ileostomy 3. Urostomy 4. Hypotension 5. Anemia PLAN: 1. He has very gaurded prognosis with complicated post-operative course. May benefit from adjustment of code status. 2. Await cultures from abdominal wound. Objective - Vital Signs Vital signs: Vital Signs Temp 97.5 F L 01/19/22 11:15 Pulse 96 01/19/22 11:15 Resp 24 01/19/22 11:15 BP 132/65 01/19/22 11:15 Pulse Ox 95 01/19/22 11:15 Intake & Output 01/18/22 01/19/22 01/19/22 18:59 06:59 18:59 Intake Total 0 Output Total 2600 Balance -2600 0 Intake: Oral 0 Output: Urine 2500 Suprapubic 900 Stool 100 Other: Voiding Method Indwelling Catheter Ileal Conduit (Right) Ileal Conduit (Right) ABP, PAP, CO, CI - Last Documented Arterial Blood Pressure 108/42 - Labs CBC & Chem 7: 01/19/22 08:47 02/20/22 08:47 Labs: Abnormal Lab Results - Last 24 Hours (Table) 01/18/22 01/18/22 01/18/22 Range/Units 16:18 18:09 19:53 RBC (4.30-5.90) m/uL Hgb (13.0-17.5) gm/dL Hct (39.0-53.0) % MCV (80.0-100.0) fL MCHC (31.0-37.0) g/dL RDW (11.5-15.5) % Lymphocytes # (1.0-4.8) k/uL Sodium 149 H (137-145) mmol/L Potassium 3.2 L (3.5-5.1) mmol/L Chloride 117 H (98-107) mmol/L BUN 95 H (9-20) mg/dL Creatinine 1.93 H (0.66-1.25) mg/dL Glucose 134 H (74-99) mg/dL POC Glucose (mg/dL) 153 H 153 H (75-99) mg/dL Calcium 7.9 L (8.4-10.2) mg/dL C-Reactive Protein (<1.0) mg/dL 01/18/22 01/19/22 01/19/22 Range/Units 23:59 06:02 08:47 RBC (4.30-5.90) m/uL Hgb (13.0-17.5) gm/dL Hct (39.0-53.0) % MCV (80.0-100.0) fL MCHC (31.0-37.0) g/dL RDW (11.5-15.5) % Lymphocytes # (1.0-4.8) k/uL Sodium 150 H (137-145) mmol/L Potassium 3.4 L (3.5-5.1) mmol/L Chloride 119 H (98-107) mmol/L BUN 88 H (9-20) mg/dL Creatinine 1.81 H (0.66-1.25) mg/dL Glucose (74-99) mg/dL POC Glucose (mg/dL) 130 H 72 L (75-99) mg/dL Calcium 8.2 L (8.4-10.2) mg/dL C-Reactive Protein 14.8 H (<1.0) mg/dL 01/19/22 01/19/22 Range/Units 08:47 12:23 RBC 2.45 L (4.30-5.90) m/uL Hgb 7.4 L (13.0-17.5) gm/dL Hct 25.2 L (39.0-53.0) % MCV 103.0 H (80.0-100.0) fL MCHC 29.2 L (31.0-37.0) g/dL RDW 15.9 H (11.5-15.5) % Lymphocytes # 0.3 L (1.0-4.8) k/uL Sodium (137-145) mmol/L Potassium (3.5-5.1) mmol/L Chloride (98-107) mmol/L BUN (9-20) mg/dL Creatinine (0.66-1.25) mg/dL Glucose (74-99) mg/dL POC Glucose (mg/dL) 155 H (75-99) mg/dL Calcium (8.4-10.2) mg/dL C-Reactive Protein (<1.0) mg/dL Microbiology - Last 24 Hours (Table) 01/18/22 14:15 Gram Stain - Preliminary Abdomen Wound Culture - Preliminary Assessment and Plan (1) History of bladder cancer Current Visit: Yes Status: Acute Code(s): Z85.51 - PERSONAL HISTORY OF MALIGNANT NEOPLASM OF BLADDER SNOMED Code(s): 087726776 (2) Presence of urostomy Current Visit: Yes Status: Acute Code(s): Z93.6 - OTHER ARTIFICIAL OPENINGS OF URINARY TRACT STATUS SNOMED Code(s): 591854610 (3) Septic shock Current Visit: Yes Status: Acute Code(s): A41.9 - SEPSIS, UNSPECIFIED ORGANISM; R65.21 - SEVERE SEPSIS WITH SEPTIC SHOCK SNOMED Code(s): 95127024 (4) Atrial fibrillation Current Visit: Yes Status: Acute Code(s): I48.91 - UNSPECIFIED ATRIAL FIBRILLATION SNOMED Code(s): 40002676 (5) Bacteremia Current Visit: Yes Status: Acute Code(s): R78.81 - BACTEREMIA SNOMED Code(s): 7313984 (6) Chronic renal failure Current Visit: Yes Status: Acute Code(s): N18.9 - CHRONIC KIDNEY DISEASE, UNSPECIFIED SNOMED Code(s): 62487826 (7) Strangulated hernia of abdominal wall Current Visit: Yes Status: Acute Code(s): K43.6 - OTHER AND UNSP VENTRAL HERNIA WITH OBSTRUCTION, W/O GANGRENE SNOMED Code(s): 51649966
[2022-01-19 17:10] LABS: Glucose,Whole Blood 230 mg/dL (75-99)
[2022-01-19] MEDS: DEXTROSE 5% IN WATER 1,000 ML IV SCH (20:23)
[2022-01-19] MEDS ORDERED: INSULIN DETEMIR (LEVEMIR) 100 UNIT/ML SYR SQ SCH (21:00)
--- NOTE | 2022-01-19 22:52 | P.PN ---
Subjective Progress Note Date: 01/18/22 Principal diagnosis: Pseudomonas bacteremia Patient is 72-year-old male, presented to hospital with abdominal pain has been diagnosed with strangulated parastomal hernia, in this patient was status post exploratory laparotomy, small bowel resection with ileostomy and re pair of incisional hernia patient was noticed to have a positive blood culture has been finalized with pseudomonas aeruginosa, patient was transferred to the ICU because of hypotension. On today's evaluation that is 01/18/2022, the patient is afebrile, patient remains to be lethargic and unable to provide any history, the patient is breathing comfortably on nasal cannula oxygen, the patient is hemodynamically stable not requiring any pressor support, did have output in his ileostomy, patient was noticed to have dehiscence of abdominal wound Objective - Vital Signs Vital signs: Vital Signs Temp 97.6 F 01/18/22 08:00 Pulse 119 H 01/18/22 12:43 Resp 21 01/18/22 10:45 BP 95/53 01/18/22 13:12 Pulse Ox 95 01/18/22 10:45 Intake & Output 01/17/22 01/18/22 01/18/22 18:59 06:59 18:59 Intake Total 2300 469 Output Total 2295 475 1700 Balance 5 -6 -1700 Weight 96.3 kg Intake: IV 1400 469 .9 NS 110 40 Dextrose 5% in Water 1, 1070 400 000 ml @ 70 mls/hr IV . [id number] [facility] Rx#:[id number] Pressure bag 220 29 Oral 900 Output: Urine 2393 134 5302 Stool 450 100 Other: Voiding Method Indwelling Catheter Indwelling Catheter Indwelling Catheter ABP, PAP, CO, CI - Last Documented Arterial Blood Pressure 108/42 - Exam GENERAL DESCRIPTION: An elderly male lying in bed in no distress RESPIRATORY SYSTEM: Unlabored breathing , decreased breath sounds at bases HEART: S1 S2 regular rate and rhythm , ABDOMEN: Soft , no tenderness, midline abdominal wound dehiscence with no significant surrounding redness or induration EXTREMITIES: No edema feet - Labs CBC & Chem 7: 01/19/22 08:47 01/19/22 08:47 Labs: Abnormal Lab Results - Last 24 Hours (Table) 01/17/22 01/17/22 01/18/22 Range/Units 15:58 16:39 00:21 RBC (4.30-5.90) m/uL Hgb (13.0-17.5) gm/dL Hct (39.0-53.0) % MCV (80.0-100.0) fL Plt Count (150-450) k/uL Lymphocytes # (1.0-4.8) k/uL Sodium 148 H (137-145) mmol/L Chloride (98-107) mmol/L BUN (9-20) mg/dL Creatinine (0.66-1.25) mg/dL POC Glucose (mg/dL) 214 H 258 H (75-99) mg/dL Calcium (8.4-10.2) mg/dL 01/18/22 01/18/22 01/18/22 Range/Units 06:00 10:03 10:03 RBC 2.29 L (4.30-5.90) m/uL Hgb 7.3 L (13.0-17.5) gm/dL Hct 23.0 L (39.0-53.0) % MCV 100.4 H (80.0-100.0) fL Plt Count 146 L (150-450) k/uL Lymphocytes # 0.2 L (1.0-4.8) k/uL Sodium 152 H (137-145) mmol/L Chloride 118 H (98-107) mmol/L BUN 101 H* (9-20) mg/dL Creatinine 1.89 H (0.66-1.25) mg/dL POC Glucose (mg/dL) 151 H (75-99) mg/dL Calcium 8.2 L (8.4-10.2) mg/dL Microbiology - Last 24 Hours (Table) 01/11/22 16:39 Blood Culture - Final Blood No Growth after 144 hours Assessment and Plan (1) Bacteremia Current Visit: Yes Status: Acute Code(s): R78.81 - BACTEREMIA SNOMED Code(s): 2933749 Plan: 1-Patient with pseudomonas bacteremia source is likely abdominal and this patient presented to the hospital with incarcerated hernia status post small bowel resection and ileostomy and repair of the hernia patient did have worsening of his respiratory status requiring intubation, patient pseudomonas with intermediate sensitivity to Zosyn and cefepime,repeat blood culture did grew Propionibacterium for the patient is currently covered with the meropenem , patient now with abdominal wound/incision dehiscence local culture has been obtained daptomycin has been admitted while waiting for the culture finalized will benefit from CT of abdominal pelvis, family at the bedside questions were answered Time with Patient: Less than 30
--- NOTE | 2022-01-19 22:54 | P.PN ---
Subjective Progress Note Date: 01/19/22 Principal diagnosis: Pseudomonas bacteremia Patient is 72-year-old male, presented to hospital with abdominal pain has been diagnosed with strangulated parastomal hernia, in this patient was status post exploratory laparotomy, small bowel resection with ileostomy and re pair of incisional hernia patient was noticed to have a positive blood culture has been finalized with pseudomonas aeruginosa, patient was transferred to the ICU because of hypotension. On today's evaluation that is 01/19/2022, the patient continues to be afebrile, patient remains to be lethargic, the patient is breathing comfortably on nasal cannula oxygen, the patient mildly hypertensive but not on any pressor support, did have output in his ileostomy, Objective - Vital Signs Vital signs: Vital Signs Temp 97.5 F L 01/19/22 11:15 Pulse 96 01/19/22 11:15 Resp 24 01/19/22 11:15 BP 132/65 01/19/22 11:15 Pulse Ox 95 01/19/22 11:15 Intake & Output 01/18/22 01/19/22 01/19/22 18:59 06:59 18:59 Intake Total 0 Output Total 2600 Balance -2600 0 Intake: Oral 0 Output: Urine 2500 Suprapubic 900 Stool 100 Other: Voiding Method Indwelling Catheter Ileal Conduit (Right) Ileal Conduit (Right) ABP, PAP, CO, CI - Last Documented Arterial Blood Pressure 108/42 - Exam GENERAL DESCRIPTION: An elderly male lying in bed in no distress RESPIRATORY SYSTEM: Unlabored breathing , decreased breath sounds at bases HEART: S1 S2 regular rate and rhythm , ABDOMEN: Soft , no tenderness, midline abdominal wound is currently covered EXTREMITIES: No edema feet - Labs CBC & Chem 7: 01/19/22 08:47 01/19/22 08:47 Labs: Abnormal Lab Results - Last 24 Hours (Table) 01/18/22 01/18/22 01/18/22 Range/Units 16:18 18:09 19:53 RBC (4.30-5.90) m/uL Hgb (13.0-17.5) gm/dL Hct (39.0-53.0) % MCV (80.0-100.0) fL MCHC (31.0-37.0) g/dL RDW (11.5-15.5) % Lymphocytes # (1.0-4.8) k/uL Sodium 149 H (137-145) mmol/L Potassium 3.2 L (3.5-5.1) mmol/L Chloride 117 H (98-107) mmol/L BUN 95 H (9-20) mg/dL Creatinine 1.93 H (0.66-1.25) mg/dL Glucose 134 H (74-99) mg/dL POC Glucose (mg/dL) 153 H 153 H (75-99) mg/dL Calcium 7.9 L (8.4-10.2) mg/dL C-Reactive Protein (<1.0) mg/dL 01/18/22 01/19/22 01/19/22 Range/Units 23:59 06:02 08:47 RBC (4.30-5.90) m/uL Hgb (13.0-17.5) gm/dL Hct (39.0-53.0) % MCV (80.0-100.0) fL MCHC (31.0-37.0) g/dL RDW (11.5-15.5) % Lymphocytes # (1.0-4.8) k/uL Sodium 150 H (137-145) mmol/L Potassium 3.4 L (3.5-5.1) mmol/L Chloride 119 H (98-107) mmol/L BUN 88 H (9-20) mg/dL Creatinine 1.81 H (0.66-1.25) mg/dL Glucose (74-99) mg/dL POC Glucose (mg/dL) 130 H 72 L (75-99) mg/dL Calcium 8.2 L (8.4-10.2) mg/dL C-Reactive Protein 14.8 H (<1.0) mg/dL 01/19/22 01/19/22 Range/Units 08:47 12:23 RBC 2.45 L (4.30-5.90) m/uL Hgb 7.4 L (13.0-17.5) gm/dL Hct 25.2 L (39.0-53.0) % MCV 103.0 H (80.0-100.0) fL MCHC 29.2 L (31.0-37.0) g/dL RDW 15.9 H (11.5-15.5) % Lymphocytes # 0.3 L (1.0-4.8) k/uL Sodium (137-145) mmol/L Potassium (3.5-5.1) mmol/L Chloride (98-107) mmol/L BUN (9-20) mg/dL Creatinine (0.66-1.25) mg/dL Glucose (74-99) mg/dL POC Glucose (mg/dL) 155 H (75-99) mg/dL Calcium (8.4-10.2) mg/dL C-Reactive Protein (<1.0) mg/dL Microbiology - Last 24 Hours (Table) 01/18/22 14:15 Gram Stain - Preliminary Abdomen Wound Culture - Preliminary Assessment and Plan (1) Bacteremia Current Visit: Yes Status: Acute Code(s): R78.81 - BACTEREMIA SNOMED Code (s): 7892321 Plan: 1-Patient with pseudomonas bacteremia source is likely abdominal and this patient presented to the hospital with incarcerated hernia status post small bowel resection and ileostomy and repair of the hernia patient did have worsening of his respiratory status requiring intubation, patient pseudomonas with intermediate sensitivity to Zosyn and cefepime,repeat blood culture did grew Propionibacterium for the patient is currently covered with the meropenem , patient now with abdominal wound/incision dehiscence local culture has been obta ined which are currently pending, patient will continue with daptomycin while waiting for the cultures are finalized, the patient will benefit from CT of abdominal pelvis, overall prognosis remains to be guarded Time with Patient: Less than 30
[2022-01-20 00:05] LABS: Glucose,Whole Blood 282 mg/dL (75-99)
[2022-01-20] MEDS: AMIODARONE 200 MG TAB PO SCH ×3 (00:30→20:59)
[2022-01-20] MEDS: APIXABAN 5 MG TAB PO SCH ×2 (00:30→09:09)
[2022-01-20] MEDS: DILTIAZEM ORAL 60 MG TAB PO SCH ×2 (00:31→09:09)
[2022-01-20] MEDS: POTASSIUM CHLORIDE 20 MEQ in WATER FOR INJECTION 1 100ML.BAG IVPB SCH (00:33)
[2022-01-20] MEDS: INSULIN ASPART (NovoLOG) 100 UNIT/ML VIAL SQ SCH ×4 (00:38→17:41)
[2022-01-20] MEDS: MEROPENEM 1 GM in SODIUM CHLORIDE 0.9% 100 ML IVPB SCH ×4 (00:39→23:57)
[2022-01-20] MEDS: 1: PARENTERAL ELECTROLYTES 20 ML, MVI, ADULT NO.4 WITH VIT K 10 ML, TRACE (CONC-1ML/DOSE IV SCH ×5 (02:15)
[2022-01-20] MEDS: HEPARIN SODIUM,PORCINE/PF 5,000 UNIT/0.5 ML SYRINGE SQ SCH (02:16)
[2022-01-20 06:14] LABS: Glucose,Whole Blood 292 mg/dL (75-99)
[2022-01-20] MEDS: MIDODRINE 5 MG TAB PO SCH ×3 (06:37→17:39)
[2022-01-20] MEDS: DEXTROSE 5% IN WATER 1,000 ML IV SCH ×2 (06:58→15:32)
[2022-01-20] MEDS: HYDROCORTISONE SUCCINATE 100 MG/2 ML VIAL IV SCH ×3 (07:02→20:57)
[2022-01-20] MEDS: INSULIN DETEMIR (LEVEMIR) 100 UNIT/ML SYR SQ SCH ×2 (07:02→20:57)
[2022-01-20 08:10] LABS: Anisocytosis Slight; Basophils % (A) 0 %; Eosinophils % (A) 0 %; HCT 26.2 % (39.0-53.0); HGB 7.5 gm/dL (13.0-17.5); Hypochromasia Marked; Lymphocytes # (A) 0.3 k/uL (1.0-4.8); Lymphocytes % (A) 7 %; MCH 29.8 pg (25.0-35.0); MCHC 28.6 g/dL (31.0-37.0); MCV 104.1 fL (80.0-100.0); Macrocytosis Moderate; Monocytes # (A) 0.1 k/uL (0-1.0); Monocytes % (A) 3 %; Neutrophils # (A) 4.1 k/uL (1.3-7.7); Neutrophils % (A) 89 %; Platelet Count 181 k/uL (150-450); RBC 2.52 m/uL (4.30-5.90); WBC 4.6 k/uL (3.8-10.6)
[2022-01-20 08:26] LABS: Calcium 8.2 mg/dL (8.4-10.2); Magnesium 1.6 mg/dL (1.6-2.3); Potassium 3.7 mmol/L (3.5-5.1)
[2022-01-20] MEDS: PANTOPRAZOLE 40 MG/10 ML VIAL IVP SCH (09:01)
[2022-01-20] MEDS: FUROSEMIDE 10 MG/ML 4 ML VIAL IV SCH (09:01)
[2022-01-20] MEDS: ASPIRIN 81 MG PO SCH (09:09)
[2022-01-20] MEDS ORDERED: HEPARIN SODIUM 1,000 UN/ML (10ML VL) IV PRN (09:54)
--- NOTE | 2022-01-20 10:20 | P.PN ---
Subjective Principal diagnosis: Patient is a 72-year-old male with history of bladder cancer status post cystectomy and ileal loop urostomy, he was admitted to the hospital with abdominal pain and found to have a parastomal hernia with incarceration and bowel necrosis. Patient was taken to surgery on 01/06/2022 and had explorative laparotomy with repair of strangulated parastomal hernia and small bowel resection with ileostomy and repair of incisional hernia. Patient is seen for follow-up for acute kidney injury, mostly ATN secondary to hypotension and sepsis as well as an obstructive component. Renal function has been improving. Patient has had good output from his urostomy. Patient has been transferred out of the ICU. He remains quite weak though. Patient is also maintained on D5W for severe hyponatremia. He has not been ea ting much. Objective - Vital Signs Vital signs: Vital Signs Temp 97.3 F L 01/20/22 09:00 Pulse 90 01/20/22 09:00 Resp 18 01/20/22 09:00 BP 105/66 01/20/22 09:00 Pulse Ox 92 L 01/20/22 09:00 Intake & Output 01/19/22 01/20/22 01/20/22 18:59 06:59 18:59 Intake Total 0 0 Output Total 1000 2675 Balance -1000 -2675 Intake: Oral 0 0 Output: Urine 1000 2550 Suprapubic 1000 Stool 125 Other: Voiding Method Ileal Conduit (Right) Ileal Conduit (Right) Ileal Conduit (Right) ABP, PAP, CO, CI - Last Documented Arterial Blood Pressure 108/42 - Exam Patient is awake. He is comfortable. His profoundly weak. He does respond to simple questions. Examination of the heart S1 and S2 Examination lungs bilateral breath sounds are heard Abdomen is soft nontender. Urostomy and ileostomy is intact. Examination of lower extremities shows no significant edema. [employer] exam shows significant weakness - Labs CBC & Chem 7: 01/20/22 07:42 01/20/22 07:42 Labs: Abnormal Lab Results - Last 24 Hours (Table) 01/19/22 01/19/22 01/19/22 Range/Units 08:47 12:23 17:06 RBC (4.30-5.90) m/uL Hgb (13.0-17.5) gm/dL Hct (39.0-53.0) % MCV (80.0-100.0) fL MCHC (31.0-37.0) g/dL RDW (11.5-15.5) % Lymphocytes # (1.0-4.8) k/uL Sodium 150 H (137-145) mmol/L Potassium 3.4 L (3.5-5.1) mmol/L Chloride 119 H (98-107) mmol/L BUN 88 H (9-20) mg/dL Creatinine 1.81 H (0.66-1.25) mg/dL Glucose (74-99) mg/dL POC Glucose (mg/dL) 155 H 230 H (75-99) mg/dL Calcium 8.2 L (8.4-10.2) mg/dL C-Reactive Protein 14.8 H (<1.0) mg/dL 01/20/22 01/20/22 01/20/22 Range/Units 00:04 06:12 07:42 RBC 2.52 L (4.30-5.90) m/uL Hgb 7.5 L (13.0-17.5) gm/dL Hct 26.2 L (39.0-53.0) % MCV 104.1 H (80.0-100.0) fL MCHC 28.6 L (31.0-37.0) g/dL RDW 16.0 H (11.5-15.5) % Lymphocytes # 0.3 L (1.0-4.8) k/uL Sodium (137-145) mmol/L Potassium (3.5-5.1) mmol/L Chloride (98-107) mmol/L BUN (9-20) mg/dL Creatinine (0.66-1.25) mg/dL Glucose (74-99) mg/dL POC Glucose (mg/dL) 282 H 292 H (75-99) mg/dL Calcium (8.4-10.2) mg/dL C-Reactive Protein (<1.0) mg/dL 01/20/22 Range/Units 07:42 RBC (4.30-5.90) m/uL Hgb (13.0-17.5) gm/dL Hct (39.0-53.0) % MCV (80.0-100.0) fL MCHC (31.0-37.0) g/dL RDW (11.5-15.5) % Lymphocytes # (1.0-4.8) k/uL Sodium 147 H (137-145) mmol/L Potassium (3.5-5.1) mmol/L Chloride 116 H (98-107) mmol/L BUN 86 H (9-20) mg/dL Creatinine 1.86 H (0.66-1.25) mg/dL Glucose 266 H (74-99) mg/dL POC Glucose (mg/dL) (75-99) mg/dL Calcium 8.2 L (8.4-10.2) mg/dL C-Reactive Protein (<1.0) mg/dL Microbiology - Last 24 Hours (Table) 01/18/22 14:15 Gram Stain - Preliminary Abdomen Wound Culture - Preliminary Gram Neg Bacilli Vesta albicans Assessment and Plan Assessment: 1. Acute kidney injury, ATN nonoliguric secondary to hypotension and sepsis as well as an obstructive, component. CT of the abdomen on initial admission showed the parastomal hernia with obstruction and mild bilateral hydronephrosis and hydroureter. Currently urine output is good urine ostomy seems to be working fairly well. Continue with IV fluids 2. Incarcerated parastomal hernia and necrotic bowel status post emergency resection of the bowel with ileostomy and repair of strangulated parastomal hernia. 3. Hypotension from sepsis maintained on antibiotics and levo fed has been discontinued 4. History of bladder cancer status post cystectomy and ileal loop urostomy 5. Hyperkalemia associated with acute kidney injury and metabolic acidosis, resolved 6. Metabolic acidosis associated with acute kidney injury and hypotension, status post IV bicarb 7. Pseudomonas bacteremia, source is likely abdominal. Urine culture is negativtive 8. Profound weakness. Swallow eval to be performed today. Plan: Continue D5W. Agree with swallowing evaluation. Currently not receiving any oral medications. Continue with IV antibiotics
[2022-01-20] MEDS: METOPROLOL TARTRATE 50 MG TAB PO SCH ×2 (10:26→20:59)
[2022-01-20 10:45] LABS: INR 1.1 (<1.2); Partial Thromboplastin Time 24.6 sec (22.0-30.0); Prothrombin Time 11.9 sec (9.0-12.0)
--- NOTE | 2022-01-20 11:18 | XR ---
EXAMINATION TYPE: XR chest 1V portable DATE OF EXAM: 01/20/2022 COMPARISON: 01/17/2022 HISTORY: Shortness of breath TECHNIQUE: Single frontal view of the chest is obtained. FINDINGS: Right-sided PICC line seen overlying the right atrial SVC confluence. Additional right IJ central line seen with tip overlying the right atrium. Interstitial lung pattern again noted with bonnie ateral infiltrate and small effusion. Heart size stable. Atherosclerotic change aorta. No pneumothora x. IMPRESSION: Bilateral pleural-parenchymal changes with infiltrate and pleural effusion stable.
[2022-01-20] MEDS: HEPARIN SOD,PORK IN 0.45% NACL 25,000 UNIT in 0.45% NACL 1 250ML.BAG IV SCH (11:51)
[2022-01-20 11:55] LABS: Glucose,Whole Blood 209 mg/dL (75-99)
--- NOTE | 2022-01-20 12:58 | P.PN ---
Subjective Progress Note Date: 01/20/22 HISTORY OF PRESENT ILLNESS: This is a 72-year-old gentleman with history of coronary artery disease with previous PCI, diabetes mellitus, hypertension and hyperlipidemia and also hi story of bladder cancer with urostomy. Patient is status post surgery for perforated viscus. Patient is also intubated. His echocardiogram showed an ejection fraction about 35-40% with global hypokinesia without any significant valvular abnormalities. Patient had an episode of A. fib but converted back to sinus rhythm. In the rhythm appears to be mostly is a sinus rhythm with APCs are multifocal atrial rhythm at this time. 01/14/2022: This patient is status post surgery for possible perforated viscus. Patient also has sepsis. We're following patient because of intermittent atrial fibrillation. Patient is currently on IV Cardizem 5 mg daily is maintaining sinus rhythm. His her multiple medications including antibiotics. Still on mechanical ventilator. His echo [place] showed ejection fraction 35-40%. We'll continue current management. We'll follow. 01/15/2022: This patient with history of coronary artery disease, diabetes, hypertension and hypercholesterolemia who was admitted to the abdominal pain and was noted. Strength ablation of the small bowel in the parastomal hernia. Patient underwent surgical procedure including small bowel resection and ileostomy. Patient is also being treated for sepsis and bacteremia and also hypertension. patient had episodes of atrial fibrillation and was treated with amiodarone. Patient is on IV Cardizem and maintaining sinus rhythm. Patient had thrombocytopenia and also anemia. Platelet count is improving and seemed to be around 1 20,000. However, his hemoglobin dropped to 7.8. Patient needs to go on and decortication therapy because of his coronary artery disease and impaired LV function. He was okay with the surgical team, patient to be constricted for Eliquis 5 mg by mouth twice a day. However, his platelet counts and hemoglobin 8 followed closely. 01/16/2022: This patient is extubated today. Is awake but seemed to be weak and frail. Patient is afebrile. So far his maintaining sinus rhythm. He is on a nticoagulation therapy is also on IV Cardizem. We'll switch to by mouth Cardizem. He is also on amiodarone 400 mg by mouth twice a day. We will taper the amiodarone to 200 mg by mouth twice a day from tomorrow. Chest x-ray shows bilateral infiltrates. Apparently blood cultures have been negative. His hemoglobin dropped to 6.8. Surgical team is following. Plan is to repeat hemoglobin in the afternoon. If hemoglobin evidence for the, may have to discontinue anticoagulation. Further examination depend upon clinical course. 01/17/2022: Patient remained extubated. He seemed to be more alert, maintaining oxygen saturation. Chest x-ray shows stable findings. Patient seemed to maintaining sinus rhythm. He is on by mouth Cardizem and amiodarone. I will cut back the dose of amiodarone and tomorrow to 200 mg by mouth twice a day. Potassium is low which is being corrected. He is also on anti-cognition therapy. Hemoglobin is maintaining about 6.8-7 g range. Rest of the management as for intensivists 01/18: Patient has been transferred out of the intensive care unit and seen today on the cardiac stepdown unit. Patient has transition from atrial fibrillation to sinus rhythm. He has been started on anticoagulation with eliquis. He is currently on amiodarone 400 mg twice daily and will maintain this dose for another 24 hours 01/19: surveillance system monitor is atrial fibrillation in the low 100s, blood pressure 97/53. Patient is currently on amiodarone, Cardizem, IV Lasix managed by nephrology. Pulmonary started patient on midodrine yesterday. No adjustment in medications will be made by us today to marginal blood pressure. 01/20/2022 Patient examined this morning at the bedside. Patient is lethargic. Per nursing, patient has been like this for the past few days. She also reports patient is unable to take any of his oral medications. Patient is currently in afib with heart rates around 110-120. Blood pressure 102/62. PHYSICAL EXAM: VITAL SIGNS: Reviewed. GENERAL: Well-developed in no acute distress. Lethargic. NECK: Supple. No JVD or thyromegaly LUNGS: Respirations even and unlabored. Lungs diminished auscultation bilaterally. HEART: Tachycardic. Irregular rate and rhythm. S1 and S2 heard. EXTREMITIES: Normal range of motion. No clubbing or cyanosis. Peripheral pulses intact. No lower extremity edema ASSESSMENT: Atrial fibrillation with RVR, paroxysmal atrial fibrillation Strangulated parastomal hernia and incisional hernia status post exploratory laparotomy, Repair of strangulated parastomal hernia, Small bowel resection with ileostomy and Repair of incisional hernia Abdominal incision infection Sepsis with septic shock Acute kidney injury Chronic kidney disease Hypernatremia Septic shock secondary to Pseudomonas Bacteremia PLAN: Patient currently lethargic and unable to take any oral medications Per Dr. Treadwell, begin IV heparin as patient can not take oral Eliquis Per Dr. Treadwell, begin IV cardizem bolus and drip (Dr. Treadwell aware of low EF) Resume oral medications when able Continue telemetry monitoring Continue IV lasix per nephrology Further recommendations pending patient course Nurse practitioner note has been reviewed by physician. Signing provider agrees with the documented findings, assessment, and plan of care. Objective - Vital Signs Vital signs: Vital Signs Temp 97.3 F L 01/20/22 11:43 Pulse 82 01/20/22 11:43 Resp 16 01/20/22 11:43 BP 102/62 01/20/22 11:43 Pulse Ox 100 01/20/22 11:43 Intake & Output 01/19/22 01/20/22 01/20/22 18:59 06:59 18:59 Intake Total 0 0 Output Total 1000 2675 1450 Balance -1000 -2675 -1450 Intake: Oral 0 0 Output: Urine 1000 2550 1450 Suprapubic 1000 Stool 125 Other: Voiding Method Ileal Conduit (Right) Ileal Conduit (Right) Ileal Conduit (Right) ABP, PAP, CO, CI - Last Documented Arterial Blood Pressure 108/42 - Labs CBC & Chem 7: 01/20/22 07:42 01/20/22 07:42 Labs: Abnormal Lab Results - Last 24 Hours (Table) 01/19/22 01/20/22 01/20/22 Range/Units 17:06 00:04 06:12 RBC (4.30-5.90) m/uL Hgb (13.0-17.5) gm/dL Hct (39.0-53.0) % MCV (80.0-100.0) fL MCHC (31.0-37.0) g/dL RDW (11.5-15.5) % Lymphocytes # (1.0-4.8) k/uL Sodium (137-145) mmol/L Chloride (98-107) mmol/L BUN (9-20) mg/dL Creatinine (0.66-1.25) mg/dL Glucose (74-99) mg/dL POC Glucose (mg/dL) 230 H 282 H 292 H (75-99) mg/dL Calcium (8.4-10.2) mg/dL 01/20/22 01/20/22 01/20/22 Range/Units 07:42 07:42 11:54 RBC 2.52 L (4.30-5.90) m/uL Hgb 7.5 L (13.0-17.5) gm/dL Hct 26.2 L (39.0-53.0) % MCV 104.1 H (80.0-100.0) fL MCHC 28.6 L (31.0-37.0) g/dL RDW 16.0 H (11.5-15.5) % Lymphocytes # 0.3 L (1.0-4.8) k/uL Sodium 147 H (137-145) mmol/L Chloride 116 H (98-107) mmol/L BUN 86 H (9-20) mg/dL Creatinine 1.86 H (0.66-1.25) mg/dL Glucose 266 H (74-99) mg/dL POC Glucose (mg/dL) 209 H (75-99) mg/dL Calcium 8.2 L (8.4-10.2) mg/dL Microbiology - Last 24 Hours (Table) 01/18/22 14:15 Gram Stain - Preliminary Abdomen Wound Culture - Preliminary Gram Neg Bacilli Vesta albicans
[2022-01-20] MEDS ORDERED: DILTIAZEM DRIP BOLUS FROM BAG 1 MG SOLN IV ONE (13:00)
--- NOTE | 2022-01-20 13:37 | P.PN ---
Subjective Progress Note Date: 01/20/22 Principal diagnosis: Shortness of breath, sepsis On 01/20/2022 patient seen in follow-up on selective care unit. He is awake and alert, but he seems to be dyspneic, he is currently on 4 L of oxygen a pulse ox of 92-96%, he is able to answer some simple questions, his oral membranes are very dry, patient has been nothing by mouth he is awaiting a formal swallow evaluation, generally he is quite weak. He is generally swollen, with edema in his upper and lower extremities and truncal edema. He remains on a combination of daptomycin and meropenem and fluconazole. His chest x-ray today shows bilateral pleural effusions and interstitial lung pattern, patient remains on IV Lasix at 40 mg every 12 hours. Patient is currently in -3.6 L over the last 24 hours. Abdominal wound cultures are positive for gram-negative bacilli, and Vesta albicans, blood cultures from 01/06/2022 and 01/07/2022 were positive for pseudomonas aeruginosa, subsequent blood culture from 01/10/2022 showed Proprionibacterium species. Vital signs have been stable, patient has been afebrile, maintaining O2 saturations above 90-92% on 4 L. Patient is in sinus mechanism with PACs, he is on Eliquis however. Has not been able to consciously take oral medications related to difficulty swallowing. For that reason patient is being switched to low intensity heparin by cardiology. She remains on D5W at 100 ML per hour, he has been transitioned to oral amiodarone at 400 mg twice daily. He remains on stress doses of hydrocortisone at 50 mg every 8 hours, and midodrine. Blood pressures have improved, and currently at 102/62 with a mean of 75. Mid abdominal incision is clean dry and intact, his ileostomy is producing soft stool, and his urostomy is producing yellow clear urine. Objective - Vital Signs Vital signs: Vital Signs Temp 97.3 F L 01/20/22 11:43 Pulse 82 01/20/22 11:43 Resp 16 01/20/22 11:43 BP 102/62 01/20/22 11:43 Pulse Ox 100 01/20/22 11:43 Intake & Output 01/19/22 01/20/22 01/20/22 18:59 06:59 18:59 Intake Total 0 0 Output Total 1000 2675 1450 Balance -1000 -2675 -1450 Intake: Oral 0 0 Output: Urine 1000 2550 1450 Suprapubic 1000 Stool 125 Other: Voiding Method Ileal Conduit (Right) Ileal Conduit (Right) Ileal Conduit (Right) ABP, PAP, CO, CI - Last Documented Arterial Blood Pressure 108/42 - Exam GENERAL EXAM: Alert, very weak, 72-year-old mildly dyspneic white male, on 4 L of oxygen pulse ox of 92-100%, comfortable in no apparent distress. HEAD: Normocephalic/atraumatic. EYES: Normal reaction of pupils, equal size. Conjunctiva pink, sclera white. NOSE: Clear with pink turbinates. THROAT: No erythema or exudates. NECK: No masses, no JVD, no thyroid enlargement, no adenopathy. CHEST: No chest wall deformity. Symmetrical expansion. LUNGS: Equal air entry with no crackles, wheeze, rhonchi or dullness. CVS: Regular rate and rhythm, normal S1 and S2, no gallops, no murmurs, no rubs ABDOMEN: Soft, nontender. No hepatosplenomegaly, normal bowel sounds, no guarding or rigidity. Midabdominal incision is clean dry and intact, left lower quadrant ileostomy with liquid brown stool, and right lower quadrant urostomy with clear yellow urine EXTREMITIES: No clubbing, generalized edema and edema involving his upper and lower extremities and truncal edema no cyanosis, 2+ pulses and upper and lower extremities. MUSCULOSKELETAL: Muscle strength and tone normal. SPINE: No scoliosis or deformity SKIN: No rashes CENTRAL NERVOUS SYSTEM: Alert and oriented -2. No focal deficits, tone is nor mal in all 4 extremities. PSYCHIATRIC: Alert and oriented -2. Appropriate affect. Intact judgment and insight. - Labs CBC & Chem 7: 01/20/22 07:42 01/20/22 07:42 Labs: Abnormal Lab Results - Last 24 Hours (Table) 01/19/22 01/20/22 01/20/22 Range/Units 17:06 00:04 06:12 RBC (4.30-5.90) m/uL Hgb (13.0-17.5) gm/dL Hct (39.0-53.0) % MCV (80.0-100.0) fL MCHC (31.0-37.0) g/dL RDW (11.5-15.5) % Lymphocytes # (1.0-4.8) k/uL Sodium (137-145) mmol/L Chloride (98-107) mmol/L BUN (9-20) mg/dL Creatinine (0.66-1.25) mg/dL Glucose (74-99) mg/dL POC Glucose (mg/dL) 230 H 282 H 292 H (75-99) mg/dL Calcium (8.4-10.2) mg/dL 01/20/22 01/20/22 01/20/22 Range/Units 07:42 07:42 11:54 RBC 2.52 L (4.30-5.90) m/uL Hgb 7.5 L (13.0-17.5) gm/dL Hct 26.2 L (39.0-53.0) % MCV 104.1 H (80.0-100.0) fL MCHC 28.6 L (31.0-37.0) g/dL RDW 16.0 H (11.5-15.5) % Lymphocytes # 0.3 L (1.0-4.8) k/uL Sodium 147 H (137-145) mmol/L Chloride 116 H (98-107) mmol/L BUN 86 H (9-20) mg/dL Creatinine 1.86 H (0.66-1.25) mg/dL Glucose 266 H (74-99) mg/dL POC Glucose (mg/dL) 209 H (75-99) mg/dL Calcium 8.2 L (8.4-10.2) mg/dL Microbiology - Last 24 Hours (Table) 01/18/22 14:15 Gram Stain - Preliminary Abdomen Wound Culture - Preliminary Gram Neg Bacilli Vesta albicans Assessment and Plan Plan: Assessment: #1. Acute abdominal pain secondary to parastomal hernia containing small bowel demonstrating pneumobilia suggesting strangulation of the small bowel with possible perforation. Subcutaneous gas which may represent superimposed infection. Status post exploratory laparotomy, repair of strangulated parastomal hernia small bowel resection with ileostomy, repair of incisional hernia performed on 01/06/2022 #2. Sepsis with pseudomonal bacteremia #3. Acute hypoxic respiratory failure secondary to acute sepsis requiring prolonged intubation, successfully weaned and extubated on 01/16/2022 #4. Acute lactic acidosis resolved #5. Acute kidney injury, improving #6. Hyperkalemia related to acute kidney injury improved #7. A. fib with RVR, currently sinus mechanism, has been started on Eliquis not back on heparin related to inability to take oral medications #8. Hyponatremia related to free water deficit, currently on D5W at 100 ML per hour, and this is improving #9. Diabetes mellitus type 2 #10. Hyperlipidemia #11. BPH #12. Coronary artery disease with previous stent placement #13. History of chronic tobacco dependence in remission #14. Anemia of chronic disease #15. Thrombocytopenia, mild, improved related to sepsis #16. General medical debility related to prolonged ventilator support and critical illness polyneuropathy Plan: Today's chest x-ray has been reviewed showing bilateral pleural effusions, and interstitial edema, changes consistent with fluid overload Continue with IV Lasix Maintain aspiration precautions Continue antibiotics per ID service recommendations Obtain a speech evaluation Vital signs are stable Wean FiO2 to keep O2 sats at or above 90% Generally patient is quite debilitated Physical therapy evaluation and treatment We'll continue to follow his clinical course I performed a history & physical examination of the patient and discussed their management with my nurse practitioner, Amber Schulte. I reviewed the nurse practitioner's note and agree with the documented findings and plan of care. Lung sounds are positive for diminished breath sounds throughout the lung field s. The findings and the impression was discussed with the patient. I attest to the documentation by the nurse practitioner. Time with Patient: Less than 30
--- NOTE | 2022-01-20 13:39 | P.PN ---
Subjective Progress Note Date: 01/20/22 CHIEF COMPLAINT: Strangulated parastomal hernia HISTORY OF PRESENT ILLNESS: Patient is status post Exploratory laparotomy, Repair of strangulated parastomal hernia, Small bowel resection with ileostomy and Repair of incisional hernia on 01/06/22. Patient is currently on a regular medical floor. He is lethargic. Per nursing staff he is not eating. And they are unable to get him to take oral medications. His ostomy is functioning. Afebrile. Sodium is 4.6 hemoglobin 7.5 platelets 181 INR 1.1 sodium 147 potassium 3.7 creatinine 1.86 magnesium 1.6 cardiology has transition patient to IV heparin and IV Cardizem due to him a unable to take oral medications. Wound cultures gram-negative bacilli and Vesta albicans Patient seen and examined with Dr. allen PHYSICAL EXAM: VITAL SIGNS: Reviewed. GENERAL: Well-developed in no acute distress. HEENT: No sclera icterus. Extraocular movements grossly intact. Moist buccal mucosa. Head is atraumatic, normocephalic. ABDOMEN: Soft. Abdominal incision site clean dry and intact. 2 areas are open with gauze placed. Ileostomy liquidy brown stool. Urostomy stoma pink. Urine is clear NEUROLOGIC: Lethargic ASSESSMENT: 1. Strangulated parastomal hernia and incisional hernia status post Exploratory laparotomy, Repair of strangulated parastomal hernia, Small bowel resection with ileostomy and Repair of incisional hernia 2. Abdominal incision infection 3. History of bladder cancer with urostomy 4. Acute kidney injury 5. Sepsis and septic shock 6. Bacteremia with Pseudomonas 7. New onset of A. fib PLAN: -Continue local wound care -Continue supportive care -Continue antibiotics per ID -Okay to transition patient to IV heparin from surgical standpoint. Patient was unable to take oral Eliquis Physician Dry Plasterer Helper note has been reviewed by physician. Signing provider agrees with the documented findings, assessment, and plan of care. Objective - Vital Signs Vital signs: Vital Signs Temp 97.3 F L 01/20/22 11:43 Pulse 82 01/20/22 11:43 Resp 16 01/20/22 11:43 BP 102/62 01/20/22 11:43 Pulse Ox 100 01/20/22 11:43 Intake & Output 01/19/22 01/20/22 01/20/22 18:59 06:59 18:59 Intake Total 0 0 Output Total 1000 8328 5544 Balance -1000 -8502 -0419 Intake: Oral 0 0 Output: Urine 1000 2550 1450 Suprapubic 1000 Stool 125 Other: Voiding Method Ileal Conduit (Right) Ileal Conduit (Right) Ileal Conduit (Right) ABP, PAP, CO, CI - Last Documented Arterial Blood Pressure 108/42 - Labs CBC & Chem 7: 01/20/22 07:42 01/20/22 07:42 Labs: Abnormal Lab Results - Last 24 Hours (Table) 01/19/22 01/20/22 01/20/22 Range/Units 17:06 00:04 06:12 RBC (4.30-5.90) m/uL Hgb (13.0-17.5) gm/dL Hct (39.0-53.0) % MCV (80.0-100.0) fL MCHC (31.0-37.0) g/dL RDW (11.5-15.5) % Lymphocytes # (1.0-4.8) k/uL Sodium (137-145) mmol/L Chloride (98-107) mmol/L BUN (9-20) mg/dL Creatinine (0.66-1.25) mg/dL Glucose (74-99) mg/dL POC Glucose (mg/dL) 230 H 282 H 292 H (75-99) mg/dL Calcium (8.4-10.2) mg/dL 01/20/22 01/20/22 01/20/22 Range/Units 07:42 07:42 11:54 RBC 2.52 L (4.30-5.90) m/uL Hgb 7.5 L (13.0-17.5) gm/dL Hct 26.2 L (39.0-53.0) % MCV 104.1 H (80.0-100.0) fL MCHC 28.6 L (31.0-37.0) g/dL RDW 16.0 H (11.5-15.5) % Lymphocytes # 0.3 L (1.0-4.8) k/uL Sodium 147 H (137-145) mmol/L Chloride 116 H (98-107) mmol/L BUN 86 H (9-20) mg/dL Creatinine 1.86 H (0.66-1.25) mg/dL Glucose 266 H (74-99) mg/dL POC Glucose (mg/dL) 209 H (75-99) mg/dL Calcium 8.2 L (8.4-10.2) mg/dL Microbiology - Last 24 Hours (Table) 01/18/22 14:15 Gram Stain - Preliminary Abdomen Wound Culture - Preliminary Gram Neg Bacilli Vesta albicans
[2022-01-20] MEDS ORDERED: MAGNESIUM SULFATE-D5W PMX 1 GM in DEXTROSE/WATER 1 100ML.BAG IVPB ONE (13:45)
[2022-01-20] MEDS: DILTIAZEM 125 MG in SODIUM CHLORIDE 0.9% 100 ML IV SCH (15:24)
[2022-01-20 17:00] LABS: Glucose,Whole Blood 168 mg/dL (75-99)
[2022-01-20] MEDS: FLUCONAZOLE IN NACL,ISO-OSM 100 MG in SALINE 1 50ML.BAG IVPB SCH (17:41)
--- NOTE | 2022-01-20 23:38 | P.PN ---
Subjective Progress Note Date: 01/20/22 Pt is on 4 LPM O2 today, he is alert although weak and unable to swallow or speak. Pt continues on daptomycin and meropenem as well as fluconazole for psuedomonas bacteremia. Afebrile. Objective - Vital Signs Vital signs: Vital Signs Temp 97.7 F 01/20/22 20:00 Pulse 80 01/20/22 20:00 Resp 18 01/20/22 20:00 BP 118/61 01/20/22 20:00 Pulse Ox 96 01/20/22 20:00 Intake & Output 01/20/22 01/20/22 01/21/22 06:59 18:59 06:59 Intake Total 0 75.5 Output Total 2675 1470 Balance -2675 -1470 75.5 Intake: Intake, IV Titration 75.5 Amount Heparin Sod,Pork in 0.45% 75.5 NaCl 25,000 unit In 0.45 % NaCl 1 250ml.bag @ 10. 384 UNITS/KG/HR 10 mls/hr IV [facility] Rx#: [id number] Oral 0 Output: Urine 2550 1450 Stool 125 20 Other: Voiding Method Ileal Conduit (Right) Ileal Conduit (Right) Ileal Conduit (Right) ABP, PAP, CO, CI - Last Documented Arterial Blood Pressure 108/42 - Exam General: Ill appearing. Vitals reviewed Lungs: on 4 LPM O2, no rales or wheezing CV: Regular rate and rhythm, no murmur. Peripheral pulses 1+ Abdomen: soft, nondistended, no organomegaly Skin: dry - Labs CBC & Chem 7: 01/20/22 07:42 01/20/22 07:42 Labs: Abnormal Lab Results - Last 24 Hours (Table) 01/20/22 01/20/22 01/20/22 Range/Units 00:04 06:12 07:42 RBC 2.52 L (4.30-5.90) m/uL Hgb 7.5 L (13.0-17.5) gm/dL Hct 26.2 L (39.0-53.0) % MCV 104.1 H (80.0-100.0) fL MCHC 28.6 L (31.0-37.0) g/dL RDW 16.0 H (11.5-15.5) % Lymphocytes # 0.3 L (1.0-4.8) k/uL APTT (22.0-30.0) sec Sodium (137-145) mmol/L Chloride (98-107) mmol/L BUN (9-20) mg/dL Creatinine (0.66-1.25) mg/dL Glucose (74-99) mg/dL POC Glucose (mg/dL) 282 H 292 H (75-99) mg/dL Calcium (8.4-10.2) mg/dL 01/20/22 01/20/22 01/20/22 Range/Units 07:42 11:54 16:54 RBC (4.30-5.90) m/uL Hgb (13.0-17.5) gm/dL Hct (39.0-53.0) % MCV (80.0-100.0) fL MCHC (31.0-37.0) g/dL RDW (11.5-15.5) % Lymphocytes # (1.0-4.8) k/uL APTT (22.0-30.0) sec Sodium 147 H (137-145) mmol/L Chloride 116 H (98-107) mmol/L BUN 86 H (9-20) mg/dL Creatinine 1.86 H (0.66-1.25) mg/dL Glucose 266 H (74-99) mg/dL POC Glucose (mg/dL) 209 H 168 H (75-99) mg/dL Calcium 8.2 L (8.4-10.2) mg/dL 01/20/22 Range/Units 17:47 RBC (4.30-5.90) m/uL Hgb (13.0-17.5) gm/dL Hct (39.0-53.0) % MCV (80.0-100.0) fL MCHC (31.0-37.0) g/dL RDW (11.5-15.5) % Lymphocytes # (1.0-4.8) k/uL APTT 35.3 H (22.0-30.0) sec Sodium (137-145) mmol/L Chloride (98-107) mmol/L BUN (9-20) mg/dL Creatinine (0.66-1.25) mg/dL Glucose (74-99) mg/dL POC Glucose (mg/dL) (75-99) mg/dL Calcium (8.4-10.2) mg/dL Microbiology - Last 24 Hours (Table) 01/18/22 14:15 Gram Stain - Final Abdomen Wound Culture - Final Pseudomonas aeruginosa Vesta albicans Assessment and Plan Plan: Continue with present treamtent, IV abx, diflucan. Switch eliquis to heparin per cardiology. Swallow evaluation and Neurology consult to eval for CVA. Consider brian aguirre. Follow labs
[2022-01-21 00:03] LABS: Glucose,Whole Blood 146 mg/dL (75-99)
[2022-01-21] MEDS: INSULIN ASPART (NovoLOG) 100 UNIT/ML VIAL SQ SCH ×4 (00:03→18:10)
[2022-01-21] MEDS: DEXTROSE 5% IN WATER 1,000 ML IV SCH ×3 (04:53→19:51)
[2022-01-21 06:16] LABS: Glucose,Whole Blood 107 mg/dL (75-99)
[2022-01-21] MEDS: MIDODRINE 5 MG TAB PO SCH ×3 (06:34→15:17)
[2022-01-21] MEDS: INSULIN DETEMIR (LEVEMIR) 100 UNIT/ML SYR SQ SCH ×2 (06:37→20:57)
[2022-01-21] MEDS: HYDROCORTISONE SUCCINATE 100 MG/2 ML VIAL IV SCH ×3 (06:38→20:57)
[2022-01-21] MEDS: ASPIRIN 81 MG PO SCH (08:48)
[2022-01-21] MEDS: METOPROLOL TARTRATE 50 MG TAB PO SCH ×2 (08:48→19:50)
[2022-01-21] MEDS: AMIODARONE 200 MG TAB PO SCH ×2 (08:48→19:50)
[2022-01-21] MEDS: PANTOPRAZOLE 40 MG/10 ML VIAL IVP SCH (09:00)
[2022-01-21] MEDS: HEPARIN SOD,PORK IN 0.45% NACL 25,000 UNIT in 0.45% NACL 1 250ML.BAG IV SCH (09:03)
[2022-01-21] MEDS: MEROPENEM 1 GM in SODIUM CHLORIDE 0.9% 100 ML IVPB SCH ×3 (09:16→23:45)
[2022-01-21 09:29] LABS: Basophils % (A) 0 %; Eosinophils % (A) 1 %; HCT 23.4 % (39.0-53.0); HGB 7.3 gm/dL (13.0-17.5); Hypochromasia Marked; Lymphocytes # (A) 0.3 k/uL (1.0-4.8); Lymphocytes % (A) 6 %; MCH 31.2 pg (25.0-35.0); MCHC 31.1 g/dL (31.0-37.0); MCV 100.4 fL (80.0-100.0); Macrocytosis Slight; Mean Platelet Volume 9.5; Monocytes # (A) 0.1 k/uL (0-1.0); Monocytes % (A) 3 %; Neutrophils # (A) 4.5 k/uL (1.3-7.7); Neutrophils % (A) 90 %; Platelet Count 152 k/uL (150-450); RBC 2.33 m/uL (4.30-5.90); RDW 15.3 % (11.5-15.5)
[2022-01-21 09:47] LABS: INR 1.2 (<1.2); Prothrombin Time 12.6 sec (9.0-12.0)
[2022-01-21 09:58] LABS: Potassium 2.8 mmol/L (3.5-5.1)
--- NOTE | 2022-01-21 10:23 | P.PN ---
Subjective Progress Note Date: 01/21/22 Principal diagnosis: Shortness of breath, sepsis On 01/20/2022 patient seen in follow-up on selective care unit. He is awake and alert, but he seems to be dyspneic, he is currently on 4 L of oxygen a pulse ox of 92-96%, he is able to answer some simple questions, his oral membranes are very dry, patient has been nothing by mouth he is awaiting a formal swallow evaluation, generally he is quite weak. He is generally swollen, with edema in his upper and lower extremities and truncal edema. He remains on a combination of daptomycin and meropenem and fluconazole. His chest x-ray today shows bilateral pleural effusions and interstitial lung pattern, patient remains on IV Lasix at 40 mg every 12 hours. Patient is currently in -3.6 L over the last 24 hours. Abdominal wound cultures are positive for gram-negative bacilli, and Vesta albicans, blood cultures from 01/06/2022 and 01/07/2022 were positive for pseudomonas aeruginosa, subsequent blood culture from 01/10/2022 showed Proprionibacterium species. Vital signs have been stable, patient has been afebrile, maintaining O2 saturations above 90-92% on 4 L. Patient is in sinus mechanism with PACs, he is on Eliquis however. Has not been able to consciously take oral medications related to difficulty swallowing. For that reason patient is being switched to low intensity heparin by cardiology. She remains on D5W at 100 ML per hour, he has been transitioned to oral amiodarone at 400 mg twice daily. He remains on stress doses of hydrocortisone at 50 mg every 8 hours, and midodrine. Blood pressures have improved, and currently at 102/62 with a mean of 75. Mid abdominal incision is clean dry and intact, his ileostomy is producing soft stool, and his urostomy is producing yellow clear urine. On 01/21/2022 patient seen in follow-up on selective care unit, he is awake and alert, however he is wasted is very weak, soft, through difficult to understand him, however he tries to whisper words back in response, seems to be appropriate. He seems to be less short of breath on today's exam, he is curre ntly on 4 L of oxygen the pulse ox of 96%, blood pressure stable at 136/64, she is afebrile, he remains on antibiotics for bacteremia related to pseudomonas aeruginosa, to intra-abdominal source, abdominal cultures also showed pseudomonas aeruginosa and Vesta albicans. ID service is following. Patient denies any shortness of breath, lung sounds are diminished, his oral mucous membranes are dry, yesterday patient has failed swallow evaluation, he is being considered for TPN initiation today, surgical services are following and patient may need a PEG tube placement if the is agreeable to it. We stop patient's Lasix yesterday is she seemed to be quite dehydrated, she remains on D5W at a rate of 100 ML per hour, his labs 7 reviewed, white blood cell count is 5.0, hemoglobin 7.3, sodium is 147, potassium is 2.8, chloride is 114, CO2 is 31, BUN is 71, and creatinine is 1.71. His urostomy and ileostomy are producing clear yellow urine and loose green stool. Stool for occult blood was negative, patient has not been able to take his oral medications due to difficulty swallowing, and currently patient is on heparin for atrial fibrillation. Objective - Vital Signs Vital signs: Vital Signs Temp 98.1 F 01/21/22 08:00 Pulse 89 01/21/22 08:00 Resp 20 01/21/22 08:00 BP 136/64 01/21/22 08:00 Pulse Ox 96 01/21/22 08:00 Intake & Output 01/20/22 01/21/22 01/21/22 18:59 06:59 18:59 Intake Total 75.5 162.79 Output Total 1470 1700 Balance -1470 -1624.5 162.79 Weight 96.3 kg Intake: Intake, IV Titration 75.5 162.79 Amount Heparin Sod,Pork in 0.45% 75.5 162.79 NaCl 25,000 unit In 0.45 % NaCl 1 250ml.bag @ 10. 384 UNITS/KG/HR 10 mls/hr IV .Q24H [facility] Rx#: [id number] Output: Urine 1450 1675 Stool 20 25 Other: Voiding Method Ileal Conduit (Right) Ileal Conduit (Right) Ileal Conduit (Rig ht) ABP, PAP, CO, CI - Last Documented Arterial Blood Pressure 108/42 - Exam GENERAL EXAM: Alert, very weak, 72-year-old mildly dyspneic white male, on 4 L of oxygen pulse ox of 92-100%, comfortable in no apparent distress. HEAD: Normocephalic/atraumatic. EYES: Normal reaction of pupils, equal size. Conjunctiva pink, sclera white. NOSE: Clear with pink turbinates. MOUTH: dry mucous membranes THROAT: No erythema or exudates. NECK: No masses, no JVD, no thyroid enlargement, no adenopathy. CHEST: No chest wall deformity. Symmetrical expansion. LUNGS: Equal air entry with no crackles, wheeze, rhonchi or dullness. CVS: Regular rate and rhythm, normal S1 and S2, no gallops, no murmurs, no rubs ABDOMEN: Soft, nontender. No hepatosplenomegaly, normal bowel sounds, no guarding or rigidity. Midabdominal incision is clean dry and intact, left lower quadrant ileostomy with liquid brown stool, and right lower quadrant urostomy with clear yellow urine EXTREMITIES: No clubbing, generalized edema and edema involving his left upper and mild edema in bonnie lower extremities and truncal edema no cyanosis, 2+ pulses and upper and lower extremities. MUSCULOSKELETAL: Muscle strength and tone normal. SPINE: No scoliosis or deformity SKIN: No rashes CENTRAL NERVOUS SYSTEM: Alert and oriented -2. No focal deficits, tone is normal in all 4 extremities. PSYCHIATRIC: Alert and oriented -2. Appropriate affect. Intact judgment and insight. - Labs CBC & Chem 7: 01/21/22 09:10 01/21/22 09:10 Labs: Abnormal Lab Results - Last 24 Hours (Table) 01/20/22 01/20/22 01/20/22 Range/Units 11:54 16:54 17:47 RBC (4.30-5.90) m/uL Hgb (13.0-17.5) gm/dL Hct (39.0-53.0) % MCV (80.0-100.0) fL Lymphocytes # (1.0-4.8) k/uL PT (9.0-12.0) sec INR (<1.2) APTT 35.3 H (22.0-30.0) sec Sodium (137-145) mmol/L Potassium (3.5-5.1) mmol/L Chloride (98-107) mmol/L Carbon Dioxide (22-30) mmol/L BUN (9-20) mg/dL Creatinine (0.66-1.25) mg/dL POC Glucose (mg/dL) 209 H 168 H (75-99) mg/dL Calcium (8.4-10.2) mg/dL 01/21/22 01/21/22 01/21/22 Range/Units 00:01 01:34 06:14 RBC (4.30-5.90) m/uL Hgb (13.0-17.5) gm/dL Hct (39.0-53.0) % MCV (80.0-100.0) fL Lymphocytes # (1.0-4.8) k/uL PT (9.0-12.0) sec INR (<1.2) APTT 48.5 H (22.0-30.0) sec Sodium (137-145) mmol/L Potassium (3.5-5.1) mmol/L Chloride (98-107) mmol/L Carbon Dioxide (22-30) mmol/L BUN (9-20) mg/dL Creatinine (0.66-1.25) mg/dL POC Glucose (mg/dL) 146 H 107 H (75-99) mg/dL Calcium (8.4-10.2) mg/dL 01/21/22 01/21/22 01/21/22 Range/Units 09:10 09:10 09:10 RBC 2.33 L (4.30-5.90) m/uL Hgb 7.3 L (13.0-17.5) gm/dL Hct 23.4 L (39.0-53.0) % MCV 100.4 H (80.0-100.0) fL Lymphocytes # 0.3 L (1.0-4.8) k/uL PT 12.6 H (9.0-12.0) sec INR 1.2 H (<1.2) APTT (22.0-30.0) sec Sodium 147 H (137-145) mmol/L Potassium 2.8 L (3.5-5.1) mmol/L Chloride 114 H (98-107) mmol/L Carbon Dioxide 31 H (22-30) mmol/L BUN 71 H (9-20) mg/dL Creatinine 1.71 H (0.66-1.25) mg/dL POC Glucose (mg/dL) (75-99) mg/dL Calcium 8.0 L (8.4-10.2) mg/dL Microbiology - Last 24 Hours (Table) 01/18/22 14:15 Gram Stain - Final Abdomen Wound Culture - Final Pseudomonas aeruginosa Vesta albicans Assessment and Plan Plan: Assessment: #1. Acute abdominal pain secondary to parastomal hernia containing small bowel demonstrating pneumobilia suggesting strangulation of the small bowel with possible perforation. Subcutaneous gas which may represent superimposed infection. Status post exploratory laparotomy, repair of strangulated parastomal hernia small bowel resection with ileostomy, repair of incisional hernia performed on 01/06/2022 #2. Sepsis with pseudomonal bacteremia #3. Acute hypoxic respiratory failure secondary to acute sepsis requiring prolonged intubation, successfully weaned and extubated on 01/16/2022 #4. Acute lactic acidosis resolved #5. Acute kidney injury, improving #6. Hyperkalemia related to acute kidney injury improved #7. A. fib with RVR, currently sinus mechanism, has been started on Eliquis not back on heparin related to inability to take oral medications #8. Hyponatremia related to free water deficit, currently on D5W at 100 ML per hour, and this is improving #9. Diabetes mellitus type 2 #10. Hyperlipidemia #11. BPH #12. Coronary artery disease with previous stent placement #13. History of chronic tobacco dependence in remission #14. Anemia of chronic disease #15. Thrombocytopenia, mild, improved related to sepsis #16. General medical debility related to prolonged ventilator support and critical illness polyneuropathy #17. Dysphagia #18. Deep tissue injury, decubitus ulcers on sacrum Plan: Maintain aspiration precautions Continue antibiotics per ID service recommendations Lasix discontinued, patient is quite dry Continue D5w at 100 follow up electrolytes and renal profile tomorrow Wean FiO2 to keep O2 sats at or above 90% Generally patient is quite debilitated he failed a swallow eval He will be started on PPN and possible PEG tube placement if agrees Consult RD, consult wound services Physical therapy evaluation and treatment We'll continue to follow his clinical course I performed a history & physical examination of the patient and discussed their management with my nurse practitioner, Amber Schulte. I reviewed the nurse practitioner's note and agree with the documented findings and plan of care. Lung sounds are positive for diminished breath sounds throughout the lung torre. The findings and the impression was discussed with the patient. I at test to the documentation by the nurse practitioner. Time with Patient: Less than 30
--- NOTE | 2022-01-21 11:04 | P.PN ---
Subjective Principal diagnosis: Patient is a 72-year-old male with history of bladder cancer status post cystectomy and ileal loop urostomy, he was admitted to the hospital with abdominal pain and found to have a parastomal hernia with incarceration and bowel necrosis. Patient was taken to surgery on 01/06/2022 and had explorative laparotomy with repair of strangulated parastomal hernia and small bowel resection with ileostomy and repair of incisional hernia. Patient is seen for follow-up for acute kidney injury, mostly ATN secondary to hypotension and sepsis as well as an obstructive component. Renal function has been improving. Patient has had good output from his urostomy. Patient has been transferred out of the ICU. He remains quite weak though. Patient is also maintained on D5W for severe hyponatremia. He has not been ea ting much. Objective - Vital Signs Vital signs: Vital Signs Temp 98.1 F 01/21/22 08:00 Pulse 89 01/21/22 08:00 Resp 20 01/21/22 08:00 BP 136/64 01/21/22 08:00 Pulse Ox 96 01/21/22 08:00 Intake & Output 01/20/22 01/21/22 01/21/22 18:59 06:59 18:59 Intake Total 75.5 162.79 Output Total 1470 1700 Balance -1470 -1624.5 162.79 Weight 96.3 kg Intake: Intake, IV Titration 75.5 162.79 Amount Heparin Sod,Pork in 0.45% 75.5 162.79 NaCl 25,000 unit In 0.45 % NaCl 1 250ml.bag @ 10. 384 UNITS/KG/HR 10 mls/hr IV .Q24H [facility] Rx#: [id number] Output: Urine 1450 1675 Stool 20 25 Other: Voiding Method Ileal Conduit (Right) Ileal Conduit (Right) Ileal Conduit (Right) ABP, PAP, CO, CI - Last Documented Arterial Blood Pressure 108/42 - Exam Patient is awake. He is comfortable. His profoundly weak. He does respond to simple questions. Examination of the heart S1 and S2 Examination lungs bilateral breath sounds are heard Abdomen is soft nontender. Urostomy and ileostomy is intact. Examination of lower extremities shows no significant edema. 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 - Labs CBC & Chem 7: 01/21/22 09:10 01/21/22 09:10 Labs: Abnormal Lab Results - Last 24 Hours (Table) 01/20/22 01/20/22 01/20/22 Range/Units 11:54 16:54 17:47 RBC (4.30-5.90) m/uL Hgb (13.0-17.5) gm/dL Hct (39.0-53.0) % MCV (80.0-100.0) fL Lymphocytes # (1.0-4.8) k/uL PT (9.0-12.0) sec INR (<1.2) APTT 35.3 H (22.0-30.0) sec Sodium (137-145) mmol/L Potassium (3.5-5.1) mmol/L Chloride (98-107) mmol/L Carbon Dioxide (22-30) mmol/L BUN (9-20) mg/dL Creatinine (0.66-1.25) mg/dL POC Glucose (mg/dL) 209 H 168 H (75-99) mg/dL Calcium (8.4-10.2) mg/dL 01/21/22 01/21/22 01/21/22 Range/Units 00:01 01:34 06:14 RBC (4.30-5.90) m/uL Hgb (13.0-17.5) gm/dL Hct (39.0-53.0) % MCV (80.0-100.0) fL Lymphocytes # (1.0-4.8) k/uL PT (9.0-12.0) sec INR (<1.2) APTT 48.5 H (22.0-30.0) sec Sodium (137-145) mmol/L Potassium (3.5-5.1) mmol/L Chloride (98-107) mmol/L Carbon Dioxide (22-30) mmol/L BUN (9-20) mg/dL Creatinine (0.66-1.25) mg/dL POC Glucose (mg/dL) 146 H 107 H (75-99) mg/dL Calcium (8.4-10.2) mg/dL 01/21/22 01/21/22 01/21/22 Range/Units 09:10 09:10 09:10 RBC 2.33 L (4.30-5.90) m/uL Hgb 7.3 L (13.0-17.5) gm/dL Hct 23.4 L (39.0-53.0) % MCV 100.4 H (80.0-100.0) fL Lymphocytes # 0.3 L (1.0-4.8) k/uL PT 12.6 H (9.0-12.0) sec INR 1.2 H (<1.2) APTT (22.0-30.0) sec Sodium 147 H (137-145) mmol/L Potassium 2.8 L (3.5-5.1) mmol/L Chloride 114 H (98-107) mmol/L Carbon Dioxide 31 H (22-30) mmol/L BUN 71 H (9-20) mg/dL Creatinine 1.71 H (0.66-1.25) mg/dL POC Glucose (mg/dL) (75-99) mg/dL Calcium 8.0 L (8.4-10.2) mg/dL Microbiology - Last 24 Hours (Table) 01/18/22 14:15 Gram Stain - Final Abdomen Wound Culture - Final Pseudomonas aeruginosa Vesta albicans Assessment and Plan Assessment: 1. Acute kidney injury, ATN nonoliguric secondary to hypotension and sepsis as well as an obstructive, component. CT of the abdomen on initial admission showed the parastomal hernia with obstruction and mild bilateral hydronephrosis and hydroureter. Currently urine output is good urine ostomy seems to be working fairly well. Continue with IV fluids 2. Incarcerated parastomal hernia and necrotic bowel status post emergency resection of the bowel with ileostomy and repair of strangulated parastomal hernia. 3. Hypotension from sepsis maintained on antibiotics and levo fed has been discontinued 4. History of bladder cancer status post cystectomy and ileal loop urostomy 5. Hyperkalemia associated with acute kidney injury and metabolic acidosis, resolved 6. Metabolic acidosis associated with acute kidney injury and hypotension, status post IV bicarb 7. Pseudomonas bacteremia, source is likely abdominal. Urine culture is negative 8. Profound weakness. Swallow eval to be performed again today. Plan: Continue D5W. Agree with starting PPN sodium will need to be adjusted for hypernatremia. Continue with IV antibiotics Replace potassium
[2022-01-21 11:48] LABS: Glucose,Whole Blood 80 mg/dL (75-99)
[2022-01-21] MEDS: POTASSIUM CHLORIDE 20 MEQ in WATER FOR INJECTION 1 100ML.BAG IVPB SCH ×3 (11:48→16:22)
--- NOTE | 2022-01-21 11:55 | P.PN ---
Subjective Progress Note Date: 01/21/22 HISTORY OF PRESENT ILLNESS: This is a 72-year-old gentleman with history of coronary artery disease with previous PCI, diabetes mellitus, hypertension and hyperlipidemia and also hi story of bladder cancer with urostomy. Patient is status post surgery for perforated viscus. Patient is also intubated. His echocardiogram showed an ejection fraction about 35-40% with global hypokinesia without any significant valvular abnormalities. Patient had an episode of A. fib but converted back to sinus rhythm. In the rhythm appears to be mostly is a sinus rhythm with APCs are multifocal atrial rhythm at this time. 01/14/2022: This patient is status post surgery for possible perforated viscus. Patient also has sepsis. We're following patient because of intermittent atrial fibrillation. Patient is currently on IV Cardizem 5 mg daily is maintaining sinus rhythm. His her multiple medications including antibiotics. Still on mechanical ventilator. His echo [place] showed ejection fraction 35-40%. We'll continue current management. We'll follow. 01/15/2022: This patient with history of coronary artery disease, diabetes, hypertension and hypercholesterolemia who was admitted to the abdominal pain and was noted. Strength ablation of the small bowel in the parastomal hernia. Patient underwent surgical procedure including small bowel resection and ileostomy. Patient is also being treated for sepsis and bacteremia and also hypertension. patient had episodes of atrial fibrillation and was treated with amiodarone. Patient is on IV Cardizem and maintaining sinus rhythm. Patient had thrombocytopenia and also anemia. Platelet count is improving and seemed to be around 1 20,000. However, his hemoglobin dropped to 7.8. Patient needs to go on and decortication therapy because of his coronary artery disease and impaired LV function. He was okay with the surgical team, patient to be constricted for Eliquis 5 mg by mouth twice a day. However, his platelet counts and hemoglobin 8 followed closely. 01/16/2022: This patient is extubated today. Is awake but seemed to be weak and frail. Patient is afebrile. So far his maintaining sinus rhythm. He is on a nticoagulation therapy is also on IV Cardizem. We'll switch to by mouth Cardizem. He is also on amiodarone 400 mg by mouth twice a day. We will taper the amiodarone to 200 mg by mouth twice a day from tomorrow. Chest x-ray shows bilateral infiltrates. Apparently blood cultures have been negative. His hemoglobin dropped to 6.8. Surgical team is following. Plan is to repeat hemoglobin in the afternoon. If hemoglobin evidence for the, may have to discontinue anticoagulation. Further examination depend upon clinical course. 01/17/2022: Patient remained extubated. He seemed to be more alert, maintaining oxygen saturation. Chest x-ray shows stable findings. Patient seemed to maintaining sinus rhythm. He is on by mouth Cardizem and amiodarone. I will cut back the dose of amiodarone and tomorrow to 200 mg by mouth twice a day. Potassium is low which is being corrected. He is also on anti-cognition therapy. Hemoglobin is maintaining about 6.8-7 g range. Rest of the management as for intensivists 01/18: Patient has been transferred out of the intensive care unit and seen today on the cardiac stepdown unit. Patient has transition from atrial fibrillation to sinus rhythm. He has been started on anticoagulation with eliquis. He is currently on amiodarone 400 mg twice daily and will maintain this dose for another 24 hours 01/19: cardiac monitor technician is atrial fibrillation in the low 100s, blood pressure 97/53. Patient is currently on amiodarone, Cardizem, IV Lasix managed by nephrology. Pulmonary started patient on midodrine yesterday. No adjustment in medications will be made by us today to marginal blood pressure. 01/20/2022 Patient examined this morning at the bedside. Patient is lethargic. Per nursing, patient has been like this for the past few days. She also reports patient is unable to take any of his oral medications. Patient is currently in afib with heart rates around 110-120. Blood pressure 102/62. 01/21/2022 Patient examined this morning at the bedside. Patient remains lethargic. Patient underwent swallow evaluation yesterday in which he failed. He remains nothing by mouth. Patient remains on IV heparin due to his nothing by mouth status. Telemetry reveals atrial fibrillation with controlled ventricular rates. PHYSICAL EXAM: VITAL SIGNS: Reviewed. GENERAL: Well-developed in no acute distress. Lethargic. NECK: Supple. No JVD or thyromegaly LUNGS: Respirations even and unlabored. Lungs diminished auscultation bilaterally. HEART: Irregular rate and rhythm. S1 and S2 heard. EXTREMITIES: Normal range of motion. No clubbing or cyanosis. Peripheral pulses intact. No lower extremity edema ASSESSMENT: Atrial fibrillation with RVR, paroxysmal atrial fibrillation Strangulated parastomal hernia and incisional hernia status post exploratory laparotomy, Repair of strangulated parastomal hernia, Small bowel resection with ileostomy and Repair of incisional hernia Abdominal incision infection Sepsis with septic shock Acute kidney injury Chronic kidney disease Hypernatremia Septic shock secondary to Pseudomonas Bacteremia PLAN: Patient currently lethargic and unable to take any oral medications Continue IV heparin secondary to nothing by mouth status If patients heart rates become uncontrolled, may initiate IV Cardizem drip (despite low EF, Dr Treadwell aware) Resume oral medications when able Continue telemetry monitoring Continue IV lasix per nephrology Further recommendations pending patient course Nurse practitioner note has been reviewed by physician. Signing provider agrees with the documented findings, assessment, and plan of care. Objective - Vital Signs Vital signs: Vital Signs Temp 97.7 F 01/21/22 11:36 Pulse 74 01/21/22 11:36 Resp 18 01/21/22 11:36 BP 123/65 01/21/22 11:36 Pulse Ox 95 01/21/22 11:36 Intake & Output 01/20/22 01/21/22 01/21/22 18:59 06:59 18:59 Intake Total 75.5 162.79 Output Total 1470 1700 575 Balance -1470 -1624.5 -412.21 Weight 96.3 kg Intake: Intake, IV Titration 75.5 162.79 Amount Heparin Sod,Pork in 0.45% 75.5 162.79 NaCl 25,000 unit In 0.45 % NaCl 1 250ml.bag @ 10. 384 UNITS/KG/HR 10 mls/hr IV .Q24H [facility] Rx#: [id number] Output: Urine 1450 1675 575 Stool 20 25 Other: Voiding Method Ileal Conduit (Right) Ileal Conduit (Right) Ileal Conduit (Right) ABP, PAP, CO, CI - Last Documented Arterial Blood Pressure 108/42 - Labs CBC & Chem 7: 01/21/22 09:10 01/21/22 09:10 Labs: Abnormal Lab Results - Last 24 Hours (Table) 01/20/22 01/20/22 01/20/22 Range/Units 11:54 16:54 17:47 RBC (4.30-5.90) m/uL Hgb (13.0-17.5) gm/dL Hct (39.0-53.0) % MCV (80.0-100.0) fL Lymphocytes # (1.0-4.8) k/uL PT (9.0-12.0) sec INR (<1.2) APTT 35.3 H (22.0-30.0) sec Sodium (137-145) mmol/L Potassium (3.5-5.1) mmol/L Chloride (98-107) mmol/L Carbon Dioxide (22-30) mmol/L BUN (9-20) mg/dL Creatinine (0.66-1.25) mg/dL POC Glucose (mg/dL) 209 H 168 H (75-99) mg/dL Calcium (8.4-10.2) mg/dL 01/21/22 01/21/22 01/21/22 Range/Units 00:01 01:34 06:14 RBC (4.30-5.90) m/uL Hgb (13.0-17.5) gm/dL Hct (39.0-53.0) % MCV (80.0-100.0) fL Lymphocytes # (1.0-4.8) k/uL PT (9.0-12.0) sec INR (<1.2) APTT 48.5 H (22.0-30.0) sec Sodium (137-145) mmol/L Potassium (3.5-5.1) mmol/L Chloride (98-107) mmol/L Carbon Dioxide (22-30) mmol/L BUN (9-20) mg/dL Creatinine (0.66-1.25) mg/dL POC Glucose (mg/dL) 146 H 107 H (75-99) mg/dL Calcium (8.4-10.2) mg/dL 01/21/22 01/21/22 01/21/22 Range/Units 09:10 09:10 09:10 RBC 2.33 L (4.30-5.90) m/uL Hgb 7.3 L (13.0-17.5) gm/dL Hct 23.4 L (39.0-53.0) % MCV 100.4 H (80.0-100.0) fL Lymphocytes # 0.3 L (1.0-4.8) k/uL PT 12.6 H (9.0-12.0) sec INR 1.2 H (<1.2) APTT (22.0-30.0) sec Sodium 147 H (137-145) mmol/L Potassium 2.8 L (3.5-5.1) mmol/L Chloride 114 H (98-107) mmol/L Carbon Dioxide 31 H (22-30) mmol/L BUN 71 H (9-20) mg/dL Creatinine 1.71 H (0.66-1.25) mg/dL POC Glucose (mg/dL) (75-99) mg/dL Calcium 8.0 L (8.4-10.2) mg/dL Microbiology - Last 24 Hours (Table) 01/18/22 14:15 Gram Stain - Final Abdomen Wound Culture - Final Pseudomonas aeruginosa Vesta albicans
[2022-01-21] MEDS: DILTIAZEM 125 MG in SODIUM CHLORIDE 0.9% 100 ML IV SCH (12:19)
--- NOTE | 2022-01-21 14:42 | CT ---
EXAMINATION TYPE: CT brain wo con DATE OF EXAM: 01/21/2022 COMPARISON: None available HISTORY: Altered mental status CT DLP: 1190.4 mGycm Automated exposure control for dose reduction was used. TECHNIQUE: Multiple CT scan of the brain without IV contrast administration. FINDINGS: Generalized brain volume loss changes, likely age-related. Mild bilateral cerebral white matter chron ic microvascular ischemic changes. Scattered arterial atherosclerotic calcifications. No acute intracranial hemorrhage or gross acute cortical infarct. No midline shift or herniation. Unr emarkable basal cisterns, sella and CP angles. No gross space-occupying lesion, vasogenic edema or ma ss effect. No gross orbital abnormality. Clear visualized paranasal sinuses. Opacified mastoid air cells, please correlate clinically for mastoiditis. Unremarkable calvarial bones. IMPRESSION: No acute intracranial hemorrhage or gross acute cortical infarct. No space-occupying lesion by this n onenhanced CT scan. Brain volume loss changes and chronic microvascular ischemic changes. Opacified mastoid air cells, pl ease correlate clinically for mastoiditis.
--- NOTE | 2022-01-21 14:58 | P.PN ---
Subjective Progress Note Date: 01/21/22 Xavier Langford is a 72 yo M with PMH of bladder cancer s/p cystectomy and urostomy, CAD, T2DM, who presented to the ED complaining of worsening abdominal pain and distention. CT on presentation showed large parastomal hernia obstructing his ileal conduit and concern for strangulation and possible perforation. Initial WBC 12.2. Hemoglobin 10.4. Sodium 138. Potassium 4.8. BUN 47. Creatinine 3.17. Glucose 252. Plasma lactic acid 2.2, trop negative. Pt underwent exploratory laparotomy, repair of strangulated parastomal hernia, small bowel resection with ileostomy, repair of incisional hernia. Today his labs reflect drop in WBC to 2.6, Potassium 6.1, Cr 3.8. Blood cultures preliminary revealing gram-negative bacilli. 01/08/22 Tachycardic, heart rates in the 120s to 130s, tachypneic.Maintained on Zo syn, blood culture reporting pseudomonas aeruginosa . Urine culture pending. Currently afebrile. Maintaining O2 sats in the high 90s on 2 L nasal cannula.Maintained on IV fluid hydration, and Levophed. Good urine output. Creatinine decreased to 3.65. ABGs reflecting metabolic acidosis, bicarb drip initiated. Complains of abdominal pain, greater on the right. Blood sugars controlled on low-dose Levemir. 01/09/2022 Developed atrial fibrillation with RVR in addition to respiratory distress requiring intubation and antiarrhythmics last night. Currently on FiO2 40%/+8 of PEEP. Maintained on fentanyl, bicarb, diprovan, amiodarone, vasopressin and the Levophed drips. Telemetry currently sinus rhythm .Continues on Zosyn for Pseudomonas bacteremia. Urine cultures negative. Sputum culture pending. Multiple fluid boluses yesterday, chest x-ray this morning reporting possible pneumonia, CHF, interstitial lung disease. Afebrile, T-max 99.4, normal WBC. Hemoglobin 8.8, platelets 135. Creatinine trending down, 3.15,Magnesium 1.6, nephrology following. 01/10/22 Remains vent dependent, FiO2 40%/+8 peep. Chest x-ray reporting stable bilateral infiltrate and pleural effusion, possible CHF superimposed on background of chronic interstitial pulmonary fibrosis and COPD, possible un derlying pneumonia. Telemetry sinus rhythm. 2-D echo completed, results pending .Maintained on bicarb, fentanyl, vasopressin, Levophed, diprovan drips. Hemoglobin 8.6 Creatinine continues to improve down to 2.72. T-max 99.8, WBC 4.5. Continues on Zosyn. 01/13/2010 remains vent dependent, FiO2 40%/+6 of PEEP. Chest x-ray pending. Maintained on diprovan, Levophed drips. T-max 100.1. Pseudomonas bacteremia suspect related to the abdomen. Maintained on meropenem, fluconazole. Preliminary repeat blood cultures currently reporting no growth after 24 hours. BUN 73, creatinine 2.09. Received a dose of Lasix today-generalized edema. Continues on TPN, tube feeds. 01/14/2022 vent dependent, FiO2 40%/+6 of PEEP. Chest x-ray reporting slight improvement. Last night developed atrial fibrillation with RVR, placed on Cardizem drip. Currently on sedation holiday with diprovan temporarily off. Continues to require pressor support with Levophed. Maintained on TPN ,blood sugars elevated. T-max 100.3, WBC 11.4, repeat preliminary blood cultures reporting no growth after 48 hours. 01/15/2022 remains vent dependent with FiO2 40%/+6 of PEEP. Maintained on Cardizem, Levophed and Diprovan drips. Failed weaning trials yesterday. 01/16/2022 remained off of sedation 24 hours with good weaning parameters, extubated this morning.Levophed has been off early a.m.Maintaining O2 sats in the 90s on 6 L high flow nasal cannula. Audible loose congestion,weak cough,scopolamine patch added to med regimen. Chest x-ray reporting stable diffuse bilateral pleural parenchymal changes.telemetry sinus rhythm.Continues on Cardizem drip,oral amiodarone with Eliquis resumed.hemoglobin 6.7, no blood t ransfusion at this time with repeat hemoglobin this afternoon as per surgery. Sodium 146,BUN 114, creatinine 1.96;DDAVP and IV fluids adjusted to D5 /0.45 as per nephrology.continues on meropenem and fluconazole,repeat blood culture report no growth after 96 hours. 01/17/2022 extubated yesterday, maintaining O2 sats in the 90s on 4 L nasal cannula. Chest x-ray reporting stable diffuse bilateral infiltrates and pleural effusions. Tolerating clear liquids ,diet has been advanced to full liquids for lunch time as per surgery. Conversing with minimal shortness of breath weak nonproductive cough, attempting to clear throat. Renal function mildly worsened, BUN 106, creatinine 2.15. Sodium worsening up to 149, IV fluids of D5W increased. Receiving potassium supplements for potassium of 3.2. Maintained on Merrem and fluconazole. Afebrile, WBC 7.4 ,T-max 99.2. Hemoglobin 6.9, platelets 144. Telemetry sinus rhythm on oral amiodarone and Cardizem. Anticoagulated with Eliquis. 01/21/2022 maintained D5W, sodium 147. BUN 71, creatinine 1.71. Potassium 2.8, replacement in progress. Evaluated by speech therapy, failed swallow evaluation. Scheduled for PEG tube placement yesterday. Lethargic, following simple commands, conversing in whispers appropriately. Telemetry atrial fibril lation with controlled ventricular rate. Anticoagulated on heparin drip. Hemoglobin 7.3, platelets 152, INR 1.2. Maintaining O2 sats in the low 90s on 4 L nasal cannula. Afebrile, normal WBC. Continues on IV antibiotics for bacteremia as well as abdominal wound cultures with Pseudomonas aeruginosa. Objective - Vital Signs Vital signs: Vital Signs Temp 97.5 F L 01/21/22 04:00 Pulse 104 H 01/21/22 04:00 Resp 16 01/21/22 04:00 BP 117/56 01/21/22 04:00 Pulse Ox 91 L 01/21/22 07:30 Intake & Output 01/20/22 01/21/22 01/21/22 18:59 06:59 18:59 Intake Total 75.5 162.79 Output Total 1470 1700 Balance -1470 -1624.5 162.79 Intake: Intake, IV Titration 75.5 162.79 Amount Heparin Sod,Pork in 0.45% 75.5 162.79 NaCl 25,000 unit In 0.45 % NaCl 1 250ml.bag @ 10. 384 UNITS/KG/HR 10 mls/hr IV .Q24H [facility] Rx#: [id number] Output: Urine 1450 1675 Stool 20 25 Other: Voiding Method Ileal Conduit (Right) Ileal Conduit (Right) ABP, PAP, CO, CI - Last Documented Arterial Blood Pressure 108/42 - Exam General: Alert and oriented 2, sitting up in bed, conversing appropriately, weak Eyes: PERRL, EOMI, conjunctiva normal HENT: normocephalic, atraumatic Neck: supple, no JVD Lungs: normal respiratory effort, coarse rhonchi, fine bibasilar crackles ,no wheezes. CV: Irregular rate and rhythm, no murmur. Peripheral pulses 2+, positive edema with trace edema lower extremities Abdomen: Distended, soft, ileostomy and urostomy, abdominal surgical site , 2 open areas with yuliya removed, packed with gauze Skin: warm and dry. - Labs CBC & Chem 7: 01/21/22 09:10 01/21/22 09:10 Labs: Abnormal Lab Results - Last 24 Hours (Table) 01/20/22 01/20/22 01/20/22 Range/Units 11:54 16:54 17:47 RBC (4.30-5.90) m/uL Hgb (13.0-17.5) gm/dL Hct (39.0-53.0) % MCV (80.0-100.0) fL Lymphocytes # (1.0-4.8) k/uL PT (9.0-12.0) sec INR (<1.2) APTT 35.3 H (22.0-30.0) sec POC Glucose (mg/dL) 209 H 168 H (75-99) mg/dL 01/21/22 01/21/22 01/21/22 Range/Units 00:01 01:34 06:14 RBC (4.30-5.90) m/uL Hgb (13.0-17.5) gm/dL Hct (39.0-53.0) % MCV (80.0-100.0) fL Lymphocytes # (1.0-4.8) k/uL PT (9.0-12.0) sec INR (<1.2) APTT 48.5 H (22.0-30.0) sec POC Glucose (mg/dL) 146 H 107 H (75-99) mg/dL 01/21/22 01/21/22 Range/Units 09:10 09:10 RBC 2.33 L (4.30-5.90) m/uL Hgb 7.3 L (13.0-17.5) gm/dL Hct 23.4 L (39.0-53.0) % MCV 100.4 H (80.0-100.0) fL Lymphocytes # 0.3 L (1.0-4.8) k/uL PT 12.6 H (9.0-12.0) sec INR 1.2 H (<1.2) APTT (22.0-30.0) sec POC Glucose (mg/dL) (75-99) mg/dL Microbiology - Last 24 Hours (Table) 01/18/22 14:15 Gram Stain - Final Abdomen Wound Culture - Final Pseudomonas aeruginosa Vesta albicans Assessment and Plan Assessment: Septic shock secondary to Pseudomonas,repeat culture reported Proprionibacterium species bacteremia, abdominal cultures reporting Pseudomonas as well as blood cultures. Acute hypoxic respiratory failure secondary to the above,status post vent dependent. Hypotension, secondary to septic shock,status post pressor dependent Acute renal failure secondary to septic shock, hypotension hypernatremia Dysphagia,failed swallow evaluation anemia Atrial fibrillation with RVR, new onset-suspect related to septic shock and bacteremia, currently sinus rhythm Thrombocytopenia, HIT W/U in progress Hyperkalemia secondary to the above Labs acidosis secondary to septic shock with bacteremia Metabolic acidosis secondary to acute renal failure, status post bicarb drip Incarcerated hernia status post colostomy creation Diabetes mellitus type 2 History of bladder cancer with previous urostomy Plan: Continue on current medication regime ,monitoring and symptomatic treatment. Potassium replacement, magnesium level ordered. Recheck potassium level at 1800. Wound care. Scheduled for PEG tube placement . Strict aspiration precautions.hypernatremic-maintain D5W. Antibiotics as per ID. Prognosis guarded given multiple complex medical issues. The impression and plan of care has been dictated as directed. : I performed a history and examination of this patient, discussed the same with the dictator. I agree with the dictator's note ,documented as a scribe. Any additional findings or plans will be noted.
--- NOTE | 2022-01-21 15:25 | P.PN ---
Subjective Progress Note Date: 01/21/22 CHIEF COMPLAINT: Strangulated parastomal hernia HISTORY OF PRESENT ILLNESS: Patient is status post Exploratory laparotomy, Repair of strangulated parastomal hernia, Small bowel resection with ileostomy and Repair of incisional hernia on 01/06/22. Patient is currently on a regular medical floor. He is lethargic. Per nursing staff he is not eating. Patient failed swallow eval. And they are unable to get him to take oral medications. His ostomy is functioning. Afebrile. WBC is 5 he will some 0.3 sodium 147 potassium 2.8 creatinine 1.7 Patient seen and examined with Dr. allen PHYSICAL EXAM: VITAL SIGNS: Reviewed. GENERAL: Well-developed in no acute distress. HEENT: No sclera icterus. Extraocular movements grossly intact. Moist buccal mucosa. Head is atraumatic, normocephalic. ABDOMEN: Soft. Abdominal incision site clean dry and intact. 2 areas are open with gauze placed. Ileostomy liquidy brown stool. Urostomy stoma pink. Urine is clear NEUROLOGIC: Lethargic ASSESSMENT: 1. Strangulated parastomal hernia and incisional hernia status post Exploratory laparotomy, Repair of strangulated parastomal hernia, Small bowel resection with ileostomy and Repair of incisional hernia 2. Abdominal incision infection 3. History of bladder cancer with urostomy 4. Acute kidney injury 5. Sepsis and septic shock 6. Bacteremia with Pseudomonas 7. New onset of A. fib 8. Severe protein calorie malnutrition PLAN: -Patient scheduled for EGD with PEG tube placement on , 01/23/[address] allen -Continue local wound care -Continue supportive care -Continue antibiotics per ID Physician [employer] note has been reviewed by physician. Signing provider agrees with the documented findings, assessment, and plan of care. Objective - Vital Signs Vital signs: Vital Signs Temp 97.7 F 01/21/22 11:36 Pulse 74 01/21/22 13:30 Resp 18 01/21/22 13:30 BP 123/65 01/21/22 11:36 Pulse Ox 95 01/21/22 11:36 Intake & Output 01/20/22 01/21/22 01/21/22 18:59 06:59 18:59 Intake Total 75.5 162.79 Output Total 1470 1700 575 Balance -1470 -1624.5 -412.21 Weight 96.3 kg Intake: Intake, IV Titration 75.5 162.79 Amount Heparin Sod,Pork in 0.45% 75.5 162.79 NaCl 25,000 unit In 0.45 % NaCl 1 250ml.bag @ 10. 384 UNITS/KG/HR 10 mls/hr IV .Q24H [facility] Rx#: [id number] Output: Urine 1450 1675 575 Stool 20 25 Other: Voiding Method Ileal Conduit (Right) Ileal Conduit (Right) Ileal Conduit (Right) ABP, PAP, CO, CI - Last Documented Arterial Blood Pressure 108/42 - Labs CBC & Chem 7: 01/21/22 09:10 01/21/22 09:10 Labs: Abnormal Lab Results - Last 24 Hours (Table) 01/20/22 01/20/22 01/21/22 Range/Units 16:54 17:47 00:01 RBC (4.30-5.90) m/uL Hgb (13.0-17.5) gm/dL Hct (39.0-53.0) % MCV (80.0-100.0) fL Lymphocytes # (1.0-4.8) k/uL PT (9.0-12.0) sec INR (<1.2) APTT 35.3 H (22.0-30.0) sec Sodium (137-145) mmol/L Potassium (3.5-5.1) mmol/L Chloride (98-107) mmol/L Carbon Dioxide (22-30) mmol/L BUN (9-20) mg/dL Creatinine (0.66-1.25) mg/dL POC Glucose (mg/dL) 168 H 146 H (75-99) mg/dL Calcium (8.4-10.2) mg/dL 01/21/22 01/21/22 01/21/22 Range/Units 01:34 06:14 09:10 RBC 2.33 L (4.30-5.90) m/uL Hgb 7.3 L (13.0-17.5) gm/dL Hct 23.4 L (39.0-53.0) % MCV 100.4 H (80.0-100.0) fL Lymphocytes # 0.3 L (1.0-4.8) k/uL PT (9.0-12.0) sec INR (<1.2) APTT 48.5 H (22.0-30.0) sec Sodium (137-145) mmol/L Potassium (3.5-5.1) mmol/L Chloride (98-107) mmol/L Carbon Dioxide (22-30) mmol/L BUN (9-20) mg/dL Creatinine (0.66-1.25) mg/dL POC Glucose (mg/dL) 107 H (75-99) mg/dL Calcium (8.4-10.2) mg/dL 01/21/22 01/21/22 Range/Units 09:10 09:10 RBC (4.30-5.90) m/uL Hgb (13.0-17.5) gm/dL Hct (39.0-53.0) % MCV (80.0-100.0) fL Lymphocytes # (1.0-4.8) k/uL PT 12.6 H (9.0-12.0) sec INR 1.2 H (<1.2) APTT (22.0-30.0) sec Sodium 147 H (137-145) mmol/L Potassium 2.8 L (3.5-5.1) mmol/L Chloride 114 H (98-107) mmol/L Carbon Dioxide 31 H (22-30) mmol/L BUN 71 H (9-20) mg/dL Creatinine 1.71 H (0.66-1.25) mg/dL POC Glucose (mg/dL) (75-99) mg/dL Calcium 8.0 L (8.4-10.2) mg/dL Microbiology - Last 24 Hours (Table) 01/18/22 14:15 Gram Stain - Final Abdomen Wound Culture - Final Pseudomonas aeruginosa Vesta albicans
[2022-01-21] MEDS: FLUCONAZOLE IN NACL,ISO-OSM 100 MG in SALINE 1 50ML.BAG IVPB SCH (15:26)
[2022-01-21 18:10] LABS: Glucose,Whole Blood 90 mg/dL (75-99)
--- NOTE | 2022-01-21 22:03 | P.PN ---
Subjective Progress Note Date: 01/20/22 Principal diagnosis: Pseudomonas bacteremia Patient is 72-year-old male, presented to hospital with abdominal pain has been diagnosed with strangulated parastomal hernia, in this patient was status post exploratory laparotomy, small bowel resection with ileostomy and re pair of incisional hernia patient was noticed to have a positive blood culture has been finalized with pseudomonas aeruginosa. Patient was noticed to have a abdominal incision dehiscence of the culture was repeated on the weekend On today's evaluation that is 01/20/2022, the patient remains to be afebrile, patient remains to be lethargic and unable to provide any history, the patient is breathing comfortably on nasal cannula oxygen, the patient did have output in his ileostomy, Objective - Vital Signs Vital signs: Vital Signs Temp 97.3 F L 01/20/22 09:00 Pulse 90 01/20/22 09:00 Resp 18 01/20/22 09:00 BP 105/66 01/20/22 09:00 Pulse Ox 92 L 01/20/22 09:00 Intake & Output 01/19/22 01/20/22 01/20/22 18:59 06:59 18:59 Intake Total 0 0 Output Total 1000 2675 Balance -1000 -2675 Intake: Oral 0 0 Output: Urine 1000 2550 Suprapubic 1000 Stool 125 Other: Voiding Method Ileal Conduit (Right) Ileal Conduit (Right) ABP, PAP, CO, CI - Last Documented Arterial Blood Pressure 108/42 - Exam GENERAL DESCRIPTION: An elderly male lying in bed in no distress RESPIRATORY SYSTEM: Unlabored breathing , decreased breath sounds at bases HEART: S1 S2 regular rate and rhythm , ABDOMEN: Soft , no tenderness, midline abdominal wound is currently covered EXTREMITIES: No edema feet - Labs CBC & Chem 7: 01/21/22 09:10 01/21/22 17:54 Labs: Abnormal Lab Results - Last 24 Hours (Table) 01/19/22 01/19/22 01/19/22 Range/Units 08:47 08:47 12:23 RBC 2.45 L (4.30-5.90) m/uL Hgb 7.4 L (13.0-17.5) gm/dL Hct 25.2 L (39.0-53.0) % MCV 103.0 H (80.0-100.0) fL MCHC 29.2 L (31.0-37.0) g/dL RDW 15.9 H (11.5-15.5) % Lymphocytes # 0.3 L (1.0-4.8) k/uL Sodium 150 H (137-145) mmol/L Potassium 3.4 L (3.5-5.1) mmol/L Chloride 119 H (98-107) mmol/L BUN 88 H (9-20) mg/dL Creatinine 1.81 H (0.66-1.25) mg/dL Glucose (74-99) mg/dL POC Glucose (mg/dL) 155 H (75-99) mg/dL Calcium 8.2 L (8.4-10.2) mg/dL C-Reactive Protein 14.8 H (<1.0) mg/dL 01/19/22 01/20/22 01/20/22 Range/Units 17:06 00:04 06:12 RBC (4.30-5.90) m/uL Hgb (13.0-17.5) gm/dL Hct (39.0-53.0) % MCV (80.0-100.0) fL MCHC (31.0-37.0) g/dL RDW (11.5-15.5) % Lymphocytes # (1.0-4.8) k/uL Sodium (137-145) mmol/L Potassium (3.5-5.1) mmol/L Chloride (98-107) mmol/L BUN (9-20) mg/dL Creatinine (0.66-1.25) mg/dL Glucose (74-99) mg/dL POC Glucose (mg/dL) 230 H 282 H 292 H (75-99) mg/dL Calcium (8.4-10.2) mg/dL C-Reactive Protein (<1.0) mg/dL 01/20/22 01/20/22 Range/Units 07:42 07:42 RBC 2.52 L (4.30-5.90) m/uL Hgb 7.5 L (13.0-17.5) gm/dL Hct 26.2 L (39.0-53.0) % MCV 104.1 H (80.0-100.0) fL MCHC 28.6 L (31.0-37.0) g/dL RDW 16.0 H (11.5-15.5) % Lymphocytes # 0.3 L (1.0-4.8) k/uL Sodium 147 H (137-145) mmol/L Potassium (3.5-5.1) mmol/L Chloride 116 H (98-107) mmol/L BUN 86 H (9-20) mg/dL Creatinine 1.86 H (0.66-1.25) mg/dL Glucose 266 H (74-99) mg/dL POC Glucose (mg/dL) (75-99) mg/dL Calcium 8.2 L (8.4-10.2) mg/dL C-Reactive Protein (<1.0) mg/dL Microbiology - Last 24 Hours (Table) 01/18/22 14:15 Gram Stain - Preliminary Abdomen Wound Culture - Preliminary Gram Neg Bacilli Vesta albicans Assessment and Plan (1) Bacteremia Current Visit: Yes Status: Acute Code(s): R78.81 - BACTEREMIA SNOMED Code(s): 0070579 Plan: 1-Patient with pseudomonas bacteremia source is likely abdominal and this patient presented to the hospital with incarcerated hernia status post small bowel resection and ileostomy and repair of the hernia patient did have worsening of his respiratory status requiring intubation, patient pseudomonas with intermediate sensitivity to Zosyn and cefepime,repeat blood culture did grew Propionibacterium for the patient is currently covered with the meropenem , patient now with abdominal wound/incision dehiscence local culture has been obtained which are currently pending, patient is currently being treated daptomycin along with meropenem and Diflucan and continue supportive care Time with Patient: Less than 30
--- NOTE | 2022-01-21 22:04 | P.PN ---
Subjective Progress Note Date: 01/21/22 Principal diagnosis: Pseudomonas bacteremia Patient is 72-year-old male, presented to hospital with abdominal pain has been diagnosed with strangulated parastomal hernia, in this patient was status post exploratory laparotomy, small bowel resection with ileostomy and re pair of incisional hernia patient was noticed to have a positive blood culture has been finalized with pseudomonas aeruginosa. Patient was noticed to have a abdominal incision dehiscence of the culture was repeated on the weekend On today's evaluation that is 01/21/2022, the patient continues to be afebrile, patient remains to be lethargic and unable to provide any history, the patient however is breathing comfortably on nasal cannula oxygen, no vomiting has been requested the nursing staff and the patient did have output in his ileostomy, Objective - Vital Signs Vital signs: Vital Signs Temp 97.6 F 01/21/22 15:30 Pulse 89 01/21/22 15:30 Resp 16 01/21/22 15:30 BP 104/47 01/21/22 15:30 Pulse Ox 91 L 01/21/22 15:30 Intake & Output 01/21/22 01/21/22 01/22/22 06:59 18:59 06:59 Intake Total 75.5 162.79 Output Total 1700 900 Balance -1624.5 -737.21 Weight 96.3 kg Intake: Intake, IV Titration 75.5 162.79 Amount Heparin Sod,Pork in 0.45% 75.5 162.79 NaCl 25,000 unit In 0.45 % NaCl 1 250ml.bag @ 10. 384 UNITS/KG/HR 10 mls/hr IV .Q24H [facility] Rx#: [id number] Oral 0 Output: Urine 1675 900 Stool 25 Other: Voiding Method Ileal Conduit (Right) Ileal Conduit (Right) ABP, PAP, CO, CI - Last Documented Arterial Blood Pressure 108/42 - Labs CBC & Chem 7: 01/21/22 09:10 01/21/22 17:54 Labs: Abnormal Lab Results - Last 24 Hours (Table) 01/21/22 01/21/22 01/21/22 Range/Units 00:01 01:34 06:14 RBC (4.30-5.90) m/uL Hgb (13.0-17.5) gm/dL Hct (39.0-53.0) % MCV (80.0-100.0) fL Lymphocytes # (1.0-4.8) k/uL PT (9.0-12.0) sec INR (<1.2) APTT 48.5 H (22.0-30.0) sec Sodium (137-145) mmol/L Potassium (3.5-5.1) mmol/L Chloride (98-107) mmol/L Carbon Dioxide (22-30) mmol/L BUN (9-20) mg/dL Creatinine (0.66-1.25) mg/dL POC Glucose (mg/dL) 146 H 107 H (75-99) mg/dL Calcium (8.4-10.2) mg/dL 01/21/22 01/21/22 01/21/22 Range/Units 09:10 09:10 09:10 RBC 2.33 L (4.30-5.90) m/uL Hgb 7.3 L (13.0-17.5) gm/dL Hct 23.4 L (39.0-53.0) % MCV 100.4 H (80.0-100.0) fL Lymphocytes # 0.3 L (1.0-4.8) k/uL PT 12.6 H (9.0-12.0) sec INR 1.2 H (<1.2) APTT (22.0-30.0) sec Sodium 147 H (137-145) mmol/L Potassium 2.8 L (3.5-5.1) mmol/L Chloride 114 H (98-107) mmol/L Carbon Dioxide 31 H (22-30) mmol/L BUN 71 H (9-20) mg/dL Creatinine 1.71 H (0.66-1.25) mg/dL POC Glucose (mg/dL) (75-99) mg/dL Calcium 8.0 L (8.4-10.2) mg/dL Microbiology - Last 24 Hours (Table) 01/18/22 14:15 Gram Stain - Final Abdomen Wound Culture - Final Pseudomonas aeruginosa Vesta albicans Assessment and Plan (1) Bacteremia Current Visit: Yes Status: Acute Code(s): R78.81 - BACTEREMIA SNOMED Code(s): 0147192 Plan: 1-Patient with pseudomonas bacteremia source is likely abdominal and this patient presented to the hospital with incarcerated hernia status post small bowel resection and ileostomy and repair of the hernia patient did have worsening of his respiratory status requiring intubation patient subsequently has been extubated, patient pseudomonas with intermediate sensitivity to Zosyn and cefepime,repeat blood culture did grew Propionibacterium the patient also have abdominal wound/incision dehiscence local culture has been obtained which are currently came back positive for Pseudomonas aeruginosa and Vesta, patient is currently being treated daptomycin along with meropenem and Diflucan and continue supportive care Time with Patient: Less than 30
[2022-01-21 23:59] LABS: Glucose,Whole Blood 162 mg/dL (75-99)
[2022-01-22 00:10] LABS: ABG Base Excess 1.4 mmol/L; ABG HCO3 30 mmol/L (21-25); ABG Oxygen Saturation 88.3 % (94-97); ABG PO2 70 mmHg (83-108); ABG TCO2 33 mmol/L (19-24); Allen Test Performed? Yes
[2022-01-22] MEDS ORDERED: propofoL 100 ML IV ONE (00:17)
[2022-01-22 00:19] LABS: ABG PH 7.15 (7.35-7.45)
[2022-01-22 00:20] LABS: ABG PCO2 86 mmHg (35-45)
[2022-01-22 00:28] LABS: Glucose,Whole Blood 171 mg/dL (75-99)
[2022-01-22] MEDS ORDERED: NOREPINEPHRIN 4 MG-0.9% NS PMX 4 MG/250 ML ML IV ONE (00:42)
[2022-01-22] MEDS ORDERED: SODIUM BICARB 8.4% 50 ML SYR (1 MEQ/ML) ONE (00:43)
--- NOTE | 2022-01-22 00:44 | XR ---
EXAMINATION TYPE: XR chest 1V portable DATE OF EXAM: 01/22/2022 COMPARISON: 01/17/2022 01/20/2022 HISTORY: Short of breath TECHNIQUE: FINDINGS: Heart is enlarged. There is pulmonary vascular congestion. There is a large right pleural e ffusion. There is interstitial and airspace pulmonary edema. There are chest leads. There is right bonner bclavian catheter with the tip overlying the right atrium. IMPRESSION: Congestive heart failure with large right pleural effusion. There is smaller left pleural effusion. P leural fluid increased compared to last exam. Heart failure unchanged.
[2022-01-22] MEDS ORDERED: CISATRACURIUM 2 MG/ML 5 ML VIAL IV ONE (01:12)
[2022-01-22] MEDS ORDERED: NOREPINEPHRINE 4 MG in SODIUM CHLORIDE 0.9% 250 ML IV SCH (01:15)
--- NOTE | 2022-01-22 01:17 | XR ---
EXAMINATION TYPE: XR chest 1V portable DATE OF EXAM: 01/22/2022 COMPARISON: 01/22/2022 HISTORY: Tube placement TECHNIQUE: FINDINGS: The endotracheal tube is 3.5 cm from the jerry. There is almost complete opacification rig ht hemithorax. There is infiltrate and atelectasis left lung base. There are chest leads. There is ri ght jugular catheter with tip in the right atrium. IMPRESSION: Progressive opacification of the right hemithorax. Large right pleural effusion and right pulmonary consolidation. Atelectasis and infiltrate left lower lobe.
[2022-01-22] MEDS ORDERED: CISATRACURIUM 200 MG in SODIUM CHLORIDE 0.9% 180 ML IV SCH (01:30)
[2022-01-22 01:33] LABS: ABG Base Excess 5.8 mmol/L; ABG HCO3 30 mmol/L (21-25); ABG Oxygen Saturation 96.8 % (94-97); ABG PCO2 48 mmHg (35-45); ABG PH 7.41 (7.35-7.45); ABG PO2 84 mmHg (83-108); ABG TCO2 32 mmol/L (19-24); Allen Test Performed? Yes
[2022-01-22 02:24] LABS: Basophils % (A) 0 %; Eosinophils % (A) 0 %; HCT 24.7 % (39.0-53.0); HGB 7.5 gm/dL (13.0-17.5); Hypochromasia Marked; Lymphocytes # (A) 0.2 k/uL (1.0-4.8); Lymphocytes % (A) 4 %; MCH 30.2 pg (25.0-35.0); MCHC 30.2 g/dL (31.0-37.0); MCV 100.2 fL (80.0-100.0); Macrocytosis Slight; Mean Platelet Volume 9.9; Monocytes # (A) 0.2 k/uL (0-1.0); Monocytes % (A) 3 %; Neutrophils # (A) 5.3 k/uL (1.3-7.7); Neutrophils % (A) 92 %; Platelet Count 183 k/uL (150-450); RBC 2.47 m/uL (4.30-5.90); RDW 15.8 % (11.5-15.5); WBC 5.8 k/uL (3.8-10.6)
[2022-01-22 02:31] LABS: Albumin 1.9 g/dL (3.5-5.0); Calcium 7.9 mg/dL (8.4-10.2); Potassium 3.8 mmol/L (3.5-5.1); Total Bilirubin 0.8 mg/dL (0.2-1.3); Total Protein 5.1 g/dL (6.3-8.2)
--- NOTE | 2022-01-22 02:33 | P.EN ---
A team called on this patient , who is becoming more hypoxic and lethargic, patient presented initially for incarcerated hernia , he was intubated post operatively , and then successfully extubated and sent to the floor, currently continues on IV antibiotics, and suppotive care , with plans for PEG tube in AM however, he suddenly became more hypoxic and lethargic. on exam , diminished breath sounds over right side of the lungs anasarca makes brief eye contact, otherwise lethargic and does not follow commands. patient placed on non rebreather, oxygen slightly improved to 89-90% ABG showed acute hypercapnic respiratory failure and acidosis CXR showed complete white out of the right side of the lung, earlier CXR showed large right sided pleural effusion case discussed with family , confirmed wishes to pursue full medical measures, including intubation and mechanical vent patient sent to the ICU , intubated on mechanical vent initiated on vassopressor due to hypotension given a dose of bicarb RN to discuss CXR findings with ICU attending hypoxemia resolved with ventilator abd wound dehiscence post op, with increase blood tinged serous drainage from the wound, Gen surgery paged await call back hold Heparin , currently for history of afib, follow up PTT,/PT/INR /Fibrinogen, folllow CBC continue with supportive care guarded prognosis 55 minutes were spent in critical care service in the care of this patient not including procedure time
[2022-01-22 02:41] LABS: INR 1.1 (<1.2); Partial Thromboplastin Time 31.3 sec (22.0-30.0); Prothrombin Time 11.6 sec (9.0-12.0)
[2022-01-22 03:14] LABS: Glucose,Whole Blood 156 mg/dL (75-99)
[2022-01-22] MEDS: INSULIN ASPART (NovoLOG) 100 UNIT/ML VIAL SQ SCH ×3 (04:40→12:40)
[2022-01-22] MEDS ORDERED: Potassium Replacement Protocol 1 EACH MISC MISCELLANE PRN (04:53)
[2022-01-22] MEDS ORDERED: POTASSIUM BICARBONATE/CIT AC 20 MEQ TABLET.EFF NG-TUBE SCH (05:00)
[2022-01-22 06:13] LABS: Glucose,Whole Blood 116 mg/dL (75-99)
[2022-01-22] MEDS: HYDROCORTISONE SUCCINATE 100 MG/2 ML VIAL IV SCH (06:23)
[2022-01-22] MEDS: MIDODRINE 5 MG TAB PO SCH ×2 (08:14→12:35)
[2022-01-22 08:26] VITALS: TEMP 97.8
--- NOTE | 2022-01-22 08:49 | P.CNNES ---
History of Present Illness Consult date: 01/21/22 Requesting physician: Cale Jimenez Reason for Consult: Mental status change History of Present Illness: Patient is a 72-year-old male came to the hospital on 01/06/2022 for pneumonia. Patient has complicated hospital course, in which she has suffered from strangulated parastomal hernia and incision hernia, status post exploratory laparotomy. Repair of strangulated parastomal hernia, small bowel resection with ileostomy and repair of incisional hernia. He then developed abdominal incision infection, sepsis with septic shock due to Pseudomonas, and acute kidney injury. Neurology was consulted for mental status change. Patient's was present, who provided the history. Also discussed with patient's nurse. He was placed in the ICU for 7 days on a ventilator, and then was moved to the regular floor last Thursday or Thursday, (about a week ago). He was doing quite well. He was feeding well, and his remembers he was eating ice cream, milk, ensure, pudding. She remembers that last and 01/16/2022, he was trying to get out of bed and quite well. She states that on 01/18/2022, he did not want to eat, and since Thursday he has not eaten much. He was swollen all over, including his both upper limbs. His has also noticed that he is not moving much his left arm as compared to the right. The swelling in the right arm has resolved, but the left arm is still very swollen. She has noticed that he does not lift his left arm as well as the right. At present he cannot eat, cannot swallow, cannot talk. He is alert, triceps, but cannot get any words out. Patient's blood tests shows WBC 5.0 hemoglobin 7.3, platelets 152, elevated MCV 100.4. PT is 12.6 INR 1.2. He is on heparin IV with PTT 48.5. Sodium 147 potassium 2.8, BUN 71, creatinine 1.71. Calcium is 8.0. Stool occult blood is negative. Patient's chest x-ray from 01/20/2022 showed bilateral neural parenchymal changes with infiltrate and pleural effusion stable. Patient does not drink alcohol. He has smoked half pack per day since he was a teenager. He has diabetes for 30 years, hypertension and also on atrial fibrillation on aspirin regimen. Not on anticoagulation. Patient's states that he is fully vaccinated. 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 Last Myocardial Infarction Date:: 2008 History of Any Multi-Drug Resistant Organisms: None Reported Past Surgical History: Heart Catheterization With Stent Additional Past Surgical History / Comment(s): EXC.CATARACT RT EYE WITH LENS IMPLANT, COLONOSCOPY 01/2015, FATTY TUMORS REMOVED FROM STOMACH Past Anesthesia/Blood Transfusion Reactions: No Reported Reaction Date of Last Stent Placement:: 2008 Past Psychological History: No Psychological Hx Reported Smoking Status: Current every day smoker Past Alcohol Use History: Rare Past Drug Use History: None Reported - Past Family History Mother Family Medical History: Cancer, Deep Vein Thrombosis (DVT), Hypertension Additional Family Medical History / Comment(s): OF BREAST CA Father Family Medical History: Cancer Additional Family Medical History / Comment(s): STOMACH CA Medications and Allergies Home Medications Medication Instructions Recorded Confirmed Type Aspirin 81 mg PO DAILY 06/20/15 01/06/22 History Atorvastatin [Lipitor] 20 mg PO DAILY 06/20/15 01/06/22 History Omeprazole [PriLOSEC] 20 mg PO DAILY 06/20/15 01/06/22 History Isosorbide Mononitrate ER [Imdur] 30 mg PO DAILY 07/14/17 01/06/22 History Cholecalciferol [Vitamin D3 (25 25 mcg PO DAILY 01/06/22 01/06/22 History Mcg = 1000 Iu)] Clopidogrel [Plavix] 75 mg PO DAILY 01/06/22 01/06/22 History Docusate [Colace] 100 mg PO DAILY 01/06/22 01/06/22 History Empagliflozin [Jardiance] 10 mg PO HS 01/06/22 01/06/22 History Insulin Aspart Protam & Aspart 20 unit SQ BID 01/06/22 01/06/22 History [NovoLOG MIX 70-30 Flexpen] Metoclopramide [Reglan] 10 mg PO TID PRN 01/06/22 01/06/22 History Montelukast [Singulair] 10 mg PO HS 01/06/22 01/06/22 History lisinopriL [Zestril] 5 mg PO DAILY 01/06/22 01/06/22 History Allergies Allergy/AdvReac Type Severity Reaction Status Date / Time No Known Allergies Allergy Verified 01/06/22 17:24 Physical Examination - Vital Signs Vital Signs: Vital Signs Temp Pulse Resp BP Pulse Ox 01/21/22 11:36 97.7 F 74 18 123/65 95 01/21/22 08:00 98.1 F 89 20 136/64 96 01/21/22 07:30 91 L 01/21/22 04:00 97.5 F L 104 H 16 117/56 90 L 01/21/22 00:00 97.7 F 76 16 118/52 92 L 01/20/22 20:00 97.7 F 80 18 118/61 96 01/20/22 16:00 97.4 F L 85 18 115/50 96 Intake and Output 01/20/22 01/21/22 01/21/22 22:59 06:59 14:59 Intake Total 75.5 162.79 Output Total 20 1700 575 Balance 55.5 -1700 -412.21 Intake: Intake, IV Titration 75.5 162.79 Amount Heparin Sod,Pork in 0.45% 75.5 162.79 NaCl 25,000 unit In 0.45 % NaCl 1 250ml.bag @ 10. 384 UNITS/KG/HR 10 mls/hr IV .Q24H [facility] Rx#: [id number] Output: Urine 1675 575 Stool 20 25 Other: Voiding Method Ileal Conduit (Right) Ileal Conduit (Right) Ileal Conduit (R ight) Weight 96.3 kg Patient is an elderly male, who appears obtunded, obviously encephalopathic. Patient is encephalopathic, mouth open, dry lips and tongue, mouth breathing. Speech and language functions could not be assessed, as he did not speak any sentence or word. Attention, concentration and fund of knowledge cannot be assessed. He appears very distracted. On cranial examination, pupils are equal, 4 mm, round and sluggishly reacting to light, visual torre could not be tested, extraocular muscles could not be tested, but he had negative oculocephalics. Face is symmetric, tongue protrudes to the midline. Palatal elevation, palatal sensation, or hearing and facial sensations cannot be assessed. On muscle strength testing, patient appears generalized weak. He slightly moves the right arm better than the left. When both arms were lifted passively, both of them flops down bilaterally. The left hand is significantly swollen. Patient did not cooperate for testing of the lower extremities. Deep tendon reflexes are almost absent, and plantars are flat. Sensory to touch could not be assessed Cerebellar function cannot be assessed. Gait cannot be assessed On general examination, there is no carotid bruit or murmur, S1-S2 audible. Abdomen is soft nontender. Chest has some crackles. Patient has peripheral edema. Results - Laboratory Findings CBC and BMP: 01/22/22 02:00 01/22/22 02:00 Abnormal Lab Findings: Abnormal Labs 01/06/22 01/06/22 01/06/22 16:29 16:29 22:05 WBC 12.2 H RBC 3.34 L Hgb 10.4 L Hct 32.4 L MCV MCHC RDW Plt Count Neutrophils # 11.3 H Lymphocytes # 0.3 L Lymphocytes # (Manual) Metamyelocytes # (Man) PT INR APTT ABG pH ABG pCO2 ABG pO2 ABG HCO3 ABG Total CO2 ABG O2 Saturation ABG Lactic Acid Sodium Potassium Chloride Carbon Dioxide BUN 47 H Creatinine 3.17 H Glucose 252 H POC Glucose (mg/dL) Plasma Lactic Acid Guero 2.2 H* Calcium Ionized Calcium Cait Phosphorus Magnesium C-Reactive Protein Total Protein Albumin Triglycerides Urine Protein Urine Glucose (UA) Urine Blood Ur Leukocyte Esterase Urine RBC Urine WBC Urine Bacteria Urine Mucus Crossmatch 01/07/22 01/07/22 01/07/22 01:27 05:20 05:20 WBC 2.6 L RBC 3.69 L Hgb 11.2 L Hct 37.9 L MCV 102.7 H D MCHC 29.4 L RDW Plt Count Neutrophils # Lymphocytes # 0.2 L Lymphocytes # (Manual) 0.26 L Metamyelocytes # (Man) 0.10 H PT INR APTT ABG pH ABG pCO2 ABG pO2 ABG HCO3 ABG Total CO2 ABG O2 Saturation ABG Lactic Acid Sodium 134 L Potassium 6.1 H* Chloride Carbon Dioxide 18 L BUN 52 H Creatinine 3.29 H Glucose 340 H POC Glucose (mg/dL) Plasma Lactic Acid Guero 2.9 H* Calcium Ionized Calcium Cait Phosphorus Magnesium C-Reactive Protein Total Protein 5.9 L Albumin 2.9 L Triglycerides Urine Protein Urine Glucose (UA) Urine Blood Ur Leukocyte Esterase Urine RBC Urine WBC Urine Bacteria Urine Mucus Crossmatch 01/07/22 01/07/22 01/07/22 05:20 07:07 08:49 WBC RBC Hgb Hct MCV MCHC RDW Plt Count Neutrophils # Lymphocytes # Lymphocytes # (Manual) Metamyelocytes # (Man) PT INR APTT ABG pH ABG pCO2 ABG pO2 ABG HCO3 ABG Total CO2 ABG O2 Saturation ABG Lactic Acid Sodium Potassium Chloride Carbon Dioxide BUN Creatinine Glucose POC Glucose (mg/dL) 383 H Plasma Lactic Acid Guero 3.5 H* 4.4 H* Calcium Ionized Calcium Cait Phosphorus Magnesium C-Reactive Protein Total Protein Albumin Triglycerides Urine Protein Urine Glucose (UA) Urine Blood Ur Leukocyte Esterase Urine RBC Urine WBC Urine Bacteria Urine Mucus Crossmatch 01/07/22 01/07/22 01/07/22 11:39 11:39 11:54 WBC RBC Hgb Hct MCV MCHC RDW Plt Count Neutrophils # Lymphocytes # Lymphocytes # (Manual) Metamyelocytes # (Man) PT INR APTT ABG pH ABG pCO2 ABG pO2 ABG HCO3 ABG Total CO2 ABG O2 Saturation ABG Lactic Acid Sodium 133 L Potassium 5.5 H Chloride Carbon Dioxide 17 L BUN 55 H Creatinine 3.80 H Glucose 305 H POC Glucose (mg/dL) 307 H Plasma Lactic Acid Guero 4.9 H* Calcium 8.1 L Ionized Calcium Cait Phosphorus Magnesium C-Reactive Protein Total Protein Albumin Triglycerides Urine Protein Urine Glucose (UA) Urine Blood Ur Leukocyte Esterase Urine RBC Urine WBC Urine Bacteria Urine Mucus Crossmatch 01/07/22 01/07/22 01/07/22 12:23 15:23 18:07 WBC RBC Hgb Hct MCV MCHC RDW Plt Count Neutrophils # Lymphocytes # Lymphocytes # (Manual) Metamyelocytes # (Man) PT INR APTT ABG pH ABG pCO2 ABG pO2 ABG HCO3 ABG Total CO2 ABG O2 Saturation ABG Lactic Acid Sodium Potassium Chloride Carbon Dioxide BUN Creatinine Glucose POC Glucose (mg/dL) 293 H 200 H Plasma Lactic Acid Guero 3.1 H* Calcium Ionized Calcium Cait Phosphorus Magnesium C-Reactive Protein Total Protein Albumin Triglycerides Urine Protein Urine Glucose (UA) Urine Blood Ur Leukocyte Esterase Urine RBC Urine WBC Urine Bacteria Urine Mucus Crossmatch 01/07/22 01/07/22 01/08/22 21:00 23:30 03:25 WBC 2.6 L RBC 3.15 L Hgb 9.8 L Hct 31.5 L MCV 100.1 H MCHC RDW Plt Count Neutrophils # Lymphocytes # Lymphocytes # (Manual) 0.42 L Metamyelocytes # (Man) 0.18 H PT INR APTT ABG pH ABG pCO2 ABG pO2 ABG HCO3 ABG Total CO2 ABG O2 Saturation ABG Lactic Acid Sodium Potassium Chloride Carbon Dioxide BUN Creatinine Glucose POC Glucose (mg/dL) 164 H Plasma Lactic Acid Guero Calcium Ionized Calcium Cait Phosphorus Magnesium C-Reactive Protein Total Protein Albumin Triglycerides Urine Protein 1+ H Urine Glucose (UA) 3+ H Urine Blood Large H Ur Leukocyte Esterase Large H Urine RBC 59 H Urine WBC 83 H Urine Bacteria Rare H Urine Mucus Rare H Crossmatch 01/08/22 01/08/22 01/08/22 03:25 06:24 08:38 WBC RBC Hgb Hct MCV MCHC RDW Plt Count Neutrophils # Lymphocytes # Lymphocytes # (Manual) Metamyelocytes # (Man) PT INR APTT ABG pH 7.22 L ABG pCO2 ABG pO2 73 L ABG HCO3 16 L ABG Total CO2 17 L ABG O2 Saturation 93.8 L ABG Lactic Acid Sodium Potassium 5.7 H Chloride 110 H Carbon Dioxide 16 L BUN 55 H Creatinine 3.65 H Glucose 140 H POC Glucose (mg/dL) 124 H Plasma Lactic Acid Guero Calcium 7.6 L Ionized Calcium Cait Phosphorus Magnesium C-Reactive Protein Total Protein Albumin Triglycerides Urine Protein Urine Glucose (UA) Urine Blood Ur Leukocyte Esterase Urine RBC Urine WBC Urine Bacteria Urine Mucus Crossmatch 01/08/22 01/08/22 01/08/22 11:36 16:59 17:30 WBC 2.2 L RBC 2.63 L Hgb 8.5 L Hct 26.3 L MCV 100.2 H MCHC RDW Plt Count 138 L Neutrophils # Lymphocytes # Lymphocytes # (Manual) Metamyelocytes # (Man) PT INR APTT ABG pH ABG pCO2 ABG pO2 ABG HCO3 ABG Total CO2 ABG O2 Saturation ABG Lactic Acid Sodium Potassium Chloride Carbon Dioxide BUN Creatinine Glucose POC Glucose (mg/dL) 129 H 180 H Plasma Lactic Acid Guero Calcium Ionized Calcium Cait Phosphorus Magnesium C-Reactive Protein Total Protein Albumin Triglycerides Urine Protein Urine Glucose (UA) Urine Blood Ur Leukocyte Esterase Urine RBC Urine WBC Urine Bacteria Urine Mucus Crossmatch 01/08/22 01/08/22 01/08/22 17:30 17:30 18:50 WBC RBC Hgb Hct MCV MCHC RDW Plt Count Neutrophils # Lymphocytes # Lymphocytes # (Manual) Metamyelocytes # (Man) PT INR APTT ABG pH 7.29 L ABG pCO2 ABG pO2 69 L ABG HCO3 19 L ABG Total CO2 ABG O2 Saturation 92.9 L ABG Lactic Acid 6.5 H* Sodium Potassium Chloride 111 H Carbon Dioxide 15 L BUN 56 H Creatinine 3.45 H Glucose 200 H POC Glucose (mg/dL) Plasma Lactic Acid Guero Calcium 7.6 L Ionized Calcium Cait Phosphorus 6.5 H Magnesium 1.0 L C-Reactive Protein Total Protein Albumin Triglycerides Urine Protein Urine Glucose (UA) Urine Blood Ur Leukocyte Esterase Urine RBC Urine WBC Urine Bacteria Urine Mucus Crossmatch 01/08/22 01/08/22 01/09/22 21:12 21:23 00:01 WBC RBC Hgb Hct MCV MCHC RDW Plt Count Neutrophils # Lymphocytes # Lymphocytes # (Manual) Metamyelocytes # (Man) PT INR APTT ABG pH 7.20 L ABG pCO2 62 H ABG pO2 218 H ABG HCO3 ABG Total CO2 26 H ABG O2 Saturation 99.2 H ABG Lactic Acid Sodium Potassium Chloride Carbon Dioxide BUN Creatinine Glucose POC Glucose (mg/dL) 216 H Plasma Lactic Acid Guero 4.7 H* Calcium Ionized Calcium Cait Phosphorus Magnesium C-Reactive Protein Total Protein Albumin Triglycerides Urine Protein Urine Glucose (UA) Urine Blood Ur Leukocyte Esterase Urine RBC Urine WBC Urine Bacteria Urine Mucus Crossmatch 01/09/22 01/09/22 01/09/22 05:30 05:30 05:38 WBC RBC 2.79 L Hgb 8.8 L Hct 27.5 L MCV MCHC RDW 16.0 H Plt Count 135 L Neutrophils # Lymphocytes # Lymphocytes # (Manual) 0.30 L Metamyelocytes # (Man) PT INR APTT ABG pH ABG pCO2 ABG pO2 ABG HCO3 ABG Total CO2 ABG O2 Saturation ABG Lactic Acid Sodium Potassium Chloride 108 H Carbon Dioxide BUN 59 H Creatinine 3.15 H Glucose 224 H POC Glucose (mg/dL) 196 H Plasma Lactic Acid Guero Calcium 7.4 L Ionized Calcium Cait Phosphorus Magnesium C-Reactive Protein Total Protein 4.7 L Albumin 2.1 L Triglycerides Urine Protein Urine Glucose (UA) Urine Blood Ur Leukocyte Esterase Urine RBC Urine WBC Urine Bacteria Urine Mucus Crossmatch 01/09/22 01/09/22 01/09/22 06:03 11:32 17:24 WBC RBC Hgb Hct MCV MCHC RDW Plt Count Neutrophils # Lymphocytes # Lymphocytes # (Manual) Metamyelocytes # (Man) PT INR APTT ABG pH ABG pCO2 46 H ABG pO2 125 H ABG HCO3 27 H ABG Total CO2 28 H ABG O2 Saturation 98.6 H ABG Lactic Acid Sodium Potassium Chloride Carbon Dioxide BUN Creatinine Glucose POC Glucose (mg/dL) 176 H 141 H Plasma Lactic Acid Guero Calcium Ionized Calcium Cait Phosphorus Magnesium C-Reactive Protein Total Protein Albumin Triglycerides Urine Protein Urine Glucose (UA) Urine Blood Ur Leukocyte Esterase Urine RBC Urine WBC Urine Bacteria Urine Mucus Crossmatch 01/10/22 01/10/22 01/10/22 03:58 03:58 05:45 WBC RBC 2.65 L Hgb 8.6 L Hct 25.3 L MCV MCHC RDW 16.1 H Plt Count 98 L Neutrophils # Lymphocytes # Lymphocytes # (Manual) 0.32 L Metamyelocytes # (Man) PT INR APTT ABG pH ABG pCO2 ABG pO2 ABG HCO3 31 H ABG Total CO2 ABG O2 Saturation 97.9 H ABG Lactic Acid Sodium Potassium Chloride Carbon Dioxide 31 H BUN 58 H Creatinine 2.72 H Glucose POC Glucose (mg/dL) Plasma Lactic Acid Guero Calcium 7.7 L Ionized Calcium Cait Phosphorus Magnesium C-Reactive Protein Total Protein 4.5 L Albumin 2.0 L Triglycerides Urine Protein Urine Glucose (UA) Urine Blood Ur Leukocyte Esterase Urine RBC Urine WBC Urine Bacteria Urine Mucus Crossmatch 01/10/22 01/10/22 01/10/22 11:37 11:55 17:59 WBC RBC Hgb Hct MCV MCHC RDW Plt Count Neutrophils # Lymphocytes # Lymphocytes # (Manual) Metamyelocytes # (Man) PT INR APTT ABG pH ABG pCO2 ABG pO2 ABG HCO3 ABG Total CO2 ABG O2 Saturation ABG Lactic Acid Sodium Potassium Chloride Carbon Dioxide BUN Creatinine Glucose POC Glucose (mg/dL) 133 H 153 H Plasma Lactic Acid Guero Calcium Ionized Calcium Cait 4.3 L Phosphorus Magnesium C-Reactive Protein Total Protein Albumin Triglycerides 514.00 H Urine Protein Urine Glucose (UA) Urine Blood Ur Leukocyte Esterase Urine RBC Urine WBC Urine Bacteria Urine Mucus Crossmatch 01/10/22 01/11/22 01/11/22 23:35 05:00 05:00 WBC RBC 2.69 L Hgb 8.5 L Hct 26.3 L MCV MCHC RDW 16.0 H Plt Count 85 L Neutrophils # Lymphocytes # Lymphocytes # (Manual) 0.54 L Metamyelocytes # (Man) PT INR APTT ABG pH ABG pCO2 ABG pO2 ABG HCO3 ABG Total CO2 ABG O2 Saturation ABG Lactic Acid Sodium Potassium 3.4 L Chloride Carbon Dioxide BUN 63 H Creatinine 2.53 H Glucose 200 H POC Glucose (mg/dL) 228 H Plasma Lactic Acid Guero Calcium 7.7 L Ionized Calcium Cait Phosphorus 4.8 H Magnesium C-Reactive Protein Total Protein 4.4 L Albumin 2.0 L Triglycerides Urine Protein Urine Glucose (UA) Urine Blood Ur Leukocyte Esterase Urine RBC Urine WBC Urine Bacteria Urine Mucus Crossmatch 01/11/22 01/11/22 01/11/22 05:36 05:50 11:36 WBC RBC Hgb Hct MCV MCHC RDW Plt Count Neutrophils # Lymphocytes # Lymphocytes # (Manual) Metamyelocytes # (Man) PT INR APTT ABG pH 7.46 H ABG pCO2 ABG pO2 135 H ABG HCO3 30 H ABG Total CO2 31 H ABG O2 Saturation 98.9 H ABG Lactic Acid Sodium Potassium Chloride Carbon Dioxide BUN Creatinine Glucose POC Glucose (mg/dL) 197 H Plasma Lactic Acid Guero Calcium Ionized Calcium Cait Phosphorus Magnesium C-Reactive Protein Total Protein Albumin 1.9 L Triglycerides Urine Protein Urine Glucose (UA) Urine Blood Ur Leukocyte Esterase Urine RBC Urine WBC Urine Bacteria Urine Mucus Crossmatch 01/11/22 01/11/22 01/11/22 11:39 17:40 23:57 WBC RBC Hgb Hct MCV MCHC RDW Plt Count Neutrophils # Lymphocytes # Lymphocytes # (Manual) Metamyelocytes # (Man) PT INR APTT ABG pH ABG pCO2 ABG pO2 ABG HCO3 ABG Total CO2 ABG O2 Saturation ABG Lactic Acid Sodium Potassium Chloride Carbon Dioxide BUN Creatinine Glucose POC Glucose (mg/dL) 208 H 200 H 221 H Plasma Lactic Acid Guero Calcium Ionized Calcium Cait Phosphorus Magnesium C-Reactive Protein Total Protein Albumin Triglycerides Urine Protein Urine Glucose (UA) Urine Blood Ur Leukocyte Esterase Urine RBC Urine WBC Urine Bacteria Urine Mucus Crossmatch 01/12/22 01/12/22 01/12/22 05:25 05:25 05:51 WBC RBC 2.59 L Hgb 8.1 L Hct 25.7 L MCV MCHC RDW 15.9 H Plt Count 83 L Neutrophils # 7.9 H Lymphocytes # 0.3 L Lymphocytes # (Manual) Metamyelocytes # (Man) PT INR APTT ABG pH ABG pCO2 ABG pO2 ABG HCO3 ABG Total CO2 ABG O2 Saturation ABG Lactic Acid Sodium Potassium 3.4 L Chloride Carbon Dioxide BUN 66 H Creatinine 2.18 H Glucose 248 H POC Glucose (mg/dL) 265 H Plasma Lactic Acid Guero Calcium 7.7 L Ionized Calcium Cait Phosphorus Magnesium C-Reactive Protein Total Protein 4.2 L Albumin 1.8 L Triglycerides Urine Protein Urine Glucose (UA) Urine Blood Ur Leukocyte Esterase Urine RBC Urine WBC Urine Bacteria Urine Mucus Crossmatch 01/12/22 01/12/22 01/12/22 06:00 11:29 12:31 WBC RBC Hgb Hct MCV MCHC RDW Plt Count Neutrophils # Lymphocytes # Lymphocytes # (Manual) Metamyelocytes # (Man) PT INR APTT ABG pH ABG pCO2 ABG pO2 ABG HCO3 29 H ABG Total CO2 30 H ABG O2 Saturation 97.4 H ABG Lactic Acid Sodium Potassium Chloride Carbon Dioxide BUN Creatinine Glucose POC Glucose (mg/dL) 283 H 271 H Plasma Lactic Acid Guero Calcium Ionized Calcium Cait Phosphorus Magnesium C-Reactive Protein Total Protein Albumin Triglycerides Urine Protein Urine Glucose (UA) Urine Blood Ur Leukocyte Esterase Urine RBC Urine WBC Urine Bacteria Urine Mucus Crossmatch 01/12/22 01/13/22 01/13/22 19:11 02:00 06:06 WBC RBC Hgb Hct MCV MCHC RDW Plt Count Neutrophils # Lymphocytes # Lymphocytes # (Manual) Metamyelocytes # (Man) PT INR APTT ABG pH ABG pCO2 ABG pO2 ABG HCO3 29 H ABG Total CO2 30 H ABG O2 Saturation 97.6 H ABG Lactic Acid Sodium Potassium Chloride Carbon Dioxide BUN Creatinine Glucose POC Glucose (mg/dL) 271 H 272 H Plasma Lactic Acid Guero Calcium Ionized Calcium Cait Phosphorus Magnesium C-Reactive Protein Total Protein Albumin Triglycerides Urine Protein Urine Glucose (UA) Urine Blood Ur Leukocyte Esterase Urine RBC Urine WBC Urine Bacteria Urine Mucus Crossmatch 01/13/22 01/13/22 01/13/22 06:20 06:22 12:03 WBC RBC Hgb Hct MCV MCHC RDW Plt Count Neutrophils # Lymphocytes # Lymphocytes # (Manual) Metamyelocytes # (Man) PT INR APTT ABG pH ABG pCO2 ABG pO2 ABG HCO3 ABG Total CO2 ABG O2 Saturation ABG Lactic Acid Sodium Potassium Chloride 112 H Carbon Dioxide BUN 73 H Creatinine 2.09 H Glucose 244 H POC Glucose (mg/dL) 257 H 277 H Plasma Lactic Acid Guero Calcium 7.9 L Ionized Calcium Cait Phosphorus Magnesium C-Reactive Protein Total Protein 4.5 L Albumin 1.8 L Triglycerides Urine Protein Urine Glucose (UA) Urine Blood Ur Leukocyte Esterase Urine RBC Urine WBC Urine Bacteria Urine Mucus Crossmatch 01/13/22 01/14/22 01/14/22 18:05 02:23 04:30 WBC 11.4 H RBC 2.67 L Hgb 8.4 L Hct 26.6 L MCV MCHC RDW 15.7 H Plt Count 98 L Neutrophils # 10.6 H Lymphocytes # 0.4 L Lymphocytes # (Manual) Metamyelocytes # (Man) PT INR APTT ABG pH ABG pCO2 ABG pO2 ABG HCO3 ABG Total CO2 ABG O2 Saturation ABG Lactic Acid Sodium Potassium Chloride Carbon Dioxide BUN Creatinine Glucose POC Glucose (mg/dL) 225 H 313 H Plasma Lactic Acid Guero Calcium Ionized Calcium Cait Phosphorus Magnesium C-Reactive Protein Total Protein Albumin Triglycerides Urine Protein Urine Glucose (UA) Urine Blood Ur Leukocyte Esterase Urine RBC Urine WBC Urine Bacteria Urine Mucus Crossmatch 01/14/22 01/14/22 01/14/22 04:30 05:49 07:06 WBC RBC Hgb Hct MCV MCHC RDW Plt Count Neutrophils # Lymphocytes # Lymphocytes # (Manual) Metamyelocytes # (Man) PT INR APTT ABG pH 7.46 H ABG pCO2 ABG pO2 ABG HCO3 27 H ABG Total CO2 28 H ABG O2 Saturation 97.3 H ABG Lactic Acid Sodium Potassium Chloride 109 H Carbon Dioxide BUN 84 H Creatinine 2.01 H Glucose 299 H POC Glucose (mg/dL) 314 H Plasma Lactic Acid Guero Calcium 7.9 L Ionized Calcium Cait Phosphorus Magnesium C-Reactive Protein Total Protein Albumin Triglycerides Urine Protein Urine Glucose (UA) Urine Blood Ur Leukocyte Esterase Urine RBC Urine WBC Urine Bacteria Urine Mucus Crossmatch 01/14/22 01/14/22 01/15/22 11:37 17:46 00:25 WBC RBC Hgb Hct MCV MCHC RDW Plt Count Neutrophils # Lymphocytes # Lymphocytes # (Manual) Metamyelocytes # (Man) PT INR APTT ABG pH ABG pCO2 ABG pO2 ABG HCO3 ABG Total CO2 ABG O2 Saturation ABG Lactic Acid Sodium Potassium Chloride Carbon Dioxide BUN Creatinine Glucose POC Glucose (mg/dL) 257 H 487 H 162 H Plasma Lactic Acid Guero Calcium Ionized Calcium Cait Phosphorus Magnesium C-Reactive Protein Total Protein Albumin Triglycerides Urine Protein Urine Glucose (UA) Urine Blood Ur Leukocyte Esterase Urine RBC Urine WBC Urine Bacteria Urine Mucus Crossmatch 01/15/22 01/15/22 01/15/22 04:50 04:50 05:28 WBC RBC 2.58 L Hgb 7.8 L Hct 25.6 L MCV MCHC 30.6 L RDW 16.2 H Plt Count 124 L Neutrophils # 9.0 H Lymphocytes # 0.3 L Lymphocytes # (Manual) Metamyelocytes # (Man) PT INR APTT ABG pH ABG pCO2 ABG pO2 ABG HCO3 26 H ABG Total CO2 28 H ABG O2 Saturation 97.7 H ABG Lactic Acid Sodium Potassium Chloride 112 H Carbon Dioxide BUN 98 H Creatinine 2.10 H Glucose 230 H POC Glucose (mg/dL) Plasma Lactic Acid Guero Calcium 8.1 L Ionized Calcium Cait Phosphorus 5.3 H Magnesium C-Reactive Protein Total Protein Albumin Triglycerides Urine Protein Urine Glucose (UA) Urine Blood Ur Leukocyte Esterase Urine RBC Urine WBC Urine Bacteria Urine Mucus Crossmatch 01/15/22 01/15/22 01/15/22 05:54 11:30 17:45 WBC RBC Hgb Hct MCV MCHC RDW Plt Count Neutrophils # Lymphocytes # Lymphocytes # (Manual) Metamyelocytes # (Man) PT INR APTT ABG pH ABG pCO2 ABG pO2 ABG HCO3 ABG Total CO2 ABG O2 Saturation ABG Lactic Acid Sodium Potassium Chloride Carbon Dioxide BUN Creatinine Glucose POC Glucose (mg/dL) 259 H 301 H 299 H Plasma Lactic Acid Guero Calcium Ionized Calcium Cait Phosphorus Magnesium C-Reactive Protein Total Protein Albumin Triglycerides Urine Protein Urine Glucose (UA) Urine Blood Ur Leukocyte Esterase Urine RBC Urine WBC Urine Bacteria Urine Mucus Crossmatch 01/15/22 01/15/22 01/16/22 21:28 23:55 00:03 WBC RBC Hgb Hct MCV MCHC RDW Plt Count Neutrophils # Lymphocytes # Lymphocytes # (Manual) Metamyelocytes # (Man) PT INR APTT ABG pH ABG pCO2 ABG pO2 ABG HCO3 ABG Total CO2 ABG O2 Saturation ABG Lactic Acid Sodium Potassium Chloride Carbon Dioxide BUN Creatinine Glucose POC Glucose (mg/dL) 278 H 195 H 210 H Plasma Lactic Acid Guero Calcium Ionized Calcium Cait Phosphorus Magnesium C-Reactive Protein Total Protein Albumin Triglycerides Urine Protein Urine Glucose (UA) Urine Blood Ur Leukocyte Esterase Urine RBC Urine WBC Urine Bacteria Urine Mucus Crossmatch 01/16/22 01/16/22 01/16/22 04:55 05:12 05:18 WBC RBC 2.17 L Hgb 6.7 L* Hct 21.4 L MCV MCHC RDW 16.2 H Plt Count 126 L Neutrophils # Lymphocytes # 0.3 L Lymphocytes # (Manual) Metamyelocytes # (Man) PT INR APTT ABG pH ABG pCO2 ABG pO2 ABG HCO3 27 H ABG Total CO2 28 H ABG O2 Saturation 98.0 H ABG Lactic Acid Sodium Potassium Chloride Carbon Dioxide BUN Creatinine Glucose POC Glucose (mg/dL) 210 H Plasma Lactic Acid Guero Calcium Ionized Calcium Cait Phosphorus Magnesium C-Reactive Protein Total Protein Albumin Triglycerides Urine Protein Urine Glucose (UA) Urine Blood Ur Leukocyte Esterase Urine RBC Urine WBC Urine Bacteria Urine Mucus Crossmatch 01/16/22 01/16/22 01/16/22 05:18 06:37 11:50 WBC RBC Hgb Hct MCV MCHC RDW Plt Count Neutrophils # Lymphocytes # Lymphocytes # (Manual) Metamyelocytes # (Man) PT INR APTT ABG pH ABG pCO2 ABG pO2 ABG HCO3 ABG Total CO2 ABG O2 Saturation ABG Lactic Acid Sodium 146 H Potassium Chloride 116 H Carbon Dioxide BUN 114 H* Creatinine 1.96 H Glucose 200 H POC Glucose (mg/dL) 244 H Plasma Lactic Acid Guero Calcium 8.0 L Ionized Calcium Cait Phosphorus Magnesium C-Reactive Protein Total Protein Albumin Triglycerides Urine Protein Urine Glucose (UA) Urine Blood Ur Leukocyte Esterase Urine RBC Urine WBC Urine Bacteria Urine Mucus Crossmatch See Detail 01/16/22 01/16/22 01/16/22 17:39 18:56 20:37 WBC RBC 2.28 L Hgb 7.0 L Hct 22.4 L MCV MCHC RDW 16.2 H Plt Count 145 L Neutrophils # Lymphocytes # Lymphocytes # (Manual) Metamyelocytes # (Man) PT INR APTT ABG pH ABG pCO2 ABG pO2 ABG HCO3 ABG Total CO2 ABG O2 Saturation ABG Lactic Acid Sodium Potassium Chloride Carbon Dioxide BUN Creatinine Glucose POC Glucose (mg/dL) 180 H 144 H Plasma Lactic Acid Guero Calcium Ionized Calcium Cait Phosphorus Magnesium C-Reactive Protein Total Protein Albumin Triglycerides Urine Protein Urine Glucose (UA) Urine Blood Ur Leukocyte Esterase Urine RBC Urine WBC Urine Bacteria Urine Mucus Crossmatch 01/16/22 01/17/22 01/17/22 23:33 04:05 04:05 WBC RBC 2.24 L Hgb 6.9 L* Hct 22.3 L MCV MCHC 30.8 L RDW Plt Count 144 L Neutrophils # Lymphocytes # 0.3 L Lymphocytes # (Manual) Metamyelocytes # (Man) PT INR APTT ABG pH ABG pCO2 ABG pO2 ABG HCO3 ABG Total CO2 ABG O2 Saturation ABG Lactic Acid Sodium 149 H Potassium 3.2 L Chloride 117 H Carbon Dioxide BUN 106 H* Creatinine 2.15 H Glucose 147 H POC Glucose (mg/dL) 175 H Plasma Lactic Acid Guero Calcium 8.3 L Ionized Calcium Cait Phosphorus Magnesium C-Reactive Protein Total Protein Albumin Triglycerides Urine Protein Urine Glucose (UA) Urine Blood Ur Leukocyte Esterase Urine RBC Urine WBC Urine Bacteria Urine Mucus Crossmatch 01/17/22 01/17/22 01/17/22 05:17 11:39 15:58 WBC RBC Hgb Hct MCV MCHC RDW Plt Count Neutrophils # Lymphocytes # Lymphocytes # (Manual) Metamyelocytes # (Man) PT INR APTT ABG pH ABG pCO2 ABG pO2 ABG HCO3 ABG Total CO2 ABG O2 Saturation ABG Lactic Acid Sodium 148 H Potassium Chloride Carbon Dioxide BUN Creatinine Glucose POC Glucose (mg/dL) 142 H 104 H Plasma Lactic Acid Guero Calcium Ionized Calcium Cait Phosphorus Magnesium C-Reactive Protein Total Protein Albumin Triglycerides Urine Protein Urine Glucose (UA) Urine Blood Ur Leukocyte Esterase Urine RBC Urine WBC Urine Bacteria Urine Mucus Crossmatch 01/17/22 01/18/22 01/18/22 16:39 00:21 06:00 WBC RBC Hgb Hct MCV MCHC RDW Plt Count Neutrophils # Lymphocytes # Lymphocytes # (Manual) Metamyelocytes # (Man) PT INR APTT ABG pH ABG pCO2 ABG pO2 ABG HCO3 ABG Total CO2 ABG O2 Saturation ABG Lactic Acid Sodium Potassium Chloride Carbon Dioxide BUN Creatinine Glucose POC Glucose (mg/dL) 214 H 258 H 151 H Plasma Lactic Acid Guero Calcium Ionized Calcium Cait Phosphorus Magnesium C-Reactive Protein Total Protein Albumin Triglycerides Urine Protein Urine Glucose (UA) Urine Blood Ur Leukocyte Esterase Urine RBC Urine WBC Urine Bacteria Urine Mucus Crossmatch 01/18/22 01/18/22 01/18/22 10:03 10:03 16:18 WBC RBC 2.29 L Hgb 7.3 L Hct 23.0 L MCV 100.4 H MCHC RDW Plt Count 146 L Neutrophils # Lymphocytes # 0.2 L Lymphocytes # (Manual) Metamyelocytes # (Man) PT INR APTT ABG pH ABG pCO2 ABG pO2 ABG HCO3 ABG Total CO2 ABG O2 Saturation ABG Lactic Acid Sodium 152 H 149 H Potassium 3.2 L Chloride 118 H 117 H Carbon Dioxide BUN 101 H* 95 H Creatinine 1.89 H 1.93 H Glucose 134 H POC Glucose (mg/dL) Plasma Lactic Acid Guero Calcium 8.2 L 7.9 L Ionized Calcium Cait Phosphorus Magnesium C-Reactive Protein Total Protein Albumin Triglycerides Urine Protein Urine Glucose (UA) Urine Blood Ur Leukocyte Esterase Urine RBC Urine WBC Urine Bacteria Urine Mucus Crossmatch 01/18/22 01/18/22 01/18/22 18:09 19:53 23:59 WBC RBC Hgb Hct MCV MCHC RDW Plt Count Neutrophils # Lymphocytes # Lymphocytes # (Manual) Metamyelocytes # (Man) PT INR APTT ABG pH ABG pCO2 ABG pO2 ABG HCO3 ABG Total CO2 ABG O2 Saturation ABG Lactic Acid Sodium Potassium Chloride Carbon Dioxide BUN Creatinine Glucose POC Glucose (mg/dL) 153 H 153 H 130 H Plasma Lactic Acid Guero Calcium Ionized Calcium Cait Phosphorus Magnesium C-Reactive Protein Total Protein Albumin Triglycerides Urine Protein Urine Glucose (UA) Urine Blood Ur Leukocyte Esterase Urine RBC Urine WBC Urine Bacteria Urine Mucus Crossmatch 01/19/22 01/19/22 01/19/22 06:02 08:47 08:47 WBC RBC 2.45 L Hgb 7.4 L Hct 25.2 L MCV 103.0 H MCHC 29.2 L RDW 15.9 H Plt Count Neutrophils # Lymphocytes # 0.3 L Lymphocytes # (Manual) Metamyelocytes # (Man) PT INR APTT ABG pH ABG pCO2 ABG pO2 ABG HCO3 ABG Total CO2 ABG O2 Saturation ABG Lactic Acid Sodium 150 H Potassium 3.4 L Chloride 119 H Carbon Dioxide BUN 88 H Creatinine 1.81 H Glucose POC Glucose (mg/dL) 72 L Plasma Lactic Acid Guero Calcium 8.2 L Ionized Calcium Cait Phosphorus Magnesium C-Reactive Protein 14.8 H Total Protein Albumin Triglycerides Urine Protein Urine Glucose (UA) Urine Blood Ur Leukocyte Esterase Urine RBC Urine WBC Urine Bacteria Urine Mucus Crossmatch 01/19/22 01/19/22 01/20/22 12:23 17:06 00:04 WBC RBC Hgb Hct MCV MCHC RDW Plt Count Neutrophils # Lymphocytes # Lymphocytes # (Manual) Metamyelocytes # (Man) PT INR APTT ABG pH ABG pCO2 ABG pO2 ABG HCO3 ABG Total CO2 ABG O2 Saturation ABG Lactic Acid Sodium Potassium Chloride Carbon Dioxide BUN Creatinine Glucose POC Glucose (mg/dL) 155 H 230 H 282 H Plasma Lactic Acid Guero Calcium Ionized Calcium Cait Phosphorus Magnesium C-Reactive Protein Total Protein Albumin Triglycerides Urine Protein Urine Glucose (UA) Urine Blood Ur Leukocyte Esterase Urine RBC Urine WBC Urine Bacteria Urine Mucus Crossmatch 01/20/22 01/20/22 01/20/22 06:12 07:42 07:42 WBC RBC 2.52 L Hgb 7.5 L Hct 26.2 L MCV 104.1 H MCHC 28.6 L RDW 16.0 H Plt Count Neutrophils # Lymphocytes # 0.3 L Lymphocytes # (Manual) Metamyelocytes # (Man) PT INR APTT ABG pH ABG pCO2 ABG pO2 ABG HCO3 ABG Total CO2 ABG O2 Saturation ABG Lactic Acid Sodium 147 H Potassium Chloride 116 H Carbon Dioxide BUN 86 H Creatinine 1.86 H Glucose 266 H POC Glucose (mg/dL) 292 H Plasma Lactic Acid Guero Calcium 8.2 L Ionized Calcium Cait Phosphorus Magnesium C-Reactive Protein Total Protein Albumin Triglycerides Urine Protein Urine Glucose (UA) Urine Blood Ur Leukocyte Esterase Urine RBC Urine WBC Urine Bacteria Urine Mucus Crossmatch 01/20/22 01/20/22 01/20/22 11:54 16:54 17:47 WBC RBC Hgb Hct MCV MCHC RDW Plt Count Neutrophils # Lymphocytes # Lymphocytes # (Manual) Metamyelocytes # (Man) PT INR APTT 35.3 H ABG pH ABG pCO2 ABG pO2 ABG HCO3 ABG Total CO2 ABG O2 Saturation ABG Lactic Acid Sodium Potassium Chloride Carbon Dioxide BUN Creatinine Glucose POC Glucose (mg/dL) 209 H 168 H Plasma Lactic Acid Guero Calcium Ionized Calcium Cait Phosphorus Magnesium C-Reactive Protein Total Protein Albumin Triglycerides Urine Protein Urine Glucose (UA) Urine Blood Ur Leukocyte Esterase Urine RBC Urine WBC Urine Bacteria Urine Mucus Crossmatch 01/21/22 01/21/22 01/21/22 00:01 01:34 06:14 WBC RBC Hgb Hct MCV MCHC RDW Plt Count Neutrophils # Lymphocytes # Lymphocytes # (Manual) Metamyelocytes # (Man) PT INR APTT 48.5 H ABG pH ABG pCO2 ABG pO2 ABG HCO3 ABG Total CO2 ABG O2 Saturation ABG Lactic Acid Sodium Potassium Chloride Carbon Dioxide BUN Creatinine Glucose POC Glucose (mg/dL) 146 H 107 H Plasma Lactic Acid Guero Calcium Ionized Calcium Cait Phosphorus Magnesium C-Reactive Protein Total Protein Albumin Triglycerides Urine Protein Urine Glucose (UA) Urine Blood Ur Leukocyte Esterase Urine RBC Urine WBC Urine Bacteria Urine Mucus Crossmatch 01/21/22 01/21/22 01/21/22 09:10 09:10 09:10 WBC RBC 2.33 L Hgb 7.3 L Hct 23.4 L MCV 100.4 H MCHC RDW Plt Count Neutrophils # Lymphocytes # 0.3 L Lymphocytes # (Manual) Metamyelocytes # (Man) PT 12.6 H INR 1.2 H APTT ABG pH ABG pCO2 ABG pO2 ABG HCO3 ABG Total CO2 ABG O2 Saturation ABG Lactic Acid Sodium 147 H Potassium 2.8 L Chloride 114 H Carbon Dioxide 31 H BUN 71 H Creatinine 1.71 H Glucose POC Glucose (mg/dL) Plasma Lactic Acid Guero Calcium 8.0 L Ionized Calcium Cait Phosphorus Magnesium C-Reactive Protein Total Protein Albumin Triglycerides Urine Protein Urine Glucose (UA) Urine Blood Ur Leukocyte Esterase Urine RBC Urine WBC Urine Bacteria Urine Mucus Crossmatch Assessment and Plan Assessment: * Altered mental status, likely due to toxic metabolic encephalopathy. Patient's anemia, hypernatremia, hypokalemia, renal insufficiency and perhaps underlying pulmonary dysfunction are the likely causes. CT head showed no acute stroke. * Atrial fibrillation with rapid ventricular rate, * Strangulated parastomal hernia and incision hernia, status post exploratory laparotomy. Repair of strength related parastomal hernia, small bowel resection with ileostomy and repair of incisional hernia. * Abdominal incision infection * Sepsis with septic shock due to Pseudomonas * Acute kidney injury * Chronic renal disease. * Hypertension * Hyperlipidemia * Diabetes * Coronary artery disease * Hypernatremia Plan: * Patient's has mentioned that he was doing better after he was transferred from ICU for a couple days, but has gradually got worse since 01/18/2022, with not eating, weakness and not talking. Patient's altered mental status is likely due to toxic metabolic encephalopathy due to reasons mentioned above. * Stat computed tomography scan of the head was done, which showed no evidence of an acute stroke. * Patient has history of atrial fibrillation, currently on aspirin, also on heparin IV. PTT is therapeutic. * Medical management as per IM, and other specialties. * We will follow patient clinically. * Discussed with patient's in detail.
--- NOTE | 2022-01-22 08:53 | PN ---
PROGRESS NOTE This is a patient who had a strangulated abdominal hernia and surgery and was on the floor with a history of chronic atrial fibrillation, unable to take any oral medications. He was on a heparin drip but yesterday developed progressive hypoxia. A TEAM was called and he has been intubated. He is in the ICU. He is on a ventilator at this time. Yesterday he was intubated because of persistent hypoxia. He is also on a Levophed drip to support his blood pressure. He probably must have aspirated. He has underlying cardiomyopathy with ejection fraction in the 35% to 40% range and also has chronic atrial fibrillation, for which he was anticoagulated. Anticoagulation has been held. He is on a ventilator and may require bronchoscopy. Blood pressure is acceptable on a Levophed drip, modest dose. S1-S2 heard normally, irregular in rhythm. Short systolic murmur noted. Ventilator-assisted breaths sounds audible. Rest of physical exam was not performed. Prognosis remains guarded. MMODL / IJN: [id number] /
[2022-01-22] MEDS: SCOPOLAMINE 1.5MG/72HR PATCH TRANSDERM SCH (08:59)
[2022-01-22] MEDS ORDERED: CHLORHEXIDINE GLUCONATE 15 ML CUP MUCOUS MEM SCH (09:00)
[2022-01-22] MEDS: PANTOPRAZOLE 40 MG/10 ML VIAL IVP SCH (09:00)
--- NOTE | 2022-01-22 09:00 | XR ---
EXAMINATION TYPE: XR chest 1V portable DATE OF EXAM: 01/22/2022 COMPARISON: 01/22/2022 HISTORY: Tube placement TECHNIQUE: Single frontal view of the chest is obtained. FINDINGS: Right-sided PICC line seen overlying the right atrial SVC confluence. Additional right IJ central line seen with tip overlying the right atrium. Interstitial lung pattern again noted with bonnie ateral infiltrate and small effusion. Heart size stable. Atherosclerotic change aorta. No pneumothora x. IMPRESSION: Bilateral pleural-parenchymal changes with infiltrate and pleural effusion with improved aeration involving the right lung.
--- NOTE | 2022-01-22 09:05 | ECHOF ---
Referral Reason:New a-fib MEASUREMENTS -------- HEIGHT: 180.3 cm WEIGHT: 91.6 kg BP: RVIDd: 2.3 cm (< 3.3) IVSd: 1.1 cm (0.6 - 1.1) LVIDd: 4.7 cm (3.9 - 5.3) LVPWd: 1.2 cm (0.6 - 1.1) IVSs: 1.5 cm LVIDs: 4.3 cm LVPWs: 1.4 cm LAESV Index (A-L): 23.04 ml/m Ao Diam: 3.4 cm (2.0 - 3.7) AV Cusp: 1.3 cm (1.5 - 2.6) LA Diam: 3.2 cm (2.7 - 3.8) MV EXCURSION: 13.189 mm (> 18.000) MV EF SLOPE: 63 mm/s (70 - 150) EPSS: 2.0 cm MV E Hitesh: 0.81 m/s MV DecT: 149 ms MV A Hitesh: 0.80 m/s MV E/A Ratio: 1.02 AV maxP.04 mmHg AV meanP.21 mmHg AR PHT: 520 ms RAP: 5.00 mmHg RVSP: 13.79 mmHg FINDINGS -------- This was a technically difficult study with suboptimal views. Pt. on a vent. The left ventricular size is normal. Left ventricular wall thickness is normal. There is severe g lobal hypokinesis of LV . Overall left ventricular systolic function is moderate-severely impaired with, an EF between 30 - 35 %. Normal LAP Grade 1 Diastolic Dysfunction. The right ventricle is normal in size. The left atrial size is normal. Normal LA size by volume 22+/-6 ml/m2. The right atrial size is normal. Lumason used Aortic valve is trileaflet and is mildly thickened. There is mild aortic regurgitation. There is mild aortic stenosis present. Peak/mean gradient across the Aortic Valve is 11.04mmHg / 6.21mmHg. The mitral valve is normal. Mild mitral regurgitation is present. The tricuspid valve appears structurally normal. Mild tricuspid regurgitation present. Right vent ricular systolic pressure is normal at < 35 mmHg. There is no pulmonic regurgitation present. The aortic root size is normal. Normal inferior vena cava with normal inspiratory collapse consistent with estimated right atrial pre ssure of 5 mmHg. There is no pericardial effusion. CONCLUSIONS -------- 1. The left ventricular size is normal. 2. Left ventricular wall thickness is normal. 3. There is severe global hypokinesis of LV . 4. Overall left ventricular systolic function is moderate-severely impaired with, an EF between 30 - 35 %. 5. Normal LAP Grade 1 Diastolic Dysfunction. 6. Aortic valve is trileaflet and is mildly thickened. 7. There is mild aortic stenosis present. 8. Peak/mean gradient across the Aortic Valve is 11.04mmHg / 6.21mmHg. 9. Mild mitral regurgitation is present. 10. Mild tricuspid regurgitation present. 11. There is no pericardial effusion. FLORAL ARRANGER: Tess Kim RDCS
[2022-01-22] MEDS: MEROPENEM 1 GM in SODIUM CHLORIDE 0.9% 100 ML IVPB SCH (09:20)
[2022-01-22] MEDS: METOPROLOL TARTRATE 50 MG TAB PO SCH (09:41)
[2022-01-22] MEDS ORDERED: IV FLUID CONTINUATION 1,000 ML IV ONE (10:15)
[2022-01-22] MEDS: AMIODARONE 200 MG TAB PO SCH (10:42)
[2022-01-22] MEDS: ASPIRIN 81 MG PO SCH (10:42)
[2022-01-22] MEDS: HEPARIN SOD,PORK IN 0.45% NACL 25,000 UNIT in 0.45% NACL 1 250ML.BAG IV SCH (10:42)
[2022-01-22 11:03] VITALS: BMI 28.8
[2022-01-22 11:37] LABS: Glucose,Whole Blood 81 mg/dL (75-99)
[2022-01-22] MEDS: INSULIN DETEMIR (LEVEMIR) 100 UNIT/ML SYR SQ SCH (11:37)
--- NOTE | 2022-01-22 12:12 | P.PN ---
Subjective Principal diagnosis: Patient is a 72-year-old male with history of bladder cancer status post cystectomy and ileal loop urostomy, he was admitted to the hospital with abdominal pain and found to have a parastomal hernia with incarceration and bowel necrosis. Patient was taken to surgery on 01/06/2022 and had explorative laparotomy with repair of strangulated parastomal hernia and small bowel resection with ileostomy and repair of incisional hernia. Patient is seen for follow-up for acute kidney injury, mostly ATN secondary to hypotension and sepsis as well as an obstructive component. Renal function has been improving. Patient has had good output from his urostomy. Patient was transferred back to ICU yesterday secondary to worsening shortness of breath. He was found to have significant opacification of his right lung. He is currently on the vent. Patient is status post bronchoscopy this morning with lavage. Urine output 100-200 mL an hour Currently maintained on IV fluids. Blood pressure remains low. Started on levo fed Objective - Vital Signs Vital signs: Vital Signs Temp 97.8 F 01/22/22 08:00 Pulse 68 01/22/22 10:00 Resp 24 01/22/22 10:00 BP 87/58 01/22/22 10:00 Pulse Ox 100 01/22/22 10:00 Intake & Output 01/21/22 01/22/22 01/22/22 18:59 06:59 18:59 Intake Total 162.79 880.558 657.423 Output Total 900 1360 575 Balance -737.21 -479.442 82.423 Weight 96.3 kg 91 kg 91 kg Intake: IV 500 425 Dextrose 5% in Water 1, 500 400 000 ml @ 100 mls/hr IV . Q10H [facility] Rx#:[id number] Intake, IV Titration 162.79 380.558 232.423 Amount Cisatracurium 200 mg In 14.445 58.213 Sodium Chloride 0.9% 180 ml @ 1 MCG/KG/MIN 5.778 mls/hr IV .Q24H [facility] Rx#: [id number] Dextrose 5% in Water 1, 100 000 ml @ 100 mls/hr IV . Q10H [facility] Rx#:[id number] Heparin Sod,Pork in 0.45% 162.79 190.22 NaCl 25,000 unit In 0.45 % NaCl 1 250ml.bag @ 10. 384 UNITS/KG/HR 10 mls/hr IV .Q24H [facility] Rx#: [id number] Norepinephrine 4 mg In 62.373 89.034 Sodium Chloride 0.9% 250 ml @ 0.05 MCG/KG/MIN 18. 345 mls/hr IV .[id number] [facility] Rx#:[id number] propofoL 1,000 mg In 13.52 85.176 Empty Bag 1 bag @ Titrate IV .Q0M [facility] Rx#: [id number] Oral 0 Output: Urine 900 1360 575 Other: Voiding Method Ileal Conduit (Right) Ileal Conduit (Right) Ileal Conduit (Right) ABP, PAP, CO, CI - Last Documented Arterial Blood Pressure 109/44 - Exam Patient is sedated. He is currently on the vent. Examination of the heart S1 and S2 Examination lungs bilateral breath sounds are heard Abdomen is soft nontender. Urostomy and ileostomy is intact. Examination of lower extremities shows no significant edema. 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 - Labs CBC & Chem 7: 01/22/22 02:00 01/22/22 02:00 Labs: Abnormal Lab Results - Last 24 Hours (Table) 01/21/22 01/22/22 01/22/22 Range/Units 23:58 00:07 00:26 RBC (4.30-5.90) m/uL Hgb (13.0-17.5) gm/dL Hct (39.0-53.0) % MCV (80.0-100.0) fL MCHC (31.0-37.0) g/dL RDW (11.5-15.5) % Lymphocytes # (1.0-4.8) k/uL APTT (22.0-30.0) sec ABG pH 7.15 L* (7.35-7.45) ABG pCO2 86 H* (35-45) mmHg ABG pO2 70 L (83-108) mmHg ABG HCO3 30 H (21-25) mmol/L ABG Total CO2 33 H (19-24) mmol/L ABG O2 Saturation 88.3 L (94-97) % Chloride (98-107) mmol/L Carbon Dioxide (22-30) mmol/L BUN (9-20) mg/dL Creatinine (0.66-1.25) mg/dL Glucose (74-99) mg/dL POC Glucose (mg/dL) 162 H 171 H (75-99) mg/dL Calcium (8.4-10.2) mg/dL Total Protein (6.3-8.2) g/dL Albumin (3.5-5.0) g/dL 01/22/22 01/22/22 01/22/22 Range/Units 01:31 02:00 02:00 RBC (4.30-5.90) m/uL Hgb (13.0-17.5) gm/dL Hct (39.0-53.0) % MCV (80.0-100.0) fL MCHC (31.0-37.0) g/dL RDW (11.5-15.5) % Lymphocytes # (1.0-4.8) k/uL APTT 31.3 H (22.0-30.0) sec ABG pH (7.35-7.45) ABG pCO2 48 H (35-45) mmHg ABG pO2 (83-108) mmHg ABG HCO3 30 H (21-25) mmol/L ABG Total CO2 32 H (19-24) mmol/L ABG O2 Saturation (94-97) % Chloride 111 H (98-107) mmol/L Carbon Dioxide 31 H (22-30) mmol/L BUN 72 H (9-20) mg/dL Creatinine 1.85 H (0.66-1.25) mg/dL Glucose 152 H (74-99) mg/dL POC Glucose (mg/dL) (75-99) mg/dL Calcium 7.9 L (8.4-10.2) mg/dL Total Protein 5.1 L (6.3-8.2) g/dL Albumin 1.9 L (3.5-5.0) g/dL 01/22/22 01/22/22 01/22/22 Range/Units 02:00 03:13 06:12 RBC 2.47 L (4.30-5.90) m/uL Hgb 7.5 L (13.0-17.5) gm/dL Hct 24.7 L (39.0-53.0) % MCV 100.2 H (80.0-100.0) fL MCHC 30.2 L (31.0-37.0) g/dL RDW 15.8 H (11.5-15.5) % Lymphocytes # 0.2 L (1.0-4.8) k/uL APTT (22.0-30.0) sec ABG pH (7.35-7.45) ABG pCO2 (35-45) mmHg ABG pO2 (83-108) mmHg ABG HCO3 (21-25) mmol/L ABG Total CO2 (19-24) mmol/L ABG O2 Saturation (94-97) % Chloride (98-107) mmol/L Carbon Dioxide (22-30) mmol/L BUN (9-20) mg/dL Creatinine (0.66-1.25) mg/dL Glucose (74-99) mg/dL POC Glucose (mg/dL) 156 H 116 H (75-99) mg/dL Calcium (8.4-10.2) mg/dL Total Protein (6.3-8.2) g/dL Albumin (3.5-5.0) g/dL Microbiology - Last 24 Hours (Table) 01/22/22 02:00 Sputum Culture - Preliminary Sputum Assessment and Plan Assessment: 1. Acute kidney injury, ATN nonoliguric secondary to hypotension and sepsis as well as an obstructive, component. CT of the abdomen on initial admission showed the parastomal hernia with obstruction and mild bilateral hydronephrosis and hydroureter. Currently urine output is good urine ostomy seems to be working fairly well. Continue with IV fluids 2. Incarcerated parastomal hernia and necrotic bowel status post emergency resection of the bowel with ileostomy and repair of strangulated parastomal hernia. 3. Hypotension from sepsis maintained on antibiotics and levo fed has been discontinued 4. History of bladder cancer status post cystectomy and ileal loop urostomy 5. Hyperkalemia associated with acute kidney injury and metabolic acidosis, resolved 6. Metabolic acidosis associated with acute kidney injury and hypotension, status post IV bicarb 7. Pseudomonas bacteremia, source is likely abdominal. Urine culture is negative 8. Hypernatremia maintained on D5W, improved 9. Right lung pneumonia versus collapse status post bronchoscopy, currently on the vent Plan: Continue with IV fluids CODE STATUS being addressed again
[2022-01-22] MEDS ORDERED: MORPHINE SULFATE 4 MG/ML SYRINGE IVP ONE (12:31)
[2022-01-22] MEDS ORDERED: MORPHINE SULFATE 10 MG/ML 1ML VIAL IVP ONE (12:31)
[2022-01-22] MEDS ORDERED: LORazepam 2 MG/ML INJ IV PRN (12:31)
[2022-01-22] MEDS: DEXTROSE 5% IN WATER 1,000 ML IV SCH (12:35)
--- NOTE | 2022-01-22 12:35 | OP ---
OPERATIVE REPORT OPERATIVE REPORT: Bronchoscopy and bronchoalveolar lavage of the right lung with suctioning of the mucus plugs in the airways, including right upper lobe, right middle lobe and right lower lobe as well as the right mainstem bronchus. PREOPERATIVE DIAGNOSIS: Right lung collapse and acute hypoxic respiratory failure secondary to mucus plugging. POSTOPERATIVE DIAGNOSIS: Right lung collapse and acute hypoxic respiratory failure secondary to mucus plugging. ANESTHESIA USED: The patient was already on propofol and Nimbex prior to the procedure. PROCEDURE DESCRIPTION: The patient was placed in supine position. He was already on mechanical ventilation. An adapter was placed at the end of the endotracheal tube. We monitored his O2 saturation continuously. Blood pressure was continuously monitored via arterial line and cardiac rhythm was continuously monitored. Oxygen saturation was monitored via pulse oximetry. The bronchoscope was advanced through the adapter of the endotracheal tube, and advanced all the way down to the distal end of the endotracheal tube. As I was able to visualize the right mainstem bronchus, there was evidence of a significant amount of purulent secretions. The purulent secretions were suctioned, and I kept suctioning purulent secretions from the right side. They were very thick, and multiple attempts were made to clear all the secretions. After multiple attempts, I was able to clear the mucus plugs from the right mainstem bronchus, right upper lobe, right middle lobe and right lower lobe. I then took a look on the left side. There were minimal purulent secretions but no evidence of mucus plugs, and these were suctioned easily. The fluid obtained from the right lung was sent for different diagnostic studies. Procedure was well tolerated; no evidence of any complications. MMODL / IJN: [id number] /
[2022-01-22 12:42] VITALS: PULSE 58
[2022-01-22] MEDS: DILTIAZEM 125 MG in SODIUM CHLORIDE 0.9% 100 ML IV SCH (12:43)
--- NOTE | 2022-01-22 12:44 | OP ---
OPERATIVE REPORT OPERATIVE REPORT: Placement of left brachial arterial line. PREOPERATIVE DIAGNOSIS: Acute hypoxic respiratory failure and hypotension requiring norepinephrine. POSTOPERATIVE DIAGNOSIS: Acute hypoxic respiratory failure and hypotension requiring norepinephrine. ANESTHESIA USED: None deployed. PROCEDURE DESCRIPTION: The patient was placed in supine position. The left brachium region was prepared in a sterile fashion and drapes were applied. The left brachial artery was localized by Doppler. Then the left radial artery was cannulated, and a guidewire was placed. A Cook's catheter was inserted over the guidewire, and the guidewire was removed. Good blood flow and good waveform were noted. No complications. Line was secured using 3.0 silk sutures. MMODL / IJN: [id number] /
[2022-01-22] MEDS ORDERED: MORPHINE SULFATE (100 MG/2 ML) 100 MG in SODIUM CHLORIDE 0.9% 100 ML IV SCH (12:45)
--- NOTE | 2022-01-22 13:39 | P.PN ---
Subjective Progress Note Date: 01/22/22 Principal diagnosis: Acute hypoxic respiratory failure secondary to Sepsis and septic shock secondary to Pseudomonas bacteremia, most likely secondary to abdominal sepsis This is a 72-year-old male patient with a known history of coronary artery disease with previous stent placement, diabetes mellitus, hypertension, hyperlipidemia, BPH, chronic and ongoing tobacco dependence. He also has a history of urostomy that was done at [facility] several years ago and previous bladder cancer. He had presented to the emergency room yesterday with complaints of abdominal painand distention. CAT scan of the abdomen revealed cyst addition for parastomal hernia which is obstructing the patient Werner conduit through the subcutaneous tissues. There is mild bilateral hydronephrosis. Parastomal hernia containing small bowel demonstrated pneumobilia suggesting strangulation small bowel with possible perforation. Subcutaneous gas which may represent superimposed infections secondary to the small bowel strangulation and possible perforation. White count 12.2. Hemoglobin 10.4. Sodium 138. Potassium 4.8. BUN 47. Creatinine 3.17. Glucose 252. Plasma lactic acid 2.2. Troponin 0.013. House virus by PCR not detected. He was taken to the operating room last evening and had undergone an exploratory laparotomy, repair of strangulated parastomal hernia, small bowel resection with ileostomy, repair of incisional hernia. Blood cultures preliminary revealing gram-negative bacilli. Lactic acid up to 4.9 today. The patient had issues with hypotension and tachycardia this morning. We're consulted for ICU management. He was transferred there per medicine. 1 L of fluid resuscitation was given. Current labs revealed WBC 2.6. Hemoglobin 11.2. Sodium 133. Potassium 5.5. Chloride 105. Bicarb 17. BUN 55. Creatinine 3.80. Glucose 305. currently on Zosyn. He is seen today in consultation. He is awake and alert. He is having some surgical site pain but denies any worsening shortness of breath. No cough or congestion. No fever. The patient is seen today 01/08/2022 in follow-up in the intensive care unit. He is currently sitting up in bed. More awake and alert today. His color is better. He did receive 4 L of fluid resuscitation yesterday. He is now req uiring norepinephrine currently at 0.26 mcg/kg/m. He has 0.9% normal saline running at 125 ML's per hour. Mean arterial pressure 85 currently. He is tachycardic in the 120s. Sinus. Maintaining O2 saturation the high 90s on 2 L/m per nasal cannula. Chest x-ray continues to show interstitial changes in the lung bases. No pneumothorax. Suspect basilar atelectasis versus pneumonia and possible underlying interstitial lung disease. The patient denied having had COVID-19 infection. Blood culture is positive for pseudomonas aeruginosa. He is currently on Zosyn. White count 2.6. Hemoglobin 9.8. Sodium 138. Potassium 5.7. Bicarb 16. BUN 55. Creatinine 3.65. Glucose 140. Urinalysis with large amount of blood and high WBCs. Cultures pending. Arterial blood gases on 28% FiO2 revealed a PaO2 of 73, pCO2 38 and a pH of 7.22. He remains on DuoNeb inhalations, heparin for DVT prophylaxis, Protonix for GI prophylaxis. He remains nothing by mouth. There is minimal output of the ileostomy. Midline dressing dry and intact. Urostomy with adequate output. Currently in a 3.2 L positive balance Reevaluated today on 01/09/2022, patient remains in the ICU, intubated and mechanically ventilated. Clinical status deteriorated last night, patient had to be intubated. He is now on assist control rate of 30 tidal volume 500 FiO2 50% and PEEP of 8. ABG showed a pO2 of 125 pCO2 46 pH of 7.37. Patient had to be placed on bicarb drip yesterday and he is now on bicarbonate 50 mL per hour. His FiO2 was decreased down to 40% after reviewing the ABG. Patient is requiring norepinephrine at 0.25 he is also requiring vasopressin at 0.04. Received multiple fluid boluses yesterday, and the patient clearly has a septic shock presentation. He is on vasopressin at 0.04. He is also on fentanyl at 2 mcg/kg/hour, propofol at 35 mcg/kg/m, patient is not requiring any paralysis. Chest x-ray is showing a picture of congestive heart failure, possibly some pneumonia/superimposed. His cultures have been positive for pseudomonas aeruginosa. Patient remains on Zosyn. Urine cultures are nondiagnostic, sputum cultures are pending. WBC count today is 3.8 hemoglobin is 8.8. Complete metabolic profile is relatively unremarkable except for worsening renal profile with a BUN up to 59 and creatinine 3.15, being followed by nephrology on the case. Reevaluated today on 01/10/2022, patient remains in the ICU, intubated and mechanically ventilated sedated, but not paralyzed. Patient is on assist control mode of mechanical ventilation rate of 20, volume 500 FiO2 40% and PEEP of 8. ABG showed a pO2 of 106 pCO2 45 pH of 7.45. Patient is still requiring hemodynamic support, he is on vasopressin at 0.03 units per minute, norepinephrine at 0.24 mcg/kg/m. Total of 22 mcg/m. He is on fentanyl at 2 mcg/kg/m. And on propofol at 35 mcg/kg/m. Chest x-ray continues to show bilateral interstitial edema and/or infiltrates. Patient received significant amount of fluids on his initial presentation when he was septic and hypotensive, later on he was placed on pressors in the form of vasopressin and norepinephrine. CVP today is 8, hence no need for more fluids and no need for aggressive diuresis. Patient remains on bicarb drip at 50 mL per hour, and I will go ahead and discontinue bicarbonate based on his electrolytes and based on his ABG. His bicarb is 31. Renal profile today is improving, it was as high as 3.8, creatinine now is 2.72. WBC count is 4.5 hemoglobin is 8.6. Patient remains on Zosyn for his Pseudomonas bacteremia and I believe the most likely source of his Pseudomonas is his GI tract patient remains on GI and DVT prophylaxis. Platelets are 98,000, not unexpected considering the patient is septic and has septic shock on presentation Reevaluated today on 01/11/2022, patient remains in the ICU, intubated and mechanically ventilated. He is on assist control rate of 2012 volume 500 FiO2 40% and PEEP of 8. Today I cut down the PEEP down to 6. ABG showed a pO2 of 135 pCO2 41 pH of 7.46. WBC count is 5.4 hemoglobin 8.5. Electrolytes are normal, renal profile is improving with a BUN 63 creatinine is down to 2.53. Creatinine was as high as 3.80 few days ago. Chest x-ray continues to show bilateral interstitial infiltrates/interstitial edema but nonetheless it is improving. Patient remains empirically on antibiotics for his Pseudomonas patricia teremia and sepsis as well as septic shock. His platelets are noted to go down further today, hence I'm holding the heparin, patient will have Venodyne boots, and we will order a heparin-induced thrombocytopenia profile. Noted today that the patient was changed to Merrem instead of Zosyn. Mostly because the sensitivity on the pseudomonas seems to be intermediate to Zosyn. However it is sensitive to Merrem. Patient is still requiring norepinephrine he is on 0.21 mcg/kg/minute, and he is off vasopressin. I have a feeling that the patient will likely even though much less on norepinephrine if we cut down his sedation especially his fentanyl. And I plan to do so. We'll try to manage the patient's sedation only with propofol if possible. Reevaluated today on 01/12/2022, patient remains in the ICU, intubated and mechanically ventilated. Patient is on assist control rate of 20, volume 500 FiO2 40% and PEEP of 6. ABG showed a pO2 of 97 pCO2 42 pH of 7.45. Chest x-ray continues to show bilateral infiltrates, and possibly some component of interstitial edema. His WBC count is 8.7 hemoglobin is 8.1 and hematocrit is 25.7. Patient remains on propofol at 50 mcg/kg/m, remains on norepinephrine at 0.25, IV fluids at 75 mL per hour. Electrolytes showed low potassium of 3.4, BUN is 66 creatinine is 2.18, steadily improving. Patient is receiving Nepro and he is still on TPN. Platelets are down to 83, patient remains off heparin even subcu heparin. Workup for heparin-induced thrombocytopenia is pending. Patient remains on Merrem for pseudomonas aeruginosa bacteremia sepsis and septic shock. On 01/21/2022 patient seen in follow-up on selective care unit, he is awake and alert, however he is wasted is very weak, soft, through difficult to understand him, however he tries to whisper words back in response, seems to be appropriate. He seems to be less short of breath on today's exam, he is currently on 4 L of oxygen the pulse ox of 96%, blood pressure stable at 136/64, she is afebrile, he remains on antibiotics for bacteremia related to pseudomonas aeruginosa, to intra-abdominal source, abdominal cultures also showed pseudomonas aeruginosa and Vesta albicans. ID service is following. Patient denies any shortness of breath, lung sounds are diminished, his oral mucous membranes are dry, yesterday patient has failed swallow evaluation, he is being considered for TPN initiation today, surgical services are following and patient may need a PEG tube placement if the is agreeable to it. We stop patient's Lasix yesterday is she seemed to be quite dehydrated, she remains on D5W at a rate of 100 ML per hour, his labs 7 reviewed, white blood cell count is 5.0, hemoglobin 7.3, sodium is 147, potassium is 2.8, chloride is 114, CO2 is 31, BUN is 71, and creatinine is 1.71. His urostomy and ileostomy are producing clear yellow urine and loose green stool. Stool for occult blood was negative, patient has not been able to take his oral medications due to difficulty swallowing, and currently patient is on heparin for atrial fibrillation. Patient was reevaluated today on 01/22/2022. Patient had a sudden episode yesterday of profound shortness of breath, hypoxemia, with hypercapnia, patient required immediate intubation and transferred to the ICU. I was made aware of this patient last night and his chest x-ray showed almost near complete whiteni ng gout of the right side of the lung. Patient was intubated and kept on mechanical ventilation overnight, chest x-ray today showed some improvement but not basically back to normal, hence I came in and performed a bronchoscopy and bronchoalveolar lavage with suctioning of all the mucous plugs in the right mainstem bronchus, right upper lobe right middle lobe and right lower lobe. This was done uneventfully in the ICU. Patient also had a left brachial arterial line placed as he was hypotensive and requiring norepinephrine. His ventilator settings are assist control rate of 24, tidal volume 450, FiO2 70% and I cut it down to 50% and PEEP at 5 and a increase it up to 8. Patient required Nimbex overnight because he was extremely agitated, however I recommended stopping the Nimbex this morning, and kept on propofol at 20 mcg/kg/m he is also requiring norepinephrine at 0.02 mcg/kg/m. Patient received fluid boluses yesterday, and he will be receiving more fluid boluses today. Patient is also on enteral feeding. His surgical wound in the abdomen seems to be infected, and there is some separation of the surgical incision at the bottom aspect of his yuliya. Evidence of serous drainage noted from the area of the surgical incision. Objective - Vital Signs Vital signs: Vital Signs Temp 97.8 F 01/22/22 08:00 Pulse 58 L 01/22/22 12:30 Resp 0 L 01/22/22 12:30 BP 73/42 01/22/22 12:30 Pulse Ox 100 01/22/22 12:30 Intake & Output 01/21/22 01/22/22 01/22/22 18:59 06:59 18:59 Intake Total 162.79 880.558 715.026 Output Total 900 1360 575 Balance -737.21 -479.442 140.026 Weight 96.3 kg 91 kg 91 kg Intake: IV 500 425 Dextrose 5% in Water 1, 500 400 000 ml @ 100 mls/hr IV . Q10H [facility] Rx#:[id number] Intake, IV Titration 162.79 380.558 290.026 Amount Cisatracurium 200 mg In 14.445 58.213 Sodium Chloride 0.9% 180 ml @ 1 MCG/KG/MIN 5.778 mls/hr IV .Q24H [facility] Rx#: [id number] Dextrose 5% in Water 1, 100 000 ml @ 100 mls/hr IV . Q10H [facility] Rx#:[id number] Heparin Sod,Pork in 0.45% 162.79 190.22 NaCl 25,000 unit In 0.45 % NaCl 1 250ml.bag @ 10. 384 UNITS/KG/HR 10 mls/hr IV .Q24H [facility] Rx#: [id number] Norepinephrine 4 mg In 62.373 89.034 Sodium Chloride 0.9% 250 ml @ 0.05 MCG/KG/MIN 18. 345 mls/hr IV .[id number] [facility] Rx#:[id number] propofoL 1,000 mg In 13.52 142.779 Empty Bag 1 bag @ Titrate IV .Q0M [facility] Rx#: [id number] Oral 0 Output: Urine 900 1360 575 Other: Voiding Method Ileal Conduit (Right) Ileal Conduit (Right) Ileal Conduit (Right) ABP, PAP, CO, CI - Last Documented Arterial Blood Pressure 123/48 - Exam GENERAL EXAM: Revealed a 72-year-old white male intubated, mechanically ventilated, sedated, on propofol HEAD: Normocephalic. Atraumatic. EYES: Normal reaction of pupils, equal size. NOSE: Clear with pink turbinates. THROAT: No erythema or exudates. Endotracheal tube and orogastric tube are intact. NECK: No masses, no JVD. CHEST: Symmetrical chest expansion, no deformity. LUNGS: Crackles and rhonchi noted bilaterally. CVS: Irregular irregular rhythm. S1 and S2 normal with no audible murmur, regular rhythm. ABDOMEN: Urostomy on the left, ileostomy on the right, midline incision from his recent surgery seems to be infected, and ferrous drainage noted from the bottom aspect of the incision. The incision seems to be . SKIN: As noted above regarding the surgical incision. CENTRAL NERVOUS SYSTEM: Cannot assess, patient is fully sedated. He was also on Nimbex during my evaluation. Psychiatric: Could not assess - Labs CBC & Chem 7: 01/22/22 02:00 01/22/22 02:00 Labs: Abnormal Lab Results - Last 24 Hours (Table) 01/21/22 01/22/22 01/22/22 Range/Units 23:58 00:07 00:26 RBC (4.30-5.90) m/uL Hgb (13.0-17.5) gm/dL Hct (39.0-53.0) % MCV (80.0-100.0) fL MCHC (31.0-37.0) g/dL RDW (11.5-15.5) % Lymphocytes # (1.0-4.8) k/uL APTT (22.0-30.0) sec ABG pH 7.15 L* (7.35-7.45) ABG pCO2 86 H* (35-45) mmHg ABG pO2 70 L (83-108) mmHg ABG HCO3 30 H (21-25) mmol/L ABG Total CO2 33 H (19-24) mmol/L ABG O2 Saturation 88.3 L (94-97) % Chloride (98-107) mmol/L Carbon Dioxide (22-30) mmol/L BUN (9-20) mg/dL Creatinine (0.66-1.25) mg/dL Glucose (74-99) mg/dL POC Glucose (mg/dL) 162 H 171 H (75-99) mg/dL Calcium (8.4-10.2) mg/dL Total Protein (6.3-8.2) g/dL Albumin (3.5-5.0) g/dL 01/22/22 01/22/22 01/22/22 Range/Units 01:31 02:00 02:00 RBC (4.30-5.90) m/uL Hgb (13.0-17.5) gm/dL Hct (39.0-53.0) % MCV (80.0-100.0) fL MCHC (31.0-37.0) g/dL RDW (11.5-15.5) % Lymphocytes # (1.0-4.8) k/uL APTT 31.3 H (22.0-30.0) sec ABG pH (7.35-7.45) ABG pCO2 48 H (35-45) mmHg ABG pO2 (83-108) mmHg ABG HCO3 30 H (21-25) mmol/L ABG Total CO2 32 H (19-24) mmol/L ABG O2 Saturation (94-97) % Chloride 111 H (98-107) mmol/L Carbon Dioxide 31 H (22-30) mmol/L BUN 72 H (9-20) mg/dL Creatinine 1.85 H (0.66-1.25) mg/dL Glucose 152 H (74-99) mg/dL POC Glucose (mg/dL) (75-99) mg/dL Calcium 7.9 L (8.4-10.2) mg/dL Total Protein 5.1 L (6.3-8.2) g/dL Albumin 1.9 L (3.5-5.0) g/dL 01/22/22 01/22/22 01/22/22 Range/Units 02:00 03:13 06:12 RBC 2.47 L (4.30-5.90) m/uL Hgb 7.5 L (13.0-17.5) gm/dL Hct 24.7 L (39.0-53.0) % MCV 100.2 H (80.0-100.0) fL MCHC 30.2 L (31.0-37.0) g/dL RDW 15.8 H (11.5-15.5) % Lymphocytes # 0.2 L (1.0-4.8) k/uL APTT (22.0-30.0) sec ABG pH (7.35-7.45) ABG pCO2 (35-45) mmHg ABG pO2 (83-108) mmHg ABG HCO3 (21-25) mmol/L ABG Total CO2 (19-24) mmol/L ABG O2 Saturation (94-97) % Chloride (98-107) mmol/L Carbon Dioxide (22-30) mmol/L BUN (9-20) mg/dL Creatinine (0.66-1.25) mg/dL Glucose (74-99) mg/dL POC Glucose (mg/dL) 156 H 116 H (75-99) mg/dL Calcium (8.4-10.2) mg/dL Total Protein (6.3-8.2) g/dL Albumin (3.5-5.0) g/dL Microbiology - Last 24 Hours (Table) 01/22/22 02:00 Sputum Culture - Preliminary Sputum Assessment and Plan Assessment: Impression: Recurrent hypoxic and hypercapnic respiratory failure requiring reintubation and mechanical ventilation on 01/22/22. This was also a show she did with right lung collapse secondary to mucus plugging and unable to clear secretions. Acute hypoxic respiratory failure secondary to septic shock, secondary to Pseudomonas aeruginosa bacteremia, patient presented initially with strangulati on of the small bowel with possible perforation and had small bowel and pneumobilia. Patient is status post exploratory laparotomy repair of strangulated parastomal hernia small bowel resection and ileostomy with repair of incisional hernia on 01/06/2022, Patient was initially intubated on 01/08/20, extubated on 01/16, reintubated on 01/22 Pseudomonas aeruginosa bacteremia, maintenance on Merrem Hypotension secondary to septic shock, secondary to pseudomonas aeruginosa bacteremia Acute kidney injury secondary to sepsis and septic shock, improving Hyperkalemia secondary to acute kidney injury and septic shock/hypotension, resolved. History of bladder cancer with previous urostomy Type 2 diabetes. Dyslipidemia. Coronary artery disease and previous stent placement. Tobacco dependence syndrome. Paroxysmal atrial fibrillation. Dysphagia patient was supposed to have a PEG tube placement. Gen. medical debility Recommendation: Bronchoscopy and bronchoalveolar lavage of the right lung was performed today, washings were sent for different cultures, patient was found to have significant mucous plugs in the right lung throughout. Continue ventilatory support. Family is considering comfort care measures and I think it is very appropriate. Continue hemodynamic support.norepinephrine is being titrated down. Continue sedation Continue Merrem Continue GI and DVT prophylaxis. Prognosis is extremely poor. I fully agree with comfort care measures if the family is willing to proceed with comfort care measures Critical care time is over 30 minutes not including the time spent on procedures. . 0 Time with Patient: Greater than 30
--- NOTE | 2022-01-22 15:18 | P.PN ---
Subjective Progress Note Date: 01/22/22 CHIEF COMPLAINT: Strangulated parastomal hernia HISTORY OF PRESENT ILLNESS: Patient is status post Exploratory laparotomy, Repair of strangulated parastomal hernia, Small bowel resection with ileostomy and Repair of incisional hernia on 01/06/22. Patient required transfer to the ICU due to respiratory distress and was required to be intubated. Patient was found to have right lung collapse and acute hypoxic respiratory failure secondary to mucous plugging during his bronchoscopy. Patient's family has decided to make patient comfort care. Patient seen and examined with Dr. allen PHYSICAL EXAM: VITAL SIGNS: Reviewed. GENERAL: Intubated HEENT: No sclera icterus. Extraocular movements grossly intact. Moist buccal mucosa. Head is atraumatic, normocephalic. ABDOMEN: Soft. Abdominal incision site clean dry and intact. 2 areas are open with Aquasol Silver placed. Ileostomy liquidy brown stool. Urostomy stoma pink. Urine is clear ASSESSMENT: 1. Strangulated parastomal hernia and incisional hernia status post Exploratory laparotomy, Repair of strangulated parastomal hernia, Small bowel resection with ileostomy and Repair of incisional hernia 2. Abdominal incision infection 3. History of bladder cancer with urostomy 4. Acute kidney injury 5. Sepsis and septic shock 6. Bacteremia with Pseudomonas 7. New onset of A. fib 8. Severe protein calorie malnutrition PLAN: -Patient's overall prognosis is poor and guarded. -Agree with comfort care measures Physician Vascular Manager note has been reviewed by physician. Signing provider agrees with the documented findings, assessment, and plan of care. Objective - Vital Signs Vital signs: Vital Signs Temp 97.8 F 01/22/22 08:00 Pulse 58 L 01/22/22 12:30 Resp 0 L 01/22/22 12:30 BP 73/42 01/22/22 13:30 Pulse Ox 100 01/22/22 12:30 Intake & Output 01/21/22 01/22/22 01/22/22 18:59 06:59 18:59 Intake Total 162.79 880.558 740.896 Output Total 900 1360 575 Balance -737.21 -479.442 165.896 Weight 96.3 kg 91 kg 91 kg Intake: IV 500 425 Dextrose 5% in Water 1, 500 400 000 ml @ 100 mls/hr IV . Q10H [facility] Rx#:[id number] Intake, IV Titration 162.79 380.558 315.896 Amount Cisatracurium 200 mg In 14.445 67.073 Sodium Chloride 0.9% 180 ml @ 1 MCG/KG/MIN 5.778 mls/hr IV .Q24H [facility] Rx#: [id number] Dextrose 5% in Water 1, 100 000 ml @ 100 mls/hr IV . Q10H [facility] Rx#:[id number] Heparin Sod,Pork in 0.45% 162.79 190.22 NaCl 25,000 unit In 0.45 % NaCl 1 250ml.bag @ 10. 384 UNITS/KG/HR 10 mls/hr IV .Q24H [facility] Rx#: [id number] Morphine Sulfate (100 mg/ 0.255 2 ml) 100 mg In Sodium Chloride 0.9% 100 ml @ 1 MG/HR 1.02 mls/hr IV . Q24H [facility] Rx#:[id number] Norepinephrine 4 mg In 62.373 105.789 Sodium Chloride 0.9% 250 ml @ 0.05 MCG/KG/MIN 18. 345 mls/hr IV .[id number] [facility] Rx#:[id number] propofoL 1,000 mg In 13.52 142.779 Empty Bag 1 bag @ Titrate IV .Q0M [facility] Rx#: [id number] Oral 0 Output: Urine 900 1360 575 Other: Voiding Method Ileal Conduit (Right) Ileal Conduit (Right) Ileal Conduit (Right) ABP, PAP, CO, CI - Last Documented Arterial Blood Pressure 92/28 - Labs CBC & Chem 7: 01/22/22 02:00 01/22/22 02:00 Labs: Abnormal Lab Results - Last 24 Hours (Table) 01/21/22 01/22/22 01/22/22 Range/Units 23:58 00:07 00:26 RBC (4.30-5.90) m/uL Hgb (13.0-17.5) gm/dL Hct (39.0-53.0) % MCV (80.0-100.0) fL MCHC (31.0-37.0) g/dL RDW (11.5-15.5) % Lymphocytes # (1.0-4.8) k/uL APTT (22.0-30.0) sec ABG pH 7.15 L* (7.35-7.45) ABG pCO2 86 H* (35-45) mmHg ABG pO2 70 L (83-108) mmHg ABG HCO3 30 H (21-25) mmol/L ABG Total CO2 33 H (19-24) mmol/L ABG O2 Saturation 88.3 L (94-97) % Chloride (98-107) mmol/L Carbon Dioxide (22-30) mmol/L BUN (9-20) mg/dL Creatinine (0.66-1.25) mg/dL Glucose (74-99) mg/dL POC Glucose (mg/dL) 162 H 171 H (75-99) mg/dL Calcium (8.4-10.2) mg/dL Total Protein (6.3-8.2) g/dL Albumin (3.5-5.0) g/dL 01/22/22 01/22/22 01/22/22 Range/Units 01:31 02:00 02:00 RBC (4.30-5.90) m/uL Hgb (13.0-17.5) gm/dL Hct (39.0-53.0) % MCV (80.0-100.0) fL MCHC (31.0-37.0) g/dL RDW (11.5-15.5) % Lymphocytes # (1.0-4.8) k/uL APTT 31.3 H (22.0-30.0) sec ABG pH (7.35-7.45) ABG pCO2 48 H (35-45) mmHg ABG pO2 (83-108) mmHg ABG HCO3 30 H (21-25) mmol/L ABG Total CO2 32 H (19-24) mmol/L ABG O2 Saturation (94-97) % Chloride 111 H (98-107) mmol/L Carbon Dioxide 31 H (22-30) mmol/L BUN 72 H (9-20) mg/dL Creatinine 1.85 H (0.66-1.25) mg/dL Glucose 152 H (74-99) mg/dL POC Glucose (mg/dL) (75-99) mg/dL Calcium 7.9 L (8.4-10.2) mg/dL Total Protein 5.1 L (6.3-8.2) g/dL Albumin 1.9 L (3.5-5.0) g/dL 01/22/22 01/22/22 01/22/22 Range/Units 02:00 03:13 06:12 RBC 2.47 L (4.30-5.90) m/uL Hgb 7.5 L (13.0-17.5) gm/dL Hct 24.7 L (39.0-53.0) % MCV 100.2 H (80.0-100.0) fL MCHC 30.2 L (31.0-37.0) g/dL RDW 15.8 H (11.5-15.5) % Lymphocytes # 0.2 L (1.0-4.8) k/uL APTT (22.0-30.0) sec ABG pH (7.35-7.45) ABG pCO2 (35-45) mmHg ABG pO2 (83-108) mmHg ABG HCO3 (21-25) mmol/L ABG Total CO2 (19-24) mmol/L ABG O2 Saturation (94-97) % Chloride (98-107) mmol/L Carbon Dioxide (22-30) mmol/L BUN (9-20) mg/dL Creatinine (0.66-1.25) mg/dL Glucose (74-99) mg/dL POC Glucose (mg/dL) 156 H 116 H (75-99) mg/dL Calcium (8.4-10.2) mg/dL Total Protein (6.3-8.2) g/dL Albumin (3.5-5.0) g/dL Microbiology - Last 24 Hours (Table) 01/22/22 02:00 Sputum Culture - Preliminary Sputum
--- NOTE | 2022-01-22 16:00 | P.PN ---
Subjective Progress Note Date: 01/22/22 Xavier Langford is a 72 yo M with PMH of bladder cancer s/p cystectomy and urostomy, CAD, T2DM, who presented to the ED complaining of worsening abdominal pain and distention. CT on presentation showed large parastomal hernia obstructing his ileal conduit and concern for strangulation and possible perforation. Initial WBC 12.2. Hemoglobin 10.4. Sodium 138. Potassium 4.8. BUN 47. Creatinine 3.17. Glucose 252. Plasma lactic acid 2.2, trop negative. Pt underwent exploratory laparotomy, repair of strangulated parastomal hernia, small bowel resection with ileostomy, repair of incisional hernia. Today his labs reflect drop in WBC to 2.6, Potassium 6.1, Cr 3.8. Blood cultures preliminary revealing gram-negative bacilli. 01/08/22 Tachycardic, heart rates in the 120s to 130s, tachypneic.Maintained on Zo syn, blood culture reporting pseudomonas aeruginosa . Urine culture pending. Currently afebrile. Maintaining O2 sats in the high 90s on 2 L nasal cannula.Maintained on IV fluid hydration, and Levophed. Good urine output. Creatinine decreased to 3.65. ABGs reflecting metabolic acidosis, bicarb drip initiated. Complains of abdominal pain, greater on the right. Blood sugars controlled on low-dose Levemir. 01/09/2022 Developed atrial fibrillation with RVR in addition to respiratory distress requiring intubation and antiarrhythmics last night. Currently on FiO2 40%/+8 of PEEP. Maintained on fentanyl, bicarb, diprovan, amiodarone, vasopressin and the Levophed drips. Telemetry currently sinus rhythm .Continues on Zosyn for Pseudomonas bacteremia. Urine cultures negative. Sputum culture pending. Multiple fluid boluses yesterday, chest x-ray this morning reporting possible pneumonia, CHF, interstitial lung disease. Afebrile, T-max 99.4, normal WBC. Hemoglobin 8.8, platelets 135. Creatinine trending down, 3.15,Magnesium 1.6, nephrology following. 01/10/22 Remains vent dependent, FiO2 40%/+8 peep. Chest x-ray reporting stable bilateral infiltrate and pleural effusion, possible CHF superimposed on background of chronic interstitial pulmonary fibrosis and COPD, possible un derlying pneumonia. Telemetry sinus rhythm. 2-D echo completed, results pending .Maintained on bicarb, fentanyl, vasopressin, Levophed, diprovan drips. Hemoglobin 8.6 Creatinine continues to improve down to 2.72. T-max 99.8, WBC 4.5. Continues on Zosyn. 01/13/2010 remains vent dependent, FiO2 40%/+6 of PEEP. Chest x-ray pending. Maintained on diprovan, Levophed drips. T-max 100.1. Pseudomonas bacteremia suspect related to the abdomen. Maintained on meropenem, fluconazole. Preliminary repeat blood cultures currently reporting no growth after 24 hours. BUN 73, creatinine 2.09. Received a dose of Lasix today-generalized edema. Continues on TPN, tube feeds. 01/14/2022 vent dependent, FiO2 40%/+6 of PEEP. Chest x-ray reporting slight improvement. Last night developed atrial fibrillation with RVR, placed on Cardizem drip. Currently on sedation holiday with diprovan temporarily off. Continues to require pressor support with Levophed. Maintained on TPN ,blood sugars elevated. T-max 100.3, WBC 11.4, repeat preliminary blood cultures reporting no growth after 48 hours. 01/15/2022 remains vent dependent with FiO2 40%/+6 of PEEP. Maintained on Cardizem, Levophed and Diprovan drips. Failed weaning trials yesterday. 01/16/2022 remained off of sedation 24 hours with good weaning parameters, extubated this morning.Levophed has been off early a.m.Maintaining O2 sats in the 90s on 6 L high flow nasal cannula. Audible loose congestion,weak cough,scopolamine patch added to med regimen. Chest x-ray reporting stable diffuse bilateral pleural parenchymal changes.telemetry sinus rhythm.Continues on Cardizem drip,oral amiodarone with Eliquis resumed.hemoglobin 6.7, no blood t ransfusion at this time with repeat hemoglobin this afternoon as per surgery. Sodium 146,BUN 114, creatinine 1.96;DDAVP and IV fluids adjusted to D5 /0.45 as per nephrology.continues on meropenem and fluconazole,repeat blood culture report no growth after 96 hours. 01/17/2022 extubated yesterday, maintaining O2 sats in the 90s on 4 L nasal cannula. Chest x-ray reporting stable diffuse bilateral infiltrates and pleural effusions. Tolerating clear liquids ,diet has been advanced to full liquids for lunch time as per surgery. Conversing with minimal shortness of breath weak nonproductive cough, attempting to clear throat. Renal function mildly worsened, BUN 106, creatinine 2.15. Sodium worsening up to 149, IV fluids of D5W increased. Receiving potassium supplements for potassium of 3.2. Maintained on Merrem and fluconazole. Afebrile, WBC 7.4 ,T-max 99.2. Hemoglobin 6.9, platelets 144. Telemetry sinus rhythm on oral amiodarone and Cardizem. Anticoagulated with Eliquis. 01/21/2022 maintained D5W, sodium 147. BUN 71, creatinine 1.71. Potassium 2.8, replacement in progress. Evaluated by speech therapy, failed swallow evaluation. Scheduled for PEG tube placement yesterday. Lethargic, following simple commands, conversing in whispers appropriately. Telemetry atrial fibril lation with controlled ventricular rate. Anticoagulated on heparin drip. Hemoglobin 7.3, platelets 152, INR 1.2. Maintaining O2 sats in the low 90s on 4 L nasal cannula. Afebrile, normal WBC. Continues on IV antibiotics for bacteremia as well as abdominal wound cultures with Pseudomonas aeruginosa. 01/22/2022 during the field foreman hours patient developed respiratory distress, accompanied by hypoxia, hypercapnia, intubated and transferred back to the ICU. Chest x-ray at that time reported right lung nearly completely whitened out.received fluid boluses. Currently on 70% FiO2/+5 of PEEP. Maintained on diprovan, Levophed and Nimbex drips. Chest x-ray reporting some improvement .Scheduled for bronchoscopy today. Objective - Vital Signs Vital signs: Vital Signs Temp 97.8 F 01/22/22 08:00 Pulse 58 L 01/22/22 12:30 Resp 0 L 01/22/22 12:30 BP 73/42 01/22/22 13:30 Pulse Ox 100 01/22/22 12:30 Intake & Output 01/21/22 01/22/22 01/22/22 18:59 06:59 18:59 Intake Total 162.79 880.558 740.896 Output Total 900 1360 575 Balance -737.21 -479.442 165.896 Weight 96.3 kg 91 kg 91 kg Intake: IV 500 425 Dextrose 5% in Water 1, 500 400 000 ml @ 100 mls/hr IV . Q10H [facility] Rx#:[id number] Intake, IV Titration 162.79 380.558 315.896 Amount Cisatracurium 200 mg In 14.445 67.073 Sodium Chloride 0.9% 180 ml @ 1 MCG/KG/MIN 5.778 mls/hr IV .Q24H [facility] Rx#: [id number] Dextrose 5% in Water 1, 100 000 ml @ 100 mls/hr IV . Q10H [facility] Rx#:[id number] Heparin Sod,Pork in 0.45% 162.79 190.22 NaCl 25,000 unit In 0.45 % NaCl 1 250ml.bag @ 10. 384 UNITS/KG/HR 10 mls/hr IV .Q24H [facility] Rx#: [id number] Morphine Sulfate (100 mg/ 0.255 2 ml) 100 mg In Sodium Chloride 0.9% 100 ml @ 1 MG/HR 1.02 mls/hr IV . Q24H [facility] Rx#:[id number] Norepinephrine 4 mg In 62.373 105.789 Sodium Chloride 0.9% 250 ml @ 0.05 MCG/KG/MIN 18. 345 mls/hr IV .[id number] [facility] Rx#:[id number] propofoL 1,000 mg In 13.52 142.779 Empty Bag 1 bag @ Titrate IV .Q0M [facility] Rx#: [id number] Oral 0 Output: Urine 900 1360 575 Other: Voiding Method Ileal Conduit (Right) Ileal Conduit (Right) Ileal Conduit (Right) ABP, PAP, CO, CI - Last Documented Arterial Blood Pressure 92/28 - Exam General: Intubated sedated and on paralytics HEENT:normocephalic, atraumatic, intubated Neck: supple, no JVD Lungs: normal respiratory effort, scattered coarse rhonchi with crackles. CV: Irregular rate and rhythm, no murmur. Peripheral pulses 2+, positive edema with trace edema lower extremities Abdomen: Distended, soft, ileostomy and urostomy, abdominal surgical site , open areas with serous drainage currently without packing Skin: warm and dry. Neuro: Unable to evaluate at this time as patient sedated, paralyzed on Nimbex and intubated - Labs CBC & Chem 7: 01/22/22 02:00 01/22/22 02:00 Labs: Abnormal Lab Results - Last 24 Hours (Table) 01/21/22 01/22/22 01/22/22 Range/Units 23:58 00:07 00:26 RBC (4.30-5.90) m/uL Hgb (13.0-17.5) gm/dL Hct (39.0-53.0) % MCV (80.0-100.0) fL MCHC (31.0-37.0) g/dL RDW (11.5-15.5) % Lymphocytes # (1.0-4.8) k/uL APTT (22.0-30.0) sec ABG pH 7.15 L* (7.35-7.45) ABG pCO2 86 H* (35-45) mmHg ABG pO2 70 L (83-108) mmHg ABG HCO3 30 H (21-25) mmol/L ABG Total CO2 33 H (19-24) mmol/L ABG O2 Saturation 88.3 L (94-97) % Chloride (98-107) mmol/L Carbon Dioxide (22-30) mmol/L BUN (9-20) mg/dL Creatinine (0.66-1.25) mg/dL Glucose (74-99) mg/dL POC Glucose (mg/dL) 162 H 171 H (75-99) mg/dL Calcium (8.4-10.2) mg/dL Total Protein (6.3-8.2) g/dL Albumin (3.5-5.0) g/dL 01/22/22 01/22/22 01/22/22 Range/Units 01:31 02:00 02:00 RBC (4.30-5.90) m/uL Hgb (13.0-17.5) gm/dL Hct (39.0-53.0) % MCV (80.0-100.0) fL MCHC (31.0-37.0) g/dL RDW (11.5-15.5) % Lymphocytes # (1.0-4.8) k/uL APTT 31.3 H (22.0-30.0) sec ABG pH (7.35-7.45) ABG pCO2 48 H (35-45) mmHg ABG pO2 (83-108) mmHg ABG HCO3 30 H (21-25) mmol/L ABG Total CO2 32 H (19-24) mmol/L ABG O2 Saturation (94-97) % Chloride 111 H (98-107) mmol/L Carbon Dioxide 31 H (22-30) mmol/L BUN 72 H (9-20) mg/dL Creatinine 1.85 H (0.66-1.25) mg/dL Glucose 152 H (74-99) mg/dL POC Glucose (mg/dL) (75-99) mg/dL Calcium 7.9 L (8.4-10.2) mg/dL Total Protein 5.1 L (6.3-8.2) g/dL Albumin 1.9 L (3.5-5.0) g/dL 01/22/22 01/22/22 01/22/22 Range/Units 02:00 03:13 06:12 RBC 2.47 L (4.30-5.90) m/uL Hgb 7.5 L (13.0-17.5) gm/dL Hct 24.7 L (39.0-53.0) % MCV 100.2 H (80.0-100.0) fL MCHC 30.2 L (31.0-37.0) g/dL RDW 15.8 H (11.5-15.5) % Lymphocytes # 0.2 L (1.0-4.8) k/uL APTT (22.0-30.0) sec ABG pH (7.35-7.45) ABG pCO2 (35-45) mmHg ABG pO2 (83-108) mmHg ABG HCO3 (21-25) mmol/L ABG Total CO2 (19-24) mmol/L ABG O2 Saturation (94-97) % Chloride (98-107) mmol/L Carbon Dioxide (22-30) mmol/L BUN (9-20) mg/dL Creatinine (0.66-1.25) mg/dL Glucose (74-99) mg/dL POC Glucose (mg/dL) 156 H 116 H (75-99) mg/dL Calcium (8.4-10.2) mg/dL Total Protein (6.3-8.2) g/dL Albumin (3.5-5.0) g/dL Microbiology - Last 24 Hours (Table) 01/22/22 02:00 Sputum Culture - Preliminary Sputum Assessment and Plan Assessment: Septic shock secondary to Pseudomonas,repeat culture reported Proprionibacterium species bacteremia, abdominal cultures reporting Pseudomonas as well as blood cultures. Acute hypoxic respiratory failure secondary to the above. Reintubated secondary to recurrent hypoxic and hypercapnic respiratory failure, suspecting mucous plugging, bronchoscopy pending Hypotension, secondary to septic shock,status post pressor dependent Acute renal failure secondary to septic shock, hypotension hypernatremia Dysphagia,failed swallow evaluation anemia Atrial fibrillation with RVR, new onset-suspect related to septic shock and bacteremia, currently sinus rhythm Thrombocytopenia, HIT W/U in progress Hyperkalemia secondary to the above Labs acidosis secondary to septic shock with bacteremia Metabolic acidosis secondary to acute renal failure, status post bicarb drip Incarcerated hernia status post colostomy creation Diabetes mellitus type 2 History of bladder cancer with previous urostomy Medical debility Plan: Continue on current medication regime ,monitoring and symptomatic treatment. Return to ICU as mentioned above, ICU management as per physician assistant certified. Bronchoscopy pending. PEG tube pending. Antibiotics as per ID. Prognosis guard ed given multiple complex medical issues. The impression and plan of care has been dictated as directed. : I performed a history and examination of this patient, discussed the same with the dictator. I agree with the dictator's note ,documented as a scribe. Any additional findings or plans will be noted.
[2022-01-22 18:31] VITALS: BP 68/25
[2022-01-22 20:26] VITALS: RESP 10
[2022-01-22 20:57] LABS: Appearance,BF Cloudy
--- NOTE | 2022-01-22 23:43 | P.PN ---
Subjective Progress Note Date: 01/22/22 Patient was seen for a follow up. Patient was reintubated yesterday, transferred back to ICU due to recurrent hypoxic and hypercapnic respiratory failure, on mechanical ventilator. XR showed right lung collapse and unable to clear the secretions/mucous plug. Bronch was performed today. Family has later decided terminal weaning and patient was extubated now on comfort care/hospice Objective - Vital Signs Vital signs: Vital Signs Temp 97.8 F 01/22/22 08:00 Pulse 58 L 01/22/22 12:30 Resp 10 L 01/22/22 20:00 BP 68/25 01/22/22 18:31 Pulse Ox 100 01/22/22 12:30 Intake & Output 01/22/22 01/22/22 01/23/22 06:59 18:59 06:59 Intake Total 880.558 740.896 Output Total 1360 925 Balance -479.442 -184.104 Weight 91 kg 91 kg Intake: IV 500 425 Dextrose 5% in Water 1, 500 400 000 ml @ 100 mls/hr IV . Q10H [facility] Rx#:[id number] Intake, IV Titration 380.558 315.896 Amount Cisatracurium 200 mg In 14.445 67.073 Sodium Chloride 0.9% 180 ml @ 1 MCG/KG/MIN 5.778 mls/hr IV .Q24H [facility] Rx#: [id number] Dextrose 5% in Water 1, 100 000 ml @ 100 mls/hr IV . Q10H [facility] Rx#:[id number] Heparin Sod,Pork in 0.45% 190.22 NaCl 25,000 unit In 0.45 % NaCl 1 250ml.bag @ 10. 384 UNITS/KG/HR 10 mls/hr IV .Q24H [facility] Rx#: [id number] Morphine Sulfate (100 mg/ 0.255 2 ml) 100 mg In Sodium Chloride 0.9% 100 ml @ 1 MG/HR 1.02 mls/hr IV . Q24H [facility] Rx#:[id number] Norepinephrine 4 mg In 62.373 105.789 Sodium Chloride 0.9% 250 ml @ 0.05 MCG/KG/MIN 18. 345 mls/hr IV .[id number] [facility] Rx#:[id number] propofoL 1,000 mg In 13.52 142.779 Empty Bag 1 bag @ Titrate IV .Q0M [facility] Rx#: [id number] Output: Urine 1360 925 Other: Voiding Method Ileal Conduit (Right) Ileal Conduit (Right) ABP, PAP, CO, CI - Last Documented Arterial Blood Pressure 92/28 - Exam Patient appears comatose, not responding to stimuli. Appears moribund. - Labs CBC & Chem 7: 01/22/22 02:00 01/22/22 02:00 Labs: Abnormal Lab Results - Last 24 Hours (Table) 01/21/22 01/22/22 01/22/22 Range/Units 23:58 00:07 00:26 RBC (4.30-5.90) m/uL Hgb (13.0-17.5) gm/dL Hct (39.0-53.0) % MCV (80.0-100.0) fL MCHC (31.0-37.0) g/dL RDW (11.5-15.5) % Lymphocytes # (1.0-4.8) k/uL APTT (22.0-30.0) sec ABG pH 7.15 L* (7.35-7.45) ABG pCO2 86 H* (35-45) mmHg ABG pO2 70 L (83-108) mmHg ABG HCO3 30 H (21-25) mmol/L ABG Total CO2 33 H (19-24) mmol/L ABG O2 Saturation 88.3 L (94-97) % Chloride (98-107) mmol/L Carbon Dioxide (22-30) mmol/L BUN (9-20) mg/dL Creatinine (0.66-1.25) mg/dL Glucose (74-99) mg/dL POC Glucose (mg/dL) 162 H 171 H (75-99) mg/dL Calcium (8.4-10.2) mg/dL Total Protein (6.3-8.2) g/dL Albumin (3.5-5.0) g/dL 01/22/22 01/22/22 01/22/22 Range/Units 01:31 02:00 02:00 RBC (4.30-5.90) m/uL Hgb (13.0-17.5) gm/dL Hct (39.0-53.0) % MCV (80.0-100.0) fL MCHC (31.0-37.0) g/dL RDW (11.5-15.5) % Lymphocytes # (1.0-4.8) k/uL APTT 31.3 H (22.0-30.0) sec ABG pH (7.35-7.45) ABG pCO2 48 H (35-45) mmHg ABG pO2 (83-108) mmHg ABG HCO3 30 H (21-25) mmol/L ABG Total CO2 32 H (19-24) mmol/L ABG O2 Saturation (94-97) % Chloride 111 H (98-107) mmol/L Carbon Dioxide 31 H (22-30) mmol/L BUN 72 H (9-20) mg/dL Creatinine 1.85 H (0.66-1.25) mg/dL Glucose 152 H (74-99) mg/dL POC Glucose (mg/dL) (75-99) mg/dL Calcium 7.9 L (8.4-10.2) mg/dL Total Protein 5.1 L (6.3-8.2) g/dL Albumin 1.9 L (3.5-5.0) g/dL 01/22/22 01/22/22 01/22/22 Range/Units 02:00 03:13 06:12 RBC 2.47 L (4.30-5.90) m/uL Hgb 7.5 L (13.0-17.5) gm/dL Hct 24.7 L (39.0-53.0) % MCV 100.2 H (80.0-100.0) fL MCHC 30.2 L (31.0-37.0) g/dL RDW 15.8 H (11.5-15.5) % Lymphocytes # 0.2 L (1.0-4.8) k/uL APTT (22.0-30.0) sec ABG pH (7.35-7.45) ABG pCO2 (35-45) mmHg ABG pO2 (83-108) mmHg ABG HCO3 (21-25) mmol/L ABG Total CO2 (19-24) mmol/L ABG O2 Saturation (94-97) % Chloride (98-107) mmol/L Carbon Dioxide (22-30) mmol/L BUN (9-20) mg/dL Creatinine (0.66-1.25) mg/dL Glucose (74-99) mg/dL POC Glucose (mg/dL) 156 H 116 H (75-99) mg/dL Calcium (8.4-10.2) mg/dL Total Protein (6.3-8.2) g/dL Albumin (3.5-5.0) g/dL Microbiology - Last 24 Hours (Table) 01/22/22 10:20 Bronchial Washings Culture - Preliminary Bronchoalviolar Lavage - Right 01/22/22 10:20 Fungal Culture - Preliminary Bronchoalviolar Lavage - Right 01/22/22 10:20 Acid Fast Bacilli Culture - Preliminary Bronchoalviolar Lavage - Right 01/22/22 02:00 Sputum Culture - Preliminary Sputum Assessment and Plan Assessment: * Altered mental status, likely due to toxic metabolic encephalopathy. Patient's anemia, hypernatremia, hypokalemia, renal insufficiency and perhaps underlying pulmonary dysfunction are the likely causes. CT head showed no acute stroke. * Status post reintubation for VDRF. * Atrial fibrillation with rapid ventricular rate, * Strangulated parastomal hernia and incision hernia, status post exploratory laparotomy. Repair of strength related parastomal hernia, small bowel resection with ileostomy and repair of incisional hernia. * Abdominal incision infection * Sepsis with septic shock due to Pseudomonas * Acute kidney injury * Chronic renal disease. * Hypertension * Hyperlipidemia * Diabetes * Coronary artery disease * Hypernatremia Plan: * Patient's encephalopathy has got further worse. * Stat computed tomography scan of the head was done, which showed no evidence of an acute stroke. * Patient has history of atrial fibrillation, currently on aspirin, also on heparin IV. PTT is therapeutic. * Medical management as per IM, and other specialties. * Patient is now on hospice care with comfort care. Patient extubated. * We will sign off.
--- NOTE | 2022-01-28 15:50 | CDI ---
Documentation Clarification Form Date: 01/28/2022 03:33:19 PM From: Marlena Hammond RN, CCDS Email: [email or web address] Admit Date: 01/06/2022 06:50:00 PM Patient Name: Xavier Langford Visit Number: [id number] Discharge Date: 01/23/2022 02:24:00 AM ATTENTION: The Clinical Documentation Specialists (CDI) and [facility] Coding Staff appreciate your assistance in clarifying documentation. Please respond to the clarification below the line at the bottom and electronically sign. The CDI & [facility] Coding staff will review the response and follow-up if needed. Please note: Queries are made part of the Legal Health Record. If you have any questions, please contact the author of this message via ITS. Dr. Colin Weinberg Abdominal incision infection is documented in the 01/13 progress note. The patient had an exploratory lap with repair of strangulated parastomal hernia and small bowel resection with ileostomy. Additional clarification is requested regarding the relationship, if any, that exists between the diagnosis and the procedure. Patients Admitting Diagnosis: Strangulated parastomal hernia Post-Operative Diagnosis: Strangulated parastomal hernia. Incisional hernia Procedure performed: Exploratory laparotomy. Repair of strangulated parastomal hernia Small bowel resection with ileostomy. Repair of incisional hernia History/Risk Factors: episode of coughing, He then developed a mass at his ostomy site, developed pain and tenderness throughout the day. CAT scan shows a large parastomal hernia with possible strangulated the bowel. Urostomy was done at [facility] several years ago. History of bladder cancer. Clinical Indicators: 01/13 PN: ABDOMEN: Soft. Non-distended. Incision site with 2 areas of purulent drainage. Abdominal incision infection. 01/18 PN: Urostomy on the left, ileostomy on the right, midline incision from his recent surgery seems to be infected, and serous drainage noted from the bottom aspect of the incision. The incision seems to be . Treatment: IV Daptomycin, IV Meropenem and Diflucan. Abdomen: Distended, soft, ileostomy and urostomy, abdominal surgical site, 2 open areas with yuliya removed, packed with gauze ID Consults: positive blood culture with pseudomonas. Pt noticed to have an abdominal incision dehiscence. Source is likely abdominal. Repeat culture grew propionibacterium. What relationship, if any, exists between the incision site infection and the procedure? [ ] Abdominal incision infection is a complication of surgical procedure [ ] Abdominal incision infection is an expected outcome of the surgical procedure [ x ] Abdominal incision infection is related to patients co-morbid conditions & not a complication of the procedure [ ] Other please specify ____ [ ] Unable to determine MTDD
== END 2022-01-23 02:24 | disposition expired | DRG 853 ==
LOC: EC 13:26 → 4SSUR 18:50 → 3SCARD 21:46 → 3NCARDOBS 01-07 02:23 → 2SICU 01-07 12:20 → 3SCARD 01-17 22:36 → 2SICU 01-22 01:15
PROVIDERS: ADMIT Surgery; ATTEND Surgery
PROC: 0DB80ZZ Excision of Small Intestine, Open Approach (ICD-10-PCS; 2022-01-06)
PROC: 0D1B0Z4 Bypass Ileum to Cutaneous, Open Approach (ICD-10-PCS; principal; 2022-01-06 19:15)
PROC: 0WQF0ZZ Repair Abdominal Wall, Open Approach (ICD-10-PCS; 2022-01-06 19:15)
PROC: 5A1955Z Respiratory Ventilation, Greater than 96 Consecutive Hours (ICD-10-PCS; 2022-01-09)
PROC: 0BH17EZ Insertion of Endotracheal Airway into Trachea, Via Natural or Artificial Opening (ICD-10-PCS; 2022-01-09)
PROC: 3E033XZ Introduction of Vasopressor into Peripheral Vein, Percutaneous Approach (ICD-10-PCS; 2022-01-09)
PROC: 3E0336Z Introduction of Nutritional Substance into Peripheral Vein, Percutaneous Approach (ICD-10-PCS; 2022-01-10)
PROC: 02HV33Z Insertion of Infusion Device into Superior Vena Cava, Percutaneous Approach (ICD-10-PCS; 2022-01-15)
PROC: B548ZZA Ultrasonography of Superior Vena Cava, Guidance (ICD-10-PCS; 2022-01-15)
PROC: 30233N1 Transfusion of Nonautologous Red Blood Cells into Peripheral Vein, Percutaneous Approach (ICD-10-PCS; 2022-01-16)
PROC: 0BH17EZ Insertion of Endotracheal Airway into Trachea, Via Natural or Artificial Opening (ICD-10-PCS; 2022-01-21)
PROC: 0BCF8ZZ Extirpation of Matter from Right Lower Lung Lobe, Via Natural or Artificial Opening Endoscopic (ICD-10-PCS; 2022-01-22)
PROC: 0BCC8ZZ Extirpation of Matter from Right Upper Lung Lobe, Via Natural or Artificial Opening Endoscopic (ICD-10-PCS; 2022-01-22)
PROC: 0BCD8ZZ Extirpation of Matter from Right Middle Lung Lobe, Via Natural or Artificial Opening Endoscopic (ICD-10-PCS; 2022-01-22)
PROC: 0BC38ZZ Extirpation of Matter from Right Main Bronchus, Via Natural or Artificial Opening Endoscopic (ICD-10-PCS; 2022-01-22)
PROC: 4A133B1 Monitoring of Arterial Pressure, Peripheral, Percutaneous Approach (ICD-10-PCS; 2022-01-22)
PROC: 4A133J1 Monitoring of Arterial Pulse, Peripheral, Percutaneous Approach (ICD-10-PCS; 2022-01-22)
DX: A41.52 Sepsis due to Pseudomonas (principal); E43 Unspecified severe protein-calorie malnutrition; G92.8 Other toxic encephalopathy; J96.01 Acute respiratory failure with hypoxia; J96.02 Acute respiratory failure with hypercapnia; K55.069 Acute infarction of intestine, part and extent unspecified; K65.1 Peritoneal abscess; N17.0 Acute kidney failure with tubular necrosis; R65.21 Severe sepsis with septic shock; K63.1 Perforation of intestine (nontraumatic); B37.1 Pulmonary candidiasis; D62 Acute posthemorrhagic anemia; E27.40 Unspecified adrenocortical insufficiency; E87.0 Hyperosmolality and hypernatremia; E87.1 Hypo-osmolality and hyponatremia; E87.2 Acidosis; G62.81 Critical illness polyneuropathy; I13.0 Hypertensive heart and chronic kidney disease with heart failure and stage 1 through stage 4 chronic kidney disease, or unspecified chronic kidney disease; I42.9 Cardiomyopathy, unspecified; J98.19 Other pulmonary collapse; K94.13 Enterostomy malfunction; N13.30 Unspecified hydronephrosis; Z99.11 Dependence on respirator [ventilator] status; K43.3 Parastomal hernia with obstruction, without gangrene; J44.0 Chronic obstructive pulmonary disease with (acute) lower respiratory infection; B37.0 Candidal stomatitis; N13.8 Other obstructive and reflux uropathy; T81.32XA Disruption of internal operation (surgical) wound, not elsewhere classified, initial encounter; Z66 Do not resuscitate; T17.998A Other foreign object in respiratory tract, part unspecified causing other injury, initial encounter; T38.0X5A Adverse effect of glucocorticoids and synthetic analogues, initial encounter; T50.2X5A Adverse effect of carbonic-anhydrase inhibitors, benzothiadiazides and other diuretics, initial encounter; Z51.5 Encounter for palliative care; I50.9 Heart failure, unspecified; D63.8 Anemia in other chronic diseases classified elsewhere; D69.6 Thrombocytopenia, unspecified; E11.22 Type 2 diabetes mellitus with diabetic chronic kidney disease; E11.65 Type 2 diabetes mellitus with hyperglycemia; E78.00 Pure hypercholesterolemia, unspecified; E78.5 Hyperlipidemia, unspecified; E86.0 Dehydration; E87.5 Hyperkalemia; E87.6 Hypokalemia; F17.210 Nicotine dependence, cigarettes, uncomplicated; H54.61 Unqualified visual loss, right eye, normal vision left eye; I48.0 Paroxysmal atrial fibrillation; I25.10 Atherosclerotic heart disease of native coronary artery without angina pectoris; I25.2 Old myocardial infarction; R13.10 Dysphagia, unspecified; I49.3 Ventricular premature depolarization; L89.159 Pressure ulcer of sacral region, unspecified stage; M10.9 Gout, unspecified; J84.89 Other specified interstitial pulmonary diseases; N18.9 Chronic kidney disease, unspecified; N40.0 Benign prostatic hyperplasia without lower urinary tract symptoms; B37.7 Candidal sepsis; Z79.01 Long term (current) use of anticoagulants; Z79.02 Long term (current) use of antithrombotics/antiplatelets; Z79.4 Long term (current) use of insulin; Z79.82 Long term (current) use of aspirin; Z79.84 Long term (current) use of oral hypoglycemic drugs; Z79.891 Long term (current) use of opiate analgesic; Z79.899 Other long term (current) drug therapy; Z80.0 Family history of malignant neoplasm of digestive organs; Z80.3 Family history of malignant neoplasm of breast; Z82.49 Family history of ischemic heart disease and other diseases of the circulatory system; Z85.51 Personal history of malignant neoplasm of bladder; Z90.6 Acquired absence of other parts of urinary tract; Z93.3 Colostomy status; Z93.6 Other artificial openings of urinary tract status; Z95.5 Presence of coronary angioplasty implant and graft; X58.XXXA Exposure to other specified factors, initial encounter; Z98.41 Cataract extraction status, right eye; Z96.1 Presence of intraocular lens; R54 Age-related physical debility
CPT/HCPCS: 31624; 31645; 36415; 36573; 36600; 70450; 71045; 74176; 80048; 80053; 81001; 82040; 82150; 82272; 82330; 82533; 82805; 83605; 83690; 83735; 84100; 84132; 84295; 84443; 84478; 84484; 85025; 85027; 85384; 85610; 85730; 86022; 86140; 86850; 86900; 86901; 87040; 87070; 87077; 87086; 87102; 87116; 87186; 87205; 87206; 87635; 88307; 89050; 93005; 93306; 94002; 94003; 94640; 94760; 96374; 96375; 99285